=== PATIENT | female | born 1955 | race Caucasian/White ===

== ENCOUNTER 2017-01-22 00:53 | Inpatient (IN) ==
--- NOTE | 2017-01-22 02:59 | Emergency Department Note ---
I, Bernie Chow, am scribing for, and in the presence of, Niya Ruelas MD 01:37. IJessenia Leanne, MD, personally performed the services described in this documentation, ascribed by Bernie Chow in my presence, and it is both accurate and complete . Arrival - Arrival Chief Complaint: Shortness of Breath Stated Complaint: shortness of breath ED Nursing Triage Note: Patient to room via ems. Patient was transfered from [facility] for shortness of breath due to renal failure. Patient states she just feels week. Mode of Arrival: Stretcher Limitations: No Limitations Source: Patient - History of Present Illness HPI Narrative: Pt is a 61 y/o female that was transferred to the ED from [facility] via EMS with c/o SOB that has been going on for 6 weeks. Pt has associated sxs of weakness, epistaxis, urgency to urinate but unable to, bilateral edema in lower extremities, and bleeding from the site she is dialyzed at on her right arm for 3 days. Pt reports she is able to make some urine. She states she was last dialyzed on Thursday, January 19, 2017. Pt admits she is on a blood thinner but is unsure of which one. 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 Carr at the [facility] [place] in [place], [place]. Pt denies going to her follow ups since surgery yet. Pt reports this is the first time she has came to the ED for the SOB since it came on. Pt states some relief with sitting up. Pt reports she used to smoke but quit after her CABG 6 weeks ago. Pt has a PMHx of COPD, Hepatitis C, end stage renal failure, and IDDM. No other complaints/pain in ED. Onset (ago): week(s) Consistency: constant Severity: moderate Severity scale (1-10): 5 Quality: other Allergies/Adverse Reactions: Allergies Allergy/AdvReac Type Severity Reaction Status Date / Time Iodinated Contrast Media - Allergy RASH Verified 01/22/17 01:00 Oral and [Iodinated Contrast Media - IV Dye] Penicillins Allergy ANAPHYLAXIS Verified 01/22/17 01:00 aspirin AdvReac Nausea Verified 01/22/17 01:00 cephalexin [From Keflex] AdvReac Vomiting Verified 01/22/17 01:00 Sulfa (Sulfonamide AdvReac Vomiting Verified 01/22/17 01:00 Antibiotics) Home Medications: Home Medications Medication Instructions Recorded Confirmed Type ARIPiprazole [Abilify] 10 mg PO BEDTIME 04/04/16 04/04/16 History Azelastine HCl [Azelastine 0.1% 1 spray BOTH NARES BID 04/04/16 04/04/16 History Nasal [place]] Budesonide/Formoterol 160-4.5 1 puff INH BID 04/04/16 04/04/16 History [Symbicort 160-4.5] Calcium Acetate [Phoslo] 667 mg PO TID W/MEALS 04/04/16 04/04/16 History Cinacalcet HCl [Sensipar] 60 mg PO DAILY W/SUPPER 04/04/16 04/04/16 History Cyclobenzaprine [Flexeril] 10 mg PO TID 04/04/16 04/04/16 History Diazepam Tab [Valium Tab] 2 mg PO BID 04/04/16 04/04/16 History Fexofenadine [Orin] 60 mg PO DAILY 04/04/16 04/04/16 History Fluticasone 50 Mcg Nasal [place] 1 spray BOTH NARES DAILY 04/04/16 04/04/16 History [Flonase Nasal [place]] Levothyroxine Tab [Synthroid Tab] 50 mcg PO DAILY@0700 04/04/16 04/04/16 History Linagliptin [Tradjenta] 5 mg PO DAILY 04/04/16 04/04/16 History Lurasidone HCl [Latuda] 20 mg PO BIDPC 04/04/16 04/04/16 History Mirtazapine 7.5 mg PO BID 04/04/16 04/04/16 History Mirtazapine [Remeron] 15 mg PO BEDTIME PRN 04/04/16 04/04/16 History Pantoprazole Tab [Protonix Tab] 40 mg PO BID 04/04/16 04/04/16 History Pravastatin [Pravachol] 20 mg PO BEDTIME 04/04/16 04/04/16 History Pregabalin [Lyrica] 50 mg PO BEDTIME 04/04/16 04/04/16 History Promethazine Liquid [Phenergan 25 mg PO Q6H 04/04/16 04/04/16 History Liquid] Promethazine Tab [Phenergan Tab] 25 mg PO Q6H PRN 04/04/16 04/04/16 History Ropinirole HCl [Requip] 0.5 mg PO BEDTIME 04/04/16 04/04/16 History Warfarin Sodium [Jantoven] 10 mg PO DAILY 04/04/16 04/04/16 History clonazePAM [Klonopin] 1 mg PO BID PRN 04/04/16 04/04/16 History levETIRAcetam TAB [Keppra Tab] 500 mg PO BID 04/04/16 04/04/16 History tiZANidine [Zanaflex] 4 mg PO TID 04/04/16 04/04/16 History Review of System - Review of System 12 point system: reviewed and no additional remarkable complaints except as stated - Review of System Constitutional: Present: weakness. Absent: chills, fever Head/Ears/Nose/Throat: Present: epistaxis Respiratory: Present: other (SOB) Cardiovascular: Absent: chest pain Gastrointestinal: Absent: abdominal pain, nausea, vomiting Genitourinary female: Present: urgency (urgency but unable to urinate) Musculoskeletal: Present: other (bilateral edema of the lower extremities). Absent: arm pain, back pain, neck pain Skin: Present: other (bleeding at site pt is dialyzed at on right arm). Absent : rash Neurological: Absent: headache Psychiatric: Absent: anxiety Medical,Surgical,& Family Hx - Medical History Neurology: History of: Seizures (TAKES KEPPRA), Vertigo Endocrine: History of: Diabetes Mellitus (IDDM), Dyslipidemia Other: History of: Miscellaneous Medical Problems (Sinus surgery) - Surgical History HEENT Surgeries: Surgical HX of: Tonsilectomy & Adenoidectomy Abdominal Surgeries: Surgical HX of: Cholecystectomy - Social History Smoking Status: Never smoker Frequency of Alcohol Use: None Type of Drug Use: None Exam Vital Signs: Vital Signs Temperature 97.2 F L 01/22/17 00:53 Pulse Rate 90 01/22/17 00:53 Respiratory Rate 20 01/22/17 00:53 Blood Pressure 167/101 01/22/17 00:53 O2 Sat by Pulse Oximetry 93 L 01/22/17 00:53 - General General appearance: alert, in no apparent distress - Head Head exam: Present: atraumatic, normocephalic - Eye Eye exam: Present: PERRL, EOMI - ENT ENT exam: Present: mucous membranes moist, other (epistaxis). Absent: mucous membranes dry - Neck Neck exam: Present: full ROM. Absent: tenderness - Chest Chest inspection: Present: symmetric chest wall rise. Absent: tenderness - Respiratory Respiratory exam: Present: normal lung sounds bilaterally. Absent: respiratory distress - Cardiovascular Cardiovascular exam: Present: regular rate, normal rhythm. Absent: normal heart sounds (mechanical heart sounds) - Abdominal Exam Abdominal exam: Present: soft. Absent: tenderness - Extremities Exam Extremities exam: Present: full ROM, pedal edema. Absent: tenderness - Back Exam Back exam: Present: full ROM. Absent: tenderness - Neurological Exam Neurological exam: Present: alert, oriented X3, CN II-XII intact. Absent: motor sensory deficit - Psychiatric Psychiatric exam: Present: normal affect, normal mood - Skin Skin exam: Present: warm, dry, other (multiple sites that are bleeding from previous blood draw attempts and dialysis site) Course Course Narrative: attempted EJ placement with ultrasound but never got flash back. Was apparently in because pt developed hematoma. bandage applied. Figure 8 stitch places at last dialysis site with resolution of bleeding. Disposition Clinical Impression: Anemia, CKD (chronic kidney disease), SOB (shortness of breath), Bleeding from dialysis shunt Case discussed with: patient Condition: Guarded Additional Instructions: admit to hospitalist
[2017-01-22 03:22] LABS: Basophils # 0.1 10*3/uL (0.0-0.2); Basophils % 0.6 % (0.0-0.8); Eosinophils # 0.1 10*3/uL (0.0-0.87); Hematocrit 23.3 VOL% (35.7-47.0); Hemoglobin 7.1 GM/DL (12.0-16.0); Immature Granulocytes Absolute 0.09 #; Lymphocytes # 1.4 10*3/uL (1.4-4.0); Lymphocytes % 15.5 % (21.3-54.2); Mean Corpuscular HGB Conc 30.5 GM/DL (32-36); Mean Corpuscular Hemoglobin 32 PG (27-34); Mean Corpuscular Volume 104.5 FL (87-102); Mean Platelet Volume 11.2 FL (9.6-12.0); Monocytes # 0.7 10*3/uL (0.11-0.8); Monocytes % 7.7 % (1.7-12.7); NRBC # 0.03 10*3/uL; Neutrophils # 6.9 10*3/uL (1.4-7.4); Neutrophils % 74.2 % (38.7-73.9); Platelet Count 176 T/CUMM (130-400); Red Blood Count 2.23 MC/CUMM (3.8-5.5); Red Cell Distribution Width 26.1 % (9.3-17.3); White Blood Count 9.2 T/CUMM (4-12)
[2017-01-22] MEDS ORDERED: ALBUTEROL 2.5 MG/3 ML NEB RESP TX PRN ×2 (03:22→03:33)
--- NOTE | 2017-01-22 03:43 | Hospitalist History & Physical ---
Assessment and Plan (1) History of COPD Status: Acute Current Visit: Yes (2) Elevated proBNP Status: Acute Current Visit: Yes (3) Increase in transaminases Status: Acute Current Visit: Yes (4) ESRD on dialysis Problem details: Routine CHD today. 2K, 4hrs. Status: Chronic Current Visit : No (5) Anemia Status: Acute Current Visit: Yes (6) SOB (shortness of breath) Status: Acute Current Visit: Yes (7) Bleeding from dialysis shunt Status: Acute Assessment and plan: We will admit this patient to the unit for closer observation. Although her vital signs are stable her general appearance is concerning for me. She says that she is short of breath want to get a 2D echo of her heart. Coags were drawn at outside facility that have been ordered here will need to follow-up on that. Recommend that she get a couple units of packed red blood cells transfused during dialysis. Will consult nephrology for their input. Depending on the results of the echo may or may not need to consult cardiology. Put in order to confirm home medications. They have not been confirmed. We do know that patient is on warfarin and INR has been ordered and it has come back at 18.8. Discussed with pharmacy about appropriate options given his high INR and active signs of bleeding. We are going to explore Kcentra and vitamin K. I can not do a central line with an INR that high. We do not want to drive the INR to below 2.5 secondary to her having heart valves that are mechanical. Pharmacy will dose the Kcentra and we will repeat an INR this morning. Current Visit: Yes History of Present Illness Chief complaint: Shortness of breath History of present illness: Ms. Betancourt is a 61 year old female past medical history of end-stage renal disease COPD, asthma, peripheral neuropathy, and seizure disorder who was in her normal state of health until approximately 2 days ago. She presented an outside hospital with shortness of breath. She reports that is at rest. She reports that is gradually worsened over the past few days. She says she has been short of breath ever since her valve surgery which involve replacing 2 valves in about past at [facility]. She has been on Coumadin but does not has not had the INR checked in a couple of weeks. She denies any chest pain. There has been no upper airway symptoms associated with this. Patient was found to have elevated proBNP at the outside hospital. Patient was accepted his transfer to our hospital. Patient does look short of breath although her vital signs stable I would feel more comfortable if she was in the unit setting. IV access is being issue. Patient has refused central arm. I was consulted to admit her through the emergency room. Home Medications Medication Instructions Recorded Confirmed Type ARIPiprazole [Abilify] 10 mg PO BEDTIME 04/04/16 04/04/16 History Azelastine HCl [Azelastine 0.1% 1 spray BOTH NARES BID 04/04/16 04/04/16 History Nasal [place]] Budesonide/Formoterol 160-4.5 1 puff INH BID 04/04/16 04/04/16 History [Symbicort 160-4.5] Calcium Acetate [Phoslo] 667 mg PO TID W/MEALS 04/04/16 04/04/16 History Cinacalcet HCl [Sensipar] 60 mg PO DAILY W/SUPPER 04/04/16 04/04/16 History Cyclobenzaprine [Flexeril] 10 mg PO TID 04/04/16 04/04/16 History Diazepam Tab [Valium Tab] 2 mg PO BID 04/04/16 04/04/16 History Fexofenadine [Orin] 60 mg PO DAILY 04/04/16 04/04/16 History Fluticasone 50 Mcg Nasal [place] 1 spray BOTH NARES DAILY 04/04/16 04/04/16 History [Flonase Nasal [place]] Levothyroxine Tab [Synthroid Tab] 50 mcg PO DAILY@0700 04/04/16 04/04/16 History Linagliptin [Tradjenta] 5 mg PO DAILY 04/04/16 04/04/16 History Lurasidone HCl [Latuda] 20 mg PO BIDPC 04/04/16 04/04/16 History Mirtazapine 7.5 mg PO BID 04/04/16 04/04/16 History Mirtazapine [Remeron] 15 mg PO BEDTIME PRN 04/04/16 04/04/16 History Pantoprazole Tab [Protonix Tab] 40 mg PO BID 04/04/16 04/04/16 History Pravastatin [Pravachol] 20 mg PO BEDTIME 04/04/16 04/04/16 History Pregabalin [Lyrica] 50 mg PO BEDTIME 04/04/16 04/04/16 History Promethazine Liquid [Phenergan 25 mg PO Q6H 04/04/16 04/04/16 History Liquid] Promethazine Tab [Phenergan Tab] 25 mg PO Q6H PRN 04/04/16 04/04/16 History Ropinirole HCl [Requip] 0.5 mg PO BEDTIME 04/04/16 04/04/16 History Warfarin Sodium [Jantoven] 10 mg PO DAILY 04/04/16 04/04/16 History clonazePAM [Klonopin] 1 mg PO BID PRN 04/04/16 04/04/16 History levETIRAcetam TAB [Keppra Tab] 500 mg PO BID 04/04/16 04/04/16 History tiZANidine [Zanaflex] 4 mg PO TID 04/04/16 04/04/16 History Allergies Allergy/AdvReac Type Severity Reaction Status Date / Time Iodinated Contrast Media - Allergy RASH Verified 01/22/17 01:00 Oral and [Iodinated Contrast Media - IV Dye] Penicillins Allergy ANAPHYLAXIS Verified 01/22/17 01:00 aspirin AdvReac Nausea Verified 01/22/17 01:00 cephalexin [From Keflex] AdvReac Vomiting Verified 01/22/17 01:00 Sulfa (Sulfonamide AdvReac Vomiting Verified 01/22/17 01:00 Antibiotics) Medical,Surgical,& Family Hx - Medical History Neurology: History of: Seizures (TAKES KEPPRA), Vertigo Endocrine: History of: Diabetes Mellitus (IDDM), Dyslipidemia Other: History of: Miscellaneous Medical Problems (Sinus surgery) - Surgical History Cardiac Surgeries: Sugical HX of: Cardiac Surgery HEENT Surgeries: Surgical HX of: Tonsilectomy & Adenoidectomy Abdominal Surgeries: Surgical HX of: Cholecystectomy - Family History Family History: Reports;: Family Cancer, Family Diabetes, Family Heart Disease, Family Hypertension, Family Stroke - Social History Smoking Status: Former smoker Frequency of Alcohol Use: None Type of Drug Use: None 12 point system: reviewed and no additional remarkable complaints except as stated Exam - Constitutional Vitals: Period Temp Pulse Resp BP Sys/Vargas Pulse Ox Last 24 Hr 97.2 F-97.2 F 90-90 20-20 167-167/101-101 93 - General General appearance: alert, in some apparent distress - Head Head exam: Present: atraumatic, normocephalic - Eye Eye exam: Present: PERRL, EOMI - ENT ENT exam: Present: mucous membranes moist, other (epistaxis) - Neck Neck exam: Present: full ROM. Absent: tenderness - Chest Chest inspection: Present: symmetric chest wall rise. Absent: tenderness - Respiratory Respiratory exam: Present: Some rales bilaterally and slight wheeze - Cardiovascular Cardiovascular exam: Present: regular rate, normal rhythm. With mechanical heart valve sounds . - Abdominal Exam Abdominal exam: Present: soft. Absent: tenderness - Extremities Exam Extremities exam: Present: full ROM, pedal edema. Absent: tenderness - Back Exam Back exam: Present: full ROM. Absent: tenderness - Neurological Exam Neurological exam: Present: alert, oriented X3, CN II-XII intact. Absent: motor sensory deficit - Psychiatric Psychiatric exam: Present: normal affect, normal mood - Skin Skin exam: Present: warm, dry, other (multiple sites that are bleeding from previous blood draw attempts and dialysis site) Results - Labs CBC & BMP: 01/22/17 03:15 Labs: Labs from outside facility white count 7.36 hemoglobin 6. hematocrit 23.8 platelets 167 sodium 140 potassium 4.1 chloride 100 bicarb 30 creatinine 6.6 BUN 50 calcium 8.9 glucose 140 7. total bili 2.7 total protein 6.5 albumin 3.0 ALP is 123 ALT is 123 AST 61 magnesium is 1.6 creatinine kinase is 59 CK-MB is 1 troponin 0.068 proBNP 255,361
[2017-01-22 04:08] LABS: PT Patient Result 198.7 SECS
[2017-01-22 04:09] LABS: Partial Thromboplastin Time 64.6 SECS (0-40)
[2017-01-22 04:10] LABS: INR 18.8
[2017-01-22] MEDS ORDERED: LORazepam 2 MG/1 ML VIAL ONE (04:20)
[2017-01-22] MEDS ORDERED: LORazepam 2 MG/1 ML VIAL IM ONE (04:22)
[2017-01-22] MEDS ORDERED: LIDOCAINE 2% 5 ML VIAL MISC INJ ONE (04:27)
[2017-01-22] MEDS ORDERED: PHYTONADIONE 5 MG TABLET PO STA (04:29)
[2017-01-22 04:57] LABS: Eosinophils 3 % (0-10); Lymphocytes 15 % (20-55); Segmented Neutrophils 78 % (50-85); Total Cells Counted 100
[2017-01-22 05:00] LABS: Ovalocytes 2+; Platelet Estimate Normal; Polychromasia Few
[2017-01-22] MEDS ORDERED: PROTHROMBIN COMPLEX CONCENTRATE IV ONE (05:00)
[2017-01-22] MEDS ORDERED: HYDROmorphone 2 MG/1 ML VIAL IV PRN ×2 (05:24→05:27)
[2017-01-22 05:25] LABS: Albumin 3.2 G/DL (3.4-5.0); Calcium 8.5 MG/DL (8.5-10.1); Osmolality,Calculated 290.5 MOS/KG (273-304); Potassium 4.9 MMOL/L (3.5-5.1); Total Protein 6.2 G/DL (6.4-8.3)
--- NOTE | 2017-01-22 05:54 | Nephrology Consult Note ---
History of Present Illness Chief complaint: ESRD History of present illness: Ms. Betancourt is a 61 year old female with end-stage renal disease who presents with a history of having had a coronary artery bypass grafting in November and apparently has been home for approximately 2 weeks. She presented oozing from any needle sticks and is reportedly been found to have an INR of 18. She has an interosseous line for emergent use but does not have other IV access. She is bleeding from attempts at IV access. On exam her she is able to answer questions and and is mildly dyspneic her chest is fairly clear and heart without rub or gallop. She does have a right upper arm dialysis access. She has 1+-2+ peripheral edema. Her potassium is 4.9 hematocrit 23% INR 18.8 platelet count 170. Impression excessive anticoagulation #2 end-stage renal disease #3 recent sternal splitting operation with a history of valve replacement. Plan she will need dialysis later today and we can administer fresh frozen plasma during dialysis. [place] is guarded Home Medications Medication Instructions Recorded Confirmed Type ARIPiprazole [Abilify] 10 mg PO BEDTIME 04/04/16 04/04/16 History Azelastine HCl [Azelastine 0.1% 1 spray BOTH NARES BID 04/04/16 04/04/16 History Nasal [place]] Budesonide/Formoterol 160-4.5 1 puff INH BID 04/04/16 04/04/16 History [Symbicort 160-4.5] Calcium Acetate [Phoslo] 667 mg PO TID W/MEALS 04/04/16 04/04/16 History Cinacalcet HCl [Sensipar] 60 mg PO DAILY W/SUPPER 04/04/16 04/04/16 History Cyclobenzaprine [Flexeril] 10 mg PO TID 04/04/16 04/04/16 History Diazepam Tab [Valium Tab] 2 mg PO BID 04/04/16 04/04/16 History Fexofenadine [Orin] 60 mg PO DAILY 04/04/16 04/04/16 History Fluticasone 50 Mcg Nasal [place] 1 spray BOTH NARES DAILY 04/04/16 04/04/16 History [Flonase Nasal [place]] Levothyroxine Tab [Synthroid Tab] 50 mcg PO DAILY@0700 04/04/16 04/04/16 History Linagliptin [Tradjenta] 5 mg PO DAILY 04/04/16 04/04/16 History Lurasidone HCl [Latuda] 20 mg PO BIDPC 04/04/16 04/04/16 History Mirtazapine 7.5 mg PO BID 04/04/16 04/04/16 History Mirtazapine [Remeron] 15 mg PO BEDTIME PRN 04/04/16 04/04/16 History Pantoprazole Tab [Protonix Tab] 40 mg PO BID 04/04/16 04/04/16 History Pravastatin [Pravachol] 20 mg PO BEDTIME 04/04/16 04/04/16 History Pregabalin [Lyrica] 50 mg PO BEDTIME 04/04/16 04/04/16 History Promethazine Liquid [Phenergan 25 mg PO Q6H 04/04/16 04/04/16 History Liquid] Promethazine Tab [Phenergan Tab] 25 mg PO Q6H PRN 04/04/16 04/04/16 History Ropinirole HCl [Requip] 0.5 mg PO BEDTIME 04/04/16 04/04/16 History Warfarin Sodium [Jantoven] 10 mg PO DAILY 04/04/16 04/04/16 History clonazePAM [Klonopin] 1 mg PO BID PRN 04/04/16 04/04/16 History levETIRAcetam TAB [Keppra Tab] 500 mg PO BID 04/04/16 04/04/16 History tiZANidine [Zanaflex] 4 mg PO TID 04/04/16 04/04/16 History Allergies Allergy/AdvReac Type Severity Reaction Status Date / Time Iodinated Contrast Media - Allergy RASH Verified 01/22/17 01:00 Oral and [Iodinated Contrast Media - IV Dye] Penicillins Allergy ANAPHYLAXIS Verified 01/22/17 01:00 aspirin AdvReac Nausea Verified 01/22/17 01:00 cephalexin [From Keflex] AdvReac Vomiting Verified 01/22/17 01:00 Sulfa (Sulfonamide AdvReac Vomiting Verified 01/22/17 01:00 Antibiotics) Medical,Surgical,& Family Hx - Medical History Cardio: History of: Cardiovascular Problems (TEAR IN AORTA) Psychological: History of: Anxiety Disorders, Depression Neurology: History of: Peripheral Neuropathy (FEET/TOES), Seizures (TAKES KEPPRA ), Vertigo Endocrine: History of: Diabetes Mellitus (IDDM), Dyslipidemia Respiratory: History of: Asthma, COPD Renal: History of: Renal Failure Gastrointestinal: History of: GERD Hematology: History of: Clotting Problems (pt states she had a clot "three or four years ago") No history of: Blood Transfusion Reaction Other: History of: Miscellaneous Medical Problems (Sinus surgery) No history of: Anesthesia Reactions - Surgical History Cardiac Surgeries: Sugical HX of: Cardiac Catheterization (NO STENTS PLACE, NO HEART DISEASE NOTED), Cardiac Surgery HEENT Surgeries: Surgical HX of: Tonsilectomy & Adenoidectomy Abdominal Surgeries: Surgical HX of: Abdominal Surgery (COLON REMOVED), Cholecystectomy Reproductive Surgeries: Surgical HX of;: Hysterectomy - Family History Family History: Reports;: Family Cancer, Family Diabetes, Family Heart Disease, Family Hypertension, Family Stroke - Social History Smoking Status: Former smoker Frequency of Alcohol Use: None Type of Drug Use: None Review of Systems 12 point system: reviewed and no additional remarkable complaints except as stated Exam - Vital Signs Vital signs: Period Temp Pulse Resp BP Sys/Vargas Pulse Ox Last 24 Hr 93 28 176/97 95 - General Appearance General appearance: well-developed, well-nourished, appears started age EENT: ATNC Neck: no JVD, no thyromegaly, no carotid bruit, supple Respiratory: no kyphosis, no scoliosis Cardiology: no murmurs, no rub, no gallops, no edema, regular rate, regular rhythm, normal S1, normal S2 Gastrointestinal: normoactive bowel sounds Integumentary: no rash, warm and dry Neurologic: no focal deficit, no asterixis, alert and oriented x3, reflexes 2+ and symmetric, gait normal, strength 5/5 Musculoskeletal: no deformities, no erythema, no cyanosis, no clubbing Psychiatric: mood/affect appropriate (intraosseous line r tibia), cooperative Results - Labs CBC & BMP: 01/22/17 03:15 01/22/17 05:05 Assessment and Plan (1) ESRD on dialysis Problem details: Routine CHD today. 2K, 4hrs. Status: Chronic Assessment and plan: Dialysis today with fresh frozen plasma administration Current Visit: No Specialty Discharge - Follow Up or Referrals - Speciality Discharge Instructions Nephrology Instructions: Hemodialysis today
[2017-01-22] MEDS: ALBUTEROL/IPRATROPIUM 3 ML NEB RESP TX SCH ×3 (06:45→18:55)
--- NOTE | 2017-01-22 07:18 | Cardiology Consult Note ---
Assessment and Plan - Time spent with patient Time spent with patient: Greater than 30 minutes (1) Status post mechanical aortic valve replacement Status: Acute Assessment and plan: This was recently cleared out at [facility], [place] in [facility]. We do not have the records in this regard. Is a question she had bypass surgery with this are other questions about the surgery. We are trying to get records. She will need anticoagulation but at this time with her bleeding issues and her Coumadin toxicity this will need to be monitored and restarted later. Current Visit: Yes (2) ESRD on dialysis Problem details: Routine CHD today. 2K, 4hrs. Status: Chronic Assessment and plan: She probably had dialysis today and at that time received blood products. Current Visit: No (3) Anemia Status: Acute Assessment and plan: This is secondary to her bleeding issues. She is to receive blood products during dialysis. Current Visit: Yes (4) Bleeding from dialysis shunt Status: Acute Assessment and plan: Secondary to her Coumadin toxicity and severely elevated INR. Current Visit: Yes (5) History of COPD Status: Chronic Assessment and plan: This is a chronic issue. Current Visit: Yes (6) Elevated proBNP Status: Acute Assessment and plan: This may indicate underlying congestive heart failure. We'll await echocardiogram. Current Visit: Yes (7) Coumadin toxicity Status: Acute Assessment and plan: Severely elevated INR with bleeding issues. Waiting to get blood products during dialysis. Current Visit: Yes (8) Elevated blood pressure reading Status: Acute Assessment and plan: We'll monitor this. May need to adjust medications after dialysis. Current Visit: Yes History of Present Illness - Data of Consult Patient: new to practice Consult date: 01/22/17 Requesting Physician: Yury Munroe - Consult Narrative Reason for consult: CAD, CHF, aVR History of present illness: Ms. Betancourt is a 61 year old female who apparently was admitted earlier this morning in transfer from outside hospital with shortness of breath and progressive over the last few days. She also was noted to have an INR severely elevated at 18.8. She apparently has had multiple areas of bleeding especially from her AV fistula for dialysis. Her medical history significant in that she has diabetes mellitus, history of COPD, is stage renal disease on dialysis, peripheral neuropathy, and seizure disorder. Her cardiac history is significant in that recently she states she went to [facility] [place] in [facility] where she was evaluated according to her for bronchitis. While there she underwent aortic valve replacement with what is in with mechanical valve on examination as well as bypass surgery. We do not have records to confirm exactly what was done. She was apparently placed on warfarin after her valve replacement. We don't have any significant outside records and the patient is not a overall good historian. At present the patient just complains of feeling hot, shortness of breath is nonspecific diffuse pain. Review of the chart indicates dialysis planned for today and she will receive blood products including fresh frozen plasma and packed red cells. CC: Ellen Paris MD - Home Medications and Allergies Home Medications: Home Medications Medication Instructions Recorded Confirmed Type ARIPiprazole [Abilify] 10 mg PO BEDTIME 04/04/16 04/04/16 History Azelastine HCl [Azelastine 0.1% 1 spray BOTH NARES BID 04/04/16 04/04/16 History Nasal [place]] Budesonide/Formoterol 160-4.5 1 puff INH BID 04/04/16 04/04/16 History [Symbicort 160-4.5] Calcium Acetate [Phoslo] 667 mg PO TID W/MEALS 04/04/16 04/04/16 History Cinacalcet HCl [Sensipar] 60 mg PO DAILY W/SUPPER 04/04/16 04/04/16 History Cyclobenzaprine [Flexeril] 10 mg PO TID 04/04/16 04/04/16 History Diazepam Tab [Valium Tab] 2 mg PO BID 04/04/16 04/04/16 History Fexofenadine [Orin] 60 mg PO DAILY 04/04/16 04/04/16 History Fluticasone 50 Mcg Nasal [place] 1 spray BOTH NARES DAILY 04/04/16 04/04/16 History [Flonase Nasal [place]] Levothyroxine Tab [Synthroid Tab] 50 mcg PO DAILY@0700 04/04/16 04/04/16 History Linagliptin [Tradjenta] 5 mg PO DAILY 04/04/16 04/04/16 History Lurasidone HCl [Latuda] 20 mg PO BIDPC 04/04/16 04/04/16 History Mirtazapine 7.5 mg PO BID 04/04/16 04/04/16 History Mirtazapine [Remeron] 15 mg PO BEDTIME PRN 04/04/16 04/04/16 History Pantoprazole Tab [Protonix Tab] 40 mg PO BID 04/04/16 04/04/16 History Pravastatin [Pravachol] 20 mg PO BEDTIME 04/04/16 04/04/16 History Pregabalin [Lyrica] 50 mg PO BEDTIME 04/04/16 04/04/16 History Promethazine Liquid [Phenergan 25 mg PO Q6H 04/04/16 04/04/16 History Liquid] Promethazine Tab [Phenergan Tab] 25 mg PO Q6H PRN 04/04/16 04/04/16 History Ropinirole HCl [Requip] 0.5 mg PO BEDTIME 04/04/16 04/04/16 History Warfarin Sodium [Jantoven] 10 mg PO DAILY 04/04/16 04/04/16 History clonazePAM [Klonopin] 1 mg PO BID PRN 04/04/16 04/04/16 History levETIRAcetam TAB [Keppra Tab] 500 mg PO BID 04/04/16 04/04/16 History tiZANidine [Zanaflex] 4 mg PO TID 04/04/16 04/04/16 History Allergies/Adverse Reactions: Allergies Allergy/AdvReac Type Severity Reaction Status Date / Time Iodinated Contrast Media - Allergy RASH Verified 01/22/17 01:00 Oral and [Iodinated Contrast Media - IV Dye] Penicillins Allergy ANAPHYLAXIS Verified 01/22/17 01:00 aspirin AdvReac Nausea Verified 01/22/17 01:00 cephalexin [From Keflex] AdvReac Vomiting Verified 01/22/17 01:00 Sulfa (Sulfonamide AdvReac Vomiting Verified 01/22/17 01:00 Antibiotics) Review of systems: Constitutional: Denies anorexia, chills, weight gain, weight loss Eyes: Denies acute visual changes or loss of vision Ears: Denies decreased hearing, vertigo Nose, mouth and throat: Denies dysphagia, epistaxis, headaches, neck pain, tongue swelling Neck: Denies thyromegaly or masses. No stiffness. Cardiovascular: as per HPI Respiratory: Denies recent cough, dyspnea, hemoptysis, dyspnea on exertion, wheezing except for that associated with history present illness Gastrointestinal: Denies abdominal pain, constipation, dyspepsia, dysphagia, hematemesis, hematochezia, melena, nausea, vomiting Genitourinary: Denies dysuria, hematuria, nocturia Musculoskeletal: Denies arthralgias, joint swelling, muscle weakness, myalgias Neurological: denies abnormal gait, abnormal speech, confusion, convulsions, frequent falls, headaches, memory loss, syncope Psychiatric: Denies anxiety, confusion, depression Endocrine: Denies cold intolerance, heat intolerance; history of hypothyroidism and diabetes Hematologic/Lymphatic: No bleeding issues for multiple spots secondary to cerebral elevated INR. Dermatologic: Denies Rash, shingles Medical,Surgical,& Family Hx - Medical History Cardio: History of: CAD (question of bypass surgery with recent cardiac surgery. ), Valvular Heart Disease (has had recent aortic valve replacement), Cardiovascular Problems (impression recent aortic issue.) Psychological: History of: Anxiety Disorders, Depression Neurology: History of: Peripheral Neuropathy (FEET/TOES), Seizures (TAKES KEPPRA ), Vertigo Endocrine: History of: Diabetes Mellitus (IDDM), Dyslipidemia Respiratory: History of: Asthma, COPD Renal: History of: Renal Failure Gastrointestinal: History of: GERD (on dialysis) Hematology: History of: Clotting Problems (pt states she had a clot "three or four years ago") No history of: Blood Transfusion Reaction Other: History of: Miscellaneous Medical Problems (Sinus surgery) No history of: Anesthesia Reactions - Surgical History Cardiac Surgeries: Sugical HX of: Cardiac Catheterization (NO STENTS PLACE, NO HEART DISEASE NOTED), Cardiac Surgery HEENT Surgeries: Surgical HX of: Tonsilectomy & Adenoidectomy Abdominal Surgeries: Surgical HX of: Abdominal Surgery (COLON REMOVED), Cholecystectomy Reproductive Surgeries: Surgical HX of;: Hysterectomy - Family History Family History: Reports;: Family Cancer, Family Diabetes, Family Heart Disease, Family Hypertension, Family Stroke - Social History Smoking Status: Former smoker Frequency of Alcohol Use: None Type of Drug Use: None Physical Examination Vital Signs Temp Pulse Resp BP Pulse Ox 97.2 F L 90 20 167/101 93 L 01/22/17 00:53 01/22/17 00:53 01/22/17 00:53 01/22/17 00:53 01/22/17 00:53 Other: General appearance: Overweight, uncomfortable Head exam: normal inspection, atraumatic Eye exam: Pupils are equal and reactive. EOMI. There is no trauma. Ear exam: Anatomically normal. Normal auditory acuity to conversation. Oral exam: No significant oral lesions. Neck exam: normal inspection no JVD. No carotid bruit. Trachea is in midline. She does have a bandage over the right side of the neck and over the supraclavicular area. Respiratory exam: She has a few rales anteriorly no gross wheezing. Cardiovascular exam: regular rate and rhythm, no murmur or gallop or rub but has mechanical aortic valve sounds. Chest wall/torso: Has midline sternotomy scar from previous CABG/AVR Peripheral Pulses: 1+ GI/Abdominal exam: Diminished bowel sounds, soft and nontender, no abdominal bruits or pulsatile masses. Musculoskeletal/Extremities exam: She has some edema of her left hand as well as her feet that is 1-2+. She has bandages over different aspects extremities especially the upper extremities. Neurological exam: alert, oriented X3. There is no gross neurologic deficits. Psychiatric exam: Cognitive function is grossly intact. Skin exam: Warm and dry Result/EKG - Labs CBC & BMP: 01/22/17 03:15 01/22/17 05:05 Lab Results: I have reviewed the past 24 hour labs Labs: Laboratory Results - last 24 hr 01/22/17 01/22/17 01/22/17 03:30 05:05 Unknown Sodium 139 Potassium 4.9 Chloride 97 L Carbon Dioxide 22 Anion Gap 24.9 H BUN 50 H Creatinine 7.10 H GFR Calculation 6 BUN/Creatinine Ratio 7.00 Glucose 119 H Calculated Osmolality 290.5 Calcium 8.5 Total Bilirubin 3.00 H AST 85 H ALT 112 H Alkaline Phosphatase 122 H Total Protein 6.2 L Albumin 3.2 L Globulin 3.0 Albumin/Globulin Ratio 1.0 L Blood Type A POSITIVE A POSITIVE Antibody Screen Negative Crossmatch See Detail - Impressions Impressions: No ECG on chart on telemetry she has sinus rhythm heart rate in the 90s. Quality Measures - Stroke Symptom Onset Unknown: No
--- NOTE | 2017-01-22 07:54 | XRay Report ---
XR chest 1V Indication: SOB Comparison: Chest x-ray dated January 21, 2017 Technique: Single frontal view of the chest Findings: Continued cardiomegaly status post cardiac valve replacement. Minimally improved diffuse right pulmonary opacification suggesting pneumonia or asymmetric pulmonary edema. Scattered opacities remain within the left lung. Osseous and surrounding soft tissue structures appear grossly unchanged. IMPRESSION: As above. PROCEDURE INTERPRETED AT [facility] DEPARTMENT OF RADIOLOGY Final Report Signed by: Dr Delbert Delgado
[2017-01-22 08:07] LABS: INR 2.1
[2017-01-22 08:37] LABS: Troponin I Only 0.059 NG/ML (0.00-0.045)
[2017-01-22] MEDS: predniSONE 20 MG TABLET PO SCH (08:58)
[2017-01-22] MEDS: FLUTICASONE/SALMETEROL 250-50 DISKUS 14 DOSE INH SCH ×2 (08:58→21:29)
--- NOTE | 2017-01-22 08:59 | Dialysis Note ---
Dialysis Note - Dialysis Note Ms. Betancourt is seen during her hemodialysis. We are ultrafiltering now to remove fluid as quickly as possible and she is breathing much better. We are giving fresh frozen plasma to reverse her Coumadin and overall she is tolerating this well.
--- NOTE | 2017-01-22 11:31 | EKG Report ---
Stationary ECG Study [facility] Test Date: 01/22/2017 3:28:33 AM Pat Name: OSBALDO FARIAS Department: Room: 106 Gender: F County Adviser: : 1955 Requested by: Niya Ruelas Order Number: [id number] Reading MD: LAWANDA MCCARTHY Intervals [place] Rate: 91 P: 68 MT: 138 QRS: 55 QRSD: 97 T: 56 QT: 369 QTc: 418 Interpretive Statements SINUS RHYTHM Electronically Signed On 01-23-17 21:51:18 CDT by LAWANDA MCCARTHY [email or web address]
[2017-01-22 11:50] LABS: INR 1.6; PT Patient Result 17.5 SECS
--- NOTE | 2017-01-22 12:52 | Event Note ---
Patient seen and examined. I have discussed the case with Dr. Correia and Dr. Munroe. She is currently undergoing dialysis and receiving fresh frozen plasma. She only has an intraosseous line in her right lower extremity. Repeat labs are pending. She does have some respiratory distress likely related to congestive heart failure and fluid overload. This is being treated with ultrafiltration dialysis at this time. Further recommendations will depend on her response to therapy. We are in the process of correcting her supratherapeutic INR of 18. She was treated with fresh frozen plasma and vitamin K injection. Continue intensive care unit treatment and close observation. Consider interventional radiology for central line placement due to lack of adequate IV access. Repeat labs and coagulation studies after dialysis and fresh frozen plasma infusion.
--- NOTE | 2017-01-22 17:52 | ECHO Report ---
Casandra Betancourt Exam Date: 01/22/2017 07:58 Referring Physician: Technologist: Rosy Husain RDCS Age: 61 Ht (in): 65 Wt (lb): 164 Gender: F Exam Location: [facility] Echo stage renal disease, Anemia, COPD, Coumadin toxicity BP: 182 / 78 HR: 88 Rhythm: Sinus Technical Quality: Fair IMPRESSIONS 1. Left ventricle is normal size systolic function with ejection fraction 60%. There is moderate concentric left ventricular hypertrophy. 2. Right ventricle is normal size and systolic function. 3. Right and left atrium are mildly moderately dilated. 4. Aortic valves a mechanical engineering technologist prosthetic device appears to be seated appropriately and functioning correctly. No gross abnormalities noted. 5. Mitral valve appears to be a prosthetic device and probably mechanical. There is a minimal regurgitation associated with this. 6. Tricuspid valve mild to moderate regurgitation. 7. Mild pulmonic valve insufficiency. 8. Severely elevated right-sided pressures. MEASUREMENTS (Male / Female) Normal Values 2D ECHO LV Diastolic Diameter PLAX 5.0 cm 4.2 - 5.9 / 3.9 - 5.3 cm LV Systolic Diameter PLAX 2.6 cm LV Fractional Shortening PLAX 47.7 % IVS Diastolic Thickness 1.4 cm 0.6 - 1.0 / 0.6 - 0.9 cm LVPW Diastolic Thickness 1.4 cm 0.6 - 1.0 / 0.6 - 0.9 cm RV Internal Dim ED PLAX 3.3 cm Aortic Root Diameter 2.2 cm LA Systolic Diameter LX 5.4 cm 3.0 - 4.0 / 2.7 - 3.8 cm DOPPLER TR Peak Velocity 415.0 cm/s TR Peak Gradient 68.9 mmHg FINDINGS Left Ventricle Normal left ventricular cavity size. Moderate left ventricular hypertrophy. Left ventricular ejection fraction is estimated at 60 %. Right Ventricle The right ventricle is normal in size and function. Right Atrium Moderately increased right atrial size. Left Atrium Moderately increased left atrial size. Mitral Valve Moderate mitral annular calcification. Prosthetic mitral valve mean gradient is 11 mmHg at a heart rate of 88 bpm. Mild prosthetic regurgitation. Aortic Valve Mechanical prosthetic aortic valve. Mean gradient 22 mmHg, LISANDRO 1.3 cm. No aortic valve regurgitation. Tricuspid Valve Morphologically normal tricuspid valve. [id number] tricuspid valve regurgitation. Tricuspid regurgitation velocities suggest a PAP of 79 mmHg. Pulmonic Valve Morphologically normal pulmonic valve. Mild pulmonary valve regurgitation. Pericardium Normal pericardium without effusion. Aorta Normal ascending aorta dimension. Yury Ni MD (Electronically Signed) Final Date: 22 Jan 2017 17:51
[2017-01-22] MEDS: ONDANSETRON 4 MG/2 ML VIAL IM PRN (20:33)
[2017-01-22] MEDS: DESITIN 4OZ/NYSTATIN 15 GRAM MIXTURE PASTE TOP SCH (21:29)
[2017-01-23] MEDS: ALBUTEROL/IPRATROPIUM 3 ML NEB RESP TX SCH ×4 (00:51→20:17)
[2017-01-23] MEDS: ONDANSETRON 4 MG/2 ML VIAL IM PRN (02:09)
[2017-01-23 05:46] LABS: Basophils % 0.3 % (0.0-0.8); Hematocrit 21.6 VOL% (35.7-47.0); Immature Granulocytes % 1.5 %; Immature Granulocytes Absolute 0.11 #; Lymphocytes # 0.8 10*3/uL (1.4-4.0); Lymphocytes % 11.3 % (21.3-54.2); Mean Corpuscular HGB Conc 29.2 GM/DL (32-36); Mean Corpuscular Hemoglobin 32 PG (27-34); Mean Platelet Volume 11.2 FL (9.6-12.0); Monocytes # 0.6 10*3/uL (0.11-0.8); Monocytes % 7.9 % (1.7-12.7); NRBC # 0.02 10*3/uL; Neutrophils # 5.8 10*3/uL (1.4-7.4); Platelet Count 151 T/CUMM (130-400); Red Cell Distribution Width 25.9 % (9.3-17.3); White Blood Count 7.3 T/CUMM (4-12)
[2017-01-23 05:54] LABS: INR 1.7; PT Patient Result 18.7 SECS
[2017-01-23 05:58] LABS: Hemoglobin 6.3 GM/DL (12.0-16.0)
[2017-01-23 06:13] LABS: Hypochromasia 1+; Macrocytosis 1+; Platelet Estimate Adequate
[2017-01-23 06:23] LABS: Albumin 3.5 G/DL (3.4-5.0); Bilirubin,Total 3.4 MG/DL (0.2-1.0); Calcium 9.2 MG/DL (8.5-10.1); Magnesium 2.3 MG/DL (1.8-2.4); Osmolality,Calculated 296.3 MOS/KG (273-304); Potassium 4.4 MMOL/L (3.5-5.1); Total Protein 6.6 G/DL (6.4-8.3)
[2017-01-23] MEDS ORDERED: SODIUM CHLORIDE 0.9% 250 ML IV PRN (07:32)
--- NOTE | 2017-01-23 08:23 | Cardiology Progress Note ---
Assessment and Plan (1) Status post mechanical aortic valve replacement Status: Acute Assessment and plan: This is a ON X valve and was implanted 12/07/2016. An echocardiogram this admission is stable. She will require anticoagulations with warfarin. Current Visit: Yes (2) ESRD on dialysis Problem details: Routine CHD today. 2K, 4hrs. Status: Chronic Assessment and plan: She is on dialysis for management of this. Current Visit: No (3) Anemia Status: Acute Assessment and plan: This is secondary to her bleeding issues. She is to receive blood products during dialysis again today. Current Visit: Yes (4) Bleeding from dialysis shunt Status: Acute Assessment and plan: This was secondary to her Coumadin toxicity and severely elevated INR. With her INR decreasing less than 2 is stable. No further bleeding. Current Visit: Yes (5) History of COPD Status: Chronic Assessment and plan: This is a chronic issue. And appears clinically stable. Current Visit: Yes (6) Elevated proBNP Status: Acute Assessment and plan: This may indicate underlying congestive heart failure. We'll await echocardiogram. Current Visit: Yes (7) Coumadin toxicity Status: Acute Assessment and plan: INR is now less than 2. I'm not sure what the issue is here but obviously her diet is not what it used to be. She has a history is somewhat being noncompliant. She may need frequent INR checks. Current Visit: Yes (8) Elevated blood pressure reading Status: Acute Assessment and plan: Blood pressure remains real elevated specific systolics today. We'll need to adjust her medication along with other symptoms. Current Visit: Yes (9) History of mitral valve replacement with mechanical valve Status: Acute Assessment and plan: This is a ON X mechanical valve implanted 12/07/2016. She will certainly need warfarin for this. Current Visit: Yes (10) Pulmonary hypertension Status: Acute Assessment and plan: She had had this documented previously at [facility] in [place] and continues to have this based on echocardiogram here. Current Visit: Yes Cardiology - PN: Subj Interval history: This morning the patient is much better. She still had any overt bleeding issues. Her INR is down to 1.7 this morning. She has no complaints of shortness of breath or chest pain. Patient had dialysis yesterday. She received fresh frozen plasma. Today her blood pressures remain elevated. The patient has no specific cardiac complaints. She's had no angina symptomatology. She denies shortness of breath. Her H&H today is 6.3/21.6 is to receive blood. WBC is normal as is the platelet count. Patient's chemistries reviewed and remained stable. Her INR is 1.7. Patient's echocardiogram yesterday revealed her ejection fractions percent with moderate concentric left ventricle hypertrophy with right ventricle normal size with mildly dilated right and left atria. The patient's aortic and mitral valves are mechanical devices. He well seated and functioning appropriately. There is mild to moderate tricuspid regurgitation and severely elevated right- sided pressures. The patient had several elevated right-sided pressures on cart catheterization and evaluation in [place] November 2016 as well. Discussion with the patient she states she is compliant with warfarin diet with this she states she is on 4 different diets. She states when her INR is elevated some she stops eating. Certainly this is not appropriate. I have reviewed the records from [facility] and the patient recently underwent (12/07/2016) CABG with a vein bypass graft to the RCA and had aortic and mitral valve replacements using ON X mechanical valves. She also had a complex maze procedure She was certainly need to be adequately with warfarin with these valves. Exam (Progress Note) - Constitutional Vitals: Period Temp Pulse Resp BP Sys/Vargas Pulse Ox Last 24 Hr 96.8 F-98.7 F 82-104 16-30 118-187/64-102 91-100 Exam: General appearance: Overweight, comfortable and in no distress. Head exam: normal inspection, atraumatic Eye exam: Pupils are equal and reactive. EOMI. There is no trauma. Ear exam: Normal auditory acuity to conversation. Neck exam: normal inspection no JVD. No carotid bruit. Trachea is in midline. Respiratory exam: Clear anteriorly no gross wheezing. Cardiovascular exam: regular rate and rhythm, systolic murmur over the precordium and toward the apex but has mechanical aortic valve sounds. Chest wall/torso: Has midline sternotomy scar from previous CABG/AVR Peripheral Pulses: 1+ GI/Abdominal exam: Diminished bowel sounds, soft and nontender. Musculoskeletal/Extremities exam: She is trivial edema this is markedly improved. AV fistula areas noted in the right side are bandaged. Neurological exam: alert, oriented X3. There is no gross neurologic deficits. Psychiatric exam: Cognitive function is grossly intact. Skin exam: Warm and dry Result/EKG - Labs CBC & BMP: 01/23/17 04:02 01/23/17 04:02 Lab Results: I have reviewed the past 24 hour labs Labs: Laboratory Results - last 24 hr 01/22/17 01/22/17 01/22/17 07:10 07:21 09:26 WBC RBC Hgb Hct MCV MCH MCHC RDW Plt Count MPV Neut % (Auto) Lymph % (Auto) [place] % (Auto) Eos % (Auto) Baso % (Auto) Neut # (Auto) Lymph # (Auto) [place] # (Auto) Eos # (Auto) Baso # (Auto) Immature Gran % Nucleated RBC % Immature Gran # Nucleated RBCs # Platelet Estimate Hypochromasia Macrocytosis INR 2.1 PT Patient/Control Mix 23.0 D Sodium Potassium Chloride Carbon Dioxide Anion Gap BUN Creatinine GFR Calculation BUN/Creatinine Ratio Glucose POC Glucose 146 H Calculated Osmolality Calcium Magnesium Total Bilirubin AST ALT Alkaline Phosphatase Total Creatine Kinase 83 CK-MB (CK-2) 1.4 Troponin I 0.059 H Total Protein Albumin Globulin Albumin/Globulin Ratio 01/22/17 01/23/17 01/23/17 11:35 04:02 04:02 WBC 7.3 RBC 2.00 L Hgb 6.3 L* Hct 21.6 L MCV 108.0 H MCH 32 MCHC 29.2 L RDW 25.9 H Plt Count 151 MPV 11.2 Neut % (Auto) 79.0 H Lymph % (Auto) 11.3 L [place] % (Auto) 7.9 Eos % (Auto) 0.0 Baso % (Auto) 0.3 Neut # (Auto) 5.8 Lymph # (Auto) 0.8 L [place] # (Auto) 0.6 Eos # (Auto) 0.0 Baso # (Auto) 0.0 Immature Gran % 1.5 Nucleated RBC % 0.3 Immature Gran # 0.11 Nucleated RBCs # 0.02 Platelet Estimate Adequate Hypochromasia 1+ Macrocytosis 1+ INR 1.6 1.7 PT Patient/Control Mix 17.5 D 18.7 Sodium Potassium Chloride Carbon Dioxide Anion Gap BUN Creatinine GFR Calculation BUN/Creatinine Ratio Glucose POC Glucose Calculated Osmolality Calcium Magnesium Total Bilirubin AST ALT Alkaline Phosphatase Total Creatine Kinase CK-MB (CK-2) Troponin I Total Protein Albumin Globulin Albumin/Globulin Ratio 01/23/17 04:02 WBC RBC Hgb Hct MCV MCH MCHC RDW Plt Count MPV Neut % (Auto) Lymph % (Auto) [place] % (Auto) Eos % (Auto) Baso % (Auto) Neut # (Auto) Lymph # (Auto) [place] # (Auto) Eos # (Auto) Baso # (Auto) Immature Gran % Nucleated RBC % Immature Gran # Nucleated RBCs # Platelet Estimate Hypochromasia Macrocytosis INR PT Patient/Control Mix Sodium 141 Potassium 4.4 Chloride 99 Carbon Dioxide 27 Anion Gap 19.4 H BUN 48 H Creatinine 5.50 H GFR Calculation 8 BUN/Creatinine Ratio 8.00 Glucose 159 H POC Glucose Calculated Osmolality 296.3 Calcium 9.2 Magnesium 2.3 Total Bilirubin 3.40 H AST 49 H ALT 86 H Alkaline Phosphatase 119 H Total Creatine Kinase CK-MB (CK-2) Troponin I Total Protein 6.6 Albumin 3.5 Globulin 3.1 Albumin/Globulin Ratio 1.1 - Impressions Impressions: Telemetry was sinus rhythm. Quality Measures - Stroke Symptom Onset Unknown: No
--- NOTE | 2017-01-23 08:25 | Nephrology Progress Note ---
Nephrology - PN: Subj Interval history: Ms. Betancourt is seen in follow-up of her end-stage renal disease. Her INR has corrected to 1.7. We discussed her anticoagulation with Dr. Ni and with her mechanical valves she will have to remain on Coumadin. We also discussed this with Ms. Betancourt and tried to impress upon her the absolute necessity of having her INR checked. Her chest is clear and her heart without rub or gallop. Blood pressure is 180/90 she is not short of breath. He has a hematocrit of 21 and will require 2 units packed red cells today. She is to get a PICC line for IV access and I think that is reasonable. We will plan to dialyze her tomorrow. Her Adams catheter can be removed and once she has IV access the interosseous line can come out as well. Exam (PN)-Nephrology - Vital Signs Vital signs: Period Temp Pulse Resp BP Sys/Vargas Pulse Ox Last 24 Hr 96.8 F-98.7 F 82-104 16-30 118-187/64-102 91-100 - Lab 01/23/17 04:02 01/23/17 04:02 Most recent lab results Calcium 9.2 MG/DL (8.5-10.1) 01/23/17 04:02 Magnesium 2.3 MG/DL (1.8-2.4) 01/23/17 04:02 Assessment and Plan (1) ESRD on dialysis Problem details: Routine CHD today. 2K, 4hrs. Status: Chronic Assessment and plan: Dialysis today with fresh frozen plasma administration Current Visit: No
[2017-01-23] MEDS ORDERED: cloNIDine 0.1 MG TABLET PO PRN (08:40)
[2017-01-23] MEDS: amLODIPine 5 MG TABLET PO SCH (09:11)
[2017-01-23] MEDS: DESITIN 4OZ/NYSTATIN 15 GRAM MIXTURE PASTE TOP SCH ×2 (09:11→21:48)
[2017-01-23] MEDS: predniSONE 20 MG TABLET PO SCH (09:11)
[2017-01-23] MEDS: FLUTICASONE/SALMETEROL 250-50 DISKUS 14 DOSE INH SCH ×2 (09:11→21:06)
[2017-01-23] MEDS: CARVEDILOL 6.25 MG TABLET PO SCH ×2 (09:11→21:06)
[2017-01-23] MEDS ORDERED: HEPARIN LOCK FLUSH 500 UNIT/5 ML SYRINGE IV ONE (11:21)
--- NOTE | 2017-01-23 11:23 | Post Interventional Procedure ---
Pre-op diagnosis: Anemia, no PIV access, ESRD on HD Post-op diagnosis: same Procedure: Left subclavian mid-line Contrast: Visi 320, 5 cc Flouroscopy: 1.5 min Radiologist: Yury Elizondo Anesthesia: local Specimens: none sent Estimated blood loss: none Complications: none Condition: stable Description/Findings: 1. 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 Placed left subclavian triple lumen, tip in the central left subclavian prior to diving into the recannalized left cardinal vein Assessment and Plan - Time spent with patient Time spent with patient: Less than 30 minutes
--- NOTE | 2017-01-23 13:00 | Interventional Radiology Rpt ---
IR cvc insert nt >5, US guide vascular access Indication: IV access. Dialysis patient with right arm AV graft. CENTRAL LINE, LEFT CHEST VENOGRAM Description: A formal timeout was performed. Maximum sterile barrier technique was used. Sonographic evaluation of the left subclavian region demonstrates patent and compressible subclavian vein. The left upper chest wall was prepped and draped in sterile fashion. 3 cc 1% lidocaine was administered subcutaneously. Under sonographic guidance, a micropuncture needle was advanced into the vein. A captured sonographic image documents the position of the needle. Needle was exchanged over a wire for a vascular dilator. However, the wire would not advance centrally and tract along the left heart border consistent with a cardinal vein recanalization. 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 A triple lumen central line was advanced until the tip was in the central most portion of the left subclavian vein just prior to diving into the cardinal vein. The catheter depth was noted to be approximately 7-8 cm. The position of the catheter was confirmed with fluoroscopic guidance and an image stored in PACS. The wire was removed. All 3 ports of the central line were aspirated and flushed with heparinized saline. The device was secured with suture, and a sterile dressing applied. Fluoroscopy: 1.5 minutes. Contrast: Visipaque 320, 5 cc. Impression: Central ready for immediate use. Routine catheter care. Total occlusion left innominate vein. Future central line access options should be limited to the right upper chest or groin regions. PROCEDURE INTERPRETED AT [facility] DEPARTMENT OF RADIOLOGY Final Report Signed by: Yury Elizondo M.D.
[2017-01-23] MEDS: ONDANSETRON 4 MG/2 ML VIAL IV PRN ×2 (13:01→21:09)
--- NOTE | 2017-01-23 13:31 | Hospitalist Progress Note ---
Assessment and Plan - Time spent with patient Time spent with patient: Less than 30 minutes (1) ESRD on dialysis Status: Chronic Assessment and plan: Routine HD on MWF. Nephrology following. Current Visit: No (2) Anemia Status: Acute Assessment and plan: Acute blood loss anemia post-hemorrhagic. 2 units packed red blood cells ordered. Repeat H&H in a.m. Current Visit: Yes Qualifiers: Other causes of anemia: acute posthemorrhagic (3) History of COPD Status: Chronic Current Visit: Yes (4) Coumadin toxicity Status: Resolved Assessment and plan: Coumadin reversed. INR less than 2. Restart INR due to history of recent valve replacement Current Visit: Yes Qualifiers: Injury intent: accidental or unintentional (5) History of mitral valve replacement with mechanical valve Status: Chronic Current Visit: Yes (6) Pulmonary hypertension Status: Chronic Current Visit: Yes Hospitalist: Subjective Interval history: Patient seen and examined. No acute events overnight. Case discussed with nursing staff. Labs reviewed. Patient with low hemoglobin of 6.3 secondary to some bleeding related to her over anticoagulation. 2 units of packed red blood cells have been ordered. The patient has a very poor IV access and is scheduled for central line placement by interventional radiology today. She looks and feels much better. Exam - Constitutional Vitals: Period Temp Pulse Resp BP Sys/Vargas Pulse Ox Last 24 Hr 97.1 F-98.7 F 81-104 13-30 118-186/64-102 90-100 Exam: Constitutional System: Mild distress. No tremulousness. Multiple areas of bruising and ecchymosis noted. Head: Normocephalic, atraumatic. Ears, Nose and Throat System: No pain or tenderness. No epistaxis or discharge Eyes System: Pupils equal, round, and reactive. Extraocular muscles intact. Neck: Supple, without adenopathy, No jugular venous distention. No thyromegaly, neck mass, or prior surgery apparent. Respiratory System: Chest clear to auscultation. Cardiovascular System: Heart with regular rate and rhythm. No murmur. GI System: Abdomen soft, nontender. Normo active bowel sounds present. Musculoskeletal System: limbs with no pedal edema. Full distal pulses. Right lower extremity intraosseous IV access noted Neurological System: No discernable sensory deficit. No aphasia Psychiatric System: Conversation is rational Results - Labs CBC & BMP: 01/23/17 04:02 01/23/17 04:02 Lab Results: I have reviewed the past 24 hour labs Quality Measures - Stroke Symptom Onset Unknown: No
[2017-01-23] MEDS: WARFARIN 4 MG TABLET PO SCH (18:00)
[2017-01-23] MEDS: PRAVASTATIN 20 MG TABLET PO SCH (21:06)
[2017-01-23] MEDS: LORazepam 2 MG/1 ML VIAL IV PRN (21:49)
[2017-01-24] MEDS: ALBUTEROL/IPRATROPIUM 3 ML NEB RESP TX SCH ×4 (00:57→21:22)
[2017-01-24] MEDS: LORazepam 2 MG/1 ML VIAL IV PRN (03:10)
[2017-01-24 03:11] LABS: Basophils % 0.1 % (0.0-0.8); Hematocrit 25.8 VOL% (35.7-47.0); Hemoglobin 8.1 GM/DL (12.0-16.0); Immature Granulocytes % 1.3 %; Lymphocytes # 0.7 10*3/uL (1.4-4.0); Lymphocytes % 8.3 % (21.3-54.2); Mean Corpuscular HGB Conc 31.4 GM/DL (32-36); Mean Corpuscular Hemoglobin 32 PG (27-34); Monocytes # 0.5 10*3/uL (0.11-0.8); Monocytes % 6.5 % (1.7-12.7); NRBC # 0.03 10*3/uL; Neutrophils # 6.7 10*3/uL (1.4-7.4); Neutrophils % 83.8 % (38.7-73.9); Platelet Count 135 T/CUMM (130-400); Red Blood Count 2.53 MC/CUMM (3.8-5.5)
[2017-01-24 03:20] LABS: INR 1.4
[2017-01-24 03:35] LABS: Albumin 3.4 G/DL (3.4-5.0); Bilirubin,Total 3.1 MG/DL (0.2-1.0); Calcium 9.2 MG/DL (8.5-10.1); Osmolality,Calculated 299.7 MOS/KG (273-304); Potassium 5.9 MMOL/L (3.5-5.1); Total Protein 6.5 G/DL (6.4-8.3)
[2017-01-24 03:49] LABS: Anisocytosis 1+; Elliptocytes Few; Hypochromasia 1+; Platelet Estimate Normal
[2017-01-24 03:50] LABS: Polychromasia Few
--- NOTE | 2017-01-24 08:15 | Nephrology Progress Note ---
Nephrology - PN: Subj Interval history: Ms. Betancourt is seen in follow-up for end-stage renal disease. She is much improved and is ready to be managed on the regular [facility] [place]. She makes a less than 500 cc of urine a day and I think she can discontinue her Adams catheter to remove it as a source of infection. Hopefully she will be getting up and out of bed today. Her chest is clear blood pressure stable and she is much improved. Hematocrit is 25 following yesterday's transfusion. Her INR is 1.4 and she is back on Coumadin which she will need to continue because of her mechanical heart valves. Exam (PN)-Nephrology - Vital Signs Vital signs: Period Temp Pulse Resp BP Sys/Vargas Pulse Ox Last 24 Hr 96.9 F-98.1 F 66-94 9-29 133-188/74-98 90-100 - Lab 01/24/17 03:00 01/24/17 03:11 Most recent lab results Calcium 9.2 MG/DL (8.5-10.1) 01/24/17 03:11 Magnesium 2.3 MG/DL (1.8-2.4) 01/23/17 04:02 Assessment and Plan (1) ESRD on dialysis Status: Chronic Assessment and plan: Dialysis today with fresh frozen plasma administration Current Visit: No
[2017-01-24] MEDS: FLUTICASONE/SALMETEROL 250-50 DISKUS 14 DOSE INH SCH ×2 (09:06→21:26)
[2017-01-24] MEDS: amLODIPine 5 MG TABLET PO SCH (09:08)
[2017-01-24] MEDS: DESITIN 4OZ/NYSTATIN 15 GRAM MIXTURE PASTE TOP SCH ×2 (09:08→21:27)
[2017-01-24] MEDS: predniSONE 20 MG TABLET PO SCH (09:08)
[2017-01-24] MEDS: CARVEDILOL 6.25 MG TABLET PO SCH ×2 (09:08→21:22)
--- NOTE | 2017-01-24 09:55 | Hospitalist Progress Note ---
Assessment and Plan (1) ESRD on dialysis Status: Chronic Assessment and plan: Routine HD on MWF. Nephrology following. Doing well. Will tx to floor. Current Visit: No (2) Anemia Status: Acute Assessment and plan: Acute blood loss anemia post-hemorrhagic. 2 units packed red blood cells transfused and repeat h/h stable. Current Visit: Yes Qualifiers: Other causes of anemia: acute posthemorrhagic (3) History of COPD Status: Chronic Current Visit: Yes (4) Coumadin toxicity Status: Resolved Assessment and plan: Coumadin reversed. INR less than 2. Restart INR due to history of recent valve replacement Current Visit: Yes Qualifiers: Injury intent: accidental or unintentional (5) History of mitral valve replacement with mechanical valve Status: Chronic Current Visit: Yes (6) Pulmonary hypertension Status: Chronic Current Visit: Yes Hospitalist: Subjective Interval history: Patient seen and examined. No acute events overnight. Case discussed with nursing staff. Labs reviewed. Patient looks and feels much better today. She will be transferred up to the floor. Scheduled dialysis for today. Acute on chronic congestive heart failure diastolic type improved with diuresis via hemodialysis. Cardiology is also seeing the patient for her history of recent valve replacement and anticoagulation has been restarted. Exam - Constitutional Vitals: Period Temp Pulse Resp BP Sys/Vargas Pulse Ox Last 24 Hr 96.9 F-98.1 F 66-93 9-29 133-188/74-98 93-100 Exam: Constitutional System: no distress. No tremulousness. Multiple areas of bruising and ecchymosis noted. Head: Normocephalic, atraumatic. Ears, Nose and Throat System: No pain or tenderness. No epistaxis or discharge Eyes System: Pupils equal, round, and reactive. Extraocular muscles intact. Neck: Supple, without adenopathy, No jugular venous distention. No thyromegaly, neck mass, or prior surgery apparent. Respiratory System: Chest clear to auscultation. Cardiovascular System: Heart with regular rate and rhythm. No murmur. GI System: Abdomen soft, nontender. Normo active bowel sounds present. Musculoskeletal System: limbs with no pedal edema. Full distal pulses. Neurological System: No discernable sensory deficit. No aphasia Psychiatric System: Conversation is rational Results - Labs CBC & BMP: 01/24/17 03:00 01/24/17 03:11 Lab Results: I have reviewed the past 24 hour labs Quality Measures - Stroke Symptom Onset Unknown: No
--- NOTE | 2017-01-24 10:46 | Physician Query Form ---
CLICK EDIT DOCUMENT TO SELECT QUERY ANSWER --> OK --> SIGN Vonnie Everett RN Clinical Software Test Engineer W) [phone] (f) [phone] [email or web address] PROVIDERS: Make your selection(s) from the choices in EACH section by typing an "x" and enter comments in the comment section. Please use your independent medical judgment in providing your response. This request does not imply that any particular answer is desired or expected. CLINICAL INDICATORS: (Providers should not edit this section) Based on documentation of "congestive heart failure", Echo showed EF of 60%. Pt. is a dialysis patient. Please provide further specificity regarding CHF. ACUITY: ( ) Acute ( ) Chronic ( X) Acute on Chronic ( ) Clinicallly unable to determine TYPE: ( ) Systolic (HFrEF - heart failure with reduced systolic function/EF) (X ) Diastolic (HFpEF - heart failure with preserved systolic function/EF) ( ) Combined Systolic/Diastolic ( ) Other, please specify: ( ) Clinically unable to determine ( ) The patient does NOT have CHF COMMENTS: Use of terms such as suspected, likely, or probable (associated with a specific diagnosis that is being evaluated, monitored, or treated as if it exists) are acceptable and can be restated in the discharge summary if not ruled out. MTDD
--- NOTE | 2017-01-24 10:48 | Physician Query Form ---
XCLICK EDIT DOCUMENT TO SELECT QUERY ANSWER --> OK --> SIGN Vonnie Everett RN Clinical Field Reporter W) [phone] (f) [phone] [email or web address] PROVIDERS: Make your selection(s) from the choices in EACH section by typing an "x" and enter comments in the comment section. Please use your independent medical judgment in providing your response. This request does not imply that any particular answer is desired or expected. CLINICAL INDICATORS: (Providers should not edit this section) Based on documentation of "She does have some respiratory distress likely related to congestive heart failure and fluid overload", O2 sat of 85%. Pt. placed on 10L O2 via non-rebreather mask. If possible, please further clarify the type and acuity of respiratory diagnosis : ACUITY: ( X) Acute ( ) Chronic ( ) Acute on Chronic TYPE: (X ) Respiratory failure with hypoxia ( ) Respiratory failure with hypercapnia ( ) Respiratory Insufficiency ( ) ARDS (Adult/Acute Respiratory Distress Syndrome) ( ) Other, please specify: ( ) Clinically unable to determine Recognized criteria for respiratory failure PH <7.35 or >7.45 PO2 <60 PCO2 >50 RR >24 O2 Sat <90% on RA or <95% on O2 Use of accessory muscles Unable to speak in full sentences Intubation is not required COMMENTS: Use of terms such as suspected, likely, or probable (associated with a specific diagnosis that is being evaluated, monitored, or treated as if it exists) are acceptable and can be restated in the discharge summary if not ruled out. MTDD
[2017-01-24] MEDS ORDERED: WARFARIN 4 MG TABLET PO ONE (14:26)
--- NOTE | 2017-01-24 14:31 | Cardiology Progress Note ---
Assessment and Plan (1) Status post mechanical aortic valve replacement Status: Acute Assessment and plan: This is a ON X valve and was implanted 12/07/2016. Will need chronic warfarin therapy. Current Visit: Yes (2) ESRD on dialysis Status: Chronic Assessment and plan: She is on dialysis for management of this. Current Visit: No (3) Anemia Status: Acute Assessment and plan: This is secondary to her bleeding issues. She is to receive blood products during dialysis again today. Current Visit: Yes Qualifiers: Other causes of anemia: acute posthemorrhagic (4) History of COPD Status: Chronic Assessment and plan: This is a chronic issue. And appears clinically stable. No change Current Visit: Yes (5) Coumadin toxicity Status: Resolved Assessment and plan: Resolved Current Visit: Yes Qualifiers: Injury intent: accidental or unintentional (6) Elevated blood pressure reading Status: Acute Assessment and plan: Blood pressure doing well at this time. Current Visit: Yes (7) History of mitral valve replacement with mechanical valve Status: Chronic Assessment and plan: This is a ON X mechanical valve implanted 12/07/2016. She will need to continue her warfarin therapy to be therapeutic. Current Visit: Yes (8) Pulmonary hypertension Status: Chronic Assessment and plan: We'll probably a chronic issue. Current Visit: Yes Cardiology - PN: Subj Interval history: Patient interviewed and examined and chart reviewed. Patient generally is progressing well. She is making progress and she feels stronger not short of breath. Her INR has decreased to 1.4. Will give extra dose of warfarin today. We'll monitor her for any evidence of bleeding.. She is for dialysis of bleeding today. Rhythm is remained sinus. No dysrhythmias. Exam (Progress Note) - Constitutional Vitals: Period Temp Pulse Resp BP Sys/Vargas Pulse Ox Last 24 Hr 97.0 F-98.1 F 66-82 9-29 133-188/74-98 93-100 Exam: General appearance: Overweight, comfortable and in no distress. Head exam: normal inspection, atraumatic Eye exam: Pupils are equal and reactive. EOMI. There is no trauma. Ear exam: Normal auditory acuity to conversation. Neck exam: normal inspection no JVD. No carotid bruit. Trachea is in midline. Respiratory exam: Clear anteriorly no gross wheezing. Cardiovascular exam: regular rate and rhythm, systolic murmur over the precordium and toward the apex but has mechanical aortic valve sounds. Chest wall/torso: Has midline sternotomy scar from previous CABG/AVR Peripheral Pulses: 1+ GI/Abdominal exam: Diminished bowel sounds, soft and nontender. Musculoskeletal/Extremities exam: She is trivial edema this is markedly improved. AV fistula areas noted in the right side are bandaged. Neurological exam: alert, oriented X3. There is no gross neurologic deficits. Psychiatric exam: Cognitive function is grossly intact. Skin exam: Warm and dry Result/EKG - Labs CBC & BMP: 01/24/17 03:00 01/24/17 03:11 Lab Results: I have reviewed the past 24 hour labs (INR is 1.4.) Labs: Laboratory Results - last 24 hr 01/22/17 01/24/17 01/24/17 03:30 03:00 03:00 WBC 8.0 RBC 2.53 L D Hgb 8.1 L D Hct 25.8 L MCV 102.0 MCH 32 MCHC 31.4 L RDW 25.0 H Plt Count 135 MPV 11.0 Neut % (Auto) 83.8 H Lymph % (Auto) 8.3 L Hay[place] % (Auto) 6.5 Eos % (Auto) 0.0 Baso % (Auto) 0.1 Neut # (Auto) 6.7 Lymph # (Auto) 0.7 L [place] # (Auto) 0.5 Eos # (Auto) 0.0 Baso # (Auto) 0.0 Immature Gran % 1.3 Nucleated RBC % 0.4 Immature Gran # 0.10 Nucleated RBCs # 0.03 Platelet Estimate Normal Polychromasia Few Hypochromasia 1+ Anisocytosis 1+ Elliptocytes Few INR 1.4 PT Patient/Control Mix 15.0 Sodium Potassium Chloride Carbon Dioxide Anion Gap BUN Creatinine GFR Calculation BUN/Creatinine Ratio Glucose Calculated Osmolality Calcium Total Bilirubin AST ALT Alkaline Phosphatase Total Protein Albumin Globulin Albumin/Globulin Ratio Blood Type A POSITIVE Antibody Screen Negative Crossmatch See Detail 01/24/17 03:11 WBC RBC Hgb Hct MCV MCH MCHC RDW Plt Count MPV Neut % (Auto) Lymph % (Auto) Haywood % (Auto) Eos % (Auto) Baso % (Auto) Neut # (Auto) Lymph # (Auto) [place] # (Auto) Eos # (Auto) Baso # (Auto) Immature Gran % Nucleated RBC % Immature Gran # Nucleated RBCs # Platelet Estimate Polychromasia Hypochromasia Anisocytosis Elliptocytes INR PT Patient/Control Mix Sodium 138 Potassium 5.9 H Chloride 99 Carbon Dioxide 28 Anion Gap 16.9 H BUN 73 H D Creatinine 6.80 H GFR Calculation 6 BUN/Creatinine Ratio 10.00 Glucose 153 H Calculated Osmolality 299.7 Calcium 9.2 Total Bilirubin 3.10 H AST 39 H ALT 73 H Alkaline Phosphatase 107 Total Protein 6.5 Albumin 3.4 Globulin 3.1 Albumin/Globulin Ratio 1.0 L Blood Type Antibody Screen Crossmatch - Impressions Impressions: Telemetry with normal sinus rhythm without dysrhythmias. Quality Measures - Stroke Symptom Onset Unknown: No
[2017-01-24] MEDS: WARFARIN 4 MG TABLET PO SCH (17:17)
[2017-01-24] MEDS: CALCIUM ACETATE 667 MG CAPSULE PO SCH ×2 (17:17→17:20)
[2017-01-24] MEDS: CINACALCET 30 MG TABLET PO SCH (17:17)
[2017-01-24] MEDS ORDERED: BUDESONIDE/FORMOTEROL 160-4.5 INHALER 6 GM INH SCH (21:00)
[2017-01-24] MEDS: levETIRAcetam 500 MG TABLET PO SCH (21:20)
[2017-01-24] MEDS: rOPINIRole 0.25 MG TABLET PO SCH (21:22)
[2017-01-24] MEDS: PANTOPRAZOLE 40 MG TABLET PO SCH (21:23)
[2017-01-24] MEDS: PRAVASTATIN 20 MG TABLET PO SCH ×2 (21:24→21:25)
[2017-01-24] MEDS: MIRTAZAPINE 15 MG TABLET PO PRN (23:26)
[2017-01-25] MEDS: ALBUTEROL/IPRATROPIUM 3 ML NEB RESP TX SCH ×4 (01:02→19:42)
[2017-01-25] MEDS: ONDANSETRON 4 MG/2 ML VIAL IV PRN (02:11)
[2017-01-25] MEDS: LEVOTHYROXINE 100 MCG TABLET PO SCH (06:28)
[2017-01-25 08:06] LABS: INR 1.4; PT Patient Result 15.4 SECS
[2017-01-25 08:08] LABS: Albumin 3.3 G/DL (3.4-5.0); Bilirubin,Total 3.1 MG/DL (0.2-1.0); Calcium 9.3 MG/DL (8.5-10.1); Osmolality,Calculated 295.4 MOS/KG (273-304); Potassium 4.1 MMOL/L (3.5-5.1); Total Protein 6.4 G/DL (6.4-8.3)
[2017-01-25] MEDS: predniSONE 20 MG TABLET PO SCH (08:09)
[2017-01-25] MEDS: CALCIUM ACETATE 667 MG CAPSULE PO SCH ×3 (08:09→16:35)
[2017-01-25] MEDS: levETIRAcetam 500 MG TABLET PO SCH ×2 (08:09→20:33)
[2017-01-25] MEDS: CARVEDILOL 6.25 MG TABLET PO SCH ×2 (08:09→20:34)
[2017-01-25] MEDS: sitaGLIPtin 25 MG TABLET PO SCH (08:09)
[2017-01-25] MEDS: FLUTICASONE/SALMETEROL 250-50 DISKUS 14 DOSE INH SCH ×2 (08:09→20:34)
[2017-01-25] MEDS: amLODIPine 5 MG TABLET PO SCH (08:09)
[2017-01-25] MEDS: DESITIN 4OZ/NYSTATIN 15 GRAM MIXTURE PASTE TOP SCH ×2 (08:09→20:36)
[2017-01-25] MEDS: PANTOPRAZOLE 40 MG TABLET PO SCH ×2 (08:09→20:34)
--- NOTE | 2017-01-25 08:12 | Nephrology Progress Note ---
Nephrology - PN: Subj Interval history: Ms. Betancourt is seen in follow-up of her end-stage renal disease. She feels well and is doing well. Her INR yesterday was 1.4. She is on 4 mg of Coumadin daily. She tells me at home health was checking her INR. I think that we will still work but we asked her to make certain that the day after an INR is drawn that she is in contact with someone to find out the results and any changes that might need to be made. Her chest is clear she is eating well. Once her INR is better she should be able to go home. Will continue to support with dialysis. Exam (PN)-Nephrology - Vital Signs Vital signs: Period Temp Pulse Resp BP Sys/Vargas Pulse Ox Last 24 Hr 97.4 F-98.8 F 78-86 15-20 110-162/52-81 93-99 - Lab 01/24/17 03:00 01/24/17 03:11 Most recent lab results Calcium 9.2 MG/DL (8.5-10.1) 01/24/17 03:11 Magnesium 2.3 MG/DL (1.8-2.4) 01/23/17 04:02 Assessment and Plan (1) ESRD on dialysis Status: Chronic Assessment and plan: Dialysis today with fresh frozen plasma administration Current Visit: No
[2017-01-25 08:23] LABS: Calcium 9.4 MG/DL (8.5-10.1); Magnesium 2.4 MG/DL (1.8-2.4); Osmolality,Calculated 296.4 MOS/KG (273-304)
[2017-01-25 08:36] LABS: Basophils % 0.2 % (0.0-0.8); Eosinophils # 0.1 10*3/uL (0.0-0.87); Eosinophils % 1.1 % (0.00-10.9); Hematocrit 28.3 VOL% (35.7-47.0); Hemoglobin 8.7 GM/DL (12.0-16.0); Immature Granulocytes % 1.1 %; Immature Granulocytes Absolute 0.09 #; Lymphocytes # 1.5 10*3/uL (1.4-4.0); Lymphocytes % 18.2 % (21.3-54.2); Mean Corpuscular HGB Conc 30.7 GM/DL (32-36); Mean Corpuscular Hemoglobin 33 PG (27-34); Mean Corpuscular Volume 106.4 FL (87-102); Mean Platelet Volume 11.1 FL (9.6-12.0); Monocytes # 0.7 10*3/uL (0.11-0.8); Monocytes % 8.4 % (1.7-12.7); NRBC # 0.02 10*3/uL; Neutrophils # 5.7 10*3/uL (1.4-7.4); Platelet Count 191 T/CUMM (130-400); Red Blood Count 2.66 MC/CUMM (3.8-5.5); Red Cell Distribution Width 25.1 % (9.3-17.3); White Blood Count 8.1 T/CUMM (4-12)
[2017-01-25 08:56] LABS: Macrocytosis 1+
[2017-01-25 08:57] LABS: Platelet Estimate Adequate
[2017-01-25] MEDS ORDERED: WARFARIN 5 MG TABLET PO ONE (16:24)
[2017-01-25] MEDS: CINACALCET 30 MG TABLET PO SCH (16:34)
--- NOTE | 2017-01-25 16:42 | Cardiology Progress Note ---
Angelo Crow Vanessa, RN, am scribing for, and in the presence of, Yury Mccarthy MD 16:39. Assessment and Plan - Time spent with patient Time spent with patient: Greater than 30 minutes (1) Status post mechanical aortic valve replacement Status: Acute Assessment and plan: We will continue the patient's warfarin and titrate her INR to an appropriate level. Clinically this is functioning appropriately. Current Visit: Yes (2) Anemia Status: Acute Assessment and plan: This is probably related to her bleeding issues. Her H&H is better today. Current Visit: Yes Qualifiers: Other causes of anemia: acute posthemorrhagic (3) Elevated blood pressure reading Status: Acute Assessment and plan: Overall her blood pressures are stable at this time. Current Visit: Yes (4) History of COPD Status: Chronic Assessment and plan: Clinically stable at this time. Current Visit: Yes (5) History of mitral valve replacement with mechanical valve Status: Chronic Assessment and plan: This was recently implanted and course need her INR 2.5 or greater. Current Visit: Yes (6) Pulmonary hypertension Status: Chronic Assessment and plan: Severely elevated pulmonary hypertension. Hopefully this will improve with time as she gets away from her initial surgery. Current Visit: Yes (7) Coumadin toxicity Status: Resolved Current Visit: Yes Qualifiers: Injury intent: accidental or unintentional (8) ESRD on dialysis Status: Chronic Assessment and plan: This continues without issues. Current Visit: No Cardiology - PN: Subj Interval history: PRIMARY WIND INSTRUMENT REPAIRER: DR. CIPRIANO MCCARTHY (NEW) SUMMARY: Ms. Betancourt is a 61 year old female routinely followed by [facility] cardiology. Risk factors significant for hypertension, diabetes, known CAD, and tobaccoism. Past medical history includes end-stage renal disease with dialysis, hypothyroidism, paroxysmal atrial fibrillation, diastolic CHF, LILY, and COPD. It is also noted in outlying facility records patient known to have hypercoagulable state and chronic pulmonary embolism requiring chronic Coumadin therapy. Patient has a recent significant cardiac history including hospitalization at [facility] in [facility] in November 2016 due to progressive worsening of exertional dyspnea and occasional PND. She had previously been followed for aortic stenosis and mitral stenosis. She was treated for acute on chronic diastolic congestive heart failure. During the course of her admission, she underwent an echocardiogram which revealed a moderate aortic stenosis with mean gradient of 32 mmHg and moderate aortic insufficiency, severe mitral stenosis with mean gradient of 24 mmHg, PA pressure 90 mmHg, and LV ejection fraction 70-75%. Left heart catheterization showed normal left coronary arteries with an 80% stenosis of the RCA. On December 07, 2016, patient underwent aortic valve replacement using 21 mm mechanical prosthesis without and mitral valve replacement using mechanical prosthesis. She coronary artery bypass grafting 1, receiving a saphenous vein graft to the posterior descending artery. She had no uncomplicated postoperative course and was discharged home on December 15, 2016. Patient was [facility] ICU per hospital medicine on 01/22 with complaints of shortness of breath that had progressed over the past few days and also had some bleeding from various sites including AV fistula. Initial INR was 18.8 with H&H 7.1 and 23.3. Patient received 4 units of FFP with improvement of INR to 2.1. H&H 01/23 noted to be 6.3 and 21.6, she was transfused with packed red blood cells, and H&H has been stable. After improvement of INR, anticoagulation has been resumed. During admission, she has also been followed by nephrology for recommendations. Cardiology was consulted for evaluation and management in light of recent cardiac surgical history. While in the ICU, patient was evaluated by Dr. Cipriano Mccarthy. Patient transferred from ICU to [facility] floor 01/24. JANUARY 25, 2017: Ms. Betancourt remains hemodynamically stable since transfer from ICU yesterday afternoon. She is awake and alert watching TV. She has just finished lunch and reports a good appetite. Reports some right sided chest wall pain, reproducible during exam, and at area of recent sternotomy. Denies acute dyspnea. States she did "not have a very good night last night" and in speaking with her, she says she was unable to get uncomfortable due to "restless legs and just being wound up from the last 2 or 3 days." Biggest complaint today is of feeling overall generally weak and easily fatigued. Afebrile, BP averaging 120s/60s. She has been in a sinus rhythm during admission without overt ectopy, occurence of AF, or other dysrhythmia. Electrolytes are within normal range today. H/H stable. INR is 1.4 today (also 1.4 yesterday). She did receive an additional Coumadin dose of 4 mg PO yesterday afternoon in addition to routine dosage of 4 mg by mouth daily. I have personally interviewed and examined the patient reviewed the chart and discuss this with Jolynn Stephens RN. The patient is progressed well since admission and is on the floor progressing. Her INR was still 1.4 which is concerning and we have actually increased her warfarin for today. We will continue to monitor this and if her INR is not moving out tomorrow I am going to add some Lovenox until we have her INR at least around 1.8-2. I am more concerned about her mitral prosthetic valve in her aortic. I discussed this with the patient. Also discussed with her that we will need to educate her on dietary changes for taking warfarin. We will ask dietary and pharmacy to provide her with some education. I have discussed this with the nursing staff on the floor. She is up and about the room. Her appetite is fairly good. Exam (Progress Note) - Constitutional Vitals: Period Temp Pulse Resp BP Sys/Vargas Pulse Ox Last 24 Hr 97.4 F-98.8 F 78-86 15-20 110-162/52-81 93-99 Exam: General appearance: Overweight, comfortable and in no distress. Head exam: normal inspection, atraumatic Eye exam: Pupils are equal and reactive. EOMI. There is no trauma. Ear exam: Normal external ear exam, decreased hearing right ear. Neck exam: normal inspection no JVD. No carotid bruit. Trachea is in midline. Respiratory exam: Clear anteriorly no gross wheezing. Cardiovascular exam: regular rate and rhythm, systolic murmur over the precordium and toward the apex but has mechanical aortic/mitral valve sounds. Chest wall/torso: Has midline sternotomy scar from previous CABG/AVR , intact, appears to be healing well. Peripheral Pulses: 1+ GI/Abdominal exam: Diminished bowel sounds, soft and nontender. Musculoskeletal/Extremities exam: She is trivial edema this is markedly improved. AV fistula areas noted in the right side are bandaged. Ecchymotic bruising to bilateral upper ext's. Neurological exam: alert, oriented X3. There is no gross neurologic deficits. Psychiatric exam: Cognitive function is grossly intact. No essential or resting tremor. Normal mood and affect, does not appear anxious or depressed. Skin exam: Warm and dry. No cyanosis, diaphoresis, she does have some ecchymotic areas that are resolving. Result/EKG - Labs CBC & BMP: 01/25/17 08:15 01/25/17 06:52 Lab Results: I have reviewed the past 24 hour labs Labs: Laboratory Results - last 24 hr 01/24/17 01/25/17 01/25/17 19:13 06:52 06:52 WBC RBC Hgb Hct MCV MCH MCHC RDW Plt Count MPV Neut % (Auto) Lymph % (Auto) [place] % (Auto) Eos % (Auto) Baso % (Auto) Neut # (Auto) Lymph # (Auto) [place] # (Auto) Eos # (Auto) Baso # (Auto) Immature Gran % Nucleated RBC % Immature Gran # Nucleated RBCs # Platelet Estimate Macrocytosis INR PT Patient/Control Mix Sodium 140 140 Potassium 4.1 4.0 Chloride 99 100 Carbon Dioxide 31 30 Anion Gap 14.1 14.0 BUN 55 H 56 H Creatinine 4.50 H 4.60 H GFR Calculation 10 10 BUN/Creatinine Ratio 12.00 12.00 Glucose 128 H 132 H POC Glucose 269 H Calculated Osmolality 295.4 296.4 Calcium 9.3 9.4 Magnesium 2.4 Total Bilirubin 3.10 H AST 34 ALT 58 H Alkaline Phosphatase 102 Total Protein 6.4 Albumin 3.3 L Globulin 3.1 Albumin/Globulin Ratio 1.0 L 01/25/17 01/25/17 01/25/17 06:54 07:40 08:15 WBC 8.1 RBC 2.66 L Hgb 8.7 L Hct 28.3 L MCV 106.4 H MCH 33 MCHC 30.7 L RDW 25.1 H Plt Count 191 D MPV 11.1 Neut % (Auto) 71.0 Lymph % (Auto) 18.2 L [place] % (Auto) 8.4 Eos % (Auto) 1.1 Baso % (Auto) 0.2 Neut # (Auto) 5.7 Lymph # (Auto) 1.5 [place] # (Auto) 0.7 Eos # (Auto) 0.1 Baso # (Auto) 0.0 Immature Gran % 1.1 Nucleated RBC % 0.2 Immature Gran # 0.09 Nucleated RBCs # 0.02 Platelet Estimate Adequate Macrocytosis 1+ INR 1.4 PT Patient/Control Mix 15.4 Sodium Potassium Chloride Carbon Dioxide Anion Gap BUN Creatinine GFR Calculation BUN/Creatinine Ratio Glucose POC Glucose 143 H Calculated Osmolality Calcium Magnesium Total Bilirubin AST ALT Alkaline Phosphatase Total Protein Albumin Globulin Albumin/Globulin Ratio - EKG EKG results: interpreted by me, no acute changes EKG shows: sinus rhythm Quality Measures - Stroke Symptom Onset Unknown: No I, Yury Mccarthy MD, personally performed the services described in this documentation, ascribed by Jolynn Stephens RN in my presence, and it is both accurate and complete [id number] .
--- NOTE | 2017-01-25 19:20 | Hospitalist Progress Note ---
Assessment and Plan (1) ESRD on dialysis Status: Chronic Assessment and plan: Routine HD on MWF. Nephrology following. Doing well. Discharge home when INR therapeutic. Current Visit: No (2) Anemia Status: Acute Assessment and plan: Acute blood loss anemia post-hemorrhagic. 2 units packed red blood cells transfused and repeat h/h stable. Current Visit: Yes Qualifiers: Other causes of anemia: acute posthemorrhagic (3) History of COPD Status: Chronic Current Visit: Yes (4) Coumadin toxicity Status: Resolved Assessment and plan: Coumadin reversed. INR less than 2. Restart INR due to history of recent valve replacement. INR remains 1.4. 10 mg ordered today. Repeat in a.m. Current Visit: Yes Qualifiers: Injury intent: accidental or unintentional (5) History of mitral valve replacement with mechanical valve Status: Chronic Current Visit: Yes (6) Pulmonary hypertension Status: Chronic Current Visit: Yes Hospitalist: Subjective Interval history: Patient seen and examined. No acute events overnight. Case discussed with nursing staff. Labs reviewed. Patient looks and feels well. Awaiting therapeutic INR. Coumadin 10 mg given today. Repeat INR in a.m. Exam - Constitutional Vitals: Period Temp Pulse Resp BP Sys/Vargas Pulse Ox Last 24 Hr 97.0 F-98.6 F 71-86 16-18 110-140/52-72 94-100 Exam: Constitutional System: no distress. No tremulousness. Multiple areas of bruising and ecchymosis noted. Head: Normocephalic, atraumatic. Ears, Nose and Throat System: No pain or tenderness. No epistaxis or discharge Eyes System: Pupils equal, round, and reactive. Extraocular muscles intact. Neck: Supple, without adenopathy, No jugular venous distention. Respiratory System: Chest clear to auscultation. Cardiovascular System: Heart with regular rate and rhythm. No murmur. GI System: Abdomen soft, nontender. Normo active bowel sounds present. Musculoskeletal System: limbs with no pedal edema. Full distal pulses. Neurological System: No discernable sensory deficit. No aphasia Psychiatric System: Conversation is rational Results - Labs CBC & BMP: 01/25/17 08:15 01/25/17 06:52 Lab Results: I have reviewed the past 24 hour labs Quality Measures - Stroke Symptom Onset Unknown: No Specialty Discharge - Follow Up or Referrals
[2017-01-25] MEDS: rOPINIRole 0.25 MG TABLET PO SCH (20:33)
[2017-01-25] MEDS: PRAVASTATIN 20 MG TABLET PO SCH ×2 (20:34→20:37)
[2017-01-25] MEDS: MIRTAZAPINE 15 MG TABLET PO PRN (20:35)
[2017-01-25] MEDS: PROMETHAZINE 25 MG TABLET PO PRN (23:37)
[2017-01-26] MEDS: ALBUTEROL/IPRATROPIUM 3 ML NEB RESP TX SCH ×4 (01:45→19:57)
[2017-01-26] MEDS: LEVOTHYROXINE 100 MCG TABLET PO SCH (06:34)
[2017-01-26 07:34] LABS: INR 1.6; PT Patient Result 17.3 SECS
[2017-01-26] MEDS: CARVEDILOL 6.25 MG TABLET PO SCH ×2 (08:04→20:08)
[2017-01-26] MEDS: levETIRAcetam 500 MG TABLET PO SCH ×2 (08:04→20:08)
[2017-01-26] MEDS: amLODIPine 5 MG TABLET PO SCH (08:04)
[2017-01-26] MEDS: sitaGLIPtin 25 MG TABLET PO SCH (08:04)
[2017-01-26] MEDS: predniSONE 20 MG TABLET PO SCH (08:04)
[2017-01-26] MEDS: CALCIUM ACETATE 667 MG CAPSULE PO SCH ×3 (08:04→17:15)
[2017-01-26] MEDS: PANTOPRAZOLE 40 MG TABLET PO SCH ×2 (08:04→20:25)
[2017-01-26] MEDS: FLUTICASONE/SALMETEROL 250-50 DISKUS 14 DOSE INH SCH ×2 (08:05→20:08)
[2017-01-26 08:14] LABS: Calcium 9.2 MG/DL (8.5-10.1); Magnesium 2.5 MG/DL (1.8-2.4); Osmolality,Calculated 303.7 MOS/KG (273-304); Potassium 4.6 MMOL/L (3.5-5.1)
[2017-01-26] MEDS: DESITIN 4OZ/NYSTATIN 15 GRAM MIXTURE PASTE TOP SCH ×2 (08:32→20:09)
--- NOTE | 2017-01-26 09:15 | Dialysis Note ---
Dialysis Note - Dialysis Note Ms. Betancourt is seen during hemodialysis. She is tolerating dialysis well using her right upper arm axis. Her INR is slowly approaching therapeutic at 1.6 today. We have counseled her with the absolute importance of taking Coumadin and monitoring its effect and altering doses of Coumadin when appropriate. She is understanding that well. Her dialysis is going well and will continue to support with hemodialysis.
--- NOTE | 2017-01-26 16:20 | Hospitalist Progress Note ---
Assessment and Plan (1) ESRD on dialysis Status: Chronic Assessment and plan: continue with HD Nephrology is following Current Visit: No (2) Coumadin toxicity Status: Resolved Assessment and plan: improved. pharmacy now dosing Current Visit: Yes (3) History of mitral valve replacement with mechanical valve Status: Chronic Assessment and plan: stable, Cardiology is following Current Visit: Yes (4) History of COPD Status: Chronic Assessment and plan: stable Current Visit: Yes (5) Anemia Status: Acute Assessment and plan: Acute blood loss anemia due to bleeding from dialysis shunt S/p transfusion. Plan Follow CBC Current Visit: Yes Qualifiers: Qualified Code(s): D62 - Acute posthemorrhagic anemia (6) Pulmonary hypertension Status: Chronic Assessment and plan: cardiology is following Current Visit: Yes Hospitalist: Subjective Interval history: Patient went for dialysis today.She feels better and her INR has improved. Exam - Constitutional Vitals: Period Temp Pulse Resp BP Sys/Vargas Pulse Ox Last 24 Hr 97.3 F-97.7 F 73-84 16-20 125-149/56-79 94-100 General appearance: no acute distress - Head Head exam: Present: normal inspection - Respiratory Respiratory exam: Present: clear to auscultation bilaterally - Cardiovascular Cardiovascular exam: Present: other (mechanical click) - GI/Abdominal GI/Abdominal exam: Present: normal bowel sounds - Extremities Exam Extremities exam: Present: normal inspection - Neurological Exam Neurological exam: Present: alert, oriented X3 Results - Labs CBC & BMP: 01/25/17 08:15 01/26/17 06:21 Lab Results: I have reviewed the past 24 hour labs Quality Measures - Stroke Symptom Onset Unknown: No Specialty Discharge - Follow Up or Referrals
[2017-01-26] MEDS: WARFARIN 4 MG TABLET PO SCH (17:00)
[2017-01-26] MEDS: CINACALCET 30 MG TABLET PO SCH (17:16)
--- NOTE | 2017-01-26 17:37 | Cardiology Progress Note ---
Angelo Crow Vanessa, RN, am scribing for, and in the presence of, Yury Mccarthy MD 17:36. Assessment and Plan - Time spent with patient Time spent with patient: Greater than 30 minutes (1) Status post mechanical aortic valve replacement Status: Acute Assessment and plan: We are continuing to monitor INR and titrating Coumadin as indicated for therapeutic level. Clinically, aortic valve appears to be functioning appropriately. Current Visit: Yes (2) Anemia Status: Acute Assessment and plan: This has been stable and with most recent hematocrit of 28.3% on 01/25. Continue to monitor closely. Current Visit: Yes Qualifiers: Other causes of anemia: acute posthemorrhagic (3) Elevated blood pressure reading Status: Acute Assessment and plan: Blood pressures have been overall stable and we will continue current plan of care. Current Visit: Yes (4) History of COPD Status: Chronic Assessment and plan: Clinically, this appears to be stable. Current Visit: Yes (5) History of mitral valve replacement with mechanical valve Status: Chronic Assessment and plan: Recent MVR in November 2016. We will continue to monitor INR as it will of course need to be 2.5 or greater. Current Visit: Yes (6) Pulmonary hypertension Status: Chronic Assessment and plan: Pulmonary hypertension is severely elevated at this time. Current Visit: Yes (7) Coumadin toxicity Status: Resolved Current Visit: Yes Qualifiers: Injury intent: accidental or unintentional (8) ESRD on dialysis Status: Chronic Current Visit: No Cardiology - PN: Subj Interval history: PRIMARY FOOD PRODUCTION WORKER: DR. CIPRIANO MCCARTHY (NEW) SUMMARY: Ms. Betancourt is a 61 year old female routinely followed by [facility] cardiology. Risk factors significant for hypertension, diabetes, known CAD, and tobaccoism. Past medical history includes end-stage renal disease with dialysis, hypothyroidism, paroxysmal atrial fibrillation, diastolic CHF, LILY, and COPD. It is also noted in outlying facility records patient known to have hypercoagulable state and chronic pulmonary embolism requiring chronic Coumadin therapy. Patient has a recent significant cardiac history including hospitalization at [facility] in [facility] in November 2016 due to progressive worsening of exertional dyspnea and occasional PND. She had previously been followed for aortic stenosis and mitral stenosis. She was treated for acute on chronic diastolic congestive heart failure. During the course of her admission, she underwent an echocardiogram which revealed a moderate aortic stenosis with mean gradient of 32 mmHg and moderate aortic insufficiency, severe mitral stenosis with mean gradient of 24 mmHg, PA pressure 90 mmHg, and LV ejection fraction 70-75%. Left heart catheterization showed normal left coronary arteries with an 80% stenosis of the RCA. On December 07, 2016, patient underwent aortic valve replacement using 21 mm mechanical prosthesis without and mitral valve replacement using mechanical prosthesis. She coronary artery bypass grafting 1, receiving a saphenous vein graft to the posterior descending artery. She had a noncomplicated postoperative course and was discharged home on December 15, 2016. Patient was transferred from [facility] to [facility] ICU per hospital medicine on 01/22 with complaints of shortness of breath that had progressed over the past few days and also had some bleeding from various sites including AV fistula. Initial INR was 18.8 with H&H 7.1 and 23.3. Patient received 4 units of FFP with improvement of INR to 2.1. H&H 01/23 noted to be 6.3 and 21.6, she was transfused with packed red blood cells, and H&H has been stable. After improvement of INR, anticoagulation has been resumed. During admission, she has also been followed by nephrology for recommendations. Cardiology was consulted for evaluation and management in light of recent cardiac surgical history. While in the ICU, patient was evaluated by Dr. Cipriano Mccarthy. Patient transferred from ICU to [facility] floor 01/24. JANUARY 26, 2017: Ms. Betancourt is awake and alert this afternoon, and she has just recently returned from routine hemodialysis. She is sitting up on the side of the bed and appears to be in no acute distress at this time. Reports she did not sleep "at all" overnight but then slept most of the time during dialysis. No chest pain, shortness of breath. She is anxious to be discharged soon, and today she is concerned over some social issues today i.e. eviction from her apartment and she says she has been hospitalized and has not been able to pay for it. She does tell me that she has family members that are helping her with this situation. INR increased today from 1.4 to 1.6 after receiving Coumadin 10 mg dose 1 yesterday evening in addition to routine dosage of 4 mg by mouth daily. Afebrile, vitals are stable. The patient personally interviewed and examined and chart reviewed and I discussed this case with Jolynn Stephens RN. I agree with the above assessment and evaluation. Indeed the patient did not sleep well she has a lot of personal issues at this time. Cardiac standpoint she is doing quite well though. Her INRs coming up. We need to be cautious about going up to quit because of her previous recent episode of Coumadin toxicity. Once her INR is 2.0 she should be able to go home and will need close monitoring of her warfarin level. Exam (Progress Note) - Constitutional Vitals: Period Temp Pulse Resp BP Sys/Vargas Pulse Ox Last 24 Hr 97.3 F-97.9 F 71-84 16-20 116-149/56-79 94-100 Exam: General appearance: Overweight, comfortable and in no distress. Head exam: normal inspection, atraumatic Eye exam: Pupils are equal and reactive. EOMI. There is no trauma. Ear exam: Normal external ear exam, decreased hearing right ear. Neck exam: normal inspection no JVD. No carotid bruit. Trachea is in midline. Respiratory exam: Clear anteriorly no gross wheezing. No rhonchi, rales, stridor. Cardiovascular exam: regular rate and rhythm, systolic murmur over the precordium and toward the apex but has mechanical aortic/mitral valve sounds. Chest wall/torso: Has midline sternotomy scar from previous CABG/AVR , intact, appears to be healing well. left Peripheral Pulses: 1+ GI/Abdominal exam: Diminished bowel sounds, soft and nontender. Musculoskeletal/Extremities exam: She has trivial pretibial edema that is markedly improved. AV fistula areas noted in the right side are bandaged. Ecchymotic bruising to bilateral upper ext's. Neurological exam: alert, oriented X3. There is no gross neurologic deficits. Psychiatric exam: Cognitive function is grossly intact. No essential or resting tremor. Normal mood and affect, does not appear anxious or depressed. Skin exam: Warm and dry. No cyanosis, diaphoresis, she does have some ecchymotic areas which are continuing to improve. Result/EKG - Labs CBC & BMP: 01/25/17 08:15 01/26/17 06:21 Lab Results: I have reviewed the past 24 hour labs Labs: Laboratory Results - last 24 hr 01/26/17 01/26/17 01/26/17 06:21 06:41 11:30 INR 1.6 PT Patient/Control Mix 17.3 Sodium 138 Potassium 4.6 Chloride 98 Carbon Dioxide 30 Anion Gap 14.6 BUN 88 H D Creatinine 6.20 H GFR Calculation 7 BUN/Creatinine Ratio 14.00 Glucose 132 H POC Glucose 144 H Calculated Osmolality 303.7 Calcium 9.2 Magnesium 2.5 H - EKG EKG results: interpreted by me, no acute changes Quality Measures - Stroke Symptom Onset Unknown: No Specialty Discharge - Follow Up or Referrals I, Yury Mccarthy MD, personally performed the services described in this documentation, ascribed by Jolynn Stephens RN in my presence, and it is both accurate and complete [id number] .
[2017-01-26] MEDS: PRAVASTATIN 20 MG TABLET PO SCH (20:08)
[2017-01-26] MEDS: MIRTAZAPINE 15 MG TABLET PO PRN (20:08)
[2017-01-26] MEDS: rOPINIRole 0.25 MG TABLET PO SCH (20:10)
[2017-01-27] MEDS: ALBUTEROL/IPRATROPIUM 3 ML NEB RESP TX SCH ×4 (01:26→19:24)
[2017-01-27] MEDS: PROMETHAZINE 25 MG TABLET PO PRN ×2 (04:18→22:04)
[2017-01-27] MEDS: clonazePAM 0.5 MG TABLET PO PRN ×2 (05:12→10:26)
[2017-01-27] MEDS: LEVOTHYROXINE 100 MCG TABLET PO SCH (06:01)
[2017-01-27 07:09] LABS: Basophils % 0.3 % (0.0-0.8); Eosinophils # 0.1 10*3/uL (0.0-0.87); Eosinophils % 1.2 % (0.00-10.9); Hemoglobin 8.5 GM/DL (12.0-16.0); Immature Granulocytes % 1.2 %; Immature Granulocytes Absolute 0.09 #; Lymphocytes # 1.4 10*3/uL (1.4-4.0); Lymphocytes % 19.1 % (21.3-54.2); Mean Corpuscular HGB Conc 31.5 GM/DL (32-36); Mean Corpuscular Hemoglobin 33 PG (27-34); Mean Corpuscular Volume 104.7 FL (87-102); Mean Platelet Volume 10.9 FL (9.6-12.0); Monocytes # 0.7 10*3/uL (0.11-0.8); Monocytes % 9.6 % (1.7-12.7); Neutrophils % 68.6 % (38.7-73.9); Platelet Count 189 T/CUMM (130-400); Red Blood Count 2.58 MC/CUMM (3.8-5.5); White Blood Count 7.2 T/CUMM (4-12)
[2017-01-27 07:49] LABS: Calcium 8.5 MG/DL (8.5-10.1); Magnesium 2.4 MG/DL (1.8-2.4); Osmolality,Calculated 287.8 MOS/KG (273-304); Potassium 4.9 MMOL/L (3.5-5.1)
[2017-01-27 07:50] LABS: Acanthocytes Few; Hypochromasia 1+; Macrocytosis 1+
[2017-01-27 09:04] LABS: INR 1.7; PT Patient Result 18.8 SECS
[2017-01-27] MEDS: sitaGLIPtin 25 MG TABLET PO SCH (10:27)
[2017-01-27] MEDS: CALCIUM ACETATE 667 MG CAPSULE PO SCH ×3 (10:27→17:04)
[2017-01-27] MEDS: CARVEDILOL 6.25 MG TABLET PO SCH ×2 (10:27→20:41)
[2017-01-27] MEDS: levETIRAcetam 500 MG TABLET PO SCH ×2 (10:27→20:41)
[2017-01-27] MEDS: PANTOPRAZOLE 40 MG TABLET PO SCH ×2 (10:27→20:46)
[2017-01-27] MEDS: amLODIPine 5 MG TABLET PO SCH (10:27)
[2017-01-27] MEDS: predniSONE 20 MG TABLET PO SCH (10:27)
[2017-01-27] MEDS: DESITIN 4OZ/NYSTATIN 15 GRAM MIXTURE PASTE TOP SCH ×2 (10:29→20:45)
[2017-01-27] MEDS: FLUTICASONE/SALMETEROL 250-50 DISKUS 14 DOSE INH SCH ×2 (10:30→20:44)
[2017-01-27] MEDS ORDERED: WARFARIN 10 MG TABLET PO ONE (11:28)
--- NOTE | 2017-01-27 11:34 | Cardiology Progress Note ---
Assessment and Plan (1) History of mitral valve replacement with mechanical valve Status: Chronic Assessment and plan: Recent MVR in November 2016. Continue to get her INR out where it is being and placing her on Lovenox. Current Visit: Yes (2) Status post mechanical aortic valve replacement Status: Acute Assessment and plan: Continuing her anticoagulation and trying her INR up. This is stable. Current Visit: Yes (3) Anemia Status: Acute Assessment and plan: H&H is stable. Current Visit: Yes Qualifiers: Other causes of anemia: acute posthemorrhagic (4) Elevated blood pressure reading Status: Resolved Assessment and plan: Blood pressures have been overall stable and we will continue current plan of care. Current Visit: Yes (5) History of COPD Status: Chronic Assessment and plan: Clinically, this appears to be stable. Current Visit: Yes (6) Pulmonary hypertension Status: Chronic Assessment and plan: Pulmonary hypertension is severely elevated on echocardiogram. Current Visit: Yes (7) ESRD on dialysis Status: Chronic Assessment and plan: This continues without issues. Current Visit: No Cardiology - PN: Subj Interval history: Patient from cardiac standpoint is doing well. Having no chest pain shortness of breath. She is not sleeping well and states that she is supposed to be on Klonopin 1 mg 3 times daily is not receiving this. We will go ahead and increase this. Her INR is 1.7. We need to give her extra warfarin today and we will go ahead and place on low-dose Lovenox. She is in renal failure and dialysis. She will generally is doing well otherwise. Hopefully will be able to go home soon. She does complain of a little bit of a cough but her lungs sound clear today. Exam (Progress Note) - Constitutional Vitals: Period Temp Pulse Resp BP Sys/Vargas Pulse Ox Last 24 Hr 97.1 F-98.1 F 73-78 18-20 111-147/55-75 93-100 Exam: General appearance: Overweight, comfortable and in no distress. Head exam: normal inspection, atraumatic Eye exam: Pupils are equal and reactive. EOMI. There is no trauma. Ear exam: Normal external ear exam, decreased hearing right ear. Neck exam: normal inspection no JVD. No carotid bruit. Trachea is in midline. Respiratory exam: Clear anteriorly no gross wheezing. No rhonchi, rales, stridor. Cardiovascular exam: regular rate and rhythm, systolic murmur over the precordium and toward the apex but has mechanical aortic/mitral valve sounds. Chest wall/torso: Has midline sternotomy scar from previous CABG/AVR , intact, appears to be healing well. left Peripheral Pulses: 1+ GI/Abdominal exam: Diminished bowel sounds, soft and nontender. Musculoskeletal/Extremities exam: No edema today. Neurological exam: alert, oriented X3. There is no gross neurologic deficits. Psychiatric exam: Cognitive function is grossly intact. She is a little anxious and depressed today. Skin exam: Warm and dry. she does have some ecchymotic areas which are continuing to improve. Result/EKG - Labs CBC & BMP: 01/27/17 06:01 01/27/17 06:01 Lab Results: I have reviewed the past 24 hour labs Labs: Laboratory Results - last 24 hr 01/26/17 01/26/17 01/26/17 11:30 15:57 19:35 WBC RBC Hgb Hct MCV MCH MCHC RDW Plt Count MPV Neut % (Auto) Lymph % (Auto) [place] % (Auto) Eos % (Auto) Baso % (Auto) Neut # (Auto) Lymph # (Auto) [place] # (Auto) Eos # (Auto) Baso # (Auto) Immature Gran % Nucleated RBC % Immature Gran # Nucleated RBCs # Hypochromasia Macrocytosis Acanthocytes (Spur) INR PT Patient/Control Mix Sodium Potassium Chloride Carbon Dioxide Anion Gap BUN Creatinine GFR Calculation BUN/Creatinine Ratio Glucose POC Glucose 144 H 189 H 188 H Calculated Osmolality Calcium Magnesium 01/27/17 01/27/17 01/27/17 06:01 06:01 08:10 WBC 7.2 RBC 2.58 L Hgb 8.5 L Hct 27.0 L MCV 104.7 H MCH 33 MCHC 31.5 L RDW 23.0 H Plt Count 189 MPV 10.9 Neut % (Auto) 68.6 Lymph % (Auto) 19.1 L [place] % (Auto) 9.6 Eos % (Auto) 1.2 Baso % (Auto) 0.3 Neut # (Auto) 5.0 Lymph # (Auto) 1.4 [place] # (Auto) 0.7 Eos # (Auto) 0.1 Baso # (Auto) 0.0 Immature Gran % 1.2 Nucleated RBC % 0.0 Immature Gran # 0.09 Nucleated RBCs # 0.00 Hypochromasia 1+ Macrocytosis 1+ Acanthocytes (Spur) Few INR 1.7 PT Patient/Control Mix 18.8 Sodium 137 Potassium 4.9 Chloride 102 Carbon Dioxide 26 Anion Gap 13.9 BUN 51 H D Creatinine 3.80 H GFR Calculation 12 BUN/Creatinine Ratio 13.00 Glucose 124 H POC Glucose Calculated Osmolality 287.8 Calcium 8.5 Magnesium 2.4 Quality Measures - Stroke Symptom Onset Unknown: No Specialty Discharge - Follow Up or Referrals
[2017-01-27] MEDS: ENOXAPARIN 30 MG/0.3 ML SYRINGE SUBCUT SCH (11:41)
[2017-01-27] MEDS: clonazePAM 0.5 MG TABLET PO SCH ×2 (14:33→20:40)
[2017-01-27] MEDS: BENZONATATE 100 MG CAPSULE PO SCH ×2 (14:33→20:40)
--- NOTE | 2017-01-27 16:58 | Hospitalist Progress Note ---
Assessment and Plan (1) ESRD on dialysis Status: Chronic Assessment and plan: continue with HD Nephrology is following Current Visit: No (2) Coumadin toxicity Status: Resolved Assessment and plan: INR is now subtherapeutic, Coumadin has been restarted and dose is being adjusted. Current Visit: Yes Qualifiers: Injury intent: accidental or unintentional (3) History of mitral valve replacement with mechanical valve Status: Chronic Assessment and plan: stable, Cardiology is following and adjusting dose of Coumadin, INR is sub therapeutic Current Visit: Yes (4) History of COPD Status: Chronic Assessment and plan: stable Current Visit: Yes (5) Anemia Status: Acute Assessment and plan: Acute blood loss anemia due to bleeding from dialysis shunt S/p transfusion. Plan Monitor CBC Current Visit: Yes Qualifiers: Other causes of anemia: acute posthemorrhagic (6) Pulmonary hypertension Status: Chronic Assessment and plan: cardiology is following Current Visit: Yes Hospitalist: Subjective Interval history: Patient seen today, she feels a bit tired and didn't really sleep well over night. Exam - Constitutional Vitals: Period Temp Pulse Resp BP Sys/Vargas Pulse Ox Last 24 Hr 97.1 F-98.1 F 73-89 18-20 111-147/67-75 93-100 General appearance: no acute distress - Neck Neck exam: Present: normal inspection - Respiratory Respiratory exam: Present: clear to auscultation bilaterally - Cardiovascular Cardiovascular exam: Present: regular rate and rhythm - GI/Abdominal GI/Abdominal exam: Present: normal bowel sounds - Extremities Exam Extremities exam: Present: normal inspection Results - Labs CBC & BMP: 01/27/17 06:01 01/27/17 06:01 Lab Results: I have reviewed the past 24 hour labs Quality Measures - Stroke Symptom Onset Unknown: No Specialty Discharge - Follow Up or Referrals
[2017-01-27] MEDS: CINACALCET 30 MG TABLET PO SCH (17:04)
--- NOTE | 2017-01-27 17:49 | Nephrology Progress Note ---
Nephrology - PN: Subj Interval history: The patient is sitting up on side of the bed resting comfortably no acute changes. She is still very emotional about her recent cardiac surgery. Continue to encourage patient. Exam (PN)-Nephrology - Vital Signs Vital signs: Period Temp Pulse Resp BP Sys/Vargas Pulse Ox Last 24 Hr 97.1 F-98.1 F 73-89 18-20 111-147/67-77 93-100 - General Appearance General appearance: well-developed, well-nourished EENT: ATNC Neck: supple Respiratory: clear Cardiology: regular rate, regular rhythm Gastrointestinal: normoactive bowel sounds, no tenderness Musculoskeletal: no clubbing Psychiatric: mood/affect appropriate, cooperative - Lab 01/27/17 06:01 01/27/17 06:01 Most recent lab results Calcium 8.5 MG/DL (8.5-10.1) 01/27/17 06:01 Magnesium 2.4 MG/DL (1.8-2.4) 01/27/17 06:01 Assessment and Plan (1) ESRD on dialysis Status: Chronic Current Visit: No (2) Coumadin toxicity Status: Resolved Current Visit: Yes Qualifiers: Injury intent: accidental or unintentional (3) Pulmonary hypertension Status: Chronic Current Visit: Yes Specialty Discharge - Follow Up or Referrals
[2017-01-27] MEDS: PRAVASTATIN 20 MG TABLET PO SCH (20:40)
[2017-01-27] MEDS: rOPINIRole 0.25 MG TABLET PO SCH (20:41)
[2017-01-27] MEDS: MIRTAZAPINE 15 MG TABLET PO PRN (20:41)
[2017-01-28] MEDS: ALBUTEROL/IPRATROPIUM 3 ML NEB RESP TX SCH ×4 (01:33→18:54)
[2017-01-28] MEDS: LORazepam 2 MG/1 ML VIAL IV PRN (02:29)
[2017-01-28] MEDS: LEVOTHYROXINE 100 MCG TABLET PO SCH (06:26)
[2017-01-28 07:07] LABS: Basophils % 0.1 % (0.0-0.8); Eosinophils % 0.1 % (0.00-10.9); Hematocrit 27.5 VOL% (35.7-47.0); Hemoglobin 8.5 GM/DL (12.0-16.0); Immature Granulocytes % 0.8 %; Immature Granulocytes Absolute 0.07 #; Lymphocytes # 0.9 10*3/uL (1.4-4.0); Lymphocytes % 10.5 % (21.3-54.2); Mean Corpuscular HGB Conc 30.9 GM/DL (32-36); Mean Corpuscular Hemoglobin 32 PG (27-34); Mean Platelet Volume 10.4 FL (9.6-12.0); Monocytes # 0.8 10*3/uL (0.11-0.8); Monocytes % 8.8 % (1.7-12.7); Neutrophils # 7.1 10*3/uL (1.4-7.4); Neutrophils % 79.7 % (38.7-73.9); Platelet Count 185 T/CUMM (130-400); Red Blood Count 2.67 MC/CUMM (3.8-5.5); Red Cell Distribution Width 22.3 % (9.3-17.3); White Blood Count 8.9 T/CUMM (4-12)
[2017-01-28 07:17] LABS: INR 1.9; PT Patient Result 20.8 SECS
[2017-01-28 07:36] LABS: Calcium 8.9 MG/DL (8.5-10.1); Magnesium 2.4 MG/DL (1.8-2.4); Osmolality,Calculated 298.8 MOS/KG (273-304); Potassium 5.8 MMOL/L (3.5-5.1)
[2017-01-28 07:48] LABS: Acanthocytes Few; Hypochromasia 1+; Microcytosis 1+
[2017-01-28] MEDS: levETIRAcetam 500 MG TABLET PO SCH ×2 (08:26→21:38)
[2017-01-28] MEDS: clonazePAM 0.5 MG TABLET PO SCH ×3 (08:26→21:38)
[2017-01-28] MEDS: CARVEDILOL 6.25 MG TABLET PO SCH ×2 (08:26→21:38)
[2017-01-28] MEDS: amLODIPine 5 MG TABLET PO SCH (08:26)
[2017-01-28] MEDS: PANTOPRAZOLE 40 MG TABLET PO SCH ×2 (08:26→21:38)
[2017-01-28] MEDS: CALCIUM ACETATE 667 MG CAPSULE PO SCH ×3 (08:26→16:31)
[2017-01-28] MEDS: predniSONE 20 MG TABLET PO SCH (08:26)
[2017-01-28] MEDS: sitaGLIPtin 25 MG TABLET PO SCH (08:26)
[2017-01-28] MEDS: FLUTICASONE/SALMETEROL 250-50 DISKUS 14 DOSE INH SCH ×2 (08:27→21:38)
[2017-01-28] MEDS: ONDANSETRON 4 MG/2 ML VIAL IV PRN (08:27)
[2017-01-28] MEDS: DESITIN 4OZ/NYSTATIN 15 GRAM MIXTURE PASTE TOP SCH ×2 (08:27→21:38)
[2017-01-28] MEDS: BENZONATATE 100 MG CAPSULE PO SCH ×3 (08:27→21:38)
[2017-01-28] MEDS: ENOXAPARIN 30 MG/0.3 ML SYRINGE SUBCUT SCH (12:44)
[2017-01-28] MEDS ORDERED: LOPERAMIDE 0.2 MG/ML 30 ML/BOTTLE PO PRN (14:31)
--- NOTE | 2017-01-28 14:32 | Nephrology Progress Note ---
Nephrology - PN: Subj Interval history: Patient is resting at this time. She complains of diarrhea several episodes done today. No fevers or chills. INR is stable at 1.9. Stool for C. difficile. We will give Imodium for diarrhea. Exam (PN)-Nephrology - Vital Signs Vital signs: Period Temp Pulse Resp BP Sys/Vargas Pulse Ox Last 24 Hr 97.6 F-97.8 F 75-89 16-20 119-153/65-78 92-99 - General Appearance General appearance: well-developed, well-nourished EENT: ATNC Neck: supple Respiratory: clear Cardiology: no edema, regular rate, regular rhythm Gastrointestinal: normoactive bowel sounds, no tenderness Neurologic: alert and oriented x3, CN 3-12 intact Musculoskeletal: no clubbing Psychiatric: mood/affect appropriate - Lab 01/28/17 06:45 01/28/17 06:45 Most recent lab results Calcium 8.9 MG/DL (8.5-10.1) 01/28/17 06:45 Magnesium 2.4 MG/DL (1.8-2.4) 01/28/17 06:45 Assessment and Plan (1) ESRD on dialysis Status: Chronic Current Visit: No (2) Coumadin toxicity Status: Resolved Current Visit: Yes Qualifiers: Injury intent: accidental or unintentional (3) Pulmonary hypertension Status: Chronic Current Visit: Yes (4) Diarrhea Status: Chronic Assessment and plan: Stool for C. difficile Imodium for diarrhea Current Visit: No Specialty Discharge - Follow Up or Referrals
--- NOTE | 2017-01-28 15:29 | Cardiology Progress Note ---
Assessment and Plan (1) History of mitral valve replacement with mechanical valve Status: Chronic Assessment and plan: Recent MVR in November 2016. Continue to get her INR out where it it needs to be for her valves and placing her on Lovenox. Current Visit: Yes (2) Status post mechanical aortic valve replacement Status: Acute Assessment and plan: Continuing her anticoagulation and trying her INR up. INR is going up hopefully will be her therapeutic range soon. Current Visit: Yes (3) Anemia Status: Acute Assessment and plan: H&H is stable. This is multifactorial. Some this is from chronic disease. Current Visit: Yes Qualifiers: Other causes of anemia: acute posthemorrhagic (4) Elevated blood pressure reading Status: Resolved Assessment and plan: Blood pressures have been overall stable we will continue to monitor this. Current Visit: Yes (5) History of COPD Status: Chronic Assessment and plan: Clinically, this appears to be stable. Current Visit: Yes (6) Pulmonary hypertension Status: Chronic Assessment and plan: Pulmonary hypertension is severely elevated on echocardiogram. This may be multifactorial as well. Current Visit: Yes (7) ESRD on dialysis Status: Chronic Assessment and plan: This continues without issues. Current Visit: No Cardiology - PN: Subj Interval history: Patient today is complaining of having apparently almost explosive diarrhea after eating something. Is not clear if she is just having a lot of diarrhea from something she is eaten or something else. From cardiac standpoint though she remains stable. Her INR is now 1.9. She has not had any bleeding or bruising issues. Hopefully tomorrow her INR will be 2.0 or greater. Hopefully she will go home soon especially for GI situation resolves. Her lab work otherwise is fairly unremarkable and unchanged. Patient's potassium is 5.8 today. Exam (Progress Note) - Constitutional Vitals: Period Temp Pulse Resp BP Sys/Vargas Pulse Ox Last 24 Hr 97.6 F-97.8 F 75-86 16-20 119-153/65-78 92-99 Exam: General appearance: Overweight, comfortable and in no distress. Head exam: normal inspection, atraumatic Eye exam: Pupils are equal and reactive. EOMI. There is no trauma. Ear exam: Normal external ear exam, decreased hearing right ear. Neck exam: normal inspection no JVD. No carotid bruit. Trachea is in midline. Respiratory exam: Clear anteriorly no gross wheezing. No rhonchi, rales, stridor. Cardiovascular exam: regular rate and rhythm, systolic murmur over the precordium and toward the apex but has mechanical aortic/mitral valve sounds. Chest wall/torso: Has midline sternotomy scar from previous CABG/AVR , intact, appears to be healing well. left Peripheral Pulses: 1+ GI/Abdominal exam: Diminished bowel sounds, soft and nontender. Musculoskeletal/Extremities exam: No edema today. Neurological exam: alert, oriented X3. There is no gross neurologic deficits. Psychiatric exam: Cognitive function is grossly intact. She is a little anxious and depressed today. Skin exam: Warm and dry. she does have some ecchymotic areas which are continuing to improve. Result/EKG - Labs CBC & BMP: 01/28/17 06:45 01/28/17 06:45 Lab Results: I have reviewed the past 24 hour labs Labs: Laboratory Results - last 24 hr 01/27/17 01/28/17 01/28/17 20:49 06:45 06:45 WBC 8.9 RBC 2.67 L Hgb 8.5 L Hct 27.5 L MCV 103.0 H MCH 32 MCHC 30.9 L RDW 22.3 H Plt Count 185 MPV 10.4 Neut % (Auto) 79.7 H Lymph % (Auto) 10.5 L [place] % (Auto) 8.8 Eos % (Auto) 0.1 Baso % (Auto) 0.1 Neut # (Auto) 7.1 Lymph # (Auto) 0.9 L [place] # (Auto) 0.8 Eos # (Auto) 0.0 Baso # (Auto) 0.0 Immature Gran % 0.8 Nucleated RBC % 0.0 Immature Gran # 0.07 Nucleated RBCs # 0.00 Hypochromasia 1+ Microcytosis 1+ Acanthocytes (Spur) Few INR 1.9 PT Patient/Control Mix 20.8 Sodium Potassium Chloride Carbon Dioxide Anion Gap BUN Creatinine GFR Calculation BUN/Creatinine Ratio Glucose POC Glucose 174 H Calculated Osmolality Calcium Magnesium 01/28/17 06:45 WBC RBC Hgb Hct MCV MCH MCHC RDW Plt Count MPV Neut % (Auto) Lymph % (Auto) [place] % (Auto) Eos % (Auto) Baso % (Auto) Neut # (Auto) Lymph # (Auto) [place] # (Auto) Eos # (Auto) Baso # (Auto) Immature Gran % Nucleated RBC % Immature Gran # Nucleated RBCs # Hypochromasia Microcytosis Acanthocytes (Spur) INR PT Patient/Control Mix Sodium 137 Potassium 5.8 H Chloride 103 Carbon Dioxide 23 Anion Gap 16.8 H BUN 78 H Creatinine 5.60 H GFR Calculation 8 BUN/Creatinine Ratio 13.00 Glucose 144 H POC Glucose Calculated Osmolality 298.8 Calcium 8.9 Magnesium 2.4 Quality Measures - Stroke Symptom Onset Unknown: No Specialty Discharge - Follow Up or Referrals
--- NOTE | 2017-01-28 15:36 | Hospitalist Progress Note ---
Assessment and Plan (1) ESRD on dialysis Status: Chronic Assessment and plan: continue with HD Nephrology is following Current Visit: No (2) Coumadin toxicity Status: Resolved Assessment and plan: INR is still subtherapeutic, Coumadin has been restarted and dose is being adjusted. Current Visit: Yes Qualifiers: Injury intent: accidental or unintentional (3) History of mitral valve replacement with mechanical valve Status: Chronic Assessment and plan: stable, Cardiology is following and adjusting dose of Coumadin, INR is sub therapeutic Current Visit: Yes (4) History of COPD Status: Chronic Assessment and plan: stable Current Visit: Yes (5) Anemia Status: Acute Assessment and plan: Acute blood loss anemia due to bleeding from dialysis shunt S/p transfusion. Plan Monitor CBC Current Visit: Yes Qualifiers: Other causes of anemia: acute posthemorrhagic (6) Pulmonary hypertension Status: Chronic Assessment and plan: cardiology is following Current Visit: Yes Hospitalist: Subjective Interval history: Patient state she feels fairly ok.Her INR today was 1.9 Exam - Constitutional Vitals: Period Temp Pulse Resp BP Sys/Vargas Pulse Ox Last 24 Hr 97.6 F-97.8 F 75-86 16-20 119-153/65-78 92-99 General appearance: no acute distress - Neck Neck exam: Present: normal inspection - Cardiovascular Cardiovascular exam: Present: other (mechanical click) - GI/Abdominal GI/Abdominal exam: Present: normal bowel sounds - Extremities Exam Extremities exam: Present: normal inspection Results - Labs CBC & BMP: 01/28/17 06:45 01/28/17 06:45 Lab Results: I have reviewed the past 24 hour labs Quality Measures - Stroke Symptom Onset Unknown: No Specialty Discharge - Follow Up or Referrals
[2017-01-28] MEDS ORDERED: ALUMINUM/MAGNES/SIMETH MAX STR 30 ML UDCUP PO PRN (16:03)
[2017-01-28] MEDS: CINACALCET 30 MG TABLET PO SCH (16:31)
[2017-01-28] MEDS ORDERED: WARFARIN 7.5 MG TABLET PO SCH (18:00)
[2017-01-28] MEDS: WARFARIN 7.5 MG TABLET PO SCH (18:16)
[2017-01-28] MEDS: rOPINIRole 0.25 MG TABLET PO SCH (21:38)
[2017-01-28] MEDS: PRAVASTATIN 20 MG TABLET PO SCH (21:38)
[2017-01-29] MEDS: ALBUTEROL/IPRATROPIUM 3 ML NEB RESP TX SCH ×4 (00:39→19:20)
--- NOTE | 2017-01-29 04:11 | EKG Report ---
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
[2017-01-29] MEDS: LORazepam 2 MG/1 ML VIAL IV PRN (04:30)
[2017-01-29 04:35] LABS: Basophils % 0.2 % (0.0-0.8); Eosinophils % 0.5 % (0.00-10.9); Hemoglobin 9.5 GM/DL (12.0-16.0); Immature Granulocytes % 0.5 %; Immature Granulocytes Absolute 0.03 #; Lymphocytes # 0.9 10*3/uL (1.4-4.0); Lymphocytes % 14.1 % (21.3-54.2); Mean Corpuscular HGB Conc 31.7 GM/DL (32-36); Mean Corpuscular Hemoglobin 33 PG (27-34); Mean Corpuscular Volume 104.2 FL (87-102); Mean Platelet Volume 10.6 FL (9.6-12.0); Monocytes # 0.4 10*3/uL (0.11-0.8); Monocytes % 6.7 % (1.7-12.7); Neutrophils # 5.1 10*3/uL (1.4-7.4); Platelet Count 135 T/CUMM (130-400); Red Blood Count 2.88 MC/CUMM (3.8-5.5); Red Cell Distribution Width 21.6 % (9.3-17.3); White Blood Count 6.5 T/CUMM (4-12)
[2017-01-29 05:01] LABS: Magnesium 2.3 MG/DL (1.8-2.4); Osmolality,Calculated 306.8 MOS/KG (273-304)
[2017-01-29 05:03] LABS: Potassium 6.1 MMOL/L (3.5-5.1)
[2017-01-29 05:12] LABS: Troponin I Only 0.049 NG/ML (0.00-0.045)
[2017-01-29] MEDS: LEVOTHYROXINE 100 MCG TABLET PO SCH ×2 (05:58→06:00)
[2017-01-29] MEDS: CALCIUM ACETATE 667 MG CAPSULE PO SCH ×3 (08:22→17:35)
[2017-01-29] MEDS: clonazePAM 0.5 MG TABLET PO SCH ×3 (08:22→20:13)
[2017-01-29] MEDS: PANTOPRAZOLE 40 MG TABLET PO SCH ×2 (08:22→20:13)
[2017-01-29] MEDS: amLODIPine 5 MG TABLET PO SCH (08:22)
[2017-01-29] MEDS: predniSONE 20 MG TABLET PO SCH (08:22)
[2017-01-29] MEDS: sitaGLIPtin 25 MG TABLET PO SCH (08:22)
[2017-01-29] MEDS: levETIRAcetam 500 MG TABLET PO SCH ×2 (08:22→20:13)
[2017-01-29] MEDS: BENZONATATE 100 MG CAPSULE PO SCH ×3 (08:23→20:13)
[2017-01-29] MEDS: CARVEDILOL 6.25 MG TABLET PO SCH ×2 (08:23→20:14)
--- NOTE | 2017-01-29 09:42 | Cardiology Progress Note ---
Cardiology - PN: Subj Interval history: Cardiology note 61-year-old woman status post double valve replacement and single-vessel CABG November 29, 2016 at [facility] in [place]. She presented with shortness of breath bleeding from her dialysis site and Coumadin toxicity with an INR greater than 18. Patient has chronic renal failure and has been on dialysis for the past 6 years in [place]. 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 Mechanical aortic valve has no AI and a 22 mm gradient. There was severe TR 79mmHg Plan 7.5 mg Coumadin Dialysis today Recheck INR a.m. She has a shredding specialist in [place] Dr. Carr who follows her. Exam (Progress Note) - Constitutional Vitals: Period Temp Pulse Resp BP Sys/Vargas Pulse Ox Last 24 Hr 96.6 F-98.1 F 72-83 16-20 120-144/64-78 92-100 Result/EKG - Labs CBC & BMP: 01/29/17 04:10 01/29/17 04:10 Labs: Laboratory Results - last 24 hr 01/29/17 01/29/17 01/29/17 04:10 04:10 04:10 WBC 6.5 RBC 2.88 L Hgb 9.5 L Hct 30.0 L MCV 104.2 H MCH 33 MCHC 31.7 L RDW 21.6 H Plt Count 135 D MPV 10.6 Neut % (Auto) 78.0 H Lymph % (Auto) 14.1 L [place] % (Auto) 6.7 Eos % (Auto) 0.5 Baso % (Auto) 0.2 Neut # (Auto) 5.1 Lymph # (Auto) 0.9 L [place] # (Auto) 0.4 Eos # (Auto) 0.0 Baso # (Auto) 0.0 Immature Gran % 0.5 Nucleated RBC % 0.0 Immature Gran # 0.03 Nucleated RBCs # 0.00 Sodium 137 Potassium 6.1 H* Chloride 105 Carbon Dioxide 24 Anion Gap 14.1 BUN 103 H D Creatinine 6.90 H GFR Calculation 6 BUN/Creatinine Ratio 14.00 Glucose 141 H Calculated Osmolality 306.8 H Calcium 9.0 Magnesium 2.3 Total Creatine Kinase 24 L D CK-MB (CK-2) 1.6 Troponin I 0.049 H Quality Measures - Stroke Symptom Onset Unknown: No Specialty Discharge - Follow Up or Referrals
[2017-01-29] MEDS: DESITIN 4OZ/NYSTATIN 15 GRAM MIXTURE PASTE TOP SCH ×2 (10:16→21:38)
[2017-01-29] MEDS: FLUTICASONE/SALMETEROL 250-50 DISKUS 14 DOSE INH SCH ×2 (10:16→20:14)
[2017-01-29 11:13] LABS: PT Patient Result 33.5 SECS
[2017-01-29 12:01] LABS: Troponin I Only 0.052 NG/ML (0.00-0.045)
--- NOTE | 2017-01-29 12:43 | Dialysis Note ---
Dialysis Note - Dialysis Note Ms. Betancourt is seen in dialysis. She is stable and anxious to go home. Her INR today is 3 she can go home from our standpoint she will be dialyzed at [facility]. She understands the absolute necessity of taking Coumadin and having it checked regularly and understands that her dose will likely vary significantly from time to time.
[2017-01-29] MEDS: ENOXAPARIN 30 MG/0.3 ML SYRINGE SUBCUT SCH (14:11)
--- NOTE | 2017-01-29 14:14 | Hospitalist Progress Note ---
Assessment and Plan (1) ESRD on dialysis Status: Chronic Assessment and plan: continue with HD Nephrology is following Current Visit: No (2) Coumadin toxicity Status: Resolved Assessment and plan: INR is now therapeutic at 3.0, Pharmacy is dosing. Current Visit: Yes Qualifiers: Injury intent: accidental or unintentional (3) History of mitral valve replacement with mechanical valve Status: Chronic Assessment and plan: stable, Cardiology is following and adjusting dose of Coumadin, INR is therapeutic Current Visit: Yes (4) History of COPD Status: Chronic Assessment and plan: stable Current Visit: Yes (5) Anemia Status: Acute Assessment and plan: Acute blood loss anemia due to bleeding from dialysis shunt S/p transfusion. Plan Monitor CBC Current Visit: Yes Qualifiers: Other causes of anemia: acute posthemorrhagic (6) Pulmonary hypertension Status: Chronic Assessment and plan: cardiology is following Current Visit: Yes (7) Chest pain Status: Acute Assessment and plan: s/p double valve replacement and single-vessel CABG November 29, 2016. cardiology is following Current Visit: Yes Hospitalist: Subjective Interval history: Patient had an episode of chest pain earlier on this am, her troponin bumped a little. Exam - Constitutional Vitals: Period Temp Pulse Resp BP Sys/Vargas Pulse Ox Last 24 Hr 96.6 F-98.2 F 72-86 17-20 120-144/64-76 92-100 General appearance: no acute distress - Head Head exam: Present: normal inspection - Respiratory Respiratory exam: Present: clear to auscultation bilaterally - Cardiovascular Cardiovascular exam: Present: regular rate and rhythm, other (mechanical click) - GI/Abdominal GI/Abdominal exam: Present: normal bowel sounds - Extremities Exam Extremities exam: Present: normal inspection Results - Labs CBC & BMP: 01/29/17 04:10 01/29/17 04:10 Lab Results: I have reviewed the past 24 hour labs Quality Measures - Stroke Symptom Onset Unknown: No Specialty Discharge - Follow Up or Referrals
[2017-01-29 16:50] LABS: Troponin I Only 0.042 NG/ML (0.00-0.045)
[2017-01-29] MEDS: CINACALCET 30 MG TABLET PO SCH (17:35)
[2017-01-29] MEDS: WARFARIN 7.5 MG TABLET PO SCH (17:35)
[2017-01-29] MEDS: rOPINIRole 0.25 MG TABLET PO SCH (20:13)
[2017-01-29] MEDS: MIRTAZAPINE 15 MG TABLET PO PRN (20:13)
[2017-01-29] MEDS: PRAVASTATIN 20 MG TABLET PO SCH (20:13)
[2017-01-30] MEDS: ALBUTEROL/IPRATROPIUM 3 ML NEB RESP TX SCH ×3 (00:36→13:17)
[2017-01-30 05:00] LABS: INR 2.6
[2017-01-30 05:05] LABS: PT Patient Result 29.2 SECS
[2017-01-30] MEDS: LEVOTHYROXINE 100 MCG TABLET PO SCH (06:09)
--- NOTE | 2017-01-30 06:43 | Cardiology Progress Note ---
Cardiology - PN: Subj Interval history: Cardiology note 61-year-old woman status post double valve replacement and single-vessel CABG November 29, 2016 at [facility] in [place]. Coumadin toxicity has been resolved. Chronic renal failure on dialysis. No shortness of breath. Patient is anxious to go home. Blood pressure 120/70 O2 sat 97% 2 L Decreased breath sounds but clear Regular rhythm with crisp prosthetic clicks and soft systolic murmur Abdomen benign No leg edema Lab data today INR 2.6 Pro time 29.2 Plan Home okay with me She is dialyzed every Sunday and Sunday in [place] Dr. Carr is her small order cutter in [place]. And she will follow-up with him. I emphasized the importance of getting regular pro time/INR checks Exam (Progress Note) - Constitutional Vitals: Period Temp Pulse Resp BP Sys/Vargas Pulse Ox Last 24 Hr 97.4 F-98.7 F 72-87 16-21 121-150/57-76 91-100 Result/EKG - Labs CBC & BMP: 01/29/17 04:10 01/29/17 04:10 Labs: Laboratory Results - last 24 hr 01/29/17 01/29/17 01/29/17 10:19 10:19 15:41 INR 3.0 PT Patient/Control Mix 33.5 D POC Glucose Total Creatine Kinase 20 L 18 L CK-MB (CK-2) 1.6 1.9 Troponin I 0.052 H 0.042 01/29/17 01/30/17 16:20 04:33 INR 2.6 PT Patient/Control Mix 29.2 POC Glucose 236 H Total Creatine Kinase CK-MB (CK-2) Troponin I Quality Measures - Stroke Symptom Onset Unknown: No Specialty Discharge - Follow Up or Referrals
--- NOTE | 2017-01-30 09:40 | Discharge Summary ---
<Blanquita Avalos - Last Filed: 01/30/17 09:33> Hospital Course - Hospital Course Hospital Course: 61F w history of ESRD on HD, COPD, and recent heart surgery for double valve replacement and single vessel cabg admitted w supratherapeutic INR of 18 and acute blood loss anemia. pt was followed by dr lal for her dialysis needs. she did bleed from her shunt sticks but this improved when INR came down. pt did receive 2 units of packed cells and platelets on HD. dr ni and dr drake followed the pt for cardiology. due to mechanical valve pt needs coumadin w INR range from 2.5-3.5. her coumadin has been restarted and her inr is 2.6 today. there has been no further bleeding and pt is eager to go home. she will needfrequent INR checks at least for a while. she will need to follow up w her weave defect charting clerk in [place] in 1-2wks. diet recommendations were also discussed w pt to help keep her INR therapeutic. case was coordinated w physicians, pt and nursing staff. care coordination, chart review and discharge paperwork took approximately 35 mins. - Time spent with patient Time with patient DS: Greater than 30 minutes Specialty Discharge - Follow Up or Referrals Discharge Plan - Discharge Data Disposition: Disch To Home/Self Care - Discharge Medications New Carvedilol [Coreg] 6.25 mg PO BID #60 tablet Fluticasone/Salmeterol 250-50 [Advair 250-50] 1 puff INH BID #1 Warfarin [Coumadin] 7.5 mg PO DAILY@1800 #30 tablet predniSONE TAB [PredniSONE] 20 mg PO DAILY #7 tablet amLODIPine [Norvasc] 5 mg PO DAILY #30 tablet Continue Linagliptin [Tradjenta] 5 mg PO DAILY Cinacalcet HCl [Sensipar] 60 mg PO DAILY W/SUPPER Ropinirole HCl [Requip] 0.5 mg PO BEDTIME Promethazine Tab [Phenergan Tab] 25 mg PO Q6H PRN PRN Reason: Nausea clonazePAM [Klonopin] 1 mg PO BID PRN PRN Reason: Anxiety levETIRAcetam TAB [Keppra Tab] 500 mg PO BID Pravastatin [Pravachol] 20 mg PO BEDTIME Pantoprazole Tab [Protonix Tab] 40 mg PO BID Fluticasone 50 Mcg Nasal [place] [Flonase Nasal [place]] 1 spray BOTH NARES DAILY Azelastine HCl [Azelastine 0.1% Nasal [place]] 1 spray BOTH NARES BID tiZANidine [Zanaflex] 4 mg PO TID Budesonide/Formoterol 160-4.5 [Symbicort 160-4.5] 1 puff INH BID Mirtazapine [Remeron] 15 mg PO BEDTIME PRN PRN Reason: Sleep Promethazine Liquid [Phenergan Liquid] 25 mg PO Q6H Calcium Acetate [Phoslo] 667 mg PO TID W/MEALS Levothyroxine Tab [Synthroid Tab] 50 mcg PO DAILY@0700 Discontinued Warfarin Sodium [Jantoven] 10 mg PO DAILY - Follow Up or Referral - Forms/Instructions Instructions: Warfarin (By mouth), Calcium Acetate (By mouth), Mitral Valve Replacement (DC), Aortic Valve Replacement (DC) Exam - Constitutional Vitals: Period Temp Pulse Resp BP Sys/Vargas Pulse Ox Last 24 Hr 97.4 F-98.7 F 77-87 16-21 121-150/57-76 91-100 Discharge Results Labs on day of discharge: Labs from last 24 hours 01/30/17 01/29/17 01/29/17 04:33 16:20 15:41 INR 2.6 PT Patient/Control Mix 29.2 POC Glucose 236 H Total Creatine Kinase 18 L CK-MB (CK-2) 1.9 Troponin I 0.042 01/29/17 01/29/17 10:19 10:19 INR 3.0 PT Patient/Control Mix 33.5 D POC Glucose Total Creatine Kinase 20 L CK-MB (CK-2) 1.6 Troponin I 0.052 H DS: Provider Date of admission: 01/22/17 03:22 Primary care physician: . No PCP Attending physician on admission: Yury Munroe MD Consults: 01/22/17 05:51 Consult to Pharmacy [CONS] Routine Reason for Pharmacy Consult: Adjust Meds Renal Funct 01/22/17 05:57 Consult to Physician [CONS] Routine Comment: INR 18.8, post op heart surgery 6 weeks ago Consulting Provider: Yury Ni Consulting Provider Notified: Yes Consult to Specialist Group: Cardiology Person Notified: CIS Date Notified: 01/22/17 Time Notified: 09:00 Consult Notification Comment: ALREADY SEEN PT THIS AM 01/26/17 17:35 Consult to Dietitian [CONS] Routine Reason for Dietitian: Coumadin Education 01/27/17 11:33 Consult to Pharmacy [CONS] Routine Reason for Pharmacy Consult: Other Comment: assist with coumadin dosing to get theraputic Discharging clinician: LONG Carey Expected date of discharge: 01/30/17 <Leti Burden - Last Filed: 01/30/17 11:05> Hospital Course - Hospital Course Hospital Course: patient went for dialysis today, vitals are stable, will go home after dialysis. - Time spent with patient Time with patient DS: Greater than 30 minutes (Time spent: 35mins) Diagnosis - Discharge Diagnosis (1) ESRD on dialysis Status: Chronic (2) Coumadin toxicity Status: Resolved (3) History of mitral valve replacement with mechanical valve Status: Chronic (4) History of COPD Status: Chronic (5) Anemia Status: Acute (6) Pulmonary hypertension Status: Chronic (7) Chest pain Status: Acute Discharge Plan - Discharge Data Condition at Discharge: Stable Discharge Diet: heart healthy Activity: resume usual activities as tolerated - Forms/Instructions Additional Discharge Instructions: INR check in 3days.. PCP follow up in 1week Exam - Constitutional General appearance: no acute distress - Head Head exam: Present: normal inspection - Respiratory Respiratory exam: Present: clear to auscultation bilaterally - Cardiovascular Cardiovascular exam: Present: regular rate and rhythm, other (mechanical click) - GI/Abdominal GI/Abdominal exam: Present: normal bowel sounds - Extremities Exam Extremities exam: Present: normal inspection
[2017-01-30] MEDS: sitaGLIPtin 25 MG TABLET PO SCH (10:00)
[2017-01-30] MEDS: predniSONE 20 MG TABLET PO SCH (10:00)
[2017-01-30] MEDS: CALCIUM ACETATE 667 MG CAPSULE PO SCH ×2 (10:00→14:30)
[2017-01-30] MEDS: clonazePAM 0.5 MG TABLET PO SCH ×2 (10:00→16:27)
[2017-01-30] MEDS: levETIRAcetam 500 MG TABLET PO SCH (10:01)
[2017-01-30] MEDS: amLODIPine 5 MG TABLET PO SCH (10:01)
[2017-01-30] MEDS: BENZONATATE 100 MG CAPSULE PO SCH ×2 (10:01→16:27)
[2017-01-30] MEDS: CARVEDILOL 6.25 MG TABLET PO SCH (10:02)
[2017-01-30] MEDS: FLUTICASONE/SALMETEROL 250-50 DISKUS 14 DOSE INH SCH (10:02)
[2017-01-30] MEDS: DESITIN 4OZ/NYSTATIN 15 GRAM MIXTURE PASTE TOP SCH (10:02)
[2017-01-30] MEDS: PANTOPRAZOLE 40 MG TABLET PO SCH (10:02)
[2017-01-30 10:57] VITALS: BP 107/68
[2017-01-30] MEDS: ENOXAPARIN 30 MG/0.3 ML SYRINGE SUBCUT SCH (14:30)
== END 2017-01-30 16:35 | disposition home or self-care (01) | DRG 813 ==
LOC: EDUNIT# → EDBD → N.ED 00:53 → N.EDINP 03:22 → SUATTDRO 03:22 → N.ICU 03:58 → N.5E 01-24 18:50
PROVIDERS: ADMIT Internal Medicine; ATTEND Internal Medicine

== ENCOUNTER 2017-02-01 23:23 | Inpatient (IN) ==
--- NOTE | 2017-02-01 23:59 | Emergency Department Note ---
Katherin Crow Hilary, am scribing for, and in the presence of, Regino Kendrick MD 23:54. Aroldo Crow Robert M, MD, personally performed the services described in this documentation, ascribed by Emy Pandey in my presence, and it is both accurate and complete 359 . Arrival - Arrival Chief Complaint: Non-Specific Stated Complaint: edema ED Nursing Triage Note: C/O Edema all over- since lastnight. Pt states was discharged from hospital 2 days ago. Pt called dialysis earlier today and was told to come tomorrow instead of Sunday, pt states she she feels like she cannot wait until tomorrow. No shortness of breath/chest pain. Mode of Arrival: Wheelchair Limitations: No Limitations Source: Patient, RN Notes Reviewed - History of Present Illness HPI Narrative: Pt is a 61 y/o female presenting to the ED with c/o edema all over which onset yesterday morning. Pt confirms SOB, Wheezing, cough, bloating and painful swelling but denies chest pain. She states that she tried sleep with her feet elevated with no relief. Pt has a PMHx of CAD, valvular heart disease, Peripheral neuropathy on feet and toes, COPD, GERD and Renal failure which she is currently undergoing dialysis. Onset (ago): day(s) Date of Last Menstrual Period: Hysterectomy Allergies/Adverse Reactions: Allergies Allergy/AdvReac Type Severity Reaction Status Date / Time Iodinated Contrast Media - Allergy RASH Verified 01/22/17 01:00 Oral and [Iodinated Contrast Media - IV Dye] Penicillins Allergy ANAPHYLAXIS Verified 01/22/17 01:00 aspirin AdvReac Nausea Verified 01/22/17 01:00 cephalexin [From Keflex] AdvReac Vomiting Verified 01/22/17 01:00 Sulfa (Sulfonamide AdvReac Vomiting Verified 01/22/17 01:00 Antibiotics) Home Medications: Home Medications Medication Instructions Recorded Confirmed Type Azelastine HCl [Azelastine 0.1% 1 spray BOTH NARES BID 04/04/16 02/01/17 History Nasal [place]] Budesonide/Formoterol 160-4.5 1 puff INH BID 04/04/16 02/01/17 History [Symbicort 160-4.5] Calcium Acetate [Phoslo] 667 mg PO TID W/MEALS 04/04/16 02/01/17 History Cinacalcet HCl [Sensipar] 60 mg PO DAILY W/SUPPER 04/04/16 02/01/17 History Fluticasone 50 Mcg Nasal [place] 1 spray BOTH NARES DAILY 04/04/16 02/01/17 History [Flonase Nasal [place]] Levothyroxine Tab [Synthroid Tab] 50 mcg PO DAILY@0700 04/04/16 02/01/17 History Linagliptin [Tradjenta] 5 mg PO DAILY 04/04/16 02/01/17 History Mirtazapine [Remeron] 15 mg PO BEDTIME PRN 04/04/16 02/01/17 History Pantoprazole Tab [Protonix Tab] 40 mg PO BID 04/04/16 02/01/17 History Pravastatin [Pravachol] 20 mg PO BEDTIME 04/04/16 02/01/17 History Promethazine Liquid [Phenergan 25 mg PO Q6H 04/04/16 02/01/17 History Liquid] Promethazine Tab [Phenergan Tab] 25 mg PO Q6H PRN 04/04/16 02/01/17 History Ropinirole HCl [Requip] 0.5 mg PO BEDTIME 04/04/16 02/01/17 History clonazePAM [Klonopin] 1 mg PO TID 04/04/16 02/01/17 History levETIRAcetam TAB [Keppra Tab] 500 mg PO BID 04/04/16 02/01/17 History tiZANidine [Zanaflex] 4 mg PO TID 04/04/16 02/01/17 History Carvedilol [Coreg] 6.25 mg PO BID #60 tablet 01/30/17 02/01/17 Rx Fluticasone/Salmeterol 250-50 1 puff INH BID #1 01/30/17 02/01/17 Rx [Advair 250-50] Warfarin [Coumadin] 7.5 mg PO DAILY@1800 #30 tablet 01/30/17 02/01/17 Rx amLODIPine [Norvasc] 5 mg PO DAILY #30 tablet 01/30/17 02/01/17 Rx predniSONE TAB [PredniSONE] 20 mg PO DAILY #7 tablet 01/30/17 02/01/17 Rx Review of System - Review of System 12 point system: reviewed and no additional remarkable complaints except as stated - Review of System Constitutional: Absent: fever Respiratory: Present: cough, respiratory distress (SOB), wheezing Cardiovascular: Absent: chest pain Musculoskeletal: Present: other (painful generalized swelling) Medical,Surgical,& Family Hx - Medical History Cardio: History of: CAD (question of bypass surgery with recent cardiac surgery. ), Valvular Heart Disease (has had recent aortic valve replacement), Cardiovascular Problems (impression recent aortic issue.) Psychological: History of: Anxiety Disorders, Depression Neurology: History of: Peripheral Neuropathy (FEET/TOES), Vertigo Respiratory: History of: Asthma, COPD Renal: History of: Renal Failure Gastrointestinal: History of: GERD (on dialysis) Hematology: History of: Clotting Problems (pt states she had a clot "three or four years ago") No history of: Blood Transfusion Reaction Other: History of: Miscellaneous Medical Problems (Sinus surgery) No history of: Anesthesia Reactions - Surgical History Cardiac Surgeries: Sugical HX of: Cardiac Catheterization (NO STENTS PLACE, NO HEART DISEASE NOTED) HEENT Surgeries: Surgical HX of: Tonsilectomy & Adenoidectomy Abdominal Surgeries: Surgical HX of: Abdominal Surgery (COLON REMOVED), Cholecystectomy Reproductive Surgeries: Surgical HX of;: Hysterectomy - Social History Smoking Status: Former smoker Frequency of Alcohol Use: None Type of Drug Use: None Exam Vital Signs: Vital Signs Temperature 98.8 F 02/02/17 00:01 Pulse Rate 85 02/02/17 00:01 Respiratory Rate 20 02/02/17 00:01 Blood Pressure 129/85 02/02/17 00:01 O2 Sat by Pulse Oximetry 94 L 02/01/17 23:26 - General General appearance: alert, in no apparent distress - Head Head exam: Present: atraumatic, normocephalic - Eye Eye exam: Present: normal appearance, PERRL, EOMI - ENT ENT exam: Present: mucous membranes moist, TM's normal bilaterally. Absent: mucous membranes dry - Neck Neck exam: Present: full ROM, trachea midline. Absent: tenderness - Chest Chest inspection: Present: symmetric chest wall rise. Absent: tenderness - Respiratory Respiratory exam: Present: normal lung sounds bilaterally, other (Tachypnic) - Cardiovascular Cardiovascular exam: Present: regular rate, normal rhythm, normal heart sounds. Absent: murmur, rubs, gallop - Abdominal Exam Abdominal exam: Present: soft, normal bowel sounds. Absent: distention, tenderness - Extremities Exam Extremities exam: Present: full ROM, pedal edema (4+ pitting edema on lower extremities bilaterally). Absent: tenderness - Back Exam Back exam: Present: full ROM. Absent: tenderness - Neurological Exam Neurological exam: Present: alert, oriented X3, CN II-XII intact. Absent: motor sensory deficit - Psychiatric Psychiatric exam: Present: normal affect, normal mood - Skin Skin exam: Present: warm, dry, intact. Absent: normal color (scattered purpura) , rash Course - Reevaluation(s) Reevaluation #1: Multiple attempts were made with placement of ultrasound-guided right IJ central venous catheter. The wire would not pass easily therefore angled Glidewire was used. This felt to pass but no imaging was available to confirm this. The central venous catheter was advanced over the wire with no difficulty but would not flush or aspirate. Imaging demonstrated to be most likely in the azygous or other small collateral. Repositioning of the line did not help. Ultimately a 18-gauge needle was placed in the IJ within the same bed of the first line. Time: 01:37 - Consultations Consultation #1: Dr. Paris will evaluate and admit the patient. Time: 01:38 Results - Labs CBC & BMP: 02/01/17 23:58 Lab Results: I have reviewed the patients labs Labs: Lab Results WBC 6.7 T/CUMM (4-12) 02/01/17 23:58 RBC 2.01 MC/CUMM (3.8-5.5) L D 02/01/17 23:58 Hgb 6.6 GM/DL (12.0-16.0) L D 02/01/17 23:58 Hct 20.7 VOL% (35.7-47.0) L 02/01/17 23:58 MCV 103.0 FL (87-102) H 02/01/17 23:58 MCH 33 PG (27-34) 02/01/17 23:58 MCHC 31.9 GM/DL (32-36) L 02/01/17 23:58 RDW 20.5 % (9.3-17.3) H 02/01/17 23:58 Plt Count 109 T/CUMM (130-400) L 02/01/17 23:58 MPV 11.5 FL (9.6-12.0) 02/01/17 23:58 Neut % (Auto) 75.9 % (38.7-73.9) H 02/01/17 23:58 Lymph % (Auto) 17.1 % (21.3-54.2) L 02/01/17 23:58 [place] % (Auto) 6.0 % (1.7-12.7) 02/01/17 23:58 Eos % (Auto) 0.6 % (0.00-10.9) 02/01/17 23:58 Baso % (Auto) 0.0 % (0.0-0.8) 02/01/17 23:58 Neut # (Auto) 5.1 10*3/uL (1.4-7.4) 02/01/17 23:58 Lymph # (Auto) 1.2 10*3/uL (1.4-4.0) L 02/01/17 23:58 [place] # (Auto) 0.4 10*3/uL (0.11-0.8) 02/01/17 23:58 Eos # (Auto) 0.0 10*3/uL (0.0-0.87) 02/01/17 23:58 Baso # (Auto) 0.0 10*3/uL (0.0-0.2) 02/01/17 23:58 Immature Gran % 0.4 % 02/01/17 23:58 Nucleated RBC % 0.0 /100WBC 02/01/17 23:58 Immature Gran # 0.03 # 02/01/17 23:58 Nucleated RBCs # 0.00 10*3/uL 02/01/17 23:58 INR 4.6 02/01/17 23:58 PT Patient/Control Mix 53.6 SECS D 02/01/17 23:58 B-Natriuretic Peptide 1788 PG/ML (2-100) H 02/01/17 23:58 - Diagnostic Findings Procedure: Chest x-ray: image reviewed by me (No acute process. Right IJ be noted) Disposition Clinical Impression: GI bleed, Symptomatic anemia, History of mitral valve replacement with mechanical valve, Pulmonary hypertension, ESRD on dialysis, Dietary noncompliance, CKD (chronic kidney disease) Case discussed with: patient, patient's family Disposition: Disch To Home/Self Care Condition: Stable Time of Disposition: 01:39
[2017-02-02 00:07] LABS: Eosinophils % 0.6 % (0.00-10.9); Hematocrit 20.7 VOL% (35.7-47.0); Hemoglobin 6.6 GM/DL (12.0-16.0); Immature Granulocytes % 0.4 %; Immature Granulocytes Absolute 0.03 #; Lymphocytes # 1.2 10*3/uL (1.4-4.0); Lymphocytes % 17.1 % (21.3-54.2); Mean Corpuscular HGB Conc 31.9 GM/DL (32-36); Mean Corpuscular Hemoglobin 33 PG (27-34); Mean Platelet Volume 11.5 FL (9.6-12.0); Monocytes # 0.4 10*3/uL (0.11-0.8); Neutrophils # 5.1 10*3/uL (1.4-7.4); Neutrophils % 75.9 % (38.7-73.9); Platelet Count 109 T/CUMM (130-400); Red Blood Count 2.01 MC/CUMM (3.8-5.5); Red Cell Distribution Width 20.5 % (9.3-17.3); White Blood Count 6.7 T/CUMM (4-12)
[2017-02-02 00:29] LABS: INR 4.6
[2017-02-02 00:30] LABS: PT Patient Result 53.6 SECS
[2017-02-02 01:44] LABS: Albumin 3.3 G/DL (3.4-5.0); Bilirubin,Total 1.9 MG/DL (0.2-1.0); Calcium 8.5 MG/DL (8.5-10.1); Osmolality,Calculated 300.5 MOS/KG (273-304); Potassium 5.6 MMOL/L (3.5-5.1); Total Protein 5.9 G/DL (6.4-8.3); Troponin I Only 0.043 NG/ML (0.00-0.045)
[2017-02-02] MEDS ORDERED: ONDANSETRON 4 MG/2 ML VIAL IV PRN (02:16)
[2017-02-02] MEDS ORDERED: SODIUM CHLORIDE 0.9% 250 ML IV PRN (02:23)
[2017-02-02] MEDS ORDERED: ENOXAPARIN 30 MG/0.3 ML SYRINGE SUBCUT SCH (02:30)
--- NOTE | 2017-02-02 02:43 | Hospitalist History & Physical ---
Assessment and Plan (1) GI bleed Status: Acute Assessment and plan: H&H 6.6 and 20.7. Admit to ICU. Order and transfuse 2 units of PRBCs on hemodialysis. GI has been consulted for possible EGD. Current Visit: Yes (2) Hyperkalemia Problem details: HD today. Dietary education. Status: Acute Assessment and plan: Potassium 5.4. Plan for dialysis today. Current Visit: No (3) ESRD on dialysis Status: Chronic Assessment and plan: BUN 80 creatinine 5.5. This appears to be right at or just above patient's baseline. Nephrology has been consulted. Plan for dialysis today. Current Visit: Yes (4) CKD (chronic kidney disease) Status: Acute Current Visit: Yes (5) History of mitral valve replacement with mechanical valve Status: Chronic Current Visit: Yes History of Present Illness Chief complaint: GI Bleed, edema History of present illness: Ms. Betancourt is a 61 year old female with a past medical history significant for hypertension, COPD, ESRD on hemodialysis, valvular heart disease with mitral valve replacement (on Warfarin) who presents to the ED today with complaints of edema with onset one day ago. She was recently discharged from the hospital on 01/31/17 during which time she was being treated for supratherapeutic INR and anemia. The patient is a on chronic hemodialysis and was last dialyzed on Sunday. She noticed swelling in her lower extremities and face one day ago, contacted her technical services librarian, and was told to come in for inpatient dialysis on today. She reports increased shortness of breath, nonproductive cough, wheezing , uncomfortable swelling and near syncope. She denies chest pain, headache. On admission, the patient is anemic with H&H of 6.6 and 20.7. Upon further questioning, the patient admits to noticing dark blood on the tissue when she wipes and dark stool in the commode. She says this has been an ongoing problem. Other labs reveal: K 5.6, BUN 80, Cr 5.50, Total bilirubin 1.9, BNP 1788. After discussion with Dr. Kendrick and Dr. Paris, it has been agreed that she will be admitted to the ICU for further evaluation and treatment. We will consult nephrology for dialysis and transfusion; GI for possible scope. Patient is a full code. Home Medications Medication Instructions Recorded Confirmed Type Azelastine HCl [Azelastine 0.1% 1 spray BOTH NARES BID 04/04/16 02/01/17 History Nasal [place]] Budesonide/Formoterol 160-4.5 1 puff INH BID 04/04/16 02/01/17 History [Symbicort 160-4.5] Calcium Acetate [Phoslo] 667 mg PO TID W/MEALS 04/04/16 02/01/17 History Cinacalcet HCl [Sensipar] 60 mg PO DAILY W/SUPPER 04/04/16 02/01/17 History Fluticasone 50 Mcg Nasal [place] 1 spray BOTH NARES DAILY 04/04/16 02/01/17 History [Flonase Nasal [place]] Levothyroxine Tab [Synthroid Tab] 50 mcg PO DAILY@0700 04/04/16 02/01/17 History Linagliptin [Tradjenta] 5 mg PO DAILY 04/04/16 02/01/17 History Mirtazapine [Remeron] 15 mg PO BEDTIME PRN 04/04/16 02/01/17 History Pantoprazole Tab [Protonix Tab] 40 mg PO BID 04/04/16 02/01/17 History Pravastatin [Pravachol] 20 mg PO BEDTIME 04/04/16 02/01/17 History Promethazine Liquid [Phenergan 25 mg PO Q6H 04/04/16 02/01/17 History Liquid] Promethazine Tab [Phenergan Tab] 25 mg PO Q6H PRN 04/04/16 02/01/17 History Ropinirole HCl [Requip] 0.5 mg PO BEDTIME 04/04/16 02/01/17 History clonazePAM [Klonopin] 1 mg PO TID 04/04/16 02/01/17 History levETIRAcetam TAB [Keppra Tab] 500 mg PO BID 04/04/16 02/01/17 History tiZANidine [Zanaflex] 4 mg PO TID 04/04/16 02/01/17 History Carvedilol [Coreg] 6.25 mg PO BID #60 tablet 01/30/17 02/01/17 Rx Fluticasone/Salmeterol 250-50 1 puff INH BID #1 01/30/17 02/01/17 Rx [Advair 250-50] Warfarin [Coumadin] 7.5 mg PO DAILY@1800 #30 tablet 01/30/17 02/01/17 Rx amLODIPine [Norvasc] 5 mg PO DAILY #30 tablet 01/30/17 02/01/17 Rx predniSONE TAB [PredniSONE] 20 mg PO DAILY #7 tablet 01/30/17 02/01/17 Rx Allergies Allergy/AdvReac Type Severity Reaction Status Date / Time Iodinated Contrast Media - Allergy RASH Verified 01/22/17 01:00 Oral and [Iodinated Contrast Media - IV Dye] Penicillins Allergy ANAPHYLAXIS Verified 01/22/17 01:00 aspirin AdvReac Nausea Verified 01/22/17 01:00 cephalexin [From Keflex] AdvReac Vomiting Verified 01/22/17 01:00 Sulfa (Sulfonamide AdvReac Vomiting Verified 01/22/17 01:00 Antibiotics) Medical,Surgical,& Family Hx - Medical History Cardio: History of: CAD (question of bypass surgery with recent cardiac surgery. ), Valvular Heart Disease (has had recent aortic valve replacement), Cardiovascular Problems (impression recent aortic issue.) Psychological: History of: Anxiety Disorders, Depression Neurology: History of: Peripheral Neuropathy (FEET/TOES), Vertigo Respiratory: History of: Asthma, COPD Renal: History of: Renal Failure Gastrointestinal: History of: GERD (on dialysis) Hematology: History of: Clotting Problems (pt states she had a clot "three or four years ago") No history of: Blood Transfusion Reaction Other: History of: Miscellaneous Medical Problems (Sinus surgery) No history of: Anesthesia Reactions - Surgical History Cardiac Surgeries: Sugical HX of: Cardiac Catheterization (NO STENTS PLACE, NO HEART DISEASE NOTED) HEENT Surgeries: Surgical HX of: Tonsilectomy & Adenoidectomy Abdominal Surgeries: Surgical HX of: Abdominal Surgery (COLON REMOVED), Cholecystectomy Reproductive Surgeries: Surgical HX of;: Hysterectomy - Family History Family History: Reports;: Family Heart Disease, Family Hypertension - Social History Smoking Status: Former smoker Have you smoked in the last 12 months: No Frequency of Alcohol Use: None Type of Drug Use: None Marital Status: Single Lives With:: Alone Functional capacity: independent ambulation - Constitutional Constitutional: Present: fatigue, weakness. Absent: frequent falls, headache(s) - EENT Eyes: Present: blurry vision. Absent: loss of vision Ears: Absent: decreased hearing, ear pain Nose, mouth and throat: Absent: headache(s), neck pain, vertigo - Cardiovascular Cardiovascular: Present: dyspnea, edema. Absent: chest pain at rest, radiating jaw, neck or arm pain, palpitations - Respiratory Respiratory: Present: cough, dyspnea, wheezing. Absent: pain on inspiration - Gastrointestinal Gastrointestinal: Present: melena. Absent: abdominal pain, nausea, vomiting - Genitourinary Genitourinary: Absent: difficulty urinating, dysuria, hematuria - Musculoskeletal Musculoskeletal: Absent: back pain - Neurological Neurological: Present: dizziness. Absent: abnormal speech, confusion, syncope - Psychiatric Psychiatric: Absent: anxiety, confusion - Endocrine Endocrine: Present: fatigue. Absent: cold intolerance, heat intolerance - Hematologic/Lymphatic Hematologic/Lymphatic: Present: easy bleeding, easy bruising Exam - Constitutional Vitals: Period Temp Pulse Resp BP Sys/Vargas Pulse Ox Last 24 Hr 98.8 F-98.8 F 85-85 20-20 129-129/85-85 94 Exam: General appearance: normal weight, mild distress - Head Head exam: Present: normocephalic, atraumatic, facial edema - Eye Eye exam: Present: EOMI. Absent: conjunctival injection, nystagmus Pupils: Present: NONI, normal accommodation - ENT ENT exam: Present: normal exam, normal external ear exam - Neck Neck exam: Present: normal inspection. Absent: lymphadenopathy, tenderness, thyromegaly - Respiratory Respiratory exam: Present: clear to auscultation bilaterally. Absent: rales, rhonchi, - Cardiovascular Cardiovascular exam: Present: regular rate and rhythm, mechanical valve present. Absent: carotid bruit, gallop, rubs - GI/Abdominal GI/Abdominal exam: Present: normal bowel sounds. Absent: ascites, distended, mass - Extremities Exam Extremities exam: Present: normal inspection, normal capillary refill, lower extremity edema bilaterally 2+ 3+ - Back Exam Back exam: Absent: CVA tenderness (L), CVA tenderness (R) - Neurological Exam Neurological exam: Present: alert, oriented X3 - Psychiatric Psychiatric exam: Present: normal affect, normal mood - Skin Skin exam: Present: normal color, warm, dry Results - Labs CBC & BMP: 02/01/17 23:58 02/01/17 23:58 Lab Results: I have reviewed the past 24 hour labs - Diagnostic Findings Procedure: Chest x-ray: image reviewed by me
[2017-02-02 05:52] LABS: Basophils % 0.1 % (0.0-0.8); Eosinophils # 0.1 10*3/uL (0.0-0.87); Eosinophils % 1.5 % (0.00-10.9); Hematocrit 19.7 VOL% (35.7-47.0); Immature Granulocytes % 0.3 %; Immature Granulocytes Absolute 0.02 #; Lymphocytes # 1.4 10*3/uL (1.4-4.0); Lymphocytes % 20.4 % (21.3-54.2); Mean Corpuscular Hemoglobin 32 PG (27-34); Mean Corpuscular Volume 102.1 FL (87-102); Mean Platelet Volume 11.3 FL (9.6-12.0); Monocytes # 0.4 10*3/uL (0.11-0.8); Monocytes % 5.5 % (1.7-12.7); Neutrophils # 4.8 10*3/uL (1.4-7.4); Neutrophils % 72.2 % (38.7-73.9); Platelet Count 139 T/CUMM (130-400); Red Blood Count 1.93 MC/CUMM (3.8-5.5); Red Cell Distribution Width 20.3 % (9.3-17.3); White Blood Count 6.7 T/CUMM (4-12)
[2017-02-02 05:57] LABS: Hemoglobin 6.1 GM/DL (12.0-16.0)
[2017-02-02] MEDS: LEVOTHYROXINE 100 MCG TABLET PO SCH (06:16)
[2017-02-02 06:34] LABS: Calcium 8.7 MG/DL (8.5-10.1); Magnesium 1.9 MG/DL (1.8-2.4); Osmolality,Calculated 301.5 MOS/KG (273-304); Potassium 5.7 MMOL/L (3.5-5.1); Thyroid Stimulating Hormone 4.07 uIU/ml (0.358-3.74)
--- NOTE | 2017-02-02 06:38 | XRay Report ---
Portable chest Date: 02/02/2017 Clinical history: Chest pain, shortness of breath Comparison: 01/22/2017 Technique: Portable AP sitting chest Findings: Stable cardiomegaly patient with prior median sternotomy and cardiac valve replacement. Reduced but persistent diffuse parenchymal findings. Stable mediastinum and osseous structures. Small caliber IV in the inferior right neck location. No pneumothorax. Impression: Status post median sternotomy with cardiac valve replacement. Improved but persistent mild pulmonary edema with underlying chronic scarring. PROCEDURE INTERPRETED AT [facility] DEPARTMENT OF RADIOLOGY Final Report Signed by: Dr. Aissatou Beckham
--- NOTE | 2017-02-02 11:02 | Gastrointestinal Consult Note ---
Assessment and Plan (1) Melena Status: Acute Assessment and plan: 02/02-reports of melena daily for several months. History of anemia with recent blood transfusion and inpatient stay. Hemoglobin now 6.1 and being transfused 2 units packed red blood cells. On Coumadin therapy for history of mitral valve replacement with INR 4.6 on admission. 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 Plan an addendum to followed by Dr. Luke. Current Visit: Yes History of Present Illness Chief complaint: Anemia, melena History of present illness: Ms. Betancourt is a 61 year old female who was admitted to the hospital last night with complaints of increased edema, shortness of breath and painful swelling. Patient has a history of renal disease with dialysis 3 days a week. She also has a history of CAD, peripheral neuropathy, COPD, valvular heart disease. Patient has a history of mitral valve replacement with lifetime anticoagulant therapy on Coumadin. She was discharged from our facility 2 days ago after an inpatient stay for shortness of breath. She was found during that hospital stay to have an INR of 18 with anemia. She was transfused 2 units of packed red blood cells and 4 units of fresh frozen plasma during this inpatient stay. Upon discharge her Coumadin was restarted with an INR of 2.6. Her discharge hemoglobin is also noted at 9.5. Upon admission last night patient's INR was found to be 4.6. Her hemoglobin has also dropped to 6.1. There was report of patient having some blood loss at dialysis after the needle dislodged however patient denies this report. She does state that she does have a history of having small dark mucousy stools every morning. She is on chronic iron therapy. Patient does have a history of small bowel obstruction in the past with ileostomy however this was her first several years ago. 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 She also had a small bowel camera diet 2011 with findings of multiple AVMs of the jejunum. Patient states that she does have dark stools off and down over the last several years. She denies any NSAID use. Denies any recent weight loss. Denies any abdominal pain. Denies any nausea vomiting. She is to be transfused 2 units of packed red blood cells today. Home Medications Medication Instructions Recorded Confirmed Type Azelastine HCl [Azelastine 0.1% 1 spray BOTH NARES BID 04/04/16 02/01/17 History Nasal [place]] Budesonide/Formoterol 160-4.5 1 puff INH BID 04/04/16 02/01/17 History [Symbicort 160-4.5] Calcium Acetate [Phoslo] 667 mg PO TID W/MEALS 04/04/16 02/01/17 History Cinacalcet HCl [Sensipar] 60 mg PO DAILY W/SUPPER 04/04/16 02/01/17 History Fluticasone 50 Mcg Nasal [place] 1 spray BOTH NARES DAILY 04/04/16 02/01/17 History [Flonase Nasal [place]] Levothyroxine Tab [Synthroid Tab] 50 mcg PO DAILY@0700 04/04/16 02/01/17 History Linagliptin [Tradjenta] 5 mg PO DAILY 04/04/16 02/01/17 History Mirtazapine [Remeron] 15 mg PO BEDTIME PRN 04/04/16 02/01/17 History Pantoprazole Tab [Protonix Tab] 40 mg PO BID 04/04/16 02/01/17 History Pravastatin [Pravachol] 20 mg PO BEDTIME 04/04/16 02/01/17 History Promethazine Liquid [Phenergan 25 mg PO Q6H 04/04/16 02/01/17 History Liquid] Promethazine Tab [Phenergan Tab] 25 mg PO Q6H PRN 04/04/16 02/01/17 History Ropinirole HCl [Requip] 0.5 mg PO BEDTIME 04/04/16 02/01/17 History clonazePAM [Klonopin] 1 mg PO TID 04/04/16 02/01/17 History levETIRAcetam TAB [Keppra Tab] 500 mg PO BID 04/04/16 02/01/17 History tiZANidine [Zanaflex] 4 mg PO TID 04/04/16 02/01/17 History Carvedilol [Coreg] 6.25 mg PO BID #60 tablet 01/30/17 02/01/17 Rx Fluticasone/Salmeterol 250-50 1 puff INH BID #1 01/30/17 02/01/17 Rx [Advair 250-50] Warfarin [Coumadin] 7.5 mg PO DAILY@1800 #30 tablet 01/30/17 02/01/17 Rx amLODIPine [Norvasc] 5 mg PO DAILY #30 tablet 01/30/17 02/01/17 Rx predniSONE TAB [PredniSONE] 20 mg PO DAILY #7 tablet 01/30/17 02/01/17 Rx Allergies Allergy/AdvReac Type Severity Reaction Status Date / Time Iodinated Contrast Media - Allergy RASH Verified 01/22/17 01:00 Oral and [Iodinated Contrast Media - IV Dye] Penicillins Allergy ANAPHYLAXIS Verified 01/22/17 01:00 aspirin AdvReac Nausea Verified 01/22/17 01:00 cephalexin [From Keflex] AdvReac Vomiting Verified 01/22/17 01:00 Sulfa (Sulfonamide AdvReac Vomiting Verified 01/22/17 01:00 Antibiotics) Medical,Surgical,& Family Hx - Medical History Cardio: History of: CAD (question of bypass surgery with recent cardiac surgery. ), Valvular Heart Disease (has had recent aortic valve replacement), Cardiovascular Problems (impression recent aortic issue.) Psychological: History of: Anxiety Disorders, Depression Neurology: History of: Peripheral Neuropathy (FEET/TOES), Vertigo Endocrine: History of: Diabetes Mellitus (IDDM) Respiratory: History of: Asthma, COPD Renal: History of: Renal Failure Gastrointestinal: History of: GERD (on dialysis), Gastrointestinal Bleed Hematology: History of: Bleeding Problems (high inr), Clotting Problems (pt states she had a clot "three or four years ago") No history of: Blood Transfusion Reaction Other: History of: Miscellaneous Medical Problems (Sinus surgery) No history of: Anesthesia Reactions - Surgical History Cardiac Surgeries: Sugical HX of: Cardiac Catheterization (NO STENTS PLACE, NO HEART DISEASE NOTED) Thoracic Surgeries: Patient denies;: Organ Transplant HEENT Surgeries: Surgical HX of: Tonsilectomy & Adenoidectomy Abdominal Surgeries: Surgical HX of: Abdominal Surgery (COLON REMOVED), Cholecystectomy Reproductive Surgeries: Surgical HX of;: Gynecologic Surgery, Hysterectomy - Family History Family History: Reports;: Family Heart Disease, Family Hypertension - Social History Smoking Status: Former smoker Frequency of Alcohol Use: None Type of Drug Use: None 12 point system: reviewed and no additional remarkable complaints except as stated - Constitutional Constitutional: Present: as per HPI - EENT Eyes: Present: as per HPI Ears: Present: as per HPI Nose, mouth and throat: Present: as per HPI - Cardiovascular Cardiovascular: Present: as per HPI - Respiratory Respiratory: Present: as per HPI, dyspnea - Gastrointestinal Gastrointestinal: Present: as per HPI, melena - Genitourinary Genitourinary: Present: as per HPI - Musculoskeletal Musculoskeletal: Present: as per HPI - Neurological Neurological: Present: as per HPI - Psychiatric Psychiatric: Present: as per HPI - Endocrine Endocrine: Present: as per HPI - Hematologic/Lymphatic Hematologic/Lymphatic: Present: as per HPI Exam - Constitutional Vitals: Period Temp Pulse Resp BP Sys/Vargas Pulse Ox Last 24 Hr 97.6 F 73-79 14-21 100-132/62-79 95-100 General appearance: normal weight, no acute distress - Head Head exam: Present: normal inspection, normocephalic - Eye Eye exam: Present: other (Lids and conjunctive are unremarkable). Absent: scleral icterus - ENT ENT exam: Present: normal exam, normal oropharynx - Neck Neck exam: Present: normal inspection - Respiratory Respiratory exam: Present: clear to auscultation bilaterally. Absent: rales, rhonchi, wheezes - Cardiovascular Cardiovascular exam: Present: regular rate and rhythm. Absent: diastolic murmur , JVD, systolic murmur - GI/Abdominal GI/Abdominal exam: Present: normal bowel sounds, soft. Absent: ascites, distended, mass, organomegaly, tenderness - Extremities Exam Extremities exam: Present: normal inspection, full ROM - Back Exam Back exam: Present: normal inspection - Neurological Exam Neurological exam: Present: alert, oriented X3 - Psychiatric Psychiatric exam: Present: normal affect, normal mood - Skin Skin exam: Present: normal color, warm, dry Results - Labs CBC & BMP: 02/02/17 05:03 02/02/17 05:03 Lab Results: I have reviewed the past 24 hour labs
--- NOTE | 2017-02-02 12:36 | Nephrology Consult Note ---
History of Present Illness Chief complaint: End-stage renal disease in a patient admitted for edema History of present illness: Ms. Betancourt is a 61 year old female lady who dialyzes on a Sunday basis in [facility]. Patient was just discharged from the hospital about 3 days ago after hospitalization for Coumadin toxicity. Patient was home for a few days and began to notice swelling in her face and extremities. Patient had dialysis about 2 days ago but was unable to have any fluid removed during that time same due to low blood pressure. On presentation here the patient complains of the swelling that she states started about a day or so after being discharged she states her breathing is okay and has been pretty good since having mechanical heart valve replacement surgery done about 2 -3 months ago. The patient states she was started on four new medications after being discharged a few days ago including amlodipine and carvedilol. The patient also had a triple lumen catheter in her neck during her previous hospitalization due to problems with blood sticks. This catheter was removed on her day of discharge. On presentation the patient was noted to have a hematocrit of around 21% this level has decreased in 19% since her admit. Patient states she has been having some black tarry stools in the morning since her discharge. She is also had some blood clots in her nares since discharge. The patient's INR was noted to be 4 on admission. ROS: Head -positive headaches ENT -positive sore throat Lymphatics - denies lymphadenopathy Hematology -positive bleeding problems Heart - denies chest pain Lungs -some mild shortness of breath Abdomen - denies abdominal pain Musculoskeletal -positive for chronic pain Skin - denies rash Neurology - denies stroke, she does have a seizure disorder General -she had some fever before having her heart pounding replacements done a few months ago, no fever recently PE: General: in no acute distress Eyes: Pupils are round and reactive, conjunctivae are clear ENT: Nose is clear, O/P is benign Neck: Supple, no thyromegaly Lymphatics: No cervical, supraclavicular or axillary adenopathy Heart: Regular rate and rhythm, the patient has obvious facial swelling and 1-2 + pretibial edema Lungs: Clear to auscultation anteriorly, chest expansion symmetric Abdomen: Soft, normoactive bowel sounds, no hepatomegaly Musculoskeletal: No joint erythema or effusions or joint asymmetry Skin: Normal turgor, normal hydration, no rash Neuro/Psych: Alert and cooperative with fair insight Home Medications Medication Instructions Recorded Confirmed Type Azelastine HCl [Azelastine 0.1% 1 spray BOTH NARES BID 04/04/16 02/01/17 History Nasal [place]] Budesonide/Formoterol 160-4.5 1 puff INH BID 04/04/16 02/01/17 History [Symbicort 160-4.5] Calcium Acetate [Phoslo] 667 mg PO TID W/MEALS 04/04/16 02/01/17 History Cinacalcet HCl [Sensipar] 60 mg PO DAILY W/SUPPER 04/04/16 02/01/17 History Fluticasone 50 Mcg Nasal [place] 1 spray BOTH NARES DAILY 04/04/16 02/01/17 History [Flonase Nasal [place]] Levothyroxine Tab [Synthroid Tab] 50 mcg PO DAILY@0700 04/04/16 02/01/17 History Linagliptin [Tradjenta] 5 mg PO DAILY 04/04/16 02/01/17 History Mirtazapine [Remeron] 15 mg PO BEDTIME PRN 04/04/16 02/01/17 History Pantoprazole Tab [Protonix Tab] 40 mg PO BID 04/04/16 02/01/17 History Pravastatin [Pravachol] 20 mg PO BEDTIME 04/04/16 02/01/17 History Promethazine Liquid [Phenergan 25 mg PO Q6H 04/04/16 02/01/17 History Liquid] Promethazine Tab [Phenergan Tab] 25 mg PO Q6H PRN 04/04/16 02/01/17 History Ropinirole HCl [Requip] 0.5 mg PO BEDTIME 04/04/16 02/01/17 History clonazePAM [Klonopin] 1 mg PO TID 04/04/16 02/01/17 History levETIRAcetam TAB [Keppra Tab] 500 mg PO BID 04/04/16 02/01/17 History tiZANidine [Zanaflex] 4 mg PO TID 04/04/16 02/01/17 History Carvedilol [Coreg] 6.25 mg PO BID #60 tablet 01/30/17 02/01/17 Rx Fluticasone/Salmeterol 250-50 1 puff INH BID #1 01/30/17 02/01/17 Rx [Advair 250-50] Warfarin [Coumadin] 7.5 mg PO DAILY@1800 #30 tablet 01/30/17 02/01/17 Rx amLODIPine [Norvasc] 5 mg PO DAILY #30 tablet 01/30/17 02/01/17 Rx predniSONE TAB [PredniSONE] 20 mg PO DAILY #7 tablet 01/30/17 02/01/17 Rx Allergies Allergy/AdvReac Type Severity Reaction Status Date / Time Iodinated Contrast Media - Allergy RASH Verified 01/22/17 01:00 Oral and [Iodinated Contrast Media - IV Dye] Penicillins Allergy ANAPHYLAXIS Verified 01/22/17 01:00 aspirin AdvReac Nausea Verified 01/22/17 01:00 cephalexin [From Keflex] AdvReac Vomiting Verified 01/22/17 01:00 Sulfa (Sulfonamide AdvReac Vomiting Verified 01/22/17 01:00 Antibiotics) Medical,Surgical,& Family Hx - Medical History Cardio: History of: CAD (question of bypass surgery with recent cardiac surgery. ), Valvular Heart Disease (has had recent aortic valve replacement), Cardiovascular Problems (impression recent aortic issue.) Psychological: History of: Anxiety Disorders, Depression Neurology: History of: Peripheral Neuropathy (FEET/TOES), Vertigo Endocrine: History of: Diabetes Mellitus (IDDM) Respiratory: History of: Asthma, COPD Renal: History of: Renal Failure Gastrointestinal: History of: GERD (on dialysis), Gastrointestinal Bleed Hematology: History of: Bleeding Problems (high inr), Clotting Problems (pt states she had a clot "three or four years ago") No history of: Blood Transfusion Reaction Other: History of: Miscellaneous Medical Problems (Sinus surgery) No history of: Anesthesia Reactions - Surgical History Cardiac Surgeries: Sugical HX of: Cardiac Catheterization (NO STENTS PLACE, NO HEART DISEASE NOTED) Thoracic Surgeries: Patient denies;: Organ Transplant HEENT Surgeries: Surgical HX of: Tonsilectomy & Adenoidectomy Abdominal Surgeries: Surgical HX of: Abdominal Surgery (COLON REMOVED), Cholecystectomy Reproductive Surgeries: Surgical HX of;: Gynecologic Surgery, Hysterectomy - Family History Family History: Reports;: Family Heart Disease, Family Hypertension - Social History Smoking Status: Former smoker Frequency of Alcohol Use: None Type of Drug Use: None Exam - Vital Signs Vital signs: Period Temp Pulse Resp BP Sys/Vargas Pulse Ox Last 24 Hr 97.6 F 73-79 14-21 100-132/62-79 95-100 Results - Labs CBC & BMP: 02/02/17 05:03 02/02/17 05:03 Assessment and Plan (1) ESRD on dialysis Status: Chronic Assessment and plan: We will plan on hemodialysis today we will try ultrafilter some of the excess fluid in her body as she tolerates, hopefully the blood transfusions during dialysis will allow us to remove some of the excess fluid Current Visit: Yes (2) Volume overload Status: Acute Assessment and plan: This patient's main complaint was swelling in the past few days since she has been discharged. 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 Patient is also been started on amlodipine recently which may be contributing to some of her lower extremity swelling, her blood loss anemia may also be increasing her fluid extravasation and subsequent swelling. Current Visit: Yes (3) GI bleed Status: Acute Assessment and plan: This patient has been having some black tarry stools her hematocrit is fallen around 19% from around 29% at the time of her recent discharge a few days ago. GI medicine has been consulted Current Visit: Yes (4) Melena Status: Acute Current Visit: Yes (5) Symptomatic anemia Status: Acute Current Visit: Yes (6) History of mitral valve replacement with mechanical valve Status: Chronic Current Visit: Yes (7) Pulmonary hypertension Status: Chronic Current Visit: Yes (8) Anemia Status: Acute Current Visit: No Qualifiers: Other causes of anemia: acute posthemorrhagic (9) Diarrhea Status: Chronic Current Visit: No (10) History of COPD Status: Chronic Current Visit: No (11) Coumadin toxicity Status: Resolved Current Visit: No Qualifiers: Injury intent: accidental or unintentional
[2017-02-02] MEDS: AZELASTINE NASAL 137 MCG/SPRAY 30 ML BOTTLE BOTH NARES SCH ×2 (14:50→22:14)
[2017-02-02] MEDS: levETIRAcetam 500 MG TABLET PO SCH ×2 (14:50→21:15)
[2017-02-02] MEDS: CALCIUM ACETATE 667 MG CAPSULE PO SCH ×2 (14:50→18:15)
[2017-02-02] MEDS: sitaGLIPtin 25 MG TABLET PO SCH (14:50)
[2017-02-02] MEDS: CARVEDILOL 6.25 MG TABLET PO SCH ×2 (14:50→21:15)
[2017-02-02] MEDS: clonazePAM 0.5 MG TABLET PO SCH ×2 (14:51→21:15)
[2017-02-02] MEDS: amLODIPine 5 MG TABLET PO SCH (14:51)
[2017-02-02] MEDS: tiZANidine 4 MG TABLET PO SCH ×2 (14:51→21:14)
[2017-02-02] MEDS: PANTOPRAZOLE 40 MG TABLET PO SCH (14:51)
--- NOTE | 2017-02-02 15:59 | Event Note ---
This is an addendum to the gastroenterology consult note dictated by Mariella BLACKBURN today. Patient is a 61-year-old female with ESRD admitted with recent black stools over the last 2 weeks she says. She is on chronic anticoagulation with Coumadin. On presentation her INR is elevated, 4.6 today. No active bleeding has been noted today. She is hemodynamically stable and is seen in dialysis this afternoon. She denies abdominal pain or nausea. Patient does have past history of small bowel AVMs. Agree with plan for serial hemoglobins with blood product support as needed. Empiric PPI therapy. Holding Coumadin and would give FFP if has active GI bleeding. Probable EGD after INR corrected.
[2017-02-02] MEDS ORDERED: WARFARIN 7.5 MG TABLET PO SCH (18:00)
[2017-02-02] MEDS: CINACALCET 30 MG TABLET PO SCH (18:16)
[2017-02-02 19:23] LABS: Hematocrit 25.6 VOL% (35.7-47.0); Hemoglobin 8.3 GM/DL (12.0-16.0)
[2017-02-02] MEDS: PRAVASTATIN 20 MG TABLET PO SCH (21:15)
[2017-02-02] MEDS: rOPINIRole 0.25 MG TABLET PO SCH (21:15)
[2017-02-03 04:26] LABS: Basophils % 0.2 % (0.0-0.8); Eosinophils # 0.1 10*3/uL (0.0-0.87); Eosinophils % 1.5 % (0.00-10.9); Hematocrit 24.2 VOL% (35.7-47.0); Hemoglobin 7.8 GM/DL (12.0-16.0); Immature Granulocytes % 0.5 %; Immature Granulocytes Absolute 0.03 #; Lymphocytes # 1.1 10*3/uL (1.4-4.0); Lymphocytes % 18.6 % (21.3-54.2); Mean Corpuscular HGB Conc 32.2 GM/DL (32-36); Mean Corpuscular Hemoglobin 32 PG (27-34); Mean Corpuscular Volume 99.2 FL (87-102); Mean Platelet Volume 10.9 FL (9.6-12.0); Monocytes # 0.3 10*3/uL (0.11-0.8); Monocytes % 5.8 % (1.7-12.7); Neutrophils # 4.3 10*3/uL (1.4-7.4); Neutrophils % 73.4 % (38.7-73.9); Platelet Count 114 T/CUMM (130-400); Red Blood Count 2.44 MC/CUMM (3.8-5.5); Red Cell Distribution Width 20.5 % (9.3-17.3); White Blood Count 5.9 T/CUMM (4-12)
[2017-02-03 05:33] LABS: Magnesium 1.9 MG/DL (1.8-2.4); Osmolality,Calculated 287.5 MOS/KG (273-304); Potassium 5.5 MMOL/L (3.5-5.1)
[2017-02-03] MEDS: LEVOTHYROXINE 100 MCG TABLET PO SCH (06:41)
[2017-02-03 07:46] LABS: PT Patient Result 61.3 SECS
[2017-02-03 07:47] LABS: INR 5.2
[2017-02-03] MEDS: AZELASTINE NASAL 137 MCG/SPRAY 30 ML BOTTLE BOTH NARES SCH ×2 (08:29→21:43)
[2017-02-03] MEDS: CARVEDILOL 6.25 MG TABLET PO SCH ×2 (08:29→21:39)
[2017-02-03] MEDS: CALCIUM ACETATE 667 MG CAPSULE PO SCH ×3 (08:29→17:28)
[2017-02-03] MEDS: sitaGLIPtin 25 MG TABLET PO SCH (08:30)
[2017-02-03] MEDS: levETIRAcetam 500 MG TABLET PO SCH ×2 (08:30→21:40)
[2017-02-03] MEDS: amLODIPine 5 MG TABLET PO SCH (08:31)
[2017-02-03] MEDS: clonazePAM 0.5 MG TABLET PO SCH ×3 (08:31→21:39)
[2017-02-03] MEDS: PANTOPRAZOLE 40 MG TABLET PO SCH (08:31)
[2017-02-03] MEDS: tiZANidine 4 MG TABLET PO SCH ×3 (08:32→21:40)
--- NOTE | 2017-02-03 11:06 | Gastrointestinal Progress Note ---
Assessment and Plan - Time spent with patient Time spent with patient: Greater than 30 minutes (1) Melena Status: Acute Current Visit: Yes (2) Coumadin toxicity Status: Resolved Current Visit: No Qualifiers: Injury intent: accidental or unintentional (3) Other specified counseling Status: Acute Current Visit: Yes Exam (Progress Note) - Constitutional Vitals: Period Temp Pulse Resp BP Sys/Vargas Pulse Ox Last 24 Hr 97 F-98.0 F 71-81 16-20 101-187/56-101 94-100 Results - Labs CBC & BMP: 02/03/17 03:38 02/03/17 03:38 Note Addendum: PLEASE NOTE -- automatic citation of patient information is unavoidable in this electronic note. I have made a reasonable effort to review the information cited , but it is not a part of my evaluation, impression, or recommendation unless specifically discussed in the dictated text that follows. As well, voice recognition software was used in the creation of this clinical note. Reasonable effort was made to identify and correct gross errors. Despite proofreading, errors in paint specialist may be present, including nonsense verbiage at times. If you encounter such an error, please contact me at [phone] for discussion and correction. -- Dejan Chief complaint: melena Subjective: the patient is a 61-year-old female seen for follow-up of melena. She was admitted two days ago with complaint of two-week history of same. She was noted to be on anticoagulant for stroke prophylaxis in the setting of a mechanical mitral heart valve replacement and the initial INR was noted to be 4.6. She was noted to be anemic with hemoglobin of 6.1 g/dL. She has received a total of two units of packed red blood cells during the admission with appropriate response and hemoglobin. Anticoagulant was held but not reversed. The patient has one bowel movement documented overnight which was brown in color. She is otherwise without gastrointestinal complaints this morning. Medications: Tylenol, Duoneb, Norvasc, aspirin, phoslo, Coreg, Sensipar, Klonopin, [place], Keppra, Synthroid, Remeron, Zofran, Protonix, Pravachol, Requip , Januvia, Zanaflex Review of Symptoms: 12 point review of symptoms was negative except as noted above Physical examination: Vital Signs: Current vital signs reviewed. General Appearance: well-appearing. Not acutely ill. Head: Normocephalic. Eyes: no scleral icterus. No scleral injection. No conjunctival pallor. Oral Cavity: Odor of breath was normal. No drooling was observed. Lips showed no abnormalities. Lungs: Respiration rhythm and depth was normal. Cardiovascular: Heart rate and rhythm were normal. Abdomen: abdomen was not distended. Abdominal auscultation revealed no abnormalities. Ascites was not discovered. Abdominal palpation revealed no tenderness and no hepatosplenomegaly. Musculoskeletal System: musculoskeletal system was grossly normal. Neurological: level of consciousness was normal. Speech was normal. No coordination/cerebellum abnormalities were noted. Skin: Gen. appearance was normal. Color and pigmentation were normal. No skin lesions were appreciated. Laboratory: white blood count 5.9, hemoglobin 7.8, hematocrit 24.2, platelets 114, INR 5.2, PT 61 Radiology: reviewed with no pertinent changes noted. Impressions: 1. Melena -- the patient likely has upper gastrointestinal bleeding or right- sided colonic bleeding in the setting of iatrogenic coagulopathy. I recommend continued monitoring of blood counts with further transfusion as indicated. I recommend deliberate reduction of INR to the greatest extent tolerable. I recommend continued proton pump inhibitor. We will need to pursue upper endoscopy with timing based on clinical progress but would prefer to have INR, at least, <2.5. While no absolute lower level is well supported in literature, attempted hemostasis of gastrointestinal bleeding sites with INR outside this range tends to be futile. 2. Iatrogenic coagulopathy -- as discussed above, continued coagulopathy is likely to precipitate further bleeding. I recommend deliberate reduction in INR with goal <2.5. 3. Other specified counseling -- Patient seen for greater than 30 minutes. Greater than 50% of this time was spent counseling regarding differential diagnosis, likely diagnosis,, diagnostic and therapeutic options, risks, benefits, and alternatives to procedures and medications, informed consent, and plan of care generally. Patient has expressed understanding and wishes to proceed. Recommendations: -- continued aggressive volume management -- continued monitoring of blood counts with further transfusion as indicated -- deliberate reduction of INR to the extent practicable -- endoscopic evaluation with hemostasis as indicated once INR is <2.5 -- we will continue to follow with you
--- NOTE | 2017-02-03 13:02 | Nephrology Progress Note ---
Nephrology - PN: Subj Interval history: She was admitted with GI bleeding. She denies abdominal pain or melena today. She has no shortness of breath. Exam (PN)-Nephrology - Vital Signs Vital signs: Period Temp Pulse Resp BP Sys/Vargas Pulse Ox Last 24 Hr 97 F-98.0 F 71-81 16-20 101-187/56-101 94-99 Exam: Gen.: Alert and oriented x3. ENT: Pupils equal round reactive to light. EOMs intact. Mucous membranes moist. Neck: Supple. No JVD or bruit. Cardiovascular: Regular rate and rhythm. Prosthetic valve click Lungs: Clear Abdomen: Soft. Nontender. Positive bowel sounds. No organomegaly Extremities: 1+ edema - Lab 02/03/17 03:38 02/03/17 03:38 Most recent lab results Calcium 8.0 MG/DL (8.5-10.1) L 02/03/17 03:38 Magnesium 1.9 MG/DL (1.8-2.4) 02/03/17 03:38 Assessment and Plan (1) ESRD on dialysis Status: Chronic Assessment and plan: 61-year-old woman with: * ESRD. Dialyzed yesterday * GI bleed. Hematocrit very slightly lower than yesterday. Followed by GI * Coumadin toxicity. * Prosthetic mitral valve Current Visit: Yes (2) GI bleed Status: Acute Current Visit: Yes (3) Symptomatic anemia Status: Acute Current Visit: Yes (4) History of mitral valve replacement with mechanical valve Status: Chronic Current Visit: Yes (5) Pulmonary hypertension Status: Chronic Current Visit: Yes
--- NOTE | 2017-02-03 16:57 | Hospitalist Progress Note ---
Assessment and Plan - Time spent with patient Time spent with patient: Greater than 30 minutes (1) Acute blood loss anemia Status: Acute Assessment and plan: Continue serial hemoglobins. GI involved. Tranfusions prn. Current Visit: Yes (2) GI bleed Status: Acute Assessment and plan: See above. Current Visit: Yes (3) ESRD on dialysis Status: Chronic Assessment and plan: Nephrology on board. Current Visit: Yes (4) History of mitral valve replacement with mechanical valve Status: Chronic Assessment and plan: Holding coumadin. INR supratherapeutic. Current Visit: Yes (5) Hyperkalemia Problem details: HD today. Dietary education. Status: Acute Assessment and plan: Defer to nephrology. Current Visit: No (6) Coumadin toxicity Status: Resolved Assessment and plan: See above. Current Visit: No Qualifiers: Injury intent: accidental or unintentional Hospitalist: Subjective Interval history: No complaints. Denies recurrence of bleeding. Denies hematemesis. Exam - Constitutional Vitals: Period Temp Pulse Resp BP Sys/Vargas Pulse Ox Last 24 Hr 97.3 F-98.0 F 71-81 20-20 101-187/56-101 94-96 General appearance: no acute distress - Head Head exam: Present: normocephalic, atraumatic - Eye Eye exam: Present: EOMI Pupils: Present: NONI - ENT ENT exam: Present: normal exam - Neck Neck exam: Present: normal inspection - Respiratory Respiratory exam: Present: clear to auscultation bilaterally. Absent: rhonchi, wheezes - Cardiovascular Cardiovascular exam: Present: regular rate and rhythm. Absent: gallop, rubs, systolic murmur - GI/Abdominal GI/Abdominal exam: Present: normal bowel sounds, soft. Absent: distended, firm , guarding, tenderness, rebound - Extremities Exam Extremities exam: Present: normal inspection. Absent: calf tenderness, edema Results - Labs CBC & BMP: 02/03/17 03:38 02/03/17 03:38 Lab Results: I have reviewed the past 24 hour labs
[2017-02-03] MEDS: CINACALCET 30 MG TABLET PO SCH (17:28)
[2017-02-03] MEDS: rOPINIRole 0.25 MG TABLET PO SCH (21:39)
[2017-02-03] MEDS: PRAVASTATIN 20 MG TABLET PO SCH (21:40)
[2017-02-04] MEDS: LEVOTHYROXINE 100 MCG TABLET PO SCH (06:37)
[2017-02-04 06:48] LABS: Calcium 7.8 MG/DL (8.5-10.1); Potassium 5.3 MMOL/L (3.5-5.1)
[2017-02-04] MEDS: CALCIUM ACETATE 667 MG CAPSULE PO SCH ×3 (07:52→16:35)
[2017-02-04] MEDS: CARVEDILOL 6.25 MG TABLET PO SCH ×2 (08:22→21:48)
[2017-02-04] MEDS: AZELASTINE NASAL 137 MCG/SPRAY 30 ML BOTTLE BOTH NARES SCH ×2 (08:22→21:49)
[2017-02-04] MEDS: amLODIPine 5 MG TABLET PO SCH (08:23)
[2017-02-04] MEDS: levETIRAcetam 500 MG TABLET PO SCH ×2 (08:23→21:48)
[2017-02-04] MEDS: sitaGLIPtin 25 MG TABLET PO SCH (08:23)
[2017-02-04] MEDS: clonazePAM 0.5 MG TABLET PO SCH ×3 (08:23→21:49)
[2017-02-04] MEDS: PANTOPRAZOLE 40 MG TABLET PO SCH (08:24)
[2017-02-04] MEDS: tiZANidine 4 MG TABLET PO SCH ×3 (08:24→21:48)
--- NOTE | 2017-02-04 08:43 | Gastrointestinal Progress Note ---
Assessment and Plan (1) Melena Status: Acute Current Visit: Yes (2) Coumadin toxicity Status: Resolved Current Visit: No Qualifiers: Injury intent: accidental or unintentional (3) Other specified counseling Status: Acute Current Visit: Yes Exam (Progress Note) - Constitutional Vitals: Period Temp Pulse Resp BP Sys/Vargas Pulse Ox Last 24 Hr 97.2 F-97.9 F 69-78 18-20 85-187/56-98 92-97 Results - Labs CBC & BMP: 02/04/17 08:56 02/04/17 05:20 Note Addendum: PLEASE NOTE -- automatic citation of patient information is unavoidable in this electronic note. I have made a reasonable effort to review the information cited , but it is not a part of my evaluation, impression, or recommendation unless specifically discussed in the dictated text that follows. As well, voice recognition software was used in the creation of this clinical note. Reasonable effort was made to identify and correct gross errors. Despite proofreading, errors in phys asst may be present, including nonsense verbiage at times. If you encounter such an error, please contact me at for discussion and correction. -- Dejan Chief complaint: melena Subjective: the patient is a 61-year-old female seen for follow-up of melena. The patient has one bowel movement documented overnight which was brown in color. She is otherwise without gastrointestinal complaints today. Medications: Tylenol, Duoneb, Norvasc, aspirin, phoslo, Coreg, Sensipar, Klonopin, Odell, Keppra, Synthroid, Remeron, Zofran, Protonix, Pravachol, Requip , Januvia, Zanaflex Review of Symptoms: 12 point review of symptoms was negative except as noted above Physical examination: Vital Signs: Current vital signs reviewed. General Appearance: well-appearing. Not acutely ill. Head: Normocephalic. Eyes: no scleral icterus. No scleral injection. No conjunctival pallor. Oral Cavity: Odor of breath was normal. No drooling was observed. Lips showed no abnormalities. Lungs: Respiration rhythm and depth was normal. Cardiovascular: Heart rate and rhythm were normal. Abdomen: abdomen was not distended. Abdominal auscultation revealed no abnormalities. Ascites was not discovered. Abdominal palpation revealed no tenderness and no hepatosplenomegaly. Musculoskeletal System: musculoskeletal system was grossly normal. Neurological: level of consciousness was normal. Speech was normal. No coordination/cerebellum abnormalities were noted. Skin: Gen. appearance was normal. Color and pigmentation were normal. No skin lesions were appreciated. Laboratory: INR 6.0 Radiology: reviewed with no pertinent changes noted. Impressions: 1. Melena -- I recommend continued monitoring of blood counts with further transfusion as indicated. I recommend deliberate reduction of INR to the greatest extent tolerable. I recommend continued proton pump inhibitor. We will need to pursue upper endoscopy with timing based on clinical progress but would prefer to have INR, at least, <2.5. While no absolute lower level is well supported in literature, attempted hemostasis of gastrointestinal bleeding sites with INR outside this range tends to be futile. 2. Iatrogenic coagulopathy -- as discussed above, continued coagulopathy is likely to precipitate further bleeding. I recommend deliberate reduction in INR with goal <2.5. 3. Other specified counseling -- Patient seen for greater than 30 minutes. Greater than 50% of this time was spent counseling regarding differential diagnosis, likely diagnosis,, diagnostic and therapeutic options, risks, benefits, and alternatives to procedures and medications, informed consent, and plan of care generally. Patient has expressed understanding and wishes to proceed. Recommendations: -- continued aggressive volume management -- continued monitoring of blood counts with further transfusion as indicated -- deliberate reduction of INR to the extent practicable -- endoscopic evaluation with hemostasis as indicated once INR is <2.5 -- we will continue to follow with you
[2017-02-04] MEDS: ONDANSETRON 4 MG/2 ML VIAL IM PRN (08:54)
[2017-02-04 09:16] LABS: Basophils % 0.2 % (0.0-0.8); Eosinophils # 0.2 10*3/uL (0.0-0.87); Eosinophils % 2.3 % (0.00-10.9); Hematocrit 24.2 VOL% (35.7-47.0); Hemoglobin 7.8 GM/DL (12.0-16.0); Immature Granulocytes % 0.3 %; Immature Granulocytes Absolute 0.02 #; Lymphocytes % 14.8 % (21.3-54.2); Mean Corpuscular HGB Conc 32.2 GM/DL (32-36); Mean Corpuscular Hemoglobin 32 PG (27-34); Mean Corpuscular Volume 99.2 FL (87-102); Mean Platelet Volume 11.1 FL (9.6-12.0); Monocytes # 0.3 10*3/uL (0.11-0.8); Monocytes % 5.2 % (1.7-12.7); Neutrophils # 5.1 10*3/uL (1.4-7.4); Neutrophils % 77.2 % (38.7-73.9); Platelet Count 118 T/CUMM (130-400); Red Blood Count 2.44 MC/CUMM (3.8-5.5); Red Cell Distribution Width 19.4 % (9.3-17.3); White Blood Count 6.5 T/CUMM (4-12)
[2017-02-04 09:45] LABS: Platelet Estimate Adequate
[2017-02-04] MEDS: ALBUTEROL/IPRATROPIUM 3 ML NEB RESP TX PRN (11:16)
[2017-02-04 11:47] LABS: PT Patient Result 71.6 SECS; Partial Thromboplastin Time 51.8 SECS (0-40)
--- NOTE | 2017-02-04 12:01 | Cardiology Consult Note ---
Assessment and Plan (1) Acute blood loss anemia Status: Acute Current Visit: Yes (2) CKD (chronic kidney disease) Status: Acute Current Visit: Yes (3) GI bleed Status: Acute Current Visit: Yes (4) Status post mechanical aortic valve replacement Status: Acute Current Visit: No (5) History of COPD Status: Chronic Current Visit: No (6) Coumadin toxicity Status: Resolved Assessment and plan: This patient will require very frequent INR measurements to maintain her at 2.5- 3.5. With her history of bleeding were going to need to keep her close to 2.5. Current Visit: No Qualifiers: Injury intent: accidental or unintentional History of Present Illness - Data of Consult Patient: known to practice within the last 3 years - Consult Narrative Reason for consult: History aortic valve replacement single-vessel bypass History of present illness: Ms. Betancourt is a 61 year old female who was recently discharged from the hospital on 01/31/17 she was being treated for supratherapeutic INR and anemia. Patient is on chronic hemodialysis. She think became anxious and presented to the hospital with complaints of dyspnea. She was noted to have an INR 5 when she presented this time. She has evidence of GI bleed and this will be evaluated this admission. She is going to need to have very close follow-up of her INR. CC: Janelle Miller MD - Home Medications and Allergies Home Medications: Home Medications Medication Instructions Recorded Confirmed Type Azelastine HCl [Azelastine 0.1% 1 spray BOTH NARES BID 04/04/16 02/01/17 History Nasal [place]] Budesonide/Formoterol 160-4.5 1 puff INH BID 04/04/16 02/01/17 History [Symbicort 160-4.5] Calcium Acetate [Phoslo] 667 mg PO TID W/MEALS 04/04/16 02/01/17 History Cinacalcet HCl [Sensipar] 60 mg PO DAILY W/SUPPER 04/04/16 02/01/17 History Fluticasone 50 Mcg Nasal [place] 1 spray BOTH NARES DAILY 04/04/16 02/01/17 History [Flonase Nasal [place]] Levothyroxine Tab [Synthroid Tab] 50 mcg PO DAILY@0700 04/04/16 02/01/17 History Linagliptin [Tradjenta] 5 mg PO DAILY 04/04/16 02/01/17 History Mirtazapine [Remeron] 15 mg PO BEDTIME PRN 04/04/16 02/01/17 History Pantoprazole Tab [Protonix Tab] 40 mg PO BID 04/04/16 02/01/17 History Pravastatin [Pravachol] 20 mg PO BEDTIME 04/04/16 02/01/17 History Promethazine Liquid [Phenergan 25 mg PO Q6H 04/04/16 02/01/17 History Liquid] Promethazine Tab [Phenergan Tab] 25 mg PO Q6H PRN 04/04/16 02/01/17 History Ropinirole HCl [Requip] 0.5 mg PO BEDTIME 04/04/16 02/01/17 History clonazePAM [Klonopin] 1 mg PO TID 04/04/16 02/01/17 History levETIRAcetam TAB [Keppra Tab] 500 mg PO BID 04/04/16 02/01/17 History tiZANidine [Zanaflex] 4 mg PO TID 04/04/16 02/01/17 History Carvedilol [Coreg] 6.25 mg PO BID #60 tablet 01/30/17 02/01/17 Rx Fluticasone/Salmeterol 250-50 1 puff INH BID #1 01/30/17 02/01/17 Rx [Advair 250-50] Warfarin [Coumadin] 7.5 mg PO DAILY@1800 #30 tablet 01/30/17 02/01/17 Rx amLODIPine [Norvasc] 5 mg PO DAILY #30 tablet 01/30/17 02/01/17 Rx predniSONE TAB [PredniSONE] 20 mg PO DAILY #7 tablet 01/30/17 02/01/17 Rx Allergies/Adverse Reactions: Allergies Allergy/AdvReac Type Severity Reaction Status Date / Time Iodinated Contrast Media - Allergy RASH Verified 01/22/17 01:00 Oral and [Iodinated Contrast Media - IV Dye] Penicillins Allergy ANAPHYLAXIS Verified 01/22/17 01:00 aspirin AdvReac Nausea Verified 01/22/17 01:00 cephalexin [From Keflex] AdvReac Vomiting Verified 01/22/17 01:00 Sulfa (Sulfonamide AdvReac Vomiting Verified 01/22/17 01:00 Antibiotics) Medical,Surgical,& Family Hx - Medical History Cardio: History of: CAD (question of bypass surgery with recent cardiac surgery. ), Valvular Heart Disease (has had recent aortic valve replacement), Cardiovascular Problems (impression recent aortic issue.) Psychological: History of: Anxiety Disorders, Depression Neurology: History of: Peripheral Neuropathy (FEET/TOES), Vertigo Endocrine: History of: Diabetes Mellitus (IDDM) Respiratory: History of: Asthma, COPD Renal: History of: Renal Failure Gastrointestinal: History of: GERD (on dialysis), Gastrointestinal Bleed Hematology: History of: Bleeding Problems (high inr), Clotting Problems (pt states she had a clot "three or four years ago") No history of: Blood Transfusion Reaction Other: History of: Miscellaneous Medical Problems (Sinus surgery) No history of: Anesthesia Reactions - Surgical History Cardiac Surgeries: Sugical HX of: Cardiac Catheterization (NO STENTS PLACE, NO HEART DISEASE NOTED) Thoracic Surgeries: Patient denies;: Organ Transplant HEENT Surgeries: Surgical HX of: Tonsilectomy & Adenoidectomy Abdominal Surgeries: Surgical HX of: Abdominal Surgery (COLON REMOVED), Cholecystectomy Reproductive Surgeries: Surgical HX of;: Gynecologic Surgery, Hysterectomy - Family History Family History: Reports;: Family Heart Disease, Family Hypertension - Social History Smoking Status: Former smoker Frequency of Alcohol Use: None Type of Drug Use: None Physical Examination Vital Signs Temp Pulse Resp BP Pulse Ox 98.8 F 85 20 129/85 94 L 02/01/17 23:26 02/01/17 23:26 02/01/17 23:26 02/01/17 23:26 02/01/17 23:26 Other: General:no acute distress. alert and oriented, mood and affect are normal HEENT: no new lesions, sclerae are clear, mouth and pharynx benign Neck: supple, trachea midline, no JVD noted Lungs: no rales ronchi or wheeze is noted. pt comfortable without accesory muscle use to assist with breathing CV: RRR no rub or gallop is noted. Metallic valve sounds are normal. There is no diastolic or systolic murmur noted. Abd: soft and nontender, BSNA, no masses. Ext: no cyanosis, clubbing or edema Neuro: grossly intact without focal neurologic deficit. Result/EKG - Labs CBC & BMP: 02/04/17 08:56 02/04/17 05:20 Labs: Laboratory Results - last 24 hr 02/03/17 02/04/17 02/04/17 15:39 05:20 07:26 WBC RBC Hgb Hct MCV MCH MCHC RDW Plt Count MPV Neut % (Auto) Lymph % (Auto) [place] % (Auto) Eos % (Auto) Baso % (Auto) Neut # (Auto) Lymph # (Auto) [place] # (Auto) Eos # (Auto) Baso # (Auto) Immature Gran % Nucleated RBC % Immature Gran # Nucleated RBCs # Platelet Estimate Morphology Comment INR PT Patient/Control Mix Circ Anticoag PTT Sodium 136 Potassium 5.3 H Chloride 101 Carbon Dioxide 25 Anion Gap 15.3 H BUN 58 H Creatinine 5.40 H GFR Calculation 8 BUN/Creatinine Ratio 10.00 Glucose 85 POC Glucose 111 H 104 Calculated Osmolality 286.0 Calcium 7.8 L 02/04/17 02/04/17 08:56 11:08 WBC 6.5 RBC 2.44 L Hgb 7.8 L Hct 24.2 L MCV 99.2 MCH 32 MCHC 32.2 RDW 19.4 H Plt Count 118 L MPV 11.1 Neut % (Auto) 77.2 H Lymph % (Auto) 14.8 L [place] % (Auto) 5.2 Eos % (Auto) 2.3 Baso % (Auto) 0.2 Neut # (Auto) 5.1 Lymph # (Auto) 1.0 L [place] # (Auto) 0.3 Eos # (Auto) 0.2 Baso # (Auto) 0.0 Immature Gran % 0.3 Nucleated RBC % 0.0 Immature Gran # 0.02 Nucleated RBCs # 0.00 Platelet Estimate Adequate Morphology Comment INR 6.0 H* PT Patient/Control Mix 71.6 Circ Anticoag PTT 51.8 H Sodium Potassium Chloride Carbon Dioxide Anion Gap BUN Creatinine GFR Calculation BUN/Creatinine Ratio Glucose POC Glucose Calculated Osmolality Calcium
[2017-02-04] MEDS: ACETAMINOPHEN 325 MG TABLET PO PRN (13:35)
--- NOTE | 2017-02-04 14:33 | Hospitalist Progress Note ---
Assessment and Plan - Time spent with patient Time spent with patient: Greater than 30 minutes (1) Acute blood loss anemia Status: Acute Assessment and plan: Continue serial hemoglobins. GI involved. Tranfusions prn. Current Visit: Yes (2) GI bleed Status: Acute Assessment and plan: See above. Current Visit: Yes (3) ESRD on dialysis Status: Chronic Assessment and plan: Nephrology on board. Current Visit: Yes (4) History of mitral valve replacement with mechanical valve Status: Chronic Assessment and plan: Holding coumadin. INR supratherapeutic. Current Visit: Yes (5) Coumadin toxicity Status: Resolved Assessment and plan: INR at 6. Holding coumadin. Current Visit: No Qualifiers: Injury intent: accidental or unintentional (6) Hyperkalemia Problem details: HD today. Dietary education. Status: Acute Assessment and plan: Defer to nephrology. Current Visit: No Hospitalist: Subjective Interval history: She has no complaints or overnight events. Exam - Constitutional Vitals: Period Temp Pulse Resp BP Sys/Vargas Pulse Ox Last 24 Hr 97.2 F-97.9 F 68-92 18-21 85-148/56-87 92-98 General appearance: no acute distress - Head Head exam: Present: normocephalic, atraumatic - Eye Eye exam: Present: EOMI Pupils: Present: NONI - ENT ENT exam: Present: normal exam - Neck Neck exam: Present: normal inspection - Respiratory Respiratory exam: Present: clear to auscultation bilaterally. Absent: rhonchi, wheezes - Cardiovascular Cardiovascular exam: Present: regular rate and rhythm, systolic murmur. Absent : gallop, rubs - GI/Abdominal GI/Abdominal exam: Present: normal bowel sounds, soft. Absent: distended, firm , guarding, tenderness, rebound - Extremities Exam Extremities exam: Present: normal inspection. Absent: calf tenderness, edema Results - Labs CBC & BMP: 02/04/17 08:56 02/04/17 05:20 Lab Results: I have reviewed the past 24 hour labs
--- NOTE | 2017-02-04 15:40 | Nephrology Progress Note ---
Nephrology - PN: Subj Interval history: No further melena. No shortness of breath Exam (PN)-Nephrology - Vital Signs Vital signs: Period Temp Pulse Resp BP Sys/Vargas Pulse Ox Last 24 Hr 97.2 F-97.9 F 68-92 18-21 85-148/56-87 92-98 Exam: ENT: Normal Cardiovascular: Regular rate and rhythm. No murmur rub or gallop Lungs: Clear Extremities: 1+ edema - Lab 02/04/17 08:56 02/04/17 05:20 Most recent lab results Calcium 7.8 MG/DL (8.5-10.1) L 02/04/17 05:20 Magnesium 1.9 MG/DL (1.8-2.4) 02/03/17 03:38 Assessment and Plan (1) ESRD on dialysis Status: Chronic Assessment and plan: 61-year-old woman with: * ESRD. Dialysis tomorrow * GI bleed. Hematocrit stable * Coumadin toxicity. * Prosthetic mitral valve Current Visit: Yes (2) GI bleed Status: Acute Current Visit: Yes (3) Symptomatic anemia Status: Acute Current Visit: Yes (4) History of mitral valve replacement with mechanical valve Status: Chronic Current Visit: Yes (5) Pulmonary hypertension Status: Chronic Current Visit: Yes
[2017-02-04] MEDS: CINACALCET 30 MG TABLET PO SCH (16:35)
[2017-02-04] MEDS: PRAVASTATIN 20 MG TABLET PO SCH (21:48)
[2017-02-04] MEDS: rOPINIRole 0.25 MG TABLET PO SCH (21:49)
[2017-02-05] MEDS ORDERED: clonazePAM 0.5 MG TABLET PO ONE (04:23)
[2017-02-05] MEDS: LEVOTHYROXINE 100 MCG TABLET PO SCH (06:08)
[2017-02-05 06:48] LABS: Basophils % 0.3 % (0.0-0.8); Eosinophils # 0.1 10*3/uL (0.0-0.87); Eosinophils % 2.4 % (0.00-10.9); Hematocrit 21.5 VOL% (35.7-47.0); Hemoglobin 7.1 GM/DL (12.0-16.0); Immature Granulocytes % 0.5 %; Immature Granulocytes Absolute 0.03 #; Lymphocytes # 1.1 10*3/uL (1.4-4.0); Lymphocytes % 19.7 % (21.3-54.2); Mean Corpuscular Hemoglobin 32 PG (27-34); Mean Corpuscular Volume 96.4 FL (87-102); Mean Platelet Volume 10.6 FL (9.6-12.0); Monocytes # 0.4 10*3/uL (0.11-0.8); Monocytes % 6.5 % (1.7-12.7); Neutrophils % 70.6 % (38.7-73.9); Platelet Count 107 T/CUMM (130-400); Red Blood Count 2.23 MC/CUMM (3.8-5.5); Red Cell Distribution Width 18.8 % (9.3-17.3); White Blood Count 5.7 T/CUMM (4-12)
[2017-02-05 07:09] LABS: PT Patient Result 64.9 SECS
[2017-02-05 07:10] LABS: INR 5.5
--- NOTE | 2017-02-05 07:17 | EKG Report ---
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
[2017-02-05 07:20] LABS: Calcium 7.2 MG/DL (8.5-10.1); Osmolality,Calculated 290.8 MOS/KG (273-304); Potassium 4.9 MMOL/L (3.5-5.1)
[2017-02-05] MEDS: sitaGLIPtin 25 MG TABLET PO SCH (08:49)
[2017-02-05] MEDS: CARVEDILOL 6.25 MG TABLET PO SCH ×2 (08:49→21:16)
[2017-02-05] MEDS: levETIRAcetam 500 MG TABLET PO SCH ×2 (08:49→21:16)
[2017-02-05] MEDS: tiZANidine 4 MG TABLET PO SCH ×3 (08:49→21:17)
[2017-02-05] MEDS: CALCIUM ACETATE 667 MG CAPSULE PO SCH ×3 (08:49→17:11)
[2017-02-05] MEDS: PANTOPRAZOLE 40 MG TABLET PO SCH (08:49)
[2017-02-05] MEDS: amLODIPine 5 MG TABLET PO SCH (08:49)
[2017-02-05] MEDS: AZELASTINE NASAL 137 MCG/SPRAY 30 ML BOTTLE BOTH NARES SCH ×2 (08:49→21:16)
[2017-02-05] MEDS: clonazePAM 0.5 MG TABLET PO SCH ×3 (10:00→21:16)
[2017-02-05] MEDS: ALBUTEROL/IPRATROPIUM 3 ML NEB RESP TX PRN (11:08)
--- NOTE | 2017-02-05 11:26 | Cardiology Progress Note ---
Angelo Crow Vanessa, RN, am scribing for, and in the presence of, Karen Wong MD 11:24. Assessment and Plan - Time spent with patient Time spent with patient: Greater than 30 minutes (1) Hx of mechanical aortic valve replacement Status: Chronic Assessment and plan: SEE PLAN OF CARE LISTED BELOW. Current Visit: Yes (2) GI bleed Status: Acute Assessment and plan: SEE PLAN OF CARE LISTED BELOW. Current Visit: Yes (3) Symptomatic anemia Status: Acute Assessment and plan: SEE PLAN OF CARE LISTED BELOW. Current Visit: Yes (4) History of COPD Status: Chronic Assessment and plan: SEE PLAN OF CARE LISTED BELOW. Current Visit: No (5) Coumadin toxicity Status: Acute Assessment and plan: SEE PLAN OF CARE LISTED BELOW. Current Visit: No Qualifiers: Injury intent: accidental or unintentional (6) Pulmonary hypertension Status: Chronic Assessment and plan: SEE PLAN OF CARE LISTED BELOW. Current Visit: Yes (7) ESRD on dialysis Status: Chronic Assessment and plan: SEE PLAN OF CARE LISTED BELOW. Current Visit: Yes (8) Dietary noncompliance Problem details: Dietary to provide handout of high potassium containing foods to avoid. Status: Chronic Assessment and plan: SEE PLAN OF CARE LISTED BELOW. 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 CIPRIANO MCCARTHY CARDIOLOGY NOTE: COUMADIN TOXICITY, RECENT MECHANICAL AORTIC VALVE REPLACEMENT, MECHANICAL MITRAL VALVE REPLACEMENT, AND CABG x 1 SUMMARY: Ms. Betancourt is a 61-year-old white female with risk significant for: Hypertension , hyperlipidemia, diabetes, former tobacco use. Past medical history includes end-stage renal disease with hemodialysis, COPD, peripheral neuropathy, congestive heart failure, and anemia with GI bleeding. In November 2016, she underwent coronary artery bypass grafting 1 and mechanical aortic valve replacement at [facility]. Patient was just recently discharged on 01/30 after admission for supratherapeutic INR of 18 and acute blood loss anemia. Patient received packed red blood cells and FFP, and Coumadin was able to be resumed and dosage adjusted for therapeutic INR 2.5- 3.5. Time of discharge, her INR was 2.6 without further signs of blood. Patient presented to the ED on the evening of 02/01 with edema, melena, anemia with H/H of 6.6 & 20.7 INR was supratherapeutic 4.6. She has been transfused 2 units packed blood cells this admission. Gastroenterology has consulted, endoscopy is planned when INR is less than 2.5. Sinus rhythm per tele monitoring with pulse rate 70s. BP borderline low at times with SBP no less than 85. Currently 120/70. She is awake and alert, and denies chest pain or discomfort. INR 5.5. H/H is noted at 7 & 21. She does admit to some shortness of breath this morning. Reports that she feels depressed this morning over recurrent bleeding, and after discussing her condition/treatment, she appears to feel somewhat better. ASSESSMENT/PLAN: 1. HISTORY OF MECHANICAL AORTIC VALVE AND MECHANICAL MITRAL VALVE - Supratherapeutic INR greater than 5 at admission. 2. CHRONIC ANTICOAGULATION WITH COUMADIN - 3. GI BLEED - Reports melena. Gastroenterology has been consulted, and patient will be evaluated by endoscopy once INR less than 2.5. 4. HYPERTENSION - Blood pressure borderline low at times but overall fairly well controlled. 5. END STAGE RENAL DISEASE, HEMODIALYSIS 6. ANEMIA - Continue to monitor closely. Transfuse as needed. 7. CAD WITH RECENT CABG - Clinically, patient is without findings for ACS at this time. 8. HISTORY OF COPD - This appears to be stable at this time. Exam (Progress Note) - Constitutional Vitals: Period Temp Pulse Resp BP Sys/Vargas Pulse Ox Last 24 Hr 97.0 F-97.3 F 68-92 18-21 96-133/53-70 94-98 Exam: General appearance: normal weight, no acute distress - Head Head exam: Present: normal inspection, normocephalic, atraumatic. Absent: hematoma, laceration - Eye Eye exam: Present: EOMI. Absent: conjunctival injection, nystagmus, periorbital swelling, scleral icterus, laceration to eyelids Pupils: Present: PERRL. Absent: constricted, dilated, fixed, irregular, unequal - ENT ENT exam: Present: normal exam, normal external ear exam - Neck Neck exam: Present: normal inspection. Absent: lymphadenopathy, meningismus, tenderness, thyromegaly - Respiratory Respiratory exam: Present: clear to auscultation bilaterally. Absent: accessory muscle use, chest wall tenderness - Cardiovascular Cardiovascular exam: Present: regular rate and rhythm, mechanical S1 and S2. Absent: carotid bruit, gallop, JVD, rubs - GI/Abdominal GI/Abdominal exam: Present: normal bowel sounds, soft. Absent: distended, firm , guarding, hernia, mass, tenderness, rebound. - Extremities Exam Extremities exam: Present: Ecchymosis throughout bilateral upper extremities, normal capillary refill. Absent: calf tenderness, edema - Back Exam Back exam: Present: normal inspection. Absent: muscle spasm, vertebral tenderness - Neurological Exam Neurological exam: Present: alert, oriented X3, grossly intact without resting or intention tremor - Psychiatric Psychiatric exam: Present: normal affect, depressed mood - Skin Skin exam: Present: Ecchymosis throughout the bilateral upper extremities and chest wall, warm, dry, intact. Absent: cyanosis, diaphoretic, rash, urticaria Result/EKG - Labs CBC & BMP: 02/05/17 06:36 02/05/17 06:36 Lab Results: I have reviewed the past 24 hour labs Labs: Laboratory Results - last 24 hr 02/04/17 02/04/17 02/04/17 08:56 11:08 11:14 WBC 6.5 RBC 2.44 L Hgb 7.8 L Hct 24.2 L MCV 99.2 MCH 32 MCHC 32.2 RDW 19.4 H Plt Count 118 L MPV 11.1 Neut % (Auto) 77.2 H Lymph % (Auto) 14.8 L Bibb % (Auto) 5.2 Eos % (Auto) 2.3 Baso % (Auto) 0.2 Neut # (Auto) 5.1 Lymph # (Auto) 1.0 L Bibb # (Auto) 0.3 Eos # (Auto) 0.2 Baso # (Auto) 0.0 Immature Gran % 0.3 Nucleated RBC % 0.0 Immature Gran # 0.02 Nucleated RBCs # 0.00 Platelet Estimate Adequate Morphology Comment INR 6.0 H* PT Patient/Control Mix 71.6 Circ Anticoag PTT 51.8 H Sodium Potassium Chloride Carbon Dioxide Anion Gap BUN Creatinine GFR Calculation BUN/Creatinine Ratio Glucose POC Glucose 129 H Calculated Osmolality Calcium 02/04/17 02/05/17 02/05/17 15:27 06:36 06:36 WBC RBC Hgb Hct MCV MCH MCHC RDW Plt Count MPV Neut % (Auto) Lymph % (Auto) Bibb % (Auto) Eos % (Auto) Baso % (Auto) Neut # (Auto) Lymph # (Auto) Bibb # (Auto) Eos # (Auto) Baso # (Auto) Immature Gran % Nucleated RBC % Immature Gran # Nucleated RBCs # Platelet Estimate Morphology Comment INR 5.5 H* PT Patient/Control Mix 64.9 Circ Anticoag PTT 56.0 H Sodium 137 Potassium 4.9 Chloride 102 Carbon Dioxide 24 Anion Gap 15.9 H BUN 67 H Creatinine 6.60 H GFR Calculation 7 BUN/Creatinine Ratio 10.00 Glucose 80 POC Glucose 128 H Calculated Osmolality 290.8 Calcium 7.2 L 02/05/17 06:36 WBC 5.7 RBC 2.23 L Hgb 7.1 L Hct 21.5 L MCV 96.4 MCH 32 MCHC 33.0 RDW 18.8 H Plt Count 107 L MPV 10.6 Neut % (Auto) 70.6 Lymph % (Auto) 19.7 L Bibb % (Auto) 6.5 Eos % (Auto) 2.4 Baso % (Auto) 0.3 Neut # (Auto) 4.0 Lymph # (Auto) 1.1 L Bibb # (Auto) 0.4 Eos # (Auto) 0.1 Baso # (Auto) 0.0 Immature Gran % 0.5 Nucleated RBC % 0.0 Immature Gran # 0.03 Nucleated RBCs # 0.00 Platelet Estimate Morphology Comment INR PT Patient/Control Mix Circ Anticoag PTT Sodium Potassium Chloride Carbon Dioxide Anion Gap BUN Creatinine GFR Calculation BUN/Creatinine Ratio Glucose POC Glucose Calculated Osmolality Calcium - Diagnostic Findings Procedure: Chest x-ray: image reviewed by me, report reviewed by me - EKG EKG results: interpreted by me, no acute changes EKG shows: sinus rhythm Marvin Crow Jennifer, MD, personally performed the services described in this documentation, ascribed by Jolynn Stephens RN in my presence, and it is both accurate and complete 126 .
--- NOTE | 2017-02-05 12:17 | Gastrointestinal Progress Note ---
Assessment and Plan (1) Melena Status: Acute Assessment and plan: 02/05-no further reports of melena, hematochezia. INR remains at 5.5, hemoglobin 7.1. Continue to monitor for any overt bleeding. Continue to monitor serial H&H. Plan an addendum to followed by Dr. Luke. 02/02-reports of melena daily for several months. History of anemia with recent blood transfusion and inpatient stay. Hemoglobin now 6.1 and being transfused 2 units packed red blood cells. On Coumadin therapy for history of mitral valve replacement with INR 4.6 on admission. 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 Plan an addendum to followed by Dr. Luke. Current Visit: Yes Gastroenterology - PN: Subj Interval history: CC: Anemia Patient is seen awake and alert lying in bed. States she is feeling weak today. She denies any overt bleeding. Denies any melena or hematochezia and is reported to have had brown stools on yesterday. Abdomen is soft, nontender. INR is noted to still be elevated at 5.5. Hemoglobin is at 7.1. She has received a total of 2 units of packed red blood cells since admission. ROS: Denies shortness of breath or chest pain Exam (Progress Note) - Constitutional Vitals: Period Temp Pulse Resp BP Sys/Vargas Pulse Ox Last 24 Hr 97.0 F-97.3 F 69-78 20-20 96-121/53-70 94-97 General appearance: normal weight, no acute distress - Head Head exam: Present: normal inspection, normocephalic - Eye Eye exam: Present: other (Lids and conjunctive are unremarkable). Absent: scleral icterus - ENT ENT exam: Present: normal exam, normal oropharynx - Neck Neck exam: Present: normal inspection - Respiratory Respiratory exam: Present: clear to auscultation bilaterally. Absent: rales, rhonchi, wheezes - Cardiovascular Cardiovascular exam: Present: regular rate and rhythm. Absent: diastolic murmur , JVD, systolic murmur - GI/Abdominal GI/Abdominal exam: Present: normal bowel sounds, soft. Absent: ascites, distended, mass, organomegaly, tenderness - Extremities Exam Extremities exam: Present: normal inspection, full ROM - Back Exam Back exam: Present: normal inspection - Neurological Exam Neurological exam: Present: alert, oriented X3 - Psychiatric Psychiatric exam: Present: normal affect, normal mood - Skin Skin exam: Present: normal color, warm, dry Results - Labs CBC & BMP: 02/05/17 06:36 02/05/17 06:36 Lab Results: I have reviewed the past 24 hour labs
[2017-02-05] MEDS: DESITIN 4OZ/NYSTATIN 15 GRAM MIXTURE PASTE TOP SCH ×2 (13:00→21:17)
[2017-02-05] MEDS ORDERED: SODIUM CHLORIDE 0.9% 250 ML IV PRN (13:17)
--- NOTE | 2017-02-05 13:17 | Hospitalist Progress Note ---
Assessment and Plan - Time spent with patient Time spent with patient: Greater than 30 minutes (1) Respiratory distress Status: Acute Assessment and plan: Obtain cxray. Transfer to the ICU for closer observation. Obtain ABG. Current Visit: Yes (2) Acute blood loss anemia Status: Acute Assessment and plan: Hemoglobin 7.1 today. Continue serial hemoglobins. GI involved. Tranfusions 2 units pRBC. Current Visit: Yes (3) Symptomatic anemia Status: Acute Assessment and plan: With weakness, transfuse now. Current Visit: Yes (4) GI bleed Status: Acute Assessment and plan: See above. Current Visit: Yes (5) ESRD on dialysis Status: Chronic Assessment and plan: Nephrology on board. Current Visit: Yes (6) History of mitral valve replacement with mechanical valve Status: Chronic Assessment and plan: Holding coumadin. INR supratherapeutic. Current Visit: Yes (7) Coumadin toxicity Status: Acute Assessment and plan: INR down to 5.5. Holding coumadin. Current Visit: No Qualifiers: Injury intent: accidental or unintentional Hospitalist: Subjective Interval history: Ms Betancourt is very lethargic, and appears extremely weak today. She has moderate to severe conversational dyspnea and this is all new. Hemoglobin is lower today at 7.1. I made the decision to transfer to the ICU for closer observation in case her condition deteriorates. Exam - Constitutional Vitals: Period Temp Pulse Resp BP Sys/Vargas Pulse Ox Last 24 Hr 97.0 F-97.3 F 69-78 20-20 96-121/53-70 94-97 General appearance: no acute distress, mild distress - Head Head exam: Present: normal inspection, normocephalic, atraumatic - Eye Eye exam: Present: EOMI Pupils: Present: NONI - ENT ENT exam: Present: normal exam - Neck Neck exam: Present: normal inspection - Respiratory Respiratory exam: Present: clear to auscultation bilaterally. Absent: rhonchi, wheezes - Cardiovascular Cardiovascular exam: Present: regular rate and rhythm, systolic murmur. Absent : gallop, rubs - GI/Abdominal GI/Abdominal exam: Present: normal bowel sounds, soft. Absent: distended, firm , guarding, tenderness, rebound - Extremities Exam Extremities exam: Present: normal inspection. Absent: calf tenderness, edema Results - Labs CBC & BMP: 02/05/17 06:36 02/05/17 06:36 Lab Results: I have reviewed the past 24 hour labs
--- NOTE | 2017-02-05 13:57 | XRay Report ---
History: Respiratory distress Date: 02/05/2017 Study: Chest x-ray AP portable Comparison exam: February 02, 2017 There is continued cardiomegaly. The pulmonary vasculature is slightly prominent. The mediastinal contours are unchanged. There is patchy and hazy edema/infiltrate in the lower lungs, slightly increased. There is mild layering pleural effusion on the right. Osseous structures are unchanged. Impression: Continued pulmonary edema, perhaps minimally worsened PROCEDURE INTERPRETED AT [facility] DEPARTMENT OF RADIOLOGY Final Report Signed by: Dr. Jenna Luke
[2017-02-05 14:30] LABS: ABG Base Excess -0.5 MMOL/L (-2.5-2.5); ABG Oxygen Saturation 94.5 % (95-100); ABG PCO2 36.9 MM HG (35-48); ABG PH 7.417 (7.35-7.45); ABG PO2 72.3 MM HG (80-95); ABG TCO2 22.6 MMOL/L (23-27)
--- NOTE | 2017-02-05 15:52 | Nephrology Progress Note ---
Nephrology - PN: Subj Interval history: Patient seen on hemodialysis, she is tolerating this well she is getting 2 units packed red blood cells, her UF goal is to KG's her systolic blood pressures around 160 presently. The patient states she noticed some blood in her bowel movements yesterday. The patient's INR is 5 Assessment/plan 1. End-stage renal disease-continue hemodialysis 2. GI bleed management per GI medicine 3. Volume overload-we are going to try and remove some fluid today 4. Pulmonary hypertension Exam (PN)-Nephrology - Vital Signs Vital signs: Period Temp Pulse Resp BP Sys/Vargas Pulse Ox Last 24 Hr 97.0 F-98.0 F 69-77 17-26 79-162/52-78 95-99 - Lab 02/05/17 06:36 02/05/17 06:36 Most recent lab results ABG pH 7.417 (7.35-7.45) 02/05/17 14:25 ABG pCO2 36.9 MM HG (35-48) 02/05/17 14:25 ABG pO2 72.3 MM HG (80-95) L 02/05/17 14:25 ABG HCO3 24.0 MMOL/L (20-26) 02/05/17 14:25 ABG O2 Saturation 94.5 % (95-100) L 02/05/17 14:25 Calcium 7.2 MG/DL (8.5-10.1) L 02/05/17 06:36 Magnesium 1.9 MG/DL (1.8-2.4) 02/03/17 03:38 Assessment and Plan (1) ESRD on dialysis Status: Chronic Assessment and plan: We will plan on hemodialysis today we will try ultrafilter some of the excess fluid in her body as she tolerates, hopefully the blood transfusions during dialysis will allow us to remove some of the excess fluid Current Visit: Yes (2) Volume overload Status: Acute Assessment and plan: This patient's main complaint was swelling in the past few days since she has been discharged. 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 Patient is also been started on amlodipine recently which may be contributing to some of her lower extremity swelling, her blood loss anemia may also be increasing her fluid extravasation and subsequent swelling. Current Visit: Yes (3) GI bleed Status: Acute Assessment and plan: This patient has been having some black tarry stools her hematocrit is fallen around 19% from around 29% at the time of her recent discharge a few days ago. GI medicine has been consulted Current Visit: Yes (4) Melena Status: Acute Current Visit: Yes (5) Symptomatic anemia Status: Acute Current Visit: Yes (6) History of mitral valve replacement with mechanical valve Status: Chronic Current Visit: Yes (7) Pulmonary hypertension Status: Chronic Current Visit: Yes (8) Anemia Status: Acute Current Visit: No Qualifiers: Other causes of anemia: acute posthemorrhagic (9) Diarrhea Status: Chronic Current Visit: No (10) History of COPD Status: Chronic Current Visit: No (11) Coumadin toxicity Status: Acute Current Visit: No Qualifiers: Injury intent: accidental or unintentional
[2017-02-05] MEDS: CINACALCET 30 MG TABLET PO SCH (17:11)
[2017-02-05] MEDS ORDERED: PHYTONADIONE 5 MG TABLET PO ONE (19:43)
[2017-02-05 20:28] LABS: Hematocrit 28.4 VOL% (35.7-47.0); Hemoglobin 8.9 GM/DL (12.0-16.0)
[2017-02-05] MEDS: PRAVASTATIN 20 MG TABLET PO SCH (21:16)
[2017-02-05] MEDS: rOPINIRole 0.25 MG TABLET PO SCH (21:17)
[2017-02-05] MEDS: MIRTAZAPINE 15 MG TABLET PO PRN (23:40)
[2017-02-06] MEDS: ONDANSETRON 4 MG/2 ML VIAL IM PRN (02:03)
[2017-02-06 06:02] LABS: Basophils % 0.3 % (0.0-0.8); Eosinophils # 0.1 10*3/uL (0.0-0.87); Eosinophils % 1.9 % (0.00-10.9); Hematocrit 26.9 VOL% (35.7-47.0); Hemoglobin 8.9 GM/DL (12.0-16.0); Immature Granulocytes % 0.7 %; Immature Granulocytes Absolute 0.04 #; Lymphocytes % 16.9 % (21.3-54.2); Mean Corpuscular HGB Conc 33.1 GM/DL (32-36); Mean Corpuscular Hemoglobin 31 PG (27-34); Mean Corpuscular Volume 94.1 FL (87-102); Monocytes # 0.3 10*3/uL (0.11-0.8); Monocytes % 5.7 % (1.7-12.7); Neutrophils # 4.4 10*3/uL (1.4-7.4); Neutrophils % 74.5 % (38.7-73.9); Platelet Count 109 T/CUMM (130-400); Red Blood Count 2.86 MC/CUMM (3.8-5.5); Red Cell Distribution Width 18.4 % (9.3-17.3); White Blood Count 5.9 T/CUMM (4-12)
[2017-02-06] MEDS: LEVOTHYROXINE 100 MCG TABLET PO SCH (06:09)
[2017-02-06 06:12] LABS: INR 2.7
[2017-02-06 06:23] LABS: PT Patient Result 30.2 SECS
[2017-02-06 06:36] LABS: Calcium 7.9 MG/DL (8.5-10.1); Magnesium 1.8 MG/DL (1.8-2.4); Osmolality,Calculated 282.5 MOS/KG (273-304); Potassium 4.2 MMOL/L (3.5-5.1)
[2017-02-06] MEDS ORDERED: ALBUTEROL/IPRATROPIUM 3 ML NEB RESP TX ONE (06:52)
--- NOTE | 2017-02-06 06:52 | Nephrology Progress Note ---
Nephrology - PN: Subj Interval history: Patient feels better this morning. She had 2 units packed red blood cells yesterday. She complains of some wheezing in her chest and is requesting a breathing treatment. Review of systems GI she denies nausea or vomiting Physical exam general the patient is in no acute distress, she has no pretibial edema Assessment/plan 1. End-stage renal disease-we will continue hemodialysis support 2. Anemia-patient's hematocrit is around 27% this morning after being down to 21% yesterday morning, she is status post 2 units of PRBCs 3. Coumadin toxicity-this patient's INR is improved at 2.7 after getting vitamin K yesterday 4. Pulmonary wheeze-patient's lungs are clear on my exam I will order a breathing treatment. Exam (PN)-Nephrology - Vital Signs Vital signs: Period Temp Pulse Resp BP Sys/Vargas Pulse Ox Last 24 Hr 97.3 F-98.5 F 66-83 14-26 79-169/52-79 90-99 - Lab 02/06/17 05:01 02/06/17 05:01 Most recent lab results ABG pH 7.417 (7.35-7.45) 02/05/17 14:25 ABG pCO2 36.9 MM HG (35-48) 02/05/17 14:25 ABG pO2 72.3 MM HG (80-95) L 02/05/17 14:25 ABG HCO3 24.0 MMOL/L (20-26) 02/05/17 14:25 ABG O2 Saturation 94.5 % (95-100) L 02/05/17 14:25 Calcium 7.9 MG/DL (8.5-10.1) L 02/06/17 05:01 Magnesium 1.8 MG/DL (1.8-2.4) 02/06/17 05:01 Assessment and Plan (1) ESRD on dialysis Status: Chronic Assessment and plan: We will plan on hemodialysis today we will try ultrafilter some of the excess fluid in her body as she tolerates, hopefully the blood transfusions during dialysis will allow us to remove some of the excess fluid Current Visit: Yes (2) Volume overload Status: Acute Assessment and plan: This patient's main complaint was swelling in the past few days since she has been discharged. 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 Patient is also been started on amlodipine recently which may be contributing to some of her lower extremity swelling, her blood loss anemia may also be increasing her fluid extravasation and subsequent swelling. Current Visit: Yes (3) GI bleed Status: Acute Assessment and plan: This patient has been having some black tarry stools her hematocrit is fallen around 19% from around 29% at the time of her recent discharge a few days ago. GI medicine has been consulted Current Visit: Yes (4) Melena Status: Acute Current Visit: Yes (5) Symptomatic anemia Status: Acute Current Visit: Yes (6) History of mitral valve replacement with mechanical valve Status: Chronic Current Visit: Yes (7) Pulmonary hypertension Status: Chronic Current Visit: Yes (8) Anemia Status: Acute Current Visit: No Qualifiers: Other causes of anemia: acute posthemorrhagic (9) Diarrhea Status: Chronic Current Visit: No (10) History of COPD Status: Chronic Current Visit: No (11) Coumadin toxicity Status: Acute Current Visit: No Qualifiers: Injury intent: accidental or unintentional
--- NOTE | 2017-02-06 07:45 | EKG Report ---
Stationary ECG Study [facility] Test Date: 02/06/2017 7:44:59 AM Pat Name: OSBALDO FARIAS Department: Room: 112 Gender: F [employer]: NAHUN : 1955 Requested by: Kaveh Fagan Order Number: [id number] Reading MD: LAWANDA MCCARTHY Intervals [place] Rate: 81 P: 76 MN: 132 QRS: 89 QRSD: 87 T: 86 QT: 366 QTc: 403 Interpretive Statements SINUS RHYTHM Electronically Signed On 02-06-17 14:48:48 CDT by LAWANDA MCCARTHY [email or web address]
--- NOTE | 2017-02-06 08:22 | Hospitalist Progress Note ---
Hospitalist: Subjective Interval history: PT states she had mild SOB around 3AM but it has improved. No cp, lightheadedness, dizziness, abd pain. She reports nausea but no emesis. No melena or BRBPR since transfer. Tolerating clear liquid diet. Exam - Constitutional Vitals: Period Temp Pulse Resp BP Sys/Vargas Pulse Ox Last 24 Hr 97.3 F-98.5 F 66-83 14-26 79-169/52-79 90-100 Exam: GEN: Alert, awake and oriented x 3 sitting in hospital bed in NAD, chronically ill appearing, ashen appearing CV: RRR with +S2 click and 1/6 systolic M heart best along the LSB. No rubs or gallops LUNGS: Diminished in RLL more than diminished throughout nonlabored, no wheezing appreciated ABD: Soft, NT, ND, +BS EXT: Warm no c/c/e, Neuro: nonfocal Results - Labs CBC & BMP: 02/06/17 05:01 02/06/17 05:01 - Impressions (1) Respiratory distress due to volume overload and anemia- improved Status: Acute Assessment and plan: S/p HD and 2U PRBCs. Current Visit: Yes (2) Acute blood loss anemia due to GIB/ melena due to coumadin toxicity Status: Acute Assessment and plan: - Transfused 2U PRBCs 02/05. Continue serial hemoglobins. GI following. - s/p Vitamin K oral - PPI Current Visit: Yes (3) GI bleed Status: Acute Assessment and plan: See above. Clear liquid diet to advance to full liquid diet Current Visit: Yes (4) ESRD on dialysis Status: Chronic Assessment and plan: Nephrology on board. HD per renal Current Visit: Yes (6) History of mitral valve replacement with mechanical valve Status: Chronic Assessment and plan: Holding coumadin. INR supratherapeutic. Daily INR. Current Visit: Yes (7) Chronic hypothyroidism - on synthroid (8) Chronic seizure disorder - on Keppra. Seizure precautions. Transfer to floor. D/W GI. All questions answered.
[2017-02-06] MEDS: clonazePAM 0.5 MG TABLET PO SCH ×3 (08:34→20:45)
[2017-02-06] MEDS: PANTOPRAZOLE 40 MG TABLET PO SCH (08:35)
[2017-02-06] MEDS: amLODIPine 5 MG TABLET PO SCH (08:35)
[2017-02-06] MEDS: sitaGLIPtin 25 MG TABLET PO SCH (08:35)
[2017-02-06] MEDS: levETIRAcetam 500 MG TABLET PO SCH ×2 (08:35→20:45)
[2017-02-06] MEDS: CALCIUM ACETATE 667 MG CAPSULE PO SCH ×3 (08:36→16:59)
[2017-02-06] MEDS: CARVEDILOL 6.25 MG TABLET PO SCH ×2 (08:36→20:44)
[2017-02-06] MEDS: AZELASTINE NASAL 137 MCG/SPRAY 30 ML BOTTLE BOTH NARES SCH ×2 (08:38→20:44)
[2017-02-06] MEDS: tiZANidine 4 MG TABLET PO SCH ×3 (08:38→20:45)
--- NOTE | 2017-02-06 09:07 | Cardiology Progress Note ---
Assessment and Plan (1) Hx of mechanical aortic valve replacement Status: Chronic Assessment and plan: SEE PLAN OF CARE LISTED BELOW. Current Visit: Yes (2) GI bleed Status: Acute Assessment and plan: SEE PLAN OF CARE LISTED BELOW. Current Visit: Yes (3) Symptomatic anemia Status: Acute Assessment and plan: SEE PLAN OF CARE LISTED BELOW. Current Visit: Yes (4) History of COPD Status: Chronic Assessment and plan: SEE PLAN OF CARE LISTED BELOW. Current Visit: No (5) Coumadin toxicity Status: Acute Assessment and plan: SEE PLAN OF CARE LISTED BELOW. Current Visit: No Qualifiers: Injury intent: accidental or unintentional (6) Pulmonary hypertension Status: Chronic Assessment and plan: SEE PLAN OF CARE LISTED BELOW. Current Visit: Yes (7) ESRD on dialysis Status: Chronic Assessment and plan: SEE PLAN OF CARE LISTED BELOW. Current Visit: Yes (8) Dietary noncompliance Problem details: Dietary to provide handout of high potassium containing foods to avoid. Status: Chronic Assessment and plan: SEE PLAN OF CARE LISTED BELOW. Current Visit: Yes (9) History of mitral valve replacement with mechanical valve Status: Chronic Current Visit: Yes Cardiology - PN: Subj Interval history: She was moved to the ICU overnight because of shortness of breath. She is feeling much better after receiving 2 units blood transfusion. She is not having any chest pain. She has not had a bowel movement this morning, does not know for melena persists. INR is decreased to 2.7. ASSESSMENT/PLAN: 1. HISTORY OF MECHANICAL AORTIC VALVE AND MECHANICAL MITRAL VALVE - Supratherapeutic INR greater than 5 at admission. We will follow her INR, probably will have to start a heparin bridge tomorrow. 2. CHRONIC ANTICOAGULATION WITH COUMADIN -as above. 3. GI BLEED - Reports melena. Gastroenterology has been consulted, and patient will be evaluated by endoscopy once INR has decreased. 4. HYPERTENSION - Blood pressure improved today. I am not going to advance her antihypertensives because of this question of ongoing bleeding and variable blood pressures. 5. END STAGE RENAL DISEASE, HEMODIALYSIS 6. ANEMIA - Continue to monitor closely. Transfuse as needed. 7. CAD WITH RECENT CABG - Clinically, patient is without findings for ACS at this time. 8. HISTORY OF COPD - This appears to be stable at this time. Exam (Progress Note) - Constitutional Vitals: Period Temp Pulse Resp BP Sys/Vargas Pulse Ox Last 24 Hr 97.3 F-98.5 F 66-83 14-26 79-169/52-79 90-100 Exam: General appearance: normal weight, no acute distress - Head Head exam: Present: normal inspection, normocephalic, atraumatic. Absent: hematoma, laceration - Eye Eye exam: Present: EOMI. Absent: conjunctival injection, nystagmus, periorbital swelling, scleral icterus, laceration to eyelids Pupils: Present: PERRL. Absent: constricted, dilated, fixed, irregular, unequal - ENT ENT exam: Present: normal exam, normal external ear exam - Neck Neck exam: Present: normal inspection. Absent: lymphadenopathy, meningismus, tenderness, thyromegaly - Respiratory Respiratory exam: Present: Crackles in the bilateral bases. Absent: accessory muscle use, chest wall tenderness - Cardiovascular Cardiovascular exam: Present: regular rate and rhythm, mechanical S1 and S2. Absent: carotid bruit, gallop, JVD, rubs - GI/Abdominal GI/Abdominal exam: Present: normal bowel sounds, soft. Absent: distended, firm , guarding, hernia, mass, tenderness, rebound. - Extremities Exam Extremities exam: Present: Ecchymosis throughout bilateral upper extremities, normal capillary refill. Absent: calf tenderness, edema - Back Exam Back exam: Present: normal inspection. Absent: muscle spasm, vertebral tenderness - Neurological Exam Neurological exam: Present: alert, oriented X3, grossly intact without resting or intention tremor - Psychiatric Psychiatric exam: Present: normal affect, depressed mood - Skin Skin exam: Present: Ecchymosis throughout the bilateral upper extremities and chest wall, warm, dry, intact. Absent: cyanosis, diaphoretic, rash, urticaria Result/EKG - Labs CBC & BMP: 02/06/17 05:01 02/06/17 05:01 Lab Results: I have reviewed the past 24 hour labs Labs: Laboratory Results - last 24 hr 02/05/17 02/05/17 02/05/17 06:22 13:16 14:25 WBC RBC Hgb Hct MCV MCH MCHC RDW Plt Count MPV Neut % (Auto) Lymph % (Auto) [place] % (Auto) Eos % (Auto) Baso % (Auto) Neut # (Auto) Lymph # (Auto) [place] # (Auto) Eos # (Auto) Baso # (Auto) Immature Gran % Nucleated RBC % Immature Gran # Nucleated RBCs # INR PT Patient/Control Mix ABG pH 7.417 ABG pCO2 36.9 ABG pO2 72.3 L ABG HCO3 24.0 ABG Total CO2 22.6 L ABG O2 Saturation 94.5 L ABG Base Excess -0.5 Sodium Potassium Chloride Carbon Dioxide Anion Gap BUN Creatinine GFR Calculation BUN/Creatinine Ratio Glucose POC Glucose 181 H Calculated Osmolality Calcium Magnesium Blood Type A POSITIVE Antibody Screen Negative Crossmatch See Detail 02/05/17 02/06/17 02/06/17 20:18 05:01 05:01 WBC 5.9 RBC 2.86 L D Hgb 8.9 L D 8.9 L Hct 28.4 L 26.9 L MCV 94.1 MCH 31 MCHC 33.1 RDW 18.4 H Plt Count 109 L MPV 11.0 Neut % (Auto) 74.5 H Lymph % (Auto) 16.9 L [place] % (Auto) 5.7 Eos % (Auto) 1.9 Baso % (Auto) 0.3 Neut # (Auto) 4.4 Lymph # (Auto) 1.0 L [place] # (Auto) 0.3 Eos # (Auto) 0.1 Baso # (Auto) 0.0 Immature Gran % 0.7 Nucleated RBC % 0.0 Immature Gran # 0.04 Nucleated RBCs # 0.00 INR PT Patient/Control Mix ABG pH ABG pCO2 ABG pO2 ABG HCO3 ABG Total CO2 ABG O2 Saturation ABG Base Excess Sodium 139 Potassium 4.2 Chloride 104 Carbon Dioxide 25 Anion Gap 14.2 BUN 31 H D Creatinine 4.30 H GFR Calculation 11 BUN/Creatinine Ratio 7.00 Glucose 83 POC Glucose Calculated Osmolality 282.5 Calcium 7.9 L Magnesium 1.8 Blood Type Antibody Screen Crossmatch 02/06/17 05:01 WBC RBC Hgb Hct MCV MCH MCHC RDW Plt Count MPV Neut % (Auto) Lymph % (Auto) [place] % (Auto) Eos % (Auto) Baso % (Auto) Neut # (Auto) Lymph # (Auto) [place] # (Auto) Eos # (Auto) Baso # (Auto) Immature Gran % Nucleated RBC % Immature Gran # Nucleated RBCs # INR 2.7 PT Patient/Control Mix 30.2 D ABG pH ABG pCO2 ABG pO2 ABG HCO3 ABG Total CO2 ABG O2 Saturation ABG Base Excess Sodium Potassium Chloride Carbon Dioxide Anion Gap BUN Creatinine GFR Calculation BUN/Creatinine Ratio Glucose POC Glucose Calculated Osmolality Calcium Magnesium Blood Type Antibody Screen Crossmatch
--- NOTE | 2017-02-06 10:02 | Gastrointestinal Progress Note ---
Assessment and Plan (1) Melena Status: Acute Assessment and plan: 02/06-Hgb improved at 8.9, INR improved at 2.7. No reports of overt bleeding. Advance to full liquid diet. Plan and addendum to follow by Dr Luke. 02/05-no further reports of melena, hematochezia. INR remains at 5.5, hemoglobin 7.1. Continue to monitor for any overt bleeding. Continue to monitor serial H&H. Plan an addendum to followed by Dr. Luke. 02/02-reports of melena daily for several months. History of anemia with recent blood transfusion and inpatient stay. Hemoglobin now 6.1 and being transfused 2 units packed red blood cells. On Coumadin therapy for history of mitral valve replacement with INR 4.6 on admission. 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 Plan an addendum to followed by Dr. Luke. Current Visit: Yes Gastroenterology - PN: Subj Interval history: CC: GI bleed Pt is seen awake and alert lying in bed. States she is feeling better today. She states her breathing is improved as well. Denies any abdominal pain, nausea or vomiting. She denies any overt bleeding as well. She is tolerating clear liquid diet well and asking to advance this. Abdomen is soft, nontender. She was transferred to ICU on yesterday due to decline in her respiratory status on yesterday. This is now improved and she is breathing comfortably. Her INR is also improved following oral vitamin K and down at 2.7. She received to more units of PRBC yesterday with hemoglobin at 8.9. She is to be transferred back to the floor today. ROS: Denies SOB or chest pain Exam (Progress Note) - Constitutional Vitals: Period Temp Pulse Resp BP Sys/Vargas Pulse Ox Last 24 Hr 97.3 F-98.5 F 66-83 14-26 79-169/52-79 90-100 - Other Additional findings: General appearance: normal weight, no acute distress - Head Head exam: Present: normal inspection, normocephalic - Eye Eye exam: Present: other (Lids and conjunctive are unremarkable). Absent: scleral icterus - ENT ENT exam: Present: normal exam, normal oropharynx - Neck Neck exam: Present: normal inspection - Respiratory Respiratory exam: Present: clear to auscultation bilaterally. Absent: rales, rhonchi, wheezes - Cardiovascular Cardiovascular exam: Present: regular rate and rhythm. Absent: diastolic murmur , JVD, systolic murmur - GI/Abdominal GI/Abdominal exam: Present: normal bowel sounds, soft. Absent: ascites, distended, mass, organomegaly, tenderness - Extremities Exam Extremities exam: Present: normal inspection, full ROM - Back Exam Back exam: Present: normal inspection - Neurological Exam Neurological exam: Present: alert, oriented X3 - Psychiatric Psychiatric exam: Present: normal affect, normal mood - Skin Skin exam: Present: normal color, warm, dry Results - Labs CBC & BMP: 02/06/17 05:01 02/06/17 05:01 Lab Results: I have reviewed the past 24 hour labs
[2017-02-06] MEDS ORDERED: GLUCAGON 1 MG VIAL IM PRN (11:06)
[2017-02-06] MEDS ORDERED: DEXTROSE 50% 25 GM/50 ML VIAL IV PRN (11:06)
[2017-02-06] MEDS: DESITIN 4OZ/NYSTATIN 15 GRAM MIXTURE PASTE TOP SCH ×2 (11:20→20:45)
[2017-02-06] MEDS: INSULIN LISPRO 100 UNIT/ML SUBCUT SCH ×3 (12:15→20:44)
[2017-02-06] MEDS: CINACALCET 30 MG TABLET PO SCH (16:59)
[2017-02-06] MEDS: PRAVASTATIN 20 MG TABLET PO SCH (20:45)
[2017-02-06] MEDS: rOPINIRole 0.25 MG TABLET PO SCH (20:45)
[2017-02-06] MEDS: MIRTAZAPINE 15 MG TABLET PO PRN (20:46)
[2017-02-07] MEDS: ONDANSETRON 4 MG/2 ML VIAL IM PRN ×2 (04:35→21:38)
[2017-02-07 04:58] LABS: Basophils % 0.4 % (0.0-0.8); Eosinophils # 0.1 10*3/uL (0.0-0.87); Eosinophils % 2.4 % (0.00-10.9); Hematocrit 25.8 VOL% (35.7-47.0); Hemoglobin 8.3 GM/DL (12.0-16.0); Immature Granulocytes % 0.5 %; Immature Granulocytes Absolute 0.03 #; Lymphocytes % 18.3 % (21.3-54.2); Mean Corpuscular HGB Conc 32.2 GM/DL (32-36); Mean Corpuscular Hemoglobin 31 PG (27-34); Mean Corpuscular Volume 94.9 FL (87-102); Mean Platelet Volume 10.5 FL (9.6-12.0); Monocytes # 0.4 10*3/uL (0.11-0.8); Monocytes % 7.1 % (1.7-12.7); Neutrophils % 71.3 % (38.7-73.9); Platelet Count 106 T/CUMM (130-400); Red Blood Count 2.72 MC/CUMM (3.8-5.5); Red Cell Distribution Width 18.3 % (9.3-17.3); White Blood Count 5.5 T/CUMM (4-12)
[2017-02-07 05:28] LABS: Calcium 7.7 MG/DL (8.5-10.1); Magnesium 1.7 MG/DL (1.8-2.4); Osmolality,Calculated 285.5 MOS/KG (273-304); Potassium 4.8 MMOL/L (3.5-5.1)
[2017-02-07] MEDS: LEVOTHYROXINE 100 MCG TABLET PO SCH (06:11)
--- NOTE | 2017-02-07 07:17 | EKG Report ---
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
--- NOTE | 2017-02-07 08:35 | Dialysis Note ---
Dialysis Note - Dialysis Note Ms. Betancourt is seen during her hemodialysis. She is tolerating dialysis well and is alert and oriented. Blood pressure is stable. Plan is to continue with usual hemodialysis.
[2017-02-07] MEDS: INSULIN LISPRO 100 UNIT/ML SUBCUT SCH ×5 (08:42→20:18)
[2017-02-07] MEDS: PANTOPRAZOLE 40 MG TABLET PO SCH (08:53)
[2017-02-07] MEDS: levETIRAcetam 500 MG TABLET PO SCH ×2 (08:53→20:11)
[2017-02-07] MEDS: clonazePAM 0.5 MG TABLET PO SCH ×3 (08:53→20:12)
[2017-02-07] MEDS: CALCIUM ACETATE 667 MG CAPSULE PO SCH ×3 (08:53→17:23)
[2017-02-07] MEDS: tiZANidine 4 MG TABLET PO SCH ×3 (08:54→20:11)
[2017-02-07] MEDS: AZELASTINE NASAL 137 MCG/SPRAY 30 ML BOTTLE BOTH NARES SCH ×2 (08:54→20:12)
[2017-02-07 09:55] LABS: INR 1.3; PT Patient Result 14.1 SECS
--- NOTE | 2017-02-07 09:59 | Gastrointestinal Progress Note ---
Assessment and Plan (1) Melena Status: Acute Assessment and plan: 02/07-hemoglobin down slightly at 8.3. INR is now down to 1.3. No reports of overt bleeding. Tentatively plan for EGD tomorrow to further evaluate pending respiratory status. Plan an addendum to follow Dr. Luke. 02/06-Hgb improved at 8.9, INR improved at 2.7. No reports of overt bleeding. Advance to full liquid diet. Plan and addendum to follow by Dr Luke. 02/05-no further reports of melena, hematochezia. INR remains at 5.5, hemoglobin 7.1. Continue to monitor for any overt bleeding. Continue to monitor serial H&H. Plan an addendum to followed by Dr. Luke. 02/02-reports of melena daily for several months. History of anemia with recent blood transfusion and inpatient stay. Hemoglobin now 6.1 and being transfused 2 units packed red blood cells. On Coumadin therapy for history of mitral valve replacement with INR 4.6 on admission. 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 Plan an addendum to followed by Dr. Luke. Current Visit: Yes Gastroenterology - PN: Subj Interval history: CC: Anemia, melena Patient is seen awake and alert in dialysis. States she had a restful night. She denies any signs of overt bleeding. Abdomen is soft, nontender. Hemoglobin is stable at 8.3. INR is noted down today at 1.3. She has a good appetite and is tolerating her diet at present time. If INR remains stable we will plan to proceed with upper endoscopy tomorrow to further evaluate source of anemia. Patient does state that she has had an increase in some of her shortness of breath and had concerns regarding this. Instructed patient that we can schedule her for an endoscopy however if she feels like she is having continued difficulty getting her breath we will postpone and reevaluate. ROS: Denies shortness of breath or chest pain at this time Exam (Progress Note) - Constitutional Vitals: Period Temp Pulse Resp BP Sys/Vargas Pulse Ox Last 24 Hr 97.3 F-97.4 F 69-87 12-24 113-186/55-105 94-100 - Other Additional findings: General appearance: normal weight, no acute distress - Head Head exam: Present: normal inspection, normocephalic - Eye Eye exam: Present: other (Lids and conjunctive are unremarkable). Absent: scleral icterus - ENT ENT exam: Present: normal exam, normal oropharynx - Neck Neck exam: Present: normal inspection - Respiratory Respiratory exam: Present: clear to auscultation bilaterally. Absent: rales, rhonchi, wheezes - Cardiovascular Cardiovascular exam: Present: regular rate and rhythm. Absent: diastolic murmur , JVD, systolic murmur - GI/Abdominal GI/Abdominal exam: Present: normal bowel sounds, soft. Absent: ascites, distended, mass, organomegaly, tenderness - Extremities Exam Extremities exam: Present: normal inspection, full ROM - Back Exam Back exam: Present: normal inspection - Neurological Exam Neurological exam: Present: alert, oriented X3 - Psychiatric Psychiatric exam: Present: normal affect, normal mood - Skin Skin exam: Present: normal color, warm, dry Results - Labs CBC & BMP: 02/07/17 04:07 02/07/17 04:07 Lab Results: I have reviewed the past 24 hour labs
--- NOTE | 2017-02-07 10:25 | Hospitalist Progress Note ---
Hospitalist: Subjective Interval history: no significant overnight events noted/reported per nursing. No fever. No abd pain. No further dark stools noted/reported. Exam - Constitutional Vitals: Period Temp Pulse Resp BP Sys/Vargas Pulse Ox Last 24 Hr 97.3 F-97.4 F 69-87 12-24 113-186/55-105 94-100 Exam: GEN: Alert, awake and oriented x 3 sitting in hospital bed in NAD, chronically ill appearing CV: RRR with +S2 click and 1/6 systolic M heart best along the LSB. No rubs or gallops LUNGS: Diminished in RLL more than diminished throughout nonlabored, no wheezing appreciated ABD: Soft, NT, ND, +BS EXT: Warm no c/c/e, Neuro: nonfocal Results - Labs CBC & BMP: 02/07/17 04:07 02/07/17 04:07 - Impressions (1) Respiratory distress due to volume overload and anemia- improved Status: Acute Assessment and plan: S/p HD and 4U PRBCs. Current Visit: Yes (2) Acute blood loss anemia due to GIB/ melena due to coumadin toxicity Status: Acute Assessment and plan: - last Transfused 2U PRBCs 02/05. Continue serial hemoglobins. GI following. H and H following. - s/p Vitamin K oral. INR is 1.3 today - PPI Current Visit: Yes (3) GI bleed Status: Acute Assessment and plan: See above. Full liquid diet. Endoscopy in the am per GI. Current Visit: Yes (4) ESRD on dialysis Status: Chronic Assessment and plan: Nephrology on board. HD per renal Current Visit: Yes (6) History of mitral valve replacement with mechanical valve Status: Chronic Assessment and plan: Holding coumadin. INR supratherapeutic on admission. 1.3 02/07. Daily INR. Current Visit: Yes (7) Chronic hypothyroidism - on synthroid (8) Chronic seizure disorder - on Keppra. Seizure precautions. No transfer to floor due to lack of beds. To floor when bed available. Awaiting EGD. All questions answered. Dispo: pending GI recs.
[2017-02-07] MEDS ORDERED: MAGNESIUM SULF RIDER 2 GM in PREMIX 1 EACH IV ONE (10:30)
--- NOTE | 2017-02-07 11:56 | Nephrology Progress Note ---
Nephrology - PN: Subj Interval history: Patient seen on hemodialysis today she is tolerating this well, she is feeling better. Review of systems GI she had some diarrhea today Physical exam general the patient is in no acute distress Assessment/plan 1. End-stage renal disease-we will continue hemodialysis support 2. GI bleed-this patient has been transfused about 4 units packed red blood cells since admission, her hematocrit is fairly stable dropping about 2 points from her peak a couple of days ago she is now around 26% 3. Mitral valve replacement-patient is anticoagulated for this she has had Coumadin toxicity her INR is 1.3 today after vitamin K administration Exam (PN)-Nephrology - Vital Signs Vital signs: Period Temp Pulse Resp BP Sys/Vargas Pulse Ox Last 24 Hr 97.3 F-97.4 F 69-87 12-24 121-186/55-105 94-100 - Lab 02/07/17 04:07 02/07/17 04:07 Most recent lab results ABG pH 7.417 (7.35-7.45) 02/05/17 14:25 ABG pCO2 36.9 MM HG (35-48) 02/05/17 14:25 ABG pO2 72.3 MM HG (80-95) L 02/05/17 14:25 ABG HCO3 24.0 MMOL/L (20-26) 02/05/17 14:25 ABG O2 Saturation 94.5 % (95-100) L 02/05/17 14:25 Calcium 7.7 MG/DL (8.5-10.1) L 02/07/17 04:07 Magnesium 1.7 MG/DL (1.8-2.4) L 02/07/17 04:07 Assessment and Plan (1) ESRD on dialysis Status: Chronic Assessment and plan: We will plan on hemodialysis today we will try ultrafilter some of the excess fluid in her body as she tolerates, hopefully the blood transfusions during dialysis will allow us to remove some of the excess fluid Current Visit: Yes (2) Volume overload Status: Acute Assessment and plan: This patient's main complaint was swelling in the past few days since she has been discharged. 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 Patient is also been started on amlodipine recently which may be contributing to some of her lower extremity swelling, her blood loss anemia may also be increasing her fluid extravasation and subsequent swelling. Current Visit: Yes (3) GI bleed Status: Acute Assessment and plan: This patient has been having some black tarry stools her hematocrit is fallen around 19% from around 29% at the time of her recent discharge a few days ago. GI medicine has been consulted Current Visit: Yes (4) Melena Status: Acute Current Visit: Yes (5) Symptomatic anemia Status: Acute Current Visit: Yes (6) History of mitral valve replacement with mechanical valve Status: Chronic Current Visit: Yes (7) Pulmonary hypertension Status: Chronic Current Visit: Yes (8) Anemia Status: Acute Current Visit: No Qualifiers: Other causes of anemia: acute posthemorrhagic (9) Diarrhea Status: Chronic Current Visit: No (10) History of COPD Status: Chronic Current Visit: Yes (11) Coumadin toxicity Status: Acute Current Visit: No Qualifiers: Injury intent: accidental or unintentional
[2017-02-07] MEDS: MAGNESIUM OXIDE 400 MG TABLET PO SCH ×2 (15:00→20:11)
[2017-02-07] MEDS: DESITIN 4OZ/NYSTATIN 15 GRAM MIXTURE PASTE TOP SCH ×2 (15:01→20:18)
[2017-02-07] MEDS: CINACALCET 30 MG TABLET PO SCH (17:23)
[2017-02-07] MEDS: PRAVASTATIN 20 MG TABLET PO SCH (20:12)
[2017-02-07] MEDS: MIRTAZAPINE 15 MG TABLET PO PRN (20:12)
[2017-02-07] MEDS: rOPINIRole 0.25 MG TABLET PO SCH (20:23)
--- NOTE | 2017-02-07 21:56 | Cardiology Progress Note ---
Alvaro Crow April RN, am scribing for, and in the presence of, Karen Wong MD 21:55. Assessment and Plan (1) GI bleed Status: Acute Assessment and plan: This is now improved, she is to undergo scoping tomorrow. Current Visit: Yes (2) Symptomatic anemia Status: Acute Current Visit: Yes (3) ESRD on dialysis Status: Chronic Current Visit: Yes (4) History of mitral valve replacement with mechanical valve Status: Chronic Assessment and plan: We need to bridge her back with heparin drip and restart her Coumadin as soon as possible. It is unclear what time she will be going for her scope tomorrow, so we will do this immediately postoperatively if that is okay with gastroenterology. Current Visit: Yes (5) Hx of mechanical aortic valve replacement Status: Chronic Current Visit: Yes (6) Pulmonary hypertension Status: Chronic Current Visit: Yes (7) Coumadin toxicity Status: Acute Current Visit: No Qualifiers: Injury intent: accidental or unintentional (8) History of COPD Status: Chronic Current Visit: Yes Cardiology - PN: Subj Interval history: Hand Potter: Dr. Ni Ms. Betancourt is seen today while on dialysis. She denies any chest pain, palpitations, or dizziness. Oxygen is in use via nasal cannula. She states her breathing is a bit shallow, a little worse than yesterday. She does me she is having diarrhea this morning. H&H is a little lower today at 8.3 and 25.8. She is tentatively scheduled for EGD tomorrow, this is pending based on respiratory status. INR today is 1.3, warfarin is still on hold. She has been in sinus rhythm with heart rates in the 80s. Exam (Progress Note) - Constitutional Vitals: Period Temp Pulse Resp BP Sys/Vargas Pulse Ox Last 24 Hr 97.3 F-97.4 F 69-82 12-22 113-186/55-105 94-98 General appearance: normal weight, no acute distress - Head Head exam: Present: atraumatic. Absent: abrasion, hematoma - Eye Eye exam: Present: EOMI. Absent: periorbital swelling, laceration to eyelids Pupils: Present: NONI. Absent: dilated, fixed - ENT ENT exam: Present: normal exam, normal external ear exam - Neck Neck exam: Present: normal inspection. Absent: lymphadenopathy, tenderness - Respiratory Respiratory exam: Present: clear to auscultation bilaterally, other (Oxygen via nasal cannula). Absent: accessory muscle use, chest wall tenderness - Cardiovascular Cardiovascular exam: Present: regular rate and rhythm, other (Mechanical S1-S2) . Absent: carotid bruit, rubs - GI/Abdominal GI/Abdominal exam: Present: normal bowel sounds, soft. Absent: distended, tenderness - Extremities Exam Extremities exam: Present: normal capillary refill. Absent: calf tenderness, edema - Back Exam Back exam: Absent: muscle spasm, vertebral tenderness - Neurological Exam Neurological exam: Present: alert, oriented X3 - Psychiatric Psychiatric exam: Present: normal affect, depressed - Skin Skin exam: Present: warm, dry Result/EKG - Labs CBC & BMP: 02/07/17 04:07 02/07/17 04:07 Lab Results: I have reviewed the past 24 hour labs Labs: Laboratory Results - last 24 hr 02/06/17 02/06/17 02/06/17 11:39 16:37 20:11 WBC RBC Hgb Hct MCV MCH MCHC RDW Plt Count MPV Neut % (Auto) Lymph % (Auto) [place] % (Auto) Eos % (Auto) Baso % (Auto) Neut # (Auto) Lymph # (Auto) [place] # (Auto) Eos # (Auto) Baso # (Auto) Immature Gran % Nucleated RBC % Immature Gran # Nucleated RBCs # Sodium Potassium Chloride Carbon Dioxide Anion Gap BUN Creatinine GFR Calculation BUN/Creatinine Ratio Glucose POC Glucose 96 97 150 H Calculated Osmolality Calcium Magnesium 02/07/17 02/07/17 02/07/17 04:07 04:07 07:31 WBC 5.5 RBC 2.72 L Hgb 8.3 L Hct 25.8 L MCV 94.9 MCH 31 MCHC 32.2 RDW 18.3 H Plt Count 106 L MPV 10.5 Neut % (Auto) 71.3 Lymph % (Auto) 18.3 L [place] % (Auto) 7.1 Eos % (Auto) 2.4 Baso % (Auto) 0.4 Neut # (Auto) 4.0 Lymph # (Auto) 1.0 L [place] # (Auto) 0.4 Eos # (Auto) 0.1 Baso # (Auto) 0.0 Immature Gran % 0.5 Nucleated RBC % 0.0 Immature Gran # 0.03 Nucleated RBCs # 0.00 Sodium 139 Potassium 4.8 Chloride 104 Carbon Dioxide 23 Anion Gap 16.8 H BUN 40 H Creatinine 5.90 H GFR Calculation 8 BUN/Creatinine Ratio 6.00 Glucose 88 POC Glucose 120 H Calculated Osmolality 285.5 Calcium 7.7 L Magnesium 1.7 L - EKG EKG results: interpreted by me EKG shows: sinus rhythm IMarvin Jennifer, MD, personally performed the services described in this documentation, ascribed by Elena John RN in my presence, and it is both accurate and complete [id number] .
[2017-02-08] MEDS: ACETAMINOPHEN 325 MG TABLET PO PRN (00:15)
[2017-02-08 06:34] LABS: Calcium 7.8 MG/DL (8.5-10.1); Magnesium 1.9 MG/DL (1.8-2.4); Osmolality,Calculated 276.7 MOS/KG (273-304); Potassium 4.3 MMOL/L (3.5-5.1)
[2017-02-08 06:47] LABS: Basophils % 0.2 % (0.0-0.8); Eosinophils # 0.1 10*3/uL (0.0-0.87); Eosinophils % 2.6 % (0.00-10.9); Hematocrit 25.6 VOL% (35.7-47.0); Hemoglobin 8.4 GM/DL (12.0-16.0); Immature Granulocytes % 0.8 %; Immature Granulocytes Absolute 0.04 #; Lymphocytes # 1.1 10*3/uL (1.4-4.0); Lymphocytes % 22.6 % (21.3-54.2); Mean Corpuscular HGB Conc 32.8 GM/DL (32-36); Mean Corpuscular Hemoglobin 31 PG (27-34); Mean Corpuscular Volume 94.5 FL (87-102); Mean Platelet Volume 10.8 FL (9.6-12.0); Monocytes # 0.4 10*3/uL (0.11-0.8); Monocytes % 7.5 % (1.7-12.7); Neutrophils # 3.3 10*3/uL (1.4-7.4); Neutrophils % 66.3 % (38.7-73.9); Platelet Count 117 T/CUMM (130-400); Red Blood Count 2.71 MC/CUMM (3.8-5.5); Red Cell Distribution Width 17.6 % (9.3-17.3)
[2017-02-08] MEDS: LEVOTHYROXINE 100 MCG TABLET PO SCH (06:57)
[2017-02-08 07:03] LABS: INR 1.2; PT Patient Result 12.8 SECS
[2017-02-08] MEDS: INSULIN LISPRO 100 UNIT/ML SUBCUT SCH ×4 (07:41→22:17)
[2017-02-08] MEDS: CALCIUM ACETATE 667 MG CAPSULE PO SCH ×3 (07:44→17:08)
[2017-02-08] MEDS: DESITIN 4OZ/NYSTATIN 15 GRAM MIXTURE PASTE TOP SCH ×2 (08:26→21:35)
--- NOTE | 2017-02-08 12:18 | Nephrology Progress Note ---
Nephrology - PN: Subj Interval history: Patient is feeling well, she denies shortness of breath. Review of systems-GI- the patient denies any nausea or vomiting Physical exam general the patient is in no acute distress, she has no pretibial edema Assessment/plan 1. End-stage renal disease-we will continue hemodialysis support 2. GI bleed-patient's to have a upper endoscopy done today 3. Volume overload-but seen this patient's in a more euvolemic state now 4. Pulmonary hypertension Exam (PN)-Nephrology - Vital Signs Vital signs: Period Temp Pulse Resp BP Sys/Vargas Pulse Ox Last 24 Hr 97.7 F-98 F 85-90 16-20 127-147/66-69 90-93 - Lab 02/08/17 04:00 02/08/17 04:00 Most recent lab results ABG pH 7.417 (7.35-7.45) 02/05/17 14:25 ABG pCO2 36.9 MM HG (35-48) 02/05/17 14:25 ABG pO2 72.3 MM HG (80-95) L 02/05/17 14:25 ABG HCO3 24.0 MMOL/L (20-26) 02/05/17 14:25 ABG O2 Saturation 94.5 % (95-100) L 02/05/17 14:25 Calcium 7.8 MG/DL (8.5-10.1) L 02/08/17 04:00 Magnesium 1.9 MG/DL (1.8-2.4) 02/08/17 04:00 Assessment and Plan (1) ESRD on dialysis Status: Chronic Assessment and plan: We will plan on hemodialysis today we will try ultrafilter some of the excess fluid in her body as she tolerates, hopefully the blood transfusions during dialysis will allow us to remove some of the excess fluid Current Visit: Yes (2) Volume overload Status: Acute Assessment and plan: This patient's main complaint was swelling in the past few days since she has been discharged. 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 Patient is also been started on amlodipine recently which may be contributing to some of her lower extremity swelling, her blood loss anemia may also be increasing her fluid extravasation and subsequent swelling. Current Visit: Yes (3) GI bleed Status: Acute Assessment and plan: This patient has been having some black tarry stools her hematocrit is fallen around 19% from around 29% at the time of her recent discharge a few days ago. GI medicine has been consulted Current Visit: Yes (4) Melena Status: Acute Current Visit: Yes (5) Symptomatic anemia Status: Acute Current Visit: Yes (6) History of mitral valve replacement with mechanical valve Status: Chronic Current Visit: Yes (7) Pulmonary hypertension Status: Chronic Current Visit: Yes (8) Anemia Status: Acute Current Visit: No Qualifiers: Other causes of anemia: acute posthemorrhagic (9) Diarrhea Status: Chronic Current Visit: No (10) History of COPD Status: Chronic Current Visit: Yes (11) Coumadin toxicity Status: Acute Current Visit: No Qualifiers: Injury intent: accidental or unintentional
--- NOTE | 2017-02-08 12:21 | Hospitalist Progress Note ---
Hospitalist: Subjective Interval history: Patient denies any melena or bright red blood per rectum. She denies any hematemesis. She is awaiting EGD. No chest pain Exam - Constitutional Vitals: Period Temp Pulse Resp BP Sys/Vargas Pulse Ox Last 24 Hr 97.7 F-98 F 85-93 16-20 127-173/66-72 90-98 Exam: GEN: Alert, awake and oriented x 3 sitting in hospital bed in NAD, chronically ill appearing CV: RRR with +S2 click and 1/6 systolic M heart best along the LSB. No rubs or gallops LUNGS: Diminished in RLL more than diminished throughout nonlabored, no wheezing appreciated ABD: Soft, NT, ND, +BS EXT: Warm no c/c/e, Neuro: nonfocal Results - Labs CBC & BMP: 02/08/17 04:00 02/08/17 04:00 - Impressions (1) Respiratory distress due to volume overload and anemia- improved Status: Acute Assessment and plan: S/p HD and 4U PRBCs. Current Visit: Yes (2) Acute blood loss anemia due to GIB/ melena due to coumadin toxicity Status: Acute Assessment and plan: - last Transfused 2U PRBCs 02/05. Continue serial hemoglobins. GI following. H and H following. - s/p Vitamin K oral. INR is 1.2 today - PPI Current Visit: Yes (3) GI bleed Status: Acute Assessment and plan: See above. Full liquid diet. Endoscopy per GI. Current Visit: Yes (4) ESRD on dialysis Status: Chronic Assessment and plan: Nephrology on board. HD per renal Current Visit: Yes (6) History of mitral valve replacement with mechanical valve Status: Chronic Assessment and plan: Holding coumadin. INR supratherapeutic on admission. 1.3 5, 1.2 02/08 Daily INR. Current Visit: Yes (7) Chronic hypothyroidism - on synthroid (8) Chronic seizure disorder - on Keppra. Seizure precautions. Awaiting EGD. All questions answered. Dispo: pending GI recs.
[2017-02-08] MEDS: MAGNESIUM OXIDE 400 MG TABLET PO SCH ×3 (13:52→21:34)
[2017-02-08] MEDS: clonazePAM 0.5 MG TABLET PO SCH ×3 (13:52→21:34)
[2017-02-08] MEDS: tiZANidine 4 MG TABLET PO SCH ×3 (13:53→21:34)
[2017-02-08] MEDS: AZELASTINE NASAL 137 MCG/SPRAY 30 ML BOTTLE BOTH NARES SCH ×2 (13:56→21:35)
--- NOTE | 2017-02-08 14:36 | Gastrointestinal Progress Note ---
<Mariella Reyna - Last Filed: 02/08/17 14:34> Assessment and Plan (1) Melena Status: Acute Assessment and plan: 02/08-Hgb 8.4. INR at 1.2. EGD postponed due to no IV access. Reschedule for tomorrow. Plan and addendum to follow by DR Luke. 02/07-hemoglobin down slightly at 8.3. INR is now down to 1.3. No reports of overt bleeding. Tentatively plan for EGD tomorrow to further evaluate pending respiratory status. Plan an addendum to follow Dr. Luke. 02/06-Hgb improved at 8.9, INR improved at 2.7. No reports of overt bleeding. Advance to full liquid diet. Plan and addendum to follow by Dr Luke. 02/05-no further reports of melena, hematochezia. INR remains at 5.5, hemoglobin 7.1. Continue to monitor for any overt bleeding. Continue to monitor serial H&H. Plan an addendum to followed by Dr. Luke. 02/02-reports of melena daily for several months. History of anemia with recent blood transfusion and inpatient stay. Hemoglobin now 6.1 and being transfused 2 units packed red blood cells. On Coumadin therapy for history of mitral valve replacement with INR 4.6 on admission. 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 Plan an addendum to followed by Dr. Luke. Current Visit: Yes Gastroenterology - PN: Subj Interval history: CC: Anemia Pt is seen awake and alert sitting up in bed. She was for scheduled EGD today however IV access was lost and unable to obtain this peripherally at this time. She will be rescheduled for tomorrow and have central line placement when available. Abdomen is soft, nontender. Hgb is 8.4, INR 1.2. ROS: Denies SOB or chest pain Exam (Progress Note) - Constitutional Vitals: Period Temp Pulse Resp BP Sys/Vargas Pulse Ox Last 24 Hr 97.7 F-98 F 85-96 16-22 130-201/67-079 90-99 General appearance: normal weight, no acute distress - Head Head exam: Present: normal inspection, normocephalic - Eye Eye exam: Present: other (lids and conjunctiva unremarkable). Absent: scleral icterus - ENT ENT exam: Present: normal exam, normal oropharynx - Neck Neck exam: Present: normal inspection - Respiratory Respiratory exam: Present: clear to auscultation bilaterally. Absent: rales, rhonchi, wheezes - Cardiovascular Cardiovascular exam: Present: regular rate and rhythm. Absent: diastolic murmur , JVD, systolic murmur - GI/Abdominal GI/Abdominal exam: Present: normal bowel sounds, soft. Absent: ascites, distended - Extremities Exam Extremities exam: Present: normal inspection, full ROM - Back Exam Back exam: Present: normal inspection - Neurological Exam Neurological exam: Present: alert, oriented X3 - Psychiatric Psychiatric exam: Present: normal affect, normal mood - Skin Skin exam: Present: normal color, warm, dry Results - Labs CBC & BMP: 02/08/17 04:00 02/08/17 04:00 Lab Results: I have reviewed the past 24 hour labs <Darion Luke - Last Filed: 02/08/17 17:10> Exam (Progress Note) - Constitutional Vitals: Period Temp Pulse Resp BP Sys/Vargas Pulse Ox Last 24 Hr 97.7 F-98 F 85-96 16-22 142-201/67-079 90-99 Results - Labs CBC & BMP: 02/08/17 04:00 02/08/17 04:00
[2017-02-08] MEDS: levETIRAcetam 500 MG TABLET PO SCH ×2 (15:41→21:34)
[2017-02-08] MEDS: PANTOPRAZOLE 40 MG TABLET PO SCH (15:44)
[2017-02-08] MEDS ORDERED: HEPARIN DRIP 25,000 UNITS/500 ML PREMIX IV SCH (16:00)
--- NOTE | 2017-02-08 16:56 | Operative Note ---
Date of procedure: 02/08/17 Pre-op diagnosis: Inadequate venous access Post-op diagnosis: same Procedure: Preoperative diagnosis Hypotension with inadequate venous access Postoperative diagnosis Same Procedures performed [Right] common femoral vein central line placement Findings The [right] common femoral vein was accessed on [first] stick with venous nonpulsatile blood return. The catheter was placed at 20 centimeters at the skin level. Complications None apparent Specimen None Anesthesia Local 10 cc lidocaine Indication Inadequate venous access Description of procedure [The patient was placed in supine position in his hospital bed.] The right groin was prepped with chlorhexidine and draped sterilely. Timeout was called. The femoral artery was palpated easily. Local anesthetic was administered medial to the artery. The vein was accessed with a needle on the [first] attempt by palpation of bony landmarks and femoral artery. Venous nonpulsatile blood return was obtained. A wire was passed easily into the venous system. A skin incision was made alongside the wire and the dilator was placed over the wire. Seldinger technique was used to place a triple-lumen catheter and it was threaded over the wire up to 20 centimeters at the skin. The catheter was sewn in place at this location. All 3 lm returned blood easily and were flushed with saline. The catheter was sewn in place with 3-0 silk sutures in a Biopatch sterile dressing was placed with Tegaderm. Postoperative plan Catheter is ready for immediate use Implants: triple lumen catheter Anesthesia: local Surgeon / Physician: Pranav Gibbons Estimated blood loss: minimal Specimens: none sent Condition: stable Disposition: no change Results - Labs CBC & BMP: 02/08/17 04:00 02/08/17 04:00 Discharge Plan - Discharge Medications No Action Linagliptin [Tradjenta] 5 mg PO DAILY Cinacalcet HCl [Sensipar] 60 mg PO DAILY W/SUPPER Ropinirole HCl [Requip] 0.5 mg PO BEDTIME Promethazine Tab [Phenergan Tab] 25 mg PO Q6H PRN PRN Reason: Nausea clonazePAM [Klonopin] 1 mg PO TID levETIRAcetam TAB [Keppra Tab] 500 mg PO BID Pravastatin [Pravachol] 20 mg PO BEDTIME Pantoprazole Tab [Protonix Tab] 40 mg PO BID Fluticasone 50 Mcg Nasal [place] [Flonase Nasal [place]] 1 spray BOTH NARES DAILY Azelastine HCl [Azelastine 0.1% Nasal [place]] 1 spray BOTH NARES BID tiZANidine [Zanaflex] 4 mg PO TID Budesonide/Formoterol 160-4.5 [Symbicort 160-4.5] 1 puff INH BID Mirtazapine [Remeron] 15 mg PO BEDTIME PRN PRN Reason: Sleep Promethazine Liquid [Phenergan Liquid] 25 mg PO Q6H Calcium Acetate [Phoslo] 667 mg PO TID W/MEALS Levothyroxine Tab [Synthroid Tab] 50 mcg PO DAILY@0700 Carvedilol [Coreg] 6.25 mg PO BID #60 tablet Fluticasone/Salmeterol 250-50 [Advair 250-50] 1 puff INH BID #1 Warfarin [Coumadin] 7.5 mg PO DAILY@1800 #30 tablet predniSONE TAB [PredniSONE] 20 mg PO DAILY #7 tablet amLODIPine [Norvasc] 5 mg PO DAILY #30 tablet - Follow Up or Referral - Forms/Instructions
[2017-02-08] MEDS: CINACALCET 30 MG TABLET PO SCH (17:08)
[2017-02-08] MEDS: ONDANSETRON 4 MG/2 ML VIAL IM PRN (18:49)
--- NOTE | 2017-02-08 20:03 | Cardiology Progress Note ---
Angelo Crow Vanessa, RN, am scribing for, and in the presence of, Karen Wong MD 20:03. Assessment and Plan - Time spent with patient Time spent with patient: Greater than 30 minutes (1) Hx of mechanical aortic valve replacement Status: Chronic Assessment and plan: SEE PLAN OF CARE LISTED BELOW. Current Visit: Yes (2) GI bleed Status: Acute Assessment and plan: SEE PLAN OF CARE LISTED BELOW. Current Visit: Yes (3) Symptomatic anemia Status: Acute Assessment and plan: SEE PLAN OF CARE LISTED BELOW. Current Visit: Yes (4) History of COPD Status: Chronic Assessment and plan: SEE PLAN OF CARE LISTED BELOW. Current Visit: Yes (5) Status post mechanical aortic valve replacement Status: Chronic Assessment and plan: SEE PLAN OF CARE LISTED BELOW. Current Visit: No (6) Coumadin toxicity Status: Acute Assessment and plan: SEE PLAN OF CARE LISTED BELOW. Current Visit: No Qualifiers: Injury intent: accidental or unintentional (7) Pulmonary hypertension Status: Chronic Assessment and plan: SEE PLAN OF CARE LISTED BELOW. Current Visit: Yes (8) ESRD on dialysis Status: Chronic Assessment and plan: SEE PLAN OF CARE LISTED BELOW. Current Visit: Yes (9) Dietary noncompliance Problem details: Dietary to provide handout of high potassium containing foods to avoid. Status: Chronic Assessment and plan: SEE PLAN OF CARE LISTED BELOW. Current Visit: Yes Cardiology - PN: Subj Interval history: PRIMARY FIRE LIEUTENANT: DR. CIPRIANO MCCARTHY CARDIOLOGY NOTE: COUMADIN TOXICITY, RECENT MECHANICAL AORTIC VALVE REPLACEMENT, MECHANICAL MITRAL VALVE REPLACEMENT, AND CABG x 1 SUMMARY: Ms. Betancourt is a 61-year-old white female with risk significant for: Hypertension , hyperlipidemia, diabetes, former tobacco use. Past medical history includes end-stage renal disease with hemodialysis, COPD, peripheral neuropathy, congestive heart failure, and anemia with GI bleeding. In November 2016, she underwent coronary artery bypass grafting 1 and mechanical aortic valve replacement at [facility]. Patient was just recently discharged on 01/30 after admission for supratherapeutic INR of 18 and acute blood loss anemia. Patient received packed red blood cells and FFP, and Coumadin was able to be resumed and dosage adjusted for therapeutic INR 2.5- 3.5. Time of discharge, her INR was 2.6 without further signs of blood. Patient presented to the ED on the evening of 02/01 with edema, melena, anemia with H/H of 6.6 & 20.7 INR was supratherapeutic 4.6. She has been transfused 2 units packed blood cells this admission. Gastroenterology has consulted, and endoscopy is pending upon improvement of INR and stability of respiratory status. On February 05, patient did require transfer to the ICU after experiencing increasing shortness of breath. H&H was noted at 7.1 and 21.5. Her symptoms did improve after receiving 2 units PRBCs with posttransfusion H&H 8.9 and 28.4. She was transferred back to [facility] on February 07. FEBRUARY 08, 2017: Ms. Betancourt stable overnight without acute change or new findings in hemodynamic status. She denies shortness of breath. No chest pain, or other cardiac complaint today. INR is 1.2 today, and dyspnea is stable. Stable anemia with H &H today of 8.4 25.6. Not having any recurrent bloody stools at this point. Afebrile. Systolic BP 150-170 mmHg. Patient is scheduled for EGD this morning. Patient was taken to the GI lab earlier this morning for endoscopy, and apparently at some point her peripheral IV access was lost and it was unable to be reestablished. Endoscopy was canceled and rescheduled for tomorrow after placement of central line. ASSESSMENT/PLAN: 1. HISTORY OF MECHANICAL AORTIC VALVE AND MECHANICAL MITRAL VALVE - Supratherapeutic INR greater than 5 at admission. Closely monitor INR. INR today is 1.2. As endoscopy has had to be rescheduled for tomorrow, we will begin bridging patient with heparin immediately in an effort to prevent acute valve thrombosis due to presence of dual mechanical valves. Begin concomitant Coumadin therapy after endoscopy completed and okay from GI standpoint 2. CHRONIC ANTICOAGULATION WITH COUMADIN -as above. 3. GI BLEED -melena upon admission. Gastroenterology is following, and endoscopy is planned for today as her INR has now improved and her respiratory status is stable. 4. HYPERTENSION - Blood pressure suboptimally controlled today. At this point her blood pressure is quite high, we will restart her antihypertensives. 5. END STAGE RENAL DISEASE, HEMODIALYSIS -hemodialysis per nephrology recommendations. 6. ANEMIA -stable at this time. Continue to monitor closely. Transfuse as needed. 7. CAD WITH RECENT CABG - Clinically, patient is without findings for ACS at this time. 8. HISTORY OF COPD - This appears to be stable at this time. Exam (Progress Note) - Constitutional Vitals: Period Temp Pulse Resp BP Sys/Vargas Pulse Ox Last 24 Hr 97.7 F-98 F 85-93 16-20 127-173/66-72 90-98 Exam: General appearance: Overweight, no acute distress - Head Head exam: Present: atraumatic. Absent: abrasion, hematoma - Eye Eye exam: Present: EOMI. Absent: periorbital swelling, laceration to eyelids Pupils: Present: NONI. Absent: dilated, fixed - ENT ENT exam: Present: normal exam, normal external ear exam - Neck Neck exam: Present: normal inspection. Absent: lymphadenopathy, tenderness - Respiratory Respiratory exam: Present: clear to auscultation bilaterally, other: Supplemental oxygen via nasal cannula. Absent: No rhonchi, rales, wheeze - Cardiovascular Cardiovascular exam: Present: regular rate and rhythm, other (Mechanical S1-S2) . Absent: carotid bruit, rubs - GI/Abdominal GI/Abdominal exam: Present: normal bowel sounds, soft. Absent: distended, tenderness - Extremities Exam Extremities exam: Present: normal capillary refill. Absent: calf tenderness, edema - Back Exam Back exam: Absent: muscle spasm, vertebral tenderness - Neurological Exam Neurological exam: Present: alert, oriented X3. - Psychiatric Psychiatric exam: Present: normal affect, normal mood. Does not appear anxious or depressed. - Skin Skin exam: Present: warm, dry. Other: Ecchymotic bruising bilateral upper extremities-improved from previous exam. Result/EKG - Labs CBC & BMP: 02/08/17 04:00 02/08/17 04:00 Lab Results: I have reviewed the past 24 hour labs Labs: Laboratory Results - last 24 hr 02/07/17 02/07/17 02/07/17 13:03 16:07 19:59 WBC RBC Hgb Hct MCV MCH MCHC RDW Plt Count MPV Neut % (Auto) Lymph % (Auto) Walsh % (Auto) Eos % (Auto) Baso % (Auto) Neut # (Auto) Lymph # (Auto) Walsh # (Auto) Eos # (Auto) Baso # (Auto) Immature Gran % Nucleated RBC % Immature Gran # Nucleated RBCs # INR PT Patient/Control Mix Sodium Potassium Chloride Carbon Dioxide Anion Gap BUN Creatinine GFR Calculation BUN/Creatinine Ratio Glucose POC Glucose 156 H 146 H 178 H Calculated Osmolality Calcium Magnesium 02/08/17 02/08/17 02/08/17 04:00 04:00 04:00 WBC 5.0 RBC 2.71 L Hgb 8.4 L Hct 25.6 L MCV 94.5 MCH 31 MCHC 32.8 RDW 17.6 H Plt Count 117 L MPV 10.8 Neut % (Auto) 66.3 Lymph % (Auto) 22.6 Walsh % (Auto) 7.5 Eos % (Auto) 2.6 Baso % (Auto) 0.2 Neut # (Auto) 3.3 Lymph # (Auto) 1.1 L Walsh # (Auto) 0.4 Eos # (Auto) 0.1 Baso # (Auto) 0.0 Immature Gran % 0.8 Nucleated RBC % 0.0 Immature Gran # 0.04 Nucleated RBCs # 0.00 INR 1.2 PT Patient/Control Mix 12.8 Sodium 138 Potassium 4.3 Chloride 102 Carbon Dioxide 25 Anion Gap 15.3 H BUN 18 D Creatinine 3.60 H GFR Calculation 14 BUN/Creatinine Ratio 5.00 L Glucose 106 POC Glucose Calculated Osmolality 276.7 Calcium 7.8 L Magnesium 1.9 02/08/17 02/08/17 07:17 11:11 WBC RBC Hgb Hct MCV MCH MCHC RDW Plt Count MPV Neut % (Auto) Lymph % (Auto) Walsh % (Auto) Eos % (Auto) Baso % (Auto) Neut # (Auto) Lymph # (Auto) Walsh # (Auto) Eos # (Auto) Baso # (Auto) Immature Gran % Nucleated RBC % Immature Gran # Nucleated RBCs # INR PT Patient/Control Mix Sodium Potassium Chloride Carbon Dioxide Anion Gap BUN Creatinine GFR Calculation BUN/Creatinine Ratio Glucose POC Glucose 110 H 87 Calculated Osmolality Calcium Magnesium - EKG EKG results: interpreted by me, no acute changes EKG shows: sinus rhythm I, Karen Wong MD, personally performed the services described in this documentation, ascribed by Jolynn Stephens RN in my presence, and it is both accurate and complete .
[2017-02-08] MEDS: rOPINIRole 0.25 MG TABLET PO SCH (21:33)
[2017-02-08] MEDS: MIRTAZAPINE 15 MG TABLET PO PRN (21:34)
[2017-02-08] MEDS: CARVEDILOL 6.25 MG TABLET PO SCH (21:34)
[2017-02-08] MEDS: PRAVASTATIN 20 MG TABLET PO SCH (21:34)
[2017-02-09] MEDS: MORPHINE 2 MG/1 ML SYRINGE IV PRN ×3 (00:45→21:15)
[2017-02-09 04:30] LABS: Basophils % 0.4 % (0.0-0.8); Eosinophils # 0.2 10*3/uL (0.0-0.87); Eosinophils % 3.2 % (0.00-10.9); Hematocrit 22.7 VOL% (35.7-47.0); Hemoglobin 7.3 GM/DL (12.0-16.0); Immature Granulocytes % 0.6 %; Immature Granulocytes Absolute 0.03 #; Lymphocytes % 21.4 % (21.3-54.2); Mean Corpuscular HGB Conc 32.2 GM/DL (32-36); Mean Corpuscular Hemoglobin 31 PG (27-34); Mean Corpuscular Volume 95.4 FL (87-102); Mean Platelet Volume 10.5 FL (9.6-12.0); Monocytes # 0.3 10*3/uL (0.11-0.8); Monocytes % 6.5 % (1.7-12.7); Neutrophils # 3.2 10*3/uL (1.4-7.4); Neutrophils % 67.9 % (38.7-73.9); Platelet Count 113 T/CUMM (130-400); Red Blood Count 2.38 MC/CUMM (3.8-5.5); Red Cell Distribution Width 17.5 % (9.3-17.3); White Blood Count 4.8 T/CUMM (4-12)
[2017-02-09 04:40] LABS: INR 1.2; PT Patient Result 12.7 SECS
[2017-02-09 05:00] LABS: Osmolality,Calculated 287.3 MOS/KG (273-304); Potassium 4.8 MMOL/L (3.5-5.1)
[2017-02-09] MEDS: LEVOTHYROXINE 100 MCG TABLET PO SCH (06:56)
[2017-02-09] MEDS ORDERED: SODIUM CHLORIDE 0.9% 250 ML IV PRN (08:39)
[2017-02-09] MEDS: INSULIN LISPRO 100 UNIT/ML SUBCUT SCH ×4 (08:55→21:18)
[2017-02-09] MEDS: MAGNESIUM OXIDE 400 MG TABLET PO SCH ×2 (09:05→21:38)
[2017-02-09] MEDS: PANTOPRAZOLE 40 MG TABLET PO SCH (09:12)
[2017-02-09] MEDS: levETIRAcetam 500 MG TABLET PO SCH ×2 (09:12→21:17)
[2017-02-09] MEDS: CARVEDILOL 6.25 MG TABLET PO SCH ×2 (09:12→21:16)
[2017-02-09] MEDS: amLODIPine 5 MG TABLET PO SCH (09:12)
[2017-02-09] MEDS: clonazePAM 0.5 MG TABLET PO SCH ×3 (09:12→21:16)
[2017-02-09] MEDS: CALCIUM ACETATE 667 MG CAPSULE PO SCH ×3 (09:12→17:31)
[2017-02-09] MEDS: tiZANidine 4 MG TABLET PO SCH ×3 (09:13→21:16)
[2017-02-09] MEDS: AZELASTINE NASAL 137 MCG/SPRAY 30 ML BOTTLE BOTH NARES SCH ×2 (10:26→21:39)
[2017-02-09] MEDS: DESITIN 4OZ/NYSTATIN 15 GRAM MIXTURE PASTE TOP SCH ×2 (10:27→22:46)
--- NOTE | 2017-02-09 11:17 | Nephrology Progress Note ---
Nephrology - PN: Subj Interval history: Patient seen on hemodialysis, she is tolerating this well. She feels well. Physical exam general the patient is in no acute distress Assessment/plan 1. End-stage renal disease-continue hemodialysis support 2. Coumadin toxicity-patient's INR is down to 1.2 she was given some heparin yesterday to prevent clots forming on her mechanical heart valves. 3. Anemia-patient's hematocrit has decreased to 23% from around 25% yesterday and a peak of 28% posttransfusion about 4 days ago. The patient has no obvious bleeding source, she is for upper endoscopy today. Exam (PN)-Nephrology - Vital Signs Vital signs: Period Temp Pulse Resp BP Sys/Vargas Pulse Ox Last 24 Hr 96.8 F-97.8 F 89-96 16-20 140-201/67-079 95-98 - Lab 02/09/17 03:52 02/09/17 03:52 Most recent lab results ABG pH 7.417 (7.35-7.45) 02/05/17 14:25 ABG pCO2 36.9 MM HG (35-48) 02/05/17 14:25 ABG pO2 72.3 MM HG (80-95) L 02/05/17 14:25 ABG HCO3 24.0 MMOL/L (20-26) 02/05/17 14:25 ABG O2 Saturation 94.5 % (95-100) L 02/05/17 14:25 Calcium 8.0 MG/DL (8.5-10.1) L 02/09/17 03:52 Magnesium 2.0 MG/DL (1.8-2.4) 02/09/17 03:52 Assessment and Plan (1) ESRD on dialysis Status: Chronic Assessment and plan: We will plan on hemodialysis today we will try ultrafilter some of the excess fluid in her body as she tolerates, hopefully the blood transfusions during dialysis will allow us to remove some of the excess fluid Current Visit: Yes (2) Volume overload Status: Acute Assessment and plan: This patient's main complaint was swelling in the past few days since she has been discharged. 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 Patient is also been started on amlodipine recently which may be contributing to some of her lower extremity swelling, her blood loss anemia may also be increasing her fluid extravasation and subsequent swelling. Current Visit: Yes (3) GI bleed Status: Acute Assessment and plan: This patient has been having some black tarry stools her hematocrit is fallen around 19% from around 29% at the time of her recent discharge a few days ago. GI medicine has been consulted Current Visit: Yes (4) Melena Status: Acute Current Visit: Yes (5) Symptomatic anemia Status: Acute Current Visit: Yes (6) History of mitral valve replacement with mechanical valve Status: Chronic Current Visit: Yes (7) Pulmonary hypertension Status: Chronic Current Visit: Yes (8) Anemia Status: Acute Current Visit: No Qualifiers: Other causes of anemia: acute posthemorrhagic (9) Diarrhea Status: Chronic Current Visit: No (10) History of COPD Status: Chronic Current Visit: Yes (11) Coumadin toxicity Status: Acute Current Visit: No Qualifiers: Injury intent: accidental or unintentional
[2017-02-09] MEDS ORDERED: LABETALOL 100 MG/20 ML VIAL IV ONE (13:37)
[2017-02-09] MEDS ORDERED: ONDANSETRON 4 MG/2 ML VIAL ONE (13:37)
[2017-02-09] MEDS ORDERED: ETOMIDATE 20 MG/10 ML VIAL IV ONE (13:37)
--- NOTE | 2017-02-09 13:51 | History and Physical Update ---
History and Physical Update - History and Physical H&P was reviewed, the patient examined and there: are no changes in the patients condition since last H&P was completed. - Physical Exam Mental Status: alert and oriented Heart: regular rate and rhythm Lung: clear to auscultation Abdomen: within normal limits Vitals: within normal limits
--- NOTE | 2017-02-09 13:55 | Operative Note ---
Date of procedure: 02/09/17 Pre-op diagnosis: GI bleed Procedure: Procedure: Esophagogastroduodenoscopy Brief clinical abstract: 61-year-old female was admitted last week with GI bleed with melena in the setting of elevated INR on Coumadin. She has had no further gross GI bleeding since admission but did require transfusion of 4 units packed red blood cells. Indication for procedure: GI bleed with melena Endoscopic findings:[After informed consent was obtained, the patient was placed in the left lateral decubitus position. The gastroscope was inserted in the upper esophagus under direct vision with no resistance encountered. Esophageal mucosa appeared normal with squamocolumnar junction sharply demarcated above a small hiatal hernia. The endoscope was advanced in the stomach which was carefully examined including retroflexed view of the cardia and fundus with no abnormality seen. The pyloric channel, duodenal bulb, second and third portion of the duodenum had normal appearance. The endoscope was withdrawn and patient appeared to tolerate procedure well. Impression: Small hiatal hernia-otherwise normal EGD Recommendations: Would follow clinically for now with transfusion support as needed. I do not think she could tolerate colonoscopy at this time. Dr. Fenton is preparation supervisor this weekend for GI if needed. Anesthesia: MAC Surgeon / Physician: Darion Luke Estimated blood loss: none Specimens: none sent Condition: stable Disposition: post procedure unit Results - Labs CBC & BMP: 02/09/17 03:52 02/09/17 03:52 Discharge Plan - Discharge Medications No Action Linagliptin [Tradjenta] 5 mg PO DAILY Cinacalcet HCl [Sensipar] 60 mg PO DAILY W/SUPPER Ropinirole HCl [Requip] 0.5 mg PO BEDTIME Promethazine Tab [Phenergan Tab] 25 mg PO Q6H PRN PRN Reason: Nausea clonazePAM [Klonopin] 1 mg PO TID levETIRAcetam TAB [Keppra Tab] 500 mg PO BID Pravastatin [Pravachol] 20 mg PO BEDTIME Pantoprazole Tab [Protonix Tab] 40 mg PO BID Fluticasone 50 Mcg Nasal [place] [Flonase Nasal [place]] 1 spray BOTH NARES DAILY Azelastine HCl [Azelastine 0.1% Nasal [place]] 1 spray BOTH NARES BID tiZANidine [Zanaflex] 4 mg PO TID Budesonide/Formoterol 160-4.5 [Symbicort 160-4.5] 1 puff INH BID Mirtazapine [Remeron] 15 mg PO BEDTIME PRN PRN Reason: Sleep Promethazine Liquid [Phenergan Liquid] 25 mg PO Q6H Calcium Acetate [Phoslo] 667 mg PO TID W/MEALS Levothyroxine Tab [Synthroid Tab] 50 mcg PO DAILY@0700 Carvedilol [Coreg] 6.25 mg PO BID #60 tablet Fluticasone/Salmeterol 250-50 [Advair 250-50] 1 puff INH BID #1 Warfarin [Coumadin] 7.5 mg PO DAILY@1800 #30 tablet predniSONE TAB [PredniSONE] 20 mg PO DAILY #7 tablet amLODIPine [Norvasc] 5 mg PO DAILY #30 tablet - Follow Up or Referral - Forms/Instructions
--- NOTE | 2017-02-09 14:02 | Anesthesia Post-Op ---
Anesthesia Post OP - Post Ansesthetic Evaluation Patient seen in post op: Yes Resp: within normal limits CV: within normal limits Mental: within normal limits Temp: within normal limits [id number]: within normal limits Nausea and Vomiting: within normal limits Pain: within normal limits
[2017-02-09] MEDS ORDERED: HEPARIN LOCK FLUSH 500 UNIT/5 ML SYRINGE IV ONE (14:26)
--- NOTE | 2017-02-09 15:56 | Hospitalist Progress Note ---
Hospitalist: Subjective Interval history: Patient had EGD today and only showed small hiatal hernia otherwise normal. H& H however dropped again. No fever. No nausea or vomiting. No melena reported. Exam - Constitutional Vitals: Period Temp Pulse Resp BP Sys/Vargas Pulse Ox Last 24 Hr 96.8 F-98.6 F 19-96 16-28 140-177/67-082 95-99 Exam: GEN: Alert, awake and oriented x 3 sitting in hospital bed in NAD, chronically ill appearing CV: RRR with +S2 click and 1/6 systolic M heart best along the LSB. No rubs or gallops LUNGS: Diminished in RLL more than diminished throughout nonlabored, no wheezing appreciated ABD: Soft, NT, ND, +BS EXT: Warm no c/c/e, multiple bruises on extremities Neuro: nonfocal Results - Labs CBC & BMP: 02/09/17 03:52 02/09/17 03:52 - Impressions (1) Respiratory distress due to volume overload and anemia- improved Status: Acute Assessment and plan: S/p HD and 4U PRBCs. Current Visit: Yes (2) Acute blood loss anemia due to GIB/ melena due to coumadin toxicity Status: Acute Assessment and plan: - last Transfused 2U PRBCs 02/05. continue serial hemoglobins. GI following. Transfuse an additional 2 units today - s/p Vitamin K oral. INR is 1.2 today - She received heparin 02/08/2017 due to history of mechanical valve and possible thrombosis - PPI Current Visit: Yes (3) GI bleed with a history of melena-possible small bowel source Status: Acute Assessment and plan: See above. Full liquid diet. EGD 02/09 showed hiatal hernia but no other pathology. No plans for colonoscopy at this time. Patient may require small bowel capsule study. Will defer to GI. Current Visit: Yes (4) ESRD on dialysis Status: Chronic Assessment and plan: Nephrology on board. HD per renal Current Visit: Yes (6) History of mitral valve replacement with mechanical valve Status: Chronic Assessment and plan: Holding coumadin. INR supratherapeutic on admission. 1.3 5, 1.2 5 Daily INR. Cardiology managing anticoagulation. Current Visit: Yes (7) Chronic hypothyroidism - on synthroid (8) Chronic seizure disorder - on Keppra. Seizure precautions. All questions answered. Dispo: pending GI recs.
[2017-02-09] MEDS: CINACALCET 30 MG TABLET PO SCH (18:32)
[2017-02-09] MEDS: ONDANSETRON 4 MG/2 ML VIAL IM PRN (18:32)
--- NOTE | 2017-02-09 20:54 | Cardiology Progress Note ---
Angelo Crow Vanessa, RN, am scribing for, and in the presence of, Karen Wong MD 20:53. Assessment and Plan - Time spent with patient Time spent with patient: Greater than 30 minutes (1) Hx of mechanical aortic valve replacement Status: Chronic Assessment and plan: SEE PLAN OF CARE LISTED BELOW. Current Visit: Yes (2) GI bleed Status: Acute Assessment and plan: SEE PLAN OF CARE LISTED BELOW. Current Visit: Yes (3) Symptomatic anemia Status: Acute Assessment and plan: SEE PLAN OF CARE LISTED BELOW. Current Visit: Yes (4) History of COPD Status: Chronic Assessment and plan: SEE PLAN OF CARE LISTED BELOW. Current Visit: Yes (5) Status post mechanical aortic valve replacement Status: Chronic Assessment and plan: SEE PLAN OF CARE LISTED BELOW. Current Visit: No (6) Coumadin toxicity Status: Acute Assessment and plan: SEE PLAN OF CARE LISTED BELOW. Current Visit: No Qualifiers: Injury intent: accidental or unintentional (7) Pulmonary hypertension Status: Chronic Assessment and plan: SEE PLAN OF CARE LISTED BELOW. Current Visit: Yes (8) ESRD on dialysis Status: Chronic Assessment and plan: SEE PLAN OF CARE LISTED BELOW. Current Visit: Yes (9) Dietary noncompliance Problem details: Dietary to provide handout of high potassium containing foods to avoid. Status: Chronic Assessment and plan: SEE PLAN OF CARE LISTED BELOW. Current Visit: Yes Cardiology - PN: Subj Interval history: PRIMARY MARKET RESEARCH ASSOCIATE: DR. CIPRIANO MCCARTHY CARDIOLOGY NOTE: COUMADIN TOXICITY, RECENT MECHANICAL AORTIC VALVE REPLACEMENT, MECHANICAL MITRAL VALVE REPLACEMENT, AND CABG x 1 SUMMARY: Ms. Betancourt is a 61-year-old white female with risk significant for: Hypertension , hyperlipidemia, diabetes, former tobacco use. Past medical history includes end-stage renal disease with hemodialysis, COPD, peripheral neuropathy, congestive heart failure, and anemia with GI bleeding. In November 2016, she underwent coronary artery bypass grafting 1 and mechanical aortic valve replacement at [facility]. Patient was just recently discharged on 01/30 after admission for supratherapeutic INR of 18 and acute blood loss anemia. Patient received packed red blood cells and FFP, and Coumadin was able to be resumed and dosage adjusted for therapeutic INR 2.5- 3.5. Time of discharge, her INR was 2.6 without further signs of blood. Patient presented to the ED on the evening of 02/01 with edema, melena, anemia with H/H of 6.6 & 20.7 INR was supratherapeutic 4.6. She has been transfused 2 units packed blood cells this admission. Gastroenterology has consulted, and endoscopy is pending upon improvement of INR and stability of respiratory status. On February 05, patient did require transfer to the ICU after experiencing increasing shortness of breath. H&H was noted at 7.1 and 21.5. Her symptoms did improve after receiving 2 units PRBCs with posttransfusion H&H 8.9 and 28.4. She was transferred back to [facility] on February 07. January: Patient was started on IV heparin infusion yesterday evening after central line was able to be placed. However, infusion had to be stopped overnight due to continued bleeding from right groin central line area requiring manual pressure and reinforcing the dressings. This morning, patient's H&H 7.3 and 22.7. She will be transfused with 2 units packed red blood cells today. INR currently holding at 1.2. EGD is scheduled for today and findings are pending. Afebrile , systolic BP 140-165. ASSESSMENT/PLAN: 1. HISTORY OF MECHANICAL AORTIC VALVE AND MECHANICAL MITRAL VALVE - Supratherapeutic INR greater than 5 at admission. Closely monitor INR. INR today is 1.2. Heparin infusion had to be discontinued overnight due to bleeding at right groin central line site. We will resume anticoagulation immediately post EGD pending findings. Begin concomitant Coumadin therapy after endoscopy completed and okay from GI standpoint 2. CHRONIC ANTICOAGULATION WITH COUMADIN -as above. 3. GI BLEED -melena upon admission. Gastroenterology is following, and endoscopy is planned for today as her INR has now improved and her respiratory status is stable. 4. HYPERTENSION - Blood pressure suboptimally controlled today. At this point her blood pressure is quite high, we will restart her antihypertensives. 5. END STAGE RENAL DISEASE, HEMODIALYSIS -hemodialysis per nephrology recommendations. 6. ANEMIA -H&H decreased and 7.3 and 22.7. Continue to monitor closely. Transfuse as needed-she will receive 2 units PRBCs today. 7. CAD WITH RECENT CABG - Clinically, patient is without findings for ACS at this time. 8. HISTORY OF COPD - This appears to be stable at this time. Addendum 21:00 No source of bleeding was identified with EGD. It appears that no plans for colonoscopy have been made. There is some concern that the patient may not be clinically stable to proceed with this procedure, although it is unclear to me where the concern lies. The patient requires ongoing anticoagulation lifelong for her double mechanical valves and has had a significant bleeding complication. It was in the setting of supratherapeutic INR. However, if the patient has a colonic bleeding source that could potentially be treated (such as narrowing a polyp), this would be ideal for her longevity and health. I have discussed this with Dr. Fenton and asked him to reconsider colonoscopy with the patient when he evaluates the patient tomorrow. The patient has had access issues. She has not been receiving her heparin for this reason. I called the nurse at 8:00 this morning and asked her to address the [place] issues with the patient's primary team so that we could resume this. I discussed this with Dr. Gibbons at approximately 5 PM, and he had not been notified of the bleeding complications by anyone at the side of the line that he put in. He has since sutured the bleeding site and this has stopped. We will resume heparin. We will resume Coumadin after Dr. Fenton determines whether or not the patient will undergo colonoscopy. Exam (Progress Note) - Constitutional Vitals: Period Temp Pulse Resp BP Sys/Vargas Pulse Ox Last 24 Hr 96.8 F-97.9 F 89-96 16-22 140-201/67-079 91-99 Exam: General appearance: Overweight, no acute distress - Head Head exam: Present: atraumatic. Absent: abrasion, hematoma - Eye Eye exam: Present: EOMI. Absent: periorbital swelling, laceration to eyelids Pupils: Present: NONI. Absent: dilated, fixed - ENT ENT exam: Present: normal exam, normal external ear exam - Neck Neck exam: Present: normal inspection. Absent: lymphadenopathy, tenderness - Respiratory Respiratory exam: Present: clear to auscultation bilaterally, other: Supplemental oxygen via nasal cannula. Absent: No rhonchi, rales, wheeze - Cardiovascular Cardiovascular exam: Present: regular rate and rhythm, other (Mechanical S1-S2) . Absent: carotid bruit, rubs - GI/Abdominal GI/Abdominal exam: Present: normal bowel sounds, soft. Absent: distended, tenderness - Extremities Exam Extremities exam: Present: normal capillary refill. Absent: calf tenderness, edema. Other: Right groin with triple-lumen central venous line intact. - Back Exam Back exam: Absent: muscle spasm, vertebral tenderness - Neurological Exam Neurological exam: Present: alert, oriented X3. - Psychiatric Psychiatric exam: Present: normal affect, normal mood. Does not appear anxious or depressed. - Skin Skin exam: Present: warm, dry. Other: Ecchymotic bruising bilateral upper extremities-improved from previous exam. Result/EKG - Labs CBC & BMP: 02/09/17 03:52 02/09/17 03:52 Lab Results: I have reviewed the past 24 hour labs Labs: Laboratory Results - last 24 hr 02/08/17 02/08/17 02/08/17 11:11 16:50 21:43 WBC RBC Hgb Hct MCV MCH MCHC RDW Plt Count MPV Neut % (Auto) Lymph % (Auto) [place] % (Auto) Eos % (Auto) Baso % (Auto) Neut # (Auto) Lymph # (Auto) [place] # (Auto) Eos # (Auto) Baso # (Auto) Immature Gran % Nucleated RBC % Immature Gran # Nucleated RBCs # INR PT Patient/Control Mix Sodium Potassium Chloride Carbon Dioxide Anion Gap BUN Creatinine GFR Calculation BUN/Creatinine Ratio Glucose POC Glucose 87 147 H 133 H Calculated Osmolality Calcium Magnesium 02/09/17 02/09/17 02/09/17 03:52 03:52 03:52 WBC 4.8 RBC 2.38 L Hgb 7.3 L Hct 22.7 L MCV 95.4 MCH 31 MCHC 32.2 RDW 17.5 H Plt Count 113 L MPV 10.5 Neut % (Auto) 67.9 Lymph % (Auto) 21.4 [place] % (Auto) 6.5 Eos % (Auto) 3.2 Baso % (Auto) 0.4 Neut # (Auto) 3.2 Lymph # (Auto) 1.0 L [place] # (Auto) 0.3 Eos # (Auto) 0.2 Baso # (Auto) 0.0 Immature Gran % 0.6 Nucleated RBC % 0.0 Immature Gran # 0.03 Nucleated RBCs # 0.00 INR 1.2 PT Patient/Control Mix 12.7 Sodium 141 Potassium 4.8 Chloride 104 Carbon Dioxide 28 Anion Gap 13.8 BUN 29 H D Creatinine 5.50 H GFR Calculation 8 BUN/Creatinine Ratio 5.00 L Glucose 122 H POC Glucose Calculated Osmolality 287.3 Calcium 8.0 L Magnesium 2.0 02/09/17 08:24 WBC RBC Hgb Hct MCV MCH MCHC RDW Plt Count MPV Neut % (Auto) Lymph % (Auto) [place] % (Auto) Eos % (Auto) Baso % (Auto) Neut # (Auto) Lymph # (Auto) [place] # (Auto) Eos # (Auto) Baso # (Auto) Immature Gran % Nucleated RBC % Immature Gran # Nucleated RBCs # INR PT Patient/Control Mix Sodium Potassium Chloride Carbon Dioxide Anion Gap BUN Creatinine GFR Calculation BUN/Creatinine Ratio Glucose POC Glucose 101 Calculated Osmolality Calcium Magnesium - EKG EKG results: interpreted by me, no acute changes IMarvin Jennifer, MD, personally performed the services described in this documentation, ascribed by Jolynn Stephens RN in my presence, and it is both accurate and complete .
[2017-02-09] MEDS: rOPINIRole 0.25 MG TABLET PO SCH (21:16)
[2017-02-09] MEDS: PRAVASTATIN 20 MG TABLET PO SCH (21:16)
[2017-02-09] MEDS: ACETAMINOPHEN 325 MG TABLET PO PRN (23:45)
[2017-02-10] MEDS: MORPHINE 2 MG/1 ML SYRINGE IV PRN (01:55)
[2017-02-10 03:19] LABS: Hematocrit 27.6 VOL% (35.7-47.0); Hemoglobin 9.2 GM/DL (12.0-16.0)
[2017-02-10 03:39] LABS: INR 1.2; PT Patient Result 12.7 SECS
[2017-02-10] MEDS: HEPARIN DRIP 25,000 UNITS/500 ML PREMIX IV SCH ×2 (04:15→23:48)
[2017-02-10] MEDS: LEVOTHYROXINE 100 MCG TABLET PO SCH (06:17)
[2017-02-10] MEDS: INSULIN LISPRO 100 UNIT/ML SUBCUT SCH ×4 (08:35→21:50)
[2017-02-10] MEDS: amLODIPine 5 MG TABLET PO SCH (08:37)
[2017-02-10] MEDS: CALCIUM ACETATE 667 MG CAPSULE PO SCH ×3 (08:39→16:57)
[2017-02-10] MEDS: tiZANidine 4 MG TABLET PO SCH ×3 (08:39→21:51)
[2017-02-10] MEDS: MAGNESIUM OXIDE 400 MG TABLET PO SCH (08:39)
[2017-02-10] MEDS: PANTOPRAZOLE 40 MG TABLET PO SCH (08:39)
[2017-02-10] MEDS: clonazePAM 0.5 MG TABLET PO SCH ×3 (08:39→21:50)
[2017-02-10] MEDS: levETIRAcetam 500 MG TABLET PO SCH ×2 (08:39→21:51)
[2017-02-10] MEDS: CARVEDILOL 6.25 MG TABLET PO SCH ×2 (08:40→21:51)
[2017-02-10] MEDS: AZELASTINE NASAL 137 MCG/SPRAY 30 ML BOTTLE BOTH NARES SCH ×2 (08:40→21:51)
--- NOTE | 2017-02-10 09:02 | Nephrology Progress Note ---
Nephrology - PN: Subj Interval history: Ms. Betancourt is seen in follow-up of her end-stage renal disease. She is stable following upper endoscopy yesterday with no identification of a bleeding source. She is currently receiving heparin to bridge until Coumadin can be returned to the therapeutic range. Her chest is clear and she is anxious to be discharged. She does understand that there may be more investigation needed. She previously had surgery in [place] by Dr. Ponce to reestablish bowel continuity following an ostomy. She is contemplating care there but that would certainly delay definitive investigation. Exam (PN)-Nephrology - Vital Signs Vital signs: Period Temp Pulse Resp BP Sys/Vargas Pulse Ox Last 24 Hr 97.6 F-98.6 F 19-95 16-28 123-177/54-082 95-99 - Lab 02/10/17 02:49 02/09/17 03:52 Most recent lab results ABG pH 7.417 (7.35-7.45) 02/05/17 14:25 ABG pCO2 36.9 MM HG (35-48) 02/05/17 14:25 ABG pO2 72.3 MM HG (80-95) L 02/05/17 14:25 ABG HCO3 24.0 MMOL/L (20-26) 02/05/17 14:25 ABG O2 Saturation 94.5 % (95-100) L 02/05/17 14:25 Calcium 8.0 MG/DL (8.5-10.1) L 02/09/17 03:52 Magnesium 2.0 MG/DL (1.8-2.4) 02/09/17 03:52
[2017-02-10] MEDS: ONDANSETRON 4 MG/2 ML VIAL IM PRN ×2 (09:06→15:46)
[2017-02-10] MEDS: DESITIN 4OZ/NYSTATIN 15 GRAM MIXTURE PASTE TOP SCH ×2 (11:10→21:51)
[2017-02-10] MEDS ORDERED: HEPARIN 5,000 UNIT/1 ML VIAL IV ONE (11:23)
--- NOTE | 2017-02-10 11:37 | Hospitalist Progress Note ---
Hospitalist: Subjective Interval history: Patient denies any new complaints. No significant overnight events. On heparin drip without any signs or symptoms of bleeding. No fever. Patient reports she has had a bowel movement but has not noted any melena. No hematemesis. Exam - Constitutional Vitals: Period Temp Pulse Resp BP Sys/Vargas Pulse Ox Last 24 Hr 97.4 F-98.6 F 19-95 16-28 123-177/54-082 95-99 Exam: GEN: Alert, awake and oriented x 3 sitting in hospital bed in NAD, chronically ill appearing CV: RRR with +S2 click and 1/6 systolic M heart best along the LSB. No rubs or gallops LUNGS: Diminished in RLL more than diminished throughout nonlabored, no wheezing appreciated ABD: Soft, NT, ND, +BS EXT: Warm no c/c/e, multiple bruises on extremities Neuro: nonfocal Results - Labs CBC & BMP: 02/10/17 02:49 02/09/17 03:52 - Impressions (1) Respiratory distress due to volume overload and anemia- improved Status: Acute Assessment and plan: S/p HD and 6U PRBCs. Current Visit: Yes (2) Acute blood loss anemia due to GIB/ melena due to coumadin toxicity Status: Acute Assessment and plan: - last Transfused 2U PRBCs 02/09. continue serial hemoglobins. GI following. - s/p Vitamin K oral. INR is 1.2 today -She is on a heparin drip due to history of mechanical valve and possible thrombosis without any signs of bleeding at this time - PPI Current Visit: Yes (3) GI bleed with a history of melena in a patient with a history of AVM status post partial colectomy-possible small bowel source Status: Acute Assessment and plan: See above. Patient on a regular diet at this time. EGD 02/09 showed hiatal hernia but no other pathology. No plans for colonoscopy at this time. Patient may require small bowel capsule study. Will defer to GI. Current Visit: Yes (4) ESRD on dialysis Status: Chronic Assessment and plan: Nephrology on board. HD per renal Current Visit: Yes (6) History of mitral valve replacement with mechanical valve Status: Chronic Assessment and plan: Holding coumadin. INR supratherapeutic on admission. 1.3 02/07, 1.2 02/08 Daily INR. Cardiology managing anticoagulation. Current Visit: Yes (7) Chronic hypothyroidism - on synthroid (8) Chronic seizure disorder - on Keppra. Seizure precautions. All questions answered. Dispo: pending GI recs. Discuss with cardiology. I will be away several days. 1 of my associates will follow in my absence.
--- NOTE | 2017-02-10 15:51 | Cardiology Progress Note ---
Assessment and Plan (1) Hx of mechanical aortic valve replacement Status: Chronic Assessment and plan: SEE PLAN OF CARE LISTED BELOW. Current Visit: Yes (2) GI bleed Status: Acute Assessment and plan: SEE PLAN OF CARE LISTED BELOW. Current Visit: Yes (3) Symptomatic anemia Status: Acute Assessment and plan: SEE PLAN OF CARE LISTED BELOW. Current Visit: Yes (4) History of COPD Status: Chronic Assessment and plan: SEE PLAN OF CARE LISTED BELOW. Current Visit: Yes (5) Status post mechanical aortic valve replacement Status: Chronic Assessment and plan: SEE PLAN OF CARE LISTED BELOW. Current Visit: No (6) Coumadin toxicity Status: Acute Assessment and plan: SEE PLAN OF CARE LISTED BELOW. Current Visit: No Qualifiers: Injury intent: accidental or unintentional (7) Pulmonary hypertension Status: Chronic Assessment and plan: SEE PLAN OF CARE LISTED BELOW. Current Visit: Yes (8) ESRD on dialysis Status: Chronic Assessment and plan: SEE PLAN OF CARE LISTED BELOW. Current Visit: Yes Cardiology - PN: Subj Interval history: PRIMARY BIOINFORMATICIAN: DR. CIPRIANO MCCARTHY CARDIOLOGY NOTE: COUMADIN TOXICITY, RECENT MECHANICAL AORTIC VALVE REPLACEMENT, MECHANICAL MITRAL VALVE REPLACEMENT, AND CABG x 1 SUMMARY: Ms. Betancourt is a 61-year-old white female with risk significant for: Hypertension , hyperlipidemia, diabetes, former tobacco use. Past medical history includes end-stage renal disease with hemodialysis, COPD, peripheral neuropathy, congestive heart failure, and anemia with GI bleeding. In November 2016, she underwent coronary artery bypass grafting 1 and mechanical aortic valve replacement at [facility]. Patient was just recently discharged on 01/30 after admission for supratherapeutic INR of 18 and acute blood loss anemia. Patient received packed red blood cells and FFP, and Coumadin was able to be resumed and dosage adjusted for therapeutic INR 2.5- 3.5. At time of discharge, her INR was 2.6 without further signs of blood. Patient presented to the ED on the evening of 02/01 with edema, melena, anemia with H/H of 6.6 & 20.7 INR was supratherapeutic 4.6. EGD was performed which did not reveal a source of blood loss. She has a history of partial colectomy and AVMs, and therefore colonoscopy was not going to be pursued. There has been some issue with access and her receiving her IV heparin infusion. At this point, her right femoral line has been secured without further bleeding. Heparin was resumed. She did not have any bleeding overnight. She denies any chest pain or shortness of breath. I did find her sitting up in a chair and asking if she could get a walker to ambulate. I educated her that with her right femoral line she cannot be sitting up or ambulating. ASSESSMENT/PLAN: 1. HISTORY OF MECHANICAL AORTIC VALVE AND MECHANICAL MITRAL VALVE - Supratherapeutic INR greater than 5 at admission. Heparin drip has been resumed and we will resume her Coumadin tonight. She has been alternating Coumadin 5 and 10 mg prior to this admission. I will resume her at 6 mg since she was supratherapeutic on the prior regimen. 2. CHRONIC ANTICOAGULATION WITH COUMADIN -as above. 3. GI BLEED -currently stable without recurrence despite heparin drip. 4. HYPERTENSION -controlled 5. END STAGE RENAL DISEASE, HEMODIALYSIS -hemodialysis per nephrology recommendations. 6. ANEMIA -stable. 7. CAD WITH RECENT CABG - Clinically, patient is without findings for ACS at this time. 8. HISTORY OF COPD - This appears to be stable at this time. It would be nice to get peripheral IV access so that her right femoral line could be removed and she could resume ambulation. I will defer access to the primary team. She will require a heparin bridge for a number of days. Exam (Progress Note) - Constitutional Vitals: Period Temp Pulse Resp BP Sys/Vargas Pulse Ox Last 24 Hr 97.4 F-98.3 F 84-95 16-20 123-171/54-96 93-98 Exam: General appearance: Overweight, no acute distress - Head Head exam: Present: atraumatic. Absent: abrasion, hematoma - Eye Eye exam: Present: EOMI. Absent: periorbital swelling, laceration to eyelids Pupils: Present: NONI. Absent: dilated, fixed - ENT ENT exam: Present: normal exam, normal external ear exam - Neck Neck exam: Present: normal inspection. Absent: lymphadenopathy, tenderness - Respiratory Respiratory exam: Present: clear to auscultation bilaterally, other: Supplemental oxygen via nasal cannula. Absent: No rhonchi, rales, wheeze - Cardiovascular Cardiovascular exam: Present: regular rate and rhythm, other (Mechanical S1-S2) . Absent: carotid bruit, rubs - GI/Abdominal GI/Abdominal exam: Present: normal bowel sounds, soft. Absent: distended, tenderness - Extremities Exam Extremities exam: Present: normal capillary refill. Absent: calf tenderness, edema. Other: Right groin with triple-lumen central venous line intact. - Back Exam Back exam: Absent: muscle spasm, vertebral tenderness - Neurological Exam Neurological exam: Present: alert, oriented X3. - Psychiatric Psychiatric exam: Present: normal affect, normal mood. Does not appear anxious or depressed. - Skin Skin exam: Present: warm, dry. Other: Ecchymotic bruising bilateral upper extremities-improved from previous exam. Result/EKG - Labs CBC & BMP: 02/10/17 02:49 02/09/17 03:52 Lab Results: I have reviewed the past 24 hour labs Labs: Laboratory Results - last 24 hr 02/09/17 02/09/17 02/10/17 03:49 20:32 02:49 Hgb Hct INR 1.2 PT Patient/Control Mix 12.7 Circ Anticoag PTT 32.0 D POC Glucose 138 H Blood Type A POSITIVE Antibody Screen Negative Crossmatch See Detail 02/10/17 02/10/17 02/10/17 02:49 05:35 07:32 Hgb 9.2 L D Hct 27.6 L INR PT Patient/Control Mix Circ Anticoag PTT 34.8 POC Glucose 110 H Blood Type Antibody Screen Crossmatch 02/10/17 10:33 Hgb Hct INR PT Patient/Control Mix Circ Anticoag PTT 36.3 POC Glucose Blood Type Antibody Screen Crossmatch
[2017-02-10] MEDS: CINACALCET 30 MG TABLET PO SCH (16:57)
[2017-02-10] MEDS: WARFARIN 3 MG TABLET PO SCH (17:40)
[2017-02-10] MEDS: PRAVASTATIN 20 MG TABLET PO SCH (21:51)
[2017-02-10] MEDS: rOPINIRole 0.25 MG TABLET PO SCH (21:51)
[2017-02-11 05:16] LABS: Basophils % 0.2 % (0.0-0.8); Eosinophils # 0.2 10*3/uL (0.0-0.87); Eosinophils % 4.3 % (0.00-10.9); Hemoglobin 8.1 GM/DL (12.0-16.0); Immature Granulocytes % 0.4 %; Immature Granulocytes Absolute 0.02 #; Lymphocytes # 1.3 10*3/uL (1.4-4.0); Lymphocytes % 26.8 % (21.3-54.2); Mean Corpuscular HGB Conc 32.4 GM/DL (32-36); Mean Corpuscular Hemoglobin 30 PG (27-34); Mean Corpuscular Volume 93.6 FL (87-102); Mean Platelet Volume 10.5 FL (9.6-12.0); Monocytes # 0.3 10*3/uL (0.11-0.8); Monocytes % 6.2 % (1.7-12.7); Neutrophils # 2.9 10*3/uL (1.4-7.4); Neutrophils % 62.1 % (38.7-73.9); Platelet Count 115 T/CUMM (130-400); Red Blood Count 2.67 MC/CUMM (3.8-5.5); Red Cell Distribution Width 17.1 % (9.3-17.3); White Blood Count 4.7 T/CUMM (4-12)
[2017-02-11 05:32] LABS: INR 1.2; PT Patient Result 12.3 SECS
[2017-02-11] MEDS: LEVOTHYROXINE 100 MCG TABLET PO SCH (06:45)
[2017-02-11] MEDS: INSULIN LISPRO 100 UNIT/ML SUBCUT SCH ×4 (08:32→21:26)
[2017-02-11] MEDS: amLODIPine 5 MG TABLET PO SCH (08:34)
[2017-02-11] MEDS: clonazePAM 0.5 MG TABLET PO SCH ×3 (08:34→21:26)
[2017-02-11] MEDS: AZELASTINE NASAL 137 MCG/SPRAY 30 ML BOTTLE BOTH NARES SCH ×2 (08:35→21:27)
[2017-02-11] MEDS: CARVEDILOL 6.25 MG TABLET PO SCH ×2 (08:35→21:26)
[2017-02-11] MEDS: tiZANidine 4 MG TABLET PO SCH ×3 (08:35→21:27)
[2017-02-11] MEDS: DESITIN 4OZ/NYSTATIN 15 GRAM MIXTURE PASTE TOP SCH ×2 (08:35→21:27)
[2017-02-11] MEDS: CALCIUM ACETATE 667 MG CAPSULE PO SCH ×3 (08:35→16:24)
[2017-02-11] MEDS: levETIRAcetam 500 MG TABLET PO SCH ×2 (08:35→21:26)
[2017-02-11] MEDS: PANTOPRAZOLE 40 MG TABLET PO SCH (08:35)
--- NOTE | 2017-02-11 08:56 | Nephrology Progress Note ---
Nephrology - PN: Subj Interval history: Ms. Betancourt is seen in follow-up of her end-stage renal disease. She continues to receive a heparin infusion until her Coumadin restores her INR to therapeutic range. Her chest is clear and she has no complaints. She is having no bleeding. We will continue to support with hemodialysis while here. Exam (PN)-Nephrology - Vital Signs Vital signs: Period Temp Pulse Resp BP Sys/Vargas Pulse Ox Last 24 Hr 97.5 F-98.2 F 73-91 17-20 111-171/55-95 85-99 - Lab 02/11/17 04:12 02/09/17 03:52 Most recent lab results ABG pH 7.417 (7.35-7.45) 02/05/17 14:25 ABG pCO2 36.9 MM HG (35-48) 02/05/17 14:25 ABG pO2 72.3 MM HG (80-95) L 02/05/17 14:25 ABG HCO3 24.0 MMOL/L (20-26) 02/05/17 14:25 ABG O2 Saturation 94.5 % (95-100) L 02/05/17 14:25 Calcium 8.0 MG/DL (8.5-10.1) L 02/09/17 03:52 Magnesium 2.0 MG/DL (1.8-2.4) 02/09/17 03:52
--- NOTE | 2017-02-11 09:15 | Hospitalist Progress Note ---
Assessment and Plan (1) Acute blood loss anemia Status: Acute Current Visit: Yes (2) ESRD on dialysis Status: Chronic Current Visit: Yes (3) History of mitral valve replacement with mechanical valve Status: Chronic Current Visit: Yes (4) Coumadin toxicity Status: Acute Assessment and plan: -The patient is improving -Tolerated hemodialysis, will continue hemodialysis, nephrology following we will continue to follow the recommendation -Patient remains on heparin infusion -INR stable at 1.2, being managed by cardiology -Her hematocrit down to 25, will continue to follow closely, may require transfusion if hematocrit drops below 24 -Continue chronic prescription medication including Keppra, Synthroid, Norvasc Current Visit: No Qualifiers: Injury intent: accidental or unintentional Hospitalist: Subjective Interval history: The patient is a 61 year old female admitted to the hospital with an acute GI bleed due to coumadin toxicity as well as acute respiratory failure requiring HD. The patient complains of occasional nosebleed, but she denies any melena, hematochezia or hemoptysis. She also denies any chest pain or shortness of breath. She reports that she is tolerating a diet without difficulty. Exam - Constitutional Vitals: Period Temp Pulse Resp BP Sys/Vargas Pulse Ox Last 24 Hr 97.5 F-98.2 F 73-91 17-20 111-171/55-95 85-99 General appearance: normal weight - Head Head exam: Present: normal inspection - Eye Eye exam: Present: EOMI Pupils: Present: NONI - ENT ENT exam: Present: normal exam - Respiratory Respiratory exam: Present: clear to auscultation bilaterally. Absent: chest wall tenderness, rales, rhonchi - Cardiovascular Cardiovascular exam: Present: regular rate and rhythm - GI/Abdominal GI/Abdominal exam: Present: normal bowel sounds. Absent: ascites, distended, guarding, tenderness - Extremities Exam Extremities exam: Present: full ROM - Skin Skin exam: Present: other (ecchymosis of left neck and face) Results - Labs CBC & BMP: 02/11/17 04:12 02/09/17 03:52 Lab Results: I have reviewed the past 24 hour labs
[2017-02-11] MEDS: ONDANSETRON 4 MG/2 ML VIAL IM PRN ×2 (10:25→21:32)
--- NOTE | 2017-02-11 15:17 | Cardiology Progress Note ---
Assessment and Plan (1) Hx of mechanical aortic valve replacement Status: Chronic Assessment and plan: SEE PLAN OF CARE LISTED BELOW. Current Visit: Yes (2) GI bleed Status: Acute Assessment and plan: SEE PLAN OF CARE LISTED BELOW. Current Visit: Yes (3) Symptomatic anemia Status: Acute Assessment and plan: SEE PLAN OF CARE LISTED BELOW. Current Visit: Yes (4) History of COPD Status: Chronic Assessment and plan: SEE PLAN OF CARE LISTED BELOW. Current Visit: Yes (5) Status post mechanical aortic valve replacement Status: Chronic Assessment and plan: SEE PLAN OF CARE LISTED BELOW. Current Visit: No (6) Coumadin toxicity Status: Acute Assessment and plan: SEE PLAN OF CARE LISTED BELOW. Current Visit: No Qualifiers: Injury intent: accidental or unintentional (7) Pulmonary hypertension Status: Chronic Assessment and plan: SEE PLAN OF CARE LISTED BELOW. Current Visit: Yes (8) ESRD on dialysis Status: Chronic Assessment and plan: SEE PLAN OF CARE LISTED BELOW. Current Visit: Yes Cardiology - PN: Subj Interval history: PRIMARY GLOVE FACTORY SEWER: DR. CIPRIANO MCCARTHY CARDIOLOGY NOTE: COUMADIN TOXICITY, RECENT MECHANICAL AORTIC VALVE REPLACEMENT, MECHANICAL MITRAL VALVE REPLACEMENT, AND CABG x 1 SUMMARY: Ms. Betancourt is a 61-year-old white female with risk significant for: Hypertension , hyperlipidemia, diabetes, former tobacco use. Past medical history includes end-stage renal disease with hemodialysis, COPD, peripheral neuropathy, congestive heart failure, and anemia with GI bleeding. In November 2016, she underwent coronary artery bypass grafting 1 and mechanical aortic valve replacement at [facility]. Patient was just recently discharged on 01/30 after admission for supratherapeutic INR of 18 and acute blood loss anemia. Patient received packed red blood cells and FFP, and Coumadin was able to be resumed and dosage adjusted for therapeutic INR 2.5- 3.5. At time of discharge, her INR was 2.6 without further signs of blood. Patient presented to the ED on the evening of 02/01 with edema, melena, anemia with H/H of 6.6 & 20.7 INR was supratherapeutic 4.6. EGD was performed which did not reveal a source of blood loss. She has a history of partial colectomy and AVMs, and therefore colonoscopy was not going to be pursued. There has been some issue with access and her receiving her IV heparin infusion. At this point, her right femoral line has been secured without further bleeding. Heparin has been resumed. February 03, 2017: She has no acute complaints. Denies any chest pain, shortness of breath. No melena or bright red blood per rectum. No further bleeding from her central line site. ASSESSMENT/PLAN: 1. HISTORY OF MECHANICAL AORTIC VALVE AND MECHANICAL MITRAL VALVE - Supratherapeutic INR greater than 5 at admission. Heparin drip has been resumed and we will resume her Coumadin tonight. She has been alternating Coumadin 5 and 10 mg prior to this admission. I will resume her at 6 mg since she was supratherapeutic on the prior regimen. 2. CHRONIC ANTICOAGULATION WITH COUMADIN -as above. 3. GI BLEED -currently stable without recurrence despite heparin drip. 4. HYPERTENSION -controlled 5. END STAGE RENAL DISEASE, HEMODIALYSIS -hemodialysis per nephrology recommendations. 6. ANEMIA -stable. 7. CAD WITH RECENT CABG - Clinically, patient is without findings for ACS at this time. 8. HISTORY OF COPD - This appears to be stable at this time. It would be nice to get peripheral IV access so that her right femoral line could be removed and she could resume ambulation. I will defer access to the primary team. She will require a heparin bridge for a number of days. Exam (Progress Note) - Constitutional Vitals: Period Temp Pulse Resp BP Sys/Vargas Pulse Ox Last 24 Hr 97 F-98.2 F 73-89 17-20 111-139/55-77 85-99 Exam: General appearance: Overweight, no acute distress - Head Head exam: Present: atraumatic. Absent: abrasion, hematoma - Eye Eye exam: Present: EOMI. Absent: periorbital swelling, laceration to eyelids Pupils: Present: NONI. Absent: dilated, fixed - ENT ENT exam: Present: normal exam, normal external ear exam - Neck Neck exam: Present: normal inspection. Absent: lymphadenopathy, tenderness - Respiratory Respiratory exam: Present: clear to auscultation bilaterally, other: Supplemental oxygen via nasal cannula. Absent: No rhonchi, rales, wheeze - Cardiovascular Cardiovascular exam: Present: regular rate and rhythm, other (Mechanical S1-S2) . Absent: carotid bruit, rubs - GI/Abdominal GI/Abdominal exam: Present: normal bowel sounds, soft. Absent: distended, tenderness - Extremities Exam Extremities exam: Present: normal capillary refill. Absent: calf tenderness, edema. Other: Right groin with triple-lumen central venous line intact. - Back Exam Back exam: Absent: muscle spasm, vertebral tenderness - Neurological Exam Neurological exam: Present: alert, oriented X3. - Psychiatric Psychiatric exam: Present: normal affect, normal mood. Does not appear anxious or depressed. - Skin Skin exam: Present: warm, dry. Other: Ecchymotic bruising bilateral upper extremities-improved from previous exam. The right femoral catheter site appears clean, with the catheter appropriately seated and no bleeding. Result/EKG - Labs CBC & BMP: 02/11/17 04:12 02/09/17 03:52 Lab Results: I have reviewed the past 24 hour labs Labs: Laboratory Results - last 24 hr 02/10/17 02/10/17 02/10/17 15:19 16:57 22:41 WBC RBC Hgb Hct MCV MCH MCHC RDW Plt Count MPV Neut % (Auto) Lymph % (Auto) Hyde % (Auto) Eos % (Auto) Baso % (Auto) Neut # (Auto) Lymph # (Auto) Hyde # (Auto) Eos # (Auto) Baso # (Auto) Immature Gran % Nucleated RBC % Immature Gran # Nucleated RBCs # INR PT Patient/Control Mix Circ Anticoag PTT 48.3 H D 48.5 H POC Glucose 156 H 02/11/17 02/11/17 02/11/17 04:12 04:12 04:12 WBC 4.7 RBC 2.67 L Hgb 8.1 L Hct 25.0 L MCV 93.6 MCH 30 MCHC 32.4 RDW 17.1 Plt Count 115 L MPV 10.5 Neut % (Auto) 62.1 Lymph % (Auto) 26.8 Hyde % (Auto) 6.2 Eos % (Auto) 4.3 Baso % (Auto) 0.2 Neut # (Auto) 2.9 Lymph # (Auto) 1.3 L Hyde # (Auto) 0.3 Eos # (Auto) 0.2 Baso # (Auto) 0.0 Immature Gran % 0.4 Nucleated RBC % 0.0 Immature Gran # 0.02 Nucleated RBCs # 0.00 INR 1.2 PT Patient/Control Mix 12.3 Circ Anticoag PTT 48.3 H POC Glucose 02/11/17 02/11/1702/11/17 07:33 10:00 11:42 WBC RBC Hgb Hct MCV MCH MCHC RDW Plt Count MPV Neut % (Auto) Lymph % (Auto) Hyde % (Auto) Eos % (Auto) Baso % (Auto) Neut # (Auto) Lymph # (Auto) Hyde # (Auto) Eos # (Auto) Baso # (Auto) Immature Gran % Nucleated RBC % Immature Gran # Nucleated RBCs # INR PT Patient/Control Mix Circ Anticoag PTT 39.7 POC Glucose 123 H 123 H
[2017-02-11] MEDS: CINACALCET 30 MG TABLET PO SCH (16:24)
[2017-02-11] MEDS: ALUMINUM/MAGNES/SIMETH MAX STR 30 ML UDCUP PO PRN (16:24)
[2017-02-11] MEDS ORDERED: HEPARIN 5,000 UNIT/1 ML VIAL IV ONE (17:17)
[2017-02-11] MEDS: WARFARIN 3 MG TABLET PO SCH (18:07)
[2017-02-11] MEDS: PRAVASTATIN 20 MG TABLET PO SCH (21:26)
[2017-02-11] MEDS: rOPINIRole 0.25 MG TABLET PO SCH (21:26)
[2017-02-11] MEDS: HEPARIN DRIP 25,000 UNITS/500 ML PREMIX IV SCH (21:33)
[2017-02-12 06:35] LABS: Basophils % 0.4 % (0.0-0.8); Eosinophils # 0.2 10*3/uL (0.0-0.87); Eosinophils % 3.6 % (0.00-10.9); Hematocrit 24.6 VOL% (35.7-47.0); Hemoglobin 7.9 GM/DL (12.0-16.0); Immature Granulocytes % 0.8 %; Immature Granulocytes Absolute 0.04 #; Lymphocytes # 1.4 10*3/uL (1.4-4.0); Lymphocytes % 28.3 % (21.3-54.2); Mean Corpuscular HGB Conc 32.1 GM/DL (32-36); Mean Corpuscular Hemoglobin 30 PG (27-34); Mean Corpuscular Volume 93.2 FL (87-102); Mean Platelet Volume 10.5 FL (9.6-12.0); Monocytes # 0.4 10*3/uL (0.11-0.8); Monocytes % 6.9 % (1.7-12.7); Platelet Count 116 T/CUMM (130-400); Red Blood Count 2.64 MC/CUMM (3.8-5.5); Red Cell Distribution Width 16.7 % (9.3-17.3); White Blood Count 5.1 T/CUMM (4-12)
[2017-02-12 06:43] LABS: INR 1.3; PT Patient Result 13.8 SECS
[2017-02-12] MEDS: LEVOTHYROXINE 100 MCG TABLET PO SCH (06:52)
[2017-02-12] MEDS: amLODIPine 5 MG TABLET PO SCH (08:02)
[2017-02-12] MEDS: tiZANidine 4 MG TABLET PO SCH ×3 (08:02→20:51)
[2017-02-12] MEDS: PANTOPRAZOLE 40 MG TABLET PO SCH (08:02)
[2017-02-12] MEDS: levETIRAcetam 500 MG TABLET PO SCH ×2 (08:02→20:51)
[2017-02-12] MEDS: CALCIUM ACETATE 667 MG CAPSULE PO SCH ×3 (08:02→16:41)
[2017-02-12] MEDS: CARVEDILOL 6.25 MG TABLET PO SCH ×2 (08:03→20:51)
[2017-02-12] MEDS: AZELASTINE NASAL 137 MCG/SPRAY 30 ML BOTTLE BOTH NARES SCH ×2 (08:03→20:52)
[2017-02-12] MEDS: clonazePAM 0.5 MG TABLET PO SCH ×3 (08:03→20:51)
[2017-02-12] MEDS: INSULIN LISPRO 100 UNIT/ML SUBCUT SCH ×4 (08:04→20:18)
--- NOTE | 2017-02-12 10:15 | Dialysis Note ---
Dialysis Note - Dialysis Note Ms. Betancourt is seen during her hemodialysis. She is tolerating this well. Plan is to continue with hemodialysis
--- NOTE | 2017-02-12 10:42 | Event Note ---
I came to see patient but she was out of the room. Dr. Escobar will resume care tomorrow.
[2017-02-12] MEDS: DESITIN 4OZ/NYSTATIN 15 GRAM MIXTURE PASTE TOP SCH ×2 (14:11→20:52)
--- NOTE | 2017-02-12 15:18 | Hospitalist Progress Note ---
Assessment and Plan - Time spent with patient Time spent with patient: Less than 30 minutes (1) Acute blood loss anemia Status: Acute Assessment and plan: H/H slowly trending down Will continue to monitor, might require PRBC transfusion soon Current Visit: Yes (2) Hx of mechanical aortic valve replacement Status: Chronic Assessment and plan: Cardiology managing INR 1.3 today On heparin infusion Current Visit: Yes (3) ESRD on dialysis Status: Chronic Assessment and plan: Nephrology managing Current Visit: Yes (4) Coumadin toxicity Status: Resolved Current Visit: No Qualifiers: Injury intent: accidental or unintentional Hospitalist: Subjective Interval history: No acute events overnight. She reports that her breathing is better but not at her baseline. Exam - Constitutional Vitals: Period Temp Pulse Resp BP Sys/Vargas Pulse Ox Last 24 Hr 97.6 F-98.3 F 60-89 18-21 108-156/60-94 92-96 General appearance: over weight - Head Head exam: Present: normocephalic, atraumatic - Eye Eye exam: Present: EOMI Pupils: Present: NONI - ENT ENT exam: Present: normal exam - Neck Neck exam: Present: normal inspection - Respiratory Respiratory exam: Present: clear to auscultation bilaterally. Absent: wheezes - Cardiovascular Cardiovascular exam: Present: regular rate and rhythm - GI/Abdominal GI/Abdominal exam: Present: normal bowel sounds, soft. Absent: tenderness, rebound - Extremities Exam Extremities exam: Present: normal inspection - Back Exam Back exam: Present: normal inspection - Neurological Exam Neurological exam: Present: alert, oriented X3 - Psychiatric Psychiatric exam: Present: normal affect, normal mood - Skin Skin exam: Present: warm, intact Results - Labs CBC & BMP: 02/12/17 05:49 02/09/17 03:52
[2017-02-12] MEDS: CINACALCET 30 MG TABLET PO SCH (16:41)
[2017-02-12] MEDS: ONDANSETRON 4 MG/2 ML VIAL IM PRN (16:44)
[2017-02-12] MEDS: WARFARIN 3 MG TABLET PO SCH (17:55)
[2017-02-12] MEDS: ONDANSETRON 4 MG/2 ML VIAL IV PRN (20:01)
[2017-02-12] MEDS: rOPINIRole 0.25 MG TABLET PO SCH (20:51)
[2017-02-12] MEDS: PRAVASTATIN 20 MG TABLET PO SCH (20:51)
[2017-02-12] MEDS: MIRTAZAPINE 15 MG TABLET PO PRN (20:51)
[2017-02-12] MEDS: HEPARIN DRIP 25,000 UNITS/500 ML PREMIX IV SCH (20:54)
[2017-02-12] MEDS: ALUMINUM/MAGNES/SIMETH MAX STR 30 ML UDCUP PO PRN (21:54)
[2017-02-13] MEDS: LEVOTHYROXINE 100 MCG TABLET PO SCH (06:28)
[2017-02-13] MEDS: ONDANSETRON 4 MG/2 ML VIAL IV PRN (07:37)
[2017-02-13] MEDS: MORPHINE 2 MG/1 ML SYRINGE IV PRN (07:40)
[2017-02-13 07:45] LABS: Basophils % 0.5 % (0.0-0.8); Eosinophils # 0.2 10*3/uL (0.0-0.87); Eosinophils % 4.6 % (0.00-10.9); Hematocrit 25.2 VOL% (35.7-47.0); Hemoglobin 8.3 GM/DL (12.0-16.0); Immature Granulocytes % 0.5 %; Immature Granulocytes Absolute 0.02 #; Lymphocytes # 1.2 10*3/uL (1.4-4.0); Mean Corpuscular HGB Conc 32.9 GM/DL (32-36); Mean Corpuscular Hemoglobin 31 PG (27-34); Mean Platelet Volume 10.6 FL (9.6-12.0); Monocytes # 0.4 10*3/uL (0.11-0.8); Monocytes % 9.5 % (1.7-12.7); Neutrophils % 52.9 % (38.7-73.9); Platelet Count 119 T/CUMM (130-400); Red Blood Count 2.71 MC/CUMM (3.8-5.5); Red Cell Distribution Width 16.8 % (9.3-17.3); White Blood Count 3.7 T/CUMM (4-12)
[2017-02-13 07:54] LABS: INR 1.4; PT Patient Result 15.4 SECS
[2017-02-13 08:51] LABS: Calcium 8.4 MG/DL (8.5-10.1); Magnesium 1.9 MG/DL (1.8-2.4); Osmolality,Calculated 279.7 MOS/KG (273-304); Potassium 4.4 MMOL/L (3.5-5.1)
[2017-02-13] MEDS: CALCIUM ACETATE 667 MG CAPSULE PO SCH ×3 (09:09→20:34)
[2017-02-13] MEDS: levETIRAcetam 500 MG TABLET PO SCH ×2 (09:10→20:34)
[2017-02-13] MEDS: PANTOPRAZOLE 40 MG TABLET PO SCH (09:11)
[2017-02-13] MEDS: amLODIPine 5 MG TABLET PO SCH (09:11)
[2017-02-13] MEDS: clonazePAM 0.5 MG TABLET PO SCH ×3 (09:11→20:34)
[2017-02-13] MEDS: CARVEDILOL 6.25 MG TABLET PO SCH ×2 (09:11→20:34)
[2017-02-13] MEDS: tiZANidine 4 MG TABLET PO SCH ×3 (09:12→20:34)
[2017-02-13] MEDS: INSULIN LISPRO 100 UNIT/ML SUBCUT SCH ×4 (09:12→20:34)
[2017-02-13] MEDS: DESITIN 4OZ/NYSTATIN 15 GRAM MIXTURE PASTE TOP SCH ×2 (09:14→20:34)
[2017-02-13] MEDS: AZELASTINE NASAL 137 MCG/SPRAY 30 ML BOTTLE BOTH NARES SCH ×2 (09:20→20:35)
[2017-02-13] MEDS: HEPARIN DRIP 25,000 UNITS/500 ML PREMIX IV SCH ×2 (09:48→21:23)
--- NOTE | 2017-02-13 10:45 | Gastrointestinal Progress Note ---
Assessment and Plan (1) Melena Status: Acute Assessment and plan: 02/13-Hgb 8.3, no overt bleeding. Plan and addendum to follow by Dr Luke. 02/08-Hgb 8.4. INR at 1.2. EGD postponed due to no IV access. Reschedule for tomorrow. Plan and addendum to follow by DR Luke. 02/07-hemoglobin down slightly at 8.3. INR is now down to 1.3. No reports of overt bleeding. Tentatively plan for EGD tomorrow to further evaluate pending respiratory status. Plan an addendum to follow Dr. Luke. 02/06-Hgb improved at 8.9, INR improved at 2.7. No reports of overt bleeding. Advance to full liquid diet. Plan and addendum to follow by Dr Luke. 02/05-no further reports of melena, hematochezia. INR remains at 5.5, hemoglobin 7.1. Continue to monitor for any overt bleeding. Continue to monitor serial H&H. Plan an addendum to followed by Dr. Luke. 02/02-reports of melena daily for several months. History of anemia with recent blood transfusion and inpatient stay. Hemoglobin now 6.1 and being transfused 2 units packed red blood cells. On Coumadin therapy for history of mitral valve replacement with INR 4.6 on admission. 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 Plan an addendum to followed by Dr. Luke. Current Visit: Yes Gastroenterology - PN: Subj Interval history: CC: Anemia Pt is seen asleep but awakens to verbal stimuli. States she is feeling nauseated this morning and has had this since the Heparin infusion was started per patient. She denies any vomiting episodes. Hemoglobin is stable at 8.3. She has required no further transfusions since 02/09. INR is stable at 1.4. Abdomen is soft, nontender. ROS: Denies SOB or chest pain Exam (Progress Note) - Constitutional Vitals: Period Temp Pulse Resp BP Sys/Vargas Pulse Ox Last 24 Hr 96.7 F-97.6 F 70-82 18-20 104-156/51-67 92-100 General appearance: normal weight, no acute distress - Head Head exam: Present: normal inspection, normocephalic - Eye Eye exam: Present: other (lids and conjunctiva unremarkable). Absent: scleral icterus - ENT ENT exam: Present: normal exam, normal oropharynx - Neck Neck exam: Present: normal inspection - Respiratory Respiratory exam: Present: clear to auscultation bilaterally. Absent: rales, rhonchi, wheezes - Cardiovascular Cardiovascular exam: Present: regular rate and rhythm. Absent: diastolic murmur , JVD, systolic murmur - GI/Abdominal GI/Abdominal exam: Present: normal bowel sounds, soft. Absent: ascites, distended, mass, organomegaly, tenderness - Extremities Exam Extremities exam: Present: normal inspection, full ROM - Back Exam Back exam: Present: normal inspection - Neurological Exam Neurological exam: Present: alert, oriented X3 - Psychiatric Psychiatric exam: Present: normal affect, normal mood - Skin Skin exam: Present: normal color, warm, dry Results - Labs CBC & BMP: 02/13/17 07:26 02/13/17 07:26 Lab Results: I have reviewed the past 24 hour labs
[2017-02-13] MEDS ORDERED: PROMETHAZINE INJ 12.5 MG in SODIUM CHLORIDE 0.9% 50 ML IV ONE (12:00)
--- NOTE | 2017-02-13 12:07 | Hospitalist Progress Note ---
Assessment and Plan (1) Acute blood loss anemia Status: Acute Assessment and plan: H/H stable Will continue to monitor Current Visit: Yes (2) Hx of mechanical aortic valve replacement Status: Chronic Assessment and plan: Cardiology managing INR 1.4 today On heparin infusion Current Visit: Yes (3) ESRD on dialysis Status: Chronic Assessment and plan: Nephrology managing Current Visit: Yes (4) Coumadin toxicity Status: Resolved Current Visit: No Qualifiers: Injury intent: accidental or unintentional Hospitalist: Subjective Interval history: No acute events overnight. Reports nausea this morning, unrelieved with zofran. Will order dose of IV phenergan. Denies abdominal pain. Exam - Constitutional Vitals: Period Temp Pulse Resp BP Sys/Vargas Pulse Ox Last 24 Hr 96.7 F-97.6 F 70-82 18-20 104-156/51-67 92-100 General appearance: over weight - Head Head exam: Present: normocephalic, atraumatic - Eye Eye exam: Present: EOMI Pupils: Present: NONI - ENT ENT exam: Present: normal exam - Neck Neck exam: Present: normal inspection - Respiratory Respiratory exam: Present: clear to auscultation bilaterally. Absent: wheezes - Cardiovascular Cardiovascular exam: Present: regular rate and rhythm - GI/Abdominal GI/Abdominal exam: Present: normal bowel sounds, soft. Absent: tenderness, rebound - Extremities Exam Extremities exam: Present: normal inspection - Back Exam Back exam: Present: normal inspection - Neurological Exam Neurological exam: Present: alert, oriented X3 - Psychiatric Psychiatric exam: Present: normal affect, normal mood - Skin Skin exam: Present: warm, intact Results - Labs CBC & BMP: 02/13/17 07:26 02/13/17 07:26
--- NOTE | 2017-02-13 12:35 | Cardiology Progress Note ---
Alvaro Crow April RN, am scribing for, and in the presence of, Tom Escobar MD 12:35. Assessment and Plan (1) GI bleed Status: Acute Assessment and plan: Management per GI. Hemoglobin now seems stable. No evidence of ongoing bleeding. Current Visit: Yes (2) Symptomatic anemia Status: Acute Current Visit: Yes (3) ESRD on dialysis Status: Chronic Current Visit: Yes (4) History of mitral valve replacement with mechanical valve Status: Chronic Assessment and plan: Clinically and by exam this is functioning normally. Current Visit: Yes (5) Hx of mechanical aortic valve replacement Status: Chronic Current Visit: Yes (6) Pulmonary hypertension Status: Chronic Current Visit: Yes (7) History of COPD Status: Chronic Current Visit: Yes (8) Chronic anticoagulation Status: Acute Assessment and plan: She is now on a heparin drip awaiting her warfarin to become therapeutic. Current Visit: Yes Cardiology - PN: Subj Interval history: PRIMARY WEIGHT CALLER: DR. CIPRIANO MCCARTHY CARDIOLOGY NOTE: COUMADIN TOXICITY, RECENT MECHANICAL AORTIC VALVE REPLACEMENT, MECHANICAL MITRAL VALVE REPLACEMENT, AND CABG x 1 Ms. Betancourt is a 61-year-old white female with risk significant for: Hypertension , hyperlipidemia, diabetes, former tobacco use. Past medical history includes end-stage renal disease with hemodialysis, COPD, peripheral neuropathy, congestive heart failure, and anemia with GI bleeding. In November 2016, she underwent coronary artery bypass grafting 1 and mechanical aortic valve replacement at [facility] [place]. Patient was just recently discharged on 01/30 after admission for supratherapeutic INR of 18 and acute blood loss anemia. Patient received packed red blood cells and FFP, and Coumadin was able to be resumed and dosage adjusted for therapeutic INR 2.5- 3.5. At time of discharge, her INR was 2.6 without further signs of blood. Patient presented to the ED on the evening of 02/01 with edema, melena, anemia with H/H of 6.6 & 20.7 INR was supratherapeutic 4.6. EGD was performed which did not reveal a source of blood loss. She has a history of partial colectomy and AVMs, and therefore colonoscopy was not going to be pursued. Ms. Betancourt is seen resting in bed in no acute distress. She denies chest pain, palpitations, or dizziness. She reports her breathing is back to her baseline. Her only complaint this morning is of nausea. Heparin is infusing via femoral line so she is still unable to ambulate. Vital signs been stable throughout the night. Her H&H is low, but stable. INR today is 1.4. She dialyzed yesterday. Current Medications Acetaminophen (Tylenol Tab) 325 mg PO Q4H PRN PRN Reason: fever, headache/body aches Last Admin: 02/09/17 23:45 Dose: 325 mg Hydrocodone Bitart/Acetaminophen ([place] 10-325) 1 tablet PO Q6H PRN PRN Reason: Pain Moderate (4-7) Last Admin: 02/13/17 03:55 Dose: 1 tablet Al Hydrox/Mg Hydrox/Simethicone (Mylanta Max Strength Liquid) 30 ml PO Q6H PRN PRN Reason: Dyspepsia Last Admin: 02/12/17 21:54 Dose: 30 ml Albuterol/Ipratropium (Duoneb) 3 ml RESP TX RT Q4H PRN PRN Reason: Wheezing Last Admin: 02/05/17 11:08 Dose: 3 ml Amlodipine Besylate (Norvasc) 5 mg PO DAILY [facility] Last Admin: 02/13/17 09:11 Dose: 5 mg Azelastine HCl (Astelin) 1 spray BOTH NARES BID [facility] Last Admin: 02/13/17 09:20 Dose: 1 spray Calcium Acetate (Phoslo) 667 mg PO TID W/MEALS [facility] Last Admin: 02/13/17 09:09 Dose: 667 mg Carvedilol (Coreg) 6.25 mg PO BID [facility] Last Admin: 02/13/17 09:11 Dose: 6.25 mg Cinacalcet (Sensipar) 60 mg PO DAILY W/SUPPER [facility] Last Admin: 02/12/17 16:41 Dose: 60 mg Clonazepam (Klonopin) 1 mg PO TID [facility] Last Admin: 02/13/17 09:11 Dose: 1 mg Dextrose/Water (D50) 25 gm IV PRN PRN PRN Reason: Hypoglycemia with IV access Glucagon () 1 mg IM PRN PRN PRN Reason: Hypoglycemia w/o IV access Heparin Sodium/Dextrose () 25,000 units in 500 mls @ 17.996 mls/hr IV TITRATE CAYLA; 12 UNITS/KG/HR PRN Reason: Protocol Last Admin: 02/13/17 09:48 Dose: 18 units/kg/hr, 27 mls/hr Insulin Human Lispro (Humalog) 0 unit SUBCUT ACHS [facility] PRN Reason: Protocol Last Admin: 02/13/17 09:12 Dose: 3 unit Levetiracetam (Keppra Tab) 500 mg PO BID [facility] Last Admin: 02/13/17 09:10 Dose: 500 mg Levothyroxine Sodium (Synthroid Tab) 50 mcg PO DAILY@0700 [facility] Last Admin: 02/13/17 06:28 Dose: 50 mcg Mirtazapine (Remeron) 15 mg PO BEDTIME PRN PRN Reason: Sleep Last Admin: 02/12/17 20:51 Dose: 15 mg Morphine Sulfate () 2 mg IV Q4H PRN PRN Reason: Pain Severe (8-10) Last Admin: 02/13/17 07:40 Dose: 2 mg Nystatin/Zinc Oxide (Skin Protectant Mixture) 1 applic TOP BID [facility] Last Admin: 02/13/17 09:14 Dose: 1 applic Ondansetron HCl (Zofran Inj) 4 mg IV Q4H PRN PRN Reason: Nausea Last Admin: 02/13/17 07:37 Dose: 4 mg Pantoprazole Sodium (Protonix Tab) 40 mg PO DAILY [facility] Last Admin: 02/13/17 09:11 Dose: 40 mg Pravastatin Sodium (Pravachol) 20 mg PO BEDTIME [facility] Last Admin: 02/12/17 20:51 Dose: 20 mg Ropinirole HCl (Requip) 0.5 mg PO BEDTIME [facility] Last Admin: 02/12/17 20:51 Dose: 0.5 mg Tizanidine HCl (Zanaflex) 4 mg PO TID [facility] Last Admin: 02/13/17 09:12 Dose: 4 mg Warfarin Sodium (Coumadin) 6 mg PO DAILY@1800 [facility] Last Admin: 02/12/17 17:55 Dose: 6 mg Exam (Progress Note) - Constitutional Vitals: Period Temp Pulse Resp BP Sys/Vargas Pulse Ox Last 24 Hr 96.7 F-97.6 F 70-82 18-20 104-156/51-67 92-100 General appearance: no acute distress, over weight - Head Head exam: Absent: abrasion, hematoma - Eye Eye exam: Absent: periorbital swelling, laceration to eyelids - Respiratory Respiratory exam: Present: clear to auscultation bilaterally. Absent: accessory muscle use, chest wall tenderness - Cardiovascular Cardiovascular exam: Present: regular rate and rhythm, other (Mechanical valve click noted). Absent: rubs - GI/Abdominal GI/Abdominal exam: Present: normal bowel sounds, soft. Absent: distended, tenderness - Extremities Exam Extremities exam: Present: other (Right groin with femoral catheter in place). Absent: edema - Neurological Exam Neurological exam: Present: alert, oriented X3 - Psychiatric Psychiatric exam: Present: normal affect, normal mood - Skin Skin exam: Present: warm, dry Result/EKG - Labs CBC & BMP: 02/13/17 07:26 02/13/17 07:26 Lab Results: I have reviewed the past 24 hour labs Labs: Laboratory Results - last 24 hr 02/12/17 02/12/17 02/12/17 10:42 13:50 15:34 WBC RBC Hgb Hct MCV MCH MCHC RDW Plt Count MPV Neut % (Auto) Lymph % (Auto) [place] % (Auto) Eos % (Auto) Baso % (Auto) Neut # (Auto) Lymph # (Auto) [place] # (Auto) Eos # (Auto) Baso # (Auto) Immature Gran % Nucleated RBC % Immature Gran # Nucleated RBCs # INR PT Patient/Control Mix Circ Anticoag PTT 65.3 H Sodium Potassium Chloride Carbon Dioxide Anion Gap BUN Creatinine GFR Calculation BUN/Creatinine Ratio Glucose POC Glucose 137 H 156 H Calculated Osmolality Calcium Magnesium 02/12/17 02/13/17 02/13/17 18:45 07:26 07:26 WBC 3.7 L RBC 2.71 L Hgb 8.3 L Hct 25.2 L MCV 93.0 MCH 31 MCHC 32.9 RDW 16.8 Plt Count 119 L MPV 10.6 Neut % (Auto) 52.9 Lymph % (Auto) 32.0 [place] % (Auto) 9.5 Eos % (Auto) 4.6 Baso % (Auto) 0.5 Neut # (Auto) 2.0 Lymph # (Auto) 1.2 L [place] # (Auto) 0.4 Eos # (Auto) 0.2 Baso # (Auto) 0.0 Immature Gran % 0.5 Nucleated RBC % 0.0 Immature Gran # 0.02 Nucleated RBCs # 0.00 INR 1.4 PT Patient/Control Mix 15.4 Circ Anticoag PTT Sodium Potassium Chloride Carbon Dioxide Anion Gap BUN Creatinine GFR Calculation BUN/Creatinine Ratio Glucose POC Glucose 214 H Calculated Osmolality Calcium Magnesium 02/13/17 02/13/17 07:26 07:35 WBC RBC Hgb Hct MCV MCH MCHC RDW Plt Count MPV Neut % (Auto) Lymph % (Auto) [place] % (Auto) Eos % (Auto) Baso % (Auto) Neut # (Auto) Lymph # (Auto) [place] # (Auto) Eos # (Auto) Baso # (Auto) Immature Gran % Nucleated RBC % Immature Gran # Nucleated RBCs # INR PT Patient/Control Mix Circ Anticoag PTT Sodium 138 Potassium 4.4 Chloride 100 Carbon Dioxide 26 Anion Gap 16.4 H BUN 18 Creatinine 4.00 H GFR Calculation 12 BUN/Creatinine Ratio 4.00 L Glucose 156 H POC Glucose 164 H Calculated Osmolality 279.7 Calcium 8.4 L Magnesium 1.9 Shawn Crow Michael, MD, personally performed the services described in this documentation, ascribed by Elena John RN in my presence, and it is both accurate and complete 235 .
--- NOTE | 2017-02-13 12:38 | Nephrology Progress Note ---
Nephrology - PN: Subj Interval history: Patient complains of nausea this morning and last night. Review of systems pulmonary she denies shortness of breath Physical exam general patient is in no acute distress, abdomen reveals increased bowel sounds no tenderness, extremities reveal no pitting edema Assessment/plan 1. End-stage renal disease-we will continue HD support 2. Nausea-patient is going to try some Phenergan for this 3. GI bleed-patient's hematocrit stable from yesterday at 25% today 4. Volume overload this is resolved 5. Coumadin toxicity this is resolved Exam (PN)-Nephrology - Vital Signs Vital signs: Period Temp Pulse Resp BP Sys/Vargas Pulse Ox Last 24 Hr 96.7 F-97.6 F 70-82 18-20 104-156/51-67 92-100 - Lab 02/13/17 07:26 02/13/17 07:26 Most recent lab results ABG pH 7.417 (7.35-7.45) 02/05/17 14:25 ABG pCO2 36.9 MM HG (35-48) 02/05/17 14:25 ABG pO2 72.3 MM HG (80-95) L 02/05/17 14:25 ABG HCO3 24.0 MMOL/L (20-26) 02/05/17 14:25 ABG O2 Saturation 94.5 % (95-100) L 02/05/17 14:25 Calcium 8.4 MG/DL (8.5-10.1) L 02/13/17 07:26 Magnesium 1.9 MG/DL (1.8-2.4) 02/13/17 07:26 Assessment and Plan (1) ESRD on dialysis Status: Chronic Assessment and plan: We will plan on hemodialysis today we will try ultrafilter some of the excess fluid in her body as she tolerates, hopefully the blood transfusions during dialysis will allow us to remove some of the excess fluid Current Visit: Yes (2) Volume overload Status: Acute Assessment and plan: This patient's main complaint was swelling in the past few days since she has been discharged. 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 Patient is also been started on amlodipine recently which may be contributing to some of her lower extremity swelling, her blood loss anemia may also be increasing her fluid extravasation and subsequent swelling. Current Visit: Yes (3) GI bleed Status: Acute Assessment and plan: This patient has been having some black tarry stools her hematocrit is fallen around 19% from around 29% at the time of her recent discharge a few days ago. GI medicine has been consulted Current Visit: Yes (4) Melena Status: Acute Current Visit: Yes (5) Symptomatic anemia Status: Acute Current Visit: Yes (6) History of mitral valve replacement with mechanical valve Status: Chronic Current Visit: Yes (7) Pulmonary hypertension Status: Chronic Current Visit: Yes (8) Anemia Status: Acute Current Visit: No Qualifiers: Other causes of anemia: acute posthemorrhagic (9) Diarrhea Status: Chronic Current Visit: No (10) History of COPD Status: Chronic Current Visit: Yes (11) Coumadin toxicity Status: Resolved Current Visit: No Qualifiers: Injury intent: accidental or unintentional
[2017-02-13] MEDS: CINACALCET 30 MG TABLET PO SCH (17:52)
[2017-02-13] MEDS: WARFARIN 3 MG TABLET PO SCH (17:52)
[2017-02-13] MEDS: rOPINIRole 0.25 MG TABLET PO SCH (20:33)
[2017-02-13] MEDS: PROMETHAZINE 25 MG TABLET PO PRN (20:33)
[2017-02-13] MEDS: PRAVASTATIN 20 MG TABLET PO SCH (20:34)
[2017-02-13] MEDS: MIRTAZAPINE 15 MG TABLET PO PRN (20:34)
[2017-02-14] MEDS: HEPARIN DRIP 25,000 UNITS/500 ML PREMIX IV SCH ×2 (04:20→21:43)
[2017-02-14 05:19] LABS: Basophils % 0.7 % (0.0-0.8); Eosinophils # 0.2 10*3/uL (0.0-0.87); Eosinophils % 3.5 % (0.00-10.9); Hematocrit 26.8 VOL% (35.7-47.0); Hemoglobin 8.5 GM/DL (12.0-16.0); Immature Granulocytes % 0.5 %; Immature Granulocytes Absolute 0.02 #; Lymphocytes # 1.3 10*3/uL (1.4-4.0); Lymphocytes % 31.2 % (21.3-54.2); Mean Corpuscular HGB Conc 31.7 GM/DL (32-36); Mean Corpuscular Hemoglobin 30 PG (27-34); Mean Corpuscular Volume 94.7 FL (87-102); Mean Platelet Volume 10.7 FL (9.6-12.0); Monocytes # 0.4 10*3/uL (0.11-0.8); Monocytes % 8.7 % (1.7-12.7); Neutrophils # 2.3 10*3/uL (1.4-7.4); Neutrophils % 55.4 % (38.7-73.9); Platelet Count 121 T/CUMM (130-400); Red Blood Count 2.83 MC/CUMM (3.8-5.5); Red Cell Distribution Width 16.6 % (9.3-17.3); White Blood Count 4.2 T/CUMM (4-12)
[2017-02-14 05:30] LABS: INR 1.6; PT Patient Result 17.5 SECS
[2017-02-14 05:43] LABS: Band Neutrophils 1 % (0-10); Eosinophils 5 % (0-10); Hypochromasia 1+; Lymphocytes 25 % (20-55); Microcytosis 1+; Ovalocytes Slight; Segmented Neutrophils 62 % (50-85); Total Cells Counted 100
[2017-02-14 05:44] LABS: Platelet Estimate Adequate
[2017-02-14 06:09] LABS: Calcium 8.4 MG/DL (8.5-10.1); Magnesium 2.1 MG/DL (1.8-2.4); Osmolality,Calculated 282.5 MOS/KG (273-304); Potassium 4.3 MMOL/L (3.5-5.1)
[2017-02-14] MEDS: LEVOTHYROXINE 100 MCG TABLET PO SCH (06:43)
[2017-02-14] MEDS: tiZANidine 4 MG TABLET PO SCH ×3 (08:30→21:41)
[2017-02-14] MEDS: CALCIUM ACETATE 667 MG CAPSULE PO SCH ×3 (08:30→17:26)
[2017-02-14] MEDS: CARVEDILOL 6.25 MG TABLET PO SCH ×2 (08:30→21:41)
[2017-02-14] MEDS: levETIRAcetam 500 MG TABLET PO SCH ×2 (08:30→21:42)
[2017-02-14] MEDS: PANTOPRAZOLE 40 MG TABLET PO SCH (08:30)
[2017-02-14] MEDS: amLODIPine 5 MG TABLET PO SCH (08:30)
[2017-02-14] MEDS: clonazePAM 0.5 MG TABLET PO SCH ×3 (08:30→21:43)
[2017-02-14] MEDS: INSULIN LISPRO 100 UNIT/ML SUBCUT SCH ×4 (08:32→21:42)
[2017-02-14] MEDS: AZELASTINE NASAL 137 MCG/SPRAY 30 ML BOTTLE BOTH NARES SCH ×2 (08:33→21:42)
[2017-02-14] MEDS: DESITIN 4OZ/NYSTATIN 15 GRAM MIXTURE PASTE TOP SCH ×2 (08:34→21:43)
--- NOTE | 2017-02-14 11:54 | Cardiology Progress Note ---
Alvaro Crow April RN, am scribing for, and in the presence of, Tom Escobar MD 11:53. Assessment and Plan (1) GI bleed Status: Acute Assessment and plan: Management per GI. Hemoglobin now seems stable. No evidence of ongoing bleeding. Current Visit: Yes (2) Symptomatic anemia Status: Acute Current Visit: Yes (3) ESRD on dialysis Status: Chronic Current Visit: Yes (4) History of mitral valve replacement with mechanical valve Status: Chronic Current Visit: Yes (5) Hx of mechanical aortic valve replacement Status: Chronic Current Visit: Yes (6) Pulmonary hypertension Status: Chronic Current Visit: Yes (7) History of COPD Status: Chronic Current Visit: Yes (8) Chronic anticoagulation Status: Chronic Assessment and plan: She is now on a heparin drip awaiting her warfarin to become therapeutic. Current Visit: Yes Cardiology - PN: Subj Interval history: Whiting Machine Operator: Dr. Ni Ms. Betancourt is seen resting in bed in no acute distress. She denies any chest pain, palpitations, shortness of breath, or dizziness. She was changed to Phenergan yesterday, she denies any nausea. Heparin is infusing via femoral line. Vital signs been stable throughout the night. She has had no further bleeding her H&H continues to rise. She is on warfarin 6 mg p.o. daily, INR today is 1.6. He is scheduled to dialyze today. Current Medications Acetaminophen (Tylenol Tab) 325 mg PO Q4H PRN PRN Reason: fever, headache/body aches Last Admin: 02/09/17 23:45 Dose: 325 mg Hydrocodone Bitart/Acetaminophen ([place] 10-325) 1 tablet PO Q6H PRN PRN Reason: Pain Moderate (4-7) Last Admin: 02/13/17 20:33 Dose: 1 tablet Al Hydrox/Mg Hydrox/Simethicone (Mylanta Max Strength Liquid) 30 ml PO Q6H PRN PRN Reason: Dyspepsia Last Admin: 02/12/17 21:54 Dose: 30 ml Albuterol/Ipratropium (Duoneb) 3 ml RESP TX RT Q4H PRN PRN Reason: Wheezing Last Admin: 02/05/17 11:08 Dose: 3 ml Amlodipine Besylate (Norvasc) 5 mg PO DAILY [facility] Last Admin: 02/13/17 09:11 Dose: 5 mg Azelastine HCl (Astelin) 1 spray BOTH NARES BID [facility] Last Admin: 02/13/17 20:35 Dose: 1 spray Calcium Acetate (Phoslo) 667 mg PO TID W/MEALS [facility] Last Admin: 02/13/17 20:34 Dose: 667 mg Carvedilol (Coreg) 6.25 mg PO BID [facility] Last Admin: 02/13/17 20:34 Dose: 6.25 mg Cinacalcet (Sensipar) 60 mg PO DAILY W/SUPPER [facility] Last Admin: 02/13/17 17:52 Dose: 60 mg Clonazepam (Klonopin) 1 mg PO TID [facility] Last Admin: 02/13/17 20:34 Dose: 1 mg Dextrose/Water (D50) 25 gm IV PRN PRN PRN Reason: Hypoglycemia with IV access Glucagon () 1 mg IM PRN PRN PRN Reason: Hypoglycemia w/o IV access Heparin Sodium/Dextrose () 25,000 units in 500 mls @ 17.996 mls/hr IV TITRATE CAYLA; 12 UNITS/KG/HR PRN Reason: Protocol Last Admin: 02/14/17 04:20 Dose: 18 units/kg/hr, 26.99 mls/hr Insulin Human Lispro (Humalog) 0 unit SUBCUT ACHS [facility] PRN Reason: Protocol Last Admin: 02/13/17 20:34 Dose: Not Given Levetiracetam (Keppra Tab) 500 mg PO BID [facility] Last Admin: 02/13/17 20:34 Dose: 500 mg Levothyroxine Sodium (Synthroid Tab) 50 mcg PO DAILY@0700 [facility] Last Admin: 02/14/17 06:43 Dose: 50 mcg Mirtazapine (Remeron) 15 mg PO BEDTIME PRN PRN Reason: Sleep Last Admin: 02/13/17 20:34 Dose: 15 mg Morphine Sulfate () 2 mg IV Q4H PRN PRN Reason: Pain Severe (8-10) Last Admin: 02/13/17 07:40 Dose: 2 mg Nystatin/Zinc Oxide (Skin Protectant Mixture) 1 applic TOP BID [facility] Last Admin: 02/13/17 20:34 Dose: 1 applic Ondansetron HCl (Zofran Inj) 4 mg IV Q4H PRN PRN Reason: Nausea Last Admin: 02/13/17 07:37 Dose: 4 mg Pantoprazole Sodium (Protonix Tab) 40 mg PO DAILY [facility] Last Admin: 02/13/17 09:11 Dose: 40 mg Pravastatin Sodium (Pravachol) 20 mg PO BEDTIME [facility] Last Admin: 02/13/17 20:34 Dose: 20 mg Promethazine HCl (Phenergan Tab) 12.5 mg PO Q4H PRN PRN Reason: Nausea/Vomiting Last Admin: 02/13/17 20:33 Dose: 12.5 mg Ropinirole HCl (Requip) 0.5 mg PO BEDTIME [facility] Last Admin: 02/13/17 20:33 Dose: 0.5 mg Tizanidine HCl (Zanaflex) 4 mg PO TID [facility] Last Admin: 02/13/17 20:34 Dose: 4 mg Warfarin Sodium (Coumadin) 6 mg PO DAILY@1800 [facility] Last Admin: 02/13/17 17:52 Dose: 6 mg Exam (Progress Note) - Constitutional Vitals: Period Temp Pulse Resp BP Sys/Vargas Pulse Ox Last 24 Hr 96.7 F-98.4 F 74-81 16-20 111-151/56-91 91-100 General appearance: no acute distress, over weight - Head Head exam: Absent: abrasion, hematoma - Eye Eye exam: Absent: periorbital swelling, laceration to eyelids - Neck Neck exam: Absent: tenderness - Respiratory Respiratory exam: Present: clear to auscultation bilaterally. Absent: accessory muscle use, chest wall tenderness - Cardiovascular Cardiovascular exam: Present: regular rate and rhythm, other (Mechanical valve click noted). Absent: rubs - GI/Abdominal GI/Abdominal exam: Present: normal bowel sounds, soft. Absent: distended, tenderness - Extremities Exam Extremities exam: Present: other (Right groin with femoral catheter in place). Absent: edema - Neurological Exam Neurological exam: Present: alert, oriented X3 - Psychiatric Psychiatric exam: Present: normal affect, normal mood - Skin Skin exam: Present: warm, dry Result/EKG - Labs CBC & BMP: 02/14/17 04:58 02/14/17 04:58 Lab Results: I have reviewed the past 24 hour labs Labs: Laboratory Results - last 24 hr 02/13/17 02/13/17 02/13/17 07:26 07:26 07:26 WBC 3.7 L RBC 2.71 L Hgb 8.3 L Hct 25.2 L MCV 93.0 MCH 31 MCHC 32.9 RDW 16.8 Plt Count 119 L MPV 10.6 Neut % (Auto) 52.9 Lymph % (Auto) 32.0 [place] % (Auto) 9.5 Eos % (Auto) 4.6 Baso % (Auto) 0.5 Neut # (Auto) 2.0 Lymph # (Auto) 1.2 L [place] # (Auto) 0.4 Eos # (Auto) 0.2 Baso # (Auto) 0.0 Total Counted Immature Gran % 0.5 Nucleated RBC % 0.0 Immature Gran # 0.02 Segmented Neutrophils Band Neutrophils Lymphocytes Monocytes Eosinophils Nucleated RBCs # 0.00 Platelet Estimate Hypochromasia Microcytosis Ovalocytes INR 1.4 PT Patient/Control Mix 15.4 Sodium 138 Potassium 4.4 Chloride 100 Carbon Dioxide 26 Anion Gap 16.4 H BUN 18 Creatinine 4.00 H GFR Calculation 12 BUN/Creatinine Ratio 4.00 L Glucose 156 H POC Glucose Calculated Osmolality 279.7 Calcium 8.4 L Magnesium 1.9 02/13/17 02/13/17 02/13/17 11:35 11:54 16:05 WBC RBC Hgb Hct MCV MCH MCHC RDW Plt Count MPV Neut % (Auto) Lymph % (Auto) [place] % (Auto) Eos % (Auto) Baso % (Auto) Neut # (Auto) Lymph # (Auto) [place] # (Auto) Eos # (Auto) Baso # (Auto) Total Counted Immature Gran % Nucleated RBC % Immature Gran # Segmented Neutrophils Band Neutrophils Lymphocytes Monocytes Eosinophils Nucleated RBCs # Platelet Estimate Hypochromasia Microcytosis Ovalocytes INR PT Patient/Control Mix Sodium Potassium Chloride Carbon Dioxide Anion Gap BUN Creatinine GFR Calculation BUN/Creatinine Ratio Glucose POC Glucose 102 139 H 116 H Calculated Osmolality Calcium Magnesium 02/13/17 02/14/17 02/14/17 19:12 04:58 04:58 WBC 4.2 RBC 2.83 L Hgb 8.5 L Hct 26.8 L MCV 94.7 MCH 30 MCHC 31.7 L RDW 16.6 Plt Count 121 L MPV 10.7 Neut % (Auto) 55.4 Lymph % (Auto) 31.2 [place] % (Auto) 8.7 Eos % (Auto) 3.5 Baso % (Auto) 0.7 Neut # (Auto) 2.3 Lymph # (Auto) 1.3 L [place] # (Auto) 0.4 Eos # (Auto) 0.2 Baso # (Auto) 0.0 Total Counted 100 Immature Gran % 0.5 Nucleated RBC % 0.0 Immature Gran # 0.02 Segmented Neutrophils 62 Band Neutrophils 1 Lymphocytes 25 Monocytes 7 Eosinophils 5 Nucleated RBCs # 0.00 Platelet Estimate Adequate Hypochromasia 1+ Microcytosis 1+ Ovalocytes Slight INR 1.6 PT Patient/Control Mix 17.5 Sodium Potassium Chloride Carbon Dioxide Anion Gap BUN Creatinine GFR Calculation BUN/Creatinine Ratio Glucose POC Glucose 178 H Calculated Osmolality Calcium Magnesium 02/14/17 04:58 WBC RBC Hgb Hct MCV MCH MCHC RDW Plt Count MPV Neut % (Auto) Lymph % (Auto) [place] % (Auto) Eos % (Auto) Baso % (Auto) Neut # (Auto) Lymph # (Auto) [place] # (Auto) Eos # (Auto) Baso # (Auto) Total Counted Immature Gran % Nucleated RBC % Immature Gran # Segmented Neutrophils Band Neutrophils Lymphocytes Monocytes Eosinophils Nucleated RBCs # Platelet Estimate Hypochromasia Microcytosis Ovalocytes INR PT Patient/Control Mix Sodium 139 Potassium 4.3 Chloride 101 Carbon Dioxide 27 Anion Gap 15.3 H BUN 29 H D Creatinine 5.40 H GFR Calculation 8 BUN/Creatinine Ratio 5.00 L Glucose 106 POC Glucose Calculated Osmolality 282.5 Calcium 8.4 L Magnesium 2.1 Shawn Crow Michael, MD, personally performed the services described in this documentation, ascribed by Elena John RN in my presence, and it is both accurate and complete 153 .
--- NOTE | 2017-02-14 12:36 | Nephrology Progress Note ---
Nephrology - PN: Subj Interval history: Patient is seen on hemodialysis, she is tolerating this well will continue her treatment unchanged Assessment/plan 1. End-stage renal disease 2. GI bleed 3. Valvular heart disease with valve replacements-patient's been on Coumadin she presented with Coumadin toxicity and bleeding, and talking to the patient it sounds like she eats a lot of leafy green vegetables including spinach and lettuce. I explained the effects these have on changing her blood thinning level. She seemed to understand. I am going to have the dietitian come by and talk to her further about this. Exam (PN)-Nephrology - Vital Signs Vital signs: Period Temp Pulse Resp BP Sys/Vargas Pulse Ox Last 24 Hr 97.4 F-98.4 F 74-81 16-20 111-151/56-91 91-100 - Lab 02/14/17 04:58 02/14/17 04:58 Most recent lab results ABG pH 7.417 (7.35-7.45) 02/05/17 14:25 ABG pCO2 36.9 MM HG (35-48) 02/05/17 14:25 ABG pO2 72.3 MM HG (80-95) L 02/05/17 14:25 ABG HCO3 24.0 MMOL/L (20-26) 02/05/17 14:25 ABG O2 Saturation 94.5 % (95-100) L 02/05/17 14:25 Calcium 8.4 MG/DL (8.5-10.1) L 02/14/17 04:58 Magnesium 2.1 MG/DL (1.8-2.4) 02/14/17 04:58 Assessment and Plan (1) ESRD on dialysis Status: Chronic Assessment and plan: We will plan on hemodialysis today we will try ultrafilter some of the excess fluid in her body as she tolerates, hopefully the blood transfusions during dialysis will allow us to remove some of the excess fluid Current Visit: Yes (2) Volume overload Status: Acute Assessment and plan: This patient's main complaint was swelling in the past few days since she has been discharged. 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 Patient is also been started on amlodipine recently which may be contributing to some of her lower extremity swelling, her blood loss anemia may also be increasing her fluid extravasation and subsequent swelling. Current Visit: Yes (3) GI bleed Status: Acute Assessment and plan: This patient has been having some black tarry stools her hematocrit is fallen around 19% from around 29% at the time of her recent discharge a few days ago. GI medicine has been consulted Current Visit: Yes (4) Melena Status: Acute Current Visit: Yes (5) Symptomatic anemia Status: Acute Current Visit: Yes (6) History of mitral valve replacement with mechanical valve Status: Chronic Current Visit: Yes (7) Pulmonary hypertension Status: Chronic Current Visit: Yes (8) Anemia Status: Acute Current Visit: No Qualifiers: Other causes of anemia: acute posthemorrhagic (9) Diarrhea Status: Chronic Current Visit: No (10) History of COPD Status: Chronic Current Visit: Yes (11) Coumadin toxicity Status: Resolved Current Visit: No Qualifiers: Injury intent: accidental or unintentional
--- NOTE | 2017-02-14 15:20 | Hospitalist Progress Note ---
Assessment and Plan (1) Acute blood loss anemia Status: Acute Assessment and plan: H/H stable Will continue to monitor Current Visit: Yes (2) Hx of mechanical aortic valve replacement Status: Chronic Assessment and plan: Cardiology managing INR 1.6 today On heparin infusion Current Visit: Yes (3) ESRD on dialysis Status: Chronic Assessment and plan: Nephrology managing Current Visit: Yes (4) Coumadin toxicity Status: Resolved Current Visit: No Qualifiers: Injury intent: accidental or unintentional Hospitalist: Subjective Interval history: No acute events overnight. Reports that she feels much better today. Exam - Constitutional Vitals: Period Temp Pulse Resp BP Sys/Vargas Pulse Ox Last 24 Hr 97.4 F-98.4 F 74-81 18-20 111-151/56-91 91-100 General appearance: over weight - Head Head exam: Present: normocephalic, atraumatic - Eye Eye exam: Present: EOMI Pupils: Present: NONI - ENT ENT exam: Present: normal exam - Neck Neck exam: Present: normal inspection - Respiratory Respiratory exam: Present: clear to auscultation bilaterally - Cardiovascular Cardiovascular exam: Present: regular rate and rhythm - GI/Abdominal GI/Abdominal exam: Present: normal bowel sounds, soft. Absent: tenderness, rebound - Extremities Exam Extremities exam: Present: normal inspection - Back Exam Back exam: Present: normal inspection - Neurological Exam Neurological exam: Present: alert, oriented X3 - Psychiatric Psychiatric exam: Present: normal affect, normal mood - Skin Skin exam: Present: warm, intact Results - Labs CBC & BMP: 02/14/17 04:58 02/14/17 04:58
[2017-02-14] MEDS: CINACALCET 30 MG TABLET PO SCH (17:26)
[2017-02-14] MEDS: WARFARIN 3 MG TABLET PO SCH (17:26)
[2017-02-14] MEDS: rOPINIRole 0.25 MG TABLET PO SCH (21:41)
[2017-02-14] MEDS: PRAVASTATIN 20 MG TABLET PO SCH (21:42)
[2017-02-15 05:16] LABS: Basophils % 0.5 % (0.0-0.8); Eosinophils # 0.2 10*3/uL (0.0-0.87); Eosinophils % 4.1 % (0.00-10.9); Hemoglobin 7.9 GM/DL (12.0-16.0); Immature Granulocytes % 1.5 %; Immature Granulocytes Absolute 0.06 #; Lymphocytes # 1.4 10*3/uL (1.4-4.0); Mean Corpuscular HGB Conc 32.9 GM/DL (32-36); Mean Corpuscular Hemoglobin 31 PG (27-34); Mean Corpuscular Volume 92.7 FL (87-102); Mean Platelet Volume 10.6 FL (9.6-12.0); Monocytes # 0.4 10*3/uL (0.11-0.8); Monocytes % 9.2 % (1.7-12.7); Neutrophils # 1.9 10*3/uL (1.4-7.4); Neutrophils % 48.7 % (38.7-73.9); Platelet Count 118 T/CUMM (130-400); Red Blood Count 2.59 MC/CUMM (3.8-5.5); Red Cell Distribution Width 16.5 % (9.3-17.3); White Blood Count 3.9 T/CUMM (4-12)
[2017-02-15 05:32] LABS: INR 1.7; PT Patient Result 18.9 SECS
[2017-02-15 05:44] LABS: Calcium 8.3 MG/DL (8.5-10.1); Osmolality,Calculated 267.2 MOS/KG (273-304); Potassium 4.1 MMOL/L (3.5-5.1)
[2017-02-15] MEDS: LEVOTHYROXINE 100 MCG TABLET PO SCH (06:37)
[2017-02-15] MEDS: INSULIN LISPRO 100 UNIT/ML SUBCUT SCH ×4 (07:54→20:58)
[2017-02-15] MEDS: ONDANSETRON 4 MG/2 ML VIAL IV PRN ×2 (08:29→20:18)
[2017-02-15] MEDS: CALCIUM ACETATE 667 MG CAPSULE PO SCH ×3 (08:35→17:20)
--- NOTE | 2017-02-15 10:58 | Hospitalist Progress Note ---
Assessment and Plan (1) Acute blood loss anemia Status: Acute Assessment and plan: H/H a little lower today Will continue to monitor Current Visit: Yes (2) Hx of mechanical aortic valve replacement Status: Chronic Assessment and plan: Cardiology managing INR 1.7 today, increasing a little daily On heparin infusion Current Visit: Yes (3) ESRD on dialysis Status: Chronic Assessment and plan: Nephrology managing Current Visit: Yes (4) Coumadin toxicity Status: Resolved Current Visit: No Qualifiers: Injury intent: accidental or unintentional Hospitalist: Subjective Interval history: No acute events overnight. Reports nausea this am, she just received an anti- emetic. Exam - Constitutional Vitals: Period Temp Pulse Resp BP Sys/Vargas Pulse Ox Last 24 Hr 97.5 F-98.9 F 76-89 18-20 131-173/61-81 92-96 General appearance: normal weight, over weight - Head Head exam: Present: normocephalic, atraumatic - Eye Eye exam: Present: EOMI Pupils: Present: NONI - ENT ENT exam: Present: normal exam - Neck Neck exam: Present: normal inspection - Respiratory Respiratory exam: Present: clear to auscultation bilaterally - Cardiovascular Cardiovascular exam: Present: regular rate and rhythm - GI/Abdominal GI/Abdominal exam: Present: normal bowel sounds, soft. Absent: tenderness, rebound - Extremities Exam Extremities exam: Present: normal inspection - Back Exam Back exam: Present: normal inspection - Neurological Exam Neurological exam: Present: alert, oriented X3 - Psychiatric Psychiatric exam: Present: normal affect, normal mood - Skin Skin exam: Present: warm, intact Results - Labs CBC & BMP: 02/15/17 04:26 02/15/17 04:26
[2017-02-15] MEDS: amLODIPine 5 MG TABLET PO SCH (11:20)
[2017-02-15] MEDS: levETIRAcetam 500 MG TABLET PO SCH ×3 (11:20→21:49)
[2017-02-15] MEDS: CARVEDILOL 6.25 MG TABLET PO SCH ×3 (11:20→21:49)
[2017-02-15] MEDS: PANTOPRAZOLE 40 MG TABLET PO SCH (11:20)
[2017-02-15] MEDS: clonazePAM 0.5 MG TABLET PO SCH ×3 (11:20→21:55)
[2017-02-15] MEDS: DESITIN 4OZ/NYSTATIN 15 GRAM MIXTURE PASTE TOP SCH ×3 (11:20→21:56)
[2017-02-15] MEDS: tiZANidine 4 MG TABLET PO SCH ×3 (11:21→21:49)
--- NOTE | 2017-02-15 13:20 | Nephrology Progress Note ---
Nephrology - PN: Subj Interval history: Patient denies shortness of breath. Review of systems GI she denies nausea or vomiting Physical exam general the patient is in no acute distress Assessment/plan 1. End-stage renal disease-we will continue hemodialysis support 2. GI bleed-this seems to have resolved we will continue to monitor hematocrit 3. Volume overload-patient has compensated and at a good volemic state presently 4. Valvular heart disease-this patient's had mechanical heart valve replacement she is on Coumadin and heparin presently, her INR was 1.7 today. Exam (PN)-Nephrology - Vital Signs Vital signs: Period Temp Pulse Resp BP Sys/Vargas Pulse Ox Last 24 Hr 97.5 F-98.9 F 76-89 18-20 131-173/61-81 92-96 - Lab 02/15/17 04:26 02/15/17 04:26 Most recent lab results ABG pH 7.417 (7.35-7.45) 02/05/17 14:25 ABG pCO2 36.9 MM HG (35-48) 02/05/17 14:25 ABG pO2 72.3 MM HG (80-95) L 02/05/17 14:25 ABG HCO3 24.0 MMOL/L (20-26) 02/05/17 14:25 ABG O2 Saturation 94.5 % (95-100) L 02/05/17 14:25 Calcium 8.3 MG/DL (8.5-10.1) L 02/15/17 04:26 Magnesium 2.0 MG/DL (1.8-2.4) 02/15/17 04:26 Assessment and Plan (1) ESRD on dialysis Status: Chronic Assessment and plan: We will plan on hemodialysis today we will try ultrafilter some of the excess fluid in her body as she tolerates, hopefully the blood transfusions during dialysis will allow us to remove some of the excess fluid Current Visit: Yes (2) Volume overload Status: Acute Assessment and plan: This patient's main complaint was swelling in the past few days since she has been discharged. 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 Patient is also been started on amlodipine recently which may be contributing to some of her lower extremity swelling, her blood loss anemia may also be increasing her fluid extravasation and subsequent swelling. Current Visit: Yes (3) GI bleed Status: Acute Assessment and plan: This patient has been having some black tarry stools her hematocrit is fallen around 19% from around 29% at the time of her recent discharge a few days ago. GI medicine has been consulted Current Visit: Yes (4) Melena Status: Acute Current Visit: Yes (5) Symptomatic anemia Status: Acute Current Visit: Yes (6) History of mitral valve replacement with mechanical valve Status: Chronic Current Visit: Yes (7) Pulmonary hypertension Status: Chronic Current Visit: Yes (8) Anemia Status: Acute Current Visit: No Qualifiers: Other causes of anemia: acute posthemorrhagic (9) Diarrhea Status: Chronic Current Visit: No (10) History of COPD Status: Chronic Current Visit: Yes (11) Coumadin toxicity Status: Resolved Current Visit: No Qualifiers: Injury intent: accidental or unintentional
--- NOTE | 2017-02-15 14:23 | Cardiology Progress Note ---
Alvaro Crow April RN, am scribing for, and in the presence of, Tom Escobar MD 14:23. Assessment and Plan (1) GI bleed Status: Acute Assessment and plan: Management per GI. No evidence of ongoing bleeding. Current Visit: Yes (2) Symptomatic anemia Status: Acute Current Visit: Yes (3) ESRD on dialysis Status: Chronic Current Visit: Yes (4) History of mitral valve replacement with mechanical valve Status: Chronic Assessment and plan: Clinically this is functioning normally. We are waiting on her INR to be therapeutic. Current Visit: Yes (5) Hx of mechanical aortic valve replacement Status: Chronic Assessment and plan: Clinically this is functioning normally. We are awaiting her INR to be therapeutic. Current Visit: Yes (6) Pulmonary hypertension Status: Chronic Current Visit: Yes (7) History of COPD Status: Chronic Current Visit: Yes (8) Chronic anticoagulation Status: Chronic Assessment and plan: She is now on a heparin drip awaiting her warfarin to become therapeutic. Current Visit: Yes Cardiology - PN: Subj Interval history: [employer]: Dr. Ni Ms. Betancourt is seen resting in bed no acute distress. She denies any chest pain, palpitations, shortness of breath or dizziness. She does report she is nauseated again this morning. She denies any further known bleeding. H&H has dropped a bit this morning to 7.9 and 24. Heparin is infusing via right femoral line. INR today is up to 1.7. Current Medications Acetaminophen (Tylenol Tab) 325 mg PO Q4H PRN PRN Reason: fever, headache/body aches Last Admin: 02/09/17 23:45 Dose: 325 mg Hydrocodone Bitart/Acetaminophen ([place] 10-325) 1 tablet PO Q6H PRN PRN Reason: Pain Moderate (4-7) Last Admin: 02/14/17 08:30 Dose: 1 tablet Al Hydrox/Mg Hydrox/Simethicone (Mylanta Max Strength Liquid) 30 ml PO Q6H PRN PRN Reason: Dyspepsia Last Admin: 02/12/17 21:54 Dose: 30 ml Albuterol/Ipratropium (Duoneb) 3 ml RESP TX RT Q4H PRN PRN Reason: Wheezing Last Admin: 02/05/17 11:08 Dose: 3 ml Amlodipine Besylate (Norvasc) 5 mg PO DAILY [facility] Last Admin: 02/14/17 08:30 Dose: 5 mg Azelastine HCl (Astelin) 1 spray BOTH NARES BID [facility] Last Admin: 02/14/17 21:42 Dose: 1 spray Calcium Acetate (Phoslo) 667 mg PO TID W/MEALS [facility] Last Admin: 02/14/17 17:26 Dose: 667 mg Carvedilol (Coreg) 6.25 mg PO BID [facility] Last Admin: 02/14/17 21:41 Dose: 6.25 mg Cinacalcet (Sensipar) 60 mg PO DAILY W/SUPPER [facility] Last Admin: 02/14/17 17:26 Dose: 60 mg Clonazepam (Klonopin) 1 mg PO TID [facility] Last Admin: 02/14/17 21:43 Dose: 1 mg Dextrose/Water (D50) 25 gm IV PRN PRN PRN Reason: Hypoglycemia with IV access Glucagon () 1 mg IM PRN PRN PRN Reason: Hypoglycemia w/o IV access Heparin Sodium/Dextrose () 25,000 units in 500 mls @ 17.996 mls/hr IV TITRATE [facility]; 12 UNITS/KG/HR PRN Reason: Protocol Last Admin: 02/14/17 21:43 Dose: 18 units/kg/hr, 27 mls/hr Insulin Human Lispro (Humalog) 0 unit SUBCUT ACHS [facility] PRN Reason: Protocol Last Admin: 02/15/17 07:54 Dose: Not Given Levetiracetam (Keppra Tab) 500 mg PO BID [facility] Last Admin: 02/14/17 21:42 Dose: 500 mg Levothyroxine Sodium (Synthroid Tab) 50 mcg PO DAILY@0700 [facility] Last Admin: 02/15/17 06:37 Dose: 50 mcg Mirtazapine (Remeron) 15 mg PO BEDTIME PRN PRN Reason: Sleep Last Admin: 02/13/17 20:34 Dose: 15 mg Nystatin/Zinc Oxide (Skin Protectant Mixture) 1 applic TOP BID [facility] Last Admin: 02/14/17 21:43 Dose: 1 applic Ondansetron HCl (Zofran Inj) 4 mg IV Q4H PRN PRN Reason: Nausea Last Admin: 02/13/17 07:37 Dose: 4 mg Pantoprazole Sodium (Protonix Tab) 40 mg PO DAILY [facility] Last Admin: 02/14/17 08:30 Dose: 40 mg Pravastatin Sodium (Pravachol) 20 mg PO BEDTIME [facility] Last Admin: 02/14/17 21:42 Dose: 20 mg Promethazine HCl (Phenergan Tab) 12.5 mg PO Q4H PRN PRN Reason: Nausea/Vomiting Last Admin: 02/13/17 20:33 Dose: 12.5 mg Ropinirole HCl (Requip) 0.5 mg PO BEDTIME [facility] Last Admin: 02/14/17 21:41 Dose: 0.5 mg Tizanidine HCl (Zanaflex) 4 mg PO TID [facility] Last Admin: 02/14/17 21:41 Dose: 4 mg Warfarin Sodium (Coumadin) 6 mg PO DAILY@1800 [facility] Last Admin: 02/14/17 17:26 Dose: 6 mg Exam (Progress Note) - Constitutional Vitals: Period Temp Pulse Resp BP Sys/Vargas Pulse Ox Last 24 Hr 97.5 F-98.9 F 76-89 18-20 131-173/61-81 92-96 General appearance: no acute distress, over weight - Head Head exam: Absent: abrasion, hematoma - Eye Eye exam: Absent: periorbital swelling, laceration to eyelids - Respiratory Respiratory exam: Present: clear to auscultation bilaterally. Absent: accessory muscle use, chest wall tenderness - Cardiovascular Cardiovascular exam: Present: regular rate and rhythm, other (Mechanical valve click noted) - GI/Abdominal GI/Abdominal exam: Present: normal bowel sounds, soft. Absent: distended, tenderness - Extremities Exam Extremities exam: Present: other (Right groin with femoral catheter in place). Absent: edema - Neurological Exam Neurological exam: Present: alert, oriented X3 - Psychiatric Psychiatric exam: Present: normal affect, normal mood - Skin Skin exam: Present: warm, dry Result/EKG - Labs CBC & BMP: 02/15/17 04:26 02/15/17 04:26 Lab Results: I have reviewed the past 24 hour labs Labs: Laboratory Results - last 24 hr 02/14/17 02/14/17 02/15/17 16:46 21:20 04:26 WBC 3.9 L RBC 2.59 L Hgb 7.9 L Hct 24.0 L MCV 92.7 MCH 31 MCHC 32.9 RDW 16.5 Plt Count 118 L MPV 10.6 Neut % (Auto) 48.7 Lymph % (Auto) 36.0 [place] % (Auto) 9.2 Eos % (Auto) 4.1 Baso % (Auto) 0.5 Neut # (Auto) 1.9 Lymph # (Auto) 1.4 [place] # (Auto) 0.4 Eos # (Auto) 0.2 Baso # (Auto) 0.0 Immature Gran % 1.5 Nucleated RBC % 0.0 Immature Gran # 0.06 Nucleated RBCs # 0.00 INR PT Patient/Control Mix Circ Anticoag PTT Sodium Potassium Chloride Carbon Dioxide Anion Gap BUN Creatinine GFR Calculation BUN/Creatinine Ratio Glucose POC Glucose 162 H 131 H Calculated Osmolality Calcium Magnesium 02/15/17 02/15/17 02/15/17 04:26 04:26 04:26 WBC RBC Hgb Hct MCV MCH MCHC RDW Plt Count MPV Neut % (Auto) Lymph % (Auto) [place] % (Auto) Eos % (Auto) Baso % (Auto) Neut # (Auto) Lymph # (Auto) [place] # (Auto) Eos # (Auto) Baso # (Auto) Immature Gran % Nucleated RBC % Immature Gran # Nucleated RBCs # INR 1.7 PT Patient/Control Mix 18.9 Circ Anticoag PTT 63.6 H Sodium 134 L Potassium 4.1 Chloride 95 L Carbon Dioxide 29 Anion Gap 14.1 BUN 12 D Creatinine 3.20 H GFR Calculation 16 BUN/Creatinine Ratio 3.00 L Glucose 98 POC Glucose Calculated Osmolality 267.2 L Calcium 8.3 L Magnesium 2.0 02/15/17 07:51 WBC RBC Hgb Hct MCV MCH MCHC RDW Plt Count MPV Neut % (Auto) Lymph % (Auto) [place] % (Auto) Eos % (Auto) Baso % (Auto) Neut # (Auto) Lymph # (Auto) [place] # (Auto) Eos # (Auto) Baso # (Auto) Immature Gran % Nucleated RBC % Immature Gran # Nucleated RBCs # INR PT Patient/Control Mix Circ Anticoag PTT Sodium Potassium Chloride Carbon Dioxide Anion Gap BUN Creatinine GFR Calculation BUN/Creatinine Ratio Glucose POC Glucose 129 H Calculated Osmolality Calcium Magnesium Shawn Crow Michael, MD, personally performed the services described in this documentation, ascribed by Elena John RN in my presence, and it is both accurate and complete 423 .
[2017-02-15] MEDS: AZELASTINE NASAL 137 MCG/SPRAY 30 ML BOTTLE BOTH NARES SCH ×2 (15:17→21:52)
[2017-02-15] MEDS: WARFARIN 3 MG TABLET PO SCH (17:20)
[2017-02-15] MEDS: CINACALCET 30 MG TABLET PO SCH (17:20)
[2017-02-15] MEDS: PROMETHAZINE 25 MG TABLET PO PRN (17:20)
[2017-02-15] MEDS: HEPARIN DRIP 25,000 UNITS/500 ML PREMIX IV SCH (19:00)
[2017-02-15] MEDS: PRAVASTATIN 20 MG TABLET PO SCH (21:49)
[2017-02-15] MEDS: rOPINIRole 0.25 MG TABLET PO SCH (21:49)
[2017-02-16 05:20] LABS: Basophils % 0.3 % (0.0-0.8); Eosinophils # 0.1 10*3/uL (0.0-0.87); Eosinophils % 3.3 % (0.00-10.9); Hematocrit 22.9 VOL% (35.7-47.0); Hemoglobin 7.3 GM/DL (12.0-16.0); Immature Granulocytes % 0.8 %; Immature Granulocytes Absolute 0.03 #; Lymphocytes # 1.3 10*3/uL (1.4-4.0); Lymphocytes % 33.6 % (21.3-54.2); Mean Corpuscular HGB Conc 31.9 GM/DL (32-36); Mean Corpuscular Hemoglobin 29 PG (27-34); Mean Corpuscular Volume 92.3 FL (87-102); Mean Platelet Volume 11.1 FL (9.6-12.0); Monocytes # 0.4 10*3/uL (0.11-0.8); Monocytes % 9.1 % (1.7-12.7); Neutrophils # 2.1 10*3/uL (1.4-7.4); Neutrophils % 52.9 % (38.7-73.9); Platelet Count 143 T/CUMM (130-400); Red Blood Count 2.48 MC/CUMM (3.8-5.5); Red Cell Distribution Width 16.6 % (9.3-17.3)
[2017-02-16 05:28] LABS: INR 2.2
[2017-02-16] MEDS: ONDANSETRON 4 MG/2 ML VIAL IV PRN (05:30)
[2017-02-16 05:34] LABS: PT Patient Result 24.6 SECS
[2017-02-16 06:09] LABS: Calcium 7.9 MG/DL (8.5-10.1); Osmolality,Calculated 277.8 MOS/KG (273-304); Potassium 4.1 MMOL/L (3.5-5.1)
[2017-02-16] MEDS: LEVOTHYROXINE 100 MCG TABLET PO SCH (06:15)
[2017-02-16] MEDS: DESITIN 4OZ/NYSTATIN 15 GRAM MIXTURE PASTE TOP SCH ×2 (07:15→20:29)
[2017-02-16] MEDS: INSULIN LISPRO 100 UNIT/ML SUBCUT SCH ×4 (08:18→20:38)
[2017-02-16] MEDS: CALCIUM ACETATE 667 MG CAPSULE PO SCH ×3 (08:28→17:58)
[2017-02-16] MEDS: PROMETHAZINE 25 MG TABLET PO PRN (08:29)
[2017-02-16] MEDS: PANTOPRAZOLE 40 MG TABLET PO SCH (08:29)
[2017-02-16] MEDS: levETIRAcetam 500 MG TABLET PO SCH ×2 (08:31→20:27)
[2017-02-16] MEDS: CARVEDILOL 6.25 MG TABLET PO SCH ×2 (08:32→20:27)
[2017-02-16] MEDS: tiZANidine 4 MG TABLET PO SCH ×3 (08:32→20:28)
[2017-02-16] MEDS: amLODIPine 5 MG TABLET PO SCH (08:32)
[2017-02-16] MEDS: clonazePAM 0.5 MG TABLET PO SCH ×3 (08:33→20:27)
[2017-02-16] MEDS: AZELASTINE NASAL 137 MCG/SPRAY 30 ML BOTTLE BOTH NARES SCH ×2 (08:36→20:29)
[2017-02-16] MEDS ORDERED: EPOETIN ALFA 10,000 UNIT/1 ML VIAL IV PRN (09:40)
--- NOTE | 2017-02-16 09:40 | Nephrology Progress Note ---
Nephrology - PN: Subj Interval history: Patient is seen on hemodialysis, she is tolerating this well will continue her treatment unchanged. The patient has no complaints. Her INR is up to 2.2 Assessment/plan 1. End-stage renal disease-we will continue hemodialysis 2. GI bleed-the patient's hematocrit has drifted down to around 23% from a peak of around 26% earlier in the week after her transfusion. She is not on erythropoietin I am going to start this on her. She does not appear to be actively bleeding. 3. Valvular heart disease-patient had mechanical heart valve replacements he is currently on heparin and getting Coumadin her INR is 2.2 Exam (PN)-Nephrology - Vital Signs Vital signs: Period Temp Pulse Resp BP Sys/Vargas Pulse Ox Last 24 Hr 97.1 F-98.0 F 76-87 16-20 95-175/45-81 91-98 - Lab 02/16/17 04:18 02/16/17 04:18 Most recent lab results ABG pH 7.417 (7.35-7.45) 02/05/17 14:25 ABG pCO2 36.9 MM HG (35-48) 02/05/17 14:25 ABG pO2 72.3 MM HG (80-95) L 02/05/17 14:25 ABG HCO3 24.0 MMOL/L (20-26) 02/05/17 14:25 ABG O2 Saturation 94.5 % (95-100) L 02/05/17 14:25 Calcium 7.9 MG/DL (8.5-10.1) L 02/16/17 04:18 Magnesium 2.0 MG/DL (1.8-2.4) 02/16/17 04:18 Assessment and Plan (1) ESRD on dialysis Status: Chronic Assessment and plan: We will plan on hemodialysis today we will try ultrafilter some of the excess fluid in her body as she tolerates, hopefully the blood transfusions during dialysis will allow us to remove some of the excess fluid Current Visit: Yes (2) Volume overload Status: Acute Assessment and plan: This patient's main complaint was swelling in the past few days since she has been discharged. 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 Patient is also been started on amlodipine recently which may be contributing to some of her lower extremity swelling, her blood loss anemia may also be increasing her fluid extravasation and subsequent swelling. Current Visit: Yes (3) GI bleed Status: Acute Assessment and plan: This patient has been having some black tarry stools her hematocrit is fallen around 19% from around 29% at the time of her recent discharge a few days ago. GI medicine has been consulted Current Visit: Yes (4) Melena Status: Acute Current Visit: Yes (5) Symptomatic anemia Status: Acute Current Visit: Yes (6) History of mitral valve replacement with mechanical valve Status: Chronic Current Visit: Yes (7) Pulmonary hypertension Status: Chronic Current Visit: Yes (8) Anemia Status: Acute Current Visit: No Qualifiers: Other causes of anemia: acute posthemorrhagic (9) Diarrhea Status: Chronic Current Visit: No (10) History of COPD Status: Chronic Current Visit: Yes (11) Coumadin toxicity Status: Resolved Current Visit: No Qualifiers: Injury intent: accidental or unintentional
--- NOTE | 2017-02-16 09:54 | Cardiology Progress Note ---
I, Elena John RN, am scribing for, and in the presence of, Tom Escobar MD 09:54. Assessment and Plan (1) Chronic anticoagulation Status: Chronic Assessment and plan: The patient's INR is up to 2.2 today. I am going to stop her heparin. From my standpoint, she should be able to go home tomorrow. The patient wishes to switch her cardiac care to see me. She has been seeing a physician in [place]. I think we could schedule her a follow-up with me in 2-4 weeks with CBC, PT/ INR at that time. Current Visit: Yes (2) Hx of mechanical aortic valve replacement Status: Chronic Assessment and plan: Clinically this is functioning normally. Current Visit: Yes (3) History of mitral valve replacement with mechanical valve Status: Chronic Assessment and plan: Clinically this is functioning normally. Current Visit: Yes (4) GI bleed Status: Acute Assessment and plan: Management per GI. No evidence of ongoing bleeding. Current Visit: Yes (5) Symptomatic anemia Status: Acute Current Visit: Yes (6) ESRD on dialysis Status: Chronic Current Visit: Yes (7) Pulmonary hypertension Status: Chronic Current Visit: Yes (8) History of COPD Status: Chronic Current Visit: Yes Cardiology - PN: Subj Interval history: [employer] Coach: Dr. Bruno Bowles, would like to change Dr. Escobar Ms. Betancourt is seen resting in bed no acute distress. She denies any chest pain, palpitations, shortness of breath or dizziness. She reports her nausea is better. She denies any further known bleeding. H&H has dropped a bit this morning to 7.3 and 22.9. Heparin is infusing via right femoral line. INR today is up to 2.2. She is scheduled to dialyze today. Current Medications Acetaminophen (Tylenol Tab) 325 mg PO Q4H PRN PRN Reason: fever, headache/body aches Last Admin: 02/09/17 23:45 Dose: 325 mg Hydrocodone Bitart/Acetaminophen ([place] 10-325) 1 tablet PO Q6H PRN PRN Reason: Pain Moderate (4-7) Last Admin: 02/15/17 21:49 Dose: 1 tablet Al Hydrox/Mg Hydrox/Simethicone (Mylanta Max Strength Liquid) 30 ml PO Q6H PRN PRN Reason: Dyspepsia Last Admin: 02/12/17 21:54 Dose: 30 ml Albuterol/Ipratropium (Duoneb) 3 ml RESP TX RT Q4H PRN PRN Reason: Wheezing Last Admin: 02/05/17 11:08 Dose: 3 ml Amlodipine Besylate (Norvasc) 5 mg PO DAILY [facility] Last Admin: 02/15/17 11:20 Dose: Not Given Azelastine HCl (Astelin) 1 spray BOTH NARES BID [facility] Last Admin: 02/15/17 21:52 Dose: 1 spray Calcium Acetate (Phoslo) 667 mg PO TID W/MEALS [facility] Last Admin: 02/15/17 17:20 Dose: 667 mg Carvedilol (Coreg) 6.25 mg PO BID [facility] Last Admin: 02/15/17 21:49 Dose: 6.25 mg Cinacalcet (Sensipar) 60 mg PO DAILY W/SUPPER [facility] Last Admin: 02/15/17 17:20 Dose: 60 mg Clonazepam (Klonopin) 1 mg PO TID [facility] Last Admin: 02/15/17 21:55 Dose: 1 mg Dextrose/Water (D50) 25 gm IV PRN PRN PRN Reason: Hypoglycemia with IV access Glucagon () 1 mg IM PRN PRN PRN Reason: Hypoglycemia w/o IV access Heparin Sodium/Dextrose () 25,000 units in 500 mls @ 17.996 mls/hr IV TITRATE [facility]; 12 UNITS/KG/HR PRN Reason: Protocol Last Titration: 02/16/17 06:08 Dose: 17.33 units/kg/hr, 26 mls/hr Insulin Human Lispro (Humalog) 0 unit SUBCUT ACHS [facility] PRN Reason: Protocol Last Admin: 02/16/17 08:18 Dose: Not Given Levetiracetam (Keppra Tab) 500 mg PO BID [facility] Last Admin: 02/15/17 21:49 Dose: 500 mg Levothyroxine Sodium (Synthroid Tab) 50 mcg PO DAILY@0700 [facility] Last Admin: 02/16/17 06:15 Dose: 50 mcg Mirtazapine (Remeron) 15 mg PO BEDTIME PRN PRN Reason: Sleep Last Admin: 02/13/17 20:34 Dose: 15 mg Nystatin/Zinc Oxide (Skin Protectant Mixture) 1 applic TOP BID [facility] Last Admin: 02/15/17 21:56 Dose: 1 applic Ondansetron HCl (Zofran Inj) 4 mg IV Q4H PRN PRN Reason: Nausea Last Admin: 02/16/17 05:30 Dose: 4 mg Pantoprazole Sodium (Protonix Tab) 40 mg PO DAILY [facility] Last Admin: 02/15/17 11:20 Dose: Not Given Pravastatin Sodium (Pravachol) 20 mg PO BEDTIME [facility] Last Admin: 02/15/17 21:49 Dose: 20 mg Promethazine HCl (Phenergan Tab) 12.5 mg PO Q4H PRN PRN Reason: Nausea/Vomiting Last Admin: 02/15/17 17:20 Dose: 12.5 mg Ropinirole HCl (Requip) 0.5 mg PO BEDTIME [facility] Last Admin: 02/15/17 21:49 Dose: 0.5 mg Tizanidine HCl (Zanaflex) 4 mg PO TID [facility] Last Admin: 02/15/17 21:49 Dose: 4 mg Warfarin Sodium (Coumadin) 6 mg PO DAILY@1800 [facility] Last Admin: 02/15/17 17:20 Dose: 6 mg Exam (Progress Note) - Constitutional Vitals: Period Temp Pulse Resp BP Sys/Vargas Pulse Ox Last 24 Hr 97.1 F-98.0 F 76-87 16-20 95-175/45-81 91-98 General appearance: no acute distress, over weight - Head Head exam: Absent: abrasion, hematoma - Neck Neck exam: Absent: tenderness - Respiratory Respiratory exam: Present: clear to auscultation bilaterally. Absent: accessory muscle use, chest wall tenderness - Cardiovascular Cardiovascular exam: Present: regular rate and rhythm, other (Mechanical valve click noted) - GI/Abdominal GI/Abdominal exam: Present: normal bowel sounds, soft. Absent: distended, tenderness - Extremities Exam Extremities exam: Absent: calf tenderness, edema - Neurological Exam Neurological exam: Present: alert, oriented X3 - Psychiatric Psychiatric exam: Present: normal affect, normal mood - Skin Skin exam: Present: warm, dry Result/EKG - Labs CBC & BMP: 02/16/17 04:18 02/16/17 04:18 Lab Results: I have reviewed the past 24 hour labs Labs: Laboratory Results - last 24 hr 02/15/17 02/15/17 02/15/17 10:58 16:20 20:47 WBC RBC Hgb Hct MCV MCH MCHC RDW Plt Count MPV Neut % (Auto) Lymph % (Auto) Rhea % (Auto) Eos % (Auto) Baso % (Auto) Neut # (Auto) Lymph # (Auto) Rhea # (Auto) Eos # (Auto) Baso # (Auto) Immature Gran % Nucleated RBC % Immature Gran # Nucleated RBCs # INR PT Patient/Control Mix Circ Anticoag PTT Sodium Potassium Chloride Carbon Dioxide Anion Gap BUN Creatinine GFR Calculation BUN/Creatinine Ratio Glucose POC Glucose 111 H 190 H 144 H Calculated Osmolality Calcium Magnesium 02/16/17 02/16/17 02/16/17 04:18 04:18 04:18 WBC 4.0 RBC 2.48 L Hgb 7.3 L Hct 22.9 L MCV 92.3 MCH 29 MCHC 31.9 L RDW 16.6 Plt Count 143 D MPV 11.1 Neut % (Auto) 52.9 Lymph % (Auto) 33.6 Rhea % (Auto) 9.1 Eos % (Auto) 3.3 Baso % (Auto) 0.3 Neut # (Auto) 2.1 Lymph # (Auto) 1.3 L Rhea # (Auto) 0.4 Eos # (Auto) 0.1 Baso # (Auto) 0.0 Immature Gran % 0.8 Nucleated RBC % 0.0 Immature Gran # 0.03 Nucleated RBCs # 0.00 INR 2.2 PT Patient/Control Mix 24.6 D Circ Anticoag PTT Sodium 137 Potassium 4.1 Chloride 96 L Carbon Dioxide 27 Anion Gap 18.1 H BUN 25 H D Creatinine 4.90 H GFR Calculation 9 BUN/Creatinine Ratio 5.00 L Glucose 118 H POC Glucose Calculated Osmolality 277.8 Calcium 7.9 L Magnesium 2.0 02/16/17 02/16/17 05:44 07:48 WBC RBC Hgb Hct MCV MCH MCHC RDW Plt Count MPV Neut % (Auto) Lymph % (Auto) Rhea % (Auto) Eos % (Auto) Baso % (Auto) Neut # (Auto) Lymph # (Auto) Rhea # (Auto) Eos # (Auto) Baso # (Auto) Immature Gran % Nucleated RBC % Immature Gran # Nucleated RBCs # INR PT Patient/Control Mix Circ Anticoag PTT 77.9 H D Sodium Potassium Chloride Carbon Dioxide Anion Gap BUN Creatinine GFR Calculation BUN/Creatinine Ratio Glucose POC Glucose 109 H Calculated Osmolality Calcium Magnesium Shawn Crow Michael, MD, personally performed the services described in this documentation, ascribed by Elena John RN in my presence, and it is both accurate and complete [id number] .
--- NOTE | 2017-02-16 15:39 | Hospitalist Progress Note ---
Assessment and Plan (1) Acute blood loss anemia Status: Acute Assessment and plan: H/H a little lower today Will continue to monitor Current Visit: Yes (2) Hx of mechanical aortic valve replacement Status: Chronic Assessment and plan: Cardiology managing INR 2.2 today, increasing a little daily Stopping heparin infusion today Possible discharge tomorrow Current Visit: Yes (3) ESRD on dialysis Status: Chronic Assessment and plan: Nephrology managing Current Visit: Yes (4) Coumadin toxicity Status: Resolved Current Visit: No Qualifiers: Injury intent: accidental or unintentional Hospitalist: Subjective Interval history: No acute events overnight. Seen after HD. Denies nausea. Excited about possible discharge tomorrow. Exam - Constitutional Vitals: Period Temp Pulse Resp BP Sys/Vargas Pulse Ox Last 24 Hr 97.4 F-98.1 F 76-87 16-20 95-148/45-83 91-100 General appearance: over weight - Head Head exam: Present: normocephalic, atraumatic - Eye Eye exam: Present: EOMI Pupils: Present: NONI - ENT ENT exam: Present: normal exam - Neck Neck exam: Present: normal inspection - Respiratory Respiratory exam: Present: clear to auscultation bilaterally. Absent: rhonchi, wheezes - Cardiovascular Cardiovascular exam: Present: regular rate and rhythm - GI/Abdominal GI/Abdominal exam: Present: normal bowel sounds - Extremities Exam Extremities exam: Present: normal inspection - Back Exam Back exam: Present: normal inspection - Neurological Exam Neurological exam: Present: alert, oriented X3 - Psychiatric Psychiatric exam: Present: normal affect, normal mood - Skin Skin exam: Present: warm, intact Results - Labs CBC & BMP: 02/16/17 04:18 02/16/17 04:18
[2017-02-16] MEDS: WARFARIN 3 MG TABLET PO SCH (17:58)
[2017-02-16] MEDS: CINACALCET 30 MG TABLET PO SCH (17:59)
[2017-02-16] MEDS: ACETAMINOPHEN 325 MG TABLET PO PRN (19:38)
[2017-02-16] MEDS: PRAVASTATIN 20 MG TABLET PO SCH (20:27)
[2017-02-16] MEDS: rOPINIRole 0.25 MG TABLET PO SCH (20:27)
[2017-02-16] MEDS: MIRTAZAPINE 15 MG TABLET PO PRN (20:28)
[2017-02-17] MEDS: LEVOTHYROXINE 100 MCG TABLET PO SCH (06:37)
[2017-02-17] MEDS: INSULIN LISPRO 100 UNIT/ML SUBCUT SCH ×3 (08:26→17:22)
[2017-02-17] MEDS: amLODIPine 5 MG TABLET PO SCH (08:27)
[2017-02-17] MEDS: CALCIUM ACETATE 667 MG CAPSULE PO SCH ×3 (08:27→17:22)
[2017-02-17] MEDS: clonazePAM 0.5 MG TABLET PO SCH ×2 (08:28→15:12)
[2017-02-17] MEDS: AZELASTINE NASAL 137 MCG/SPRAY 30 ML BOTTLE BOTH NARES SCH (08:28)
[2017-02-17] MEDS: CARVEDILOL 6.25 MG TABLET PO SCH (08:28)
[2017-02-17] MEDS: tiZANidine 4 MG TABLET PO SCH ×2 (08:28→15:12)
[2017-02-17] MEDS: levETIRAcetam 500 MG TABLET PO SCH (08:28)
[2017-02-17] MEDS: PANTOPRAZOLE 40 MG TABLET PO SCH (08:28)
[2017-02-17] MEDS: DESITIN 4OZ/NYSTATIN 15 GRAM MIXTURE PASTE TOP SCH (08:53)
--- NOTE | 2017-02-17 10:38 | Discharge Summary ---
<Carlos Reddy - Last Filed: 02/17/17 10:31> Hospital Course - Hospital Course Hospital Course: This patient is a 61-year-old female who was admitted to the hospital through the emergency room on 02/02/2017 with acute blood loss anemia and coagulopathy found to have an INR greater than 4 on admission. She was then admitted to the ICU and transfuse with 2 units of packed red blood cells. Her Coumadin was held on admission and she was also given 4 units of fresh frozen plasma. Serial H&H's were performed. Patient was found to be in volume overload. Nephrology was consulted and patient was started on hemodialysis. GI was consulted and planned for EGD once INR has been corrected. Due to inadequate venous access, the patient had a central line placed on 02/08/[address] Pranav Gibbons. Patient had EGD performed by Dr. Luke on 02/09/2017 which revealed a small hiatal hernia, otherwise unremarkable. Given the patient's history of valve replacement and chronic anticoagulation, cardiology was consulted to manage her INR. On 02/11/2017, patient's Coumadin was resumed at 6 mg p.o. daily. The remainder of her hospital course was highlighted by management of INR as well as scheduled hemodialysis. Patient's INR at this time is 2.2, H&H 7.3 and 22.9 respectively. Patient has reached maximum benefit from hospitalization at this time is stable for discharge. She will be discharged home to self with appropriate follow-up per cardiology and nephrology. She should resume her normal hemodialysis schedule outpatient. Discharge orders and appropriate follow-up instructions follow per addendum by Dr. Salcido. - Time spent with patient Time with patient DS: Greater than 30 minutes Diagnosis - Discharge Diagnosis (1) GI bleed Status: Acute (2) Hyperkalemia Status: Acute (3) ESRD on dialysis Status: Chronic (4) CKD (chronic kidney disease) Status: Acute (5) History of mitral valve replacement with mechanical valve Status: Chronic Specialty Discharge - Follow Up or Referrals Follow up with: Yury Mills MD [Physician] - (Keep same schedule for dialysis.) Discharge Plan - Discharge Data Disposition: Disch To Home/Self Care - Discharge Medications New Warfarin [Coumadin] 6 mg PO DAILY@1800 #60 tablet Continue Linagliptin [Tradjenta] 5 mg PO DAILY Cinacalcet HCl [Sensipar] 60 mg PO DAILY W/SUPPER Ropinirole HCl [Requip] 0.5 mg PO BEDTIME Promethazine Tab [Phenergan Tab] 25 mg PO Q6H PRN PRN Reason: Nausea clonazePAM [Klonopin] 1 mg PO TID levETIRAcetam TAB [Keppra Tab] 500 mg PO BID Pravastatin [Pravachol] 20 mg PO BEDTIME Pantoprazole Tab [Protonix Tab] 40 mg PO BID Fluticasone 50 Mcg Nasal [place] [Flonase Nasal [place]] 1 spray BOTH NARES DAILY Azelastine HCl [Azelastine 0.1% Nasal [place]] 1 spray BOTH NARES BID tiZANidine [Zanaflex] 4 mg PO TID Budesonide/Formoterol 160-4.5 [Symbicort 160-4.5] 1 puff INH BID Mirtazapine [Remeron] 15 mg PO BEDTIME PRN PRN Reason: Sleep Promethazine Liquid [Phenergan Liquid] 25 mg PO Q6H Calcium Acetate [Phoslo] 667 mg PO TID W/MEALS Levothyroxine Tab [Synthroid Tab] 50 mcg PO DAILY@0700 Carvedilol [Coreg] 6.25 mg PO BID #60 tablet Fluticasone/Salmeterol 250-50 [Advair 250-50] 1 puff INH BID #1 amLODIPine [Norvasc] 5 mg PO DAILY #30 tablet Discontinued Warfarin [Coumadin] 7.5 mg PO DAILY@1800 #30 tablet predniSONE TAB [PredniSONE] 20 mg PO DAILY #7 tablet - Follow Up or Referral Follow Up: Yury Mills MD [Physician] - (Keep same schedule for dialysis.) - Forms/Instructions Exam - Constitutional Vitals: Period Temp Pulse Resp BP Sys/Vargas Pulse Ox Last 24 Hr 97.3 F-98.6 F 77-87 18-20 107-176/58-103 93-99 Discharge Results Labs on day of discharge: Labs from last 24 hours 02/17/17 02/16/17 02/16/17 07:57 19:57 16:22 POC Glucose 163 H 140 H 124 H DS: Provider Date of admission: 02/02/17 02:17 Primary care physician: . No PCP Attending physician on admission: Ellen Paris MD Consults: 02/02/17 02:16 Consult to Physician [CONS] Routine Comment: GI bleed Consulting Provider: Darion Luke When should Consulting Provider be notified: In am Person Notified: emilia Date Notified: 02/02/17 Time Notified: 08:45 Consult Notification Comment: reconsulted Dr Luke on Sunday Consult to Physician [CONS] Routine Comment: hemodialysis Consulting Provider: Regino Correia When should Consulting Provider be notified: In am 02/04/17 10:39 Consult to Physician [CONS] Routine Comment: GI bleed, mechanical valve, supratherapeutic INR Consulting Provider: Cardiology - [facility] Consulting Provider Notified: Yes Consult to Specialist Group: Cardiology When should Consulting Provider be notified: Now Person Notified: valery Date Notified: 02/04/17 Time Notified: 10:59 02/04/17 14:01 Consult to Dietitian [CONS] Routine Reason for Dietitian: Diet Instruction 02/14/17 12:36 Consult to Dietitian [CONS] Routine Reason for Dietitian: Coumadin Education Consult Comment: Pt. likes shannan smalls, on coumadin for mechanical heart valve Discharging clinician: Carlos ALVES Expected date of discharge: 02/17/17 <Tom Salcido - Last Filed: 02/17/17 10:41> Hospital Course - Time spent with patient Time with patient DS: Less than 30 minutes Diagnosis - Discharge Diagnosis (1) Acute blood loss anemia Status: Resolved (2) Hx of mechanical aortic valve replacement Status: Chronic (3) ESRD on dialysis Status: Chronic (4) Coumadin toxicity Status: Resolved Discharge Plan - Discharge Data Condition at Discharge: Stable Discharge Diet: other (coumadin diet) Activity: increase activity as tolerated Hygiene: no restrictions Weight Bearing at Discharge: weight bear as tolerated Driving: no restrictions Contact your physician if you experience:: fever over 101, Shortness of breath, Bleeding Exam - Constitutional General appearance: over weight - Head Head exam: Present: normocephalic, atraumatic - Eye Eye exam: Present: EOMI Pupils: Present: NONI - ENT ENT exam: Present: normal exam - Neck Neck exam: Present: normal inspection - Respiratory Respiratory exam: Present: clear to auscultation bilaterally. Absent: wheezes - Cardiovascular Cardiovascular exam: Present: regular rate and rhythm - GI/Abdominal GI/Abdominal exam: Present: normal bowel sounds, soft. Absent: tenderness, rebound - Extremities Exam Extremities exam: Present: normal inspection - Back Exam Back exam: Present: normal inspection - Neurological Exam Neurological exam: Present: alert, oriented X3 - Psychiatric Psychiatric exam: Present: normal affect, normal mood - Skin Skin exam: Present: warm, intact
--- NOTE | 2017-02-17 13:23 | Nephrology Progress Note ---
Nephrology - PN: Subj Interval history: Pt being discharged today. Tolerated routine CHD yesterday without complications. Exam (PN)-Nephrology - Vital Signs Vital signs: Period Temp Pulse Resp BP Sys/Vargas Pulse Ox Last 24 Hr 97.3 F-98.6 F 77-87 18-20 107-176/58-103 93-99 - General Appearance General appearance: well-developed, obese EENT: ATNC, PERRL, mucous membranes moist, hearing intact, vision intact Neck: no JVD, no thyromegaly Respiratory: no kyphosis, clear Cardiology: mid-systolic murmur, no rub Gastrointestinal: normoactive bowel sounds, no tenderness, obese Integumentary: no rash, warm and dry Neurologic: no focal deficit, no asterixis, alert and oriented x3 Musculoskeletal: no deformities, no erythema Psychiatric: depressed, cooperative - Lab 02/16/17 04:18 02/16/17 04:18 Most recent lab results ABG pH 7.417 (7.35-7.45) 02/05/17 14:25 ABG pCO2 36.9 MM HG (35-48) 02/05/17 14:25 ABG pO2 72.3 MM HG (80-95) L 02/05/17 14:25 ABG HCO3 24.0 MMOL/L (20-26) 02/05/17 14:25 ABG O2 Saturation 94.5 % (95-100) L 02/05/17 14:25 Calcium 7.9 MG/DL (8.5-10.1) L 02/16/17 04:18 Magnesium 2.0 MG/DL (1.8-2.4) 02/16/17 04:18 Assessment and Plan (1) ESRD on dialysis Problem details: No acute indication for HD today. Status: Chronic Assessment and plan: F/U outpt dialysis unit for routine scheduled HD treatment. Current Visit: Yes Specialty Discharge - Follow Up or Referrals Follow up with: Yury Mills MD [Physician] - (Keep same schedule for dialysis.)
[2017-02-17] MEDS: PROMETHAZINE 25 MG TABLET PO PRN (15:12)
[2017-02-17 17:21] VITALS: BP 175/98
[2017-02-17] MEDS: CINACALCET 30 MG TABLET PO SCH (17:22)
[2017-02-17] MEDS: WARFARIN 3 MG TABLET PO SCH (17:22)
== END 2017-02-17 17:52 | disposition home or self-care (01) | DRG 813 ==
LOC: N.ED 23:23 → SUATTDRO 02-02 02:16 → N.EDINP 02-02 02:16 → SUATTDRO 02-02 02:17 → N.ICU 02-02 03:18 → N.2E 02-02 20:36 → N.ICU 02-05 14:57 → N.4E 02-07 19:21
PROVIDERS: ADMIT Family Medicine; ATTEND Internal Medicine

== ENCOUNTER 2017-03-02 17:43 | Inpatient (IN) ==
--- NOTE | 2017-03-02 18:14 | Emergency Department Note ---
Arrival - Arrival Chief Complaint: Weakness Stated Complaint: blood levels are too low,needs blood transfusion ED Nursing Triage Note: Pt sent for low blood count and to get blood transfusion. C/o weakness x 2 days. Last dialysis yesterday. Mode of Arrival: Ambulatory Time Seen by Provider: 03/02/17 18:08 - History of Present Illness HPI Narrative: Patient presents complaining of weakness and dizziness. She was sent to the emergency department by Dr. Betancourt, her capacity planning engineer, for further evaluation of anemia. The patient states she has had diarrhea all night and had one melanotic stool at approximately 1500 hrs. this afternoon. She denies any abdominal cramping. She did feel dizzy like she was going to pass out when she stood up this morning prior to the melanotic stool. The patient denies any bright red blood per rectum or hematemesis. She has had no fever. The patient takes her Coumadin as prescribed for mechanical heart valve placement in the aortic and pulmonary valves. She denies any chest pain. Allergies/Adverse Reactions: Allergies Allergy/AdvReac Type Severity Reaction Status Date / Time Iodinated Contrast Media - Allergy RASH Verified 01/22/17 01:00 Oral and [Iodinated Contrast Media - IV Dye] Penicillins Allergy ANAPHYLAXIS Verified 01/22/17 01:00 aspirin AdvReac Nausea Verified 01/22/17 01:00 cephalexin [From Keflex] AdvReac Vomiting Verified 01/22/17 01:00 Sulfa (Sulfonamide AdvReac Vomiting Verified 01/22/17 01:00 Antibiotics) Home Medications: Home Medications Medication Instructions Recorded Confirmed Type Azelastine HCl [Azelastine 0.1% 1 spray BOTH NARES BID 04/04/16 02/01/17 History Nasal [place]] Budesonide/Formoterol 160-4.5 1 puff INH BID 04/04/16 02/01/17 History [Symbicort 160-4.5] Calcium Acetate [Phoslo] 667 mg PO TID W/MEALS 04/04/16 02/01/17 History Cinacalcet HCl [Sensipar] 60 mg PO DAILY W/SUPPER 04/04/16 02/01/17 History Fluticasone 50 Mcg Nasal [place] 1 spray BOTH NARES DAILY 04/04/16 02/01/17 History [Flonase Nasal [place]] Levothyroxine Tab [Synthroid Tab] 50 mcg PO DAILY@0700 04/04/16 02/01/17 History Linagliptin [Tradjenta] 5 mg PO DAILY 04/04/16 02/01/17 History Mirtazapine [Remeron] 15 mg PO BEDTIME PRN 04/04/16 02/01/17 History Pantoprazole Tab [Protonix Tab] 40 mg PO BID 04/04/16 02/01/17 History Pravastatin [Pravachol] 20 mg PO BEDTIME 04/04/16 02/01/17 History Promethazine Liquid [Phenergan 25 mg PO Q6H 04/04/16 02/01/17 History Liquid] Promethazine Tab [Phenergan Tab] 25 mg PO Q6H PRN 04/04/16 02/01/17 History Ropinirole HCl [Requip] 0.5 mg PO BEDTIME 04/04/16 02/01/17 History clonazePAM [Klonopin] 1 mg PO TID 04/04/16 02/01/17 History levETIRAcetam TAB [Keppra Tab] 500 mg PO BID 04/04/16 02/01/17 History tiZANidine [Zanaflex] 4 mg PO TID 04/04/16 02/01/17 History Carvedilol [Coreg] 6.25 mg PO BID #60 tablet 01/30/17 02/01/17 Rx Fluticasone/Salmeterol 250-50 1 puff INH BID #1 01/30/17 02/01/17 Rx [Advair 250-50] amLODIPine [Norvasc] 5 mg PO DAILY #30 tablet 01/30/17 02/01/17 Rx Warfarin [Coumadin] 6 mg PO DAILY@1800 #60 tablet 02/17/17 Rx Review of System - Review of System 12 point system: reviewed and no additional remarkable complaints except as stated Medical,Surgical,& Family Hx - Medical History Cardio: History of: CAD (question of bypass surgery with recent cardiac surgery. ), Valvular Heart Disease (has had recent aortic valve replacement), Cardiovascular Problems (impression recent aortic issue.) Psychological: History of: Anxiety Disorders, Depression Neurology: History of: Peripheral Neuropathy (FEET/TOES), Vertigo No history of: Seizures Endocrine: History of: Diabetes Mellitus (IDDM) Respiratory: History of: Asthma, COPD Renal: History of: Renal Failure Gastrointestinal: History of: GERD (on dialysis), Gastrointestinal Bleed Hematology: History of: Bleeding Problems (high inr), Clotting Problems (pt states she had a clot "three or four years ago") No history of: Blood Transfusion Reaction Other: History of: Miscellaneous Medical Problems (Sinus surgery) No history of: Anesthesia Reactions - Surgical History Cardiac Surgeries: Sugical HX of: Cardiac Catheterization (NO STENTS PLACE, NO HEART DISEASE NOTED) Thoracic Surgeries: Patient denies;: Organ Transplant HEENT Surgeries: Surgical HX of: Tonsilectomy & Adenoidectomy Abdominal Surgeries: Surgical HX of: Abdominal Surgery (COLON REMOVED), Cholecystectomy Reproductive Surgeries: Surgical HX of;: Gynecologic Surgery, Hysterectomy - Family History Family History: Reports;: Family Heart Disease, Family Hypertension - Social History Smoking Status: Former smoker Exam Physical Examination: General: Patient is well-developed and well-nourished with no acute distress noted. HEENT: The extraocular muscles are intact. Oropharynx is moist. There is no erythema or exudate. The tympanic membranes are shiny bilaterally. Neck: There is no adenopathy. Full range of motion is noted without pain. The trachea is midline. No JVD is present. Lungs: There is normal excursion of the chest with the lungs sounding clear bilaterally. No subcostal retractions are present. There is no point tenderness present. Heart: The heart has a regular rate and rhythm with no gallops or murmurs. Mechanical heart valves are noted on auscultation with clicks from the valves auscultated. Abdomen: The abdomen is nontender and nondistended with no rebound, guarding, or masses. Bowel sounds are normal. Back: The back demonstrates a normal appearance with no evidence of trauma. Genitourinary: Not examined. Extremities: The extremities demonstrate no clubbing, cyanosis, or edema. The visualized range of motion is normal. They appear atraumatic. Neuro: Cranial nerves II through XII are checked and intact. There is no focal motor or sensory deficit seen in the extremities. Skin: Skin is warm and dry with no evidence of rash. Left forearm which contains hemodialysis access is heavily bruised. Vital Signs: Vital Signs Temperature 97.0 F L 03/02/17 17:45 Pulse Rate 80 03/02/17 18:30 Respiratory Rate 16 03/02/17 18:30 Blood Pressure 105/60 03/02/17 18:30 O2 Sat by Pulse Oximetry 98 03/02/17 18:30 Course - Reevaluation(s) Reevaluation #1: Hemoccult is positive. Time: 20:50 - Consultations Consultation #1: Dr. Garcia will admit the patient. Time: 21:05 Procedures - Central Line Placement Right Femoral Consent Obtained: verbal consent Time Out Performed: Yes Patient Placed on Monitor/Pulse Ox: Yes MD Prep: mask, gown, gloves Central Line Prep: Povidone-Iodine 1% Local Anesthetic: lidocaine 1% Amount of anesthesia used (mL): 5 Ultrasound Used for Placement: No Central Line Lumen Inserted: triple Post Procedure: sutured in place, good blood return, all ports aspirated, flushed, capped, sterile dressing applied Patient Tolerated Procedure: well Complications: none Results - Labs CBC & BMP: 03/02/17 19:50 03/02/17 19:50 Lab Results: I have reviewed the patients labs Critical Care Time Critical Care Time: Yes Total Critical Care Time: 55 Disposition Clinical Impression: Lower GI bleed, Symptomatic anemia, Hx of mechanical aortic valve replacement, CKD (chronic kidney disease) Case discussed with: patient, patient's family Disposition: Still a Patient Condition: Stable Time of Disposition: 21:06
[2017-03-02] MEDS ORDERED: ONDANSETRON 4 MG/2 ML VIAL ONE (19:38)
[2017-03-02] MEDS ORDERED: MORPHINE 2 MG/1 ML SYRINGE ONE (19:39)
[2017-03-02] MEDS ORDERED: ONDANSETRON 4 MG/2 ML VIAL IV STA (19:41)
[2017-03-02] MEDS ORDERED: MORPHINE 2 MG/1 ML SYRINGE IV STA (19:41)
[2017-03-02 20:22] LABS: Basophils % 0.2 % (0.0-0.8); Eosinophils # 0.2 10*3/uL (0.0-0.87); Eosinophils % 2.4 % (0.00-10.9); Hematocrit 21.4 VOL% (35.7-47.0); Hemoglobin 6.5 GM/DL (12.0-16.0); Immature Granulocytes % 0.6 %; Immature Granulocytes Absolute 0.04 #; Lymphocytes # 1.7 10*3/uL (1.4-4.0); Lymphocytes % 26.1 % (21.3-54.2); Mean Corpuscular HGB Conc 30.4 GM/DL (32-36); Mean Corpuscular Hemoglobin 31 PG (27-34); Mean Corpuscular Volume 101.4 FL (87-102); Mean Platelet Volume 9.9 FL (9.6-12.0); Monocytes # 0.5 10*3/uL (0.11-0.8); NRBC # 0.02 10*3/uL; Neutrophils % 62.7 % (38.7-73.9); Platelet Count 199 T/CUMM (130-400); Red Blood Count 2.11 MC/CUMM (3.8-5.5); Red Cell Distribution Width 20.9 % (9.3-17.3); White Blood Count 6.4 T/CUMM (4-12)
[2017-03-02 20:37] LABS: INR 1.6; PT Patient Result 16.9 SECS
[2017-03-02 20:56] LABS: Calcium 9.2 MG/DL (8.5-10.1); Osmolality,Calculated 281.4 MOS/KG (273-304); Potassium 3.5 MMOL/L (3.5-5.1)
[2017-03-02] MEDS ORDERED: INSULIN REGULAR DRIP 100 ML IV ONE (21:33)
[2017-03-02] MEDS ORDERED: SODIUM CHLORIDE 0.9% 250 ML IV PRN (22:21)
[2017-03-02] MEDS ORDERED: HYDROCORTISONE 100 MG VIAL IV ONE (22:23)
[2017-03-02] MEDS ORDERED: diphenhydrAMINE 50 MG/1 ML VIAL IM PRN (22:24)
--- NOTE | 2017-03-02 22:52 | Hospitalist History & Physical ---
Assessment and Plan (1) Upper GI bleed Status: Acute Assessment and plan: Patient report is noted to have had melena in the emergency room with him positive stools. Service for me that the patient is bleeding above the command of [place]. Patient will be consulted to GI for further evaluation and upper GI tract. He does have Coumadin use for mechanical valvular replacement. INR is subtherapeutic. Will therefore at this point hold the Coumadin put the patient on full dose Lovenox 1 mg/kg twice a day in preparation for upper GI evaluation as well as giving her optimal anticoagulation. Current Visit: Yes (2) Fatigue Status: Acute Assessment and plan: This is secondary to the anemia and he should get better with transfusion. Patient has been typed and crossed with 2 units of packed red cells to be transfused as soon as they are ready. Transfusion treatment orders have been put in.. H&H in the morning Current Visit: Yes (3) Symptomatic anemia Status: Acute Assessment and plan: Patient found to have melena on assessment in the emergency room. However I do not believe this could be the only thing that is causing her anemia and her anemia itself looks to be mixed. I believe this is the upper GI bleed and I believe that is compounded by use of anticoagulation which she needs. However the patient also has a mechanical valve that probably is involved in the strangulated cells intravascularly. Untroubled that the patient does have end- stage renal disease. Fact that a MCV is high am concerned about possibility of B12 or folate or both being involved. There is no history of alcohol overuse. We need to check iron studies. We also need to check B 12 levels and also check folate levels. If folate and B12 are low it may be necessary to check homocystine and methylmalonic acid levels. To evaluate for chronic intravascular cellular destruction of the mechanical valve it would have been nice to have urine hemosiderin unfortunately I could not find that order on the computer Current Visit: Yes (4) Hx of mechanical aortic valve replacement Status: Chronic Assessment and plan: Patient is optimal anticoagulation. Her INR was subtherapeutic at 1.6. Because there is need for GI evaluation I will plan to take her off Coumadin temporarily and also in the process give her more optimal anticoagulation with full dose Lovenox subcu as mentioned above. Current Visit: Yes History of Present Illness Chief complaint: Profound anemia/GI bleed with melena History of present illness: Ms. Betancourt is a 61 year old female presented to ED complaining of weakness and dizziness. She was sent to the emergency department by Dr. Becerra, her geriatrics physician, for further evaluation of anemia. The patient states she has had diarrhea all night and had one melanotic stool at approximately 1500 hrs. this afternoon. She denies any abdominal cramping. She did feel dizzy like she was going to pass out when she stood up this morning prior to the melanotic stool. The patient denies any bright red blood per rectum or hematemesis. She has had no fever. The patient takes her Coumadin as prescribed for mechanical heart valve placement in the aortic and pulmonary valves. She denies any chest pain. Patient does have Hemoccult positive melena in the emergency room. Home Medications Medication Instructions Recorded Confirmed Type Azelastine HCl [Azelastine 0.1% 1 spray BOTH NARES BID 04/04/16 02/01/17 History Nasal [place]] Budesonide/Formoterol 160-4.5 1 puff INH BID 04/04/16 02/01/17 History [Symbicort 160-4.5] Calcium Acetate [Phoslo] 667 mg PO TID W/MEALS 04/04/16 02/01/17 History Cinacalcet HCl [Sensipar] 60 mg PO DAILY W/SUPPER 04/04/16 02/01/17 History Fluticasone 50 Mcg Nasal [place] 1 spray BOTH NARES DAILY 04/04/16 02/01/17 History [Flonase Nasal [place]] Levothyroxine Tab [Synthroid Tab] 50 mcg PO DAILY@0700 04/04/16 02/01/17 History Linagliptin [Tradjenta] 5 mg PO DAILY 04/04/16 02/01/17 History Mirtazapine [Remeron] 15 mg PO BEDTIME PRN 04/04/16 02/01/17 History Pantoprazole Tab [Protonix Tab] 40 mg PO BID 04/04/16 02/01/17 History Pravastatin [Pravachol] 20 mg PO BEDTIME 04/04/16 02/01/17 History Promethazine Liquid [Phenergan 25 mg PO Q6H 04/04/16 02/01/17 History Liquid] Promethazine Tab [Phenergan Tab] 25 mg PO Q6H PRN 04/04/16 02/01/17 History Ropinirole HCl [Requip] 0.5 mg PO BEDTIME 04/04/16 02/01/17 History clonazePAM [Klonopin] 1 mg PO TID 04/04/16 02/01/17 History levETIRAcetam TAB [Keppra Tab] 500 mg PO BID 04/04/16 02/01/17 History tiZANidine [Zanaflex] 4 mg PO TID 04/04/16 02/01/17 History Carvedilol [Coreg] 6.25 mg PO BID #60 tablet 01/30/17 02/01/17 Rx Fluticasone/Salmeterol 250-50 1 puff INH BID #1 01/30/17 02/01/17 Rx [Advair 250-50] amLODIPine [Norvasc] 5 mg PO DAILY #30 tablet 01/30/17 02/01/17 Rx Warfarin [Coumadin] 6 mg PO DAILY@1800 #60 tablet 02/17/17 Rx Allergies Allergy/AdvReac Type Severity Reaction Status Date / Time Iodinated Contrast Media - Allergy RASH Verified 01/22/17 01:00 Oral and [Iodinated Contrast Media - IV Dye] Penicillins Allergy ANAPHYLAXIS Verified 01/22/17 01:00 aspirin AdvReac Nausea Verified 01/22/17 01:00 cephalexin [From Keflex] AdvReac Vomiting Verified 01/22/17 01:00 Sulfa (Sulfonamide AdvReac Vomiting Verified 01/22/17 01:00 Antibiotics) Medical,Surgical,& Family Hx - Medical History Cardio: History of: CAD (question of bypass surgery with recent cardiac surgery. ), Valvular Heart Disease (has had recent aortic valve replacement), Cardiovascular Problems (impression recent aortic issue.) Psychological: History of: Anxiety Disorders, Depression Neurology: History of: Peripheral Neuropathy (FEET/TOES), Vertigo No history of: Seizures Endocrine: History of: Diabetes Mellitus (IDDM) Respiratory: History of: Asthma, COPD Renal: History of: Renal Failure Gastrointestinal: History of: GERD (on dialysis), Gastrointestinal Bleed Hematology: History of: Bleeding Problems (high inr), Clotting Problems (pt states she had a clot "three or four years ago") No history of: Blood Transfusion Reaction Other: History of: Miscellaneous Medical Problems (Sinus surgery) No history of: Anesthesia Reactions - Surgical History Cardiac Surgeries: Sugical HX of: Cardiac Catheterization (NO STENTS PLACE, NO HEART DISEASE NOTED) Thoracic Surgeries: Patient denies;: Organ Transplant HEENT Surgeries: Surgical HX of: Tonsilectomy & Adenoidectomy Abdominal Surgeries: Surgical HX of: Abdominal Surgery (COLON REMOVED), Cholecystectomy Reproductive Surgeries: Surgical HX of;: Gynecologic Surgery, Hysterectomy - Family History Family History: Reports;: Family Heart Disease, Family Hypertension - Social History Smoking Status: Former smoker Review of systems: 12 point system assessment was 89-year-old with a chief complaint and history of presenting illness. Patient is not in any distress at this point. She does look rather pale. Exam - Constitutional Vitals: Period Temp Pulse Resp BP Sys/Vargas Pulse Ox Last 24 Hr 97.0 F-97.0 F 80-89 16-20 105-132/60-65 92-98 General appearance: normal weight - Head Head exam: Present: normocephalic, atraumatic - Eye Eye exam: Present: EOMI, other (Scleral pallor) Pupils: Present: NONI - ENT ENT exam: Present: normal oropharynx - Neck Neck exam: Present: normal inspection - Respiratory Respiratory exam: Present: clear to auscultation bilaterally - Cardiovascular Cardiovascular exam: Present: regular rate and rhythm - GI/Abdominal GI/Abdominal exam: Present: normal bowel sounds, soft - Extremities Exam Extremities exam: Present: full ROM - Back Exam Back exam: Present: normal inspection - Neurological Exam Neurological exam: Present: alert, oriented X3, CN II-XII intact - Skin Skin exam: Present: warm, dry, other (Skin pallor) Results - Labs CBC & BMP: 03/02/17 19:50 03/02/17 19:50 Lab Results: I have reviewed the past 24 hour labs (Addendum anemia hematocrit of 21.4 MCV 101.4 RDW 20.9 B-type natriuretic peptide is elevated at 1233)
[2017-03-02] MEDS ORDERED: ENOXAPARIN 60 MG/0.6 ML SYRINGE SUBCUT SCH (23:30)
[2017-03-03 00:24] LABS: Calcium 9.9 MG/DL (8.5-10.1); Osmolality,Calculated 284.1 MOS/KG (273-304)
[2017-03-03 00:27] LABS: % Iron Saturation 33.3 % (18-50)
[2017-03-03] MEDS: MIRTAZAPINE 15 MG TABLET PO PRN ×2 (02:16→21:29)
[2017-03-03] MEDS ORDERED: HYDROCORTISONE 100 MG VIAL IV ONE (05:30)
[2017-03-03] MEDS: LEVOTHYROXINE 100 MCG TABLET PO SCH (06:09)
--- NOTE | 2017-03-03 08:17 | Nephrology Consult Note ---
History of Present Illness Chief complaint: End-stage renal disease, anemia History of present illness: Ms. Betancourt is a 61 year old female with history of end-stage renal disease due to hypertension and diabetes currently dialyzes at the [facility] dialysis unit on a Sunday schedule. Moreover patient has a history of cardiovascular vascular disease and is status post aortic valve replacement that involved a prolonged hospitalization earlier this year. Patient had follow -up outpatient labs at her dialysis unit and reports came back critical low hemoglobin of 6.5. She was directed to be evaluated in emergency room and has been admitted for anemia. She was found to have melena on exam. She has received 1 unit of packed red blood cells and plan to get another unit of packed red blood cells on dialysis. Home Medications Medication Instructions Recorded Confirmed Type Azelastine HCl [Azelastine 0.1% 1 spray BOTH NARES BID 04/04/16 02/01/17 History Nasal [place]] Budesonide/Formoterol 160-4.5 1 puff INH BID 04/04/16 02/01/17 History [Symbicort 160-4.5] Calcium Acetate [Phoslo] 667 mg PO TID W/MEALS 04/04/16 02/01/17 History Cinacalcet HCl [Sensipar] 60 mg PO DAILY W/SUPPER 04/04/16 02/01/17 History Fluticasone 50 Mcg Nasal [place] 1 spray BOTH NARES DAILY 04/04/16 02/01/17 History [Flonase Nasal [place]] Levothyroxine Tab [Synthroid Tab] 50 mcg PO DAILY@0700 04/04/16 02/01/17 History Linagliptin [Tradjenta] 5 mg PO DAILY 04/04/16 02/01/17 History Mirtazapine [Remeron] 15 mg PO BEDTIME PRN 04/04/16 02/01/17 History Pantoprazole Tab [Protonix Tab] 40 mg PO BID 04/04/16 02/01/17 History Pravastatin [Pravachol] 20 mg PO BEDTIME 04/04/16 02/01/17 History Promethazine Liquid [Phenergan 25 mg PO Q6H 04/04/16 02/01/17 History Liquid] Promethazine Tab [Phenergan Tab] 25 mg PO Q6H PRN 04/04/16 02/01/17 History Ropinirole HCl [Requip] 0.5 mg PO BEDTIME 04/04/16 02/01/17 History clonazePAM [Klonopin] 1 mg PO TID 04/04/16 02/01/17 History levETIRAcetam TAB [Keppra Tab] 500 mg PO BID 04/04/16 02/01/17 History tiZANidine [Zanaflex] 4 mg PO TID 04/04/16 02/01/17 History Carvedilol [Coreg] 6.25 mg PO BID #60 tablet 01/30/17 02/01/17 Rx Fluticasone/Salmeterol 250-50 1 puff INH BID #1 01/30/17 02/01/17 Rx [Advair 250-50] amLODIPine [Norvasc] 5 mg PO DAILY #30 tablet 01/30/17 02/01/17 Rx Warfarin [Coumadin] 6 mg PO DAILY@1800 #60 tablet 02/17/17 Rx Allergies Allergy/AdvReac Type Severity Reaction Status Date / Time Iodinated Contrast Media - Allergy RASH Verified 01/22/17 01:00 Oral and [Iodinated Contrast Media - IV Dye] Penicillins Allergy ANAPHYLAXIS Verified 01/22/17 01:00 aspirin AdvReac Nausea Verified 01/22/17 01:00 cephalexin [From Keflex] AdvReac Vomiting Verified 01/22/17 01:00 Sulfa (Sulfonamide AdvReac Vomiting Verified 01/22/17 01:00 Antibiotics) Medical,Surgical,& Family Hx - Medical History Cardio: History of: CAD (triple bypass surgery with recent cardiac surgery 11/29), Valvular Heart Disease (has had recent aortic valve replacement), Cardiovascular Problems (impression recent aortic issue.) Psychological: History of: Anxiety Disorders, Depression Neurology: History of: Peripheral Neuropathy (FEET/TOES), Seizures, Vertigo Endocrine: History of: Diabetes Mellitus (IDDM) Rheumatology: History of;: Fibromyalgia Respiratory: History of: Asthma, COPD Renal: History of: Renal Failure Gastrointestinal: History of: GERD (on dialysis), Gastrointestinal Bleed Hematology: History of: Anemia, Bleeding Problems (high inr), Clotting Problems (pt states she had a clot "three or four years ago") No history of: Blood Transfusion Reaction Other: History of: Miscellaneous Medical Problems (Sinus surgery) No history of: Anesthesia Reactions - Surgical History Cardiac Surgeries: Sugical HX of: Cardiac Catheterization (NO STENTS PLACE) Thoracic Surgeries: Patient denies;: Organ Transplant HEENT Surgeries: Surgical HX of: Tonsilectomy & Adenoidectomy Abdominal Surgeries: Surgical HX of: Abdominal Surgery (COLON REMOVED), Cholecystectomy Reproductive Surgeries: Surgical HX of;: Gynecologic Surgery, Hysterectomy - Family History Family History: Reports;: Family Cancer (mother ovarian, sister breast), Family Diabetes (mother), Family Heart Disease (mother -[place]), Family Hypertension ( mother), Family Stroke (mother and brother), Additional Family History (mother- seizures) - Social History Smoking Status: Former smoker Frequency of Alcohol Use: None Type of Drug Use: None Review of Systems Constitutional: fatigue Cardiovascular: dyspnea Respiratory: dyspnea Gastrointestinal: no abdominal pain, no bloating Exam - Vital Signs Vital signs: Period Temp Pulse Resp BP Sys/Vargas Pulse Ox Last 24 Hr 96.5 F-97.9 F 79-89 16-20 105-155/58-74 89-99 - General Appearance General appearance: well-developed, fatigue EENT: ATNC Neck: supple Respiratory: clear Cardiology: regular rate, regular rhythm Gastrointestinal: normoactive bowel sounds, no tenderness Neurologic: alert and oriented x3 Musculoskeletal: no clubbing Psychiatric: mood/affect appropriate Results - Labs CBC & BMP: 03/02/17 19:50 03/02/17 23:30 Assessment and Plan (1) Hx of mechanical aortic valve replacement Status: Chronic Current Visit: Yes (2) Weakness Status: Chronic Current Visit: No (3) Chronic anticoagulation Status: Chronic Current Visit: No (4) ESRD on dialysis Problem details: No acute indication for HD today. Status: Chronic Assessment and plan: Hemodialysis today. Plan to transfuse packed red blood cells on dialysis today. Current Visit: No (5) Anemia Status: Acute Current Visit: No Qualifiers: Other causes of anemia: acute posthemorrhagic (6) SOB (shortness of breath) Status: Acute Current Visit: No
--- NOTE | 2017-03-03 08:24 | Gastrointestinal Consult Note ---
Assessment and Plan (1) AVM (arteriovenous malformation) of small bowel, acquired Status: Acute Assessment and plan: This is a patient of Dr. Luke's who is been seen on multiple visits. These AVMs have been diagnosed on small bowel capsule endoscopy done in 2011 and may represent another source for the patient's blood loss noted upper endoscopy done by Dr. Luke his failed to show any proximal lesions. It may be worthwhile to look at the patient's J-pouch to ensure that there are no AVMs within the reach of a EGD versus colonoscope inserted into the terminal ileum, especially she does demonstrate bright red blood per rectum. She does not seem to be actively bleeding on physical exam at this time. If she does have active bleeding it may be worthwhile to repeat the camera/capsule endoscopy versus double balloon endoscopy at a center with this option available versus enema with a more immediate colonoscope insertion into the terminal ileum with cauterization of bleeding vessel if found. Tagged red blood cell scan may be helpful, again if the patient is actively bleeding, which I have not seen evidence of yet. Patient is due to get blood on dialysis today we will continue to observe her stools on a renal diet and consider capsule endoscopy repeat Sunday if Dr. Luke agrees. Current Visit: Yes (2) Hepatomegaly Status: Acute Assessment and plan: The patient likely has hepatic congestion due to pulmonary hypertension and possibly difficulties with her pulmonic valve. This extends over a hands breath down to her right upper abdomen and is resulting in some pain in her abdomen but probably has minimal effect on her anemia. Will check her liver function tests and do an ultrasound to document this as well as ruling out mass within the liver, and patency of the major vessels. Current Visit: Yes (3) Status post total colectomy Status: Acute Assessment and plan: I was asked by 1 of the patient's previous [employer] administrator to find out why the patient had not had a colonoscopy recently. Unfortunately the entire colon is surgically resected back in July 2011 due to right sided ischemia secondary to severe constipation. She has had a small bowel reconstruction into a J- pouch and although this could be a source for bleeding usually it also presents with diarrhea/pouchitis. It might be worthwhile to examine this small bowel reservoir endoscopically, especially if the patient develops bright red blood per rectum, but given the fact that the stools are dark this is more likely to be a proximal small bowel bleed. A capsule endoscopy should reveal the bleeding potential of AVMs still present at this time. Again double balloon endoscopy is a potential treatment at a higher level of care facility. Current Visit: Yes (4) Symptomatic anemia Status: Acute Assessment and plan: The patient is due to get 2 more units of blood on dialysis today. Current Visit: Yes History of Present Illness Chief complaint: Ongoing anemia 21.4%/6.5 g/dL, history of small bowel AVMs History of present illness: Ms. Betancourt is a 61 year old female who had been seen recently in consultation by BERE Hagen and Jeovany Luke MD during her last hospitalization, see GI consultation from 02/02/17. She is dialysis dependent with shortness of breath and edema and a BNP of about 1233 right now. She was called by Dr. Becerra 's office because of anemia and told to come to the hospital for further evaluation. Nursing staff thought they saw some bright red blood per rectum last night patient admits to dark stools but is also taking iron. During her last hospitalization she was hyperanticoagulated with an INR 4.6 and a hemoglobin that dropped to 6.1. She had previous upper endoscopy in 2011 that showed duodenal AVMs and erosive antritis as well as a small bowel camera that showed multiple AVMs of the jejunum. Medical records indicate that the patient developed an ischemic right colon due to stool concretions and had to undergo a subtotal colectomy by Lorenzo burciaga with ileostomy on 07/12/11. Sometime in 2011 the patient had also been transferred over to [place] where Dr. Adrian Ponce had performed ileostomy revision into a J-pouch restoring more natural flow to her small bowel. This admission the patient's hematocrit is been noted to drop down to 21.4 with a hemoglobin of 6.5, this in the face of a subtherapeutic INR at 1.6, notably now with a BNP of 1233. Unfortunately she does have an aortic mechanical heart valve, and a bioprosthetic pulmonary heart valve by report from the patient. She is somewhat confused as to her medical history, so most of these records are obtained from the chart. She is having some shortness of breath but no chest pain, the patient does have hepatomegaly on physical examination with some right upper quadrant pain in the liver that goes a full hands breath into the mid abdominal region (17.5 cm liver span). She admits to some diarrhea but states that this is been dark not bright red as has been indicated by nursing staff. On physical exam by me as noted below the patient has yellow stool that is guaiac negative, and a great deal of gas in her ileal pouch. Low-grade blood loss could certainly be from the multiple AVMs seen in her small bowel but may be multifactorial along with her renal failure. We do know that the patient's last EGD was done on 02/09/17 less than a month ago by Dr. Luke and was completely normal aside from hiatal hernia. Her hematocrit at that time was 22.7, with a hemoglobin of 7.3 g/dL. Home Medications Medication Instructions Recorded Confirmed Type Azelastine HCl [Azelastine 0.1% 1 spray BOTH NARES BID 04/04/16 02/01/17 History Nasal [place]] Budesonide/Formoterol 160-4.5 1 puff INH BID 04/04/16 02/01/17 History [Symbicort 160-4.5] Calcium Acetate [Phoslo] 667 mg PO TID W/MEALS 04/04/16 02/01/17 History Cinacalcet HCl [Sensipar] 60 mg PO DAILY W/SUPPER 04/04/16 02/01/17 History Fluticasone 50 Mcg Nasal [place] 1 spray BOTH NARES DAILY 04/04/16 02/01/17 History [Flonase Nasal [place]] Levothyroxine Tab [Synthroid Tab] 50 mcg PO DAILY@0700 04/04/16 02/01/17 History Linagliptin [Tradjenta] 5 mg PO DAILY 04/04/16 02/01/17 History Mirtazapine [Remeron] 15 mg PO BEDTIME PRN 04/04/16 02/01/17 History Pantoprazole Tab [Protonix Tab] 40 mg PO BID 04/04/16 02/01/17 History Pravastatin [Pravachol] 20 mg PO BEDTIME 04/04/16 02/01/17 History Promethazine Liquid [Phenergan 25 mg PO Q6H 04/04/16 02/01/17 History Liquid] Promethazine Tab [Phenergan Tab] 25 mg PO Q6H PRN 04/04/16 02/01/17 History Ropinirole HCl [Requip] 0.5 mg PO BEDTIME 04/04/16 02/01/17 History clonazePAM [Klonopin] 1 mg PO TID 04/04/16 02/01/17 History levETIRAcetam TAB [Keppra Tab] 500 mg PO BID 04/04/16 02/01/17 History tiZANidine [Zanaflex] 4 mg PO TID 04/04/16 02/01/17 History Carvedilol [Coreg] 6.25 mg PO BID #60 tablet 01/30/17 02/01/17 Rx Fluticasone/Salmeterol 250-50 1 puff INH BID #1 01/30/17 02/01/17 Rx [Advair 250-50] amLODIPine [Norvasc] 5 mg PO DAILY #30 tablet 01/30/17 02/01/17 Rx Warfarin [Coumadin] 6 mg PO DAILY@1800 #60 tablet 02/17/17 Rx Allergies Allergy/AdvReac Type Severity Reaction Status Date / Time Iodinated Contrast Media - Allergy RASH Verified 01/22/17 01:00 Oral and [Iodinated Contrast Media - IV Dye] Penicillins Allergy ANAPHYLAXIS Verified 01/22/17 01:00 aspirin AdvReac Nausea Verified 01/22/17 01:00 cephalexin [From Keflex] AdvReac Vomiting Verified 01/22/17 01:00 Sulfa (Sulfonamide AdvReac Vomiting Verified 01/22/17 01:00 Antibiotics) Medical,Surgical,& Family Hx - Medical History Cardio: History of: CAD (triple bypass surgery with recent cardiac surgery 11/29), Valvular Heart Disease (has had recent aortic valve replacement), Cardiovascular Problems (impression recent aortic issue.) Psychological: History of: Anxiety Disorders, Depression Neurology: History of: Peripheral Neuropathy (FEET/TOES), Seizures, Vertigo Endocrine: History of: Diabetes Mellitus (IDDM) Rheumatology: History of;: Fibromyalgia Respiratory: History of: Asthma, COPD Renal: History of: Renal Failure Gastrointestinal: History of: GERD (on dialysis), Gastrointestinal Bleed Hematology: History of: Anemia, Bleeding Problems (high inr), Clotting Problems (pt states she had a clot "three or four years ago") No history of: Blood Transfusion Reaction Other: History of: Miscellaneous Medical Problems (Sinus surgery) No history of: Anesthesia Reactions - Surgical History Cardiac Surgeries: Sugical HX of: Cardiac Catheterization (NO STENTS PLACE) Thoracic Surgeries: Patient denies;: Organ Transplant HEENT Surgeries: Surgical HX of: Tonsilectomy & Adenoidectomy Abdominal Surgeries: Surgical HX of: Abdominal Surgery (COLON REMOVED), Cholecystectomy Reproductive Surgeries: Surgical HX of;: Gynecologic Surgery, Hysterectomy - Family History Family History: Reports;: Family Cancer (mother ovarian, sister breast), Family Diabetes (mother), Family Heart Disease (mother -[place]), Family Hypertension ( mother), Family Stroke (mother and brother), Additional Family History (mother- seizures) - Social History Smoking Status: Former smoker Frequency of Alcohol Use: None Type of Drug Use: None Review of systems: Constitutional: Denies fever, chills, and vomiting--she does have some nausea Eyes: Denies dry eyes, and scleral icterus HENT: Denies headaches Cardiovascular: Denies acute chest pain and claudication Respiratory: She is experiencing some shortness of breath, and difficulty breathing, denies cough and wheezing Gastrointestinal: As noted in the HPI Genitourinary: Denies dysuria and hematuria Neurologic: Denies vision loss, and loss of sensation Musculoskeletal: She does admit to some joint swelling, joint stiffness, and muscular weakness Psychiatric: She has mild depression but no jean-paul symptoms Heme-Lymph: She is having some easy bruising, but no lymph node enlargement or tenderness, night sweats, excessive bleeding Allergies-immunologic: Denies pruritus and rhinorrhea Exam - Constitutional Vitals: Period Temp Pulse Resp BP Sys/Vargas Pulse Ox Last 24 Hr 96.5 F-97.9 F 79-89 16-20 105-155/58-74 89-99 General appearance: mild distress - Head Head exam: Present: normocephalic, atraumatic - Eye Eye exam: Present: EOMI. Absent: scleral icterus - Respiratory Respiratory exam: Present: decreased breath sounds (In the bases bilaterally), rales (Fine rales noted in the bases). Absent: rhonchi, stridor, wheezes - Cardiovascular Cardiovascular exam: Present: regular rate and rhythm, systolic murmur, other ( [place] metallic click noted second right intercostal space). Absent: gallop, rubs - GI/Abdominal GI/Abdominal exam: Present: normal bowel sounds, distended, firm (In the right upper quadrant secondary to enlargement of the liver), tenderness (Right upper quadrant), soft, other (Enlarged liver to 17.5 cm.) - Extremities Exam Extremities exam: Present: edema - Neurological Exam Neurological exam: Present: alert, oriented X3, CN II-XII intact. Absent: motor sensory deficit - Psychiatric Psychiatric exam: Present: normal affect, normal mood - Skin Skin exam: Present: warm Results - Labs CBC & BMP: 03/02/17 19:50 03/02/17 23:30
--- NOTE | 2017-03-03 08:51 | Dialysis Note ---
Dialysis Note - Dialysis Note Patient seen on dialysis she is tolerating the procedure getting 2 units of blood on dialysis today. Blood pressure noted to be 155/73.
[2017-03-03 10:08] LABS: Basophils # 0.1 10*3/uL (0.0-0.2); Basophils % 0.5 % (0.0-0.8); Eosinophils # 0.1 10*3/uL (0.0-0.87); Eosinophils % 0.6 % (0.00-10.9); Hematocrit 26.5 VOL% (35.7-47.0); Lymphocytes % 9.8 % (21.3-54.2); Mean Corpuscular HGB Conc 32.1 GM/DL (32-36); Mean Corpuscular Hemoglobin 32 PG (27-34); Mean Corpuscular Volume 98.5 FL (87-102); Mean Platelet Volume 10.1 FL (9.6-12.0); Monocytes # 0.3 10*3/uL (0.11-0.8); Monocytes % 3.1 % (1.7-12.7); Neutrophils # 8.3 10*3/uL (1.4-7.4); Platelet Count 216 T/CUMM (130-400); Red Cell Distribution Width 20.8 % (9.3-17.3)
[2017-03-03 10:14] LABS: Hemoglobin 8.5 GM/DL (12.0-16.0); Red Blood Count 2.69 MC/CUMM (3.8-5.5); White Blood Count 9.7 T/CUMM (4-12)
[2017-03-03 14:09] LABS: Folate 13.1 NG/ML (5.4-24.0)
[2017-03-03] MEDS: CALCIUM ACETATE 667 MG CAPSULE PO SCH ×2 (14:22→16:42)
[2017-03-03] MEDS: AZELASTINE NASAL 137 MCG/SPRAY 30 ML BOTTLE BOTH NARES SCH ×2 (14:23→21:28)
[2017-03-03] MEDS: FLUTICASONE 50 MCG NASAL SPRAY 16 GM BOTTLE BOTH NARES SCH (14:23)
[2017-03-03] MEDS: clonazePAM 0.5 MG TABLET PO SCH ×3 (14:23→21:29)
[2017-03-03] MEDS: CARVEDILOL 6.25 MG TABLET PO SCH ×2 (14:23→21:29)
[2017-03-03] MEDS: BUDESONIDE/FORMOTEROL 160-4.5 INHALER 6 GM INH SCH ×2 (14:23→23:21)
[2017-03-03] MEDS: levETIRAcetam 500 MG TABLET PO SCH ×2 (14:23→21:29)
--- NOTE | 2017-03-03 14:39 | Hospitalist Progress Note ---
Assessment and Plan (1) GI bleed Status: Acute Assessment and plan: Patient has received two units of blood, GI is following Current Visit: No (2) Symptomatic anemia Status: Acute Assessment and plan: continue prn transfusion. Monitor cbc Current Visit: No (3) AVM (arteriovenous malformation) of small bowel, acquired Status: Acute Assessment and plan: GI is following. They are considering a repeat capsule endoscopy . Current Visit: Yes (4) Hx of mechanical aortic valve replacement Status: Chronic Assessment and plan: Patient has a history of mechanical heart valve placement in the aortic and pulmonary valves. She will need some anticoagulation therapy though she is bleeding. We will get a Cardiology consult Current Visit: Yes (5) ESRD on dialysis Problem details: No acute indication for HD today. Status: Chronic Assessment and plan: Nephrology is following. Current Visit: No Hospitalist: Subjective Interval history: Patient developed some SOB and crackles after receiving a unit of red blood cells and she was immediately taken for her session of dialysis where she will be given the second unit of blood. Exam - Constitutional Vitals: Period Temp Pulse Resp BP Sys/Vargas Pulse Ox Last 24 Hr 96.5 F-97.9 F 79-99 16-20 105-155/58-85 89-99 General appearance: mild distress - Head Head exam: Present: normal inspection - Respiratory Respiratory exam: Present: decreased breath sounds, rales - Cardiovascular Cardiovascular exam: Present: regular rate and rhythm - GI/Abdominal GI/Abdominal exam: Present: normal bowel sounds - Extremities Exam Extremities exam: Present: normal inspection - Neurological Exam Neurological exam: Present: alert, oriented X3 Results - Labs CBC & BMP: 03/03/17 09:32 03/02/17 23:30 Lab Results: I have reviewed the past 24 hour labs
[2017-03-03] MEDS: sitaGLIPtin 25 MG TABLET PO SCH (15:17)
[2017-03-03] MEDS: amLODIPine 5 MG TABLET PO SCH (15:17)
[2017-03-03 15:34] LABS: Hematocrit 32.1 VOL% (35.7-47.0); Hemoglobin 10.6 GM/DL (12.0-16.0)
--- NOTE | 2017-03-03 16:04 | Cardiology Consult Note ---
Assessment and Plan (1) Chronic anticoagulation Status: Chronic Assessment and plan: This will be some degree will be necessary with her 2 mechanical valves. Unfortunately she has AV malformations that caused recurrent GI bleed. We may have to run her INR is very low and add baby aspirin. Current Visit: No (2) Symptomatic anemia Status: Acute Assessment and plan: This is probably secondary to her GI blood loss. Current Visit: Yes (3) Upper GI bleed Status: Acute Assessment and plan: Related to AV malformations. This exacerbated by anticoagulation. Current Visit: Yes (4) AVM (arteriovenous malformation) of small bowel, acquired Status: Acute Assessment and plan: This is been noted previously on GI evaluation. Current Visit: Yes (5) Status post mechanical aortic valve replacement Status: Chronic Assessment and plan: This is carried out about 2+ months ago. Current Visit: No (6) History of mitral valve replacement with mechanical valve Status: Chronic Assessment and plan: Carried about 2 months ago and will require anticoagulation. Current Visit: No (7) Coronary artery disease Status: Acute Assessment and plan: About 8+ weeks ago she had a single saphenous vein bypass to the RCA when she had her valve replaced. This is stable. Current Visit: Yes History of Present Illness - Data of Consult Patient: known to practice within the last 3 years Consult date: 03/03/17 Requesting Physician: Leti Burden - Consult Narrative Reason for consult: Mechanical valves for GI bleed having to hold anticoagulation History of present illness: Ms. Betancourt is a 61 year old female who about 6-8 weeks ago had undergone aortic and mitral valve surgery with replacement both valves with mechanical devices. She also at the same time had a single bypass to the RCA. When she presented previously in 15 January she had super anticoagulation with INR of 18.8. She was stabilized at that time of discharge. She returned about 4 days later with INR about 5. She had melena. She had GI bleeding was found to have AV malformations in the small bowel. She had a prolonged hospital course at that time and was recently discharged apparently on 02/17/17. She presented less at the emergency room complaining of weakness and dizziness after being called by her transportation attendant who apparently had done some lab work and told her INR is low. She may have been having some melanotic stools but what overtly melanotic. She is again admitted with what may be a GI bleed. Her an INR was 1.6. Her H&H was 21.4 and admission is 32.1 after transfusion. This patient has an issue now that is going to be recurrent GI bleed but with her dual mechanical valves including aortic and mitral she is probably going to have to have some level of anticoagulation with warfarin. We may can place her baby aspirin try to run her INR is as low as possible. CC: Leti Burden MD - Home Medications and Allergies Home Medications: Home Medications Medication Instructions Recorded Confirmed Type Budesonide/Formoterol 160-4.5 2 puffs INH BID 03/03/17 03/03/17 History [Symbicort 160-4.5] Calcium Acetate [Phoslo] 667 mg PO 5X DAILY 03/03/17 03/03/17 History Carvedilol [Coreg] 6.25 mg PO BID 03/03/17 03/03/17 History Cinacalcet HCl [Sensipar] 60 mg PO DAILY 03/03/17 03/03/17 History Cyclobenzaprine [Flexeril] 10 mg PO TID 03/03/17 03/03/17 History HYDROcodone/ACETAMIN 10-325 [[place] 10 mg PO TID 03/03/17 03/03/17 History 10-325] Montelukast Tab [Singulair Tab] 10 mg PO BEDTIME 03/03/17 03/03/17 History OLANZapine [Olanzapine] 2.5 mg PO BID 03/03/17 03/03/17 History Pantoprazole Tab [Protonix Tab] 40 mg PO DAILY 03/03/17 03/03/17 History Pravastatin [Pravachol] 20 mg PO BEDTIME 03/03/17 03/03/17 History Promethazine Tab [Phenergan Tab] 50 mg PO Q6HR 03/03/17 03/03/17 History Ranolazine [Ranexa] 1,000 mg PO BID 03/03/17 03/03/17 History Ropinirole HCl 2 tablet PO BEDTIME 03/03/17 03/03/17 History Temazepam [Restoril] 15 mg PO BEDTIME 03/03/17 03/03/17 History Warfarin [Coumadin] 2.5 mg PO WE 03/03/17 03/03/17 History Warfarin [Coumadin] 5 mg PO SUMOTUTHFRSA 03/03/17 03/03/17 History amLODIPine [Norvasc] 5 mg PO DAILY 03/03/17 03/03/17 History clonazePAM [Clonazepam] 1 mg PO TID 03/03/17 03/03/17 History levETIRAcetam [Levetiracetam] 500 mg PO BID 03/03/17 03/03/17 History Allergies/Adverse Reactions: Allergies Allergy/AdvReac Type Severity Reaction Status Date / Time Iodinated Contrast Media - Allergy RASH Verified 01/22/17 01:00 Oral and [Iodinated Contrast Media - IV Dye] Penicillins Allergy ANAPHYLAXIS Verified 01/22/17 01:00 aspirin AdvReac Nausea Verified 01/22/17 01:00 cephalexin [From Keflex] AdvReac Vomiting Verified 01/22/17 01:00 Sulfa (Sulfonamide AdvReac Vomiting Verified 01/22/17 01:00 Antibiotics) Review of systems: Constitutional: Denies anorexia, chills, fatigue, fever, frequent falls, night sweats, weight gain, weight loss Eyes: Denies visual changes or loss of vision Ears: Denies decreased hearing, vertigo Nose, mouth and throat: Denies dysphagia, epistaxis, headaches, neck pain, tongue swelling, Neck: Denies thyromegaly or masses. No stiffness. Cardiovascular: as per HPI Respiratory: Denies cough, dyspnea, hemoptysis, dyspnea on exertion, wheezing, snoring Gastrointestinal: Has had some dark stool possible melena. Denies abdominal pain, constipation, dyspepsia, dysphagia, nausea, vomiting Genitourinary: Denies dysuria, hematuria, nocturia Musculoskeletal: Denies arthralgias, joint swelling, muscle weakness, myalgias Neurological: denies abnormal gait, abnormal speech, confusion, convulsions, frequent falls, headaches, memory loss, syncope Psychiatric: Denies anxiety, confusion, depression Endocrine: Denies cold intolerance, fatigue, heat intolerance Hematologic/Lymphatic: Denies easy bleeding, easy bruising Dermatologic: Denies Rash, itching, shingles Medical,Surgical,& Family Hx - Medical History Cardio: History of: CAD (triple bypass surgery with recent cardiac surgery 11/29), Valvular Heart Disease (has had recent aortic valve replacement), Cardiovascular Problems (impression recent aortic issue.) Psychological: History of: Anxiety Disorders, Depression Neurology: History of: Peripheral Neuropathy (FEET/TOES), Seizures, Vertigo Endocrine: History of: Diabetes Mellitus (IDDM) Rheumatology: History of;: Fibromyalgia Respiratory: History of: Asthma, COPD Renal: History of: Renal Failure Gastrointestinal: History of: GERD (on dialysis), Gastrointestinal Bleed Hematology: History of: Anemia, Bleeding Problems (high inr), Clotting Problems (pt states she had a clot "three or four years ago") No history of: Blood Transfusion Reaction Other: History of: Miscellaneous Medical Problems (Sinus surgery) No history of: Anesthesia Reactions - Surgical History Cardiac Surgeries: Sugical HX of: Cardiac Catheterization (NO STENTS PLACE) Thoracic Surgeries: Patient denies;: Organ Transplant HEENT Surgeries: Surgical HX of: Tonsilectomy & Adenoidectomy Abdominal Surgeries: Surgical HX of: Abdominal Surgery (COLON REMOVED), Cholecystectomy Reproductive Surgeries: Surgical HX of;: Gynecologic Surgery, Hysterectomy - Family History Family History: Reports;: Family Cancer (mother ovarian, sister breast), Family Diabetes (mother), Family Heart Disease (mother -CA), Family Hypertension ( mother), Family Stroke (mother and brother), Additional Family History (mother- seizures) - Social History Smoking Status: Former smoker Frequency of Alcohol Use: None Type of Drug Use: None Physical Examination Vital Signs Temp Pulse Resp BP Pulse Ox 97.0 F L 89 20 132/65 92 L 03/02/17 17:45 03/02/17 17:45 03/02/17 17:45 03/02/17 17:45 03/02/17 17:45 Other: General appearance: normal weight, no acute distress Head exam: normal inspection, atraumatic Eye exam: Pupils are equal and reactive. EOMI. There is no trauma. Ear exam: Anatomically normal. Normal auditory acuity to conversation. Oral exam: No significant oral lesions. Neck exam: normal inspection no JVD. No carotid bruit. Trachea is in midline. Respiratory exam: clear to auscultation bilaterally posteriorly and anteriorly with good air movement. No rales, rhonchi or wheezes. Cardiovascular exam: regular rate and rhythm, she has appropriate mechanical valve sounds of her mechanical prosthetic aortic and mitral valves. No precordial lift. No bruits over the major arteries. Chest wall/torso: Anatomically normal. No tenderness, deformity Peripheral Pulses: 2+ throughout. GI/Abdominal exam: normal bowel sounds, soft and nontender, no abdominal bruits or pulsatile masses. Musculoskeletal/Extremities exam: normal inspection without edema or cyanosis. No deformities or trauma. Neurological exam: alert, oriented X3. There is no gross neurologic deficits. Psychiatric exam: normal affect, normal mood. Cognitive function is grossly intact. Skin exam: normal color, warm. No rashes or other skin lesions. Result/EKG - Labs CBC & BMP: 03/03/17 15:11 03/02/17 23:30 Lab Results: I have reviewed the past 24 hour labs Labs: Laboratory Results - last 24 hr 03/02/17 03/02/17 03/02/17 19:50 19:50 19:50 WBC 6.4 RBC 2.11 L Hgb 6.5 L Hct 21.4 L MCV 101.4 MCH 31 MCHC 30.4 L RDW 20.9 H Plt Count 199 MPV 9.9 Neut % (Auto) 62.7 Lymph % (Auto) 26.1 [place] % (Auto) 8.0 Eos % (Auto) 2.4 Baso % (Auto) 0.2 Neut # (Auto) 4.0 Lymph # (Auto) 1.7 [place] # (Auto) 0.5 Eos # (Auto) 0.2 Baso # (Auto) 0.0 Immature Gran % 0.6 Nucleated RBC % 0.3 Immature Gran # 0.04 Nucleated RBCs # 0.02 INR 1.6 PT Patient/Control Mix 16.9 D Sodium Potassium Chloride Carbon Dioxide Anion Gap BUN Creatinine GFR Calculation BUN/Creatinine Ratio Glucose POC Glucose Calculated Osmolality Calcium Magnesium Iron TIBC % Saturation Ferritin B-Natriuretic Peptide 1233 H Vitamin B12 Folate Blood Type Antibody Screen Crossmatch Blood Bank Comment 03/02/17 03/02/17 03/02/17 19:50 19:50 23:30 WBC RBC Hgb Hct MCV MCH MCHC RDW Plt Count MPV Neut % (Auto) Lymph % (Auto) [place] % (Auto) Eos % (Auto) Baso % (Auto) Neut # (Auto) Lymph # (Auto) [place] # (Auto) Eos # (Auto) Baso # (Auto) Immature Gran % Nucleated RBC % Immature Gran # Nucleated RBCs # INR PT Patient/Control Mix Sodium 140 142 Potassium 3.5 4.0 Chloride 94 L 97 L Carbon Dioxide 37 H 39 H Anion Gap 12.5 10.0 BUN 18 19 H Creatinine 4.90 H 5.20 H GFR Calculation 9 8 BUN/Creatinine Ratio 3.00 L 3.00 L Glucose 125 H 96 POC Glucose Calculated Osmolality 281.4 284.1 Calcium 9.2 9.9 Magnesium 2.0 2.0 Iron TIBC % Saturation Ferritin B-Natriuretic Peptide Vitamin B12 Folate Blood Type A POSITIVE Antibody Screen Negative Crossmatch See Detail Blood Bank Comment 03/02/17 03/03/17 03/03/17 23:30 00:20 06:35 WBC RBC Hgb Hct MCV MCH MCHC RDW Plt Count MPV Neut % (Auto) Lymph % (Auto) [place] % (Auto) Eos % (Auto) Baso % (Auto) Neut # (Auto) Lymph # (Auto) [place] # (Auto) Eos # (Auto) Baso # (Auto) Immature Gran % Nucleated RBC % Immature Gran # Nucleated RBCs # INR PT Patient/Control Mix Sodium Potassium Chloride Carbon Dioxide Anion Gap BUN Creatinine GFR Calculation BUN/Creatinine Ratio Glucose POC Glucose 117 H 125 H Calculated Osmolality Calcium Magnesium Iron 75 TIBC 225 L % Saturation 33.3 Ferritin B-Natriuretic Peptide Vitamin B12 Folate Blood Type Antibody Screen Crossmatch Blood Bank Comment 03/03/17 03/03/17 03/03/17 09:32 09:33 09:33 WBC 9.7 D RBC 2.69 L D Hgb 8.5 L D Hct 26.5 L MCV 98.5 MCH 32 MCHC 32.1 RDW 20.8 H Plt Count 216 MPV 10.1 Neut % (Auto) 85.0 H Lymph % (Auto) 9.8 L [place] % (Auto) 3.1 Eos % (Auto) 0.6 Baso % (Auto) 0.5 Neut # (Auto) 8.3 H Lymph # (Auto) 1.0 L [place] # (Auto) 0.3 Eos # (Auto) 0.1 Baso # (Auto) 0.1 Immature Gran % 1.0 Nucleated RBC % 0.0 Immature Gran # 0.10 Nucleated RBCs # 0.00 INR PT Patient/Control Mix Sodium Potassium Chloride Carbon Dioxide Anion Gap BUN Creatinine GFR Calculation BUN/Creatinine Ratio Glucose POC Glucose Calculated Osmolality Calcium Magnesium Iron TIBC % Saturation Ferritin 1928.8 H B-Natriuretic Peptide Vitamin B12 584 Folate 13.1 Blood Type Antibody Screen Crossmatch Blood Bank Comment 03/03/17 03/03/17 03/03/17 09:59 12:21 15:11 WBC RBC Hgb 10.6 L D Hct 32.1 L MCV MCH MCHC RDW Plt Count MPV Neut % (Auto) Lymph % (Auto) [place] % (Auto) Eos % (Auto) Baso % (Auto) Neut # (Auto) Lymph # (Auto) [place] # (Auto) Eos # (Auto) Baso # (Auto) Immature Gran % Nucleated RBC % Immature Gran # Nucleated RBCs # INR PT Patient/Control Mix Sodium Potassium Chloride Carbon Dioxide Anion Gap BUN Creatinine GFR Calculation BUN/Creatinine Ratio Glucose POC Glucose 108 H Calculated Osmolality Calcium Magnesium Iron TIBC % Saturation Ferritin B-Natriuretic Peptide Vitamin B12 Folate Blood Type Cancelled Antibody Screen Cancelled Crossmatch See Detail Blood Bank Comment Cancelled 03/03/17 15:27 WBC RBC Hgb Hct MCV MCH MCHC RDW Plt Count MPV Neut % (Auto) Lymph % (Auto) [place] % (Auto) Eos % (Auto) Baso % (Auto) Neut # (Auto) Lymph # (Auto) [place] # (Auto) Eos # (Auto) Baso # (Auto) Immature Gran % Nucleated RBC % Immature Gran # Nucleated RBCs # INR PT Patient/Control Mix Sodium Potassium Chloride Carbon Dioxide Anion Gap BUN Creatinine GFR Calculation BUN/Creatinine Ratio Glucose POC Glucose 186 H Calculated Osmolality Calcium Magnesium Iron TIBC % Saturation Ferritin B-Natriuretic Peptide Vitamin B12 Folate Blood Type Antibody Screen Crossmatch Blood Bank Comment - Impressions Impressions: Telemetry with sinus rhythm.
[2017-03-03] MEDS: CINACALCET 30 MG TABLET PO SCH (16:42)
[2017-03-03] MEDS: PRAVASTATIN 20 MG TABLET PO SCH (21:29)
[2017-03-03] MEDS: rOPINIRole 0.25 MG TABLET PO SCH (21:29)
[2017-03-03] MEDS: ONDANSETRON 4 MG/2 ML VIAL IV PRN (23:22)
[2017-03-04 05:18] LABS: Basophils # 0.1 10*3/uL (0.0-0.2); Basophils % 1.1 % (0.0-0.8); Eosinophils # 0.1 10*3/uL (0.0-0.87); Eosinophils % 1.3 % (0.00-10.9); Hematocrit 32.5 VOL% (35.7-47.0); Hemoglobin 10.4 GM/DL (12.0-16.0); Immature Granulocytes % 0.5 %; Immature Granulocytes Absolute 0.04 #; Lymphocytes # 2.3 10*3/uL (1.4-4.0); Lymphocytes % 27.8 % (21.3-54.2); Mean Corpuscular Hemoglobin 30 PG (27-34); Monocytes # 0.7 10*3/uL (0.11-0.8); Monocytes % 8.2 % (1.7-12.7); Neutrophils # 5.1 10*3/uL (1.4-7.4); Neutrophils % 61.1 % (38.7-73.9); Platelet Count 222 T/CUMM (130-400); Red Blood Count 3.42 MC/CUMM (3.8-5.5); Red Cell Distribution Width 21.7 % (9.3-17.3); White Blood Count 8.3 T/CUMM (4-12)
[2017-03-04 05:44] LABS: INR 1.4; PT Patient Result 15.6 SECS
[2017-03-04 05:51] LABS: Calcium 9.8 MG/DL (8.5-10.1); Osmolality,Calculated 281.4 MOS/KG (273-304); Potassium 3.2 MMOL/L (3.5-5.1)
[2017-03-04 05:56] LABS: Albumin 3.7 G/DL (3.4-5.0); Bilirubin,Direct 0.8 MG/DL (0.0-0.20); Bilirubin,Indirect 1.9 MG/DL (0.0-1.0); Bilirubin,Total 2.7 MG/DL (0.2-1.0); Total Protein 7.1 G/DL (6.4-8.3)
[2017-03-04] MEDS: LEVOTHYROXINE 100 MCG TABLET PO SCH (06:08)
--- NOTE | 2017-03-04 07:22 | Cardiology Progress Note ---
Assessment and Plan (1) Chronic anticoagulation Status: Chronic Assessment and plan: This will be necessary with her 2 mechanical valves. Unfortunately she has AV malformations by previous evaluations that caused recurrent GI bleed. We may have to run her INR is very low and add baby aspirin. We will go ahead and place her on low-dose baby aspirin. Will await GIs plans before replacing her back on low-dose warfarin. Current Visit: No (2) Symptomatic anemia Status: Acute Assessment and plan: This is probably secondary to her GI blood loss. Listed is stable today. Current Visit: Yes (3) Upper GI bleed Status: Acute Assessment and plan: Related to AV malformations. This exacerbated by anticoagulation. Current Visit: Yes (4) AVM (arteriovenous malformation) of small bowel, acquired Status: Acute Assessment and plan: This is been noted previously on GI evaluation. Current Visit: Yes (5) Status post mechanical aortic valve replacement Status: Chronic Assessment and plan: This is carried out about 2+ months ago. Clinically stable at this time but will require anticoagulation. Current Visit: No (6) History of mitral valve replacement with mechanical valve Status: Chronic Assessment and plan: Carried about 2 months ago and will require anticoagulation. Current Visit: No (7) Coronary artery disease Status: Chronic Assessment and plan: About 8+ weeks ago she had a single saphenous vein bypass to the RCA when she had her valve replaced. This is stable. Current Visit: Yes Cardiology - PN: Subj Interval history: The patient stable today feels well. Her H&H is stable. There is question whether she will have further GI evaluation at this time. We would like to start the patient on baby aspirin and warfarin. Would like to use low-dose warfarin see if we can get by with this. Certainly with her dual mechanical valves in the aortic and mitral position she will need treatment. I am going to place the patient on baby aspirin today. If GI decides not to pursue any further therapy evaluation and trying the patient back on low-dose warfarin would be appropriate. Should be noted she is followed by Dr. Escobar in the office. Exam (Progress Note) - Constitutional Vitals: Period Temp Pulse Resp BP Sys/Vargas Pulse Ox Last 24 Hr 97.0 F-97.7 F 86-99 18-20 116-143/58-85 93-100 Exam: General appearance: normal weight, no acute distress, she was resting on my arrival to the room. Head exam: normal inspection, atraumatic Eye exam: Pupils are equal and reactive. EOMI. There is no trauma. Neck exam: normal inspection no JVD. No carotid bruit. Trachea is in midline. Respiratory exam: clear to auscultation bilaterally posteriorly and anteriorly with good air movement. No rales, rhonchi or wheezes. Cardiovascular exam: regular rate and rhythm, she has appropriate mechanical valve sounds of her mechanical prosthetic aortic and mitral valves. No precordial lift. No bruits over the major arteries. Chest wall/torso: Anatomically normal. No tenderness, deformity Peripheral Pulses: 2+ throughout. GI/Abdominal exam: normal bowel sounds, soft and nontender, no abdominal bruits or pulsatile masses. Musculoskeletal/Extremities exam: normal inspection without edema or cyanosis. No deformities or trauma. Neurological exam: alert, oriented X3. There is no gross neurologic deficits. Psychiatric exam: normal affect, normal mood. Cognitive function is grossly intact. Skin exam: normal color, warm. No rashes or other skin lesions. Result/EKG - Labs CBC & BMP: 03/04/17 04:43 03/04/17 04:43 Lab Results: I have reviewed the past 24 hour labs (Patient's H&H is stable. Potassium remains at 3.4) Labs: Laboratory Results - last 24 hr 03/02/17 03/03/17 03/03/17 19:50 06:35 09:32 WBC 9.7 D RBC 2.69 L D Hgb 8.5 L D Hct 26.5 L MCV 98.5 MCH 32 MCHC 32.1 RDW 20.8 H Plt Count 216 MPV 10.1 Neut % (Auto) 85.0 H Lymph % (Auto) 9.8 L [place] % (Auto) 3.1 Eos % (Auto) 0.6 Baso % (Auto) 0.5 Neut # (Auto) 8.3 H Lymph # (Auto) 1.0 L [place] # (Auto) 0.3 Eos # (Auto) 0.1 Baso # (Auto) 0.1 Immature Gran % 1.0 Nucleated RBC % 0.0 Immature Gran # 0.10 Nucleated RBCs # 0.00 INR PT Patient/Control Mix Sodium Potassium Chloride Carbon Dioxide Anion Gap BUN Creatinine GFR Calculation BUN/Creatinine Ratio Glucose POC Glucose 125 H Calculated Osmolality Calcium Ferritin Total Bilirubin Direct Bilirubin Indirect Bilirubin AST ALT Alkaline Phosphatase Total Protein Albumin Vitamin B12 Folate Blood Type A POSITIVE Antibody Screen Negative Crossmatch See Detail Blood Bank Comment 03/03/17 03/03/17 03/03/17 09:33 09:33 09:59 WBC RBC Hgb Hct MCV MCH MCHC RDW Plt Count MPV Neut % (Auto) Lymph % (Auto) [place] % (Auto) Eos % (Auto) Baso % (Auto) Neut # (Auto) Lymph # (Auto) [place] # (Auto) Eos # (Auto) Baso # (Auto) Immature Gran % Nucleated RBC % Immature Gran # Nucleated RBCs # INR PT Patient/Control Mix Sodium Potassium Chloride Carbon Dioxide Anion Gap BUN Creatinine GFR Calculation BUN/Creatinine Ratio Glucose POC Glucose Calculated Osmolality Calcium Ferritin 1928.8 H Total Bilirubin Direct Bilirubin Indirect Bilirubin AST ALT Alkaline Phosphatase Total Protein Albumin Vitamin B12 584 Folate 13.1 Blood Type Cancelled Antibody Screen Cancelled Crossmatch See Detail Blood Bank Comment Cancelled 03/03/17 03/03/17 03/03/17 12:21 15:11 15:27 WBC RBC Hgb 10.6 L D Hct 32.1 L MCV MCH MCHC RDW Plt Count MPV Neut % (Auto) Lymph % (Auto) [place] % (Auto) Eos % (Auto) Baso % (Auto) Neut # (Auto) Lymph # (Auto) [place] # (Auto) Eos # (Auto) Baso # (Auto) Immature Gran % Nucleated RBC % Immature Gran # Nucleated RBCs # INR PT Patient/Control Mix Sodium Potassium Chloride Carbon Dioxide Anion Gap BUN Creatinine GFR Calculation BUN/Creatinine Ratio Glucose POC Glucose 108 H 186 H Calculated Osmolality Calcium Ferritin Total Bilirubin Direct Bilirubin Indirect Bilirubin AST ALT Alkaline Phosphatase Total Protein Albumin Vitamin B12 Folate Blood Type Antibody Screen Crossmatch Blood Bank Comment 03/03/17 03/04/17 03/04/17 21:27 04:43 04:43 WBC 8.3 RBC 3.42 L D Hgb 10.4 L Hct 32.5 L MCV 95.0 MCH 30 MCHC 32.0 RDW 21.7 H Plt Count 222 MPV 10.0 Neut % (Auto) 61.1 Lymph % (Auto) 27.8 [place] % (Auto) 8.2 Eos % (Auto) 1.3 Baso % (Auto) 1.1 H Neut # (Auto) 5.1 Lymph # (Auto) 2.3 [place] # (Auto) 0.7 Eos # (Auto) 0.1 Baso # (Auto) 0.1 Immature Gran % 0.5 Nucleated RBC % 0.0 Immature Gran # 0.04 Nucleated RBCs # 0.00 INR PT Patient/Control Mix Sodium Potassium Chloride Carbon Dioxide Anion Gap BUN Creatinine GFR Calculation BUN/Creatinine Ratio Glucose POC Glucose 106 Calculated Osmolality Calcium Ferritin Total Bilirubin 2.70 H Direct Bilirubin 0.80 H Indirect Bilirubin 1.9 H AST 32 ALT 15 Alkaline Phosphatase 105 Total Protein 7.1 Albumin 3.7 Vitamin B12 Folate Blood Type Antibody Screen Crossmatch Blood Bank Comment 03/04/17 03/04/17 04:43 04:43 WBC RBC Hgb Hct MCV MCH MCHC RDW Plt Count MPV Neut % (Auto) Lymph % (Auto) [place] % (Auto) Eos % (Auto) Baso % (Auto) Neut # (Auto) Lymph # (Auto) [place] # (Auto) Eos # (Auto) Baso # (Auto) Immature Gran % Nucleated RBC % Immature Gran # Nucleated RBCs # INR 1.4 PT Patient/Control Mix 15.6 Sodium 140 Potassium 3.2 L Chloride 94 L Carbon Dioxide 36 H Anion Gap 13.2 BUN 22 H Creatinine 4.00 H GFR Calculation 11 BUN/Creatinine Ratio 5.00 L Glucose 107 H POC Glucose Calculated Osmolality 281.4 Calcium 9.8 Ferritin Total Bilirubin Direct Bilirubin Indirect Bilirubin AST ALT Alkaline Phosphatase Total Protein Albumin Vitamin B12 Folate Blood Type Antibody Screen Crossmatch Blood Bank Comment
[2017-03-04] MEDS: CARVEDILOL 6.25 MG TABLET PO SCH ×2 (08:09→20:31)
[2017-03-04] MEDS: amLODIPine 5 MG TABLET PO SCH (08:09)
[2017-03-04] MEDS: CALCIUM ACETATE 667 MG CAPSULE PO SCH ×3 (08:09→16:04)
[2017-03-04] MEDS: clonazePAM 0.5 MG TABLET PO SCH ×3 (08:09→20:31)
[2017-03-04] MEDS: levETIRAcetam 500 MG TABLET PO SCH ×2 (08:09→20:31)
[2017-03-04] MEDS: sitaGLIPtin 25 MG TABLET PO SCH (08:09)
[2017-03-04] MEDS: FLUTICASONE 50 MCG NASAL SPRAY 16 GM BOTTLE BOTH NARES SCH (08:10)
[2017-03-04] MEDS: AZELASTINE NASAL 137 MCG/SPRAY 30 ML BOTTLE BOTH NARES SCH ×2 (08:10→20:31)
[2017-03-04] MEDS: BUDESONIDE/FORMOTEROL 160-4.5 INHALER 6 GM INH SCH ×2 (08:11→20:31)
--- NOTE | 2017-03-04 09:01 | Ultrasound Report ---
US abd doppler limited Indication: Hepatomegaly. Limited abdominal ultrasound with liver Dopplers: Streeter scale, color Doppler and pulse Doppler waveform interrogation of the vascular structures of the liver performed. Liver is minimally enlarged measuring 20 cm craniocaudal length. No focal lesion is identified. The IVC, aorta, main portal vein, left portal vein, right portal vein, right hepatic vein and left hepatic vein are all widely patent with antegrade flow throughout. Right kidney is 6.5 cm long, atrophy. Common bile duct 6 mm diameter. Gallbladder surgically absent. Pancreas unremarkable. Impression: Hepatomegaly. No vascular abnormality identified. Status post cholecystectomy. Renal atrophy, on dialysis. PROCEDURE INTERPRETED AT [facility] DEPARTMENT OF RADIOLOGY Final Report Signed by: Yury Elizondo M.D.
--- NOTE | 2017-03-04 09:22 | Nephrology Progress Note ---
Nephrology - PN: Subj Interval history: Patient is resting comfortably no acute changes. Anticoagulation is being adjusted by cardiology. Hemodynamics have been stable. Exam (PN)-Nephrology - Vital Signs Vital signs: Period Temp Pulse Resp BP Sys/Vargas Pulse Ox Last 24 Hr 96.8 F-97.6 F 86-94 18-20 116-132/58-72 94-100 - General Appearance General appearance: well-developed, well-nourished EENT: ATNC Neck: supple Respiratory: clear Cardiology: regular rate, regular rhythm Gastrointestinal: normoactive bowel sounds, no tenderness Neurologic: alert and oriented x3 Musculoskeletal: no clubbing Psychiatric: mood/affect appropriate - Lab 03/04/17 04:43 03/04/17 04:43 Most recent lab results Calcium 9.8 MG/DL (8.5-10.1) 03/04/17 04:43 Magnesium 2.0 MG/DL (1.8-2.4) 03/02/17 23:30 Assessment and Plan (1) Hx of mechanical aortic valve replacement Status: Chronic Current Visit: Yes (2) Weakness Status: Chronic Current Visit: No (3) Chronic anticoagulation Status: Chronic Current Visit: No (4) ESRD on dialysis Problem details: No acute indication for HD today. Status: Chronic Assessment and plan: Continue with scheduled hemodialysis Current Visit: No (5) Anemia Status: Acute Current Visit: No Qualifiers: Other causes of anemia: acute posthemorrhagic (6) SOB (shortness of breath) Status: Acute Current Visit: No
--- NOTE | 2017-03-04 12:16 | Gastrointestinal Progress Note ---
Assessment and Plan (1) AVM (arteriovenous malformation) of small bowel, acquired Status: Acute Assessment and plan: This is a patient of Dr. Luke's who is been seen on multiple visits. These AVMs have been diagnosed on small bowel capsule endoscopy done in 2011 and may represent another source for the patient's blood loss noted upper endoscopy done by Dr. Luke his failed to show any proximal lesions. It may be worthwhile to look at the patient's J-pouch to ensure that there are no AVMs within the reach of a EGD versus colonoscope inserted into the terminal ileum, especially she does demonstrate bright red blood per rectum. She does not seem to be actively bleeding on physical exam at this time. If she does have active bleeding it may be worthwhile to repeat the camera/capsule endoscopy versus double balloon endoscopy at a center with this option available versus enema with a more immediate colonoscope insertion into the terminal ileum with cauterization of bleeding vessel if found. Tagged red blood cell scan may be helpful, again if the patient is actively bleeding, which I have not seen evidence of yet. Patient is due to get blood on dialysis today we will continue to observe her stools on a renal diet and consider capsule endoscopy repeat Sunday if Dr. Luke agrees. 03/04/17--hematocrit post transfusion went up from 26.5 to her present level of 32.5%. No bright red blood per rectum, would suggest at this point performing another capsule endoscopy to look at the small bowel not seen on previous EGD. This has been arranged for tomorrow. Current Visit: Yes (2) Hepatomegaly Status: Acute Assessment and plan: The patient likely has hepatic congestion due to pulmonary hypertension and possibly difficulties with her pulmonic valve. This extends over a hands breath down to her right upper abdomen and is resulting in some pain in her abdomen but probably has minimal effect on her anemia. Will check her liver function tests and do an ultrasound to document this as well as ruling out mass within the liver, and patency of the major vessels. 03/04/17--There is no evidence of mass in the liver but hepatomegaly is confirmed with ultrasound. The gallbladder is surgically absent and patient does have a slight ductal dilatation to 6 mm which is not that unusual postcholecystectomy. There is a slight elevation of the patient's total bilirubin to 2.7 most of this is indirect as might be seen with Gilbert's syndrome or hemolysis, there is some slight elevation the direct bilirubin as well. Transaminases are completely normal. Current Visit: Yes (3) Status post total colectomy Status: Acute Assessment and plan: I was asked by 1 of the patient's previous manufacturing clerk to find out why the patient had not had a colonoscopy recently. Unfortunately the entire colon is surgically resected back in July 2011 due to right sided ischemia secondary to severe constipation. She has had a small bowel reconstruction into a J- pouch and although this could be a source for bleeding usually it also presents with diarrhea/pouchitis. It might be worthwhile to examine this small bowel reservoir endoscopically, especially if the patient develops bright red blood per rectum, but given the fact that the stools are dark this is more likely to be a proximal small bowel bleed. A capsule endoscopy should reveal the bleeding potential of AVMs still present at this time. Again double balloon endoscopy is a potential treatment at a higher level of care facility. 03/04/17--Capsule endoscopy tomorrow. Current Visit: Yes (4) Symptomatic anemia Status: Acute Assessment and plan: The patient is due to get 2 more units of blood on dialysis today. 03/04/17--She is doing well post 2 unit transfusion during dialysis. Current Visit: Yes Gastroenterology - PN: Subj Interval history: No new complaints Exam (Progress Note) - Constitutional Vitals: Period Temp Pulse Resp BP Sys/Vargas Pulse Ox Last 24 Hr 96.8 F-97.6 F 86-94 18-20 116-132/58-72 94-100 General appearance: no acute distress - Eye Eye exam: Present: EOMI - Respiratory Respiratory exam: Present: clear to auscultation bilaterally - Cardiovascular Cardiovascular exam: Present: regular rate and rhythm - GI/Abdominal GI/Abdominal exam: Present: normal bowel sounds, soft. Absent: distended, guarding, tenderness - Neurological Exam Neurological exam: Present: alert - Psychiatric Psychiatric exam: Present: normal affect, normal mood - Skin Skin exam: Present: warm Results - Labs CBC & BMP: 03/04/17 04:43 03/04/17 04:43
--- NOTE | 2017-03-04 13:43 | Hospitalist Progress Note ---
Assessment and Plan (1) GI bleed Status: Acute Assessment and plan: Patient has had a total of 3units of packed cells transfused. GI is performing another capsule endoscopy to look at the small bowel not seen on previous EGD in am.Patient has a history of AVM of small bowel. Current Visit: No (2) Symptomatic anemia Status: Acute Assessment and plan: continue prn transfusion.Patient has a history of AVM. She is to have a procedure in am. Monitor cbc Current Visit: No (3) AVM (arteriovenous malformation) of small bowel, acquired Status: Acute Assessment and plan: GI is following. They are considering a repeat capsule endoscopy in am Current Visit: Yes (4) Hx of mechanical aortic valve replacement Status: Chronic Assessment and plan: Patient has a history of mechanical heart valve placement in the aortic and pulmonary valves. She will need some anticoagulation therapy though she is bleeding.Cardiology is advising. Current Visit: Yes (5) ESRD on dialysis Problem details: No acute indication for HD today. Status: Chronic Assessment and plan: Nephrology is following. Current Visit: No Hospitalist: Subjective Interval history: Patient was sleeping. She has had a total of 3units of packed cell transfused. Exam - Constitutional Vitals: Period Temp Pulse Resp BP Sys/Vargas Pulse Ox Last 24 Hr 96.8 F-99.2 F 83-94 18-20 112-132/58-78 93-100 General appearance: no acute distress - Head Head exam: Present: normal inspection - Respiratory Respiratory exam: Present: clear to auscultation bilaterally - Cardiovascular Cardiovascular exam: Present: regular rate and rhythm - GI/Abdominal GI/Abdominal exam: Present: normal bowel sounds - Back Exam Back exam: Present: normal inspection - Neurological Exam Neurological exam: Present: alert, oriented X3 Results - Labs CBC & BMP: 03/04/17 04:43 03/04/17 04:43 Lab Results: I have reviewed the past 24 hour labs
[2017-03-04] MEDS: CINACALCET 30 MG TABLET PO SCH (16:04)
[2017-03-04] MEDS: ONDANSETRON 4 MG/2 ML VIAL IV PRN ×2 (16:04→20:30)
[2017-03-04] MEDS ORDERED: MAGNESIUM CITRATE 300 ML BOTTLE PO ONE (18:00)
[2017-03-04] MEDS: rOPINIRole 0.25 MG TABLET PO SCH (20:30)
[2017-03-04] MEDS: MIRTAZAPINE 15 MG TABLET PO PRN (20:31)
[2017-03-04] MEDS: PRAVASTATIN 20 MG TABLET PO SCH (20:31)
[2017-03-05] MEDS: ONDANSETRON 4 MG/2 ML VIAL IV PRN (00:06)
[2017-03-05 05:47] LABS: Basophils # 0.1 10*3/uL (0.0-0.2); Basophils % 0.7 % (0.0-0.8); Eosinophils # 0.2 10*3/uL (0.0-0.87); Eosinophils % 2.1 % (0.00-10.9); Hematocrit 34.1 VOL% (35.7-47.0); Hemoglobin 10.8 GM/DL (12.0-16.0); Immature Granulocytes % 0.5 %; Immature Granulocytes Absolute 0.04 #; Lymphocytes # 2.4 10*3/uL (1.4-4.0); Lymphocytes % 28.2 % (21.3-54.2); Mean Corpuscular HGB Conc 31.7 GM/DL (32-36); Mean Corpuscular Hemoglobin 30 PG (27-34); Mean Corpuscular Volume 95.5 FL (87-102); Monocytes # 0.8 10*3/uL (0.11-0.8); Monocytes % 9.5 % (1.7-12.7); NRBC # 0.02 10*3/uL; Neutrophils # 5.1 10*3/uL (1.4-7.4); Platelet Count 215 T/CUMM (130-400); Red Blood Count 3.57 MC/CUMM (3.8-5.5); White Blood Count 8.6 T/CUMM (4-12)
[2017-03-05 05:53] LABS: INR 1.2
[2017-03-05 06:22] LABS: Calcium 10.1 MG/DL (8.5-10.1); Osmolality,Calculated 290.4 MOS/KG (273-304); Potassium 3.6 MMOL/L (3.5-5.1)
[2017-03-05] MEDS: LEVOTHYROXINE 100 MCG TABLET PO SCH ×2 (06:37→09:42)
--- NOTE | 2017-03-05 08:27 | Physician Query Form ---
CLICK EDIT DOCUMENT TO SELECT QUERY ANSWER --> OK --> SIGN Megan Kendrick RN, CCDS Certified Clinical Print Shop Stenographer W) [phone] (f) [phone] [email or web address] PROVIDERS: Make your selection(s) from the choices in EACH section by typing an "x" and enter comments in the comment section. Please use your independent medical judgment in providing your response. This request does not imply that any particular answer is desired or expected. CLINICAL INDICATORS: (Providers should not edit this section) The medical record indicates that the patient was admitted with GI bleeding, HH of 6.5/21.4 and the patient was given 3 units of blood. Based on the above, could you clarify which of the following conditions you are evaluating, treating, and/or monitoring? ( ) Blood loss anemia (x ) acute ( ) chronic ( ) acute on chronic ( ) Acute blood loss anemia on baseline chronic anemia ( ) Acute blood loss anemia as a complication of a procedure ( ) Iron deficiency anemia not associated with blood loss ( ) Dilutional anemia due to IV fluids ( ) Anemia due to chemotherapy ( ) Anemia due to neoplastic disease ( ) Anemia due to chronic kidney disease ( ) Pernicious anemia ( ) Aplastic anemia ( ) Hemolytic anemia ( ) immune ( ) non-immune - please specify cause: ( ) Anemia due to other condition, please specify: ( ) Clinically unable to determine COMMENTS: PLEASE ALSO DOCUMENT RESPONSE IN PROGRESS NOTES AND/OR DISCHARGE SUMMARY Use of terms such as suspected, likely, or probable (associated with a specific diagnosis that is being evaluated, monitored, or treated as if it exists) are acceptable and can be restated in the discharge summary if not ruled out. MTDD
--- NOTE | 2017-03-05 08:54 | Gastrointestinal Progress Note ---
<AxelMariella Kenroy - Last Filed: 03/05/17 08:51> Assessment and Plan (1) Symptomatic anemia Status: Acute Assessment and plan: 03/05-History of small bowel AVMs, presenting with anemia. No overt bleeding overnight. Hgb stable at 10.8. Small bowel camera scheduled for today however will be postponed to tomorrow due to scheduling conflicts. Total of 3 units PRBC this hospitalization. EGD last month with findings of small hiatal hernia. Continue diet, for dialysis today, monitor HH. Reschedule for SBC tomorrow. Check stool for occult blood. Plan and addendum to follow by Dr luke. Current Visit: No Gastroenterology - PN: Subj Interval history: CC: Anemia Pt is seen awake and alert lying in bed. She states she had an uneventful night. States she is feeling some better today. She was scheduled for a small bowel camera today however due to limited availability of equipment and two prior camera endoscopy already scheduled, we will reschedule this for tomorrow. Hemoglobin is stable at 10.8 following 3 units of PRBC. She is for dialysis today. She has had a normal bowel movement this morning. Stool for occult blood is pending. Abdomen is soft, nontender. ROS: Denies SOB or chest pain Exam (Progress Note) - Constitutional Vitals: Period Temp Pulse Resp BP Sys/Vargas Pulse Ox Last 24 Hr 96.8 F-99.2 F 83-96 18-20 112-157/66-97 93-97 General appearance: normal weight, no acute distress - Head Head exam: Present: normal inspection, normocephalic - Eye Eye exam: Present: other (lids and conjunctiva unremarkable). Absent: scleral icterus - ENT ENT exam: Present: normal exam, normal oropharynx - Neck Neck exam: Present: normal inspection - Respiratory Respiratory exam: Present: clear to auscultation bilaterally. Absent: rales, rhonchi, wheezes - Cardiovascular Cardiovascular exam: Present: regular rate and rhythm. Absent: diastolic murmur , JVD, systolic murmur - GI/Abdominal GI/Abdominal exam: Present: normal bowel sounds, soft. Absent: ascites, distended, mass, organomegaly, tenderness - Extremities Exam Extremities exam: Present: normal inspection, full ROM - Back Exam Back exam: Present: normal inspection - Neurological Exam Neurological exam: Present: alert, oriented X3 - Psychiatric Psychiatric exam: Present: normal affect, normal mood - Skin Skin exam: Present: normal color, warm, dry Results - Labs CBC & BMP: 03/05/17 04:50 03/05/17 04:50 Lab Results: I have reviewed the past 24 hour labs <Daroin Luke - Last Filed: 03/05/17 12:56> Exam (Progress Note) - Constitutional Vitals: Period Temp Pulse Resp BP Sys/Vargas Pulse Ox Last 24 Hr 96.4 F-98.9 F 87-96 18-21 105-157/55-97 93-98 Results - Labs CBC & BMP: 03/05/17 04:50 03/05/17 04:50
[2017-03-05] MEDS: sitaGLIPtin 25 MG TABLET PO SCH (09:41)
[2017-03-05] MEDS: levETIRAcetam 500 MG TABLET PO SCH ×2 (09:41→22:03)
[2017-03-05] MEDS: clonazePAM 0.5 MG TABLET PO SCH ×3 (09:41→22:03)
[2017-03-05] MEDS: amLODIPine 5 MG TABLET PO SCH (09:42)
[2017-03-05] MEDS: CARVEDILOL 6.25 MG TABLET PO SCH ×2 (09:42→22:03)
[2017-03-05] MEDS: FLUTICASONE 50 MCG NASAL SPRAY 16 GM BOTTLE BOTH NARES SCH (09:43)
[2017-03-05] MEDS: BUDESONIDE/FORMOTEROL 160-4.5 INHALER 6 GM INH SCH ×2 (09:43→22:02)
[2017-03-05] MEDS: CALCIUM ACETATE 667 MG CAPSULE PO SCH ×3 (09:43→16:28)
[2017-03-05] MEDS: AZELASTINE NASAL 137 MCG/SPRAY 30 ML BOTTLE BOTH NARES SCH ×2 (09:43→22:02)
[2017-03-05] MEDS ORDERED: SODIUM CHLORIDE 0.9% 1,000 ML IV SCH (11:00)
--- NOTE | 2017-03-05 12:36 | Cardiology Progress Note ---
Angelo Crow Vanessa RN, am scribing for, and in the presence of, Tom Escobar MD 12:33. Assessment and Plan - Time spent with patient Time spent with patient: Greater than 30 minutes (1) Chronic anticoagulation Status: Chronic Assessment and plan: Due to recent mechanical mitral valve and aortic valve replacements, patient requires chronic anticoagulation. Pending further gastroenterology workup and improvement of anemia, anticoagulant can be reintroduced as soon as possible. Current Visit: No (2) Upper GI bleed Status: Acute Assessment and plan: No melena or aby bleeding. H&H stable at 10.8/34.1. Previous history of AVMs her EGD findings, and she is for small bowel capsule endoscopy tomorrow to evaluate for active bleeding. Current Visit: Yes (3) History of mitral valve replacement with mechanical valve Status: Chronic Assessment and plan: Mechanical mitral valve replacement in November 2016. We will need to resume anticoagulation as soon as possible. Current Visit: No (4) History of coronary artery bypass graft x 1 Status: Chronic Assessment and plan: Coronary artery bypass graft 1 with SVG to the RCA in November 2016. Current Visit: Yes (5) AVM (arteriovenous malformation) of small bowel, acquired Status: Chronic Assessment and plan: Known history. Defer management to gastroenterology. Current Visit: Yes (6) Coronary artery disease Status: Chronic Assessment and plan: Clinically, no findings for ACS. Patient has had no cardiac complaint. Current Visit: Yes (7) Hx of mechanical aortic valve replacement Status: Chronic Assessment and plan: Mechanical aortic valve replacement in November 2016. Patient will require anticoagulation. Current Visit: Yes (8) ESRD on dialysis Problem details: No acute indication for HD today. Status: Chronic Assessment and plan: Hemodialysis per nephrology recommendations. Current Visit: No (9) History of COPD Status: Chronic Assessment and plan: This appears stable at this time. Current Visit: No (10) Hypothyroidism Status: Chronic Assessment and plan: Thyroid supplement has been continued. Current Visit: Yes (11) Dyslipidemia Status: Chronic Assessment and plan: Statin has been continued. Current Visit: Yes (12) Dietary noncompliance Problem details: Dietary to provide handout of high potassium containing foods to avoid. Status: Chronic Current Visit: No Cardiology - PN: Subj Interval history: PRIMARY PROPERTY COORDINATOR: DR. ESCOBAR SUMMARY: Ms. Betancourt is 61-year-old female with risk factors significant for hypertension, hyperlipidemia, diabetes, former tobacco use. Past medical history includes COPD, CHF, end-stage renal disease with hemodialysis, anemia with GI bleeding. Recent cardiac history includes CABG 1 and mechanical aortic and mitral valve replacement in November 2016. She required hospitalization in early January 2017 for acute blood loss anemia and supratherapeutic INR 18.8. After this improved, she was discharged home and returned approximately 4 days later with INR of 5, melena, and she was noted to have acute GI bleeding due to AV malformations in the small bowel. Patient was discharged home on February 17, and she presented to [facility] ER on March 02 with complaints of weakness and dizziness. Reports some mild melena. INR 1.6. Significant anemia with H&H 6.5/21.4, and this has improved after 3 units PRBC transfusion to H&H currently 10.8/34.1. Cardiology was asked to see as patient has history of mechanical valves and requires anticoagulation. February UPDATE: Ms. Betancourt is sleeping soundly upon exam this morning. She is in no acute distress, and she rouses easily. Reports she experience some chest wall soreness while she was asleep, and this discomfort is aggravated when sitting up and is reproducible upon palpation. No shortness of breath. Denies abdominal pain, melena. Reports she had some BRBPR admission, but she has not had any recurrent bleeding. H&H is stable this morning. INR is 1.2. Small bowel capsule endoscopy is being rescheduled for tomorrow due to limited equipment availability. Afebrile, vitals stable. Coumadin is being held at this time. Labs reviewed. H&H as above. Potassium 3.6. 6.4. She routinely hemodialyzes Sunday, , Sunday. Exam (Progress Note) - Constitutional Vitals: Period Temp Pulse Resp BP Sys/Vargas Pulse Ox Last 24 Hr 96.8 F-99.2 F 83-96 18-20 105-157/55-97 93-98 Exam: General appearance: normal weight, no acute distress. Head exam: normal inspection, atraumatic Eye exam: Pupils are equal and reactive. EOMI. There is no trauma. Neck exam: normal inspection no JVD. No carotid bruit. Trachea is in midline. Respiratory exam: clear to auscultation bilaterally posteriorly and anteriorly with good air movement. No rales, rhonchi or wheezes. Cardiovascular exam: regular rate and rhythm, she has appropriate mechanical valve sounds of her mechanical prosthetic aortic and mitral valves. No precordial lift. No bruits over the major arteries. Peripheral Pulses: 2+ throughout. GI/Abdominal exam: normal bowel sounds, soft and nontender, no abdominal bruits or pulsatile masses. Musculoskeletal/Extremities exam: normal inspection without edema or cyanosis. No deformities or trauma. Left upper extremity with AV fistula. Small amount ecchymotic bruising bilateral upper extremities. Neurological exam: alert, oriented X3. There is no gross neurologic deficits. Psychiatric exam: normal affect, normal mood. Cognitive function is grossly intact. Patient does not appear anxious or depressed. Skin exam: normal color, warm, dry, intact. No rashes or other skin lesions. Result/EKG - Labs CBC & BMP: 03/05/17 04:50 03/05/17 04:50 Lab Results: I have reviewed the past 24 hour labs Labs: Laboratory Results - last 24 hr 03/04/17 03/04/17 03/05/17 11:30 16:17 00:52 WBC RBC Hgb Hct MCV MCH MCHC RDW Plt Count MPV Neut % (Auto) Lymph % (Auto) [place] % (Auto) Eos % (Auto) Baso % (Auto) Neut # (Auto) Lymph # (Auto) [place] # (Auto) Eos # (Auto) Baso # (Auto) Immature Gran % Nucleated RBC % Immature Gran # Nucleated RBCs # INR PT Patient/Control Mix Sodium Potassium Chloride Carbon Dioxide Anion Gap BUN Creatinine GFR Calculation BUN/Creatinine Ratio Glucose POC Glucose 164 H 142 H 141 H Calculated Osmolality Calcium 03/05/17 03/05/17 03/05/17 04:50 04:50 04:50 WBC 8.6 RBC 3.57 L Hgb 10.8 L Hct 34.1 L MCV 95.5 MCH 30 MCHC 31.7 L RDW 22.0 H Plt Count 215 MPV 10.0 Neut % (Auto) 59.0 Lymph % (Auto) 28.2 [place] % (Auto) 9.5 Eos % (Auto) 2.1 Baso % (Auto) 0.7 Neut # (Auto) 5.1 Lymph # (Auto) 2.4 [place] # (Auto) 0.8 Eos # (Auto) 0.2 Baso # (Auto) 0.1 Immature Gran % 0.5 Nucleated RBC % 0.2 Immature Gran # 0.04 Nucleated RBCs # 0.02 INR 1.2 PT Patient/Control Mix 13.0 Sodium 140 Potassium 3.6 Chloride 92 L Carbon Dioxide 41 H Anion Gap 10.6 BUN 44 H Creatinine 6.40 H GFR Calculation 6 BUN/Creatinine Ratio 6.00 Glucose 110 H POC Glucose Calculated Osmolality 290.4 Calcium 10.1 03/05/17 07:34 WBC RBC Hgb Hct MCV MCH MCHC RDW Plt Count MPV Neut % (Auto) Lymph % (Auto) [place] % (Auto) Eos % (Auto) Baso % (Auto) Neut # (Auto) Lymph # (Auto) [place] # (Auto) Eos # (Auto) Baso # (Auto) Immature Gran % Nucleated RBC % Immature Gran # Nucleated RBCs # INR PT Patient/Control Mix Sodium Potassium Chloride Carbon Dioxide Anion Gap BUN Creatinine GFR Calculation BUN/Creatinine Ratio Glucose POC Glucose 110 H Calculated Osmolality Calcium - Diagnostic Findings Procedure: Chest x-ray: image reviewed by me, report reviewed by me - EKG EKG results: interpreted by me, no acute changes EKG shows: sinus rhythm Shawn Crow Michael, MD, personally performed the services described in this documentation, ascribed by Jolynn Stephens RN in my presence, and it is both accurate and complete [id number] .
[2017-03-05] MEDS ORDERED: PROPOFOL 200 MG/20 ML VIAL IV ONE (12:55)
[2017-03-05] MEDS ORDERED: LIDOCAINE 2% 5 ML VIAL ONE (12:55)
--- NOTE | 2017-03-05 13:11 | Anesthesia Post-Op ---
Anesthesia Post OP - Post Ansesthetic Evaluation Patient seen in post op: Yes Resp: within normal limits CV: within normal limits Mental: within normal limits Temp: within normal limits Ibzo-Xy-[id number]: within normal limits Nausea and Vomiting: within normal limits Pain: within normal limits
--- NOTE | 2017-03-05 13:12 | Operative Note ---
Date of procedure: 03/05/17 Pre-op diagnosis: GI bleed with melena Procedure: Procedure: Esophagogastroduodenoscopy Brief clinical abstract: 61-year-old female with end-stage renal disease is admitted with symptomatic anemia with weakness and recent black stools. Her hemoglobin was 6.5 on admission. She feels better after transfusion with 3 units packed red blood cells and has had no active bleeding noted here. Indication for procedure: GI bleed with melena Endoscopic findings:[After informed consent was obtained, the patient was placed in the left lateral decubitus position. The gastroscope was inserted in the upper esophagus under direct vision with no resistance encountered. Esophageal mucosa appeared normal with squamocolumnar junction sharply demarcated above a small hiatal hernia. The endoscope was advanced in the stomach which was carefully examined including retroflexed view of the cardia and fundus. There was a good bit of solid food material in the body and antrum of the stomach which limited visibility in the stomach to some degree. No mucosal abnormalities were seen. The pyloric channel, duodenal bulb, second and third portion of the duodenum were examined with no abnormality seen. The endoscope was removed. Patient appeared to tolerate the procedure well. Impression: #1 small hiatal hernia #2 retained food in stomach-could suggest gastric motility disorder Recommendations: Discuss with patient about possible colonoscopy. Anesthesia: MAC Surgeon / Physician: Darion Luke Estimated blood loss: none Specimens: none sent Condition: stable Disposition: post procedure unit Results - Labs CBC & BMP: 03/05/17 04:50 03/05/17 04:50 Discharge Plan - Discharge Medications No Action Ropinirole HCl 2 tablet PO BEDTIME OLANZapine [Olanzapine] 2.5 mg PO BID Cinacalcet HCl [Sensipar] 60 mg PO DAILY amLODIPine [Norvasc] 5 mg PO DAILY Ranolazine [Ranexa] 1,000 mg PO BID Montelukast Tab [Singulair Tab] 10 mg PO BEDTIME Temazepam [Restoril] 15 mg PO BEDTIME Pantoprazole Tab [Protonix Tab] 40 mg PO DAILY HYDROcodone/ACETAMIN 10-325 [[place] 10-325] 10 mg PO TID Cyclobenzaprine [Flexeril] 10 mg PO TID Promethazine Tab [Phenergan Tab] 50 mg PO Q6HR Warfarin [Coumadin] 2.5 mg PO WE Carvedilol [Coreg] 6.25 mg PO BID levETIRAcetam [Levetiracetam] 500 mg PO BID clonazePAM [Clonazepam] 1 mg PO TID Warfarin [Coumadin] 5 mg PO SUMOTUTHFRSA Budesonide/Formoterol 160-4.5 [Symbicort 160-4.5] 2 puffs INH BID Pravastatin [Pravachol] 20 mg PO BEDTIME Calcium Acetate [Phoslo] 667 mg PO 5X DAILY - Follow Up or Referral - Forms/Instructions
--- NOTE | 2017-03-05 13:15 | Hospitalist Progress Note ---
Assessment and Plan (1) GI bleed Status: Acute Assessment and plan: Patient has had a total of 3units of packed cells transfused. Patient has a history of AVM of small bowel. EGD showed small hiatal hernia and retained food in stomach-could suggest gastric motility disorder Plan For possible Colonoscopy For Pillcam in am Follow GI's recommendations Current Visit: No (2) Symptomatic anemia Status: Acute Assessment and plan: continue prn transfusion.Patient has a history of AVM. s/p EGD this am. Monitor cbc Current Visit: No (3) AVM (arteriovenous malformation) of small bowel, acquired Status: Chronic Assessment and plan: GI is following. S/p EGD Current Visit: Yes (4) Hx of mechanical aortic valve replacement Status: Chronic Assessment and plan: Patient has a history of mechanical heart valve placement in the aortic and pulmonary valves. She will need some anticoagulation therapy though she is bleeding.Cardiology is advising. Current Visit: Yes (5) ESRD on dialysis Problem details: No acute indication for HD today. Status: Chronic Assessment and plan: Nephrology is following. Current Visit: No Hospitalist: Subjective Interval history: Patient seen. She feels a bit tired. EGD done today showed small hiatal hernia and retained food in stomach-could suggest gastric motility disorder Her Pillcam has been rescheduled for am Exam - Constitutional Vitals: Period Temp Pulse Resp BP Sys/Vargas Pulse Ox Last 24 Hr 96.4 F-98.9 F 87-96 18-21 105-157/55-97 93-98 General appearance: no acute distress - Head Head exam: Present: normal inspection - Respiratory Respiratory exam: Present: clear to auscultation bilaterally - Cardiovascular Cardiovascular exam: Present: regular rate and rhythm - GI/Abdominal GI/Abdominal exam: Present: normal bowel sounds - Extremities Exam Extremities exam: Present: normal inspection - Neurological Exam Neurological exam: Present: alert, oriented X3 Results - Labs CBC & BMP: 03/05/17 04:50 03/05/17 04:50 Lab Results: I have reviewed the past 24 hour labs
[2017-03-05] MEDS ORDERED: HEPARIN LOCK FLUSH 500 UNIT/5 ML SYRINGE IV ONE (13:19)
--- NOTE | 2017-03-05 14:02 | Nephrology Progress Note ---
Nephrology - PN: Subj Interval history: Patient is doing acceptable no acute changes. Status post EGD done today. Hemodynamics are stable. Exam (PN)-Nephrology - Vital Signs Vital signs: Period Temp Pulse Resp BP Sys/Vargas Pulse Ox Last 24 Hr 96.4 F-98.9 F 83-96 18-21 105-157/55-97 93-98 - General Appearance General appearance: well-developed, well-nourished EENT: ATNC Neck: supple Respiratory: clear Cardiology: regular rate, regular rhythm Gastrointestinal: normoactive bowel sounds, no tenderness Neurologic: alert and oriented x3 Musculoskeletal: no clubbing Psychiatric: mood/affect appropriate - Lab 03/05/17 04:50 03/05/17 04:50 Most recent lab results Calcium 10.1 MG/DL (8.5-10.1) 03/05/17 04:50 Magnesium 2.0 MG/DL (1.8-2.4) 03/02/17 23:30 Assessment and Plan (1) Hx of mechanical aortic valve replacement Status: Chronic Current Visit: Yes (2) Weakness Status: Chronic Current Visit: No (3) Chronic anticoagulation Status: Chronic Current Visit: No (4) ESRD on dialysis Problem details: No acute indication for HD today. Status: Chronic Assessment and plan: Continue with scheduled hemodialysis Current Visit: No (5) Anemia Status: Acute Current Visit: No Qualifiers: Other causes of anemia: acute posthemorrhagic (6) SOB (shortness of breath) Status: Acute Current Visit: No
[2017-03-05] MEDS: CINACALCET 30 MG TABLET PO SCH (16:28)
[2017-03-05] MEDS ORDERED: ALUMINUM/MAGNES/SIMETH MAX STR 30 ML UDCUP PO PRN (17:38)
[2017-03-05] MEDS: MIRTAZAPINE 15 MG TABLET PO PRN (22:02)
[2017-03-05] MEDS: rOPINIRole 0.25 MG TABLET PO SCH (22:02)
[2017-03-05] MEDS: PRAVASTATIN 20 MG TABLET PO SCH (22:02)
[2017-03-06 07:26] LABS: Basophils # 0.1 10*3/uL (0.0-0.2); Basophils % 0.7 % (0.0-0.8); Eosinophils # 0.3 10*3/uL (0.0-0.87); Eosinophils % 3.4 % (0.00-10.9); Hematocrit 31.3 VOL% (35.7-47.0); Immature Granulocytes % 0.4 %; Immature Granulocytes Absolute 0.03 #; Lymphocytes # 2.1 10*3/uL (1.4-4.0); Lymphocytes % 25.5 % (21.3-54.2); Mean Corpuscular HGB Conc 31.9 GM/DL (32-36); Mean Corpuscular Hemoglobin 31 PG (27-34); Mean Corpuscular Volume 95.7 FL (87-102); Mean Platelet Volume 10.2 FL (9.6-12.0); Monocytes # 0.7 10*3/uL (0.11-0.8); Neutrophils # 5.1 10*3/uL (1.4-7.4); Platelet Count 186 T/CUMM (130-400); Red Blood Count 3.27 MC/CUMM (3.8-5.5); Red Cell Distribution Width 21.8 % (9.3-17.3); White Blood Count 8.2 T/CUMM (4-12)
[2017-03-06 07:36] LABS: INR 1.2; PT Patient Result 12.7 SECS
[2017-03-06 07:56] LABS: Calcium 9.1 MG/DL (8.5-10.1); Osmolality,Calculated 290.7 MOS/KG (273-304); Potassium 3.7 MMOL/L (3.5-5.1)
[2017-03-06] MEDS: CALCIUM ACETATE 667 MG CAPSULE PO SCH ×3 (08:57→18:00)
[2017-03-06] MEDS: LEVOTHYROXINE 100 MCG TABLET PO SCH (08:57)
[2017-03-06] MEDS: AZELASTINE NASAL 137 MCG/SPRAY 30 ML BOTTLE BOTH NARES SCH ×2 (08:57→20:41)
[2017-03-06] MEDS: CARVEDILOL 6.25 MG TABLET PO SCH ×2 (08:57→20:41)
[2017-03-06] MEDS: clonazePAM 0.5 MG TABLET PO SCH ×3 (08:58→20:41)
[2017-03-06] MEDS: FLUTICASONE 50 MCG NASAL SPRAY 16 GM BOTTLE BOTH NARES SCH (08:58)
[2017-03-06] MEDS: amLODIPine 5 MG TABLET PO SCH (08:58)
[2017-03-06] MEDS: levETIRAcetam 500 MG TABLET PO SCH ×2 (08:58→20:41)
[2017-03-06] MEDS: sitaGLIPtin 25 MG TABLET PO SCH (08:58)
[2017-03-06] MEDS: BUDESONIDE/FORMOTEROL 160-4.5 INHALER 6 GM INH SCH ×2 (08:59→21:00)
--- NOTE | 2017-03-06 11:45 | Nephrology Progress Note ---
Nephrology - PN: Subj Interval history: The patient is resting comfortably no acute changes. Hematocrit noted to be 31. No shortness of breath or chest pain. Plan for hemodialysis today. Exam (PN)-Nephrology - Vital Signs Vital signs: Period Temp Pulse Resp BP Sys/Vargas Pulse Ox Last 24 Hr 96.4 F-98.4 F 79-87 18-21 105-158/51-86 92-100 - General Appearance General appearance: well-developed, well-nourished EENT: ATNC Neck: supple Respiratory: clear Cardiology: regular rate, regular rhythm Gastrointestinal: normoactive bowel sounds, no tenderness Neurologic: alert and oriented x3 Musculoskeletal: no clubbing Psychiatric: mood/affect appropriate, cooperative - Lab 03/06/17 06:36 03/06/17 06:36 Most recent lab results Calcium 9.1 MG/DL (8.5-10.1) 03/06/17 06:36 Magnesium 2.0 MG/DL (1.8-2.4) 03/02/17 23:30 Assessment and Plan (1) Hx of mechanical aortic valve replacement Status: Chronic Current Visit: Yes (2) Weakness Status: Chronic Current Visit: No (3) Chronic anticoagulation Status: Chronic Current Visit: No (4) ESRD on dialysis Problem details: No acute indication for HD today. Status: Chronic Assessment and plan: Continue with scheduled hemodialysis Current Visit: No (5) Anemia Status: Acute Current Visit: No Qualifiers: Other causes of anemia: acute posthemorrhagic (6) SOB (shortness of breath) Status: Resolved Current Visit: No
[2017-03-06] MEDS ORDERED: BISACODYL 5 MG TABLET PO ONE (12:00)
--- NOTE | 2017-03-06 13:12 | Gastrointestinal Progress Note ---
Assessment and Plan (1) Symptomatic anemia Status: Acute Assessment and plan: 03/06-hemoglobin holding at 10. EGD findings noted. Plan for colonoscopy on tomorrow. Plan addendum follow Dr. Luke. 03/05-History of small bowel AVMs, presenting with anemia. No overt bleeding overnight. Hgb stable at 10.8. Small bowel camera scheduled for today however will be postponed to tomorrow due to scheduling conflicts. Total of 3 units PRBC this hospitalization. EGD last month with findings of small hiatal hernia. Continue diet, for dialysis today, monitor HH. Reschedule for SBC tomorrow. Check stool for occult blood. Plan and addendum to follow by Dr luke. Current Visit: No Gastroenterology - PN: Subj Interval history: CC: GI bleed melena Patient is seen awake and alert in dialysis. States she had an uneventful night. She denies any abdominal pain, nausea or vomiting. Hemoglobin is holding today at 10. EGD findings on yesterday noted. Discuss further with patient on proceeding with colonoscopy she wishes to do so while she is in the hospital. Following dialysis we will begin her prep. Patient states that she is having a headache and some back pain however discussed with patient that if the prep is too taxing, need be, we can extend this over 2 days. She states that she will attempt to finish the prep today. Abdomen soft, nontender. ROS: Denies shortness of breath or chest pain Exam (Progress Note) - Constitutional Vitals: Period Temp Pulse Resp BP Sys/Vargas Pulse Ox Last 24 Hr 96.4 F-98.4 F 79-86 18-20 112-158/51-86 92-100 General appearance: normal weight, no acute distress - Head Head exam: Present: normal inspection, normocephalic - Eye Eye exam: Present: other (Lids and conjunctive are unremarkable). Absent: scleral icterus - ENT ENT exam: Present: normal exam, normal oropharynx - Neck Neck exam: Present: normal inspection - Respiratory Respiratory exam: Present: clear to auscultation bilaterally. Absent: rales, rhonchi, wheezes - Cardiovascular Cardiovascular exam: Present: regular rate and rhythm. Absent: diastolic murmur , JVD, systolic murmur - GI/Abdominal GI/Abdominal exam: Present: normal bowel sounds, soft. Absent: ascites, distended, mass, organomegaly, tenderness - Extremities Exam Extremities exam: Present: normal inspection, full ROM - Back Exam Back exam: Present: normal inspection - Neurological Exam Neurological exam: Present: alert, oriented X3 - Psychiatric Psychiatric exam: Present: normal affect, normal mood - Skin Skin exam: Present: normal color, warm, dry Results - Labs CBC & BMP: 03/06/17 06:36 03/06/17 06:36 Lab Results: I have reviewed the past 24 hour labs
[2017-03-06] MEDS ORDERED: POLYETHYLENE GLYCOL POWDER 255 GM BOTTLE PO ONE (14:00)
--- NOTE | 2017-03-06 15:26 | Hospitalist Progress Note ---
Assessment and Plan (1) GI bleed Status: Acute Assessment and plan: Patient has had a total of 3units of packed cells transfused. Patient has a history of AVM of small bowel. EGD showed small hiatal hernia and retained food in stomach-could suggest gastric motility disorder Plan For Colonoscopy in am Pillcam canceled Follow GI's recommendations Current Visit: No (2) Symptomatic anemia Status: Acute Assessment and plan: continue prn transfusion.Patient has a history of AVM. s/p EGD . Monitor cbc Current Visit: No (3) AVM (arteriovenous malformation) of small bowel, acquired Status: Chronic Assessment and plan: GI is following. S/p EGD Current Visit: Yes (4) Hx of mechanical aortic valve replacement Status: Chronic Assessment and plan: Patient has a history of mechanical heart valve placement in the aortic and pulmonary valves. She will need some anticoagulation therapy though she is bleeding.Cardiology is advising. Current Visit: Yes (5) ESRD on dialysis Problem details: No acute indication for HD today. Status: Chronic Assessment and plan: Nephrology is following. Current Visit: No Hospitalist: Subjective Interval history: Patient states she feels tired. Pillcam has been canceled and she will be having a Colonoscopy in am. Exam - Constitutional Vitals: Period Temp Pulse Resp BP Sys/Vargas Pulse Ox Last 24 Hr 96.4 F-98.4 F 79-89 18-20 104-158/51-86 92-100 General appearance: no acute distress - Head Head exam: Present: normal inspection - Respiratory Respiratory exam: Present: clear to auscultation bilaterally - Cardiovascular Cardiovascular exam: Present: regular rate and rhythm - GI/Abdominal GI/Abdominal exam: Present: normal bowel sounds - Extremities Exam Extremities exam: Present: normal inspection - Neurological Exam Neurological exam: Present: alert, oriented X3 Results - Labs CBC & BMP: 03/06/17 06:36 03/06/17 06:36 Lab Results: I have reviewed the past 24 hour labs
--- NOTE | 2017-03-06 16:42 | Cardiology Progress Note ---
Angelo Crow Vanessa, RN, am scribing for, and in the presence of, Tom Escobar MD 16:42. Assessment and Plan - Time spent with patient Time spent with patient: Greater than 30 minutes (1) Chronic anticoagulation Status: Chronic Assessment and plan: Due to recent mechanical mitral valve and aortic valve replacements, patient will require anticoagulation. Upper endoscopy yesterday revealed small hiatal hernia and retained gastric contents but not acute bleeding source. Small bowel capsule endoscopy today to evaluate for bleeding AVM's. Pending results, will reintroduce anticoagulant. Current Visit: No (2) Upper GI bleed Status: Acute Assessment and plan: No melena or aby bleeding. H&H stable at 10.0/31.3. Previous history of AVMs her EGD findings, and she is for small bowel capsule endoscopy today to evaluate for active bleeding. Current Visit: Yes (3) History of mitral valve replacement with mechanical valve Status: Chronic Assessment and plan: Mechanical mitral valve replacement in November 2016. Anticoagulation needs to be resumed as soon as possible. Current Visit: No (4) History of coronary artery bypass graft x 1 Status: Chronic Assessment and plan: Coronary artery bypass graft 1 with SVG to the RCA in November 2016. Current Visit: Yes (5) AVM (arteriovenous malformation) of small bowel, acquired Status: Chronic Assessment and plan: Known history. Defer management to gastroenterology. Current Visit: Yes (6) Coronary artery disease Status: Chronic Assessment and plan: Clinically, no findings for ACS. Patient has had no cardiac complaint. Current Visit: Yes (7) Hx of mechanical aortic valve replacement Status: Chronic Assessment and plan: Mechanical aortic valve replacement in November 2016. Patient will require anticoagulation. Current Visit: Yes (8) ESRD on dialysis Problem details: No acute indication for HD today. Status: Chronic Assessment and plan: Hemodialysis per nephrology recommendations. Current Visit: No (9) History of COPD Status: Chronic Assessment and plan: This appears stable at this time. Current Visit: No (10) Hypothyroidism Status: Chronic Assessment and plan: Thyroid supplement has been continued. Current Visit: Yes (11) Dyslipidemia Status: Chronic Assessment and plan: Statin has been continued. Current Visit: Yes (12) Dietary noncompliance Problem details: Dietary to provide handout of high potassium containing foods to avoid. Status: Chronic Current Visit: No Cardiology - PN: Subj Interval history: PRIMARY SKIVER WELT END: DR. ECSOBAR SUMMARY: Ms. Betancourt is 61-year-old female with risk factors significant for hypertension, hyperlipidemia, diabetes, former tobacco use. Past medical history includes COPD, CHF, end-stage renal disease with hemodialysis, anemia with GI bleeding. Recent cardiac history includes CABG 1 and mechanical aortic and mitral valve replacement in November 2016. She required hospitalization in early January 2017 for acute blood loss anemia and supratherapeutic INR 18.8. After this improved, she was discharged home and returned approximately 4 days later with INR of 5, melena, and she was noted to have acute GI bleeding due to AV malformations in the small bowel. Patient was discharged home on February 17, and she presented to [facility] ER on March 02 with complaints of weakness and dizziness. Reports some mild melena. INR 1.6. Significant anemia with H&H 6.5/21.4, and this has improved after 3 units PRBC transfusion to H&H currently 10.8/34.1. Cardiology was asked to see as patient has history of mechanical valves and requires anticoagulation. February UPDATE: Ms. Betancourt is sleeping soundly this morning. No acute distress noted. Upper endoscopy yesterday per Dr. Luke which revealed a small hiatal hernia and retained stomach contents suggestive of possible gastric motility disorder. Small bowel capsule endoscopy planned for today. Patient is not experiencing any chest pain, dyspnea, or other complaint. Coumadin remains on hold. H&H stable 10.1/31.3. Subtherapeutic INR 1.2. Electrolytes are within acceptable range. Current Medications Acetaminophen (Tylenol Tab) 650 mg PO Q4H PRN PRN Reason: Fever, Headache, Mild Pain Hydrocodone Bitart/Acetaminophen ([place] 5-325) 1 tablet PO Q6H PRN PRN Reason: Pain Moderate (4-7) Last Admin: 03/05/17 22:06 Dose: 1 tablet Al Hydrox/Mg Hydrox/Simethicone (Mylanta Max Strength Liquid) 30 ml PO Q6H PRN PRN Reason: Dyspepsia Amlodipine Besylate (Norvasc) 5 mg PO DAILY [facility] Last Admin: 03/05/17 09:42 Dose: 5 mg Azelastine HCl (Astelin) 1 spray BOTH NARES BID [facility] Last Admin: 03/05/17 22:02 Dose: 1 spray Budesonide/Formoterol Fumarate (Symbicort 160-4.5) 1 puff INH BID [facility] Last Admin: 03/05/17 22:02 Dose: 1 puff Calcium Acetate (Phoslo) 667 mg PO TID W/MEALS [facility] Last Admin: 03/05/17 16:28 Dose: 667 mg Carvedilol (Coreg) 6.25 mg PO BID [facility] Last Admin: 03/05/17 22:03 Dose: 6.25 mg Cinacalcet (Sensipar) 60 mg PO DAILY W/SUPPER [facility] Last Admin: 03/05/17 16:28 Dose: 60 mg Clonazepam (Klonopin) 1 mg PO TID [facility] Last Admin: 03/05/17 22:03 Dose: 1 mg Diphenhydramine HCl (Benadryl Inj) 50 mg IM Q6H PRN PRN Reason: Pruritis Fluticasone Propionate (Flonase) 1 spray BOTH NARES DAILY [facility] Last Admin: 03/05/17 09:43 Dose: Not Given Levetiracetam (Keppra Tab) 500 mg PO BID [facility] Last Admin: 03/05/17 22:03 Dose: 500 mg Levothyroxine Sodium (Synthroid Tab) 50 mcg PO DAILY@0700 [facility] Last Admin: 03/05/17 09:42 Dose: 50 mcg Mirtazapine (Remeron) 15 mg PO BEDTIME PRN PRN Reason: Sleep Last Admin: 03/05/17 22:02 Dose: 15 mg Ondansetron HCl (Zofran Inj) 4 mg IV Q4H PRN PRN Reason: Nausea/Vomiting Last Admin: 03/05/17 00:06 Dose: 4 mg Pravastatin Sodium (Pravachol) 20 mg PO BEDTIME [facility] Last Admin: 03/05/17 22:02 Dose: 20 mg Ropinirole HCl (Requip) 0.5 mg PO BEDTIME [facility] Last Admin: 03/05/17 22:02 Dose: 0.5 mg Sitagliptin Phosphate (Januvia) 25 mg PO DAILY [facility] Last Admin: 03/05/17 09:41 Dose: 25 mg Exam (Progress Note) - Constitutional Vitals: Period Temp Pulse Resp BP Sys/Vargas Pulse Ox Last 24 Hr 96.4 F-98.4 F 79-87 18-21 105-158/51-86 92-100 Exam: General appearance: normal weight, no acute distress. Head exam: normal inspection, atraumatic Eye exam: Pupils are equal and reactive. EOMI. There is no trauma. Neck exam: normal inspection no JVD. No carotid bruit. Trachea is in midline. Respiratory exam: clear to auscultation bilaterally posteriorly and anteriorly with good air movement. No rales, rhonchi or wheezes. Cardiovascular exam: regular rate and rhythm, she has appropriate mechanical valve sounds of her mechanical prosthetic aortic and mitral valves. No precordial lift. No bruits over the major arteries. Peripheral Pulses: 2+ throughout. GI/Abdominal exam: normal bowel sounds, soft and nontender, no abdominal bruits or pulsatile masses. Musculoskeletal/Extremities exam: normal inspection without edema or cyanosis. No deformities or trauma. Left upper extremity with AV fistula. Small amount ecchymotic bruising bilateral upper extremities. Neurological exam: alert, oriented X3. There is no gross neurologic deficits. Psychiatric exam: normal affect, normal mood. Cognitive function is grossly intact. Patient does not appear anxious or depressed. Skin exam: normal color, warm, dry, intact. No rashes or other skin lesions. Result/EKG - Labs CBC & BMP: 03/06/17 06:36 03/06/17 06:36 Lab Results: I have reviewed the past 24 hour labs Labs: Laboratory Results - last 24 hr 03/05/17 03/06/17 03/06/17 22:13 06:36 06:36 WBC 8.2 RBC 3.27 L Hgb 10.0 L Hct 31.3 L MCV 95.7 MCH 31 MCHC 31.9 L RDW 21.8 H Plt Count 186 MPV 10.2 Neut % (Auto) 62.0 Lymph % (Auto) 25.5 [place] % (Auto) 8.0 Eos % (Auto) 3.4 Baso % (Auto) 0.7 Neut # (Auto) 5.1 Lymph # (Auto) 2.1 [place] # (Auto) 0.7 Eos # (Auto) 0.3 Baso # (Auto) 0.1 Immature Gran % 0.4 Nucleated RBC % 0.0 Immature Gran # 0.03 Nucleated RBCs # 0.00 INR PT Patient/Control Mix Sodium 138 Potassium 3.7 Chloride 94 L Carbon Dioxide 33 H Anion Gap 14.7 BUN 55 H Creatinine 7.70 H GFR Calculation 5 BUN/Creatinine Ratio 7.00 Glucose 122 H POC Glucose 121 H Calculated Osmolality 290.7 Calcium 9.1 03/06/17 06:36 WBC RBC Hgb Hct MCV MCH MCHC RDW Plt Count MPV Neut % (Auto) Lymph % (Auto) [place] % (Auto) Eos % (Auto) Baso % (Auto) Neut # (Auto) Lymph # (Auto) [place] # (Auto) Eos # (Auto) Baso # (Auto) Immature Gran % Nucleated RBC % Immature Gran # Nucleated RBCs # INR 1.2 PT Patient/Control Mix 12.7 Sodium Potassium Chloride Carbon Dioxide Anion Gap BUN Creatinine GFR Calculation BUN/Creatinine Ratio Glucose POC Glucose Calculated Osmolality Calcium - EKG EKG results: interpreted by me, no acute changes IShawn Michael, MD, personally performed the services described in this documentation, ascribed by Jolynn Stephens RN in my presence, and it is both accurate and complete [id number] .
[2017-03-06] MEDS: CINACALCET 30 MG TABLET PO SCH (18:00)
[2017-03-06] MEDS: rOPINIRole 0.25 MG TABLET PO SCH (20:41)
[2017-03-06] MEDS: PRAVASTATIN 20 MG TABLET PO SCH (20:41)
[2017-03-06] MEDS: ONDANSETRON 4 MG/2 ML VIAL IV PRN (21:38)
[2017-03-06] MEDS: DESITIN 4OZ/NYSTATIN 15 GRAM MIXTURE PASTE TOP SCH (22:52)
[2017-03-07] MEDS: ONDANSETRON 4 MG/2 ML VIAL IV PRN ×3 (00:55→09:10)
[2017-03-07] MEDS ORDERED: MAGNESIUM CITRATE 300 ML BOTTLE PO ONE (06:00)
[2017-03-07] MEDS: LEVOTHYROXINE 100 MCG TABLET PO SCH (06:30)
[2017-03-07 06:45] LABS: Basophils # 0.1 10*3/uL (0.0-0.2); Eosinophils # 0.3 10*3/uL (0.0-0.87); Eosinophils % 3.7 % (0.00-10.9); Hematocrit 35.6 VOL% (35.7-47.0); Hemoglobin 11.6 GM/DL (12.0-16.0); Immature Granulocytes % 0.5 %; Immature Granulocytes Absolute 0.05 #; Lymphocytes # 2.8 10*3/uL (1.4-4.0); Lymphocytes % 29.5 % (21.3-54.2); Mean Corpuscular HGB Conc 32.6 GM/DL (32-36); Mean Corpuscular Hemoglobin 30 PG (27-34); Mean Corpuscular Volume 93.4 FL (87-102); Mean Platelet Volume 10.2 FL (9.6-12.0); Monocytes % 10.6 % (1.7-12.7); Neutrophils # 5.1 10*3/uL (1.4-7.4); Neutrophils % 54.7 % (38.7-73.9); Platelet Count 207 T/CUMM (130-400); Red Blood Count 3.81 MC/CUMM (3.8-5.5); Red Cell Distribution Width 21.4 % (9.3-17.3); White Blood Count 9.3 T/CUMM (4-12)
[2017-03-07 06:51] LABS: INR 1.1; PT Patient Result 12.1 SECS
[2017-03-07] MEDS: FLUTICASONE 50 MCG NASAL SPRAY 16 GM BOTTLE BOTH NARES SCH (10:21)
[2017-03-07] MEDS: CALCIUM ACETATE 667 MG CAPSULE PO SCH ×3 (10:21→17:21)
[2017-03-07] MEDS: AZELASTINE NASAL 137 MCG/SPRAY 30 ML BOTTLE BOTH NARES SCH ×2 (10:21→22:20)
[2017-03-07] MEDS: DESITIN 4OZ/NYSTATIN 15 GRAM MIXTURE PASTE TOP SCH ×2 (10:22→22:20)
--- NOTE | 2017-03-07 10:36 | Cardiology Progress Note ---
Angelo Crow Vanessa, RN, am scribing for, and in the presence of, Tom Escobra MD 10:36. Assessment and Plan - Time spent with patient Time spent with patient: Greater than 30 minutes (1) Chronic anticoagulation Status: Chronic Assessment and plan: Due to recent mechanical mitral valve and aortic valve replacements, patient will require anticoagulation. Currently with subtherapeutic INR of 1.1. Upper endoscopy yesterday revealed small hiatal hernia and retained gastric contents but not acute bleeding source. Small bowel capsule endoscopy held yesterday, and patient is for colonoscopy today to evaluate for bleeding AVMs. Pending results, will reintroduce anticoagulant. Current Visit: No (2) Upper GI bleed Status: Acute Assessment and plan: No melena. Reports some bright red bleeding during bowel prep for colonoscopy. H&H 11.6/35.6 today. Previous history of AVMs her EGD findings. Colonoscopy is scheduled for today. Current Visit: Yes (3) History of mitral valve replacement with mechanical valve Status: Chronic Assessment and plan: Mechanical mitral valve replacement in November 2016. Anticoagulation needs to be resumed as soon as possible. Current Visit: No (4) History of coronary artery bypass graft x 1 Status: Chronic Assessment and plan: Coronary artery bypass graft 1 with SVG to the RCA in November 2016. Current Visit: Yes (5) AVM (arteriovenous malformation) of small bowel, acquired Status: Chronic Assessment and plan: Known history. Defer management to gastroenterology. Current Visit: Yes (6) Coronary artery disease Status: Chronic Assessment and plan: Clinically, no findings for ACS. Patient has had no cardiac complaint. Current Visit: Yes (7) Hx of mechanical aortic valve replacement Status: Chronic Assessment and plan: Mechanical aortic valve replacement in November 2016. Patient will require anticoagulation. Current Visit: Yes (8) ESRD on dialysis Problem details: No acute indication for HD today. Status: Chronic Assessment and plan: Hemodialysis per nephrology recommendations. Current Visit: No (9) History of COPD Status: Chronic Assessment and plan: This appears stable at this time. Current Visit: No (10) Hypothyroidism Status: Chronic Assessment and plan: Thyroid supplement has been continued. Current Visit: Yes (11) Dyslipidemia Status: Chronic Assessment and plan: Statin has been continued. Current Visit: Yes (12) Dietary noncompliance Problem details: Dietary to provide handout of high potassium containing foods to avoid. 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 ESCOBAR SUMMARY: Ms. Betancourt is 61-year-old female with risk factors significant for hypertension, hyperlipidemia, diabetes, former tobacco use. Past medical history includes COPD, CHF, end-stage renal disease with hemodialysis, anemia with GI bleeding. Recent cardiac history includes CABG 1 and mechanical aortic and mitral valve replacement in November 2016. She required hospitalization in early January 2017 for acute blood loss anemia and supratherapeutic INR 18.8. After this improved, she was discharged home and returned approximately 4 days later with INR of 5, melena, and she was noted to have acute GI bleeding due to AV malformations in the small bowel. Patient was discharged home on February 17, and she presented to [facility] on March 02 with complaints of weakness and dizziness. Reports some mild melena. INR 1.6. Significant anemia with H&H 6.5/21.4, and this has improved after 3 units PRBC transfusion to H&H currently 10.8/34.1. Cardiology was asked to see as patient has history of mechanical valves and requires anticoagulation. February UPDATE: Ms. Betancourt is resting quietly without distress noted this morning. No anginal chest pain, dyspnea, or other. Small bowel capsule endoscopy held yesterday, and patient was prepped for colonoscopy which is scheduled for today. Patient having no abdominal pain or melena. She does report that she has noticed some brgt red bleeding with frequent loose stools overnight while completing bowel prep. Labs reviewed. H/H stable. Subtherapeutic INR 1.1 (1.2 yesterday). Systolic BP 100-120 mmHg. Current Medications Acetaminophen (Tylenol Tab) 650 mg PO Q4H PRN PRN Reason: Fever, Headache, Mild Pain Hydrocodone Bitart/Acetaminophen ([place] 5-325) 1 tablet PO Q6H PRN PRN Reason: Pain Moderate (4-7) Last Admin: 03/06/17 20:43 Dose: 1 tablet Al Hydrox/Mg Hydrox/Simethicone (Mylanta Max Strength Liquid) 30 ml PO Q6H PRN PRN Reason: Dyspepsia Amlodipine Besylate (Norvasc) 5 mg PO DAILY CAYLA Last Admin: 03/06/17 08:58 Dose: Not Given Azelastine HCl (Astelin) 1 spray BOTH NARES BID [facility] Last Admin: 03/06/17 20:41 Dose: 1 spray Budesonide/Formoterol Fumarate (Symbicort 160-4.5) 1 puff INH BID [facility] Last Admin: 03/06/17 21:00 Dose: 1 puff Calcium Acetate (Phoslo) 667 mg PO TID W/MEALS [facility] Last Admin: 03/06/17 18:00 Dose: 667 mg Carvedilol (Coreg) 6.25 mg PO BID [facility] Last Admin: 03/06/17 20:41 Dose: 6.25 mg Cinacalcet (Sensipar) 60 mg PO DAILY W/SUPPER [facility] Last Admin: 03/06/17 18:00 Dose: 60 mg Clonazepam (Klonopin) 1 mg PO TID [facility] Last Admin: 03/06/17 20:41 Dose: 1 mg Diphenhydramine HCl (Benadryl Inj) 50 mg IM Q6H PRN PRN Reason: Pruritis Fluticasone Propionate (Flonase) 1 spray BOTH NARES DAILY [facility] Last Admin: 03/06/17 08:58 Dose: Not Given Levetiracetam (Keppra Tab) 500 mg PO BID [facility] Last Admin: 03/06/17 20:41 Dose: 500 mg Levothyroxine Sodium (Synthroid Tab) 50 mcg PO DAILY@0700 [facility] Last Admin: 03/07/17 06:30 Dose: 50 mcg Mirtazapine (Remeron) 15 mg PO BEDTIME PRN PRN Reason: Sleep Last Admin: 03/05/17 22:02 Dose: 15 mg Nystatin/Zinc Oxide (Skin Protectant Mixture) 1 applic TOP BID [facility] Last Admin: 03/06/17 22:52 Dose: 1 applic Ondansetron HCl (Zofran Inj) 4 mg IV Q4H PRN PRN Reason: Nausea/Vomiting Last Admin: 03/07/17 09:10 Dose: 4 mg Pravastatin Sodium (Pravachol) 20 mg PO BEDTIME [facility] Last Admin: 03/06/17 20:41 Dose: 20 mg Ropinirole HCl (Requip) 0.5 mg PO BEDTIME [facility] Last Admin: 03/06/17 20:41 Dose: 0.5 mg Sitagliptin Phosphate (Januvia) 25 mg PO DAILY [facility] Last Admin: 03/06/17 08:58 Dose: Not Given Exam (Progress Note) - Constitutional Vitals: Period Temp Pulse Resp BP Sys/Vargas Pulse Ox Last 24 Hr 96.4 F-98.2 F 88-95 16-20 92-135/46-70 95-100 Exam: General appearance: normal weight, no acute distress. Head exam: normal inspection, atraumatic Eye exam: Pupils are equal and reactive. EOMI. There is no trauma. Neck exam: normal inspection no JVD. No carotid bruit. Trachea is in midline. Respiratory exam: clear to auscultation bilaterally posteriorly and anteriorly with good air movement. No rales, rhonchi or wheezes. Cardiovascular exam: regular rate and rhythm, she has appropriate mechanical valve sounds of her mechanical prosthetic aortic and mitral valves. No precordial lift. No bruits over the major arteries. Peripheral Pulses: 2+ throughout. GI/Abdominal exam: normal bowel sounds, soft and nontender, no abdominal bruits or pulsatile masses. Musculoskeletal/Extremities exam: normal inspection without edema or cyanosis. No deformities or trauma. Left upper extremity with AV fistula. Small amount ecchymotic bruising bilateral upper extremities. Neurological exam: alert, oriented X3. There is no gross neurologic deficits. Psychiatric exam: normal affect, normal mood. Cognitive function is grossly intact. Patient does not appear anxious or depressed. Skin exam: normal color, warm, dry, intact. No rashes or other skin lesions. Result/EKG - Labs CBC & BMP: 03/07/17 06:20 03/06/17 06:36 Lab Results: I have reviewed the past 24 hour labs Labs: Laboratory Results - last 24 hr 03/06/17 03/06/17 03/07/17 07:22 16:40 06:20 WBC 9.3 RBC 3.81 Hgb 11.6 L Hct 35.6 L MCV 93.4 MCH 30 MCHC 32.6 RDW 21.4 H Plt Count 207 MPV 10.2 Neut % (Auto) 54.7 Lymph % (Auto) 29.5 [place] % (Auto) 10.6 Eos % (Auto) 3.7 Baso % (Auto) 1.0 H Neut # (Auto) 5.1 Lymph # (Auto) 2.8 [place] # (Auto) 1.0 H Eos # (Auto) 0.3 Baso # (Auto) 0.1 Immature Gran % 0.5 Nucleated RBC % 0.0 Immature Gran # 0.05 Nucleated RBCs # 0.00 INR PT Patient/Control Mix POC Glucose 109 H 136 H 03/07/17 06:20 WBC RBC Hgb Hct MCV MCH MCHC RDW Plt Count MPV Neut % (Auto) Lymph % (Auto) [place] % (Auto) Eos % (Auto) Baso % (Auto) Neut # (Auto) Lymph # (Auto) [place] # (Auto) Eos # (Auto) Baso # (Auto) Immature Gran % Nucleated RBC % Immature Gran # Nucleated RBCs # INR 1.1 PT Patient/Control Mix 12.1 POC Glucose - EKG EKG results: interpreted by me, no acute changes IShawn Michael, MD, personally performed the services described in this documentation, ascribed by Jolynn Stephens RN in my presence, and it is both accurate and complete .
--- NOTE | 2017-03-07 12:53 | Operative Note ---
Date of procedure: 03/07/17 Pre-op diagnosis: GI bleed, anemia Procedure: Procedure: Flexible sigmoidoscopy Brief clinical abstract: Patient is a 61-year-old female with end-stage renal disease. She has had recurrent issues with anemia and GI bleeding. She was admitted this admission with anemia and blood in stool. She has required transfusion. Procedure findings: After informed consent was obtained, patient was placed in the left lateral decubitus position. Digital rectal exam was performed with no palpable abnormalities felt. Videogastroscope was inserted in the rectum and advanced to ileocolonic anastomosis near the rectosigmoid junction. I advanced beyond this approximately 40 cm above the surgical anastomosis. No mucosal abnormalities were seen. The endoscope was withdrawn back into the rectum which was examined including retroflexed view of the cardia and fundus with only small internal hemorrhoids noted. The endoscope was then removed. She appeared to tolerate the procedure well. Impression: #1 normal exam of terminal ileum and rectosigmoid colon #2 postsurgical colon Recommendations: Small bowel capsule endoscopy. Anesthesia: MAC Surgeon / Physician: Darion Luke Estimated blood loss: none Specimens: none sent Condition: stable Disposition: post procedure unit Results - Labs CBC & BMP: 03/07/17 06:20 03/06/17 06:36 Discharge Plan - Discharge Medications No Action Ropinirole HCl 2 tablet PO BEDTIME OLANZapine [Olanzapine] 2.5 mg PO BID Cinacalcet HCl [Sensipar] 60 mg PO DAILY amLODIPine [Norvasc] 5 mg PO DAILY Ranolazine [Ranexa] 1,000 mg PO BID Montelukast Tab [Singulair Tab] 10 mg PO BEDTIME Temazepam [Restoril] 15 mg PO BEDTIME Pantoprazole Tab [Protonix Tab] 40 mg PO DAILY HYDROcodone/ACETAMIN 10-325 [[place] 10-325] 10 mg PO TID Cyclobenzaprine [Flexeril] 10 mg PO TID Promethazine Tab [Phenergan Tab] 50 mg PO Q6HR Warfarin [Coumadin] 2.5 mg PO WE Carvedilol [Coreg] 6.25 mg PO BID levETIRAcetam [Levetiracetam] 500 mg PO BID clonazePAM [Clonazepam] 1 mg PO TID Warfarin [Coumadin] 5 mg PO SUMOTUTHFRSA Budesonide/Formoterol 160-4.5 [Symbicort 160-4.5] 2 puffs INH BID Pravastatin [Pravachol] 20 mg PO BEDTIME Calcium Acetate [Phoslo] 667 mg PO 5X DAILY - Follow Up or Referral - Forms/Instructions
--- NOTE | 2017-03-07 12:54 | Anesthesia Post-Op ---
Anesthesia Post OP - Post Ansesthetic Evaluation Patient seen in post op: Yes Resp: within normal limits CV: within normal limits Mental: within normal limits Temp: within normal limits Oyda-Ig-[id number]: within normal limits Nausea and Vomiting: within normal limits Pain: within normal limits
[2017-03-07] MEDS ORDERED: HEPARIN LOCK FLUSH 500 UNIT/5 ML SYRINGE IV ONE (13:18)
--- NOTE | 2017-03-07 14:32 | Hospitalist Progress Note ---
Assessment and Plan (1) GI bleed Status: Acute Assessment and plan: Patient has had a total of 3units of packed cells transfused. Patient has a history of AVM of small bowel. EGD showed small hiatal hernia and retained food in stomach-could suggest gastric motility disorder Flexible sigmoidoscopy showed normal exam of terminal ileum and rectosigmoid colon Plan Follow GI's recommendations Current Visit: No (2) Symptomatic anemia Status: Acute Assessment and plan: continue prn transfusion.Patient has a history of AVM. s/p EGD and Flex. sigm . Monitor cbc Current Visit: No (3) AVM (arteriovenous malformation) of small bowel, acquired Status: Chronic Assessment and plan: GI is following. S/p EGD and flex sigm Current Visit: Yes (4) Hx of mechanical aortic valve replacement Status: Chronic Assessment and plan: Patient has a history of mechanical heart valve placement in the aortic and pulmonary valves. She will need some anticoagulation therapy though she is bleeding.Cardiology is advising. Current Visit: Yes (5) ESRD on dialysis Problem details: No acute indication for HD today. Status: Chronic Assessment and plan: Nephrology is following. Current Visit: No Hospitalist: Subjective Interval history: 61yr old with a history of ESRD on HD, mechanical aortic and pulmonary valves who was on coumadin presents with GI bleed. Patient also has a history of AVM and s/p multiple transfusions on this admission.EGD showed small hiatal hernia and retained food in stomach-could suggest gastric motility disorder. Flexible sigmoidoscopy done today showed normal exam of terminal ileum and rectosigmoid colon. Cardiology is seeing regarding her anticoagulation therapy.She states she feels a bit tired this am Exam - Constitutional Vitals: Period Temp Pulse Resp BP Sys/Vargas Pulse Ox Last 24 Hr 96.4 F-98.2 F 85-95 16-20 92-135/46-078 95-100 General appearance: no acute distress - Head Head exam: Present: normal inspection - Respiratory Respiratory exam: Present: clear to auscultation bilaterally - Cardiovascular Cardiovascular exam: Present: regular rate and rhythm - GI/Abdominal GI/Abdominal exam: Present: normal bowel sounds - Extremities Exam Extremities exam: Present: normal inspection - Neurological Exam Neurological exam: Present: alert, normal gait Results - Labs CBC & BMP: 03/07/17 06:20 03/06/17 06:36
--- NOTE | 2017-03-07 15:16 | Nephrology Progress Note ---
Nephrology - PN: Subj Interval history: The patient is resting. She is status post colonoscopy today and is doing well. Hematocrit has been stable at 35.6. No shortness of breath or chest pain. Exam (PN)-Nephrology - Vital Signs Vital signs: Period Temp Pulse Resp BP Sys/Vargas Pulse Ox Last 24 Hr 96.4 F-98.0 F 85-95 16-20 92-135/46-078 96-100 - General Appearance General appearance: well-developed, well-nourished EENT: ATNC Neck: supple Respiratory: clear Cardiology: regular rate, regular rhythm Gastrointestinal: normoactive bowel sounds, no tenderness, no guarding Neurologic: alert and oriented x3 Musculoskeletal: no clubbing Psychiatric: mood/affect appropriate, cooperative - Lab 03/07/17 06:20 03/06/17 06:36 Most recent lab results Calcium 9.1 MG/DL (8.5-10.1) 03/06/17 06:36 Magnesium 2.0 MG/DL (1.8-2.4) 03/02/17 23:30 Assessment and Plan (1) Hx of mechanical aortic valve replacement Status: Chronic Current Visit: Yes (2) Weakness Status: Chronic Current Visit: No (3) Chronic anticoagulation Status: Chronic Current Visit: No (4) ESRD on dialysis Problem details: No acute indication for HD today. Status: Chronic Assessment and plan: Continue with scheduled hemodialysis Current Visit: No (5) Anemia Status: Acute Current Visit: No Qualifiers: Other causes of anemia: acute posthemorrhagic
[2017-03-07] MEDS: clonazePAM 0.5 MG TABLET PO SCH ×3 (15:54→22:16)
[2017-03-07] MEDS: amLODIPine 5 MG TABLET PO SCH (15:54)
[2017-03-07] MEDS: BUDESONIDE/FORMOTEROL 160-4.5 INHALER 6 GM INH SCH ×2 (15:54→22:20)
[2017-03-07] MEDS: levETIRAcetam 500 MG TABLET PO SCH ×2 (15:54→22:16)
[2017-03-07] MEDS: sitaGLIPtin 25 MG TABLET PO SCH (15:54)
[2017-03-07] MEDS: CARVEDILOL 6.25 MG TABLET PO SCH ×2 (15:54→22:23)
[2017-03-07] MEDS: ACETAMINOPHEN 325 MG TABLET PO PRN (17:20)
[2017-03-07] MEDS: CINACALCET 30 MG TABLET PO SCH (17:21)
[2017-03-07] MEDS ORDERED: WARFARIN 2.5 MG TABLET PO SCH (18:00)
[2017-03-07] MEDS: PRAVASTATIN 20 MG TABLET PO SCH (22:16)
[2017-03-07] MEDS: rOPINIRole 0.25 MG TABLET PO SCH (22:16)
[2017-03-07] MEDS: MIRTAZAPINE 15 MG TABLET PO PRN (22:17)
[2017-03-08 06:24] LABS: Basophils # 0.1 10*3/uL (0.0-0.2); Basophils % 0.8 % (0.0-0.8); Eosinophils # 0.3 10*3/uL (0.0-0.87); Eosinophils % 3.3 % (0.00-10.9); Hematocrit 35.1 VOL% (35.7-47.0); Hemoglobin 11.6 GM/DL (12.0-16.0); Immature Granulocytes % 0.6 %; Immature Granulocytes Absolute 0.06 #; Lymphocytes # 2.7 10*3/uL (1.4-4.0); Lymphocytes % 27.2 % (21.3-54.2); Mean Corpuscular Hemoglobin 30 PG (27-34); Mean Corpuscular Volume 91.2 FL (87-102); Mean Platelet Volume 9.8 FL (9.6-12.0); Monocytes # 0.9 10*3/uL (0.11-0.8); Monocytes % 9.1 % (1.7-12.7); Neutrophils # 5.8 10*3/uL (1.4-7.4); Platelet Count 208 T/CUMM (130-400); Red Blood Count 3.85 MC/CUMM (3.8-5.5); Red Cell Distribution Width 20.3 % (9.3-17.3); White Blood Count 9.8 T/CUMM (4-12)
[2017-03-08 06:59] LABS: Osmolality,Calculated 271.8 MOS/KG (273-304); Potassium 4.1 MMOL/L (3.5-5.1)
[2017-03-08] MEDS: LEVOTHYROXINE 100 MCG TABLET PO SCH ×2 (07:19→08:53)
--- NOTE | 2017-03-08 08:35 | Gastrointestinal Progress Note ---
Assessment and Plan (1) Symptomatic anemia Status: Acute Assessment and plan: 03/08-C scope findings noted. SMall bowel camera endoscopy today. Rehcheck HH. Plan and addendum to follow by DR Luke. 03/06-hemoglobin holding at 10. EGD findings noted. Plan for colonoscopy on tomorrow. Plan addendum follow Dr. Luke. 03/05-History of small bowel AVMs, presenting with anemia. No overt bleeding overnight. Hgb stable at 10.8. Small bowel camera scheduled for today however will be postponed to tomorrow due to scheduling conflicts. Total of 3 units PRBC this hospitalization. EGD last month with findings of small hiatal hernia. Continue diet, for dialysis today, monitor HH. Reschedule for SBC tomorrow. Check stool for occult blood. Plan and addendum to follow by Dr luke. Current Visit: No Gastroenterology - PN: Subj Interval history: CC: Gi bleed, anemia Pt is seen awake and alert sitting up in bed. Had an uneventful night. She denies any overt bleeding at this time. She had small bowel camera endoscopy initiated today. Hemoglobin has remained stable however no labs rechecked today. Tolerating diet well at this time. Denies any abdominal pain, nausea or vomiting. C-scope findings with no abnormal findings. ROS: Denies SOB or chest pain Exam (Progress Note) - Constitutional Vitals: Period Temp Pulse Resp BP Sys/Vargas Pulse Ox Last 24 Hr 96.9 F-98.1 F 85-94 17-22 91-130/52-078 95-100 - Other Additional findings: General appearance: normal weight, no acute distress - Head Head exam: Present: normal inspection, normocephalic - Eye Eye exam: Present: other (Lids and conjunctive are unremarkable). Absent: scleral icterus - ENT ENT exam: Present: normal exam, normal oropharynx - Neck Neck exam: Present: normal inspection - Respiratory Respiratory exam: Present: clear to auscultation bilaterally. Absent: rales, rhonchi, wheezes - Cardiovascular Cardiovascular exam: Present: regular rate and rhythm. Absent: diastolic murmur , JVD, systolic murmur - GI/Abdominal GI/Abdominal exam: Present: normal bowel sounds, soft. Absent: ascites, distended, mass, organomegaly, tenderness - Extremities Exam Extremities exam: Present: normal inspection, full ROM - Back Exam Back exam: Present: normal inspection - Neurological Exam Neurological exam: Present: alert, oriented X3 - Psychiatric Psychiatric exam: Present: normal affect, normal mood - Skin Skin exam: Present: normal color, warm, dry Results - Labs CBC & BMP: 03/08/17 06:11 03/08/17 06:11 Lab Results: I have reviewed the past 24 hour labs
[2017-03-08] MEDS: CARVEDILOL 6.25 MG TABLET PO SCH ×2 (08:52→22:00)
[2017-03-08] MEDS: sitaGLIPtin 25 MG TABLET PO SCH (08:52)
[2017-03-08] MEDS: clonazePAM 0.5 MG TABLET PO SCH ×3 (08:53→21:59)
[2017-03-08] MEDS: levETIRAcetam 500 MG TABLET PO SCH ×2 (08:53→22:00)
[2017-03-08] MEDS: CALCIUM ACETATE 667 MG CAPSULE PO SCH ×3 (08:53→18:34)
[2017-03-08] MEDS: DESITIN 4OZ/NYSTATIN 15 GRAM MIXTURE PASTE TOP SCH ×2 (09:43→22:00)
[2017-03-08] MEDS: amLODIPine 5 MG TABLET PO SCH (09:43)
[2017-03-08] MEDS: FLUTICASONE 50 MCG NASAL SPRAY 16 GM BOTTLE BOTH NARES SCH (09:43)
[2017-03-08] MEDS: AZELASTINE NASAL 137 MCG/SPRAY 30 ML BOTTLE BOTH NARES SCH ×2 (09:43→22:00)
[2017-03-08] MEDS: BUDESONIDE/FORMOTEROL 160-4.5 INHALER 6 GM INH SCH ×2 (09:43→22:00)
--- NOTE | 2017-03-08 13:14 | Cardiology Progress Note ---
Angelo Crow Vanessa, RN, am scribing for, and in the presence of, Tom Escobar MD 13:14. Assessment and Plan - Time spent with patient Time spent with patient: Greater than 30 minutes (1) Chronic anticoagulation Status: Chronic Assessment and plan: Due to recent mechanical mitral valve and aortic valve replacements, patient will require anticoagulation. Subtherapeutic INR yesterday of 1.1. EGD and colonoscopy have only revealed small hiatal hernia and small internal hemorrhoids respectively. Coumadin was restarted yesterday. INR tomorrow. Current Visit: No (2) Upper GI bleed Status: Acute Assessment and plan: Denies further bleeding today, and she has not had any melena. H&H remains essentially unchanged. EGD and flex sigmoid unrevealing for source of anemia. Small bowel capsule endoscopy today. Current Visit: Yes (3) History of mitral valve replacement with mechanical valve Status: Chronic Assessment and plan: Mechanical mitral valve replacement in November 2016. Anticoagulation needs to be resumed as soon as possible. Current Visit: No (4) History of coronary artery bypass graft x 1 Status: Chronic Assessment and plan: Coronary artery bypass graft 1 with SVG to the RCA in November 2016. Current Visit: Yes (5) AVM (arteriovenous malformation) of small bowel, acquired Status: Chronic Assessment and plan: Known history. Defer management to gastroenterology. Current Visit: Yes (6) Coronary artery disease Status: Chronic Assessment and plan: Clinically, no findings for ACS. Patient has had no cardiac complaint. Current Visit: Yes (7) Hx of mechanical aortic valve replacement Status: Chronic Assessment and plan: Mechanical aortic valve replacement in November 2016. Patient will require anticoagulation. Current Visit: Yes (8) ESRD on dialysis Problem details: No acute indication for HD today. Status: Chronic Assessment and plan: Hemodialysis per nephrology recommendations. Current Visit: No (9) History of COPD Status: Chronic Assessment and plan: This appears stable at this time. Current Visit: No (10) Hypothyroidism Status: Chronic Assessment and plan: Thyroid supplement has been continued. Current Visit: Yes (11) Dyslipidemia Status: Chronic Assessment and plan: Statin has been continued. Current Visit: Yes (12) Dietary noncompliance Problem details: Dietary to provide handout of high potassium containing foods to avoid. Status: Chronic Current Visit: No Cardiology - PN: Subj Interval history: PRIMARY VENEER JOINER: DR. ESCOBAR SUMMARY: Ms. Betancourt is 61-year-old female with risk factors significant for hypertension, hyperlipidemia, diabetes, former tobacco use. Past medical history includes COPD, CHF, end-stage renal disease with hemodialysis, anemia with GI bleeding. Recent cardiac history includes CABG 1 and mechanical aortic and mitral valve replacement in November 2016. She required hospitalization in early January 2017 for acute blood loss anemia and supratherapeutic INR 18.8. After this improved, she was discharged home and returned approximately 4 days later with INR of 5, melena, and she was noted to have acute GI bleeding due to AV malformations in the small bowel. Patient was discharged home on February 17, and [facility] with complaints of weakness and dizziness. Reports some mild melena. INR 1.6. Significant anemia with H&H 6.5/21.4, and this has improved after 3 units PRBC transfusion to H&H currently 10.8/34.1. Cardiology was asked to see as patient has history of mechanical valves and requires anticoagulation. February UPDATE: Ms. Betancourt underwent flex sigmoidoscopy yesterday with normal exam of the ileum and colon. There were no abnormalities or bleeding seen. There were some small internal hemorrhoids noted. Coumadin was restarted yesterday at previous dosage listed on home medication list. Patient is for small bowel capsule endoscopy today. H&H unchanged and today 11.6/35.1. Patient is awake and alert. She is not having any chest pain shortness of breath. She is not having any abdominal pain or seen any bleeding. Electrolytes are within acceptable range. Systolic BP 90-100 mmHg. Current Medications Acetaminophen (Tylenol Tab) 650 mg PO Q4H PRN PRN Reason: Fever, Headache, Mild Pain Last Admin: 03/07/17 17:20 Dose: 650 mg Hydrocodone Bitart/Acetaminophen (Totz 5-325) 1 tablet PO Q6H PRN PRN Reason: Pain Moderate (4-7) Last Admin: 03/08/17 02:45 Dose: 1 tablet Al Hydrox/Mg Hydrox/Simethicone (Mylanta Max Strength Liquid) 30 ml PO Q6H PRN PRN Reason: Dyspepsia Amlodipine Besylate (Norvasc) 5 mg PO DAILY CAYLA Last Admin: 03/08/17 09:43 Dose: Not Given Azelastine HCl (Astelin) 1 spray BOTH NARES BID [facility] Last Admin: 03/08/17 09:43 Dose: Not Given Budesonide/Formoterol Fumarate (Symbicort 160-4.5) 1 puff INH BID [facility] Last Admin: 03/08/17 09:43 Dose: Not Given Calcium Acetate (Phoslo) 667 mg PO TID W/MEALS [facility] Last Admin: 03/08/17 08:53 Dose: 667 mg Carvedilol (Coreg) 6.25 mg PO BID [facility] Last Admin: 03/08/17 08:52 Dose: 6.25 mg Cinacalcet (Sensipar) 60 mg PO DAILY W/SUPPER [facility] Last Admin: 03/07/17 17:21 Dose: 60 mg Clonazepam (Klonopin) 1 mg PO TID [facility] Last Admin: 03/08/17 08:53 Dose: 1 mg Diphenhydramine HCl (Benadryl Inj) 50 mg IM Q6H PRN PRN Reason: Pruritis Fluticasone Propionate (Flonase) 1 spray BOTH NARES DAILY [facility] Last Admin: 03/08/17 09:43 Dose: Not Given Levetiracetam (Keppra Tab) 500 mg PO BID [facility] Last Admin: 03/08/17 08:53 Dose: 500 mg Levothyroxine Sodium (Synthroid Tab) 50 mcg PO DAILY@0700 [facility] Last Admin: 03/08/17 08:53 Dose: 50 mcg Mirtazapine (Remeron) 15 mg PO BEDTIME PRN PRN Reason: Sleep Last Admin: 03/07/17 22:17 Dose: 15 mg Nystatin/Zinc Oxide (Skin Protectant Mixture) 1 applic TOP BID [facility] Last Admin: 03/08/17 09:43 Dose: Not Given Ondansetron HCl (Zofran Inj) 4 mg IV Q4H PRN PRN Reason: Nausea/Vomiting Last Admin: 03/07/17 09:10 Dose: 4 mg Pravastatin Sodium (Pravachol) 20 mg PO BEDTIME [facility] Last Admin: 03/07/17 22:16 Dose: 20 mg Ropinirole HCl (Requip) 0.5 mg PO BEDTIME [facility] Last Admin: 03/07/17 22:16 Dose: 0.5 mg Sitagliptin Phosphate (Januvia) 25 mg PO DAILY [facility] Last Admin: 03/08/17 08:52 Dose: 25 mg Warfarin Sodium (Coumadin) 2.5 mg PO We@1800 [facility] Last Admin: 03/07/17 17:21 Dose: 2.5 mg Warfarin Sodium (Coumadin) 5 mg PO [email or web address]@1800 [facility] Exam (Progress Note) - Constitutional Vitals: Period Temp Pulse Resp BP Sys/Vargas Pulse Ox Last 24 Hr 96.9 F-98.1 F 85-94 17-22 91-130/52-078 95-100 Exam: General appearance: normal weight, no acute distress. Head exam: normal inspection, atraumatic Eye exam: Pupils are equal and reactive. EOMI. There is no trauma. Neck exam: normal inspection no JVD. No carotid bruit. Trachea is in midline. Respiratory exam: clear to auscultation bilaterally. No rales, rhonchi or wheezes. Cardiovascular exam: regular rate and rhythm, she has appropriate mechanical valve sounds of her mechanical prosthetic aortic and mitral valves. No bruits over the major arteries. Peripheral Pulses: 2+ throughout. GI/Abdominal exam: normal bowel sounds, soft and nontender, no abdominal bruits or pulsatile masses. Musculoskeletal/Extremities exam: normal inspection without edema or cyanosis. No deformities or trauma. Left upper extremity with AV fistula. Small amount ecchymotic bruise bilateral upper extremity improving. Neurological exam: alert, oriented X3. There is no gross neurologic deficits. Psychiatric exam: normal affect, normal mood. Cognitive function is grossly intact. Patient does not appear anxious or depressed. Skin exam: normal color, warm, dry. No rashes or other skin lesions. Result/EKG - Labs CBC & BMP: 03/08/17 06:11 03/08/17 06:11 Lab Results: I have reviewed the past 24 hour labs Labs: Laboratory Results - last 24 hr 03/07/17 03/07/17 03/07/17 10:45 16:40 21:58 WBC RBC Hgb Hct MCV MCH MCHC RDW Plt Count MPV Neut % (Auto) Lymph % (Auto) [place] % (Auto) Eos % (Auto) Baso % (Auto) Neut # (Auto) Lymph # (Auto) [place] # (Auto) Eos # (Auto) Baso # (Auto) Immature Gran % Nucleated RBC % Immature Gran # Nucleated RBCs # Sodium Potassium Chloride Carbon Dioxide Anion Gap BUN Creatinine GFR Calculation BUN/Creatinine Ratio Glucose POC Glucose 99 142 H 120 H Calculated Osmolality Calcium 03/08/17 03/08/17 03/08/17 06:11 06:11 07:39 WBC 9.8 RBC 3.85 Hgb 11.6 L Hct 35.1 L MCV 91.2 MCH 30 MCHC 33.0 RDW 20.3 H Plt Count 208 MPV 9.8 Neut % (Auto) 59.0 Lymph % (Auto) 27.2 [place] % (Auto) 9.1 Eos % (Auto) 3.3 Baso % (Auto) 0.8 Neut # (Auto) 5.8 Lymph # (Auto) 2.7 [place] # (Auto) 0.9 H Eos # (Auto) 0.3 Baso # (Auto) 0.1 Immature Gran % 0.6 Nucleated RBC % 0.0 Immature Gran # 0.06 Nucleated RBCs # 0.00 Sodium 130 L Potassium 4.1 Chloride 86 L Carbon Dioxide 27 Anion Gap 21.1 H BUN 46 H Creatinine 6.70 H GFR Calculation 6 BUN/Creatinine Ratio 6.00 Glucose 101 POC Glucose 96 Calculated Osmolality 271.8 L Calcium 10.0 - EKG EKG results: interpreted by me, no acute changes I, Tom Escobar MD, personally performed the services described in this documentation, ascribed by Jolynn Stephens RN in my presence, and it is both accurate and complete 314 .
--- NOTE | 2017-03-08 15:37 | Dialysis Note ---
Dialysis Note - Dialysis Note Patient seen on dialysis. Tolerating the procedure. Blood pressure is 92/52.
[2017-03-08] MEDS: WARFARIN 5 MG TABLET PO SCH (18:34)
[2017-03-08] MEDS: CINACALCET 30 MG TABLET PO SCH (18:34)
--- NOTE | 2017-03-08 18:46 | Hospitalist Progress Note ---
Assessment and Plan (1) GI bleed Status: Acute Current Visit: No (2) Symptomatic anemia Status: Acute Current Visit: No (3) Hx of mechanical aortic valve replacement Status: Chronic Current Visit: Yes (4) ESRD on dialysis Problem details: No acute indication for HD today. Status: Chronic Current Visit: No Hospitalist: Subjective Interval history: No acute events overnight. She reports that she slept well last night. Coumadin has been restarted. HD today. Exam - Constitutional Vitals: Period Temp Pulse Resp BP Sys/Vargas Pulse Ox Last 24 Hr 97.1 F-98.4 F 87-94 16-22 91-96/51-59 95-98 General appearance: over weight - Head Head exam: Present: normocephalic, atraumatic - Eye Eye exam: Present: EOMI Pupils: Present: NONI - ENT ENT exam: Present: normal exam - Neck Neck exam: Present: normal inspection - Respiratory Respiratory exam: Present: clear to auscultation bilaterally. Absent: wheezes - Cardiovascular Cardiovascular exam: Present: regular rate and rhythm - GI/Abdominal GI/Abdominal exam: Present: normal bowel sounds, soft. Absent: tenderness, rebound - Extremities Exam Extremities exam: Present: normal inspection - Back Exam Back exam: Present: normal inspection - Neurological Exam Neurological exam: Present: alert, oriented X3 - Psychiatric Psychiatric exam: Present: normal affect, normal mood - Skin Skin exam: Present: warm, intact Results - Labs CBC & BMP: 03/08/17 06:11 03/08/17 06:11
[2017-03-08] MEDS: MIRTAZAPINE 15 MG TABLET PO PRN (21:59)
[2017-03-08] MEDS: rOPINIRole 0.25 MG TABLET PO SCH (22:00)
[2017-03-08] MEDS: PRAVASTATIN 20 MG TABLET PO SCH (22:00)
[2017-03-09] MEDS: PANTOPRAZOLE 40 MG TABLET PO SCH ×2 (00:18→08:58)
[2017-03-09 05:35] LABS: Basophils # 0.1 10*3/uL (0.0-0.2); Basophils % 0.9 % (0.0-0.8); Eosinophils # 0.2 10*3/uL (0.0-0.87); Eosinophils % 2.6 % (0.00-10.9); Hematocrit 34.8 VOL% (35.7-47.0); Hemoglobin 11.4 GM/DL (12.0-16.0); Immature Granulocytes % 0.8 %; Immature Granulocytes Absolute 0.07 #; Lymphocytes # 2.5 10*3/uL (1.4-4.0); Lymphocytes % 27.4 % (21.3-54.2); Mean Corpuscular HGB Conc 32.8 GM/DL (32-36); Mean Corpuscular Hemoglobin 31 PG (27-34); Mean Platelet Volume 10.6 FL (9.6-12.0); Monocytes % 10.9 % (1.7-12.7); Neutrophils # 5.2 10*3/uL (1.4-7.4); Neutrophils % 57.4 % (38.7-73.9); Platelet Count 217 T/CUMM (130-400); Red Blood Count 3.74 MC/CUMM (3.8-5.5); Red Cell Distribution Width 20.3 % (9.3-17.3)
[2017-03-09 05:37] LABS: INR 1.1
[2017-03-09 06:03] LABS: Calcium 10.4 MG/DL (8.5-10.1); Magnesium 2.5 MG/DL (1.8-2.4); Osmolality,Calculated 282.7 MOS/KG (273-304); Potassium 3.7 MMOL/L (3.5-5.1)
[2017-03-09] MEDS: LEVOTHYROXINE 100 MCG TABLET PO SCH (06:07)
[2017-03-09] MEDS: ONDANSETRON 4 MG/2 ML VIAL IV PRN ×3 (06:24→20:36)
--- NOTE | 2017-03-09 08:38 | Gastrointestinal Progress Note ---
Assessment and Plan (1) Symptomatic anemia Status: Acute Assessment and plan: 03/09-small bowel camera endoscopy report pending. Hemoglobin stable 11.4. Plan an addendum to follow Dr. Luke. 03/08-C scope findings noted. SMall bowel camera endoscopy today. Rehcheck HH. Plan and addendum to follow by DR Luke. 03/06-hemoglobin holding at 10. EGD findings noted. Plan for colonoscopy on tomorrow. Plan addendum follow Dr. Luke. 03/05-History of small bowel AVMs, presenting with anemia. No overt bleeding overnight. Hgb stable at 10.8. Small bowel camera scheduled for today however will be postponed to tomorrow due to scheduling conflicts. Total of 3 units PRBC this hospitalization. EGD last month with findings of small hiatal hernia. Continue diet, for dialysis today, monitor HH. Reschedule for SBC tomorrow. Check stool for occult blood. Plan and addendum to follow by Dr luke. Current Visit: No Gastroenterology - PN: Subj Interval history: CC: Anemia Patient is seen asleep in the bed, awakens easily to verbal stimuli. States she is not feeling well this morning and complains of some abdominal cramping and nausea overnight. She states that she felt like it was when she ate for supper that was little too much for her stomach. Denies any vomiting but did have some regurgitation. States she feels this is possibly reflux related. Small bowel camera endoscopy done on yesterday with report pending at this time. Hemoglobin is holding stable 11.4. Abdomen is soft, nontender. No overt bleeding reported. ROS: Denies shortness of breath or chest pain Exam (Progress Note) - Constitutional Vitals: Period Temp Pulse Resp BP Sys/Vargas Pulse Ox Last 24 Hr 97.5 F-98.4 F 75-98 16-20 92-130/47-76 95-99 - Other Additional findings: General appearance: normal weight, no acute distress - Head Head exam: Present: normal inspection, normocephalic - Eye Eye exam: Present: other (Lids and conjunctive are unremarkable). Absent: scleral icterus - ENT ENT exam: Present: normal exam, normal oropharynx - Neck Neck exam: Present: normal inspection - Respiratory Respiratory exam: Present: clear to auscultation bilaterally. Absent: rales, rhonchi, wheezes - Cardiovascular Cardiovascular exam: Present: regular rate and rhythm. Absent: diastolic murmur , JVD, systolic murmur - GI/Abdominal GI/Abdominal exam: Present: normal bowel sounds, soft. Absent: ascites, distended, mass, organomegaly, tenderness - Extremities Exam Extremities exam: Present: normal inspection, full ROM - Back Exam Back exam: Present: normal inspection - Neurological Exam Neurological exam: Present: alert, oriented X3 - Psychiatric Psychiatric exam: Present: normal affect, normal mood - Skin Skin exam: Present: normal color, warm, dry Results - Labs CBC & BMP: 03/09/17 04:14 03/09/17 04:14 Lab Results: I have reviewed the past 24 hour labs
[2017-03-09] MEDS: CARVEDILOL 6.25 MG TABLET PO SCH ×2 (08:57→20:37)
[2017-03-09] MEDS: CALCIUM ACETATE 667 MG CAPSULE PO SCH ×4 (08:57→17:54)
[2017-03-09] MEDS: amLODIPine 5 MG TABLET PO SCH (08:58)
[2017-03-09] MEDS: sitaGLIPtin 25 MG TABLET PO SCH (08:58)
[2017-03-09] MEDS: levETIRAcetam 500 MG TABLET PO SCH ×2 (08:58→20:37)
[2017-03-09] MEDS: clonazePAM 0.5 MG TABLET PO SCH ×3 (08:58→20:37)
[2017-03-09] MEDS: FLUTICASONE 50 MCG NASAL SPRAY 16 GM BOTTLE BOTH NARES SCH (09:01)
[2017-03-09] MEDS: AZELASTINE NASAL 137 MCG/SPRAY 30 ML BOTTLE BOTH NARES SCH ×2 (09:01→20:38)
[2017-03-09] MEDS: BUDESONIDE/FORMOTEROL 160-4.5 INHALER 6 GM INH SCH ×2 (09:01→20:38)
[2017-03-09] MEDS: DESITIN 4OZ/NYSTATIN 15 GRAM MIXTURE PASTE TOP SCH ×2 (09:01→20:37)
[2017-03-09] MEDS ORDERED: TUBERCULIN SKIN TEST 0.1 ML SYRINGE INTRADERM ONE (09:20)
--- NOTE | 2017-03-09 09:20 | Nephrology Progress Note ---
Nephrology - PN: Subj Interval history: Patient is resting comfortably did have some stomach upset last night. She has been hemodynamically stable. No fevers or chills. Exam (PN)-Nephrology - Vital Signs Vital signs: Period Temp Pulse Resp BP Sys/Vargas Pulse Ox Last 24 Hr 97.5 F-98.4 F 75-98 16-20 92-130/47-76 95-99 - General Appearance General appearance: well-developed, well-nourished EENT: ATNC Neck: supple Respiratory: clear Cardiology: regular rate, regular rhythm Gastrointestinal: normoactive bowel sounds Neurologic: alert and oriented x3 Musculoskeletal: no clubbing Psychiatric: mood/affect appropriate - Lab 03/09/17 04:14 03/09/17 04:14 Most recent lab results Calcium 10.4 MG/DL (8.5-10.1) H 03/09/17 04:14 Magnesium 2.5 MG/DL (1.8-2.4) H 03/09/17 04:14 Assessment and Plan (1) Hx of mechanical aortic valve replacement Status: Chronic Current Visit: Yes (2) Weakness Status: Chronic Current Visit: No (3) Chronic anticoagulation Status: Chronic Current Visit: No (4) ESRD on dialysis Problem details: No acute indication for HD today. Status: Chronic Assessment and plan: Continue with scheduled hemodialysis Current Visit: No (5) Anemia Status: Acute Current Visit: No Qualifiers: Other causes of anemia: acute posthemorrhagic
--- NOTE | 2017-03-09 10:09 | Case Mgmt Physician Query Form ---
TB Signs and Symptoms Screening ([place]) INSTRUCTIONS: To be completed annually on residents/staff with a significant Tuberculin Skin Test (TST) upon admission/hire or a prior significant TST. To be completed on all staff at hire. Please respond to each listed symptom with an (X) in either the "YES" or "NO" box. Do you currently have any of the following symptoms: YES NO ( ) (x ) A cough If yes, is it: ( ) Productive ( ) Non- productive ( ) (x ) Hemoptysis (spitting up blood) ( ) (x ) Chest pains ( ) (x ) Weight Loss ( ) (x ) Fever ( ) (x ) Night Sweats ( ) (x ) Weakness ( ) (x ) Loss of Appetite ( ) (x ) Difficulty Breathing If you answered YES" to any of the above questions, how long have symptoms been present? Comments: If you have any questions, please contact me . Thank you, Charla QUEEN Email: [email or web address] [facility]
--- NOTE | 2017-03-09 13:26 | Cardiology Progress Note ---
Angelo Crow Vanessa RN, am scribing for, and in the presence of, Tom Escobar MD 13:26. Assessment and Plan - Time spent with patient Time spent with patient: Greater than 30 minutes (1) Chronic anticoagulation Status: Chronic Assessment and plan: Due to recent mechanical mitral valve and aortic valve replacements, patient will require anticoagulation. EGD and colonoscopy revealed small hiatal hernia and small internal hemorrhoids respectively. Coumadin was restarted on March 07. INR today 1.1. Repeat INR tomorrow. Current Visit: No (2) Upper GI bleed Status: Acute Assessment and plan: Denies further bleeding today, and she has not had any melena. H&H remains essentially unchanged. EGD and flex sigmoid unrevealing for source of anemia. Small bowel capsule endoscopy results are pending. Current Visit: Yes (3) History of mitral valve replacement with mechanical valve Status: Chronic Assessment and plan: Mechanical mitral valve replacement in November 2016. Coumadin is now resumed. Will monitor INR and for bleeding closely. Current Visit: No (4) History of coronary artery bypass graft x 1 Status: Chronic Assessment and plan: Coronary artery bypass graft 1 with SVG to the RCA in November 2016. Current Visit: Yes (5) AVM (arteriovenous malformation) of small bowel, acquired Status: Chronic Assessment and plan: Known history. Defer management to gastroenterology. Current Visit: Yes (6) Coronary artery disease Status: Chronic Assessment and plan: Clinically, no findings for ACS. Patient remains without cardiac complaint. Current Visit: Yes (7) Hx of mechanical aortic valve replacement Status: Chronic Assessment and plan: Mechanical aortic valve replacement in November 2016. Coumadin is now resumed. Current Visit: Yes (8) ESRD on dialysis Problem details: No acute indication for HD today. Status: Chronic Assessment and plan: Hemodialysis per nephrology recommendations. Current Visit: No (9) History of COPD Status: Chronic Assessment and plan: This appears stable at this time. Current Visit: No (10) Hypothyroidism Status: Chronic Assessment and plan: Thyroid supplement has been continued. Current Visit: Yes (11) Dyslipidemia Status: Chronic Assessment and plan: Statin has been continued. Current Visit: Yes (12) Dietary noncompliance Problem details: Dietary to provide handout of high potassium containing foods to avoid. Status: Chronic Current Visit: No Cardiology - PN: Subj Interval history: PRIMARY AERIAL SPRAYER: DR. ESCOBAR SUMMARY: Ms. Betancourt is 61-year-old female with risk factors significant for hypertension, hyperlipidemia, diabetes, former tobacco use. Past medical history includes COPD, CHF, end-stage renal disease with hemodialysis, anemia with GI bleeding. Recent cardiac history includes CABG 1 and mechanical aortic and mitral valve replacement in November 2016. She required hospitalization in early January 2017 for acute blood loss anemia and supratherapeutic INR 18.8. After this improved, she was discharged home and returned approximately 4 days later with INR of 5, melena, and she was noted to have acute GI bleeding due to AV malformations in the small bowel. Patient was discharged home on February 17, and she presented to [facility] ER on March 02 with complaints of weakness and dizziness. Reports some mild melena. INR 1.6. Significant anemia with H&H 6.5/21.4, and this has improved after 3 units PRBC transfusion with improvement of H&H. Cardiology was asked to see as patient has history of mechanical valves and requires anticoagulation. Coumadin therapy restarted the evening of March 07. February UPDATE: Ms. Betancourt is sleeping quietly this morning. Rouses easily, and she reports she does not feel well this morning. Patient states she has had frequent nausea and dry heaves overnight with no vomiting. Denies further bleeding or melena. She is not having any abdominal pain or discomfort. No chest pain or shortness of breath. Afebrile, vitals stable with systolic pressure ranging 100-130 mmHg. Patient tolerated routine hemodialysis yesterday without difficulty. Coumadin therapy restarted on the evening of March 07, and INR is morning is 1.1. H&H remains essentially unchanged and is 11.4/34.8 today. Potassium 3.7 and magnesium 2.5. Current Medications Acetaminophen (Tylenol Tab) 650 mg PO Q4H PRN PRN Reason: Fever, Headache, Mild Pain Last Admin: 03/07/17 17:20 Dose: 650 mg Hydrocodone Bitart/Acetaminophen ([place] 5-325) 1 tablet PO Q6H PRN PRN Reason: Pain Moderate (4-7) Last Admin: 03/08/17 21:59 Dose: 1 tablet Al Hydrox/Mg Hydrox/Simethicone (Mylanta Max Strength Liquid) 30 ml PO Q6H PRN PRN Reason: Dyspepsia Last Admin: 03/08/17 23:15 Dose: 30 ml Amlodipine Besylate (Norvasc) 5 mg PO DAILY [facility] Last Admin: 03/08/17 09:43 Dose: Not Given Azelastine HCl (Astelin) 1 spray BOTH NARES BID [facility] Last Admin: 03/08/17 22:00 Dose: 1 spray Budesonide/Formoterol Fumarate (Symbicort 160-4.5) 1 puff INH BID [facility] Last Admin: 03/08/17 22:00 Dose: 1 puff Calcium Acetate (Phoslo) 667 mg PO TID W/MEALS [facility] Last Admin: 03/08/17 18:34 Dose: 667 mg Carvedilol (Coreg) 6.25 mg PO BID [facility] Last Admin: 03/08/17 22:00 Dose: 6.25 mg Cinacalcet (Sensipar) 60 mg PO DAILY W/SUPPER [facility] Last Admin: 03/08/17 18:34 Dose: 60 mg Clonazepam (Klonopin) 1 mg PO TID [facility] Last Admin: 03/08/17 21:59 Dose: 1 mg Diphenhydramine HCl (Benadryl Inj) 50 mg IM Q6H PRN PRN Reason: Pruritis Fluticasone Propionate (Flonase) 1 spray BOTH NARES DAILY [facility] Last Admin: 03/08/17 09:43 Dose: Not Given Levetiracetam (Keppra Tab) 500 mg PO BID [facility] Last Admin: 03/08/17 22:00 Dose: 500 mg Levothyroxine Sodium (Synthroid Tab) 50 mcg PO DAILY@0700 [facility] Last Admin: 03/09/17 06:07 Dose: 50 mcg Mirtazapine (Remeron) 15 mg PO BEDTIME PRN PRN Reason: Sleep Last Admin: 03/08/17 21:59 Dose: 15 mg Nystatin/Zinc Oxide (Skin Protectant Mixture) 1 applic TOP BID [facility] Last Admin: 03/08/17 22:00 Dose: 1 applic Ondansetron HCl (Zofran Inj) 4 mg IV Q4H PRN PRN Reason: Nausea/Vomiting Last Admin: 03/09/17 06:24 Dose: 4 mg Pantoprazole Sodium (Protonix Tab) 40 mg PO DAILY [facility] Last Admin: 03/09/17 00:18 Dose: 40 mg Pravastatin Sodium (Pravachol) 20 mg PO BEDTIME [facility] Last Admin: 03/08/17 22:00 Dose: 20 mg Ropinirole HCl (Requip) 0.5 mg PO BEDTIME [facility] Last Admin: 03/08/17 22:00 Dose: 0.5 mg Sitagliptin Phosphate (Januvia) 25 mg PO DAILY [facility] Last Admin: 03/08/17 08:52 Dose: 25 mg Warfarin Sodium (Coumadin) 2.5 mg PO We@1800 [facility] Last Admin: 03/07/17 17:21 Dose: 2.5 mg Warfarin Sodium (Coumadin) 5 mg PO SuMoTuThFrSa@1800 [facility] Last Admin: 03/08/17 18:34 Dose: 5 mg Exam (Progress Note) - Constitutional Vitals: Period Temp Pulse Resp BP Sys/Vargas Pulse Ox Last 24 Hr 97.5 F-98.4 F 75-98 16-20 92-130/47-76 95-99 Exam: General appearance: normal weight, no acute distress. Head exam: normal inspection, atraumatic Eye exam: Pupils are equal and reactive. EOMI. There is no trauma. Neck exam: normal inspection no JVD. No carotid bruit. Trachea is in midline. Respiratory exam: clear to auscultation bilaterally. No rales, rhonchi or wheezes. Cardiovascular exam: regular rate and rhythm, she has appropriate mechanical valve sounds of her mechanical prosthetic aortic and mitral valves. No bruits over the major arteries. Peripheral Pulses: 2+ throughout. GI/Abdominal exam: normal bowel sounds, soft and nontender, no abdominal bruits or pulsatile masses. Musculoskeletal/Extremities exam: normal inspection without edema or cyanosis. No deformities or trauma. Right forearm with AV fistula with good thrill and bruit. Old AV fistula left forearm. Neurological exam: alert, oriented X3. There is no gross neurologic deficits. Psychiatric exam: normal affect, normal mood. Cognitive function is grossly intact. Patient does not appear anxious or depressed. Skin exam: normal color, warm, dry. No rashes or other skin lesions. Result/EKG - Labs CBC & BMP: 03/09/17 04:14 03/09/17 04:14 Lab Results: I have reviewed the past 24 hour labs Labs: Laboratory Results - last 24 hr 03/09/17 03/09/17 03/09/17 04:14 04:14 04:14 WBC 9.0 RBC 3.74 L Hgb 11.4 L Hct 34.8 L MCV 93.0 MCH 31 MCHC 32.8 RDW 20.3 H Plt Count 217 MPV 10.6 Neut % (Auto) 57.4 Lymph % (Auto) 27.4 [place] % (Auto) 10.9 Eos % (Auto) 2.6 Baso % (Auto) 0.9 H Neut # (Auto) 5.2 Lymph # (Auto) 2.5 [place] # (Auto) 1.0 H Eos # (Auto) 0.2 Baso # (Auto) 0.1 Immature Gran % 0.8 Nucleated RBC % 0.0 Immature Gran # 0.07 Nucleated RBCs # 0.00 INR 1.1 PT Patient/Control Mix 12.0 Sodium 138 Potassium 3.7 Chloride 95 L Carbon Dioxide 32 Anion Gap 14.7 BUN 31 H D Creatinine 5.20 H GFR Calculation 8 BUN/Creatinine Ratio 5.00 L Glucose 114 H Calculated Osmolality 282.7 Calcium 10.4 H Magnesium 2.5 H - EKG EKG results: interpreted by me, no acute changes EKG shows: sinus rhythm IShawn Michael, MD, personally performed the services described in this documentation, ascribed by Jolynn Stephens RN in my presence, and it is both accurate and complete 326 .
--- NOTE | 2017-03-09 15:59 | Hospitalist Progress Note ---
Assessment and Plan (1) GI bleed Status: Acute Assessment and plan: GI managing Flexible sigmoidoscopy showed normal exam of terminal ileum and rectosigmoid colon Undergoing small bowel camera endoscopy Current Visit: No (2) Symptomatic anemia Status: Acute Assessment and plan: Secondary to GI bleed Stable Current Visit: No (3) Hx of mechanical aortic valve replacement Status: Chronic Assessment and plan: Coumadin restarted Current Visit: Yes (4) ESRD on dialysis Problem details: No acute indication for HD today. Status: Chronic Assessment and plan: Nephrology managing Current Visit: Yes Hospitalist: Subjective Interval history: No acute events overnight. Patient reports that she would like to go to a alf. Exam - Constitutional Vitals: Period Temp Pulse Resp BP Sys/Vargas Pulse Ox Last 24 Hr 96.6 F-98.1 F 75-98 16-20 96-130/47-76 92-99 General appearance: over weight - Head Head exam: Present: normocephalic, atraumatic - Eye Eye exam: Present: EOMI Pupils: Present: NONI - ENT ENT exam: Present: normal exam - Neck Neck exam: Present: normal inspection - Respiratory Respiratory exam: Present: clear to auscultation bilaterally - Cardiovascular Cardiovascular exam: Present: regular rate and rhythm - GI/Abdominal GI/Abdominal exam: Present: normal bowel sounds, soft. Absent: tenderness, rebound - Extremities Exam Extremities exam: Present: normal inspection - Back Exam Back exam: Present: normal inspection - Neurological Exam Neurological exam: Present: alert, oriented X3 - Psychiatric Psychiatric exam: Present: normal affect, normal mood - Skin Skin exam: Present: warm, intact Results - Labs CBC & BMP: 03/09/17 04:14 03/09/17 04:14
[2017-03-09] MEDS: CINACALCET 30 MG TABLET PO SCH (17:54)
[2017-03-09] MEDS: WARFARIN 5 MG TABLET PO SCH (17:56)
[2017-03-09] MEDS: PRAVASTATIN 20 MG TABLET PO SCH (20:37)
[2017-03-09] MEDS: rOPINIRole 0.25 MG TABLET PO SCH (20:37)
[2017-03-09] MEDS: MIRTAZAPINE 15 MG TABLET PO PRN (20:37)
[2017-03-10 02:28] LABS: Basophils # 0.1 10*3/uL (0.0-0.2); Basophils % 0.6 % (0.0-0.8); Eosinophils # 0.3 10*3/uL (0.0-0.87); Eosinophils % 3.1 % (0.00-10.9); Hematocrit 33.1 VOL% (35.7-47.0); Hemoglobin 10.7 GM/DL (12.0-16.0); Immature Granulocytes % 0.4 %; Immature Granulocytes Absolute 0.04 #; Lymphocytes # 2.3 10*3/uL (1.4-4.0); Lymphocytes % 20.9 % (21.3-54.2); Mean Corpuscular HGB Conc 32.3 GM/DL (32-36); Mean Corpuscular Hemoglobin 30 PG (27-34); Mean Corpuscular Volume 93.5 FL (87-102); Mean Platelet Volume 10.1 FL (9.6-12.0); Neutrophils # 7.1 10*3/uL (1.4-7.4); Platelet Count 225 T/CUMM (130-400); Red Blood Count 3.54 MC/CUMM (3.8-5.5); Red Cell Distribution Width 19.7 % (9.3-17.3); White Blood Count 10.8 T/CUMM (4-12)
[2017-03-10 02:47] LABS: INR 1.1
[2017-03-10 02:53] LABS: Calcium 9.7 MG/DL (8.5-10.1); Magnesium 2.4 MG/DL (1.8-2.4); Osmolality,Calculated 289.7 MOS/KG (273-304); Potassium 3.7 MMOL/L (3.5-5.1)
[2017-03-10] MEDS: ONDANSETRON 4 MG/2 ML VIAL IV PRN (05:58)
[2017-03-10] MEDS: LEVOTHYROXINE 100 MCG TABLET PO SCH ×2 (05:58→06:02)
[2017-03-10] MEDS: levETIRAcetam 500 MG TABLET PO SCH (09:16)
[2017-03-10] MEDS: PANTOPRAZOLE 40 MG TABLET PO SCH (09:17)
[2017-03-10] MEDS: clonazePAM 0.5 MG TABLET PO SCH ×2 (09:17→16:30)
[2017-03-10] MEDS: sitaGLIPtin 25 MG TABLET PO SCH (09:17)
[2017-03-10] MEDS: CALCIUM ACETATE 667 MG CAPSULE PO SCH ×2 (09:18→12:26)
[2017-03-10] MEDS: AZELASTINE NASAL 137 MCG/SPRAY 30 ML BOTTLE BOTH NARES SCH (09:47)
[2017-03-10] MEDS: CARVEDILOL 6.25 MG TABLET PO SCH (09:47)
[2017-03-10] MEDS: BUDESONIDE/FORMOTEROL 160-4.5 INHALER 6 GM INH SCH (09:48)
[2017-03-10] MEDS: DESITIN 4OZ/NYSTATIN 15 GRAM MIXTURE PASTE TOP SCH (09:48)
[2017-03-10] MEDS: amLODIPine 5 MG TABLET PO SCH (09:48)
[2017-03-10] MEDS: FLUTICASONE 50 MCG NASAL SPRAY 16 GM BOTTLE BOTH NARES SCH (09:48)
--- NOTE | 2017-03-10 11:57 | Cardiology Progress Note ---
Assessment and Plan (1) Chronic anticoagulation Status: Chronic Assessment and plan: Due to recent mechanical mitral valve and aortic valve replacements, patient will require anticoagulation. EGD and colonoscopy revealed small hiatal hernia and small internal hemorrhoids respectively. Coumadin was restarted on March 07. INR today 1.1. I have also started a low-dose of Lovenox until her Coumadin becomes therapeutic. Current Visit: No (2) Upper GI bleed Status: Acute Assessment and plan: Denies further bleeding today, and she has not had any melena. H&H remains essentially unchanged. EGD and flex sigmoid unrevealing for source of anemia. Small bowel capsule endoscopy results are pending. Current Visit: Yes (3) History of mitral valve replacement with mechanical valve Status: Chronic Assessment and plan: Mechanical mitral valve replacement in November 2016. Coumadin is now resumed. Will monitor INR and for bleeding closely. Current Visit: No (4) History of coronary artery bypass graft x 1 Status: Chronic Assessment and plan: Coronary artery bypass graft 1 with SVG to the RCA in November 2016. Current Visit: Yes (5) AVM (arteriovenous malformation) of small bowel, acquired Status: Chronic Assessment and plan: Known history. Defer management to gastroenterology. Current Visit: Yes (6) Coronary artery disease Status: Chronic Assessment and plan: Clinically she is stable and free of angina. Continue current management. Current Visit: Yes (7) Hx of mechanical aortic valve replacement Status: Chronic Assessment and plan: Mechanical aortic valve replacement in November 2016. Coumadin is now resumed. Current Visit: Yes (8) ESRD on dialysis Problem details: No acute indication for HD today. Status: Chronic Assessment and plan: Hemodialysis per nephrology recommendations. Current Visit: Yes (9) History of COPD Status: Chronic Assessment and plan: This appears stable at this time. Current Visit: No (10) Hypothyroidism Status: Chronic Assessment and plan: Thyroid supplement has been continued. Current Visit: Yes (11) Dyslipidemia Status: Chronic Assessment and plan: Statin has been continued. Current Visit: Yes Cardiology - PN: Subj Interval history: No new problems overnight. The patient denies any cardiac symptoms. She has been restarted on her Coumadin and we are awaiting her INR to become therapeutic. She has not had any additional gastrointestinal bleeding. She is undergoing small bowel camera evaluation. Current Medications Acetaminophen (Tylenol Tab) 650 mg PO Q4H PRN PRN Reason: Fever, Headache, Mild Pain Last Admin: 03/07/17 17:20 Dose: 650 mg Hydrocodone Bitart/Acetaminophen ([place] 5-325) 1 tablet PO Q6H PRN PRN Reason: Pain Moderate (4-7) Last Admin: 03/10/17 00:29 Dose: 1 tablet Al Hydrox/Mg Hydrox/Simethicone (Mylanta Max Strength Liquid) 30 ml PO Q6H PRN PRN Reason: Dyspepsia Last Admin: 03/08/17 23:15 Dose: 30 ml Amlodipine Besylate (Norvasc) 5 mg PO DAILY [facility] Last Admin: 03/10/17 09:48 Dose: Not Given Azelastine HCl (Astelin) 1 spray BOTH NARES BID [facility] Last Admin: 03/10/17 09:47 Dose: Not Given Budesonide/Formoterol Fumarate (Symbicort 160-4.5) 1 puff INH BID [facility] Last Admin: 03/10/17 09:48 Dose: 1 puff Calcium Acetate (Phoslo) 667 mg PO TID W/MEALS [facility] Last Admin: 03/10/17 09:18 Dose: Not Given Carvedilol (Coreg) 6.25 mg PO BID [facility] Last Admin: 03/10/17 09:47 Dose: Not Given Cinacalcet (Sensipar) 60 mg PO DAILY W/SUPPER [facility] Last Admin: 03/09/17 17:54 Dose: 60 mg Clonazepam (Klonopin) 1 mg PO TID [facility] Last Admin: 03/10/17 09:17 Dose: 1 mg Diphenhydramine HCl (Benadryl Inj) 50 mg IM Q6H PRN PRN Reason: Pruritis Fluticasone Propionate (Flonase) 1 spray BOTH NARES DAILY [facility] Last Admin: 03/10/17 09:48 Dose: Not Given Levetiracetam (Keppra Tab) 500 mg PO BID [facility] Last Admin: 03/10/17 09:16 Dose: 500 mg Levothyroxine Sodium (Synthroid Tab) 50 mcg PO DAILY@0700 [facility] Last Admin: 03/10/17 06:02 Dose: Not Given Mirtazapine (Remeron) 15 mg PO BEDTIME PRN PRN Reason: Sleep Last Admin: 03/09/17 20:37 Dose: 15 mg Nystatin/Zinc Oxide (Skin Protectant Mixture) 1 applic TOP BID [facility] Last Admin: 03/10/17 09:48 Dose: Not Given Ondansetron HCl (Zofran Inj) 4 mg IV Q4H PRN PRN Reason: Nausea/Vomiting Last Admin: 03/10/17 05:58 Dose: 4 mg Pantoprazole Sodium (Protonix Tab) 40 mg PO DAILY [facility] Last Admin: 03/10/17 09:17 Dose: 40 mg Pravastatin Sodium (Pravachol) 20 mg PO BEDTIME [facility] Last Admin: 03/09/17 20:37 Dose: 20 mg Ropinirole HCl (Requip) 0.5 mg PO BEDTIME [facility] Last Admin: 03/09/17 20:37 Dose: 0.5 mg Sitagliptin Phosphate (Januvia) 25 mg PO DAILY [facility] Last Admin: 03/10/17 09:17 Dose: 25 mg Warfarin Sodium (Coumadin) 2.5 mg PO We@1800 [facility] Last Admin: 03/07/17 17:21 Dose: 2.5 mg Warfarin Sodium (Coumadin) 5 mg PO SuMoTuThFrSa@1800 [facility] Last Admin: 03/09/17 17:56 Dose: 5 mg Exam (Progress Note) - Constitutional Vitals: Period Temp Pulse Resp BP Sys/Vargas Pulse Ox Last 24 Hr 96.6 F-97.9 F 91-96 16-20 100-137/43-67 92-97 Exam: General appearance: normal weight, no acute distress, resting comfortably. Head exam: normal inspection, atraumatic Eye exam: Pupils are equal and reactive. EOMI. There is no trauma. Neck exam: normal inspection no JVD. No carotid bruit. Trachea is in midline. Respiratory exam: clear to auscultation bilaterally. No rales, rhonchi or wheezes. Cardiovascular exam: regular rate and rhythm, she has appropriate mechanical valve sounds of her mechanical prosthetic aortic and mitral valves. Peripheral Pulses: 2+ throughout. GI/Abdominal exam: normal bowel sounds, soft and nontender, no abdominal bruits or pulsatile masses. Musculoskeletal/Extremities exam: normal inspection without edema or cyanosis. No deformities or trauma. Right forearm with AV fistula with good thrill and bruit. Old AV fistula left forearm. Neurological exam: alert, oriented X3. There is no gross neurologic deficits. Psychiatric exam: normal affect, normal mood. Cognitive function is grossly intact. Patient does not appear anxious or depressed. Skin exam: normal color, warm, dry. No rashes or other skin lesions. Result/EKG - Labs CBC & BMP: 03/10/17 02:02 03/10/17 02:02 Lab Results: I have reviewed the past 24 hour labs Labs: Laboratory Results - last 24 hr 03/09/17 03/09/17 03/10/17 07:07 21:05 02:02 WBC 10.8 RBC 3.54 L Hgb 10.7 L Hct 33.1 L MCV 93.5 MCH 30 MCHC 32.3 RDW 19.7 H Plt Count 225 MPV 10.1 Neut % (Auto) 66.0 Lymph % (Auto) 20.9 L [place] % (Auto) 9.0 Eos % (Auto) 3.1 Baso % (Auto) 0.6 Neut # (Auto) 7.1 Lymph # (Auto) 2.3 [place] # (Auto) 1.0 H Eos # (Auto) 0.3 Baso # (Auto) 0.1 Immature Gran % 0.4 Nucleated RBC % 0.0 Immature Gran # 0.04 Nucleated RBCs # 0.00 INR PT Patient/Control Mix Sodium Potassium Chloride Carbon Dioxide Anion Gap BUN Creatinine GFR Calculation BUN/Creatinine Ratio Glucose POC Glucose 124 H 98 Calculated Osmolality Calcium Magnesium 03/10/17 03/10/17 03/10/17 02:02 02:02 07:28 WBC RBC Hgb Hct MCV MCH MCHC RDW Plt Count MPV Neut % (Auto) Lymph % (Auto) [place] % (Auto) Eos % (Auto) Baso % (Auto) Neut # (Auto) Lymph # (Auto) [place] # (Auto) Eos # (Auto) Baso # (Auto) Immature Gran % Nucleated RBC % Immature Gran # Nucleated RBCs # INR 1.1 PT Patient/Control Mix 12.0 Sodium 138 Potassium 3.7 Chloride 95 L Carbon Dioxide 30 Anion Gap 16.7 H BUN 50 H D Creatinine 6.70 H GFR Calculation 6 BUN/Creatinine Ratio 7.00 Glucose 132 H POC Glucose 111 H Calculated Osmolality 289.7 Calcium 9.7 Magnesium 2.4 - EKG EKG results: interpreted by me
[2017-03-10] MEDS ORDERED: ENOXAPARIN 30 MG/0.3 ML SYRINGE SUBCUT SCH (12:00)
--- NOTE | 2017-03-10 12:26 | Nephrology Progress Note ---
Nephrology - PN: Subj Interval history: No shortness of breath or GI symptoms today Exam (PN)-Nephrology - Vital Signs Vital signs: Period Temp Pulse Resp BP Sys/Vargas Pulse Ox Last 24 Hr 96.8 F-97.9 F 91-95 16-20 105-137/43-67 95-97 Exam: ENT: Normal Cardiovascular: Regular rate and rhythm. No murmur rub or gallop Lungs: Clear Extremities: No edema - Lab 03/10/17 02:02 03/10/17 02:02 Most recent lab results Calcium 9.7 MG/DL (8.5-10.1) 03/10/17 02:02 Magnesium 2.4 MG/DL (1.8-2.4) 03/10/17 02:02 Assessment and Plan (1) ESRD on dialysis Status: Chronic Assessment and plan: 61-year-old woman with: * ESRD. Dialysis today * Prosthetic aortic valve * AVMs * Hypothyroidism * COPD Current Visit: Yes (2) AVM (arteriovenous malformation) of small bowel, acquired Status: Chronic Current Visit: Yes (3) Coronary artery disease Status: Chronic Current Visit: Yes (4) Hx of mechanical aortic valve replacement Status: Chronic Current Visit: Yes (5) Hypothyroidism Status: Chronic Current Visit: Yes (6) GI bleed Status: Acute Current Visit: No
--- NOTE | 2017-03-10 14:59 | Discharge Summary ---
<Carlos Reddy - Last Filed: 03/10/17 14:49> Hospital Course - Hospital Course Hospital Course: Ms. Betancourt is a 61-year-old female who was admitted to the [place] ED on 2016 with complaints of weakness and dizziness. Upon admission, she was found to have profound anemia with GI bleed and melena. Patient does have a history of AVMs and recently underwent aortic and mitral valve replacement with mechanical devices as well as single bypass to the RCA in November 2016. She is on Coumadin therapy for mechanical valves but subtherapeutic on admission. Coumadin was held and Lovenox was started. Patient was also transfused 2 units of packed red blood cells while here and remained stable throughout the duration of her hospitalization. While hospitalized, was also followed by nephrology for hemodialysis gastroenterology for the anemia, cardiology for chronic anticoagulation. On 03/05/2017, GI performed an EGD which revealed small hiatal hernia and retained food in the stomach suggestive of gastric motility disorder. 03/07/2017, patient underwent a subsequent flex sigmoidoscopy which revealed a normal exam of the terminal ileum and rectal sigmoid colon. Small bowel endoscopy was initiated. Having found no significant source of bleeding, and in agreement with gastroenterology, patient's Coumadin was restarted on 03/07/2017 she remains subtherapeutic. She has experienced multiple admissions with sub or supra therapeutic inr. Will continue her at 5mg Daily. She is to follow-up Sunday with her pcp for an inr check. Patient continued to receive hemodialysis as scheduled on Tuesdays and Saturdays while here and has tolerated those procedures well. At this time patient has reached maximum benefit from hospitalization and is stable for discharge. She did initially desire senior care placement but changed her mind after being accepted. Discharge Plan - Discharge Data Disposition: Disch To Home/Self Care - Discharge Medications New Acetaminophen Tab [Tylenol Tab] 650 mg PO Q4H PRN tablet PRN Reason: Fever, Headache, Mild Pain Budesonide/Formoterol 160-4.5 [Symbicort 160-4.5] 1 puff INH BID inhaler Calcium Acetate [Phoslo] 667 mg PO TID W/MEALS capsule Carvedilol [Coreg] 6.25 mg PO BID tablet Cinacalcet [Sensipar] 60 mg PO DAILY W/SUPPER tablet Pravastatin [Pravachol] 20 mg PO BEDTIME tablet amLODIPine [Norvasc] 5 mg PO DAILY tablet levETIRAcetam TAB [Keppra Tab] 500 mg PO BID tablet Alum/Mag/Simeth Max Str Liquid [Mylanta Max Strength Liquid] 30 ml PO Q6H PRN PRN Reason: Dyspepsia Levothyroxine Tab [Synthroid Tab] 50 mcg PO DAILY@0700 tablet Continue Ropinirole HCl 2 tablet PO BEDTIME OLANZapine [Olanzapine] 2.5 mg PO BID Cinacalcet HCl [Sensipar] 60 mg PO DAILY amLODIPine [Norvasc] 5 mg PO DAILY Ranolazine [Ranexa] 1,000 mg PO BID Montelukast Tab [Singulair Tab] 10 mg PO BEDTIME Temazepam [Restoril] 15 mg PO BEDTIME Pantoprazole Tab [Protonix Tab] 40 mg PO DAILY HYDROcodone/ACETAMIN 10-325 [[place] 10-325] 10 mg PO TID Cyclobenzaprine [Flexeril] 10 mg PO TID Promethazine Tab [Phenergan Tab] 50 mg PO Q6HR Warfarin [Coumadin] 2.5 mg PO WE Carvedilol [Coreg] 6.25 mg PO BID levETIRAcetam [Levetiracetam] 500 mg PO BID clonazePAM [Clonazepam] 1 mg PO TID Warfarin [Coumadin] 5 mg PO SUMOTUTHFRSA Budesonide/Formoterol 160-4.5 [Symbicort 160-4.5] 2 puffs INH BID Pravastatin [Pravachol] 20 mg PO BEDTIME Calcium Acetate [Phoslo] 667 mg PO 5X DAILY - Follow Up or Referral - Forms/Instructions Exam - Constitutional Vitals: Period Temp Pulse Resp BP Sys/Vargas Pulse Ox Last 24 Hr 96.8 F-97.9 F 91-95 16-20 104-137/41-67 95-97 Discharge Results Labs on day of discharge: Labs from last 24 hours 03/10/17 03/10/17 03/10/17 07:28 02:02 02:02 WBC RBC Hgb Hct MCV MCH MCHC RDW Plt Count MPV Neut % (Auto) Lymph % (Auto) Stokes % (Auto) Eos % (Auto) Baso % (Auto) Neut # (Auto) Lymph # (Auto) Stokes # (Auto) Eos # (Auto) Baso # (Auto) Immature Gran % Nucleated RBC % Immature Gran # Nucleated RBCs # INR 1.1 PT Patient/Control Mix 12.0 Sodium 138 Potassium 3.7 Chloride 95 L Carbon Dioxide 30 Anion Gap 16.7 H BUN 50 H D Creatinine 6.70 H GFR Calculation 6 BUN/Creatinine Ratio 7.00 Glucose 132 H POC Glucose 111 H Calculated Osmolality 289.7 Calcium 9.7 Magnesium 2.4 03/10/17 03/09/17 02:02 21:05 WBC 10.8 RBC 3.54 L Hgb 10.7 L Hct 33.1 L MCV 93.5 MCH 30 MCHC 32.3 RDW 19.7 H Plt Count 225 MPV 10.1 Neut % (Auto) 66.0 Lymph % (Auto) 20.9 L Stokes % (Auto) 9.0 Eos % (Auto) 3.1 Baso % (Auto) 0.6 Neut # (Auto) 7.1 Lymph # (Auto) 2.3 Stokes # (Auto) 1.0 H Eos # (Auto) 0.3 Baso # (Auto) 0.1 Immature Gran % 0.4 Nucleated RBC % 0.0 Immature Gran # 0.04 Nucleated RBCs # 0.00 INR PT Patient/Control Mix Sodium Potassium Chloride Carbon Dioxide Anion Gap BUN Creatinine GFR Calculation BUN/Creatinine Ratio Glucose POC Glucose 98 Calculated Osmolality Calcium Magnesium DS: Provider Date of admission: 03/02/17 22:27 Primary care physician: . No PCP Attending physician on admission: Channing Garcia MD Consults: 03/02/17 23:06 Consult to Physician [CONS] Routine Comment: On-call physician/upper GI bleed with melena and a Consulting Provider: Darion Luke Consult to Specialist Group: Gastroenterology When should Consulting Provider be notified: In am Person Notified: Mariella Reyna Date Notified: 03/05/17 Time Notified: 08:03 03/03/17 14:50 Consult to Physician [CONS] Routine Comment: in with GI bleed, has a mechanical heart valve Consulting Provider: Yury Ni Person Notified: jaelyn Date Notified: 03/03/17 Time Notified: 14:53 Consult Notification Comment: Spoke with Jaelyn again at [facility] at 1521 and she is still waiting on Dr Ni to call back so she can tell him of consult Discharging clinician: Carlos ALVES Expected date of discharge: 03/10/17 <Tom Salcido - Last Filed: 03/10/17 15:39> Hospital Course - Time spent with patient Time with patient DS: Greater than 30 minutes (50) Diagnosis - Discharge Diagnosis (1) GI bleed Status: Resolved (2) Symptomatic anemia Status: Resolved (3) Hx of mechanical aortic valve replacement Status: Chronic (4) ESRD on dialysis Status: Chronic Discharge Plan - Discharge Data Condition at Discharge: Stable Discharge Diet: heart healthy Activity: increase activity as tolerated Hygiene: no restrictions Weight Bearing at Discharge: weight bear as tolerated Driving: no restrictions Contact your physician if you experience:: fever over 101, Shortness of breath Exam - Constitutional General appearance: over weight - Head Head exam: Present: normocephalic, atraumatic - Eye Eye exam: Present: EOMI Pupils: Present: NONI - ENT ENT exam: Present: normal exam - Neck Neck exam: Present: normal inspection - Respiratory Respiratory exam: Present: clear to auscultation bilaterally. Absent: rhonchi, wheezes - Cardiovascular Cardiovascular exam: Present: regular rate and rhythm - GI/Abdominal GI/Abdominal exam: Present: normal bowel sounds, soft. Absent: tenderness, rebound - Extremities Exam Extremities exam: Present: normal inspection - Back Exam Back exam: Present: normal inspection - Neurological Exam Neurological exam: Present: alert, oriented X3 - Psychiatric Psychiatric exam: Present: normal affect, normal mood - Skin Skin exam: Present: warm, intact
[2017-03-10] MEDS: ACETAMINOPHEN 325 MG TABLET PO PRN (16:28)
[2017-03-10 16:59] VITALS: BP 93/54
== END 2017-03-10 17:09 | disposition home or self-care (01) | DRG 377 ==
LOC: N.ED 17:43 → SUATTDRO 22:27 → N.EDINP 22:27 → N.5E 23:35
PROVIDERS: ADMIT Internal Medicine Infectious Disease; ATTEND Internal Medicine

== ENCOUNTER 2017-04-02 20:15 | Observation (INO) ==
[2017-04-02] MEDS ORDERED: ALBUTEROL 2.5 MG/3 ML NEB RESP TX STA (20:58)
[2017-04-02] MEDS ORDERED: ONDANSETRON 4 MG/2 ML VIAL IV STA (20:58)
[2017-04-02] MEDS ORDERED: CALCIUM GLUCONATE 2,000 MG in SODIUM CHLORIDE 0.9% 100 ML IV ONE (20:58)
[2017-04-02] MEDS ORDERED: MEPERIDINE 25 MG/1 ML VIAL IV STA (20:58)
[2017-04-02 21:12] LABS: Basophils # 0.1 10*3/uL (0.0-0.2); Basophils % 0.7 % (0.0-0.8); Eosinophils # 0.1 10*3/uL (0.0-0.87); Eosinophils % 1.5 % (0.00-10.9); Hematocrit 26.9 VOL% (35.7-47.0); Hemoglobin 8.8 GM/DL (12.0-16.0); Immature Granulocytes % 0.6 %; Immature Granulocytes Absolute 0.04 #; Lymphocytes # 1.6 10*3/uL (1.4-4.0); Lymphocytes % 23.1 % (21.3-54.2); Mean Corpuscular HGB Conc 32.7 GM/DL (32-36); Mean Corpuscular Hemoglobin 31 PG (27-34); Mean Corpuscular Volume 95.1 FL (87-102); Monocytes # 0.5 10*3/uL (0.11-0.8); Monocytes % 6.5 % (1.7-12.7); Neutrophils # 4.7 10*3/uL (1.4-7.4); Neutrophils % 67.6 % (38.7-73.9); Platelet Count 204 T/CUMM (130-400); Red Blood Count 2.83 MC/CUMM (3.8-5.5); Red Cell Distribution Width 19.3 % (9.3-17.3); White Blood Count 6.9 T/CUMM (4-12)
[2017-04-02] MEDS ORDERED: ONDANSETRON 4 MG/2 ML VIAL ONE (21:14)
[2017-04-02] MEDS ORDERED: MEPERIDINE 25 MG/1 ML VIAL ONE (21:14)
[2017-04-02] MEDS ORDERED: CALCIUM GLUCONATE 1,000 MG/10 ML VIAL IV ONE (21:15)
[2017-04-02 21:32] LABS: Albumin 3.7 G/DL (3.4-5.0); Bilirubin,Total 1.3 MG/DL (0.2-1.0); Calcium 9.5 MG/DL (8.5-10.1); Magnesium 1.8 MG/DL (1.8-2.4); Osmolality,Calculated 282.2 MOS/KG (273-304); Potassium 4.9 MMOL/L (3.5-5.1); Total Protein 7.1 G/DL (6.4-8.3)
[2017-04-02 23:08] LABS: INR 1.4; PT Patient Result 15.3 SECS; Partial Thromboplastin Time 30.3 SECS (0-40)
--- NOTE | 2017-04-03 00:29 | Emergency Department Note ---
I, Jackelyn Garcia, am scribing for, and in the presence of, Telly Ventura MD 20: 53. ILorenzo Kevin Lee, MD, personally performed the services described in this documentation, ascribed by Jackelyn Garcia in my presence, and it is both accurate and complete . Arrival - Arrival Chief Complaint: Chest Pain Stated Complaint: PAIN/HEADACHE/BODY PAIN/CHEST PAINS ED Nursing Triage Note: patient states she is a dialysis pt, tts. thinks her potassium is up, c/o n/d, headaches, generalized body aches. has prn o2 that she has used the last two nights. also c/o midsternal chest pain, had open heart surgery november 30 at the [facility]. Mode of Arrival: Wheelchair Limitations: No Limitations Source: Patient - History of Present Illness HPI Narrative: Pt is a 61 y/o female who came to ED with c/o chest pain, TIM, and body aches from elevated potassium that started earlier tonight. Pt reports dialyzes last on Sunday and next appointment is Sunday. Pt has associated sxs of SOB, nausea, and severe diarrhea. Pt states laying down is worse for her vertigo. Pt states past two nights she has to use her O2 due to SOB. PMhx of two mechanical valves with open heart surgery 11/29/16; IDDM; Fibromyalgia; COPD; Asthma. Onset (ago): hour(s) Consistency: constant Severity: moderate Severity scale (1-10): 5 Quality: aching, fullness Allergies/Adverse Reactions: Allergies Allergy/AdvReac Type Severity Reaction Status Date / Time Iodinated Contrast Media - Allergy RASH Verified 01/22/17 01:00 Oral and [Iodinated Contrast Media - IV Dye] Penicillins Allergy ANAPHYLAXIS Verified 01/22/17 01:00 aspirin AdvReac Nausea Verified 01/22/17 01:00 cephalexin [From Keflex] AdvReac Vomiting Verified 01/22/17 01:00 Sulfa (Sulfonamide AdvReac Vomiting Verified 01/22/17 01:00 Antibiotics) Home Medications: Home Medications Medication Instructions Recorded Confirmed Type Budesonide/Formoterol 160-4.5 2 puffs INH BID 03/03/17 04/02/17 History [Symbicort 160-4.5] Cinacalcet HCl [Sensipar] 60 mg PO DAILY 03/03/17 04/02/17 History Cyclobenzaprine [Flexeril] 10 mg PO TID 03/03/17 04/02/17 History HYDROcodone/ACETAMIN 10-325 [[place] 10 mg PO TID 03/03/17 04/02/17 History 10-325] Montelukast Tab [Singulair Tab] 10 mg PO BEDTIME 03/03/17 04/02/17 History OLANZapine [Olanzapine] 2.5 mg PO BID 03/03/17 04/02/17 History Pantoprazole Tab [Protonix Tab] 40 mg PO DAILY 03/03/17 04/02/17 History Pravastatin [Pravachol] 20 mg PO BEDTIME 03/03/17 04/02/17 History Ranolazine [Ranexa] 1,000 mg PO BID 03/03/17 04/02/17 History Ropinirole HCl 2 tablet PO BEDTIME 03/03/17 04/02/17 History Temazepam [Restoril] 15 mg PO BEDTIME 03/03/17 04/02/17 History Warfarin [Coumadin] 2.5 mg PO WE 03/03/17 04/02/17 History Warfarin [Coumadin] 5 mg PO SUMOTUTHFRSA 03/03/17 04/02/17 History clonazePAM [Clonazepam] 1 mg PO TID 03/03/17 04/02/17 History levETIRAcetam [Levetiracetam] 500 mg PO BID 03/03/17 04/02/17 History Calcium Acetate [Phoslo] 667 mg PO TID W/MEALS capsule 03/10/17 04/02/17 Rx Carvedilol [Coreg] 6.25 mg PO BID tablet 03/10/17 04/02/17 Rx Cinacalcet [Sensipar] 60 mg PO DAILY W/SUPPER tablet 03/10/17 04/02/17 Rx Levothyroxine Tab [Synthroid Tab] 50 mcg PO DAILY@0700 tablet 03/10/17 Rx amLODIPine [Norvasc] 5 mg PO DAILY tablet 03/10/17 04/02/17 Rx Review of System - Review of System 12 point system: reviewed and no additional remarkable complaints except as stated - Review of System Constitutional: Present: weakness (body aches). Absent: chills, fever Respiratory: Present: respiratory distress (SOB) Cardiovascular: Present: chest pain. Absent: orthopnea, syncope Gastrointestinal: Present: nausea, diarrhea (severe). Absent: abdominal pain, vomiting, constipation Skin: Absent: rash Neurological: Present: headache. Absent: confusion Medical,Surgical,& Family Hx - Medical History Cardio: History of: CAD (triple bypass surgery with recent cardiac surgery 11/29), Valvular Heart Disease (has had recent aortic valve replacement), Cardiovascular Problems (impression recent aortic issue.) Psychological: History of: Anxiety Disorders, Depression Neurology: History of: Peripheral Neuropathy (FEET/TOES), Vertigo No history of: Seizures Endocrine: History of: Diabetes Mellitus (IDDM) Rheumatology: History of;: Fibromyalgia Respiratory: History of: Asthma, COPD Renal: History of: Renal Failure Gastrointestinal: History of: GERD (on dialysis), Gastrointestinal Bleed Hematology: History of: Anemia, Bleeding Problems (high inr), Clotting Problems (pt states she had a clot "three or four years ago") No history of: Blood Transfusion Reaction Other: History of: Miscellaneous Medical Problems (Sinus surgery) No history of: Anesthesia Reactions - Surgical History Cardiac Surgeries: Sugical HX of: Cardiac Catheterization (NO STENTS PLACE) Thoracic Surgeries: Patient denies;: Organ Transplant HEENT Surgeries: Surgical HX of: Tonsilectomy & Adenoidectomy Abdominal Surgeries: Surgical HX of: Abdominal Surgery (COLON REMOVED), Cholecystectomy Reproductive Surgeries: Surgical HX of;: Gynecologic Surgery, Hysterectomy - Family History Family History: Reports;: Family Cancer (mother ovarian, sister breast), Family Diabetes (mother), Family Heart Disease (mother -[place]), Family Hypertension ( mother), Family Stroke (mother and brother) - Social History Smoking Status: Former smoker Frequency of Alcohol Use: None Type of Drug Use: None Marital Status: Single Lives With:: Alone Functional capacity: independent ambulation Exam Vital Signs: Vital Signs Temperature 97.3 F L 04/02/17 20:17 Pulse Rate 82 04/02/17 21:16 Respiratory Rate 16 04/02/17 21:16 Blood Pressure 138/78 04/02/17 20:30 O2 Sat by Pulse Oximetry 100 04/02/17 21:16 - General General appearance: alert, in distress (mild) - Head Head exam: Present: atraumatic, normocephalic - Eye Eye exam: Present: PERRL, EOMI - ENT ENT exam: Present: mucous membranes moist. Absent: mucous membranes dry - Neck Neck exam: Present: full ROM. Absent: tenderness - Chest Chest inspection: Present: symmetric chest wall rise. Absent: tenderness - Respiratory Respiratory exam: Present: normal lung sounds bilaterally. Absent: respiratory distress - Cardiovascular Cardiovascular exam: Present: clicks - Abdominal Exam Abdominal exam: Present: soft, normal bowel sounds. Absent: tenderness - Extremities Exam Extremities exam: Present: full ROM, other (good thrill in right). Absent: tenderness, pedal edema - Neurological Exam Neurological exam: Present: alert, oriented X3, CN II-XII intact. Absent: motor sensory deficit - Psychiatric Psychiatric exam: Present: normal affect, normal mood - Skin Skin exam: Present: warm, dry. Absent: normal color (jaundice) Course Course Narrative: will admit for rule out and dialysis tomorrow Procedures - Central Line Placement Right Femoral Consent Obtained: verbal consent MD Prep: gown, gloves Central Line Prep: Chlorhexidine scrub, sterile drapes applied Local Anesthetic: lidocaine 1% Ultrasound Used for Placement: Yes Central Line Lumen Inserted: triple Post Procedure: sutured in place, good blood return, all ports aspirated, flushed, capped, sterile dressing applied Patient Tolerated Procedure: well (no complications) Results - Labs CBC & BMP: 04/02/17 21:05 04/02/17 21:05 Lab Results: I have reviewed the patients labs Labs: Laboratory Tests 04/02/17 04/02/17 21:05 21:05 WBC 6.9 RBC 2.83 L Hgb 8.8 L Hct 26.9 L RDW 19.3 H Plt Count 204 Sodium 134 L Potassium 4.9 Chloride 94 L Carbon Dioxide 31 BUN 51 H Creatinine 7.50 H Glucose 124 H Total Bilirubin 1.30 H Albumin/Globulin Ratio 1.0 L Laboratory Tests 04/02/17 21:05 Troponin I < 0.015 Laboratory Tests 04/02/17 21:05 INR 1.4 PT Patient/Control Mix 15.3 D Circ Anticoag PTT 30.3 D Laboratory Tests 04/02/17 23:54 Troponin I 0.019 - Diagnostic Findings Procedure: Chest x-ray: image reviewed by me (mild fluid overload) Disposition Clinical Impression: Chest pain, mild fluid overload Case discussed with: patient Disposition: Still a Patient Condition: Stable
--- NOTE | 2017-04-03 00:57 | Hospitalist History & Physical ---
Assessment and Plan (1) Chest pain Status: Acute Current Visit: No (2) Status post mechanical aortic valve replacement Status: Chronic Current Visit: No (3) History of mitral valve replacement with mechanical valve Status: Chronic Current Visit: No (4) Subtherapeutic international normalized ratio (INR) Status: Acute Assessment and plan: Our plan for this patient will be admission to our service. She need to be placed on telemetry we need to consult cardiology we will draw serial cardiac enzymes will need to watch her INR she needs to have her Coumadin dose increase she is only at 1.4 at a minimum she should be 2.5. Will reevaluate patient in the morning and adjust plans as appropriate Current Visit: Yes History of Present Illness Chief complaint: Chest pain History of present illness: Ms. Betancourt is a 61 year old female with past medical history consistent with end- stage renal disease diabetes aortic valve and mitral valve replacement who was in her normal state of health until tonight. Patient comes in complaining about chest pain. She reports is a tight sensation. She says it makes her feel nauseated. And she also is complaining of shortness of breath. Patient thought she was overloaded and had high potassium. Patient's EKG was consistent with hyperkalemia. Patient was treated for hyperkalemia but when the labs came back it was not elevated. We were consulted for admission. Patient sees Dr. Escobar as her job service consultant. Home Medications Medication Instructions Recorded Confirmed Type Budesonide/Formoterol 160-4.5 2 puffs INH BID 03/03/17 04/02/17 History [Symbicort 160-4.5] Cinacalcet HCl [Sensipar] 60 mg PO DAILY 03/03/17 04/02/17 History Cyclobenzaprine [Flexeril] 10 mg PO TID 03/03/17 04/02/17 History HYDROcodone/ACETAMIN 10-325 [[place] 10 mg PO TID 03/03/17 04/02/17 History 10-325] Montelukast Tab [Singulair Tab] 10 mg PO BEDTIME 03/03/17 04/02/17 History OLANZapine [Olanzapine] 2.5 mg PO BID 03/03/17 04/02/17 History Pantoprazole Tab [Protonix Tab] 40 mg PO DAILY 03/03/17 04/02/17 History Pravastatin [Pravachol] 20 mg PO BEDTIME 03/03/17 04/02/17 History Ranolazine [Ranexa] 1,000 mg PO BID 03/03/17 04/02/17 History Ropinirole HCl 2 tablet PO BEDTIME 03/03/17 04/02/17 History Temazepam [Restoril] 15 mg PO BEDTIME 03/03/17 04/02/17 History Warfarin [Coumadin] 2.5 mg PO WE 03/03/17 04/02/17 History Warfarin [Coumadin] 5 mg PO SUMOTUTHFRSA 03/03/17 04/02/17 History clonazePAM [Clonazepam] 1 mg PO TID 03/03/17 04/02/17 History levETIRAcetam [Levetiracetam] 500 mg PO BID 03/03/17 04/02/17 History Calcium Acetate [Phoslo] 667 mg PO TID W/MEALS capsule 03/10/17 04/02/17 Rx Carvedilol [Coreg] 6.25 mg PO BID tablet 03/10/17 04/02/17 Rx Cinacalcet [Sensipar] 60 mg PO DAILY W/SUPPER tablet 03/10/17 04/02/17 Rx Levothyroxine Tab [Synthroid Tab] 50 mcg PO DAILY@0700 tablet 03/10/17 Rx amLODIPine [Norvasc] 5 mg PO DAILY tablet 03/10/17 04/02/17 Rx Allergies Allergy/AdvReac Type Severity Reaction Status Date / Time Iodinated Contrast Media - Allergy RASH Verified 01/22/17 01:00 Oral and [Iodinated Contrast Media - IV Dye] Penicillins Allergy ANAPHYLAXIS Verified 01/22/17 01:00 aspirin AdvReac Nausea Verified 01/22/17 01:00 cephalexin [From Keflex] AdvReac Vomiting Verified 01/22/17 01:00 Sulfa (Sulfonamide AdvReac Vomiting Verified 01/22/17 01:00 Antibiotics) Medical,Surgical,& Family Hx - Medical History Cardio: History of: CAD (triple bypass surgery with recent cardiac surgery 11/29), Valvular Heart Disease (has had recent aortic valve replacement), Cardiovascular Problems (impression recent aortic issue.) Psychological: History of: Anxiety Disorders, Depression Neurology: History of: Peripheral Neuropathy (FEET/TOES), Vertigo No history of: Seizures Endocrine: History of: Diabetes Mellitus (IDDM) Rheumatology: History of;: Fibromyalgia Respiratory: History of: Asthma, COPD Renal: History of: Renal Failure Gastrointestinal: History of: GERD (on dialysis), Gastrointestinal Bleed Hematology: History of: Anemia, Bleeding Problems (high inr), Clotting Problems (pt states she had a clot "three or four years ago") No history of: Blood Transfusion Reaction Other: History of: Miscellaneous Medical Problems (Sinus surgery) No history of: Anesthesia Reactions - Surgical History Cardiac Surgeries: Sugical HX of: Cardiac Catheterization (NO STENTS PLACE) Thoracic Surgeries: Patient denies;: Organ Transplant HEENT Surgeries: Surgical HX of: Tonsilectomy & Adenoidectomy Abdominal Surgeries: Surgical HX of: Abdominal Surgery (COLON REMOVED), Cholecystectomy Reproductive Surgeries: Surgical HX of;: Gynecologic Surgery, Hysterectomy - Family History Family History: Reports;: Family Cancer (mother ovarian, sister breast), Family Diabetes (mother), Family Heart Disease (mother -[place]), Family Hypertension ( mother), Family Stroke (mother and brother) - Social History Smoking Status: Former smoker Frequency of Alcohol Use: None Type of Drug Use: None 12 point system: reviewed and no additional remarkable complaints except as stated Exam - Constitutional Vitals: Period Temp Pulse Resp BP Sys/Vargas Pulse Ox Last 24 Hr 97.3 F-97.3 F 82-100 12-20 138-145/78-82 100-100 General appearance: over weight - Head Head exam: Present: normal inspection - Eye Eye exam: Present: EOMI Pupils: Present: NONI - ENT ENT exam: Present: normal exam, normal external ear exam - Neck Neck exam: Present: normal inspection - Respiratory Respiratory exam: Present: clear to auscultation bilaterally - Cardiovascular Cardiovascular exam: Present: other (Systolic ejection murmur along with sounds of 2 mechanical valves) - GI/Abdominal GI/Abdominal exam: Present: normal bowel sounds - Extremities Exam Extremities exam: Present: normal inspection Results - Labs CBC & BMP: 04/02/17 21:05 04/02/17 21:05
[2017-04-03] MEDS ORDERED: ONDANSETRON 4 MG/2 ML VIAL IV PRN (01:01)
[2017-04-03] MEDS ORDERED: WARFARIN 7.5 MG TABLET PO ONE (01:11)
--- NOTE | 2017-04-03 02:39 | EKG Report ---
Stationary ECG Study [facility] ER Test Date: 04/03/2017 12:11:37 AM Pat Name: OSBALDO FARIAS Department: Room: 279 Gender: F Radio Engineer: : 1955 Requested by: Telly Landaverde Order Number: [id number] Reading MD: LUZ MARIA GUTIERREZ Intervals [place] Rate: 97 P: 69 [place]: 148 QRS: 46 QRSD: 85 T: 71 QT: 349 QTc: 403 Interpretive Statements SINUS RHYTHM Electronically Signed On 04-06-17 15:32:49 CDT by LUZ MARIA GUTIERREZ [email or web address]
[2017-04-03] MEDS: ENOXAPARIN 80 MG/0.8 ML SYRINGE SUBCUT SCH ×2 (02:48→23:51)
[2017-04-03] MEDS: LEVOTHYROXINE 50 MCG TABLET PO SCH (05:59)
--- NOTE | 2017-04-03 06:00 | EKG Report ---
Stationary ECG Study [facility] ER Test Date: 04/02/2017 8:27:32 PM Pat Name: OSBALDO FARIAS Department: Room: 279 Gender: F Detacker: Cinthya : 1955 Requested by: Telly Landaverde Order Number: [id number] Reading MD: LUZ MARIA GUTIERREZ Intervals [place] Rate: 100 P: 76 [place]: 140 QRS: 76 QRSD: 83 T: 87 QT: 353 QTc: 410 Interpretive Statements SINUS TACHYCARDIA Electronically Signed On 04-06-17 15:30:27 CDT by LUZ MARIA GUTIERREZ [email or web address]
[2017-04-03 06:48] LABS: INR 1.4; PT Patient Result 15.1 SECS
--- NOTE | 2017-04-03 07:16 | XRay Report ---
History is chest pain Comparison 02/05/2017 The heart and vessels are enlarged with the [id number] diffuse bilateral pulmonary edema. No more focal consolidation seen Impression: Congestive failure PROCEDURE INTERPRETED AT [facility] DEPARTMENT OF RADIOLOGY Final Report Signed by: Dr. Amanda Pelletier
[2017-04-03] MEDS ORDERED: CINACALCET HCL 60 MG PO SCH (09:00)
[2017-04-03] MEDS: CALCIUM ACETATE 667 MG CAPSULE PO SCH ×3 (13:04→17:26)
[2017-04-03] MEDS: CARVEDILOL 6.25 MG TABLET PO SCH ×2 (13:05→20:23)
[2017-04-03] MEDS: ASPIRIN EC 325 MG TABLET PO SCH (13:05)
[2017-04-03] MEDS: clonazePAM 0.5 MG TABLET PO SCH ×3 (13:06→20:27)
[2017-04-03] MEDS: levETIRAcetam 500 MG TABLET PO SCH ×2 (13:06→20:36)
[2017-04-03] MEDS: CYCLOBENZAPRINE 10 MG TABLET PO SCH ×3 (13:06→20:22)
[2017-04-03] MEDS: PANTOPRAZOLE 40 MG TABLET PO SCH (13:07)
[2017-04-03] MEDS: amLODIPine 5 MG TABLET PO SCH (13:07)
[2017-04-03] MEDS: RANOLAZINE 500 MG TABLET PO SCH ×2 (13:07→20:22)
[2017-04-03] MEDS: OLANZapine 2.5 MG TABLET PO SCH ×2 (13:11→20:22)
[2017-04-03] MEDS: BUDESONIDE/FORMOTEROL 160-4.5 INHALER 6 GM INH SCH ×2 (13:11→20:23)
--- NOTE | 2017-04-03 13:57 | Cardiology Consult Note ---
I, Jolynn Stephens RN, am scribing for, and in the presence of, Tom Escobar MD 13:56. Assessment and Plan - Time spent with patient Time spent with patient: Greater than 30 minutes (due to assessment, planning, documentation, medication review) (1) Chest pain Status: Acute Assessment and plan: Her chest pain is clearly musculoskeletal in nature. Her cardiac testing has been benign. I am going to give her a trial of Toradol. Current Visit: Yes (2) Anemia Status: Chronic Assessment and plan: H/H stable at this time. No overt bleeding at this time. Monitor closely. Has required blood transfusion in the past. Current Visit: No Qualifiers: Other causes of anemia: acute posthemorrhagic (3) Chronic anticoagulation Status: Chronic Assessment and plan: Chronically anticoagulated with Coumadin. Subtherapeutic INR on admission, 1.4. Will require lifetime anticoagulant due to presence of mechanical aortic and mitral valve. I will adjust her dosage of Coumadin. Current Visit: No (4) Coronary artery disease Status: Chronic Current Visit: No (5) Dyslipidemia Status: Chronic Assessment and plan: Continue statin. Current Visit: No (6) ESRD on dialysis Status: Chronic Assessment and plan: Routine hemodialysis Sunday, , Sunday. Nephrology has been consulted , and they will follow. Current Visit: No (7) History of COPD Status: Chronic Assessment and plan: Appears stable at this time. Current Visit: No (8) History of coronary artery bypass graft x 1 Status: Chronic Assessment and plan: Status post SVG to RCA in November 2016. No anginal complaint at this time. Continue current plan of care. Current Visit: No (9) History of mitral valve replacement with mechanical valve Status: Chronic Current Visit: No (10) Hx of mechanical aortic valve replacement Status: Chronic Current Visit: No (11) Hypothyroidism Status: Chronic Assessment and plan: Continue Synthroid. Current Visit: No (12) Pulmonary hypertension Status: Chronic Current Visit: No History of Present Illness - Data of Consult Patient: known to practice within the last 3 years Consult date: 04/03/17 Requesting Physician: Yury Munroe - Consult Narrative Reason for consult: CP History of present illness: PRIMARY ARTIST SUSPECT: DR. ESCOBAR Ms. Betancourt is a 61 year old white female with risk factors significant for: Hypertension, hyperlipidemia, diabetes, former tobacco use. Medical history includes COPD, fibromyalgia, chronic pain, CHF, end-stage renal disease with hemodialysis chronic anemia, and GI bleeding with AVMs. Pertinent cardiac history includes coronary artery bypass grafting 1 and mechanical aortic and mitral valve replacement in November 2016. She is chronically anticoagulated with Coumadin. She has had hospital admissions here in January and February 2017 for acute blood loss anemia, evaluation of acute on chronic anemia, and she has had supratherapeutic INR 18.8 previously. Discharged from [facility] on March 10 after GI evaluation without significant source of bleeding found, and Coumadin was restarted upon discharge. She presented to the ER overnight complaining of headache, weakness, and generalized body pains. She reports the pain began in her toes. It worked its way up her legs and into her chest. Reports onset of her complaints was this over the weekend on Sunday after completing routine hemodialysis. EKG and cardiac enzymes benign for ischemic finding. Her symptoms are clearly musculoskeletal in nature. Her chest wall is quite tender to palpation. Admitted per hospital medicine for further observation. Subtherapeutic INR 1.4 on admit, potassium 4.9, magnesium 1.9. H&H 8.8/26.9. Cardiology asked to see to evaluate chest pain. Ms. Betancourt is resting without overt distress noted. Reports she has felt relatively well since discharge from the hospital in February, but since dialysis on Sunday, she has felt generally "bad all over." Reports she was having some midsternal chest pain yesterday, but she also noticed her "chest was sore when I pushed on it." This same chest soreness is reproducible today during physical exam. Reports that Sundays after dialysis are usually her "good days," but this past Sunday she had no energy, had a constant headache, and felt some shortness of breath. Typically uses 2 pillows to sleep with at night, but she uses a hospital bed at home and has had to elevate the head of the bed more than usual since Sunday in order to breathe comfortably. Productive cough with clear sputum. Admits chills, no fever. No melena, abdominal pain, hematemesis, or other overt s/s bleeding. Appetite has been fair. No nausea or vomiting. Some mild dyspnea with conversation. Reports she is having a hard time taking in a deep breath today. BP 145/70. Sinus rhythm, pulse rate 90. EKG with peaked T- waves but no overt ectopy or dysrhythmia. Echocardiogram in January 2017 with normal LV systolic function, EF 60%, and pulmonary hypertension with PA pressure 79 mmHg. Current Medications Hydrocodone Bitart/Acetaminophen ([place] 10-325) 1 tablet PO TID [facility] Amlodipine Besylate (Norvasc) 5 mg PO DAILY [facility] Aspirin () 325 mg PO DAILY [facility] Budesonide/Formoterol Fumarate (Symbicort 160-4.5) 2 puff INH BID [facility] Calcium Acetate (Phoslo) 667 mg PO TID W/MEALS [facility] Carvedilol (Coreg) 6.25 mg PO BID [facility] Cinacalcet (Sensipar) 60 mg PO DAILY W/SUPPER [facility] Clonazepam (Klonopin) 1 mg PO TID [facility] Cyclobenzaprine HCl (Flexeril) 10 mg PO TID [facility] Enoxaparin Sodium (Lovenox) 70 mg SUBCUT Q24H [facility] Last Admin: 04/03/17 02:48 Dose: 70 mg Levetiracetam (Keppra Tab) 500 mg PO BID [facility] Levothyroxine Sodium (Synthroid Tab) 50 mcg PO DAILY@0700 [facility] Last Admin: 04/03/17 05:59 Dose: Not Given Montelukast Sodium (Singulair Tab) 10 mg PO BEDTIME [facility] Olanzapine (Zyprexa Tab) 2.5 mg PO BID [facility] Ondansetron HCl (Zofran Inj) 4 mg IV Q4H PRN PRN Reason: Nausea/Vomiting Pantoprazole Sodium (Protonix Tab) 40 mg PO DAILY [facility] Pravastatin Sodium (Pravachol) 20 mg PO BEDTIME [facility] Ranolazine (Ranexa) 1,000 mg PO BID [facility] Ropinirole HCl (Requip) 0.5 mg PO BEDTIME [facility] Temazepam (Restoril) 15 mg PO BEDTIME [facility] Warfarin Sodium (Coumadin) 7.5 mg PO DAILY@1800 [facility] CC: Bernadine Ivy MD - Home Medications and Allergies Home Medications: Home Medications Medication Instructions Recorded Confirmed Type Budesonide/Formoterol 160-4.5 2 puffs INH BID 03/03/17 04/02/17 History [Symbicort 160-4.5] Cinacalcet HCl [Sensipar] 60 mg PO DAILY 03/03/17 04/02/17 History Cyclobenzaprine [Flexeril] 10 mg PO TID 03/03/17 04/02/17 History HYDROcodone/ACETAMIN 10-325 [[place] 10 mg PO TID 03/03/17 04/02/17 History 10-325] Montelukast Tab [Singulair Tab] 10 mg PO BEDTIME 03/03/17 04/02/17 History OLANZapine [Olanzapine] 2.5 mg PO BID 03/03/17 04/02/17 History Pantoprazole Tab [Protonix Tab] 40 mg PO DAILY 03/03/17 04/02/17 History Pravastatin [Pravachol] 20 mg PO BEDTIME 03/03/17 04/02/17 History Ranolazine [Ranexa] 1,000 mg PO BID 03/03/17 04/02/17 History Ropinirole HCl 2 tablet PO BEDTIME 03/03/17 04/02/17 History Temazepam [Restoril] 15 mg PO BEDTIME 03/03/17 04/02/17 History Warfarin [Coumadin] 2.5 mg PO WE 03/03/17 04/02/17 History Warfarin [Coumadin] 5 mg PO SUMOTUTHFRSA 03/03/17 04/02/17 History clonazePAM [Clonazepam] 1 mg PO TID 03/03/17 04/02/17 History levETIRAcetam [Levetiracetam] 500 mg PO BID 03/03/17 04/02/17 History Calcium Acetate [Phoslo] 667 mg PO TID W/MEALS capsule 03/10/17 04/02/17 Rx Carvedilol [Coreg] 6.25 mg PO BID tablet 03/10/17 04/02/17 Rx Cinacalcet [Sensipar] 60 mg PO DAILY W/SUPPER tablet 03/10/17 04/02/17 Rx Levothyroxine Tab [Synthroid Tab] 50 mcg PO DAILY@0700 tablet 03/10/17 Rx amLODIPine [Norvasc] 5 mg PO DAILY tablet 03/10/17 04/02/17 Rx Allergies/Adverse Reactions: Allergies Allergy/AdvReac Type Severity Reaction Status Date / Time Iodinated Contrast Media - Allergy RASH Verified 01/22/17 01:00 Oral and [Iodinated Contrast Media - IV Dye] Penicillins Allergy ANAPHYLAXIS Verified 01/22/17 01:00 aspirin AdvReac Nausea Verified 01/22/17 01:00 cephalexin [From Keflex] AdvReac Vomiting Verified 01/22/17 01:00 Sulfa (Sulfonamide AdvReac Vomiting Verified 01/22/17 01:00 Antibiotics) - Constitutional Constitutional: Present: chills, fatigue, lethargy, weakness. Absent: fever(s) , frequent falls, stops breathing during sleep, weight gain, weight loss - EENT Eyes: Absent: blurry vision, loss of vision Ears: Absent: decreased hearing Nose, mouth and throat: Absent: dysphagia, epistaxis, nasal congestion, sinus pressure, throat swelling, tongue swelling - Cardiovascular Cardiovascular: Present: chest pain at rest (reproducible), dyspnea, dyspnea on exertion, orthopnea. Absent: diaphoresis, edema, radiating jaw, neck or arm pain, lightheadedness, palpitations, PND - Respiratory Respiratory: Present: cough (nonproductive), dyspnea, dyspnea on exertion. Absent: hemoptysis, change in phlegm color (clear sputum) - Gastrointestinal Gastrointestinal: Present: early satiety. Absent: bloating, diarrhea, dysphagia , heartburn, melena, nausea, vomiting - Genitourinary Genitourinary: Absent: flank pain, hematuria - Musculoskeletal Musculoskeletal: Present: arthralgias, myalgias. Absent: back pain - Neurological Neurological: Present: headache(s). Absent: abnormal speech, confusion, dizziness, syncope, tremor(s) - Psychiatric Psychiatric: Absent: anxiety, confusion, depression - Endocrine Endocrine: Absent: cold intolerance, heat intolerance - Hematologic/Lymphatic Hematologic/Lymphatic: Present: easy bruising. Absent: easy bleeding Medical,Surgical,& Family Hx - Medical History Cardio: History of: Cardiac Dysrhythmia, CAD (CABG x 3 (November 2016)), Hypertension, Valvular Heart Disease (mechanical AVR & MVR), Cardiovascular Problems (impression recent aortic issue.) Psychological: History of: Anxiety Disorders, Depression Neurology: History of: Peripheral Neuropathy (FEET/TOES), Vertigo No history of: Dementia, Seizures Endocrine: History of: Diabetes Mellitus (IDDM) Rheumatology: History of;: Fibromyalgia Respiratory: History of: Asthma, COPD Renal: History of: Dialysis, Renal Failure (ESRD) Gastrointestinal: History of: GERD, Gastrointestinal Bleed Hematology: History of: Anemia, Bleeding Problems (high inr), Clotting Problems (pt states she had a clot "three or four years ago") No history of: Blood Transfusion Reaction Other: History of: Miscellaneous Medical Problems (Sinus surgery) No history of: Anesthesia Reactions - Surgical History Cardiac Surgeries: Sugical HX of: Cardiac Catheterization (NO STENTS PLACE), Cardiac Surgery (mechanical MVR and AVR) Thoracic Surgeries: Patient denies;: Organ Transplant HEENT Surgeries: Surgical HX of: Tonsilectomy & Adenoidectomy Abdominal Surgeries: Surgical HX of: Abdominal Surgery (COLON REMOVED), Cholecystectomy Reproductive Surgeries: Surgical HX of;: Gynecologic Surgery, Hysterectomy - Family History Family History: Reports;: Family Cancer (mother ovarian, sister breast), Family Diabetes (mother), Family Heart Disease (mother -[place]), Family Hypertension ( mother), Family Stroke (mother and brother) - Social History Smoking Status: Former smoker Frequency of Alcohol Use: None Type of Drug Use: None Marital Status: Single Physical Examination Vital Signs Temp Pulse Resp BP Pulse Ox 97.3 F L 100 H 20 145/82 100 04/02/17 20:17 04/02/17 20:17 04/02/17 20:17 04/02/17 20:17 04/02/17 20:17 General: Present: No Apparent Distress, Other HEENT: Present: PERRL, Normocephaly, Mucus Membranes Moist. Absent: Pallor, Oral Lesions Neck: Present: Supple Neck, Midline Trachea, No JVD/HJR, No Masses Cardiac: Present: Reg Rate and Rhythm, No Murmur, Tachycardia, Other ( Appropriate mechanical valve sounds of prosthetic aortic and mitral valves.). Absent: Bradycardia Lungs: Present: Clear Ascult./Percussion, No Wheeze, Rales, Rhonchi. Absent: Oxygen Neuro: Present: Weakness, Grossly Intact. Absent: Numbness, Tingling, Resting Tremor, Essential Tremor Abdomen: Present: Soft, Active Bowel Sounds, No Masses. Absent: Ascites, Tender , Firm Skin: Present: Bruising (right upper arm large area of bruising). Absent: Rash Musculoskeletal: Present: Decreased Range of Motion Extremities: Present: No Clubbing, No Cyanosis, Normal Upper Extr. Pulses, Normal Lower Extr. Pulses, Capillary Refill (normal) Result/EKG - Labs CBC & BMP: 04/02/17 21:05 04/02/17 21:05 Lab Results: I have reviewed the past 24 hour labs Labs: Laboratory Results - last 24 hr 04/02/17 04/02/17 04/02/17 21:05 21:05 21:05 WBC 6.9 RBC 2.83 L Hgb 8.8 L Hct 26.9 L MCV 95.1 MCH 31 MCHC 32.7 RDW 19.3 H Plt Count 204 MPV 10.0 Neut % (Auto) 67.6 Lymph % (Auto) 23.1 [place] % (Auto) 6.5 Eos % (Auto) 1.5 Baso % (Auto) 0.7 Neut # (Auto) 4.7 Lymph # (Auto) 1.6 [place]yer # (Auto) 0.5 Eos # (Auto) 0.1 Baso # (Auto) 0.1 Immature Gran % 0.6 Nucleated RBC % 0.0 Immature Gran # 0.04 Nucleated RBCs # 0.00 INR PT Patient/Control Mix Circ Anticoag PTT Sodium 134 L Potassium 4.9 Chloride 94 L Carbon Dioxide 31 Anion Gap 13.9 BUN 51 H Creatinine 7.50 H GFR Calculation 5 BUN/Creatinine Ratio 6.00 Glucose 124 H POC Glucose Calculated Osmolality 282.2 Calcium 9.5 Magnesium 1.8 Total Bilirubin 1.30 H AST 29 ALT 15 Alkaline Phosphatase 85 Troponin I < 0.015 Total Protein 7.1 Albumin 3.7 Globulin 3.4 Albumin/Globulin Ratio 1.0 L 04/02/17 04/02/17 04/03/17 21:05 23:54 07:42 WBC RBC Hgb Hct MCV MCH MCHC RDW Plt Count MPV Neut % (Auto) Lymph % (Auto) [place] % (Auto) Eos % (Auto) Baso % (Auto) Neut # (Auto) Lymph # (Auto) Dyer # (Auto) Eos # (Auto) Baso # (Auto) Immature Gran % Nucleated RBC % Immature Gran # Nucleated RBCs # INR 1.4 PT Patient/Control Mix 15.3 D Circ Anticoag PTT 30.3 D Sodium Potassium Chloride Carbon Dioxide Anion Gap BUN Creatinine GFR Calculation BUN/Creatinine Ratio Glucose POC Glucose 90 Calculated Osmolality Calcium Magnesium Total Bilirubin AST ALT Alkaline Phosphatase Troponin I 0.019 Total Protein Albumin Globulin Albumin/Globulin Ratio 04/03/17 Unknown WBC RBC Hgb Hct MCV MCH MCHC RDW Plt Count MPV Neut % (Auto) Lymph % (Auto) [place]yer % (Auto) Eos % (Auto) Baso % (Auto) Neut # (Auto) Lymph # (Auto) Dyer # (Auto) Eos # (Auto) Baso # (Auto) Immature Gran % Nucleated RBC % Immature Gran # Nucleated RBCs # INR 1.4 PT Patient/Control Mix 15.1 Circ Anticoag PTT Sodium Potassium Chloride Carbon Dioxide Anion Gap BUN Creatinine GFR Calculation BUN/Creatinine Ratio Glucose POC Glucose Calculated Osmolality Calcium Magnesium Total Bilirubin AST ALT Alkaline Phosphatase Troponin I Total Protein Albumin Globulin Albumin/Globulin Ratio - Diagnostic Findings Procedure: Chest x-ray: image reviewed by me, report reviewed by me - EKG EKG results: interpreted by me, no acute changes IShawn Michael, MD, personally performed the services described in this documentation, ascribed by Jolynn Stephens RN in my presence, and it is both accurate and complete [id number] .
--- NOTE | 2017-04-03 14:47 | Nephrology Consult Note ---
History of Present Illness Chief complaint: End-stage renal disease History of present illness: Ms. Betancourt is a 61 year old female history of end-stage renal disease due to hypertension diabetes has history of coronary artery disease and had heart surgery earlier this year. She has had several hospitalizations due to chest pain and anemia due to Coumadin toxicity as well as GI bleed. She presented with a one-day history of increased substernal chest pain associated with headache symptoms. Symptoms do not improve on yesterday. She thought maybe her potassium was elevated or her volume status was high. Metabolically she has been stable. INR is stable. Hematocrit is 26.9. Nephrology is been consulted for renal issues. At present no chest pain. She does still describes headache symptoms. Home Medications Medication Instructions Recorded Confirmed Type Budesonide/Formoterol 160-4.5 2 puffs INH BID 03/03/17 04/02/17 History [Symbicort 160-4.5] Cinacalcet HCl [Sensipar] 60 mg PO DAILY 03/03/17 04/02/17 History Cyclobenzaprine [Flexeril] 10 mg PO TID 03/03/17 04/02/17 History HYDROcodone/ACETAMIN 10-325 [[place] 10 mg PO TID 03/03/17 04/02/17 History 10-325] Montelukast Tab [Singulair Tab] 10 mg PO BEDTIME 03/03/17 04/02/17 History OLANZapine [Olanzapine] 2.5 mg PO BID 03/03/17 04/02/17 History Pantoprazole Tab [Protonix Tab] 40 mg PO DAILY 03/03/17 04/02/17 History Pravastatin [Pravachol] 20 mg PO BEDTIME 03/03/17 04/02/17 History Ranolazine [Ranexa] 1,000 mg PO BID 03/03/17 04/02/17 History Ropinirole HCl 2 tablet PO BEDTIME 03/03/17 04/02/17 History Temazepam [Restoril] 15 mg PO BEDTIME 03/03/17 04/02/17 History Warfarin [Coumadin] 2.5 mg PO WE 03/03/17 04/02/17 History Warfarin [Coumadin] 5 mg PO SUMOTUTHFRSA 03/03/17 04/02/17 History clonazePAM [Clonazepam] 1 mg PO TID 03/03/17 04/02/17 History levETIRAcetam [Levetiracetam] 500 mg PO BID 03/03/17 04/02/17 History Calcium Acetate [Phoslo] 667 mg PO TID W/MEALS capsule 03/10/17 04/02/17 Rx Carvedilol [Coreg] 6.25 mg PO BID tablet 03/10/17 04/02/17 Rx Cinacalcet [Sensipar] 60 mg PO DAILY W/SUPPER tablet 03/10/17 04/02/17 Rx Levothyroxine Tab [Synthroid Tab] 50 mcg PO DAILY@0700 tablet 03/10/17 Rx amLODIPine [Norvasc] 5 mg PO DAILY tablet 03/10/17 04/02/17 Rx Allergies Allergy/AdvReac Type Severity Reaction Status Date / Time Iodinated Contrast Media - Allergy RASH Verified 01/22/17 01:00 Oral and [Iodinated Contrast Media - IV Dye] Penicillins Allergy ANAPHYLAXIS Verified 01/22/17 01:00 aspirin AdvReac Nausea Verified 01/22/17 01:00 cephalexin [From Keflex] AdvReac Vomiting Verified 01/22/17 01:00 Sulfa (Sulfonamide AdvReac Vomiting Verified 01/22/17 01:00 Antibiotics) Medical,Surgical,& Family Hx - Medical History Cardio: History of: Cardiac Dysrhythmia, CAD (CABG x 3 (November 2016)), Hypertension, Valvular Heart Disease (mechanical AVR & MVR), Cardiovascular Problems (impression recent aortic issue.) Psychological: History of: Anxiety Disorders, Depression Neurology: History of: Peripheral Neuropathy (FEET/TOES), Vertigo No history of: Dementia, Seizures Endocrine: History of: Diabetes Mellitus (IDDM) Rheumatology: History of;: Fibromyalgia Respiratory: History of: Asthma, COPD Renal: History of: Dialysis, Renal Failure (ESRD) Gastrointestinal: History of: GERD, Gastrointestinal Bleed Hematology: History of: Anemia, Bleeding Problems (high inr), Clotting Problems (pt states she had a clot "three or four years ago") No history of: Blood Transfusion Reaction Other: History of: Miscellaneous Medical Problems (Sinus surgery) No history of: Anesthesia Reactions - Surgical History Cardiac Surgeries: Sugical HX of: Cardiac Catheterization (NO STENTS PLACE), Cardiac Surgery (mechanical MVR and AVR) Thoracic Surgeries: Patient denies;: Organ Transplant HEENT Surgeries: Surgical HX of: Tonsilectomy & Adenoidectomy Abdominal Surgeries: Surgical HX of: Abdominal Surgery (COLON REMOVED), Cholecystectomy Reproductive Surgeries: Surgical HX of;: Gynecologic Surgery, Hysterectomy - Family History Family History: Reports;: Family Cancer (mother ovarian, sister breast), Family Diabetes (mother), Family Heart Disease (mother -[place]), Family Hypertension ( mother), Family Stroke (mother and brother) - Social History Smoking Status: Former smoker Frequency of Alcohol Use: None Type of Drug Use: None Review of Systems Constitutional: fatigue Respiratory: no cough, no dyspnea Gastrointestinal: no abdominal pain, no bloating Exam - Vital Signs Vital signs: Period Temp Pulse Resp BP Sys/Vargas Pulse Ox Last 24 Hr 96 F-97.5 F 82-103 12-20 138-161/63-82 94-100 - General Appearance General appearance: well-developed, well-nourished EENT: ATNC Neck: supple Respiratory: clear Cardiology: regular rate, regular rhythm Gastrointestinal: normoactive bowel sounds, no tenderness Integumentary: no rash Neurologic: alert and oriented x3 Musculoskeletal: no clubbing Psychiatric: mood/affect appropriate Results - Labs CBC & BMP: 04/02/17 21:05 04/02/17 21:05 Assessment and Plan (1) Hx of mechanical aortic valve replacement Status: Chronic Current Visit: No (2) Fatigue Status: Chronic Current Visit: No (3) History of mitral valve replacement with mechanical valve Status: Chronic Current Visit: No (4) Pulmonary hypertension Status: Chronic Current Visit: No (5) Atypical chest pain Status: Acute Assessment and plan: This appears to be resolved. Current Visit: Yes (6) End stage renal disease Status: Chronic Assessment and plan: Continue with scheduled hemodialysis. Current Visit: Yes
--- NOTE | 2017-04-03 14:51 | Dialysis Note ---
Dialysis Note - Dialysis Note Patient seen on dialysis. She is tolerating the procedure. Blood pressure 141/ 63. Cardiovascular regular rate. Lungs are clear to auscultation.
--- NOTE | 2017-04-03 15:47 | Hospitalist Progress Note ---
<Carlos Reddy - Last Filed: 04/03/17 15:43> Assessment and Plan - Time spent with patient Time spent with patient: Less than 30 minutes (1) Atypical chest pain Status: Acute Assessment and plan: This appears to have resolved. Troponin on admission 0.019. Cardiology is following. Will follow their recommendations. Current Visit: Yes (2) Subtherapeutic international normalized ratio (INR) Status: Acute Assessment and plan: Continue coumadin and lovenox. Monitor INR. Current Visit: Yes (3) ESRD on dialysis Status: Chronic Assessment and plan: Creatinine today is 7.50. Patient is scheduled to continue hemodialysis as an inpatient. Nephrology is following. Current Visit: No (4) Hx of mechanical aortic valve replacement Status: Chronic Current Visit: No (5) Status post mechanical aortic valve replacement Status: Chronic Current Visit: No Hospitalist: Subjective Interval history: Patient was seen and examined today on telemetry. She was admitted overnight for with complaints of atypical chest pain. On exam, she reports no ongoing chest pain but does confirm continued shortness of breath. She does have a history of CAD with CABG and mechanical aortic and mitral valve replacement in November of this year. She is on warfarin but continues to be subtherapeutic. Cardiology is following. We will follow their recommendations for this chest pain. Patient is also a hemodialysis patient. Nephrology has been consulted and will continue with scheduled hemodialysis while hospitalized. Patient reports no acute events overnight. Exam - Constitutional Vitals: Period Temp Pulse Resp BP Sys/Vargas Pulse Ox Last 24 Hr 96 F-97.5 F 82-103 12-20 138-161/63-82 94-100 Exam: General appearance: overweight, no acute distress - Head Head exam: Present: normocephalic, atraumatic - Eye Eye exam: Present: EOMI. Absent: conjunctival injection, nystagmus Pupils: Present: NONI, normal accommodation - ENT ENT exam: Present: normal exam, normal external ear exam - Neck Neck exam: Present: normal inspection. Absent: lymphadenopathy, tenderness, thyromegaly - Respiratory Respiratory exam: Present: clear to auscultation bilaterally. Absent: rales, rhonchi, wheezes - Cardiovascular Cardiovascular exam: Present: tachycardia, regular rhythm. Absent: carotid bruit, gallop, rubs - GI/Abdominal GI/Abdominal exam: Present: normal bowel sounds, soft, nontender. Absent: ascites, distended, mass - Extremities Exam Extremities exam: Present: normal inspection, normal capillary refill. Absent: edema - Back Exam Back exam: Absent: CVA tenderness (L), CVA tenderness (R) - Neurological Exam Neurological exam: Present: alert, oriented X3, CN II-XII intact, normal reflexes - Psychiatric Psychiatric exam: Present: normal affect, normal mood - Skin Skin exam: Present: normal color, warm, dry Results - Labs CBC & BMP: 04/02/17 21:05 04/02/17 21:05 Lab Results: I have reviewed the past 24 hour labs <Bernadine Ivy - Last Filed: 04/03/17 17:41> Assessment and Plan (1) ESRD on dialysis Status: Chronic Assessment and plan: dialysis today by dr. Becerra Current Visit: No (2) Status post mechanical aortic valve replacement Status: Chronic Current Visit: No (3) History of mitral valve replacement with mechanical valve Status: Chronic Assessment and plan: cont lovenox and coumadin load Current Visit: No (4) Pulmonary hypertension Status: Chronic Assessment and plan: severe pulmonary htn, pap of 79 Current Visit: No Hospitalist: Subjective Interval history: Patient seen and examined. Progress note reviewed and edited. Patient has a mechanical aortic value and is subtherapeutic on coumadin. Patient was dialyzed today Exam - Constitutional Vitals: Period Temp Pulse Resp BP Sys/Vargas Pulse Ox Last 24 Hr 96 F-97.5 F 82-103 12-20 138-161/63-82 94-100 Exam: no head, eye, ent, neck or skin or back exam performed Results - Labs CBC & BMP: 04/02/17 21:05 04/02/17 21:05
[2017-04-03] MEDS ORDERED: KETOROLAC 30 MG/1 ML VIAL IV ONE (16:19)
[2017-04-03] MEDS: CINACALCET 30 MG TABLET PO SCH (17:26)
[2017-04-03] MEDS ORDERED: WARFARIN 7.5 MG TABLET PO SCH (18:00)
[2017-04-03] MEDS ORDERED: rOPINIRole 0.25 MG TABLET PO SCH (21:00)
[2017-04-03] MEDS ORDERED: MONTELUKAST 10 MG TABLET PO SCH (21:00)
[2017-04-03] MEDS ORDERED: PRAVASTATIN 20 MG TABLET PO SCH (21:00)
[2017-04-03] MEDS ORDERED: TEMAZEPAM 15 MG CAPSULE PO SCH (21:00)
[2017-04-04 05:09] LABS: INR 1.7; PT Patient Result 19.1 SECS
[2017-04-04 05:10] LABS: Basophils % 0.5 % (0.0-0.8); Eosinophils # 0.1 10*3/uL (0.0-0.87); Eosinophils % 2.2 % (0.00-10.9); Hematocrit 22.7 VOL% (35.7-47.0); Immature Granulocytes % 0.5 %; Immature Granulocytes Absolute 0.03 #; Lymphocytes # 1.4 10*3/uL (1.4-4.0); Mean Corpuscular HGB Conc 32.2 GM/DL (32-36); Mean Corpuscular Hemoglobin 32 PG (27-34); Mean Corpuscular Volume 99.1 FL (87-102); Mean Platelet Volume 10.3 FL (9.6-12.0); Monocytes # 0.4 10*3/uL (0.11-0.8); Monocytes % 7.2 % (1.7-12.7); NRBC # 0.02 10*3/uL; Neutrophils % 66.6 % (38.7-73.9); Platelet Count 208 T/CUMM (130-400); Red Blood Count 2.29 MC/CUMM (3.8-5.5); Red Cell Distribution Width 19.7 % (9.3-17.3)
[2017-04-04 05:36] LABS: Calcium 8.8 MG/DL (8.5-10.1); Magnesium 2.2 MG/DL (1.8-2.4); Osmolality,Calculated 280.4 MOS/KG (273-304); Potassium 4.9 MMOL/L (3.5-5.1)
[2017-04-04] MEDS: LEVOTHYROXINE 50 MCG TABLET PO SCH (06:12)
[2017-04-04 06:24] LABS: Hemoglobin 7.3 GM/DL (12.0-16.0)
--- NOTE | 2017-04-04 08:35 | Nephrology Progress Note ---
Nephrology - PN: Subj Interval history: PT denies SOB/pain. Headache for 6 days minimally helped with tylenol per pt. No problems with dialysis yesterday. Exam (PN)-Nephrology - Vital Signs Vital signs: Period Temp Pulse Resp BP Sys/Vargas Pulse Ox Last 24 Hr 96.1 F-97.1 F 74-98 16-20 86-141/44-63 95-99 - General Appearance General appearance: well-developed, chronically ill EENT: ATNC, PERRL, mucous membranes dry, hearing intact, vision intact Neck: no JVD, no thyromegaly Respiratory: no kyphosis, clear Cardiology: no murmurs, no rub, no edema Gastrointestinal: normoactive bowel sounds, no tenderness Integumentary: no rash, warm and dry Neurologic: no focal deficit, no asterixis, alert and oriented x3 Musculoskeletal: no deformities, no erythema Psychiatric: mood/affect appropriate, cooperative - Lab 04/04/17 06:09 04/04/17 03:47 Most recent lab results Calcium 8.8 MG/DL (8.5-10.1) 04/04/17 03:47 Magnesium 2.2 MG/DL (1.8-2.4) 04/04/17 03:47 Assessment and Plan (1) ESRD on dialysis Problem details: No indication for HD at this time. Status: Chronic Assessment and plan: Next routine CHD scheduled for tomorrow. Current Visit: No
[2017-04-04] MEDS: CALCIUM ACETATE 667 MG CAPSULE PO SCH ×3 (08:52→17:28)
[2017-04-04] MEDS: ASPIRIN EC 325 MG TABLET PO SCH (08:52)
[2017-04-04] MEDS: levETIRAcetam 500 MG TABLET PO SCH (08:53)
[2017-04-04] MEDS: CYCLOBENZAPRINE 10 MG TABLET PO SCH ×2 (08:53→15:15)
[2017-04-04] MEDS: PANTOPRAZOLE 40 MG TABLET PO SCH (08:54)
[2017-04-04] MEDS: RANOLAZINE 500 MG TABLET PO SCH (08:54)
[2017-04-04] MEDS: clonazePAM 0.5 MG TABLET PO SCH ×2 (08:57→15:15)
[2017-04-04] MEDS: amLODIPine 5 MG TABLET PO SCH (09:00)
[2017-04-04] MEDS: CARVEDILOL 6.25 MG TABLET PO SCH (09:20)
[2017-04-04] MEDS ORDERED: SODIUM CHLORIDE 0.9% 250 ML IV PRN (09:33)
--- NOTE | 2017-04-04 09:35 | Discharge Summary ---
Hospital Course - Hospital Course Hospital Course: 61-year-old female with a history of end-stage renal disease and mitral and aortic valve replacement admitted for chest pain. Dr. Escobar was consulted and does not feel this is cardiac in nature. Patient was subtherapeutic on her Coumadin when she arrived we have been giving her extra doses of 7.5 for 2 nights trying to get her therapeutic. She is on subcu Lovenox at this time. Patient's hemoglobin dropped overnight from 8.8-7.3. Coumadin give her 1 unit of packed red blood cells. Dr. Luke is seen her in the past and reports that she has a history of small bowel AVMs. Because she is has mechanical valve she has to be on Coumadin. I have consulted Dr. Luke to see if he wants to do any intervention. Patient was dialyzed yesterday. Her blood pressure was low after dialysis. We have lowered the dose on her Coreg to 3.125. I would not discharge her on aspirin as it will cause more bleeding. she will be able to be discharged home with home health and home PT. if okay with Dr. Luke - Time spent with patient Time with patient DS: Greater than 30 minutes (40 min) Diagnosis - Discharge Diagnosis (1) ESRD on dialysis Status: Chronic (2) Status post mechanical aortic valve replacement Status: Chronic (3) History of mitral valve replacement with mechanical valve Status: Chronic (4) Pulmonary hypertension Status: Chronic Discharge Plan - Discharge Data Disposition: Home Health Service Condition at Discharge: Stable Discharge Diet: heart healthy, low fat, low cholesterol, low salt diet Activity: resume usual activities as tolerated Hygiene: no restrictions Weight Bearing at Discharge: full weight bearing - Discharge Medications Continue Ropinirole HCl 2 tablet PO BEDTIME OLANZapine [Olanzapine] 2.5 mg PO BID Cinacalcet HCl [Sensipar] 60 mg PO DAILY Ranolazine [Ranexa] 1,000 mg PO BID Montelukast Tab [Singulair Tab] 10 mg PO BEDTIME Temazepam [Restoril] 15 mg PO BEDTIME Pantoprazole Tab [Protonix Tab] 40 mg PO DAILY HYDROcodone/ACETAMIN 10-325 [Locke 10-325] 10 mg PO TID Cyclobenzaprine [Flexeril] 10 mg PO TID Warfarin [Coumadin] 2.5 mg PO WE Calcium Acetate [Phoslo] 667 mg PO TID W/MEALS capsule Cinacalcet [Sensipar] 60 mg PO DAILY W/SUPPER tablet amLODIPine [Norvasc] 5 mg PO DAILY tablet Carvedilol [Coreg] 3.125 mg PO BID #0 tablet levETIRAcetam [Levetiracetam] 500 mg PO BID clonazePAM [Clonazepam] 1 mg PO TID Warfarin [Coumadin] 5 mg PO SUMOTUTHFRSA Budesonide/Formoterol 160-4.5 [Symbicort 160-4.5] 2 puffs INH BID Pravastatin [Pravachol] 20 mg PO BEDTIME Levothyroxine Tab [Synthroid Tab] 50 mcg PO DAILY@0700 tablet - Follow Up or Referral Follow Up: Darion Luke MD [Physician] - [address] Yeison [Other] - 1 Week - Forms/Instructions Additional Discharge Instructions: will give one unit PRBC and if GI does not want to do procedure, may go home. INR and hgb daily through home health until INR between 2-3. then I would do weekly inr and hgb. Dialysis as scheduled Exam - Constitutional Vitals: Period Temp Pulse Resp BP Sys/Vargas Pulse Ox Last 24 Hr 96.1 F-97.1 F 74-98 16-20 86-141/44-63 95-99 General appearance: normal weight, no acute distress - Respiratory Respiratory exam: Present: clear to auscultation bilaterally. Absent: rhonchi, wheezes - Cardiovascular Cardiovascular exam: Present: regular rate and rhythm, systolic murmur - GI/Abdominal GI/Abdominal exam: Present: normal bowel sounds, soft. Absent: tenderness - Extremities Exam Extremities exam: Present: normal capillary refill. Absent: edema - Neurological Exam Neurological exam: Present: alert, oriented X3 - Psychiatric Psychiatric exam: Present: depressed, flat affect Discharge Results Procedures and tests throughout hospitalization: Pending Orders 04/05/17 04:00 BMP w/ Mg [Basic Metabolic Panel w/Mg] IN AM Comp Blood Count Auto Diff IN AM Prothrombin Time INR IN AM Labs on day of discharge: Labs from last 24 hours 04/04/17 04/04/17 04/04/17 08:19 06:09 03:47 WBC 6.0 RBC 2.29 L Hgb 7.3 L Hct 22.7 L MCV 99.1 MCH 32 MCHC 32.2 RDW 19.7 H Plt Count 208 MPV 10.3 Neut % (Auto) 66.6 Lymph % (Auto) 23.0 Harding % (Auto) 7.2 Eos % (Auto) 2.2 Baso % (Auto) 0.5 Neut # (Auto) 4.0 Lymph # (Auto) 1.4 Harding # (Auto) 0.4 Eos # (Auto) 0.1 Baso # (Auto) 0.0 Immature Gran % 0.5 Nucleated RBC % 0.3 Immature Gran # 0.03 Nucleated RBCs # 0.02 INR PT Patient/Control Mix Sodium 140 Potassium 4.9 Chloride 103 Carbon Dioxide 31 Anion Gap 10.9 BUN 22 H Creatinine 4.20 H GFR Calculation 11 BUN/Creatinine Ratio 5.00 L Glucose 82 POC Glucose 108 H Calculated Osmolality 280.4 Calcium 8.8 Magnesium 2.2 04/04/17 04/03/17 04/03/17 03:47 19:08 17:23 WBC RBC Hgb Hct MCV MCH MCHC RDW Plt Count MPV Neut % (Auto) Lymph % (Auto) Harding % (Auto) Eos % (Auto) Baso % (Auto) Neut # (Auto) Lymph # (Auto) Harding # (Auto) Eos # (Auto) Baso # (Auto) Immature Gran % Nucleated RBC % Immature Gran # Nucleated RBCs # INR 1.7 PT Patient/Control Mix 19.1 D Sodium Potassium Chloride Carbon Dioxide Anion Gap BUN Creatinine GFR Calculation BUN/Creatinine Ratio Glucose POC Glucose 148 H 131 H Calculated Osmolality Calcium Magnesium 04/03/17 12:27 WBC RBC Hgb Hct MCV MCH MCHC RDW Plt Count MPV Neut % (Auto) Lymph % (Auto) Harding % (Auto) Eos % (Auto) Baso % (Auto) Neut # (Auto) Lymph # (Auto) Harding # (Auto) Eos # (Auto) Baso # (Auto) Immature Gran % Nucleated RBC % Immature Gran # Nucleated RBCs # INR PT Patient/Control Mix Sodium Potassium Chloride Carbon Dioxide Anion Gap BUN Creatinine GFR Calculation BUN/Creatinine Ratio Glucose POC Glucose 101 Calculated Osmolality Calcium Magnesium DS: Provider Date of admission: 04/03/17 01:01 Primary care physician: . No PCP Attending physician on admission: Yury Munroe MD Consults: 04/03/17 01:06 Consult to Physician [CONS] Routine Comment: patient of trisha Consulting Provider: Cardiology - [facility] Consult to Specialist Group: Cardiology Person Notified: zoe Date Notified: 04/03/17 Time Notified: 08:55 04/03/17 01:45 Consult to Physician [CONS] Routine Comment: patient does not want to see Dr López Consulting Provider: Gurpreet Becerra Jr. Consult to Specialist Group: Nephrology When should Consulting Provider be notified: In am Person Notified: Lamar Date Notified: 04/03/17 Time Notified: 08:50 04/03/17 02:24 Consult to Dietitian [CONS] Routine Reason for Dietitian: Dietary Consult 04/04/17 09:23 Consult to Case Mgmt/Social Srvs [CONS] Routine Reason for Case Mgmt/Social Srvs: Home Health Consult Comment: approval of lovenox 70 mg for two days, pt Discharging clinician: Bernadine Ivy MD
[2017-04-04] MEDS: OLANZapine 2.5 MG TABLET PO SCH (09:43)
[2017-04-04] MEDS: BUDESONIDE/FORMOTEROL 160-4.5 INHALER 6 GM INH SCH (09:44)
--- NOTE | 2017-04-04 10:32 | Gastrointestinal Consult Note ---
<Mariella Reyna - Last Filed: 04/04/17 10:20> Assessment and Plan (1) Anemia Status: Acute Assessment and plan: 04/04-Drop in HH from admission at 05/12 to 04/07 with dark stools (on iron therapy ). Hx of AVMs on prior small bowel endoscopy pill camera. Recent workup for anemia as noted below. On chronic anticoagulation for valve replacement. Check stools for occult blood. Dr Luke to see and add further plan and addendum to follow by Dr Luke. Current Visit: Yes History of Present Illness Chief complaint: Anemia History of present illness: Ms. Betancourt is a 61 year old female who was admitted to the hospital and yesterday with onset of chest pain. Patient has a prior history of end-stage renal disease with dialysis 3 times a week, aortic and mitral valve replacment on chronic anticoagulation. Pt states that she had a sudden onset of midsternal chest pain that radiated to her left chest wall that began suddenly and was not precipitated by any known factors. She states she has had a dry cough over the last several days and when she would touch her chest, she could mimic the pain at times. She denies any other associated symptoms with the pain. She denies any nausea or vomiting. She was found on admission to have changes in her EKG consistent with hyperkalemia however admitted K+ noted at 4.9. On yesterday she had an HH of 05/12 which has trended down today at 04/07. She states she had dark stools but has had these for a long time and is on iron therapy. She denies any hematochezia. She denies any recent weight loss. INR on admission was 1.7. 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 She has had recent endoscopy with EGD on 03/05 with no abnormal findings and on 03/07 had flex sigmoid with no acute findings. Unable to locate patients last colonoscopy records. Home Medications Medication Instructions Recorded Confirmed Type Budesonide/Formoterol 160-4.5 2 puffs INH BID 03/03/17 04/02/17 History [Symbicort 160-4.5] Cinacalcet HCl [Sensipar] 60 mg PO DAILY 03/03/17 04/02/17 History Cyclobenzaprine [Flexeril] 10 mg PO TID 03/03/17 04/02/17 History HYDROcodone/ACETAMIN 10-325 [Jamieson 10 mg PO TID 03/03/17 04/02/17 History 10-325] Montelukast Tab [Singulair Tab] 10 mg PO BEDTIME 03/03/17 04/02/17 History OLANZapine [Olanzapine] 2.5 mg PO BID 03/03/17 04/02/17 History Pantoprazole Tab [Protonix Tab] 40 mg PO DAILY 03/03/17 04/02/17 History Pravastatin [Pravachol] 20 mg PO BEDTIME 03/03/17 04/02/17 History Ranolazine [Ranexa] 1,000 mg PO BID 03/03/17 04/02/17 History Ropinirole HCl 2 tablet PO BEDTIME 03/03/17 04/02/17 History Temazepam [Restoril] 15 mg PO BEDTIME 03/03/17 04/02/17 History Warfarin [Coumadin] 2.5 mg PO WE 03/03/17 04/02/17 History Warfarin [Coumadin] 5 mg PO SUMOTUTHFRSA 03/03/17 04/02/17 History clonazePAM [Clonazepam] 1 mg PO TID 03/03/17 04/02/17 History levETIRAcetam [Levetiracetam] 500 mg PO BID 03/03/17 04/02/17 History Calcium Acetate [Phoslo] 667 mg PO TID W/MEALS capsule 03/10/17 04/02/17 Rx Cinacalcet [Sensipar] 60 mg PO DAILY W/SUPPER tablet 03/10/17 04/02/17 Rx Levothyroxine Tab [Synthroid Tab] 50 mcg PO DAILY@0700 tablet 03/10/17 Rx amLODIPine [Norvasc] 5 mg PO DAILY tablet 03/10/17 04/02/17 Rx Carvedilol [Coreg] 3.125 mg PO BID #0 tablet 04/04/17 04/02/17 Rx Allergies Allergy/AdvReac Type Severity Reaction Status Date / Time Iodinated Contrast Media - Allergy RASH Verified 01/22/17 01:00 Oral and [Iodinated Contrast Media - IV Dye] Penicillins Allergy ANAPHYLAXIS Verified 01/22/17 01:00 aspirin AdvReac Nausea Verified 01/22/17 01:00 cephalexin [From Keflex] AdvReac Vomiting Verified 01/22/17 01:00 Sulfa (Sulfonamide AdvReac Vomiting Verified 01/22/17 01:00 Antibiotics) Medical,Surgical,& Family Hx - Medical History Cardio: History of: Cardiac Dysrhythmia, CAD (CABG x 3 (November 2016)), Hypertension, Valvular Heart Disease (mechanical AVR & MVR), Cardiovascular Problems (impression recent aortic issue.) Psychological: History of: Anxiety Disorders, Depression Neurology: History of: Peripheral Neuropathy (FEET/TOES), Vertigo No history of: Dementia, Seizures Endocrine: History of: Diabetes Mellitus (IDDM) Rheumatology: History of;: Fibromyalgia Respiratory: History of: Asthma, COPD Renal: History of: Dialysis, Renal Failure (ESRD) Gastrointestinal: History of: GERD, Gastrointestinal Bleed Hematology: History of: Anemia, Bleeding Problems (high inr), Clotting Problems (pt states she had a clot "three or four years ago") No history of: Blood Transfusion Reaction Other: History of: Miscellaneous Medical Problems (Sinus surgery) No history of: Anesthesia Reactions - Surgical History Cardiac Surgeries: Sugical HX of: Cardiac Catheterization (NO STENTS PLACE), Cardiac Surgery (mechanical MVR and AVR) Thoracic Surgeries: Patient denies;: Organ Transplant HEENT Surgeries: Surgical HX of: Tonsilectomy & Adenoidectomy Abdominal Surgeries: Surgical HX of: Abdominal Surgery (COLON REMOVED), Cholecystectomy Reproductive Surgeries: Surgical HX of;: Gynecologic Surgery, Hysterectomy - Family History Family History: Reports;: Family Cancer (mother ovarian, sister breast), Family Diabetes (mother), Family Heart Disease (mother -MA), Family Hypertension ( mother), Family Stroke (mother and brother) - Social History Smoking Status: Former smoker Frequency of Alcohol Use: None Type of Drug Use: None 12 point system: reviewed and no additional remarkable complaints except as stated - Constitutional Constitutional: Present: as per HPI - EENT Eyes: Present: as per HPI Ears: Present: as per HPI Nose, mouth and throat: Present: as per HPI - Cardiovascular Cardiovascular: Present: as per HPI, chest pain at rest - Respiratory Respiratory: Present: as per HPI - Gastrointestinal Gastrointestinal: Present: as per HPI - Genitourinary Genitourinary: Present: as per HPI - Musculoskeletal Musculoskeletal: Present: as per HPI - Neurological Neurological: Present: as per HPI - Psychiatric Psychiatric: Present: as per HPI - Endocrine Endocrine: Present: as per HPI - Hematologic/Lymphatic Hematologic/Lymphatic: Present: as per HPI Exam - Constitutional Vitals: Period Temp Pulse Resp BP Sys/Vargas Pulse Ox Last 24 Hr 96.1 F-97.1 F 74-98 16-20 86-141/44-63 95-99 General appearance: normal weight, no acute distress - Head Head exam: Present: normal inspection, normocephalic - Eye Eye exam: Present: other (lids and conjunctiva unremarkable). Absent: scleral icterus - ENT ENT exam: Present: normal exam, normal oropharynx (lids and conjunctiva unremarkable) - Neck Neck exam: Present: normal inspection - Respiratory Respiratory exam: Present: clear to auscultation bilaterally. Absent: rales, rhonchi, wheezes - Cardiovascular Cardiovascular exam: Present: regular rate and rhythm. Absent: diastolic murmur , JVD, systolic murmur - GI/Abdominal GI/Abdominal exam: Present: normal bowel sounds, soft. Absent: ascites, distended, mass, organomegaly, tenderness - Extremities Exam Extremities exam: Present: normal inspection, full ROM - Back Exam Back exam: Present: normal inspection - Neurological Exam Neurological exam: Present: alert, oriented X3 - Psychiatric Psychiatric exam: Present: normal affect, normal mood - Skin Skin exam: Present: normal color, warm, dry Results - Labs CBC & BMP: 04/04/17 06:09 04/04/17 03:47 Lab Results: I have reviewed the past 24 hour labs Specialty Discharge - Follow Up or Referrals Follow up with: Dr. Yeison [Other] - 1 Week Darion Luke MD [Physician] - 2 Weeks <Darion Luke - Last Filed: 04/04/17 14:16> History of Present Illness History of present illness: Ms. Betancourt is a 61 year old female Exam - Constitutional Vitals: Period Temp Pulse Resp BP Sys/Vargas Pulse Ox Last 24 Hr 84 F-97.1 F 74-96 12-20 86-124/44-71 14-99 Results - Labs CBC & BMP: 04/04/17 06:09 04/04/17 03:47
[2017-04-04 15:17] VITALS: BP 120/67
[2017-04-04 16:15] LABS: Hematocrit 25.2 VOL% (35.7-47.0); Hemoglobin 8.1 GM/DL (12.0-16.0)
[2017-04-04] MEDS: CINACALCET 30 MG TABLET PO SCH (17:28)
[2017-04-04] MEDS ORDERED: WARFARIN 5 MG TABLET PO SCH (18:00)
== END 2017-04-04 19:18 | disposition home health service (06) ==
LOC: N.ED 20:15 → SUATTDRO 04-03 01:01 → N.EDINP 04-03 01:01 → INTOOBSV 04-03 01:01 → N.TELES 04-03 01:38
PROVIDERS: ADMIT Internal Medicine; ATTEND Internal Medicine

== ENCOUNTER 2017-04-24 08:31 | Inpatient (IN) ==
--- NOTE | 2017-04-24 09:11 | XRay Report ---
XR chest 1V portable Indication: SOB Comparison: Chest x-ray dated April 02, 2017 Technique: Single frontal view of the chest. Findings: Continued cardiomegaly status post sternotomy/cardiac valve replacement. Continued prominence of bilateral interstitial lung markings. Mildly progressed right basilar consolidation. Visualized osseous and surrounding soft tissue structures appear grossly unchanged. IMPRESSION: As above. PROCEDURE INTERPRETED AT [facility] DEPARTMENT OF RADIOLOGY Final Report Signed by: Dr Delbert Delgado
[2017-04-24] MEDS ORDERED: LEVOFLOXACIN INJ 500 MG in PREMIX 1 EACH IV STA (09:22)
--- NOTE | 2017-04-24 09:22 | Emergency Department Note ---
Alpesh Crow Brooke, am scribing for, and in the presence of, Adrian Delong MD 09:17 . Sindi Crow James D, MD, personally performed the services described in this documentation, ascribed by Vale Betts in my presence, and it is both accurate and complete 919 . Arrival - Arrival Chief Complaint: Shortness of Breath Stated Complaint: can't breath;possibility of a blood transfusion ED Nursing Triage Note: PATIENT TO TRIAGE VIA WHEELCHAIR WITH C/O SHORTNESS OF BREATH FOR 3 DAYS. PATIENT STATES SHE JUST CAN'T BREATH. PATIENT STATES SHE WENT TO [facility] SUN AND SUNDAY AND THAT DID NOT HELP. SHE STATES SHE WOKE UP THIS MORNING AND IS HAVING TROUBLE WALKING WELL. Mode of Arrival: Wheelchair Limitations: No Limitations Source: Patient, RN Notes Reviewed Time Seen by Provider: 04/24/17 08:53 - History of Present Illness HPI Narrative: Patient is a 61 year old female who presents to the ED with c/o shortness of breath that started Sunday evening. The shortness of breath is worsened with exertion and when laying flat. Patient says she had dialysis on Sunday and Sunday. She had an appointment with Dr. Escobar, , so they switched her dialysis treatment to Sunday. She says she did not have any shortness of breath on . Patient has a nonproductive cough and chest pain. She says the chest pain is located in the center of her chest but does not radiate anywhere. Patient says she had melena, last night, and there was bright red blood in her stool this morning. She does not have any lower extremity edema but says her legs do hurt. Patient states "Dr. Escobar has told me that I may need a blood transfusion when I get weak and short of breath, like this." She has PMHx of cardiac dysrhythmia, CAD, HTN, mechanical AVR and MVR, depression, vertigo, peripheral neuropathy, IDDM, fibromyalgia, asthma, COPD, renal failure , dialysis, GI bleed, GERD, anemia, and blood clots. Patient has an appointment with Dr. Luke, tomorrow. 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 She no longer has a gallbladder, appendix, or ovaries. She quit smoking on November 29, 2016 and used to smoke a pack of cigarettes a day for the past 40 years. She does have home oxygen. Onset (ago): day(s) (3) Allergies/Adverse Reactions: Allergies Allergy/AdvReac Type Severity Reaction Status Date / Time Iodinated Contrast Media - Allergy RASH Verified 01/22/17 01:00 Oral and [Iodinated Contrast Media - IV Dye] Penicillins Allergy ANAPHYLAXIS Verified 01/22/17 01:00 aspirin AdvReac Nausea Verified 01/22/17 01:00 cephalexin [From Keflex] AdvReac Vomiting Verified 01/22/17 01:00 Sulfa (Sulfonamide AdvReac Vomiting Verified 01/22/17 01:00 Antibiotics) Home Medications: Home Medications Medication Instructions Recorded Confirmed Type Budesonide/Formoterol 160-4.5 2 puffs INH BID 03/03/17 04/24/17 History [Symbicort 160-4.5] Cyclobenzaprine [Flexeril] 10 mg PO TID 03/03/17 04/24/17 History HYDROcodone/ACETAMIN 10-325 [[place] 10 mg PO TID 03/03/17 04/24/17 History 10-325] Montelukast Tab [Singulair Tab] 10 mg PO BEDTIME 03/03/17 04/24/17 History OLANZapine [Olanzapine] 2.5 mg PO BID 03/03/17 04/24/17 History Pantoprazole Tab [Protonix Tab] 40 mg PO BID 03/03/17 04/24/17 History Pravastatin [Pravachol] 20 mg PO BEDTIME 03/03/17 04/24/17 History Ranolazine [Ranexa] 1,000 mg PO BID 03/03/17 04/24/17 History Temazepam [Restoril] 15 mg PO BEDTIME 03/03/17 04/24/17 History Warfarin [Coumadin] 5 mg PO BEDTIME 03/03/17 04/24/17 History levETIRAcetam [Levetiracetam] 500 mg PO BID 03/03/17 04/24/17 History amLODIPine [Norvasc] 5 mg PO DAILY tablet 03/10/17 04/24/17 Rx Carvedilol [Coreg] 3.125 mg PO BID #0 tablet 04/04/17 04/24/17 Rx Aspirin EC Tab 81 mg PO DAILY 04/24/17 04/24/17 History Benzonatate [Tessalon] 100 mg PO TID PRN 04/24/17 04/24/17 History Calcium Acetate [Phoslo] 1,334 mg PO QID 04/24/17 04/24/17 History Cholestyramine/Aspartame 4 gm PO QOTHER DAY PRN 04/24/17 04/24/17 History [Cholestyramine Light Packet] Cinacalcet [Sensipar] 60 mg PO DAILY 04/24/17 04/24/17 History Levothyroxine Tab [Synthroid Tab] 100 mcg PO DAILY 04/24/17 04/24/17 History Linagliptin [Tradjenta] 5 mg PO DAILY 04/24/17 04/24/17 History Promethazine HCl 50 mg PO Q4-6H PRN 04/24/17 04/24/17 History clonazePAM TAB [KlonoPIN] 0.5 mg PO BID 04/24/17 04/24/17 History rOPINIRole [Requip] 1 mg PO BEDTIME 04/24/17 04/24/17 History Review of System - Review of System 12 point system: reviewed and no additional remarkable complaints except as stated - Review of System Constitutional: Absent: fever Respiratory: Present: cough (nonproductive), other (shortness of breath). Absent: respiratory distress Cardiovascular: Present: chest pain (center). Absent: edema Gastrointestinal: Present: melena, hematochezia (bright red) Musculoskeletal: Present: leg pain (bilateral) Skin: Absent: rash Medical,Surgical,& Family Hx - Medical History Cardio: History of: Cardiac Dysrhythmia, CAD (CABG x 3 (November 2016)), Hypertension, Valvular Heart Disease (mechanical AVR & MVR), Cardiovascular Problems (impression recent aortic issue.) Psychological: History of: Anxiety Disorders, Depression Neurology: History of: Peripheral Neuropathy (FEET/TOES), Vertigo No history of: Dementia, Seizures Endocrine: History of: Diabetes Mellitus (IDDM) Rheumatology: History of;: Fibromyalgia Respiratory: History of: Asthma, COPD Renal: History of: Dialysis, Renal Failure (ESRD) Gastrointestinal: History of: GERD, Gastrointestinal Bleed Hematology: History of: Anemia, Bleeding Problems (high inr), Clotting Problems (pt states she had a clot "three or four years ago") No history of: Blood Transfusion Reaction Other: History of: Miscellaneous Medical Problems (Sinus surgery) No history of: Anesthesia Reactions - Surgical History Cardiac Surgeries: Sugical HX of: Cardiac Catheterization (NO STENTS PLACE), Cardiac Surgery (mechanical MVR and AVR) Thoracic Surgeries: Patient denies;: Organ Transplant HEENT Surgeries: Surgical HX of: Tonsilectomy & Adenoidectomy Abdominal Surgeries: Surgical HX of: Abdominal Surgery (COLON REMOVED), Cholecystectomy Reproductive Surgeries: Surgical HX of;: Gynecologic Surgery, Hysterectomy - Family History Family History: Reports;: Family Cancer (mother ovarian, sister breast), Family Diabetes (mother), Family Heart Disease (mother -[place]), Family Hypertension ( mother), Family Stroke (mother and brother) - Social History Smoking Status: Former smoker Frequency of Alcohol Use: None Type of Drug Use: None Exam Vital Signs: Vital Signs Temperature 97.2 F L 04/24/17 08:46 Pulse Rate 92 H 04/24/17 08:46 Respiratory Rate 22 04/24/17 08:46 Blood Pressure 155/76 04/24/17 08:46 O2 Sat by Pulse Oximetry 95 04/24/17 08:46 GENERAL: This is a chronically ill-appearing white female, pale in no apparent distress. VITAL SIGNS: Reviewed HEENT: Head is atraumatic and normocephalic. Pupils are equal round react to light. Extraocular movements are intact. Oropharynx is benign with moist mucous membranes. NECK: Neck is soft and supple without tenderness. There are no masses. There is no lymphadenopathy. LUNGS: Lungs are clear to auscultation. Chest rises symmetrically. There is no chest wall tenderness. CV: Heart is regular rate and rhythm without murmurs rubs or gallops. ABDOMEN: Abdomen is soft, nontender to palpation. There are no abdominal abnormal masses palpated. There is no organomegaly. Bowel sounds are present and active. Rectal: Good rectal tone, no masses, heme-negative stool present in the vault. SKIN: Skin is warm and dry. No rash. Pallor EXTREMITIES: Patient has full range of motion without tenderness. There is no pedal edema. NEUROLOGIC: Awake alert and oriented 4. Cranial nerves II through XII are grossly intact. Motor is 4 over 5 in all extremities bilaterally. Course Course Narrative: Patient was given Levaquin IV in the emergency department. - Consultations Consultation #1: Discussed with hospitalist. Patient will be admitted to their service. Time: 09:30 Procedures - Central Line Placement Right Femoral Consent Obtained: verbal consent Time Out Performed: Yes Patient Placed on Monitor/Pulse Ox: Yes Prep: mask, gown, gloves Central Line Prep: Chlorhexidine scrub Local Anesthetic: lidocaine 1% Amount of anesthesia used (mL): 3 Ultrasound Used for Placement: No Central Line Lumen Inserted: triple Post Procedure: sutured in place, good blood return, all ports aspirated, flushed, capped, sterile dressing applied Patient Tolerated Procedure: well Complications: none Additional Comments: Indication: Inability to obtain peripheral IV access. Estimated blood loss: 10 mL's. Results - Labs CBC & BMP: 04/24/17 09:04 04/24/17 09:04 Lab Results: I have reviewed the patients labs - EKG EKG results: interpreted by ERMD - Impressions EKG: Normal sinus rhythm with rate of 91, normal ST-T waves, normal axis. - Diagnostic Findings Procedure: Chest x-ray: image reviewed by me (Right sided infiltrate) Critical Care Time Critical Care Time: No Disposition Clinical Impression: Dyspnea, End-stage renal disease on hemodialysis, Valvular heart disease, Coronary artery disease, Pneumonia Case discussed with: patient Disposition: Still a Patient Condition: Guarded Time of Disposition: 09:22
[2017-04-24 09:49] LABS: Bilirubin,Total 1.7 MG/DL (0.2-1.0); Calcium 9.6 MG/DL (8.5-10.1); Osmolality,Calculated 284.5 MOS/KG (273-304); Potassium 5.5 MMOL/L (3.5-5.1); Total Protein 7.3 G/DL (6.4-8.3); Troponin I Only 0.015 NG/ML (0.00-0.045)
--- NOTE | 2017-04-24 09:49 | EKG Report ---
Stationary ECG Study [facility] ER Test Date: 04/24/2017 8:56:41 AM Pat Name: OSBALDO FARIAS Department: Room: Gender: F [employer] Operator: : 1955 Requested by: Adrian Jasmine Order Number: [id number] Reading MD: JENNY WARD Intervals [place] Rate: 91 P: 77 MI: 132 QRS: 70 QRSD: 100 T: 76 QT: 371 QTc: 420 Interpretive Statements SINUS RHYTHM at 91 bpm WNL Electronically Signed On 04-24-17 15:27:01 CDT by JENNY WARD [email or web address]
[2017-04-24 09:56] LABS: Basophils # 0.1 10*3/uL (0.0-0.2); Basophils % 0.4 % (0.0-0.8); Eosinophils # 0.2 10*3/uL (0.0-0.87); Eosinophils % 1.8 % (0.00-10.9); Hematocrit 21.8 VOL% (35.7-47.0); Immature Granulocytes % 0.7 %; Immature Granulocytes Absolute 0.08 #; Lymphocytes # 1.6 10*3/uL (1.4-4.0); Lymphocytes % 14.7 % (21.3-54.2); Mean Corpuscular HGB Conc 33.5 GM/DL (32-36); Mean Corpuscular Hemoglobin 33 PG (27-34); Mean Corpuscular Volume 99.5 FL (87-102); Mean Platelet Volume 10.3 FL (9.6-12.0); Monocytes # 0.6 10*3/uL (0.11-0.8); Monocytes % 5.4 % (1.7-12.7); Neutrophils # 8.6 10*3/uL (1.4-7.4); Platelet Count 164 T/CUMM (130-400); Red Blood Count 2.19 MC/CUMM (3.8-5.5); White Blood Count 11.1 T/CUMM (4-12)
[2017-04-24 10:01] LABS: Hemoglobin 7.3 GM/DL (12.0-16.0)
[2017-04-24] MEDS ORDERED: LEVOFLOXACIN INJ 100 ML IV ONE (10:42)
--- NOTE | 2017-04-24 10:46 | Hospitalist History & Physical ---
<Brandie Arriaga - Last Filed: 04/24/17 11:53> Assessment and Plan - Time spent with patient Time spent with patient: Greater than 30 minutes (1) Dyspnea Status: Acute Assessment and plan: Admit to Hospital Services. Order a.m. labs. Aminatabs. Will discuss with Bertram for further recommendations and treatment. Current Visit: Yes (2) End-stage renal disease on hemodialysis Status: Acute Assessment and plan: Dialysis on T,T,S) Will consult Nephrology for following during this admission for continue of care. Current Visit: Yes (3) Pneumonia Status: Acute Assessment and plan: Will start antibiotics. Blood cultures were obtained in the ED. Current Visit: Yes History of Present Illness Chief complaint: shortness of breath History of present illness: Ms. Betancourt is a 61 year old white female presented to [facility] ER for c/ o shortness of breath that started on Sunday and has gradually worsened. She has PMHx of CKD with dialysis (TTS); CAD, HTN, Mechanical AVR and MVR, depression, vertigo, peripheral neuropathy, Diabetes, fibromyalgia, asthma, COPD , GERD, Anemia, and blood clots. She reports feeling more short of breath when she tries to lay down even with her normal 2 pillow head elevation. She had dialysis on Sunday as scheduled. She reports normally ambulating without any assistance but has been requiring a cane due to her shortness of breath and tired feeling. She reports some chest pain yesterday in the center of her chest but did not radiate and lasting briefly. SHe jose nausea or vomiting. Denies cough. She denies fever or chills. In ED cXR: Continued cardiomegaly status post sternotomy/cardiac valve replacement. Continued prominence of bilateral interstitial lung markings. Mildly progressed right basilar consolidation. Visualized osseous and surrounding soft tissue structures appear grossly unchanged. EKG reviewed by ED MD noted for sinus rhythm with rate 0f 91. Normal ST-T waves. H&H 7.3 and Hct 21.8. Plt 164; NA 132, K 5.5; BUN 67 and Creatinine 7.50; Troponin 0.015; BNP 1160; ALT 14; AST 33. After discussion with Dr Delong in ED and Dr Burden with Hospital Medicine, it was in agreement to admit patient for monitoring and further evaluation. Home medications will be reviewed and reconciliation to follow. Home Medications Medication Instructions Recorded Confirmed Type Budesonide/Formoterol 160-4.5 2 puffs INH BID 03/03/17 04/24/17 History [Symbicort 160-4.5] Cyclobenzaprine [Flexeril] 10 mg PO TID 03/03/17 04/24/17 History HYDROcodone/ACETAMIN 10-325 [[place] 10 mg PO TID 03/03/17 04/24/17 History 10-325] Montelukast Tab [Singulair Tab] 10 mg PO BEDTIME 03/03/17 04/24/17 History OLANZapine [Olanzapine] 2.5 mg PO BID 03/03/17 04/24/17 History Pantoprazole Tab [Protonix Tab] 40 mg PO BID 03/03/17 04/24/17 History Pravastatin [Pravachol] 20 mg PO BEDTIME 03/03/17 04/24/17 History Ranolazine [Ranexa] 1,000 mg PO BID 03/03/17 04/24/17 History Temazepam [Restoril] 15 mg PO BEDTIME 03/03/17 04/24/17 History Warfarin [Coumadin] 5 mg PO BEDTIME 03/03/17 04/24/17 History levETIRAcetam [Levetiracetam] 500 mg PO BID 03/03/17 04/24/17 History amLODIPine [Norvasc] 5 mg PO DAILY tablet 03/10/17 04/24/17 Rx Carvedilol [Coreg] 3.125 mg PO BID #0 tablet 04/04/17 04/24/17 Rx Aspirin EC Tab 81 mg PO DAILY 04/24/17 04/24/17 History Benzonatate [Tessalon] 100 mg PO TID PRN 04/24/17 04/24/17 History Calcium Acetate [Phoslo] 1,334 mg PO QID 04/24/17 04/24/17 History Cholestyramine/Aspartame 4 gm PO QOTHER DAY PRN 04/24/17 04/24/17 History [Cholestyramine Light Packet] Cinacalcet [Sensipar] 60 mg PO DAILY 04/24/17 04/24/17 History Levothyroxine Tab [Synthroid Tab] 100 mcg PO DAILY 04/24/17 04/24/17 History Linagliptin [Tradjenta] 5 mg PO DAILY 04/24/17 04/24/17 History Promethazine HCl 50 mg PO Q4-6H PRN 04/24/17 04/24/17 History clonazePAM TAB [KlonoPIN] 0.5 mg PO BID 04/24/17 04/24/17 History rOPINIRole [Requip] 1 mg PO BEDTIME 04/24/17 04/24/17 History Allergies Allergy/AdvReac Type Severity Reaction Status Date / Time Iodinated Contrast Media - Allergy RASH Verified 01/22/17 01:00 Oral and [Iodinated Contrast Media - IV Dye] Penicillins Allergy ANAPHYLAXIS Verified 01/22/17 01:00 aspirin AdvReac Nausea Verified 01/22/17 01:00 cephalexin [From Keflex] AdvReac Vomiting Verified 01/22/17 01:00 Sulfa (Sulfonamide AdvReac Vomiting Verified 01/22/17 01:00 Antibiotics) Medical,Surgical,& Family Hx - Medical History Cardio: History of: Cardiac Dysrhythmia, CAD (CABG x 3 (November 2016)), Hypertension, Valvular Heart Disease (mechanical AVR & MVR), Cardiovascular Problems (impression recent aortic issue.) Psychological: History of: Anxiety Disorders, Depression Neurology: History of: Peripheral Neuropathy (FEET/TOES), Vertigo No history of: Dementia, Seizures Endocrine: History of: Diabetes Mellitus (IDDM) Rheumatology: History of;: Fibromyalgia Respiratory: History of: Asthma, COPD Renal: History of: Dialysis, Renal Failure (ESRD) Gastrointestinal: History of: GERD, Gastrointestinal Bleed Hematology: History of: Anemia, Bleeding Problems (high inr), Clotting Problems (pt states she had a clot "three or four years ago") No history of: Blood Transfusion Reaction Other: History of: Miscellaneous Medical Problems (Sinus surgery) No history of: Anesthesia Reactions - Surgical History Cardiac Surgeries: Sugical HX of: Cardiac Catheterization (NO STENTS PLACE), Cardiac Surgery (mechanical MVR and AVR) Thoracic Surgeries: Patient denies;: Organ Transplant HEENT Surgeries: Surgical HX of: Tonsilectomy & Adenoidectomy Abdominal Surgeries: Surgical HX of: Abdominal Surgery (COLON REMOVED), Cholecystectomy Reproductive Surgeries: Surgical HX of;: Gynecologic Surgery, Hysterectomy - Family History Family History: Reports;: Family Cancer (mother ovarian, sister breast), Family Diabetes (mother), Family Heart Disease (mother -[place]), Family Hypertension ( mother), Family Stroke (mother and brother) - Social History Smoking Status: Former smoker Frequency of Alcohol Use: None Type of Drug Use: None Lives With:: Children (lives with her children) Functional capacity: uses cane/walker (usually ambulates without assistance; use a cane occasionally) Review of systems: ROS completed and pertinent positives and negatives in HPI. Exam - Constitutional Vitals: Period Temp Pulse Resp BP Sys/Vargas Pulse Ox Last 24 Hr 97.2 F 92 22 155/76 95 General appearance: normal weight, no acute distress - Head Head exam: Present: normal inspection - Eye Eye exam: Present: EOMI Pupils: Present: NONI - Neck Neck exam: Present: normal inspection - Respiratory Respiratory exam: Present: clear to auscultation bilaterally. Absent: wheezes - GI/Abdominal GI/Abdominal exam: Present: normal bowel sounds, soft. Absent: tenderness, rebound - Extremities Exam Extremities exam: Present: full ROM. Absent: edema - Neurological Exam Neurological exam: Present: alert, oriented X3, CN II-XII intact - Psychiatric Psychiatric exam: Present: normal affect, normal mood - Skin Skin exam: Present: normal color, warm, dry Results - Labs CBC & BMP: 04/24/17 09:04 04/24/17 09:04 Lab Results: I have reviewed the past 24 hour labs - EKG EKG results: interpreted by ERMD - Diagnostic Findings Procedure: Chest x-ray: report reviewed by me (Continued cardiomegaly status post sternotomy/cardiac valve replacement; continued prominence of bilateral interstitial lung markings; mild progressed right basilar consolidation visualized osseous and surrounding soft tissue structure appear grossly unchanged) <Leti Burden - Last Filed: 04/24/17 14:54> History of Present Illness History of present illness: Ms. Betancourt is a 61 year old female with a history of ESRD on HD, Valvular Heart Disease (mechanical AVR & MVR) on coumadin who presents with SOB and CXR showing continued prominence of bilateral interstitial lung markings. Mildly progressed right basilar consolidation. labs showed anemia of 7.3/21.8 and a potassium of 5.5. plan Resume Coumadin and add Lovenox-INR is subtherapeutic IV Levaquin BC, SC INR in am We will resume home meds for all her other medical condition Nephrology to continue her dialysis CBC, BMP in am Exam - Constitutional Vitals: Period Temp Pulse Resp BP Sys/Vargas Pulse Ox Last 24 Hr 97.2 F-97.2 F 86-93 18-22 138-155/69-79 95-100 Results - Labs CBC & BMP: 04/24/17 09:04 04/24/17 09:04
[2017-04-24 10:57] LABS: Partial Thromboplastin Time 24.1 SECS (0-40)
[2017-04-24 11:03] LABS: PT Patient Result 22.4 SECS
[2017-04-24] MEDS ORDERED: DEXTROSE 50% 25 GM/50 ML SYRINGE IV PRN (11:13)
[2017-04-24] MEDS ORDERED: GLUCAGON 1 MG VIAL IM PRN (11:13)
[2017-04-24] MEDS ORDERED: DOCUSATE SODIUM 100 MG CAPSULE PO PRN (11:13)
[2017-04-24] MEDS ORDERED: CHOLESTYRAMINE/ASPARTAME 4 GM PACK PO PRN (14:50)
[2017-04-24] MEDS ORDERED: ENOXAPARIN 40 MG/0.4 ML SYRINGE SUBCUT SCH (15:00)
[2017-04-24] MEDS ORDERED: SODIUM CHLORIDE 0.9% 250 ML IV PRN (15:10)
[2017-04-24] MEDS ORDERED: ALBUTEROL/IPRATROPIUM 3 ML NEB RESP TX ONE (15:11)
--- NOTE | 2017-04-24 15:36 | Nephrology Consult Note ---
History of Present Illness Chief complaint: SOB History of present illness: Ms. Betancourt is a 61 year old female with ESRD on CHD TTSa. Last dialyzed on Sunday and Sunday. Had onset SOB Sunday. On home O2, nebs. 40pkyr smoker, quit approx 4 months ago. Denies F/C/N/V. Anemic, Hct 21. Transfused and discharged on 04/04/2017 with post transfusion Hct 25. CXR with maybe increased RLL infiltrate, pulmonary edema unimpressive. BNP ~1100. SaO2 91% on 2L via nc. Home Medications Medication Instructions Recorded Confirmed Type Budesonide/Formoterol 160-4.5 2 puffs INH BID 03/03/17 04/24/17 History [Symbicort 160-4.5] Cyclobenzaprine [Flexeril] 10 mg PO TID 03/03/17 04/24/17 History HYDROcodone/ACETAMIN 10-325 [[place] 10 mg PO TID 03/03/17 04/24/17 History 10-325] Montelukast Tab [Singulair Tab] 10 mg PO BEDTIME 03/03/17 04/24/17 History OLANZapine [Olanzapine] 2.5 mg PO BID 03/03/17 04/24/17 History Pantoprazole Tab [Protonix Tab] 40 mg PO BID 03/03/17 04/24/17 History Pravastatin [Pravachol] 20 mg PO BEDTIME 03/03/17 04/24/17 History Ranolazine [Ranexa] 1,000 mg PO BID 03/03/17 04/24/17 History Temazepam [Restoril] 15 mg PO BEDTIME 03/03/17 04/24/17 History Warfarin [Coumadin] 5 mg PO BEDTIME 03/03/17 04/24/17 History levETIRAcetam [Levetiracetam] 500 mg PO BID 03/03/17 04/24/17 History amLODIPine [Norvasc] 5 mg PO DAILY tablet 03/10/17 04/24/17 Rx Carvedilol [Coreg] 3.125 mg PO BID #0 tablet 04/04/17 04/24/17 Rx Aspirin EC Tab 81 mg PO DAILY 04/24/17 04/24/17 History Benzonatate [Tessalon] 100 mg PO TID PRN 04/24/17 04/24/17 History Calcium Acetate [Phoslo] 1,334 mg PO QID 04/24/17 04/24/17 History Cholestyramine/Aspartame 4 gm PO QOTHER DAY PRN 04/24/17 04/24/17 History [Cholestyramine Light Packet] Cinacalcet [Sensipar] 60 mg PO DAILY 04/24/17 04/24/17 History Levothyroxine Tab [Synthroid Tab] 100 mcg PO DAILY 04/24/17 04/24/17 History Linagliptin [Tradjenta] 5 mg PO DAILY 04/24/17 04/24/17 History Promethazine HCl 50 mg PO Q4-6H PRN 04/24/17 04/24/17 History clonazePAM TAB [KlonoPIN] 0.5 mg PO BID 04/24/17 04/24/17 History rOPINIRole [Requip] 1 mg PO BEDTIME 04/24/17 04/24/17 History Allergies Allergy/AdvReac Type Severity Reaction Status Date / Time Iodinated Contrast Media - Allergy RASH Verified 01/22/17 01:00 Oral and [Iodinated Contrast Media - IV Dye] Penicillins Allergy ANAPHYLAXIS Verified 01/22/17 01:00 aspirin AdvReac Nausea Verified 01/22/17 01:00 cephalexin [From Keflex] AdvReac Vomiting Verified 01/22/17 01:00 Sulfa (Sulfonamide AdvReac Vomiting Verified 01/22/17 01:00 Antibiotics) Medical,Surgical,& Family Hx - Medical History Cardio: History of: Cardiac Dysrhythmia, CAD (CABG x 3 (November 2016)), Hypertension, Valvular Heart Disease (mechanical AVR & MVR), Cardiovascular Problems (impression recent aortic issue.) Psychological: History of: Anxiety Disorders, Depression Neurology: History of: Peripheral Neuropathy (FEET/TOES), Vertigo No history of: Dementia, Seizures Endocrine: History of: Diabetes Mellitus (IDDM) Rheumatology: History of;: Fibromyalgia Respiratory: History of: Asthma, COPD Renal: History of: Dialysis, Renal Failure (ESRD) Gastrointestinal: History of: GERD, Gastrointestinal Bleed Hematology: History of: Anemia, Bleeding Problems (high inr), Clotting Problems (pt states she had a clot "three or four years ago") No history of: Blood Transfusion Reaction Other: History of: Miscellaneous Medical Problems (Sinus surgery) No history of: Anesthesia Reactions - Surgical History Cardiac Surgeries: Sugical HX of: Cardiac Catheterization (NO STENTS PLACE), Cardiac Surgery (mechanical MVR and AVR) Thoracic Surgeries: Patient denies;: Organ Transplant HEENT Surgeries: Surgical HX of: Tonsilectomy & Adenoidectomy Abdominal Surgeries: Surgical HX of: Abdominal Surgery (COLON REMOVED), Cholecystectomy Reproductive Surgeries: Surgical HX of;: Gynecologic Surgery, Hysterectomy - Family History Family History: Reports;: Family Cancer (mother ovarian, sister breast), Family Diabetes (mother), Family Heart Disease (mother -[place]), Family Hypertension ( mother), Family Stroke (mother and brother) - Social History Smoking Status: Former smoker Frequency of Alcohol Use: None Type of Drug Use: None Exam - Vital Signs Vital signs: Period Temp Pulse Resp BP Sys/Vargas Pulse Ox Last 24 Hr 97.2 F-97.2 F 86-93 18-22 138-155/69-79 95-100 - General Appearance General appearance: well-nourished, chronically ill EENT: ATNC, PERRL, mucous membranes dry, hearing intact, vision intact Neck: no JVD, no thyromegaly Respiratory: no kyphosis, rales Cardiology: no murmurs, no rub, no edema Gastrointestinal: normoactive bowel sounds, no tenderness Integumentary: no rash, warm and dry Neurologic: no focal deficit, no asterixis, alert and oriented x3 Musculoskeletal: no deformities, no erythema Psychiatric: depressed, cooperative Results - Labs CBC & BMP: 04/24/17 09:04 04/24/17 09:04 Assessment and Plan (1) History of COPD Status: Chronic Assessment and plan: Leydi now. Pulmonary consult in am. Current Visit: No (2) End-stage renal disease on hemodialysis Problem details: HD today. Linear sodium modeling 150->140, low dialysate temp ( 35), high calcium, UF 4.5L as tolerated by hemodynamics. Heparin free with report of bloody stool. Transfuse 2u pRBCs on HD. Status: Acute Current Visit: Yes (3) Lower GI bleed Status: Acute Current Visit: No (4) Chronic anticoagulation Status: Chronic Current Visit: No (5) History of coronary artery bypass graft x 1 Status: Chronic Current Visit: No (6) History of mitral valve replacement with mechanical valve Status: Chronic Current Visit: No
[2017-04-24] MEDS: CYCLOBENZAPRINE 10 MG TABLET PO SCH ×2 (15:57→21:02)
--- NOTE | 2017-04-24 16:05 | Dialysis Note ---
Dialysis Note - Dialysis Note S: Pt seen on dialysis. O: VSS A: ESRD on CHD. Tolerating well s complications. P: Next scheduled routine CHD . Transfusing 2u pRBCs with HD.
[2017-04-24] MEDS: CALCIUM ACETATE 667 MG CAPSULE PO SCH ×3 (16:08→21:18)
[2017-04-24] MEDS: ALBUTEROL/IPRATROPIUM 3 ML NEB RESP TX SCH ×2 (20:31→23:36)
[2017-04-24] MEDS: levETIRAcetam 500 MG TABLET PO SCH (21:01)
[2017-04-24] MEDS: RANOLAZINE 500 MG TABLET PO SCH (21:01)
[2017-04-24] MEDS: rOPINIRole 1 MG TABLET PO SCH (21:01)
[2017-04-24] MEDS: MONTELUKAST 10 MG TABLET PO SCH (21:01)
[2017-04-24] MEDS: clonazePAM 0.5 MG TABLET PO SCH (21:01)
[2017-04-24] MEDS: TEMAZEPAM 15 MG CAPSULE PO SCH (21:01)
[2017-04-24] MEDS: PRAVASTATIN 20 MG TABLET PO SCH (21:01)
[2017-04-24] MEDS: WARFARIN 5 MG TABLET PO SCH (21:02)
[2017-04-24] MEDS: CARVEDILOL 3.125 MG TABLET PO SCH (21:02)
[2017-04-24] MEDS: OLANZapine 2.5 MG TABLET PO SCH (21:02)
[2017-04-24] MEDS: PANTOPRAZOLE 40 MG TABLET PO SCH (21:02)
[2017-04-24] MEDS: BUDESONIDE/FORMOTEROL 160-4.5 INHALER 6 GM INH SCH (21:03)
[2017-04-25] MEDS: ALBUTEROL/IPRATROPIUM 3 ML NEB RESP TX SCH ×6 (04:13→23:28)
[2017-04-25 05:54] LABS: Basophils # 0.1 10*3/uL (0.0-0.2); Basophils % 0.6 % (0.0-0.8); Eosinophils # 0.1 10*3/uL (0.0-0.87); Eosinophils % 1.6 % (0.00-10.9); Hematocrit 26.1 VOL% (35.7-47.0); Hemoglobin 8.7 GM/DL (12.0-16.0); Immature Granulocytes % 0.8 %; Immature Granulocytes Absolute 0.07 #; Lymphocytes # 1.2 10*3/uL (1.4-4.0); Lymphocytes % 14.1 % (21.3-54.2); Mean Corpuscular HGB Conc 33.3 GM/DL (32-36); Mean Corpuscular Hemoglobin 32 PG (27-34); Mean Corpuscular Volume 94.9 FL (87-102); Mean Platelet Volume 10.1 FL (9.6-12.0); Monocytes # 0.4 10*3/uL (0.11-0.8); Monocytes % 4.8 % (1.7-12.7); Neutrophils # 6.9 10*3/uL (1.4-7.4); Neutrophils % 78.1 % (38.7-73.9); Platelet Count 156 T/CUMM (130-400); Red Blood Count 2.75 MC/CUMM (3.8-5.5); Red Cell Distribution Width 22.1 % (9.3-17.3); White Blood Count 8.8 T/CUMM (4-12)
[2017-04-25 06:03] LABS: INR 1.8
[2017-04-25 06:24] LABS: Anisocytosis 1+; Hypochromasia 1+; Microcytosis 1+
[2017-04-25 06:25] LABS: Calcium 10.8 MG/DL (8.5-10.1); Magnesium 2.1 MG/DL (1.8-2.4); Osmolality,Calculated 287.4 MOS/KG (273-304); Ovalocytes Slight; Platelet Estimate Adequate; Potassium 4.5 MMOL/L (3.5-5.1)
--- NOTE | 2017-04-25 08:32 | Nephrology Progress Note ---
Nephrology - PN: Subj Interval history: Pt states she slept better overnight than in a long time. Removed approx 3.5L net UF with HD yesterday. Bibasilar end insp crackles R>L on exam, but improved from yesterday. Exam (PN)-Nephrology - Vital Signs Vital signs: Period Temp Pulse Resp BP Sys/Vargas Pulse Ox Last 24 Hr 95.8 F-98.0 F 83-104 16-22 122-155/65-81 90-100 - General Appearance General appearance: well-developed, chronically ill EENT: ATNC, PERRL, mucous membranes dry, hearing intact, vision intact Neck: no JVD, no thyromegaly Respiratory: no kyphosis, rales Cardiology: no murmurs, no rub, edema Gastrointestinal: normoactive bowel sounds, no tenderness Integumentary: no rash, warm and dry Neurologic: no focal deficit, no asterixis, alert and oriented x3 Musculoskeletal: no deformities, no erythema Psychiatric: mood/affect appropriate, cooperative - Lab 04/25/17 05:34 04/25/17 05:34 Most recent lab results Calcium 10.8 MG/DL (8.5-10.1) H 04/25/17 05:34 Magnesium 2.1 MG/DL (1.8-2.4) 04/25/17 05:34 Assessment and Plan (1) History of COPD Status: Chronic Assessment and plan: Leydi now. Pulmonary consult today. Current Visit: No (2) End-stage renal disease on hemodialysis Problem details: Pure ultrafiltration today, 2 hrs, 2-3L UF as tolerated. Next scheduled routine CHD tomorrow. Status: Acute Current Visit: Yes (3) Lower GI bleed Status: Acute Current Visit: No (4) Chronic anticoagulation Status: Chronic Current Visit: No (5) History of coronary artery bypass graft x 1 Status: Chronic Current Visit: No (6) History of mitral valve replacement with mechanical valve Status: Chronic Current Visit: No
[2017-04-25] MEDS: CINACALCET 30 MG TABLET PO SCH (08:41)
[2017-04-25] MEDS: sitaGLIPtin 25 MG TABLET PO SCH (08:41)
[2017-04-25] MEDS: CALCIUM ACETATE 667 MG CAPSULE PO SCH ×4 (08:41→22:06)
[2017-04-25] MEDS: RANOLAZINE 500 MG TABLET PO SCH ×2 (08:41→22:05)
[2017-04-25] MEDS: LEVOTHYROXINE 100 MCG TABLET PO SCH (08:41)
[2017-04-25] MEDS: CYCLOBENZAPRINE 10 MG TABLET PO SCH ×3 (08:41→22:09)
[2017-04-25] MEDS: clonazePAM 0.5 MG TABLET PO SCH ×2 (08:41→22:07)
[2017-04-25] MEDS: amLODIPine 5 MG TABLET PO SCH (08:41)
[2017-04-25] MEDS: PROMETHAZINE 25 MG TABLET PO PRN (08:41)
[2017-04-25] MEDS: OLANZapine 2.5 MG TABLET PO SCH ×2 (08:42→22:06)
[2017-04-25] MEDS: ASPIRIN EC 81 MG TABLET PO SCH (08:42)
[2017-04-25] MEDS: BUDESONIDE/FORMOTEROL 160-4.5 INHALER 6 GM INH SCH ×2 (08:42→21:30)
[2017-04-25] MEDS: CARVEDILOL 3.125 MG TABLET PO SCH ×2 (08:42→22:07)
[2017-04-25] MEDS: levETIRAcetam 500 MG TABLET PO SCH ×2 (08:42→22:07)
[2017-04-25] MEDS: PANTOPRAZOLE 40 MG TABLET PO SCH ×2 (08:42→22:06)
--- NOTE | 2017-04-25 08:57 | Gastrointestinal Consult Note ---
<Mariella Reyna - Last Filed: 04/25/17 08:49> Assessment and Plan (1) Symptomatic anemia Status: Resolved Assessment and plan: 04/25-Onset of SOB and weakness with findings on admission of pneumonia and anemia without reports of overt bleeding. Hx of ESRD on dialysis. Hx of anemia with multiple transfusions in the past. Received 2 units PRBC on admission for HH 04/06 now up to 05/12. Check stools for occult blood. Plan and addendum to follow by Dr Luke. Current Visit: No History of Present Illness Chief complaint: Anemia History of present illness: Ms. Betancourt is a 61 year old female who was admitted to the hospital with worsening SOB x 4 days. She has a history of COPD, DM, mechanical AVR and MVR, CKD with dialysis, anemia, and GERD. Pt states that on Sunday she began having some increase in her shortness of breath and increased fatigue from her usual baseline. She states she just wasnt feeling very well and this continued to worsen as the days passed. She states that she also had some discomfort in her chest and a cough that was not easily relieved with medication. She presented to the ER for further evaluation on yesterday and at that time was found to have pneumonia and admitted for further treatment. She was also noted on admission to have an HH of 04/06. She has been transfused 2 units of PRBC and HH is not 05/12. Pt states that she did notice over the last several days her stools have become darker again however did not see any bright red blood. She denies any abdominal pain, nausea or vomiting. Denies any recent weight loss, fever or chills. She denies any increase in GERD or dyspepsia. She takes Coumadin daily with INR at 2.0 on admission, now down to 1.8. She has had endoscopy in the past with small bowel camera in 2011 with findings of jejunal and duodenal AVMs, EGD in February with no abnormal findings as well as flex sigmoidoscopy in February without acute findings. Unable to locate records for last colonoscopy and pt unable to recall this. Home Medications Medication Instructions Recorded Confirmed Type Budesonide/Formoterol 160-4.5 2 puffs INH BID 03/03/17 04/24/17 History [Symbicort 160-4.5] Cyclobenzaprine [Flexeril] 10 mg PO TID 03/03/17 04/24/17 History HYDROcodone/ACETAMIN 10-325 [[place] 10 mg PO TID 03/03/17 04/24/17 History 10-325] Montelukast Tab [Singulair Tab] 10 mg PO BEDTIME 03/03/17 04/24/17 History OLANZapine [Olanzapine] 2.5 mg PO BID 03/03/17 04/24/17 History Pantoprazole Tab [Protonix Tab] 40 mg PO BID 03/03/17 04/24/17 History Pravastatin [Pravachol] 20 mg PO BEDTIME 03/03/17 04/24/17 History Ranolazine [Ranexa] 1,000 mg PO BID 03/03/17 04/24/17 History Temazepam [Restoril] 15 mg PO BEDTIME 03/03/17 04/24/17 History Warfarin [Coumadin] 5 mg PO BEDTIME 03/03/17 04/24/17 History levETIRAcetam [Levetiracetam] 500 mg PO BID 03/03/17 04/24/17 History amLODIPine [Norvasc] 5 mg PO DAILY tablet 03/10/17 04/24/17 Rx Carvedilol [Coreg] 3.125 mg PO BID #0 tablet 04/04/17 04/24/17 Rx Aspirin EC Tab 81 mg PO DAILY 04/24/17 04/24/17 History Benzonatate [Tessalon] 100 mg PO TID PRN 04/24/17 04/24/17 History Calcium Acetate [Phoslo] 1,334 mg PO QID 04/24/17 04/24/17 History Cholestyramine/Aspartame 4 gm PO QOTHER DAY PRN 04/24/17 04/24/17 History [Cholestyramine Light Packet] Cinacalcet [Sensipar] 60 mg PO DAILY 04/24/17 04/24/17 History Levothyroxine Tab [Synthroid Tab] 100 mcg PO DAILY 04/24/17 04/24/17 History Linagliptin [Tradjenta] 5 mg PO DAILY 04/24/17 04/24/17 History Promethazine HCl 50 mg PO Q4-6H PRN 04/24/17 04/24/17 History clonazePAM TAB [KlonoPIN] 0.5 mg PO BID 04/24/17 04/24/17 History rOPINIRole [Requip] 1 mg PO BEDTIME 04/24/17 04/24/17 History Allergies Allergy/AdvReac Type Severity Reaction Status Date / Time Iodinated Contrast Media - Allergy RASH Verified 01/22/17 01:00 Oral and [Iodinated Contrast Media - IV Dye] Penicillins Allergy ANAPHYLAXIS Verified 01/22/17 01:00 aspirin AdvReac Nausea Verified 01/22/17 01:00 cephalexin [From Keflex] AdvReac Vomiting Verified 01/22/17 01:00 Sulfa (Sulfonamide AdvReac Vomiting Verified 01/22/17 01:00 Antibiotics) Medical,Surgical,& Family Hx - Medical History Cardio: History of: Cardiac Dysrhythmia, CAD (CABG x 3 (November 2016)), Hypertension, Valvular Heart Disease (mechanical AVR & MVR), Cardiovascular Problems (impression recent aortic issue.) Psychological: History of: Anxiety Disorders, Depression Neurology: History of: Peripheral Neuropathy (FEET/TOES), Vertigo No history of: Dementia, Seizures Endocrine: History of: Diabetes Mellitus (IDDM) Rheumatology: History of;: Fibromyalgia Respiratory: History of: Asthma, COPD Renal: History of: Dialysis, Renal Failure (ESRD) Gastrointestinal: History of: GERD, Gastrointestinal Bleed Hematology: History of: Anemia, Bleeding Problems (high inr), Clotting Problems (pt states she had a clot "three or four years ago") No history of: Blood Transfusion Reaction Other: History of: Miscellaneous Medical Problems (Sinus surgery) No history of: Anesthesia Reactions - Surgical History Cardiac Surgeries: Sugical HX of: Cardiac Catheterization (NO STENTS PLACE), Cardiac Surgery (mechanical MVR and AVR) Thoracic Surgeries: Patient denies;: Organ Transplant HEENT Surgeries: Surgical HX of: Tonsilectomy & Adenoidectomy Abdominal Surgeries: Surgical HX of: Abdominal Surgery (COLON REMOVED), Cholecystectomy Reproductive Surgeries: Surgical HX of;: Gynecologic Surgery, Hysterectomy - Family History Family History: Reports;: Family Cancer (mother ovarian, sister breast), Family Diabetes (mother), Family Heart Disease (mother -[place]), Family Hypertension ( mother), Family Stroke (mother and brother) - Social History Smoking Status: Former smoker Frequency of Alcohol Use: None Type of Drug Use: None 12 point system: reviewed and no additional remarkable complaints except as stated - Constitutional Constitutional: Present: as per HPI, fatigue, weakness - EENT Eyes: Present: as per HPI Ears: Present: as per HPI Nose, mouth and throat: Present: as per HPI - Cardiovascular Cardiovascular: Present: as per HPI - Respiratory Respiratory: Present: as per HPI, cough, dyspnea - Gastrointestinal Gastrointestinal: Present: as per HPI, melena - Genitourinary Genitourinary: Present: as per HPI - Musculoskeletal Musculoskeletal: Present: as per HPI - Neurological Neurological: Present: abnormal gait - Psychiatric Psychiatric: Present: as per HPI - Endocrine Endocrine: Present: as per HPI - Hematologic/Lymphatic Hematologic/Lymphatic: Present: as per HPI Exam - Constitutional Vitals: Period Temp Pulse Resp BP Sys/Vargas Pulse Ox Last 24 Hr 95.8 F-98.0 F 83-104 16-20 122-155/65-81 90-100 General appearance: normal weight, no acute distress - Head Head exam: Present: normal inspection, normocephalic - Eye Eye exam: Present: other (lids and conjunctiva unremarkable). Absent: scleral icterus - ENT ENT exam: Present: normal exam, normal oropharynx - Neck Neck exam: Present: normal inspection - Respiratory Respiratory exam: Present: clear to auscultation bilaterally. Absent: rales, rhonchi, wheezes - Cardiovascular Cardiovascular exam: Present: regular rate and rhythm. Absent: diastolic murmur , JVD, systolic murmur - GI/Abdominal GI/Abdominal exam: Present: normal bowel sounds, soft. Absent: ascites, distended, mass, organomegaly, tenderness - Extremities Exam Extremities exam: Present: normal inspection, full ROM - Back Exam Back exam: Present: normal inspection - Neurological Exam Neurological exam: Present: alert, oriented X3 - Psychiatric Psychiatric exam: Present: normal affect, normal mood - Skin Skin exam: Present: normal color, warm, dry Results - Labs CBC & BMP: 04/25/17 05:34 04/25/17 05:34 Lab Results: I have reviewed the past 24 hour labs <Darion Luke - Last Filed: 04/25/17 13:49> History of Present Illness History of present illness: Ms. Betancourt is a 61 year old female Exam - Constitutional Vitals: Period Temp Pulse Resp BP Sys/Vargas Pulse Ox Last 24 Hr 95.8 F-98.0 F 83-104 16-20 122-146/65-81 90-99 Results - Labs CBC & BMP: 04/25/17 05:34 04/25/17 05:34
[2017-04-25] MEDS ORDERED: PANTOPRAZOLE 40 MG TABLET PO SCH (09:00)
--- NOTE | 2017-04-25 12:48 | Hospitalist Progress Note ---
Assessment and Plan (1) End-stage renal disease on hemodialysis Problem details: Pure ultrafiltration today, 2 hrs, 2-3L UF as tolerated. Next scheduled routine CHD tomorrow. Status: Chronic Assessment and plan: Dyspnea with pattern suggestive of volume overload. Progressive changes in the right lower lobe over the last several admissions possibly reflective of asymmetric pulmonary edema Current Visit: Yes (2) Valvular heart disease Status: Chronic Assessment and plan: 2016 mitral and aortic valve replacement with single-vessel right coronary artery bypass graft. Current Visit: Yes Hospitalist: Subjective Interval history: 61-year-old female end-stage renal disease who earlier in the year had undergone replacement of the mitral and aortic valve with single saphenous vein bypass graft to the right coronary artery. She was systemically anticoagulated due to the presence of mechanical heart valves developing symptomatic anemia with extensive evaluation in February. She was found to have AV malformations. She presented on this occasion with increased levels of shortness of breath. Her chest x-ray shows chronic changes particularly in the right lower lobe over the last several admissions. On this occasion however the patient demonstrates fluid in the minor fissure with more prominent lower lobe changes on the right side than previous. This is felt to be secondary to volume overload and dialysis intensity has been increased. Since admission her vital signs been stable she is afebrile. Oxygen saturation as recorded is highly variable. Her hemoglobin is unchanged significantly from discharge in March. INR slightly subtherapeutic at 1.8. She states that her breathing is much better. Exam - Constitutional Vitals: Period Temp Pulse Resp BP Sys/Vargas Pulse Ox Last 24 Hr 95.8 F-98.0 F 83-104 16-20 122-151/65-81 90-100 General appearance: normal weight - Respiratory Respiratory exam: Present: clear to auscultation bilaterally. Absent: rales, rhonchi, wheezes - Cardiovascular Cardiovascular exam: Present: regular rate and rhythm, other ([place] mechanical valve sounds no murmur) - GI/Abdominal GI/Abdominal exam: Present: normal bowel sounds. Absent: tenderness - Extremities Exam Extremities exam: Absent: edema - Neurological Exam Neurological exam: Present: alert, oriented X3 Results - Labs CBC & BMP: 04/25/17 05:34 04/25/17 05:34 Labs: Calcium 10.8 Total bilirubin 1.7
--- NOTE | 2017-04-25 16:26 | Pulmonology Consult Note ---
Assessment and Plan (1) Coronary artery disease Status: Acute Assessment and plan: Patient has coronary artery disease but is not having any angina now. Current Visit: Yes (2) Pneumonia Status: Acute Assessment and plan: Right lower lobe is a little denser than the rest of her lung. This area was much worse in January. This all could be related to her chronic heart failure. She could have some inflammation in the right base. She seems to be stable at present. This area will probably need to be followed. Current Visit: Yes (3) End-stage renal disease on hemodialysis Problem details: Pure ultrafiltration today, 2 hrs, 2-3L UF as tolerated. Next scheduled routine CHD tomorrow. Status: Chronic Assessment and plan: She is doing well after dialysis. Current Visit: Yes (4) Valvular heart disease Status: Chronic Assessment and plan: Patient has had aortic and mitral valve replacements. Current Visit: Yes (5) Anemia Status: Acute Assessment and plan: The hematocrit is 26 today. Current Visit: No (6) History of COPD Status: Chronic Assessment and plan: Patient has been a lifelong smoker and likely does have some COPD. She will continue with bronchodilator therapy. Current Visit: No History of Present Illness Chief complaint: Shortness of breath History of present illness: Ms. Betancourt is a 61 year old white female who has had serious medical problems. She has had previous aortic and mitral valve replacements. She has chronic kidney disease and is on dialysis now. She is a former smoker and likely has some COPD. She has had a history of diabetes has certainly been quite debilitated. She has had heart failure in the recent past and actually came in with what looks like some heart failure. She has been getting dialysis and is better. Her chest x-ray does show mild consolidation in her right base. She says she is not coughing up any phlegm. She does not think she has had any fever. She feels like she is a lot better since coming in and getting dialysis. Home Medications Medication Instructions Recorded Confirmed Type Budesonide/Formoterol 160-4.5 2 puffs INH BID 03/03/17 04/24/17 History [Symbicort 160-4.5] Cyclobenzaprine [Flexeril] 10 mg PO TID 03/03/17 04/24/17 History HYDROcodone/ACETAMIN 10-325 [[place] 10 mg PO TID 03/03/17 04/24/17 History 10-325] Montelukast Tab [Singulair Tab] 10 mg PO BEDTIME 03/03/17 04/24/17 History OLANZapine [Olanzapine] 2.5 mg PO BID 03/03/17 04/24/17 History Pantoprazole Tab [Protonix Tab] 40 mg PO BID 03/03/17 04/24/17 History Pravastatin [Pravachol] 20 mg PO BEDTIME 03/03/17 04/24/17 History Ranolazine [Ranexa] 1,000 mg PO BID 03/03/17 04/24/17 History Temazepam [Restoril] 15 mg PO BEDTIME 03/03/17 04/24/17 History Warfarin [Coumadin] 5 mg PO BEDTIME 03/03/17 04/24/17 History levETIRAcetam [Levetiracetam] 500 mg PO BID 03/03/17 04/24/17 History amLODIPine [Norvasc] 5 mg PO DAILY tablet 03/10/17 04/24/17 Rx Carvedilol [Coreg] 3.125 mg PO BID #0 tablet 04/04/17 04/24/17 Rx Aspirin EC Tab 81 mg PO DAILY 04/24/17 04/24/17 History Benzonatate [Tessalon] 100 mg PO TID PRN 04/24/17 04/24/17 History Calcium Acetate [Phoslo] 1,334 mg PO QID 04/24/17 04/24/17 History Cholestyramine/Aspartame 4 gm PO QOTHER DAY PRN 04/24/17 04/24/17 History [Cholestyramine Light Packet] Cinacalcet [Sensipar] 60 mg PO DAILY 04/24/17 04/24/17 History Levothyroxine Tab [Synthroid Tab] 100 mcg PO DAILY 04/24/17 04/24/17 History Linagliptin [Tradjenta] 5 mg PO DAILY 04/24/17 04/24/17 History Promethazine HCl 50 mg PO Q4-6H PRN 04/24/17 04/24/17 History clonazePAM TAB [KlonoPIN] 0.5 mg PO BID 04/24/17 04/24/17 History rOPINIRole [Requip] 1 mg PO BEDTIME 04/24/17 04/24/17 History Allergies Allergy/AdvReac Type Severity Reaction Status Date / Time Iodinated Contrast Media - Allergy RASH Verified 01/22/17 01:00 Oral and [Iodinated Contrast Media - IV Dye] Penicillins Allergy ANAPHYLAXIS Verified 01/22/17 01:00 aspirin AdvReac Nausea Verified 01/22/17 01:00 cephalexin [From Keflex] AdvReac Vomiting Verified 01/22/17 01:00 Sulfa (Sulfonamide AdvReac Vomiting Verified 01/22/17 01:00 Antibiotics) - Constitutional Constitutional: Present: fatigue, weakness, weight gain. Absent: chills, fever( s) - EENT Eyes: Absent: loss of vision Ears: Absent: decreased hearing Nose, mouth and throat: Absent: dysphagia, headache(s), nasal congestion, sinus pressure - Cardiovascular Cardiovascular: Present: dyspnea, edema, orthopnea. Absent: chest pain at rest - Respiratory Respiratory: Present: cough, wheezing. Absent: hemoptysis, pain on inspiration , change in phlegm color - Gastrointestinal Gastrointestinal: Present: melena. Absent: abdominal pain, change in bowel habits, dysphagia, nausea, vomiting - Genitourinary Genitourinary: Present: other (She is on dialysis.) - Neurological Neurological: Absent: abnormal speech, focal weakness, paresthesias Exam (Pulmonay) H&P - Constitutional Vitals: Period Temp Pulse Resp BP Sys/Vargas Pulse Ox Last 24 Hr 97 F-98.0 F 82-104 17-20 110-146/65-81 94-99 General appearance: no acute distress, other (She appears to be chronically ill. She is comfortable at rest.) - Head Head exam: Present: normal inspection, normocephalic - Eye Eye exam: Present: EOMI. Absent: scleral icterus Pupils: Present: NONI - ENT ENT exam: Present: normal exam - Neck Neck exam: Present: normal inspection. Absent: lymphadenopathy, thyromegaly - Respiratory Respiratory exam: Present: rales (She has minimal crackles in the bases.). Absent: accessory muscle use, wheezes - Cardiovascular Cardiovascular exam: Present: regular rate and rhythm, other (She has multiple valve clicks). Absent: gallop - GI/Abdominal GI/Abdominal exam: Present: normal bowel sounds, soft. Absent: organomegaly, tenderness - Extremities Exam Extremities exam: Absent: calf tenderness, edema - Neurological Exam Neurological exam: Present: alert, oriented X3, CN II-XII intact - Psychiatric Psychiatric exam: Present: normal affect - Skin Skin exam: Present: warm, dry Medical,Surgical,& Family Hx - Medical History Cardio: History of: Cardiac Dysrhythmia, CAD (CABG x 3 (November 2016)), Hypertension, Valvular Heart Disease (mechanical AVR & MVR), Cardiovascular Problems (impression recent aortic issue.) Psychological: History of: Anxiety Disorders, Depression Neurology: History of: Peripheral Neuropathy (FEET/TOES), Vertigo No history of: Dementia, Seizures Endocrine: History of: Diabetes Mellitus (IDDM) Rheumatology: History of;: Fibromyalgia Respiratory: History of: Asthma, COPD Renal: History of: Dialysis, Renal Failure (ESRD) Gastrointestinal: History of: GERD, Gastrointestinal Bleed Hematology: History of: Anemia, Bleeding Problems (high inr), Clotting Problems (pt states she had a clot "three or four years ago") No history of: Blood Transfusion Reaction Other: History of: Miscellaneous Medical Problems (Sinus surgery) No history of: Anesthesia Reactions - Surgical History Cardiac Surgeries: Sugical HX of: Cardiac Catheterization (NO STENTS PLACE), Cardiac Surgery (mechanical MVR and AVR) Thoracic Surgeries: Patient denies;: Organ Transplant HEENT Surgeries: Surgical HX of: Tonsilectomy & Adenoidectomy Abdominal Surgeries: Surgical HX of: Abdominal Surgery (COLON REMOVED), Cholecystectomy Reproductive Surgeries: Surgical HX of;: Gynecologic Surgery, Hysterectomy - Family History Family History: Reports;: Family Cancer (mother ovarian, sister breast), Family Diabetes (mother), Family Heart Disease (mother -[place]), Family Hypertension ( mother), Family Stroke (mother and brother) - Social History Smoking Status: Former smoker Frequency of Alcohol Use: None Type of Drug Use: None Results - Labs CBC & BMP: 04/25/17 05:34 04/25/17 05:34 - Diagnostic Findings Procedure: Chest x-ray: image reviewed by me, report reviewed by me (She has cardiomegaly and bilateral infiltrates. The right base is a little denser. The x-ray is actually better than it was in January)
[2017-04-25] MEDS: rOPINIRole 1 MG TABLET PO SCH (22:05)
[2017-04-25] MEDS: MONTELUKAST 10 MG TABLET PO SCH (22:06)
[2017-04-25] MEDS: WARFARIN 5 MG TABLET PO SCH (22:07)
[2017-04-25] MEDS: PRAVASTATIN 20 MG TABLET PO SCH (22:07)
[2017-04-25] MEDS: TEMAZEPAM 15 MG CAPSULE PO SCH (22:07)
[2017-04-25] MEDS: BENZONATATE 100 MG CAPSULE PO PRN (23:41)
[2017-04-26] MEDS: ALBUTEROL/IPRATROPIUM 3 ML NEB RESP TX SCH ×5 (03:13→19:09)
[2017-04-26 07:41] LABS: INR 1.6; PT Patient Result 17.6 SECS
[2017-04-26] MEDS: levETIRAcetam 500 MG TABLET PO SCH ×3 (07:47→21:07)
[2017-04-26] MEDS: clonazePAM 0.5 MG TABLET PO SCH ×3 (07:48→21:07)
[2017-04-26] MEDS: CINACALCET 30 MG TABLET PO SCH ×2 (07:48→09:02)
[2017-04-26] MEDS: RANOLAZINE 500 MG TABLET PO SCH ×3 (07:48→21:06)
[2017-04-26] MEDS: amLODIPine 5 MG TABLET PO SCH ×2 (07:49→09:02)
[2017-04-26] MEDS: sitaGLIPtin 25 MG TABLET PO SCH ×2 (07:49→09:02)
[2017-04-26] MEDS: CALCIUM ACETATE 667 MG CAPSULE PO SCH ×5 (07:49→21:06)
[2017-04-26] MEDS: OLANZapine 2.5 MG TABLET PO SCH ×3 (07:49→21:07)
[2017-04-26] MEDS: CYCLOBENZAPRINE 10 MG TABLET PO SCH ×4 (07:49→21:07)
[2017-04-26] MEDS: CARVEDILOL 3.125 MG TABLET PO SCH ×3 (07:49→21:07)
--- NOTE | 2017-04-26 07:51 | Hospitalist Progress Note ---
Assessment and Plan (1) End-stage renal disease on hemodialysis Problem details: Pure ultrafiltration today, 2 hrs, 2-3L UF as tolerated. Next scheduled routine CHD tomorrow. Status: Chronic Assessment and plan: Dyspnea with pattern suggestive of volume overload. Progressive changes in the right lower lobe over the last several admissions possibly reflective of asymmetric pulmonary edema Current Visit: Yes (2) Valvular heart disease Status: Chronic Assessment and plan: 2017 mitral and aortic valve replacement with single-vessel right coronary artery bypass graft. Chronic systemic anticoagulation with subtherapeutic INR. Most recent echocardiogram shows severe pulmonary hypertension with preserved LV systolic function. Current Visit: Yes Hospitalist: Subjective Interval history: 61-year-old female with end-stage renal disease who earlier this year had undergone replacement of the mitral and aortic valves with single saphenous vein bypass graft to the right coronary artery. She was anticoagulated to do the mechanical heart valves developing symptomatic anemia in February. She was found to have AV malformations but no other active bleeding site. She was admitted on this occasion with increasing shortness of breath with her chest x- ray showing changes consistent with volume overload. Since admission she has undergone aggressive dialysis with fluid removal and marked symptomatic improvement. Her echocardiogram performed in January demonstrated a 60% ejection fraction however her right ventricular systolic pressure was calculated at 70- 75 mmHg. Her INR has been consistently subtherapeutic subsequent to admission on 5 mg daily of Coumadin. Overnight blood pressure has been stable she has been afebrile. Exam - Constitutional Vitals: Period Temp Pulse Resp BP Sys/Vargas Pulse Ox Last 24 Hr 96.3 F-98.3 F 82-91 17-20 110-127/58-69 94-99 General appearance: normal weight - Respiratory Respiratory exam: Present: clear to auscultation bilaterally. Absent: rales, rhonchi, wheezes - Cardiovascular Cardiovascular exam: Present: regular rate and rhythm, systolic murmur ( Prosthetic flow murmur), other (crisp valve sounds) - GI/Abdominal GI/Abdominal exam: Present: normal bowel sounds. Absent: tenderness - Extremities Exam Extremities exam: Absent: edema - Neurological Exam Neurological exam: Present: alert, oriented X3 Results - Labs CBC & BMP: 04/25/17 05:34 04/25/17 05:34 Labs: INR 1.6
[2017-04-26] MEDS: BENZONATATE 100 MG CAPSULE PO PRN ×2 (07:54→21:37)
[2017-04-26] MEDS: ASPIRIN EC 81 MG TABLET PO SCH (09:01)
--- NOTE | 2017-04-26 09:01 | Pulmonology Progress Note ---
Pulmonary - PN: Subj Interval history: Patient is a 61-year-old white lady that has had numerous medical problems. She has had a previous mitral valve replacement and aortic valve replacement and has a cardiomyopathy. She likely has some COPD and is been a smoker. She has end-stage renal disease and is on dialysis. Her chest x-ray does look like heart failure although she may have some consolidation in the right base. She says she is feeling better today. She is on dialysis now and is not short of breath. She says she has a minimal cough. She is not having any chest pain. Exam (Progress Note) - Constitutional Vitals: Period Temp Pulse Resp BP Sys/Vargas Pulse Ox Last 24 Hr 96.3 F-98.3 F 82-91 17-20 110-124/58-69 94-99 Exam: General appearance: no acute distress, other (She appears to be chronically ill. She is comfortable at rest. She is doing well on dialysis now.) - Head Head exam: Present: normal inspection, normocephalic - Eye Eye exam: Present: EOMI. Absent: scleral icterus Pupils: Present: NONI - ENT ENT exam: Present: normal exam - Neck Neck exam: Present: normal inspection. Absent: lymphadenopathy, thyromegaly - Respiratory Respiratory exam: Present: Her lungs have fairly good breath sounds without any wheezing. She has some very minimal crackles in the bases. - Cardiovascular Cardiovascular exam: Present: regular rate and rhythm, other (She has multiple valve clicks). Absent: gallop - GI/Abdominal GI/Abdominal exam: Present: normal bowel sounds, soft. Absent: organomegaly, tenderness - Extremities Exam Extremities exam: Absent: calf tenderness, edema, her legs are not swollen at all now - Neurological Exam Neurological exam: Present: alert, oriented X3, CN II-XII intact - Psychiatric Psychiatric exam: Present: normal affect - Skin Skin exam: Present: warm, dry Results - Labs CBC & BMP: 04/25/17 05:34 04/25/17 05:34 Assessment and Plan (1) Coronary artery disease Status: Acute Assessment and plan: Patient has coronary artery disease but is not having any angina now. Current Visit: Yes (2) Pneumonia Status: Acute Assessment and plan: Right lower lobe is a little denser than the rest of her lung. This area was much worse in January. This all could be related to her chronic heart failure. She could have some inflammation in the right base. She says she is breathing much better. Will repeat a chest x-ray tomorrow. Current Visit: Yes (3) End-stage renal disease on hemodialysis Problem details: Pure ultrafiltration today, 2 hrs, 2-3L UF as tolerated. Next scheduled routine CHD tomorrow. Status: Chronic Assessment and plan: She is on dialysis and she feels like her volume status is getting better. Current Visit: Yes (4) Valvular heart disease Status: Chronic Assessment and plan: Patient has had aortic and mitral valve replacements. Current Visit: Yes (5) Anemia Status: Acute Assessment and plan: The hematocrit is 26 . Current Visit: No (6) History of COPD Status: Chronic Assessment and plan: Patient has been a lifelong smoker and likely does have some COPD. She will continue with bronchodilator therapy. She feels like she is breathing okay. Current Visit: No
[2017-04-26] MEDS: BUDESONIDE/FORMOTEROL 160-4.5 INHALER 6 GM INH SCH ×2 (09:02→21:09)
[2017-04-26] MEDS: LEVOTHYROXINE 100 MCG TABLET PO SCH (09:02)
[2017-04-26] MEDS: PANTOPRAZOLE 40 MG TABLET PO SCH ×2 (09:02→21:07)
[2017-04-26] MEDS: LEVOFLOXACIN INJ 250 MG in PREMIX 1 EACH IV SCH (09:42)
--- NOTE | 2017-04-26 09:53 | Dialysis Note ---
Dialysis Note - Dialysis Note S: PT seen on dialysis. States she feels better than in a long time. Slept well. TOlerated pure ultrafiltration yesterday 3L removed. O: VSS A: ESRD on CHD. Tolerating well s complictions. P: Stable for d/c after HD. Next planned HD Sunday.
--- NOTE | 2017-04-26 10:06 | Gastrointestinal Progress Note ---
Assessment and Plan (1) Symptomatic anemia Status: Resolved Assessment and plan: 04/26-no overt bleeding reported. Tolerating diet well. H&H is pending for this morning. Continue to monitor present time. Plan an addendum to follow Dr. Luke. 04/25-Onset of SOB and weakness with findings on admission of pneumonia and anemia without reports of overt bleeding. Hx of ESRD on dialysis. Hx of anemia with multiple transfusions in the past. Received 2 units PRBC on admission for HH 04/06 now up to 05/12. Check stools for occult blood. Plan and addendum to follow by Dr Luke. Current Visit: No Gastroenterology - PN: Subj Interval history: CC: Anemia Pt is awake and alert seen in dialysis morning. Patient states she had an uneventful night and rested well overnight. She denies any overt bleeding this morning. Abdomen is soft, nontender. She states that she has a good appetite is tolerating her diet well at this time. No repeat labs noted however ordered H&H and this is still pending at this time. INR is down to 1.6. ROS: Denies shortness of breath or chest pain. Exam (Progress Note) - Constitutional Vitals: Period Temp Pulse Resp BP Sys/Vargas Pulse Ox Last 24 Hr 96.3 F-98.3 F 82-91 17-20 110-126/58-69 94-99 - Other Additional findings: General appearance: normal weight, no acute distress - Head Head exam: Present: normal inspection, normocephalic - Eye Eye exam: Present: other (lids and conjunctiva unremarkable). Absent: scleral icterus - ENT ENT exam: Present: normal exam, normal oropharynx - Neck Neck exam: Present: normal inspection - Respiratory Respiratory exam: Present: clear to auscultation bilaterally. Absent: rales, rhonchi, wheezes - Cardiovascular Cardiovascular exam: Present: regular rate and rhythm. Absent: diastolic murmur , JVD, systolic murmur - GI/Abdominal GI/Abdominal exam: Present: normal bowel sounds, soft. Absent: ascites, distended, mass, organomegaly, tenderness - Extremities Exam Extremities exam: Present: normal inspection, full ROM - Back Exam Back exam: Present: normal inspection - Neurological Exam Neurological exam: Present: alert, oriented X3 - Psychiatric Psychiatric exam: Present: normal affect, normal mood - Skin Skin exam: Present: normal color, warm, dry Results - Labs CBC & BMP: 04/25/17 05:34 04/25/17 05:34 Lab Results: I have reviewed the past 24 hour labs
--- NOTE | 2017-04-26 13:18 | Physician Query Form ---
CLICK EDIT DOCUMENT TO SELECT QUERY ANSWER --> OK --> SIGN Samira Linares RN Clinical Compensation Advisor W) [phone] (f) [phone] [email or web address] PROVIDERS: Make your selection(s) from the choices in EACH section by typing an "x" and enter comments in the comment section. Please use your independent medical judgment in providing your response. This request does not imply that any particular answer is desired or expected. CLINICAL INDICATORS: (Providers should not edit this section) Based on documentation of "Anemia" "Patient says she had melena, last night, and there was bright red blood in her stool this morning" Transfused 2 units PRBC. Based on the above, could you clarify which of the following conditions you are evaluating, treating, and/or monitoring? ( ) Blood loss anemia ( ) acute ( ) chronic ( ) acute on chronic ( ) Acute blood loss anemia on baseline chronic anemia ( ) Acute blood loss anemia as a complication of a procedure ( ) Iron deficiency anemia not associated with blood loss ( ) Dilutional anemia due to IV fluids ( x) Anemia due to chronic kidney disease ( ) Hemolytic anemia ( ) immune ( ) non-immune - please specify cause: ( ) Anemia due to other condition, please specify: ( ) Clinically unable to determine COMMENTS: PLEASE ALSO DOCUMENT RESPONSE IN PROGRESS NOTES AND/OR DISCHARGE SUMMARY Use of terms such as suspected, likely, or probable (associated with a specific diagnosis that is being evaluated, monitored, or treated as if it exists) are acceptable and can be restated in the discharge summary if not ruled out. MTDD
--- NOTE | 2017-04-26 13:22 | Physician Query Form ---
CLICK EDIT DOCUMENT TO SELECT QUERY ANSWER --> OK --> SIGN Samira Linares RN Clinical Taxonomy Teacher W) [phone] (f) [phone] [email or web address] PROVIDERS: Make your selection(s) from the choices in EACH section by typing an "x" and enter comments in the comment section. Please use your independent medical judgment in providing your response. This request does not imply that any particular answer is desired or expected. CLINICAL INDICATORS: (Providers should not edit this section) Based on documentation of "Anemia" "Patient says she had melena, last night, and there was bright red blood in her stool this morning" "She is on chronic anticoagulation for prosthetic aortic and mitral valves. Her INR was 2.0 on admission." "Lower GI bleeding" Transfused 2 units PRBC. Based on the above, could you clarify the appropriate diagnosis, if significant , that supports the above abnormalities and additional evaluation, monitoring, and/or treatment rendered: ( ) Lower GI Bleed due to Extrinsic Anticoagulation ( ) Lower GI Bleed NOT due to Extrinsic Anticoagulation ( ) Other, please specify: (x) Clinically unable to determine COMMENTS: PLEASE ALSO DOCUMENT RESPONSE IN PROGRESS NOTES AND/OR DISCHARGE SUMMARY Use of terms such as suspected, likely, or probable (associated with a specific diagnosis that is being evaluated, monitored, or treated as if it exists) are acceptable and can be restated in the discharge summary if not ruled out. MTDD
[2017-04-26 15:45] LABS: Hematocrit 27.1 VOL% (35.7-47.0)
[2017-04-26] MEDS ORDERED: SODIUM CHLORIDE 0.9% 500 ML IV ONE (15:55)
[2017-04-26] MEDS: WARFARIN 7.5 MG TABLET PO SCH (17:57)
[2017-04-26] MEDS: rOPINIRole 1 MG TABLET PO SCH (21:06)
[2017-04-26] MEDS: MONTELUKAST 10 MG TABLET PO SCH (21:07)
[2017-04-26] MEDS: PRAVASTATIN 20 MG TABLET PO SCH (21:07)
[2017-04-26] MEDS: TEMAZEPAM 15 MG CAPSULE PO SCH (21:07)
[2017-04-27] MEDS: ALBUTEROL/IPRATROPIUM 3 ML NEB RESP TX SCH ×6 (00:42→23:04)
[2017-04-27] MEDS: ACETAMINOPHEN 325 MG TABLET PO PRN (04:21)
[2017-04-27 05:22] LABS: INR 1.6; PT Patient Result 17.8 SECS
--- NOTE | 2017-04-27 08:06 | Gastrointestinal Progress Note ---
Assessment and Plan (1) Symptomatic anemia Status: Resolved Assessment and plan: 04/27-no reports of overt bleeding. H&H: Stable. Coumadin restarted. INR 1.6. Continue to monitor this time. Plan an addendum follow Dr. Luke. 04/26-no overt bleeding reported. Tolerating diet well. H&H is pending for this morning. Continue to monitor present time. Plan an addendum to follow Dr. Luke. 04/25-Onset of SOB and weakness with findings on admission of pneumonia and anemia without reports of overt bleeding. Hx of ESRD on dialysis. Hx of anemia with multiple transfusions in the past. Received 2 units PRBC on admission for HH 04/06 now up to 05/12. Check stools for occult blood. Plan and addendum to follow by Dr Luke. Current Visit: No Gastroenterology - PN: Subj Interval history: CC: Anemia Patient is seen, awake and alert sitting up in bed. States she had an uneventful night and rested well. She denies any overt bleeding. Abdomen soft , nontender. H&H was noted to be stabilized on 06/13 and INR is holding at 1.6. She is tolerating her diet well. Coumadin was restarted on yesterday. ROS: Denies shortness breath or chest pain Exam (Progress Note) - Constitutional Vitals: Period Temp Pulse Resp BP Sys/Vargas Pulse Ox Last 24 Hr 97.3 F-98.0 F 72-80 18-18 86-114/50-64 97-99 General appearance: normal weight, no acute distress - Head Head exam: Present: normal inspection, normocephalic - Eye Eye exam: Present: other (Lids and conjunctive are unremarkable). Absent: scleral icterus - ENT ENT exam: Present: normal exam, normal oropharynx - Neck Neck exam: Present: normal inspection - Respiratory Respiratory exam: Present: clear to auscultation bilaterally. Absent: rales, rhonchi, wheezes - Cardiovascular Cardiovascular exam: Present: regular rate and rhythm. Absent: diastolic murmur , JVD, systolic murmur - GI/Abdominal GI/Abdominal exam: Present: normal bowel sounds, soft. Absent: ascites, distended, mass, organomegaly, tenderness - Extremities Exam Extremities exam: Present: normal inspection, full ROM - Back Exam Back exam: Present: normal inspection - Neurological Exam Neurological exam: Present: alert, oriented X3 - Psychiatric Psychiatric exam: Present: normal affect, normal mood - Skin Skin exam: Present: normal color, warm, dry Results - Labs CBC & BMP: 04/26/17 14:21 04/25/17 05:34 Lab Results: I have reviewed the past 24 hour labs
--- NOTE | 2017-04-27 08:22 | XRay Report ---
XR chest 2V Indication: Bilateral pulmonary infiltrates Comparison: 24 April 2017 Findings: The heart and mediastinum are stable in size and configuration cardiac surgery changes. The pulmonary vascularity is decreased with decreasing interstitial lung density. No other lung infiltrates, effusions, pneumothorax or other abnormality is demonstrated. Impression: Findings suggest improving cardiac decompensation. PROCEDURE INTERPRETED AT [facility] DEPARTMENT OF RADIOLOGY Final Report Signed by: Dr. Chris Schneider
[2017-04-27] MEDS: PANTOPRAZOLE 40 MG TABLET PO SCH ×2 (08:42→21:15)
[2017-04-27] MEDS: levETIRAcetam 500 MG TABLET PO SCH ×2 (08:42→21:15)
[2017-04-27] MEDS: amLODIPine 5 MG TABLET PO SCH (08:42)
[2017-04-27] MEDS: RANOLAZINE 500 MG TABLET PO SCH ×2 (08:42→21:14)
[2017-04-27] MEDS: sitaGLIPtin 25 MG TABLET PO SCH (08:42)
[2017-04-27] MEDS: CINACALCET 30 MG TABLET PO SCH (08:42)
[2017-04-27] MEDS: CALCIUM ACETATE 667 MG CAPSULE PO SCH ×6 (08:43→21:14)
[2017-04-27] MEDS: BUDESONIDE/FORMOTEROL 160-4.5 INHALER 6 GM INH SCH ×2 (08:43→21:20)
[2017-04-27] MEDS: clonazePAM 0.5 MG TABLET PO SCH ×2 (08:43→21:15)
[2017-04-27] MEDS: ASPIRIN EC 81 MG TABLET PO SCH (08:43)
[2017-04-27] MEDS: CYCLOBENZAPRINE 10 MG TABLET PO SCH ×3 (08:43→21:15)
[2017-04-27] MEDS: OLANZapine 2.5 MG TABLET PO SCH ×2 (08:43→21:15)
[2017-04-27] MEDS: LEVOTHYROXINE 100 MCG TABLET PO SCH (08:43)
[2017-04-27] MEDS: CARVEDILOL 3.125 MG TABLET PO SCH ×2 (08:43→21:15)
--- NOTE | 2017-04-27 09:05 | Pulmonology Progress Note ---
Pulmonary - PN: Subj Interval history: Patient is a 61-year-old white lady that has had numerous medical problems. She has had a previous mitral valve replacement and aortic valve replacement and has a cardiomyopathy. She likely has some COPD and is been a smoker. She has end-stage renal disease and is on dialysis. Her chest x-ray does look like heart failure although she may have some consolidation in the right base. She has done well with dialysis and she feels like her breathing and swelling are better. She is not coughing much now and denies shortness of breath. Her chest x-ray is markedly improved. The right lower lobe infiltrate has resolved. Exam (Progress Note) - Constitutional Vitals: Period Temp Pulse Resp BP Sys/Vargas Pulse Ox Last 24 Hr 97.3 F-98.0 F 72-80 18-18 86-114/50-64 97-99 Exam: General appearance: no acute distress, other (She appears to be chronically ill. She is comfortable at rest. She looks like she is breathing better.) - Head Head exam: Present: normal inspection, normocephalic - Eye Eye exam: Present: EOMI. Absent: scleral icterus Pupils: Present: NONI - ENT ENT exam: Present: normal exam - Neck Neck exam: Present: normal inspection. Absent: lymphadenopathy, thyromegaly - Respiratory Respiratory exam: Present: Her lungs have fairly good breath sounds without any wheezing. She is moving air well and her lungs sound much clearer now. - Cardiovascular Cardiovascular exam: Present: regular rate and rhythm, other (She has multiple valve clicks). Absent: gallop - GI/Abdominal GI/Abdominal exam: Present: normal bowel sounds, soft. Absent: organomegaly, tenderness - Extremities Exam Extremities exam: Absent: calf tenderness, edema, her legs are not swollen at all now - Neurological Exam Neurological exam: Present: alert, oriented X3, CN II-XII intact - Psychiatric Psychiatric exam: Present: normal affect - Skin Skin exam: Present: warm, dry Results - Labs CBC & BMP: 04/26/17 14:21 04/25/17 05:34 - Diagnostic Findings Procedure: Chest x-ray: image reviewed by me, report reviewed by me (Chest x- ray is much better. The pulmonary edema has resolved. The right lower lobe infiltrate has resolved.) Assessment and Plan (1) Coronary artery disease Status: Acute Assessment and plan: Patient has coronary artery disease but is not having any angina now. Current Visit: Yes (2) Pneumonia Status: Acute Assessment and plan: Right lower lobe is a little denser than the rest of her lung. This area was much worse in January. She is not having any symptoms of pneumonia now. Her chest x-ray is much better. Most of the infiltrates were due to heart failure. Current Visit: Yes (3) End-stage renal disease on hemodialysis Problem details: Pure ultrafiltration today, 2 hrs, 2-3L UF as tolerated. Next scheduled routine CHD tomorrow. Status: Chronic Assessment and plan: She is on dialysis and she feels like her volume status is getting better. Current Visit: Yes (4) Valvular heart disease Status: Chronic Assessment and plan: Patient has had aortic and mitral valve replacements. Current Visit: Yes (5) Anemia Status: Acute Assessment and plan: The hematocrit is 27 . Current Visit: No (6) History of COPD Status: Chronic Assessment and plan: Patient has been a lifelong smoker and likely does have some COPD. She will continue with bronchodilator therapy. She feels like she is breathing okay. Current Visit: No (7) Congestive heart failure Status: Acute Assessment and plan: The patient's chest x-ray is mainly consistent with heart failure. She did well with dialysis and her breathing is better. Her chest x-ray is much better. From a pulmonary standpoint she can go home. Current Visit: Yes Qualifiers: Congestive heart failure type: diastolic
--- NOTE | 2017-04-27 09:08 | Hospitalist Progress Note ---
Assessment and Plan (1) End-stage renal disease on hemodialysis Problem details: Pure ultrafiltration today, 2 hrs, 2-3L UF as tolerated. Next scheduled routine CHD tomorrow. Status: Chronic Assessment and plan: Dyspnea with pattern suggestive of volume overload. Progressive changes in the right lower lobe over the last several admissions possibly reflective of asymmetric pulmonary edema Current Visit: Yes (2) Valvular heart disease Status: Chronic Assessment and plan: 2017 mitral and aortic valve replacement with single-vessel right coronary artery bypass graft. Chronic systemic anticoagulation with subtherapeutic INR. Most recent echocardiogram shows severe pulmonary hypertension with preserved LV systolic function. Current Visit: Yes Hospitalist: Subjective Interval history: 61-year-old female with end-stage renal disease who earlier in the year and undergone replacement of mitral and aortic valves with single saphenous vein bypass graft to the right coronary artery. She was anticoagulated and developed symptomatic anemia in February. She was found to have AV malformations but no other active bleeding site. She presented with increased shortness of breath with radiographic changes associated with volume overload. Her main echocardiogram that showed left ventricular ejection fraction 60% with right ventricular systolic pressure of 70-75 mmHg. Dialysis intensity has been augmented. She is symptomatically improved and today's chest x-ray shows significant improvement in the radiographic changes. She continues to have a subtherapeutic INR her hemoglobin is stable. Exam - Constitutional Vitals: Period Temp Pulse Resp BP Sys/Vargas Pulse Ox Last 24 Hr 97.3 F-98.0 F 72-80 18-18 86-114/50-64 97-99 General appearance: normal weight - Respiratory Respiratory exam: Present: clear to auscultation bilaterally. Absent: rales, rhonchi, wheezes - Cardiovascular Cardiovascular exam: Present: regular rate and rhythm, other ([place] valve sounds ) - GI/Abdominal GI/Abdominal exam: Present: normal bowel sounds. Absent: tenderness - Extremities Exam Extremities exam: Absent: edema - Neurological Exam Neurological exam: Present: alert, oriented X3 Results - Labs CBC & BMP: 04/26/17 14:21 04/25/17 05:34 Labs: INR 1.6 - Diagnostic Findings Procedure: Chest x-ray: image reviewed by me (Near complete resolution of the right lower lobe changes resolution of minor fissure fluid)
--- NOTE | 2017-04-27 12:14 | Nephrology Progress Note ---
Nephrology - PN: Subj Interval history: PT states she feels well. Another great night of sleep. Had near syncope after HD yesterday responded to 500cc NS. INR subtherapeutic at 1.6. Exam (PN)-Nephrology - Vital Signs Vital signs: Period Temp Pulse Resp BP Sys/Vargas Pulse Ox Last 24 Hr 96.0 F-98.0 F 72-82 17-18 86-114/50-64 92-99 - General Appearance General appearance: well-developed, chronically ill EENT: ATNC, PERRL Neck: no JVD, no thyromegaly Respiratory: no kyphosis, clear Cardiology: no murmurs, no rub, no edema Gastrointestinal: normoactive bowel sounds, no tenderness Integumentary: no rash, warm and dry Neurologic: no focal deficit, no asterixis, alert and oriented x3 Musculoskeletal: no deformities, no erythema Psychiatric: mood/affect appropriate, cooperative - Lab 04/26/17 14:21 04/25/17 05:34 Most recent lab results Calcium 10.8 MG/DL (8.5-10.1) H 04/25/17 05:34 Magnesium 2.1 MG/DL (1.8-2.4) 04/25/17 05:34 Assessment and Plan (1) End-stage renal disease on hemodialysis Problem details: Next scheduled routine CHD tomorrow. Status: Chronic Current Visit: Yes (2) Chronic anticoagulation Status: Chronic Assessment and plan: D/C once INR at goal. High risk for thrombosis with MVR. Current Visit: No (3) History of coronary artery bypass graft x 1 Status: Chronic Current Visit: No (4) History of mitral valve replacement with mechanical valve Status: Chronic Current Visit: No
[2017-04-27] MEDS: WARFARIN 7.5 MG TABLET PO SCH (17:07)
[2017-04-27] MEDS: TEMAZEPAM 15 MG CAPSULE PO SCH (21:15)
[2017-04-27] MEDS: rOPINIRole 1 MG TABLET PO SCH (21:15)
[2017-04-27] MEDS: MONTELUKAST 10 MG TABLET PO SCH (21:15)
[2017-04-27] MEDS: PRAVASTATIN 20 MG TABLET PO SCH (21:20)
[2017-04-27] MEDS: BENZONATATE 100 MG CAPSULE PO PRN (23:01)
[2017-04-28] MEDS: ALBUTEROL/IPRATROPIUM 3 ML NEB RESP TX SCH ×6 (03:23→23:42)
[2017-04-28 06:12] LABS: INR 1.8
--- NOTE | 2017-04-28 06:53 | Hospitalist Progress Note ---
Assessment and Plan (1) End-stage renal disease on hemodialysis Problem details: Next scheduled routine CHD tomorrow. Status: Chronic Assessment and plan: Dyspnea with pattern suggestive of volume overload. Progressive changes in the right lower lobe over the last several admissions possibly reflective of asymmetric pulmonary edema. Radiographic abnormalities and symptoms have improved with intensification of dialysis. Current Visit: Yes (2) Valvular heart disease Status: Chronic Assessment and plan: 2016 mitral and aortic valve replacement with single-vessel right coronary artery bypass graft. Chronic systemic anticoagulation with subtherapeutic INR. Most recent echocardiogram shows severe pulmonary hypertension with preserved LV systolic function. Current Visit: Yes (3) Chronic anticoagulation Status: Chronic Assessment and plan: Episode of GI bleeding in February with AV malformations. Current INR is subtherapeutic however recent guaiac negative. Warfarin has been increased with follow-up INR. Current Visit: No Hospitalist: Subjective Interval history: 61-year-old female established end-stage renal disease on chronic renal replacement therapy had under gone replacement of the mitral and aortic valves with saphenous vein bypass graft to the right coronary artery earlier this year. She had presented in February on anticoagulation with symptomatic anemia evaluation demonstrated AV malformations but no active bleeding site. On this occasion she presented with increasing shortness of breath with radiographic changes compatible with volume overload. Her echocardiogram in January showed left ventricular ejection fraction 60% with right ventricular systolic pressure of 70 -75 mmHg. Since admission she has undergone repetitive dilated L with fluid removal. Chest x-ray on 27 April showed significant improvement with resolution of the fluid in the minor fissure. Her INR dropped to subtherapeutic and Coumadin dose has been augmented with stool guaiac demonstrating no occult blood. She is comfortable off oxygen at this time with stable vital signs. Exam - Constitutional Vitals: Period Temp Pulse Resp BP Sys/Vargas Pulse Ox Last 24 Hr 96.0 F-97.9 F 75-86 16-19 105-123/53-63 92-99 General appearance: normal weight - Respiratory Respiratory exam: Present: clear to auscultation bilaterally. Absent: rales, rhonchi, wheezes - Cardiovascular Cardiovascular exam: Present: regular rate and rhythm, systolic murmur ( Prosthetic flow murmur), other ([place] prosthetic valve sounds) - GI/Abdominal GI/Abdominal exam: Present: normal bowel sounds. Absent: tenderness - Extremities Exam Extremities exam: Absent: edema - Neurological Exam Neurological exam: Present: alert, oriented X3 Results - Labs CBC & BMP: 04/26/17 14:21 04/25/17 05:34 Labs: INR 1.8
[2017-04-28] MEDS: CARVEDILOL 3.125 MG TABLET PO SCH ×2 (08:06→20:48)
[2017-04-28] MEDS: LEVOTHYROXINE 100 MCG TABLET PO SCH (08:06)
[2017-04-28] MEDS: clonazePAM 0.5 MG TABLET PO SCH ×2 (08:06→20:48)
[2017-04-28] MEDS: levETIRAcetam 500 MG TABLET PO SCH ×2 (08:06→20:48)
[2017-04-28] MEDS: PANTOPRAZOLE 40 MG TABLET PO SCH ×2 (08:06→20:48)
[2017-04-28] MEDS: RANOLAZINE 500 MG TABLET PO SCH ×2 (08:06→20:48)
[2017-04-28] MEDS: CINACALCET 30 MG TABLET PO SCH (08:06)
[2017-04-28] MEDS: CYCLOBENZAPRINE 10 MG TABLET PO SCH ×3 (08:07→20:48)
[2017-04-28] MEDS: BUDESONIDE/FORMOTEROL 160-4.5 INHALER 6 GM INH SCH ×2 (08:07→20:49)
[2017-04-28] MEDS: CALCIUM ACETATE 667 MG CAPSULE PO SCH ×4 (08:07→20:50)
[2017-04-28] MEDS: BENZONATATE 100 MG CAPSULE PO PRN ×3 (08:07→20:48)
[2017-04-28] MEDS: OLANZapine 2.5 MG TABLET PO SCH ×2 (08:07→20:48)
[2017-04-28] MEDS: sitaGLIPtin 25 MG TABLET PO SCH (08:07)
[2017-04-28] MEDS: ASPIRIN EC 81 MG TABLET PO SCH (08:07)
[2017-04-28] MEDS: amLODIPine 5 MG TABLET PO SCH (08:07)
[2017-04-28] MEDS: LEVOFLOXACIN INJ 250 MG in PREMIX 1 EACH IV SCH ×2 (08:10→10:18)
--- NOTE | 2017-04-28 13:45 | Dialysis Note ---
Dialysis Note - Dialysis Note Patient seen on dialysis. She is tolerating the procedure. Blood pressure is 139/77. Cardiovascular is regular rate. Lungs are clear to auscultation. Abdomen is soft. INR today is noted be 1.8.
[2017-04-28] MEDS: WARFARIN 7.5 MG TABLET PO SCH ×2 (16:56→17:35)
[2017-04-28] MEDS: rOPINIRole 1 MG TABLET PO SCH (20:48)
[2017-04-28] MEDS: PRAVASTATIN 20 MG TABLET PO SCH (20:48)
[2017-04-28] MEDS: MONTELUKAST 10 MG TABLET PO SCH (20:48)
[2017-04-28] MEDS: TEMAZEPAM 15 MG CAPSULE PO SCH (20:48)
[2017-04-29] MEDS: ALBUTEROL/IPRATROPIUM 3 ML NEB RESP TX SCH ×5 (01:40→19:41)
[2017-04-29] MEDS: ACETAMINOPHEN 325 MG TABLET PO PRN ×2 (06:10→15:22)
[2017-04-29 06:50] LABS: INR 1.8; PT Patient Result 19.6 SECS
[2017-04-29] MEDS: ASPIRIN EC 81 MG TABLET PO SCH (08:20)
[2017-04-29] MEDS: CARVEDILOL 3.125 MG TABLET PO SCH ×2 (08:20→20:26)
[2017-04-29] MEDS: sitaGLIPtin 25 MG TABLET PO SCH (08:20)
[2017-04-29] MEDS: OLANZapine 2.5 MG TABLET PO SCH ×2 (08:20→20:25)
[2017-04-29] MEDS: amLODIPine 5 MG TABLET PO SCH (08:20)
[2017-04-29] MEDS: CINACALCET 30 MG TABLET PO SCH (08:20)
[2017-04-29] MEDS: CYCLOBENZAPRINE 10 MG TABLET PO SCH ×3 (08:20→20:26)
[2017-04-29] MEDS: CALCIUM ACETATE 667 MG CAPSULE PO SCH ×5 (08:20→22:44)
[2017-04-29] MEDS: RANOLAZINE 500 MG TABLET PO SCH ×2 (08:20→20:26)
[2017-04-29] MEDS: clonazePAM 0.5 MG TABLET PO SCH ×2 (08:20→20:26)
[2017-04-29] MEDS: LEVOTHYROXINE 100 MCG TABLET PO SCH (08:20)
[2017-04-29] MEDS: levETIRAcetam 500 MG TABLET PO SCH ×2 (08:20→20:26)
[2017-04-29] MEDS: PANTOPRAZOLE 40 MG TABLET PO SCH ×2 (08:22→20:26)
[2017-04-29] MEDS: BUDESONIDE/FORMOTEROL 160-4.5 INHALER 6 GM INH SCH ×2 (08:23→20:25)
--- NOTE | 2017-04-29 08:49 | Hospitalist Progress Note ---
Assessment and Plan - Time spent with patient Time spent with patient: Greater than 30 minutes (Pt is new to me. Chart reviewed by me today. I discussed with Pt and RN in regarding her clinical status today.) (1) Chronic anticoagulation Status: Chronic Assessment and plan: INR level in am. Monitor s/s of bleeding. Give one extra dose of coumadin 2mg tonight. Current Visit: No (2) ESRD on dialysis Problem details: No indication for HD at this time. Status: Chronic Assessment and plan: HD as scheduled. Current Visit: No (3) Anemia Status: Chronic Assessment and plan: Monitor H/H, transfuse if needed. Current Visit: No Qualifiers: Other causes of anemia: acute posthemorrhagic (4) Valvular heart disease Status: Chronic Assessment and plan: Hx of mitral and aortic valve replacement. Needs chronic AC. INR 1.8 today. Will give one extra dose coumadin of 2mg tonight Current Visit: Yes Hospitalist: Subjective Interval history: Tolerated HD well yesterday. No overnight acute event. Feeling better. Deny fever or dyspnea. INR 1.8 today. Coumadin 7.5mg given last night. Interval history: 61-year-old female established end-stage renal disease on chronic renal replacement therapy had under gone replacement of the mitral and aortic valves with saphenous vein bypass graft to the right coronary artery earlier this year. She had presented in February on anticoagulation with symptomatic anemia evaluation demonstrated AV malformations but no active bleeding site. On this occasion she presented with increasing shortness of breath with radiographic changes compatible with volume overload. Her echocardiogram in January showed left ventricular ejection fraction 60% with right ventricular systolic pressure of 70 -75 mmHg. Since admission she has undergone repetitive dilated L with fluid removal. Chest x-ray on 27 April showed significant improvement with resolution of the fluid in the minor fissure. Her INR dropped to subtherapeutic and Coumadin dose has been augmented with stool guaiac demonstrating no occult blood. She is comfortable off oxygen at this time with stable vital signs. 04/29/17: INR 1.8, one extra dose of coumadin 2mg tonight. Exam - Constitutional Vitals: Period Temp Pulse Resp BP Sys/Vargas Pulse Ox Last 24 Hr 96.7 F-98.6 F 78-106 16-20 101-139/50-77 97-100 Exam: General: Lying in bed supine. AAOx3. HEENT: NC AT EOMI, normal lips and gum. Lungs: B/l CTA Heart: +S1/S2, systolic murmur ABD; +BS, NT ND Skin: No edema Neuro: AAOx3 Results - Labs CBC & BMP: 04/26/17 14:21 04/25/17 05:34
[2017-04-29] MEDS: ONDANSETRON 4 MG/2 ML VIAL IV PRN ×2 (13:17→22:52)
--- NOTE | 2017-04-29 14:31 | Nephrology Progress Note ---
Nephrology - PN: Subj Interval history: Patient mentions that she has little nauseated has just received Zofran. She tolerated dialysis on yesterday. Coumadin has been adjusted. No other acute changes. Exam (PN)-Nephrology - Vital Signs Vital signs: Period Temp Pulse Resp BP Sys/Vargas Pulse Ox Last 24 Hr 97.0 F-98.6 F 78-106 16-20 101-130/50-67 97-100 - General Appearance General appearance: well-developed, well-nourished, fatigue EENT: ATNC Neck: supple Respiratory: clear Cardiology: no edema, regular rate, regular rhythm Gastrointestinal: normoactive bowel sounds, no tenderness Integumentary: no rash Neurologic: alert and oriented x3 Musculoskeletal: no clubbing Psychiatric: mood/affect appropriate - Lab 04/26/17 14:21 04/25/17 05:34 Most recent lab results Calcium 10.8 MG/DL (8.5-10.1) H 04/25/17 05:34 Magnesium 2.1 MG/DL (1.8-2.4) 04/25/17 05:34 Assessment and Plan (1) GI bleed Status: Resolved Current Visit: No (2) Fatigue Status: Chronic Current Visit: No (3) Coronary artery disease Status: Chronic Current Visit: No (4) Subtherapeutic international normalized ratio (INR) Status: Acute Assessment and plan: Coumadin dose being adjusted. Current Visit: No (5) End-stage renal disease on hemodialysis Problem details: Next scheduled routine CHD tomorrow. Status: Chronic Current Visit: Yes (6) History of mitral valve replacement with mechanical valve Status: Chronic Current Visit: No
[2017-04-29] MEDS: WARFARIN 7.5 MG TABLET PO SCH ×2 (16:40→17:42)
[2017-04-29] MEDS ORDERED: WARFARIN 4 MG TABLET PO ONE (18:00)
[2017-04-29] MEDS: PRAVASTATIN 20 MG TABLET PO SCH (20:26)
[2017-04-29] MEDS: TEMAZEPAM 15 MG CAPSULE PO SCH (20:26)
[2017-04-29] MEDS: PROMETHAZINE 25 MG TABLET PO PRN (20:26)
[2017-04-29] MEDS: rOPINIRole 1 MG TABLET PO SCH (20:26)
[2017-04-29] MEDS: MONTELUKAST 10 MG TABLET PO SCH (20:27)
[2017-04-30] MEDS: ALBUTEROL/IPRATROPIUM 3 ML NEB RESP TX SCH ×7 (00:40→23:00)
[2017-04-30] MEDS: BENZONATATE 100 MG CAPSULE PO PRN ×2 (00:52→20:44)
[2017-04-30] MEDS: PROMETHAZINE 25 MG TABLET PO PRN ×2 (02:34→09:39)
[2017-04-30 07:01] LABS: Basophils # 0.1 10*3/uL (0.0-0.2); Basophils % 0.7 % (0.0-0.8); Eosinophils # 0.2 10*3/uL (0.0-0.87); Eosinophils % 1.9 % (0.00-10.9); Hematocrit 24.8 VOL% (35.7-47.0); Hemoglobin 8.1 GM/DL (12.0-16.0); Immature Granulocytes % 0.4 %; Immature Granulocytes Absolute 0.03 #; Lymphocytes # 1.4 10*3/uL (1.4-4.0); Lymphocytes % 17.4 % (21.3-54.2); Mean Corpuscular HGB Conc 32.7 GM/DL (32-36); Mean Corpuscular Hemoglobin 31 PG (27-34); Mean Corpuscular Volume 96.1 FL (87-102); Mean Platelet Volume 10.4 FL (9.6-12.0); Monocytes # 0.5 10*3/uL (0.11-0.8); Monocytes % 5.7 % (1.7-12.7); Neutrophils # 6.1 10*3/uL (1.4-7.4); Neutrophils % 73.9 % (38.7-73.9); Platelet Count 189 T/CUMM (130-400); Red Blood Count 2.58 MC/CUMM (3.8-5.5); Red Cell Distribution Width 18.6 % (9.3-17.3); White Blood Count 8.2 T/CUMM (4-12)
[2017-04-30 07:16] LABS: INR 1.8; PT Patient Result 19.4 SECS
--- NOTE | 2017-04-30 09:02 | Pulmonology Progress Note ---
Pulmonary - PN: Subj Interval history: Patient is a 61-year-old white lady that has had numerous medical problems. She has had a previous mitral valve replacement and aortic valve replacement and has a cardiomyopathy. She likely has some COPD and is been a smoker. She has end-stage renal disease and is on dialysis. Her chest x-ray does look like heart failure although she may have some consolidation in the right base. She has done well with dialysis and she feels like her breathing and swelling are better. She is not coughing much now and denies shortness of breath. Her chest x-ray is markedly improved. She has done reasonably well over the weekend but is now having some loose stools. She is not having any breathing trouble still. She can probably stop her antibiotics. Exam (Progress Note) - Constitutional Vitals: Period Temp Pulse Resp BP Sys/Vargas Pulse Ox Last 24 Hr 96.2 F-97.8 F 75-86 16-20 114-138/54-65 90-100 Exam: General appearance: no acute distress, other (She appears to be chronically ill. She is comfortable at rest. She looks like she is breathing better. She looks like she is feeling okay today) - Head Head exam: Present: normal inspection, normocephalic - Eye Eye exam: Present: EOMI. Absent: scleral icterus Pupils: Present: NONI - ENT ENT exam: Present: normal exam - Neck Neck exam: Present: normal inspection. Absent: lymphadenopathy, thyromegaly - Respiratory Respiratory exam: Present: Her lungs have fairly good breath sounds without any wheezing. She is moving air well and her lungs sound much clearer now. - Cardiovascular Cardiovascular exam: Present: regular rate and rhythm, other (She has multiple valve clicks). Absent: gallop - GI/Abdominal GI/Abdominal exam: Present: She has hyperactive bowel sounds but her abdomen is soft . - Extremities Exam Extremities exam: Absent: calf tenderness, edema, her legs are not swollen at all now - Neurological Exam Neurological exam: Present: alert, oriented X3, CN II-XII intact - Psychiatric Psychiatric exam: Present: normal affect - Skin Skin exam: Present: warm, dry Results - Labs CBC & BMP: 04/30/17 04:35 04/25/17 05:34 Assessment and Plan (1) Coronary artery disease Status: Acute Assessment and plan: Patient has coronary artery disease but is not having any angina now. Current Visit: Yes (2) Pneumonia Status: Acute Assessment and plan: The patient's breathing is much better and her x-rays cleared. We will stop her antibiotics and she is having GI symptoms. Current Visit: Yes (3) End-stage renal disease on hemodialysis Problem details: Next scheduled routine CHD tomorrow. Status: Chronic Assessment and plan: She is on dialysis and she feels like her volume status is getting better. Current Visit: Yes (4) Valvular heart disease Status: Chronic Assessment and plan: Patient has had aortic and mitral valve replacements. Her heart failure is much better. Current Visit: Yes (5) Anemia Status: Acute Assessment and plan: The hematocrit is 24.8 . Current Visit: No (6) History of COPD Status: Chronic Assessment and plan: Patient has been a lifelong smoker and likely does have some COPD. She will continue with bronchodilator therapy. She feels like she is breathing okay. Current Visit: No (7) Congestive heart failure Status: Acute Assessment and plan: The patient's chest x-ray is mainly consistent with heart failure. She did well with dialysis and her breathing is better. Her chest x-ray is much better. From a pulmonary standpoint she can go home. Current Visit: Yes Qualifiers: Congestive heart failure type: diastolic
[2017-04-30] MEDS: CINACALCET 30 MG TABLET PO SCH (09:38)
[2017-04-30] MEDS: levETIRAcetam 500 MG TABLET PO SCH ×2 (09:39→20:33)
[2017-04-30] MEDS: amLODIPine 5 MG TABLET PO SCH (09:39)
[2017-04-30] MEDS: clonazePAM 0.5 MG TABLET PO SCH ×2 (09:39→20:33)
[2017-04-30] MEDS: RANOLAZINE 500 MG TABLET PO SCH ×2 (09:39→20:35)
[2017-04-30] MEDS: CARVEDILOL 3.125 MG TABLET PO SCH ×2 (09:39→20:33)
[2017-04-30] MEDS: CALCIUM ACETATE 667 MG CAPSULE PO SCH ×5 (09:39→20:36)
[2017-04-30] MEDS: ASPIRIN EC 81 MG TABLET PO SCH ×2 (09:40→09:44)
[2017-04-30] MEDS: sitaGLIPtin 25 MG TABLET PO SCH (09:40)
[2017-04-30] MEDS: OLANZapine 2.5 MG TABLET PO SCH ×2 (09:40→20:35)
[2017-04-30] MEDS: PANTOPRAZOLE 40 MG TABLET PO SCH ×2 (09:40→20:35)
[2017-04-30] MEDS: CYCLOBENZAPRINE 10 MG TABLET PO SCH ×3 (09:40→20:33)
[2017-04-30] MEDS: LEVOTHYROXINE 100 MCG TABLET PO SCH (09:40)
[2017-04-30] MEDS: BUDESONIDE/FORMOTEROL 160-4.5 INHALER 6 GM INH SCH ×2 (09:41→20:35)
--- NOTE | 2017-04-30 12:43 | Hospitalist Progress Note ---
Assessment and Plan (1) Hx of mechanical aortic valve replacement Status: Chronic Assessment and plan: Anticoagulated with Coumadin. Subtherapeutic. Increase dose to 10 mg today. Repeat INR in a.m. Current Visit: No (2) Chronic anticoagulation Status: Chronic Current Visit: No (3) ESRD on dialysis Problem details: Dialysis Sunday Status: Chronic Current Visit: No (4) Diarrhea Status: Chronic Current Visit: Yes Qualifiers: Diarrhea type: unspecified type Qualified Code(s): R19.7 - Diarrhea, unspecified (5) CKD (chronic kidney disease) Status: Acute Current Visit: No Qualifiers: Chronic kidney disease stage: on chronic dialysis Qualified Code(s): N18.6 - End stage renal disease; Z99.2 - Dependence on renal dialysis (6) History of mitral valve replacement with mechanical valve Status: Chronic Current Visit: Yes (7) Pulmonary hypertension Status: Chronic Current Visit: No Hospitalist: Subjective Interval history: Patient seen and examined. No acute events overnight. Case discussed with nursing staff. Labs reviewed. INR remains subtherapeutic at 1.8. Patient having some diarrhea. Exam - Constitutional Vitals: Period Temp Pulse Resp BP Sys/Vargas Pulse Ox Last 24 Hr 96.2 F-97.8 F 75-86 16-20 121-139/58-65 90-99 Exam: Constitutional System: No distress. No tremulousness. Head: Normocephalic, atraumatic. Ears, Nose and Throat System: No pain or tenderness. No epistaxis or discharge Eyes System: Pupils equal, round, and reactive. Extraocular muscles intact. Neck: Supple, without adenopathy, No jugular venous distention. No thyromegaly, neck mass, or prior surgery apparent. Respiratory System: Chest clear to auscultation. Cardiovascular System: Heart with regular rate and rhythm. GI System: Abdomen soft, nontender. Normo active bowel sounds present. Musculoskeletal System: limbs with no pedal edema. Full distal pulses. Neurological System: No discernable sensory deficit. No aphasia Psychiatric System: Conversation is rational Results - Labs CBC & BMP: 04/30/17 04:35 04/25/17 05:34 Lab Results: I have reviewed the past 24 hour labs
[2017-04-30] MEDS ORDERED: WARFARIN 5 MG TABLET PO ONE (13:59)
--- NOTE | 2017-04-30 16:55 | Nephrology Progress Note ---
Nephrology - PN: Subj Interval history: Patient mentions that she has little nauseated has just received Zofran. She tolerated dialysis on yesterday. Coumadin has been adjusted. No other acute changes. A 14 2017 patient is resting comfortably states she had a better night last night. No nausea. No other acute changes. 8 Exam (PN)-Nephrology - Vital Signs Vital signs: Period Temp Pulse Resp BP Sys/Vargas Pulse Ox Last 24 Hr 96.3 F-97.8 F 75-86 16-20 114-139/58-65 90-99 - General Appearance General appearance: well-developed, well-nourished EENT: ATNC Neck: supple Respiratory: clear Cardiology: no edema, regular rate, regular rhythm Gastrointestinal: normoactive bowel sounds, no tenderness, no guarding Neurologic: alert and oriented x3 Musculoskeletal: no clubbing Psychiatric: mood/affect appropriate - Lab 04/30/17 04:35 04/25/17 05:34 Most recent lab results Calcium 10.8 MG/DL (8.5-10.1) H 04/25/17 05:34 Magnesium 2.1 MG/DL (1.8-2.4) 04/25/17 05:34 Assessment and Plan (1) GI bleed Status: Resolved Current Visit: No (2) Fatigue Status: Chronic Current Visit: No (3) Coronary artery disease Status: Chronic Current Visit: No (4) Subtherapeutic international normalized ratio (INR) Status: Acute Assessment and plan: Coumadin dose being adjusted. Current Visit: No (5) End-stage renal disease on hemodialysis Problem details: Next scheduled routine CHD tomorrow. Status: Chronic Current Visit: Yes (6) History of mitral valve replacement with mechanical valve Status: Chronic Current Visit: Yes
[2017-04-30] MEDS: rOPINIRole 1 MG TABLET PO SCH (20:35)
[2017-04-30] MEDS: TEMAZEPAM 15 MG CAPSULE PO SCH (20:35)
[2017-04-30] MEDS: PRAVASTATIN 20 MG TABLET PO SCH (20:35)
[2017-04-30] MEDS: MONTELUKAST 10 MG TABLET PO SCH (20:35)
[2017-05-01] MEDS ORDERED: guaiFENesin 200 MG/10 ML UDCUP PO PRN (01:04)
[2017-05-01] MEDS: ALBUTEROL/IPRATROPIUM 3 ML NEB RESP TX SCH ×6 (03:20→23:54)
[2017-05-01] MEDS: BENZONATATE 100 MG CAPSULE PO PRN ×2 (04:58→20:16)
[2017-05-01 07:00] LABS: INR 3.5
[2017-05-01 07:06] LABS: PT Patient Result 39.8 SECS
[2017-05-01] MEDS ORDERED: ALBUTEROL/IPRATROPIUM 3 ML NEB RESP TX ONE (08:15)
--- NOTE | 2017-05-01 08:15 | Hospitalist Progress Note ---
Hospitalist: Subjective Interval history: Patient notes some SOB that started last night. She denies any cough. Diarrhea is unchanged. Exam - Constitutional Vitals: Period Temp Pulse Resp BP Sys/Vargas Pulse Ox Last 24 Hr 95.3 F-97.8 F 74-80 18-20 90-130/47-68 94-99 General appearance: mild distress - Head Head exam: Present: normal inspection - Eye Eye exam: Present: EOMI Pupils: Present: NONI - ENT ENT exam: Present: normal exam - Respiratory Respiratory exam: Present: decreased breath sounds (at both bases). Absent: accessory muscle use, rales, rhonchi, wheezes - Cardiovascular Cardiovascular exam: Present: regular rate and rhythm (+valvular click) - GI/Abdominal GI/Abdominal exam: Present: normal bowel sounds. Absent: distended, guarding, tenderness - Extremities Exam Extremities exam: Absent: edema - Neurological Exam Neurological exam: Present: oriented X3 - Skin Skin exam: Present: normal color Results - Labs CBC & BMP: 04/30/17 04:35 04/25/17 05:34 - Impressions 1. COPD: not in acute exacerbation. SOB may be 2nd to COPD. Asked nursing to give neb earlier. She is scheduled for dialysis today. Continue symbicort. 2. CHF: not in acute exacerbation. Will obtain chest x-ray 3. ESRD on HD scheduled today. This may help her breathing. 4. mechanical mitral and aortic valve replacement: INR is therapeutic 5. Diarrhea: unchanged. check for c. diff; if negative fecal leukocytes, start immodium
--- NOTE | 2017-05-01 08:46 | Dialysis Note ---
Dialysis Note - Dialysis Note Seen at the beginning of hemodialysis. She is saying that she is "numb all over " she is arousable and able to answer questions reasonably but seems somewhat sedate. She has been on scheduled narcotics and some of this is oversedation. We are going to proceed with hemodialysis
[2017-05-01] MEDS: clonazePAM 0.5 MG TABLET PO SCH ×2 (09:00→20:16)
[2017-05-01] MEDS: LEVOTHYROXINE 100 MCG TABLET PO SCH (09:00)
[2017-05-01] MEDS ORDERED: CYCLOBENZAPRINE 10 MG TABLET PO PRN (09:03)
[2017-05-01] MEDS ORDERED: TEMAZEPAM 15 MG CAPSULE PO PRN (09:03)
[2017-05-01] MEDS: CALCIUM ACETATE 667 MG CAPSULE PO SCH ×4 (11:46→20:16)
[2017-05-01] MEDS: CYCLOBENZAPRINE 10 MG TABLET PO SCH (13:23)
[2017-05-01] MEDS: RANOLAZINE 500 MG TABLET PO SCH ×2 (13:39→20:16)
[2017-05-01] MEDS: CINACALCET 30 MG TABLET PO SCH (13:39)
[2017-05-01] MEDS: sitaGLIPtin 25 MG TABLET PO SCH (13:40)
[2017-05-01] MEDS: CARVEDILOL 3.125 MG TABLET PO SCH ×2 (13:40→20:16)
[2017-05-01] MEDS: OLANZapine 2.5 MG TABLET PO SCH ×2 (13:40→20:20)
[2017-05-01] MEDS: ASPIRIN EC 81 MG TABLET PO SCH (13:40)
[2017-05-01] MEDS: PANTOPRAZOLE 40 MG TABLET PO SCH ×2 (13:40→20:16)
[2017-05-01] MEDS: amLODIPine 5 MG TABLET PO SCH (13:48)
[2017-05-01] MEDS: levETIRAcetam 500 MG TABLET PO SCH ×2 (13:50→20:16)
[2017-05-01] MEDS: BUDESONIDE/FORMOTEROL 160-4.5 INHALER 6 GM INH SCH ×2 (13:51→20:17)
--- NOTE | 2017-05-01 15:21 | XRay Report ---
Portable chest. Comparison: April 27, 2017. Indication: Shortness of breath. The heart is mildly enlarged. Post median sternotomy. Calcific plaque is present within the aortic knob. The pulmonary vasculature is prominent. The interstitial lung markings are prominent. No pneumothorax. No pleural effusion. Impression: Findings suggesting congestive heart failure. PROCEDURE INTERPRETED AT [facility] DEPARTMENT OF RADIOLOGY Final Report Signed by: Dr. Qiana Pelletier
[2017-05-01] MEDS: WARFARIN 7.5 MG TABLET PO SCH (17:53)
[2017-05-01] MEDS: MONTELUKAST 10 MG TABLET PO SCH (20:16)
[2017-05-01] MEDS: rOPINIRole 1 MG TABLET PO SCH (20:16)
[2017-05-01] MEDS: PRAVASTATIN 20 MG TABLET PO SCH (20:16)
[2017-05-02] MEDS: ALBUTEROL/IPRATROPIUM 3 ML NEB RESP TX SCH ×3 (04:24→11:15)
[2017-05-02 05:46] LABS: INR 2.9
[2017-05-02 05:48] LABS: PT Patient Result 32.7 SECS; Partial Thromboplastin Time 43.2 SECS (0-40)
[2017-05-02] MEDS: sitaGLIPtin 25 MG TABLET PO SCH (09:27)
[2017-05-02] MEDS: CINACALCET 30 MG TABLET PO SCH (09:28)
[2017-05-02] MEDS: LEVOTHYROXINE 100 MCG TABLET PO SCH (09:28)
[2017-05-02] MEDS: levETIRAcetam 500 MG TABLET PO SCH (09:28)
[2017-05-02] MEDS: RANOLAZINE 500 MG TABLET PO SCH (09:28)
[2017-05-02] MEDS: CARVEDILOL 3.125 MG TABLET PO SCH (09:28)
[2017-05-02] MEDS: amLODIPine 5 MG TABLET PO SCH (09:28)
[2017-05-02] MEDS: ASPIRIN EC 81 MG TABLET PO SCH (09:28)
[2017-05-02] MEDS: PANTOPRAZOLE 40 MG TABLET PO SCH (09:29)
[2017-05-02] MEDS: OLANZapine 2.5 MG TABLET PO SCH (09:29)
[2017-05-02] MEDS: BUDESONIDE/FORMOTEROL 160-4.5 INHALER 6 GM INH SCH (09:29)
[2017-05-02] MEDS: CALCIUM ACETATE 667 MG CAPSULE PO SCH ×2 (09:30→12:00)
[2017-05-02] MEDS: clonazePAM 0.5 MG TABLET PO SCH (09:30)
[2017-05-02] MEDS: BENZONATATE 100 MG CAPSULE PO PRN (09:34)
--- NOTE | 2017-05-02 11:48 | Discharge Summary ---
Hospital Course - Hospital Course Hospital Course: Patient was hospitalized with pneumonia. She was treated with intravenous antibiotics with resolution of her pneumonia. She experienced excessive prolongation of her INR due to her warfarin, which required readjustment. She was seen in consultation by nephrology for management of her hemodialysis. The time of discharge she was comfortable with no complaints. Her INR was 2.9 at the time of discharge. Diagnosis - Discharge Diagnosis (1) Hx of mechanical aortic valve replacement Status: Chronic (2) Chronic anticoagulation Status: Chronic (3) End-stage renal disease on hemodialysis Status: Chronic (4) Pneumonia Status: Acute Discharge Plan - Discharge Data Condition at Discharge: Stable Discharge Diet: advance to your usual diet Activity: resume usual activities as tolerated Hygiene: no restrictions - Discharge Medications New Warfarin [Coumadin] 7.5 mg PO DAILY@1800 tablet Continue OLANZapine [Olanzapine] 2.5 mg PO BID Ranolazine [Ranexa] 1,000 mg PO BID Montelukast Tab [Singulair Tab] 10 mg PO BEDTIME Temazepam [Restoril] 15 mg PO BEDTIME Pantoprazole Tab [Protonix Tab] 40 mg PO BID HYDROcodone/ACETAMIN 10-325 [[place] 10-325] 10 mg PO TID Cyclobenzaprine [Flexeril] 10 mg PO TID amLODIPine [Norvasc] 5 mg PO DAILY tablet Carvedilol [Coreg] 3.125 mg PO BID #0 tablet Levothyroxine Tab [Synthroid Tab] 100 mcg PO DAILY Aspirin EC Tab 81 mg PO DAILY Benzonatate [Tessalon] 100 mg PO TID PRN PRN Reason: Cough Promethazine HCl 50 mg PO Q4-6H PRN PRN Reason: Nausea rOPINIRole [Requip] 1 mg PO BEDTIME clonazePAM TAB [KlonoPIN] 0.5 mg PO BID Cholestyramine/Aspartame [Cholestyramine Light Packet] 4 gm PO QOTHER DAY PRN PRN Reason: cholesterol Calcium Acetate [Phoslo] 1,334 mg PO QID levETIRAcetam [Levetiracetam] 500 mg PO BID Warfarin [Coumadin] 5 mg PO BEDTIME Budesonide/Formoterol 160-4.5 [Symbicort 160-4.5] 2 puffs INH BID Pravastatin [Pravachol] 20 mg PO BEDTIME Linagliptin [Tradjenta] 5 mg PO DAILY Cinacalcet [Sensipar] 60 mg PO DAILY - Follow Up or Referral - Forms/Instructions Exam - Constitutional Vitals: Period Temp Pulse Resp BP Sys/Vargas Pulse Ox Last 24 Hr 96.8 F-99.4 F 60-93 17-20 102-142/55-70 95-100 Discharge Results Procedures and tests throughout hospitalization: Pending Orders 04/27/17 Occult Blood, Stool Routine 05/01/17 20:30 Stool for WBCs Routine Labs on day of discharge: Labs from last 24 hours 05/02/17 05/01/17 05/01/17 04:25 18:57 15:31 INR 2.9 PT Patient/Control Mix 32.7 Circ Anticoag PTT 43.2 H D POC Glucose 124 H 142 H 05/01/17 12:40 INR PT Patient/Control Mix Circ Anticoag PTT POC Glucose 92 DS: Provider Date of admission: 04/24/17 10:09 Primary care physician: . No PCP Attending physician on admission: Leti Burden MD Consults: 04/24/17 11:13 Consult to Physician [CONS] Routine Comment: Consulting Provider: Jabier López When should Consulting Provider be notified: Now Person Notified: Lamar Date Notified: 04/24/17 Time Notified: 14:49 Consult Notification Comment: Patient has dialysis T,T,S last dialysis on Sunday04/24/17 11:16 Consult to Case Mgmt/Social Srvs [CONS] Routine Reason for Case Mgmt/Social Srvs: Discharge Planning 04/24/17 14:36 Consult to Pastoral Services [CONS] Routine Comment: Pastoral Screen: Request Analytical Technician Visit Pastoral Screen Source of Request: Patient 04/24/17 14:53 Consult to Pharmacy [CONS] Routine Reason for Pharmacy Consult: Adjust Meds Renal Funct 04/24/17 15:19 Consult to Physician [CONS] Routine Comment: sob Consulting Provider: Ankur Hood Consult to Specialist Group: Pulmonology When should Consulting Provider be notified: In am Person Notified: Mnai Date Notified: 04/25/17 Time Notified: 08:48 Consult Notification Comment: 04/24/17 16:16 Consult to Physician [CONS] Routine Comment: Known to you, had appt 04/25/17 anemic, bloody stool Consulting Provider: Darion Luke When should Consulting Provider be notified: In am Person Notified: Mariella Reyna Date Notified: 04/25/17 Time Notified: 08:31 Discharging clinician: David Pabon
[2017-05-02 12:11] VITALS: BP 125/60
== END 2017-05-02 15:40 | disposition home or self-care (01) | DRG 190 ==
LOC: N.ED 08:31 → SUATTDRO 10:09 → N.EDINP 10:09 → N.5E 13:55
PROVIDERS: ADMIT Internal Medicine

== ENCOUNTER 2017-05-08 06:26 | Inpatient (IN) ==
[2017-05-08] MEDS ORDERED: PANTOPRAZOLE 40 MG VIAL IV STA (06:38)
[2017-05-08] MEDS ORDERED: ONDANSETRON 4 MG/2 ML VIAL IV STA (06:38)
--- NOTE | 2017-05-08 06:42 | Emergency Department Note ---
Arrival - Arrival Chief Complaint: Shortness of Breath Stated Complaint: SOB, Nausea ED Nursing Triage Note: Pt brought in by EMS with c/o SOB, N,V and dark tarry stools that started yesterday. Pt is taking coumadin and uses home o2 2.5Liters NC. 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 Mode of Arrival: Stretcher Limitations: No Limitations Source: Patient, Old Records Reviewed, RN Notes Reviewed - History of Present Illness HPI Narrative: Patient is a 61-year-old white female routinely followed by Dr. Latham in [place] and Dr. Mills. The patient has had dark black bowel movements since 3 AM May 07. Patient has had nausea but no vomiting. She has had minimal amounts of abdominal pain. Patient has some shortness of breath but she describes this is minimal. Patient is Sunday hemodialysis. Onset (ago): day(s) (1) Consistency: constant Severity: moderate Quality: other Allergies/Adverse Reactions: Allergies Allergy/AdvReac Type Severity Reaction Status Date / Time Iodinated Contrast Media - Allergy RASH Verified 01/22/17 01:00 Oral and [Iodinated Contrast Media - IV Dye] Penicillins Allergy ANAPHYLAXIS Verified 01/22/17 01:00 aspirin AdvReac Nausea Verified 01/22/17 01:00 cephalexin [From Keflex] AdvReac Vomiting Verified 01/22/17 01:00 Sulfa (Sulfonamide AdvReac Vomiting Verified 01/22/17 01:00 Antibiotics) Home Medications: Home Medications Medication Instructions Recorded Confirmed Type Budesonide/Formoterol 160-4.5 2 puffs INH BID 03/03/17 04/24/17 History [Symbicort 160-4.5] Cyclobenzaprine [Flexeril] 10 mg PO TID 03/03/17 04/24/17 History HYDROcodone/ACETAMIN 10-325 [[place] 10 mg PO TID 03/03/17 04/24/17 History 10-325] Montelukast Tab [Singulair Tab] 10 mg PO BEDTIME 03/03/17 04/24/17 History OLANZapine [Olanzapine] 2.5 mg PO BID 03/03/17 04/24/17 History Pantoprazole Tab [Protonix Tab] 40 mg PO BID 03/03/17 04/24/17 History Pravastatin [Pravachol] 20 mg PO BEDTIME 03/03/17 04/24/17 History Ranolazine [Ranexa] 1,000 mg PO BID 03/03/17 04/24/17 History Temazepam [Restoril] 15 mg PO BEDTIME 03/03/17 04/24/17 History Warfarin [Coumadin] 5 mg PO BEDTIME 03/03/17 04/24/17 History levETIRAcetam [Levetiracetam] 500 mg PO BID 03/03/17 04/24/17 History amLODIPine [Norvasc] 5 mg PO DAILY tablet 03/10/17 04/24/17 Rx Carvedilol [Coreg] 3.125 mg PO BID #0 tablet 04/04/17 04/24/17 Rx Aspirin EC Tab 81 mg PO DAILY 04/24/17 04/24/17 History Benzonatate [Tessalon] 100 mg PO TID PRN 04/24/17 04/24/17 History Calcium Acetate [Phoslo] 1,334 mg PO QID 04/24/17 04/24/17 History Cholestyramine/Aspartame 4 gm PO QOTHER DAY PRN 04/24/17 04/24/17 History [Cholestyramine Light Packet] Cinacalcet [Sensipar] 60 mg PO DAILY 04/24/17 04/24/17 History Levothyroxine Tab [Synthroid Tab] 100 mcg PO DAILY 04/24/17 04/24/17 History Linagliptin [Tradjenta] 5 mg PO DAILY 04/24/17 04/24/17 History Promethazine HCl 50 mg PO Q4-6H PRN 04/24/17 04/24/17 History clonazePAM TAB [KlonoPIN] 0.5 mg PO BID 04/24/17 04/24/17 History rOPINIRole [Requip] 1 mg PO BEDTIME 04/24/17 04/24/17 History Warfarin [Coumadin] 7.5 mg PO DAILY@1800 tablet 05/02/17 Rx Review of System - Review of System 12 point system: reviewed and no additional remarkable complaints except as stated - Review of System Constitutional: Absent: chills, fever Respiratory: Absent: cough, wheezing Cardiovascular: Absent: chest pain Gastrointestinal: Present: abdominal pain, nausea, melena. Absent: vomiting, hematemesis Skin: Present: other (Multiple ecchymoses) Medical,Surgical,& Family Hx - Medical History Cardio: History of: Cardiac Dysrhythmia, CAD (CABG x 3 (November 2016)), Hypertension, Valvular Heart Disease (mechanical AVR & MVR), Cardiovascular Problems (impression recent aortic issue.) Psychological: History of: Anxiety Disorders, Depression Neurology: History of: Peripheral Neuropathy (FEET/TOES), Vertigo No history of: Dementia, Seizures Endocrine: History of: Diabetes Mellitus (IDDM) Rheumatology: History of;: Fibromyalgia Respiratory: History of: Asthma, COPD Renal: History of: Dialysis, Renal Failure (ESRD) Gastrointestinal: History of: GERD, Gastrointestinal Bleed Hematology: History of: Anemia, Bleeding Problems (high inr), Clotting Problems (pt states she had a clot "three or four years ago") No history of: Blood Transfusion Reaction Other: History of: Miscellaneous Medical Problems (Sinus surgery) No history of: Anesthesia Reactions - Surgical History Cardiac Surgeries: Sugical HX of: Cardiac Catheterization (NO STENTS PLACE), Cardiac Surgery (mechanical MVR and AVR) Thoracic Surgeries: Patient denies;: Organ Transplant HEENT Surgeries: Surgical HX of: Tonsilectomy & Adenoidectomy Abdominal Surgeries: Surgical HX of: Abdominal Surgery (COLON REMOVED), Cholecystectomy Reproductive Surgeries: Surgical HX of;: Gynecologic Surgery, Hysterectomy - Family History Family History: Reports;: Family Cancer (mother ovarian, sister breast), Family Diabetes (mother), Family Heart Disease (mother -[place]), Family Hypertension ( mother), Family Stroke (mother and brother) - Social History Smoking Status: Former smoker Frequency of Alcohol Use: None Type of Drug Use: None Functional capacity: independent ambulation Exam Vital Signs: Vital Signs Temperature 96.6 F L 05/08/17 06:33 Pulse Rate 88 05/08/17 08:05 Respiratory Rate 23 05/08/17 08:05 Blood Pressure 149/70 05/08/17 08:05 O2 Sat by Pulse Oximetry 95 05/08/17 08:05 GENERAL: This is a chronically and acutely ill-appearing white female in no apparent distress. VITAL SIGNS: Reviewed HEENT: Head is atraumatic and normocephalic. Pupils are equal round react to light. Extraocular movements are intact. Pale conjunctiva. Oropharynx is benign with moist mucous membranes. NECK: Neck is soft and supple without tenderness. There are no masses. There is no lymphadenopathy. LUNGS: Lungs are clear to auscultation. Chest rises symmetrically. There is no chest wall tenderness. CV: Heart is regular rate and rhythm without murmurs rubs or gallops. ABDOMEN: Abdomen is soft, nontender to palpation. There are no abdominal abnormal masses palpated. There is no organomegaly. Bowel sounds are present and active. SKIN: Skin is warm and dry. No rash. Pallor EXTREMITIES: Patient has full range of motion without tenderness. There is no pedal edema. NEUROLOGIC: Awake alert and oriented 4. Cranial nerves II through XII are grossly intact. Motor is 3-4 over 5 in all extremities bilaterally. Course Course Narrative: D50, insulin, bicarb, and blood transfusion ordered in the emergency department. - Consultations Consultation #1: Discussed with Dr. Alfaro. Patient will go IR central venous catheter placement due to lack of IV access and inability to obtain IV access. Patient has had multiple IJ dialysis catheters and right femoral central venous catheter placed at last hospitalization 10-12 days ago. Time: 07:12 Results - Labs CBC & BMP: 05/08/17 08:18 05/08/17 08:18 Lab Results: I have reviewed the patients labs - EKG EKG results: interpreted by ERMD - Impressions EKG: Sinus rhythm with first-degree AV block, rate 82, nonspecific intraventricular conduction delay, nonspecific ST-T wave changes. - Diagnostic Findings Procedure: Chest x-ray: image reviewed by me (Increased pulmonary markings bilaterally) Disposition Clinical Impression: Acute upper GI bleeding, End-stage renal disease on hemodialysis, Anemia, Hyperkalemia Case discussed with: patient Disposition: Still a Patient Condition: Guarded Time of Disposition: 09:13
--- NOTE | 2017-05-08 07:38 | XRay Report ---
Portable chest. Indication: Shortness of breath. Comparison: May 01, 2017. The heart is enlarged. Post median sternotomy. The pulmonary vasculature is prominent. Atelectasis has developed at the left lung base. Increasing infiltrate noted within the right mid and lower lung field. Moderate right pleural effusion. Impression: Worsening findings of congestive heart failure. More focal infiltrate at the right lung base may be related to superimposed pneumonia. Development of mild atelectasis at the left base. PROCEDURE INTERPRETED AT [facility] DEPARTMENT OF RADIOLOGY Final Report Signed by: Dr. Qiana Pelletier
[2017-05-08] MEDS ORDERED: ONDANSETRON ODT 4 MG TABLET PO ONE (07:46)
[2017-05-08] MEDS ORDERED: ONDANSETRON ODT 4 MG TABLET PO STA (07:47)
[2017-05-08 08:30] LABS: Basophils % 0.1 % (0.0-0.8); Eosinophils # 0.1 10*3/uL (0.0-0.87); Eosinophils % 0.6 % (0.00-10.9); Immature Granulocytes Absolute 0.13 #; Lymphocytes # 2.2 10*3/uL (1.4-4.0); Lymphocytes % 16.3 % (21.3-54.2); Mean Corpuscular HGB Conc 33.3 GM/DL (32-36); Mean Corpuscular Hemoglobin 32 PG (27-34); Mean Corpuscular Volume 96.8 FL (87-102); Mean Platelet Volume 10.1 FL (9.6-12.0); Monocytes # 0.6 10*3/uL (0.11-0.8); Monocytes % 4.8 % (1.7-12.7); Neutrophils # 10.4 10*3/uL (1.4-7.4); Neutrophils % 77.2 % (38.7-73.9); Platelet Count 205 T/CUMM (130-400); Red Blood Count 1.55 MC/CUMM (3.8-5.5); Red Cell Distribution Width 18.5 % (9.3-17.3); White Blood Count 13.5 T/CUMM (4-12)
[2017-05-08 08:40] LABS: INR 3.4; Partial Thromboplastin Time 35.2 SECS (0-40)
[2017-05-08] MEDS ORDERED: PANTOPRAZOLE 40 MG VIAL IV ONE (08:40)
[2017-05-08 08:47] LABS: PT Patient Result 38.8 SECS
[2017-05-08 09:01] LABS: Albumin 3.6 G/DL (3.4-5.0); Bilirubin,Total 1.6 MG/DL (0.2-1.0); Calcium 9.4 MG/DL (8.5-10.1); Osmolality,Calculated 293.5 MOS/KG (273-304); Total Protein 6.7 G/DL (6.4-8.3)
[2017-05-08 09:07] LABS: Potassium 6.8 MMOL/L (3.5-5.1)
[2017-05-08] MEDS ORDERED: DEXTROSE 50% 25 GM/50 ML VIAL IV STA (09:10)
[2017-05-08] MEDS ORDERED: INSULIN REGULAR 100 UNIT/ML IV STA (09:10)
[2017-05-08] MEDS ORDERED: SODIUM BICARBONATE 50 MEQ/50 ML VIAL IV STA (09:11)
--- NOTE | 2017-05-08 09:11 | EKG Report ---
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
[2017-05-08] MEDS ORDERED: DEXTROSE 50% 25 GM/50 ML SYRINGE IV ONE ×2 (09:17→09:20)
[2017-05-08] MEDS ORDERED: INSULIN REGULAR 100 UNIT/ML ONE (09:22)
--- NOTE | 2017-05-08 09:48 | Post Interventional Procedure ---
Pre-op diagnosis: ESRD with GI bleeding, nausea/vomiting Post-op diagnosis: same Procedure: central line placement Contrast: none Flouroscopy: 1 min Radiologist: Kwadwo Alfaro Anesthesia: local Medications: Lidocaine Specimens: none sent Estimated blood loss: none Complications: none Condition: stable Description/Findings: right IJ 7 Fr triple lumen central venous catheter placement done and ready for use Assessment and Plan - Time spent with patient Time spent with patient: Less than 30 minutes
[2017-05-08] MEDS: SODIUM CHLORIDE 0.9% 250 ML IV PRN ×2 (09:49→11:36)
--- NOTE | 2017-05-08 09:53 | Interventional Radiology Rpt ---
IR cvc insert nt >5, IR fluoro guide cv cath, US guide vascular access Central Line placement using fluoroscopic and ultrasound guidance Ultrasound of the right neck Clinical Information: 61-year-old female with end-stage renal disease on dialysis and nausea vomiting and signs/symptoms of active GI bleeding. Patient needs central venous access for resuscitation efforts. Physician[s]: Dr. Alfaro Procedure: The patient was advised of the benefits, risks, and alternatives of the procedure and informed consent was obtained. A time out was performed with verification of the patient's name, MRN, site of procedure, and type of procedure to be performed. The patient was positioned in the supine position on the angiographic table. The site was prepped and draped in the usual sterile fashion. Local anesthesia only was used for the procedure. A automobile brakes bonder radiograph reveals no relevant abnormality. The neck and anterior chest wall were anesthetized with lidocaine. The right internal jugular vein was accessed using a microintroducer needle via an anterior approach with ultrasound guidance. Ultrasound image capture of vascular access was obtained for the patient's permanent record. A 0.018" cope wire was advanced into the superior vena cava, the needle was removed and a microintroducer sheath was placed. An Amplatz wire was then passed into the inferior vena cava. An incision was made at the puncture site using a scalpel. The tract was serially dilated over the wire. A 7 [place] triple lumen 20 cm Arrow central venous catheter was placed with its tip at the cavoatrial junction under fluoroscopic guidance. The ports aspirate and flush freely. The catheter was sutured in place using 3-0 silk and covered with a sterile dressing. The patient tolerated the procedure well and was returned to the PRU in stable condition. EBL: < 5 mL. Complications: None. Total Fluoroscopy Time: 1 minute. Conclusion: Successful placement of a triple lumen central venous catheter via the right internal jugular vein. The catheter is ready for immediate use. PROCEDURE INTERPRETED AT [facility] DEPARTMENT OF RADIOLOGY Final Report Signed by: Kwadwo Alfaro
--- NOTE | 2017-05-08 10:58 | Hospitalist History & Physical ---
Assessment and Plan - Time spent with patient Time spent with patient: Greater than 30 minutes (1) Diabetes Status: Acute Assessment and plan: 61-year-old white female with multiple medical problems admitted with weakness and dizziness due to acute blood loss anemia from lower GI bleeding. Patient has mechanical AVR and requires chronic anticoagulation for survival. She has had multiple GI bleeds and multiple problems in the recent past. Will admit the patient to the unit and blood is already been ordered for transfusion. Will consult Dr. Mills her marketing forecaster since today is her dialysis day. She also has hyperkalemia of 6.8. Patient's INR is supratherapeutic at 3.4. Will hold her Coumadin for now. We will also consult Dr. Luke for GI bleeding. Dr. Madsen we will see and examined patient and further recommendations to follow. Current Visit: Yes (2) GI bleed Status: Resolved Current Visit: No (3) Symptomatic anemia Status: Resolved Current Visit: No (4) Acute blood loss anemia Status: Resolved Current Visit: No (5) Hx of mechanical aortic valve replacement Status: Chronic Current Visit: No (6) Weakness Status: Chronic Current Visit: No (7) Chronic anticoagulation Status: Chronic Current Visit: No (8) End-stage renal disease on hemodialysis Problem details: Next scheduled routine CHD tomorrow. Status: Chronic Current Visit: No (9) Pneumonia Status: Acute Current Visit: No (10) Hyperkalemia Status: Acute Current Visit: Yes History of Present Illness Chief complaint: Weakness and dizziness History of present illness: Ms. Betancourt is a 61 year old white female with history of end-stage renal disease on HD, CAD, hypertension, mechanical AVR and MVR, depression, vertigo, peripheral neuropathy, diabetes, fibromyalgia, asthma/COPD, and history of multiple GI bleeds presenting to the ED with a several day history of worsening weakness and dizziness and 1 day history of black tarry stools. Patient had just been discharged on 05/02/2017 after being hospitalized for pneumonia and excessive prolongation of her INR requiring readjustment. Patient is afebrile and her vital signs are stable. Her H&H is 5/15 and her potassium is 6.8. She normally dialyzes on Sunday'. Patient has already had a central line placed by IR due to difficult sticks. Chest x-ray shows worsening congestive heart failure with a focal infiltrate at the right lung base. She does complain of dry cough, shortness of breath, and congestion and headaches. She denies dysphasia, chest pain, abdominal pain, constipation or diarrhea, or lower extremity edema. Patient's GI doctor is Dr. Luke and her marketing forecaster is Dr. Mills. After discussion with Dr. Delong the ED physician and Dr. Madsen the admitting hospitalist, it was agreed patient would be admitted for further evaluation and treatment. Patient's medicines have been reconciled and she is a full code. Home Medications Medication Instructions Recorded Confirmed Type Budesonide/Formoterol 160-4.5 2 puffs INH BID 03/03/17 04/24/17 History [Symbicort 160-4.5] Cyclobenzaprine [Flexeril] 10 mg PO TID 03/03/17 04/24/17 History HYDROcodone/ACETAMIN 10-325 [[place] 10 mg PO TID 03/03/17 04/24/17 History 10-325] Montelukast Tab [Singulair Tab] 10 mg PO BEDTIME 03/03/17 04/24/17 History OLANZapine [Olanzapine] 2.5 mg PO BID 03/03/17 04/24/17 History Pantoprazole Tab [Protonix Tab] 40 mg PO BID 03/03/17 04/24/17 History Pravastatin [Pravachol] 20 mg PO BEDTIME 03/03/17 04/24/17 History Ranolazine [Ranexa] 1,000 mg PO BID 03/03/17 04/24/17 History Temazepam [Restoril] 15 mg PO BEDTIME 03/03/17 04/24/17 History Warfarin [Coumadin] 5 mg PO BEDTIME 03/03/17 04/24/17 History levETIRAcetam [Levetiracetam] 500 mg PO BID 03/03/17 04/24/17 History amLODIPine [Norvasc] 5 mg PO DAILY tablet 03/10/17 04/24/17 Rx Carvedilol [Coreg] 3.125 mg PO BID #0 tablet 04/04/17 04/24/17 Rx Aspirin EC Tab 81 mg PO DAILY 04/24/17 04/24/17 History Benzonatate [Tessalon] 100 mg PO TID PRN 04/24/17 04/24/17 History Calcium Acetate [Phoslo] 1,334 mg PO QID 04/24/17 04/24/17 History Cholestyramine/Aspartame 4 gm PO QOTHER DAY PRN 04/24/17 04/24/17 History [Cholestyramine Light Packet] Cinacalcet [Sensipar] 60 mg PO DAILY 04/24/17 04/24/17 History Levothyroxine Tab [Synthroid Tab] 100 mcg PO DAILY 04/24/17 04/24/17 History Linagliptin [Tradjenta] 5 mg PO DAILY 04/24/17 04/24/17 History Promethazine HCl 50 mg PO Q4-6H PRN 04/24/17 04/24/17 History clonazePAM TAB [KlonoPIN] 0.5 mg PO BID 04/24/17 04/24/17 History rOPINIRole [Requip] 1 mg PO BEDTIME 04/24/17 04/24/17 History Warfarin [Coumadin] 7.5 mg PO DAILY@1800 tablet 05/02/17 Rx Allergies Allergy/AdvReac Type Severity Reaction Status Date / Time Iodinated Contrast Media - Allergy RASH Verified 01/22/17 01:00 Oral and [Iodinated Contrast Media - IV Dye] Penicillins Allergy ANAPHYLAXIS Verified 01/22/17 01:00 aspirin AdvReac Nausea Verified 01/22/17 01:00 cephalexin [From Keflex] AdvReac Vomiting Verified 01/22/17 01:00 Sulfa (Sulfonamide AdvReac Vomiting Verified 01/22/17 01:00 Antibiotics) Medical,Surgical,& Family Hx - Medical History Cardio: History of: Cardiac Dysrhythmia, CAD (CABG x 3 (November 2016)), Hypertension, Valvular Heart Disease (mechanical AVR & MVR), Cardiovascular Problems (impression recent aortic issue.) Psychological: History of: Anxiety Disorders, Depression Neurology: History of: Peripheral Neuropathy (FEET/TOES), Vertigo No history of: Dementia, Seizures Endocrine: History of: Diabetes Mellitus (IDDM), Dyslipidemia Rheumatology: History of;: Fibromyalgia Respiratory: History of: Asthma, COPD Renal: History of: Dialysis, Renal Failure (ESRD) Gastrointestinal: History of: GERD, Gastrointestinal Bleed, Hepatitis (HEP B) Musculoskeletal: History of: Back/Neck Problems Hematology: History of: Anemia, Bleeding Problems (high inr), Clotting Problems (pt states she had a clot "three or four years ago") No history of: Blood Transfusion Reaction Other: History of: Miscellaneous Medical Problems (Sinus surgery) No history of: Anesthesia Reactions - Surgical History Cardiac Surgeries: Sugical HX of: Cardiac Catheterization (NO STENTS PLACE), Cardiac Surgery (mechanical MVR and AVR) Thoracic Surgeries: Patient denies;: Organ Transplant HEENT Surgeries: Surgical HX of: Tonsilectomy & Adenoidectomy Abdominal Surgeries: Surgical HX of: Abdominal Surgery (COLON REMOVED), Cholecystectomy Reproductive Surgeries: Surgical HX of;: Gynecologic Surgery, Hysterectomy - Family History Family History: Reports;: Family Cancer (mother ovarian, sister breast), Family Diabetes (mother), Family Heart Disease (mother -[place]), Family Hypertension ( mother), Family Stroke (mother and brother) - Social History Smoking Status: Former smoker Frequency of Alcohol Use: None Type of Drug Use: None Marital Status: Single Lives With:: Alone Functional capacity: uses cane/walker Review of systems: A complete 10 system review of systems was obtained and pertinent positives and negatives per HPI Exam - Constitutional Vitals: Period Temp Pulse Resp BP Sys/Vargas Pulse Ox Last 24 Hr 96.6 F-96.6 F 83-88 16-23 135-151/70-73 95-100 Exam: Constitutional System: Mild distress. No tremulousness. Head: Normocephalic, atraumatic. Ears, Nose and Throat System: No evidence of Otitis or Mastoiditis. No epistaxis or discharge Eyes System: Pupils equal, round, and reactive. Extraocular muscles intact. Neck: Supple, without adenopathy, No jugular venous distention. No thyromegaly, neck mass, or prior surgery apparent. Respiratory System: Chest clear to auscultation. Cardiovascular System: Heart with regular rate and rhythm. Systolic click. GI System: Abdomen soft, nontender. Normo active bowel sounds present. Musculoskeletal System: limbs with no pedal edema. Full distal pulses. Neurological System: No discernable sensory deficit. No aphasia Psychiatric System: Conversation is rational Results - Labs CBC & BMP: 05/08/17 08:18 05/08/17 08:18 Lab Results: I have reviewed the past 24 hour labs - EKG EKG results: sinus rhythm - Impressions Sinus rhythm with prolonged WI interval. Moderate intraventricular conduction delay. Moderate ST depression - Diagnostic Findings Procedure: Chest x-ray: report reviewed by me (Worsening findings of congestive heart failure. More focal infiltrate at the right lung base related to superimposed pneumonia. Development of mild atelectasis at the left base)
[2017-05-08] MEDS ORDERED: CHOLESTYRAMINE/ASPARTAME 4 GM PACK PO PRN (11:30)
[2017-05-08] MEDS ORDERED: PHYTONADIONE 10 MG/1 ML AMP SUBCUT ONE (11:30)
--- NOTE | 2017-05-08 12:03 | Gastrointestinal Consult Note ---
Assessment and Plan (1) GI bleed Status: Resolved Assessment and plan: 05/08-Several day history of melena with c/o nausea and findings of HH of 5/15 with prior history of anemia and multiple GI bleeds and known AVMs in the past with recent endoscopy in February with normal flex sig and EGD. Being transfused at this time. Continue to monitor serial HH. Plan and addendum to follow by DR Luke. Current Visit: No (2) Symptomatic anemia Status: Resolved Current Visit: No History of Present Illness Chief complaint: Anemia, melena History of present illness: Ms. Betancourt is a 61 year old female who was admitted to the hospital today with onset of weakness and dizziness as well as melena 1 day. Patient has a prior history of end-stage renal disease on dialysis, CAD, hypertension, mechanical AVR and MVR, diabetes, COPD, and multiple GI bleeds. Patient states that she was in her usual state of health until a couple of days ago when she began noting that she was increasingly short of breath with weakness and dizziness. She also states that she began having melena at that time. Pt was noted to be discharged from our facility on 05/02 after inpatient stay for pneumonia and anemia. 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 She was admitted today with INR of 3.4 and found to have HH of 5/15. SHe also is noted to have hyperkalemia at 6.8. She states that she has had some nausea but no vomiting and denies any abdominal pain. She denies any hematochezia. Denies any fever or chills. Her last endoscopy was in February with flex sigmoidoscopy as well as EGD with no acute findings at that time. Pt has received a total of 13 units of PRBC since January of this year and is being transfused at this time. She is also receiving Vitamin K due to her prolonged INR. She denies any epigastric pain, dyspepsia, GERD, dysphagia or other GI symptoms. Home Medications Medication Instructions Recorded Confirmed Type Budesonide/Formoterol 160-4.5 2 puffs INH BID 03/03/17 05/08/17 History [Symbicort 160-4.5] Cyclobenzaprine [Flexeril] 10 mg PO TID 03/03/17 05/08/17 History HYDROcodone/ACETAMIN 10-325 [[place] 10 mg PO TID 03/03/17 05/08/17 History 10-325] Montelukast Tab [Singulair Tab] 10 mg PO BEDTIME 03/03/17 05/08/17 History OLANZapine [Olanzapine] 2.5 mg PO BID 03/03/17 05/08/17 History Pantoprazole Tab [Protonix Tab] 40 mg PO BID 03/03/17 05/08/17 History Pravastatin [Pravachol] 20 mg PO BEDTIME 03/03/17 05/08/17 History Ranolazine [Ranexa] 1,000 mg PO BID 03/03/17 05/08/17 History Temazepam [Restoril] 15 mg PO BEDTIME 03/03/17 05/08/17 History levETIRAcetam [Levetiracetam] 500 mg PO BID 03/03/17 05/08/17 History amLODIPine [Norvasc] 5 mg PO DAILY tablet 03/10/17 05/08/17 Rx Carvedilol [Coreg] 3.125 mg PO BID #0 tablet 04/04/17 05/08/17 Rx Aspirin EC Tab 81 mg PO DAILY 04/24/17 05/08/17 History Benzonatate [Tessalon] 100 mg PO TID PRN 04/24/17 05/08/17 History Calcium Acetate [Phoslo] 1,334 mg PO QID 04/24/17 05/08/17 History Cholestyramine/Aspartame 4 gm PO QOTHER DAY PRN 04/24/17 05/08/17 History [Cholestyramine Light Packet] Cinacalcet [Sensipar] 60 mg PO DAILY 04/24/17 05/08/17 History Levothyroxine Tab [Synthroid Tab] 100 mcg PO DAILY 04/24/17 05/08/17 History Linagliptin [Tradjenta] 5 mg PO DAILY 04/24/17 05/08/17 History Promethazine HCl 50 mg PO Q4-6H PRN 04/24/17 05/08/17 History rOPINIRole [Requip] 1 mg PO BEDTIME 04/24/17 05/08/17 History Warfarin [Coumadin] 7.5 mg PO DAILY@1800 tablet 05/02/17 05/08/17 Rx clonazePAM [Clonazepam] 1 mg PO TID 05/08/17 05/08/17 History Allergies Allergy/AdvReac Type Severity Reaction Status Date / Time Iodinated Contrast Media - Allergy RASH Verified 01/22/17 01:00 Oral and [Iodinated Contrast Media - IV Dye] Penicillins Allergy ANAPHYLAXIS Verified 01/22/17 01:00 aspirin AdvReac Nausea Verified 01/22/17 01:00 cephalexin [From Keflex] AdvReac Vomiting Verified 01/22/17 01:00 Sulfa (Sulfonamide AdvReac Vomiting Verified 01/22/17 01:00 Antibiotics) Medical,Surgical,& Family Hx - Medical History Cardio: History of: Cardiac Dysrhythmia, CAD (CABG x 3 (November 2016)), Hypertension, Valvular Heart Disease (mechanical AVR & MVR), Cardiovascular Problems (impression recent aortic issue.) Psychological: History of: Anxiety Disorders, Depression Neurology: History of: Peripheral Neuropathy (FEET/TOES), Vertigo No history of: Dementia, Seizures Endocrine: History of: Diabetes Mellitus (IDDM), Dyslipidemia Rheumatology: History of;: Fibromyalgia Respiratory: History of: Asthma, COPD Renal: History of: Dialysis, Renal Failure (ESRD) Gastrointestinal: History of: GERD, Gastrointestinal Bleed, Hepatitis (HEP B) Musculoskeletal: History of: Back/Neck Problems Hematology: History of: Anemia, Bleeding Problems (high inr), Clotting Problems (pt states she had a clot "three or four years ago") No history of: Blood Transfusion Reaction Other: History of: Miscellaneous Medical Problems (Sinus surgery) No history of: Anesthesia Reactions - Surgical History Cardiac Surgeries: Sugical HX of: Cardiac Catheterization (NO STENTS PLACE), Cardiac Surgery (mechanical MVR and AVR) Thoracic Surgeries: Patient denies;: Organ Transplant HEENT Surgeries: Surgical HX of: Tonsilectomy & Adenoidectomy Abdominal Surgeries: Surgical HX of: Abdominal Surgery (COLON REMOVED), Cholecystectomy Reproductive Surgeries: Surgical HX of;: Gynecologic Surgery, Hysterectomy - Family History Family History: Reports;: Family Cancer (mother ovarian, sister breast), Family Diabetes (mother), Family Heart Disease (mother -[place]), Family Hypertension ( mother), Family Stroke (mother and brother) - Social History Smoking Status: Former smoker Frequency of Alcohol Use: None Type of Drug Use: None 12 point system: reviewed and no additional remarkable complaints except as stated - Constitutional Constitutional: Present: as per HPI, lethargy, malaise, weakness - EENT Eyes: Present: as per HPI Ears: Present: as per HPI Nose, mouth and throat: Present: as per HPI - Cardiovascular Cardiovascular: Present: as per HPI - Respiratory Respiratory: Present: as per HPI - Gastrointestinal Gastrointestinal: Present: as per HPI, melena, nausea - Genitourinary Genitourinary: Present: as per HPI - Musculoskeletal Musculoskeletal: Present: as per HPI - Neurological Neurological: Present: as per HPI - Psychiatric Psychiatric: Present: as per HPI - Endocrine Endocrine: Present: as per HPI - Hematologic/Lymphatic Hematologic/Lymphatic: Present: as per HPI Exam - Constitutional Vitals: Period Temp Pulse Resp BP Sys/Vargas Pulse Ox Last 24 Hr 96.6 F-97.4 F 83-88 16-33 135-152/64-73 94-100 General appearance: normal weight, no acute distress - Head Head exam: Present: normal inspection, normocephalic - Eye Eye exam: Present: other (lids and conjunctiva unremarkable). Absent: scleral icterus - ENT ENT exam: Present: normal exam, normal oropharynx - Neck Neck exam: Present: normal inspection - Respiratory Respiratory exam: Present: clear to auscultation bilaterally. Absent: rales, rhonchi, wheezes - Cardiovascular Cardiovascular exam: Present: regular rate and rhythm. Absent: diastolic murmur , JVD, systolic murmur - GI/Abdominal GI/Abdominal exam: Present: normal bowel sounds, soft. Absent: ascites, distended, mass, organomegaly, tenderness - Extremities Exam Extremities exam: Present: normal inspection, full ROM - Back Exam Back exam: Present: normal inspection - Neurological Exam Neurological exam: Present: alert, oriented X3 - Psychiatric Psychiatric exam: Present: normal affect, normal mood - Skin Skin exam: Present: normal color, warm, dry Results - Labs CBC & BMP: 05/08/17 08:18 05/08/17 08:18 Lab Results: I have reviewed the past 24 hour labs Quality Measures - VTE Contraindication to Pharmacological VTE Prophylaxis: Already on Theraputic Agent , No Prophylaxis Needed
[2017-05-08] MEDS: BENZONATATE 100 MG CAPSULE PO PRN (12:19)
--- NOTE | 2017-05-08 14:18 | Nephrology Consult Note ---
History of Present Illness Chief complaint: admitted for rectal bleeding, referred for ESRD on CHD History of present illness: Ms. Betancourt is a 61 year old female with ESRD on CHD TTSa at [place] [facility]. Recently hospitalized volume overloaded and dialyzed daily to get to new EDW. She admits to noting blood in stool since Sunday becoming progressively worse. On chronic anticoagulation for MVR/AoVR, known hx of small bowel AVMs and GIB multiple admissions. K 6.8, H/H 01/30. Pt is seen on dialysis via right upper arm AVF. Home Medications Medication Instructions Recorded Confirmed Type Budesonide/Formoterol 160-4.5 2 puffs INH BID 03/03/17 05/08/17 History [Symbicort 160-4.5] Cyclobenzaprine [Flexeril] 10 mg PO TID 03/03/17 05/08/17 History HYDROcodone/ACETAMIN 10-325 [[place] 10 mg PO TID 03/03/17 05/08/17 History 10-325] Montelukast Tab [Singulair Tab] 10 mg PO BEDTIME 03/03/17 05/08/17 History OLANZapine [Olanzapine] 2.5 mg PO BID 03/03/17 05/08/17 History Pantoprazole Tab [Protonix Tab] 40 mg PO BID 03/03/17 05/08/17 History Pravastatin [Pravachol] 20 mg PO BEDTIME 03/03/17 05/08/17 History Ranolazine [Ranexa] 1,000 mg PO BID 03/03/17 05/08/17 History Temazepam [Restoril] 15 mg PO BEDTIME 03/03/17 05/08/17 History levETIRAcetam [Levetiracetam] 500 mg PO BID 03/03/17 05/08/17 History amLODIPine [Norvasc] 5 mg PO DAILY tablet 03/10/17 05/08/17 Rx Carvedilol [Coreg] 3.125 mg PO BID #0 tablet 04/04/17 05/08/17 Rx Aspirin EC Tab 81 mg PO DAILY 04/24/17 05/08/17 History Benzonatate [Tessalon] 100 mg PO TID PRN 04/24/17 05/08/17 History Calcium Acetate [Phoslo] 1,334 mg PO QID 04/24/17 05/08/17 History Cholestyramine/Aspartame 4 gm PO QOTHER DAY PRN 04/24/17 05/08/17 History [Cholestyramine Light Packet] Cinacalcet [Sensipar] 60 mg PO DAILY 04/24/17 05/08/17 History Levothyroxine Tab [Synthroid Tab] 100 mcg PO DAILY 04/24/17 05/08/17 History Linagliptin [Tradjenta] 5 mg PO DAILY 04/24/17 05/08/17 History Promethazine HCl 50 mg PO Q4-6H PRN 04/24/17 05/08/17 History rOPINIRole [Requip] 1 mg PO BEDTIME 04/24/17 05/08/17 History Warfarin [Coumadin] 7.5 mg PO DAILY@1800 tablet 05/02/17 05/08/17 Rx clonazePAM [Clonazepam] 1 mg PO TID 05/08/17 05/08/17 History Allergies Allergy/AdvReac Type Severity Reaction Status Date / Time Iodinated Contrast Media - Allergy RASH Verified 01/22/17 01:00 Oral and [Iodinated Contrast Media - IV Dye] Penicillins Allergy ANAPHYLAXIS Verified 01/22/17 01:00 aspirin AdvReac Nausea Verified 01/22/17 01:00 cephalexin [From Keflex] AdvReac Vomiting Verified 01/22/17 01:00 Sulfa (Sulfonamide AdvReac Vomiting Verified 01/22/17 01:00 Antibiotics) Medical,Surgical,& Family Hx - Medical History Cardio: History of: Cardiac Dysrhythmia, CAD (CABG x 3 (November 2016)), Hypertension, Valvular Heart Disease (mechanical AVR & MVR), Cardiovascular Problems (impression recent aortic issue.) Psychological: History of: Anxiety Disorders, Depression Neurology: History of: Peripheral Neuropathy (FEET/TOES), Vertigo No history of: Dementia, Seizures Endocrine: History of: Diabetes Mellitus (IDDM), Dyslipidemia Rheumatology: History of;: Fibromyalgia Respiratory: History of: Asthma, COPD Renal: History of: Dialysis, Renal Failure (ESRD) Gastrointestinal: History of: GERD, Gastrointestinal Bleed, Hepatitis (HEP B) Musculoskeletal: History of: Back/Neck Problems Hematology: History of: Anemia, Bleeding Problems (high inr), Clotting Problems (pt states she had a clot "three or four years ago") No history of: Blood Transfusion Reaction Other: History of: Miscellaneous Medical Problems (Sinus surgery) No history of: Anesthesia Reactions - Surgical History Cardiac Surgeries: Sugical HX of: Cardiac Catheterization (NO STENTS PLACE), Cardiac Surgery (mechanical MVR and AVR) Thoracic Surgeries: Patient denies;: Organ Transplant HEENT Surgeries: Surgical HX of: Tonsilectomy & Adenoidectomy Abdominal Surgeries: Surgical HX of: Abdominal Surgery (COLON REMOVED), Cholecystectomy Reproductive Surgeries: Surgical HX of;: Gynecologic Surgery, Hysterectomy - Family History Family History: Reports;: Family Cancer (mother ovarian, sister breast), Family Diabetes (mother), Family Heart Disease (mother -[place]), Family Hypertension ( mother), Family Stroke (mother and brother) - Social History Smoking Status: Former smoker Frequency of Alcohol Use: None Type of Drug Use: None Exam - Vital Signs Vital signs: Period Temp Pulse Resp BP Sys/Vargas Pulse Ox Last 24 Hr 96.6 F-97.6 F 83-88 16-33 135-152/64-73 94-100 - General Appearance General appearance: well-developed, chronically ill EENT: ATNC, PERRL, hearing intact, vision intact Neck: no JVD, no thyromegaly Respiratory: no kyphosis, clear Cardiology: no murmurs, no rub Gastrointestinal: normoactive bowel sounds, no tenderness Integumentary: no rash, warm and dry Neurologic: no focal deficit, no asterixis, alert and oriented x3 Musculoskeletal: no deformities, no erythema Psychiatric: mood/affect appropriate, cooperative Results - Labs CBC & BMP: 05/08/17 08:18 05/08/17 08:18 Assessment and Plan (1) GI bleed Problem details: transfusing pRBCs on HD. Status: Resolved Current Visit: No (2) Symptomatic anemia Status: Resolved Current Visit: No (3) Hx of mechanical aortic valve replacement Status: Chronic Current Visit: No (4) End-stage renal disease on hemodialysis Problem details: Next scheduled routine CHD tomorrow. Status: Chronic Current Visit: No (5) Hyperkalemia Problem details: Non urgent therapy. Status: Acute Assessment and plan: Routine CHD today. Next scheduled for . Current Visit: Yes (6) History of mitral valve replacement with mechanical valve Status: Chronic Current Visit: No (7) Pulmonary hypertension Status: Chronic Current Visit: No
[2017-05-08] MEDS: clonazePAM 0.5 MG TABLET PO SCH ×2 (17:24→21:14)
[2017-05-08] MEDS: levETIRAcetam 500 MG TABLET PO SCH (21:11)
[2017-05-08] MEDS: INSULIN REGULAR 100 UNIT/ML SUBCUT SCH (21:11)
[2017-05-08] MEDS: TEMAZEPAM 15 MG CAPSULE PO SCH (21:11)
[2017-05-08] MEDS: OLANZapine 2.5 MG TABLET PO SCH (21:11)
[2017-05-08] MEDS: rOPINIRole 1 MG TABLET PO SCH (21:12)
[2017-05-08] MEDS: RANOLAZINE 500 MG TABLET PO SCH (21:12)
[2017-05-08] MEDS: BUDESONIDE/FORMOTEROL 160-4.5 INHALER 6 GM INH SCH (23:16)
[2017-05-09] MEDS: BENZONATATE 100 MG CAPSULE PO PRN ×2 (04:16→14:46)
[2017-05-09 04:48] LABS: Basophils % 0.5 % (0.0-0.8); Eosinophils # 0.1 10*3/uL (0.0-0.87); Eosinophils % 1.4 % (0.00-10.9); Hematocrit 20.5 VOL% (35.7-47.0); Immature Granulocytes % 0.5 %; Immature Granulocytes Absolute 0.04 #; Lymphocytes # 1.5 10*3/uL (1.4-4.0); Lymphocytes % 18.9 % (21.3-54.2); Mean Corpuscular HGB Conc 34.1 GM/DL (32-36); Mean Corpuscular Hemoglobin 31 PG (27-34); Mean Corpuscular Volume 90.7 FL (87-102); Mean Platelet Volume 9.9 FL (9.6-12.0); Monocytes # 0.4 10*3/uL (0.11-0.8); Monocytes % 5.4 % (1.7-12.7); NRBC # 0.02 10*3/uL; Neutrophils # 5.7 10*3/uL (1.4-7.4); Neutrophils % 73.3 % (38.7-73.9); Platelet Count 142 T/CUMM (130-400); Red Blood Count 2.26 MC/CUMM (3.8-5.5); Red Cell Distribution Width 18.4 % (9.3-17.3); White Blood Count 7.8 T/CUMM (4-12)
[2017-05-09 04:57] LABS: PT Patient Result 21.6 SECS
[2017-05-09 05:09] LABS: Calcium 9.4 MG/DL (8.5-10.1); Osmolality,Calculated 287.5 MOS/KG (273-304); Potassium 4.5 MMOL/L (3.5-5.1); Troponin I Only 0.031 NG/ML (0.00-0.045)
[2017-05-09] MEDS: INSULIN REGULAR 100 UNIT/ML SUBCUT SCH ×4 (08:20→20:27)
[2017-05-09] MEDS: LEVOTHYROXINE 100 MCG TABLET PO SCH (08:21)
[2017-05-09] MEDS: RANOLAZINE 500 MG TABLET PO SCH ×2 (08:21→20:28)
[2017-05-09] MEDS: OLANZapine 2.5 MG TABLET PO SCH ×2 (08:21→20:28)
[2017-05-09] MEDS: levETIRAcetam 500 MG TABLET PO SCH ×2 (08:21→20:28)
[2017-05-09] MEDS: CINACALCET 30 MG TABLET PO SCH (08:22)
[2017-05-09] MEDS: BUDESONIDE/FORMOTEROL 160-4.5 INHALER 6 GM INH SCH ×2 (08:22→20:29)
[2017-05-09] MEDS: clonazePAM 0.5 MG TABLET PO SCH ×3 (08:22→20:28)
[2017-05-09] MEDS: PANTOPRAZOLE 40 MG TABLET PO SCH (08:22)
--- NOTE | 2017-05-09 10:01 | Hospitalist Progress Note ---
Assessment and Plan (1) GI bleed Problem details: transfusing pRBCs on HD. Status: Resolved Assessment and plan: The patient will be transferred to the floor now. We will transfuse an additional 2 units packed red blood cells. The patient has INR of 2.0 today. Coumadin was held yesterday and vitamin K dose was given due to supratherapeutic INR. Will restart Coumadin today at 5 mg instead of her usual 7.5 mg. We will recheck pro time tomorrow. Current Visit: No (2) Symptomatic anemia Status: Resolved Current Visit: No (3) Hx of mechanical aortic valve replacement Status: Chronic Current Visit: No (4) Chronic anticoagulation Status: Chronic Current Visit: No (5) AVM (arteriovenous malformation) of small bowel, acquired Status: Chronic Current Visit: No (6) End-stage renal disease on hemodialysis Status: Acute Current Visit: Yes Hospitalist: Subjective Interval history: Mrs. Betancourt is admitted to intensive care unit due to GI bleeding and hemodynamic instability. The patient received 3 units packed red blood cells over the night and now feels better. The patient has had fewer dark stools this morning. The patient is ready for transfer to the floor. Exam - Constitutional Vitals: Period Temp Pulse Resp BP Sys/Vargas Pulse Ox Last 24 Hr 96.7 F-98.6 F 81-105 16-33 99-178/59-90 93-99 Exam: Constitutional System: Mild distress. No tremulousness. There is a mild smell of melena in the room Head: Normocephalic, atraumatic. Ears, Nose and Throat System: No evidence of Otitis or Mastoiditis. No epistaxis or discharge Eyes System: Pupils equal, round, and reactive. Extraocular muscles intact. Neck: Supple, without adenopathy, No jugular venous distention. No thyromegaly , neck mass, or prior surgery apparent. Respiratory System: Chest clear to auscultation. Cardiovascular System: Heart with regular rate and rhythm. No murmur. GI System: Abdomen soft, nontender. Normo active bowel sounds present. Musculoskeletal System: limbs with no pedal edema. Full distal pulses. Neurological System: No discernable sensory deficit. No aphasia Psychiatric System: Conversation is rational Results - Labs CBC & BMP: 05/09/17 04:23 05/09/17 04:23 Lab Results: I have reviewed the past 24 hour labs Quality Measures - VTE Contraindication to Pharmacological VTE Prophylaxis: Already on Theraputic Agent , No Prophylaxis Needed
--- NOTE | 2017-05-09 10:46 | Nephrology Progress Note ---
Nephrology - PN: Subj Interval history: Pt denies SOB/pain. TOlerated routine CHD yesterday s complications. S/P 3u pRBCs overnight. Hct 20 this am. Exam (PN)-Nephrology - Vital Signs Vital signs: Period Temp Pulse Resp BP Sys/Vargas Pulse Ox Last 24 Hr 96.7 F-98.6 F 81-105 16-33 99-178/59-90 93-99 - General Appearance General appearance: well-developed, well-nourished, chronically ill EENT: ATNC, PERRL, hearing intact, vision intact Neck: no JVD, no carotid bruit Respiratory: no kyphosis, clear Cardiology: no murmurs, no rub Gastrointestinal: normoactive bowel sounds, no tenderness Integumentary: no rash, warm and dry Neurologic: no focal deficit, no asterixis, alert and oriented x3 Musculoskeletal: no deformities, no erythema Psychiatric: mood/affect appropriate, cooperative - Lab 05/09/17 04:23 05/09/17 04:23 Most recent lab results Calcium 9.4 MG/DL (8.5-10.1) 05/09/17 04:23 Magnesium 2.0 MG/DL (1.8-2.4) 05/09/17 04:23 Assessment and Plan (1) GI bleed Problem details: Additional transfusion today. Status: Resolved Current Visit: No (2) Symptomatic anemia Status: Resolved Current Visit: No (3) Hx of mechanical aortic valve replacement Status: Chronic Current Visit: No (4) End-stage renal disease on hemodialysis Problem details: Next scheduled routine CHD tomorrow. Status: Chronic Current Visit: No (5) Hyperkalemia Problem details: Non urgent therapy. Status: Acute Assessment and plan: Resolved. Low K/PO4 diet when taking po. Current Visit: Yes (6) History of mitral valve replacement with mechanical valve Status: Chronic Current Visit: No (7) Pulmonary hypertension Status: Chronic Current Visit: No
[2017-05-09] MEDS: ONDANSETRON 4 MG/2 ML VIAL IV PRN (11:19)
--- NOTE | 2017-05-09 11:21 | Gastrointestinal Progress Note ---
Assessment and Plan (1) GI bleed Problem details: Additional transfusion today. Status: Resolved Assessment and plan: 05/09-No overt bleeding reported. HH 04/05, to receive 2 more units PRBC and transfer to floor. INR at 2. Continue to monitor. Plan and addendum to follow by DR Luke. 05/08-Several day history of melena with c/o nausea and findings of HH of 01/29 with prior history of anemia and multiple GI bleeds and known AVMs in the past with recent endoscopy in February with normal flex sig and EGD. Being transfused at this time. Continue to monitor serial HH. Plan and addendum to follow by DR Luke. Current Visit: No (2) Symptomatic anemia Status: Resolved Current Visit: No Gastroenterology - PN: Subj Interval history: CC: GI bleed, anemia Pt is seen awake and alert sitting up on side of bed. States she is feeling much better following her transfusion. She states she has not had any overt bleeding other than a dark stool yesterday. She denies any abdominal pain, nausea or vomiting. She has received three units of PRBC and to be transfused 2 more today. HH today is at 04/05. She is also to be transfered to the floor today. Her INR is currently at 2.0 and is to be restarted today according to nursing staff. Abdomen is soft, nontender. ROS: Denies SOB or chest pain Exam (Progress Note) - Constitutional Vitals: Period Temp Pulse Resp BP Sys/Vargas Pulse Ox Last 24 Hr 96.7 F-98.6 F 81-105 16-32 99-178/59-90 93-99 - Other Additional findings: General appearance: normal weight, no acute distress - Head Head exam: Present: normal inspection, normocephalic - Eye Eye exam: Present: other (lids and conjunctiva unremarkable). Absent: scleral icterus - ENT ENT exam: Present: normal exam, normal oropharynx - Neck Neck exam: Present: normal inspection - Respiratory Respiratory exam: Present: clear to auscultation bilaterally. Absent: rales, rhonchi, wheezes - Cardiovascular Cardiovascular exam: Present: regular rate and rhythm. Absent: diastolic murmur , JVD, systolic murmur - GI/Abdominal GI/Abdominal exam: Present: normal bowel sounds, soft. Absent: ascites, distended, mass, organomegaly, tenderness - Extremities Exam Extremities exam: Present: normal inspection, full ROM - Back Exam Back exam: Present: normal inspection - Neurological Exam Neurological exam: Present: alert, oriented X3 - Psychiatric Psychiatric exam: Present: normal affect, normal mood - Skin Skin exam: Present: normal color, warm, dry Results - Labs CBC & BMP: 05/09/17 04:23 05/09/17 04:23 Lab Results: I have reviewed the past 24 hour labs
[2017-05-09] MEDS: CARVEDILOL 3.125 MG TABLET PO SCH ×2 (14:46→20:27)
[2017-05-09] MEDS: sitaGLIPtin 25 MG TABLET PO SCH (14:46)
[2017-05-09] MEDS ORDERED: SODIUM CHLORIDE 0.9% 250 ML IV PRN (14:53)
[2017-05-09] MEDS: ALBUTEROL 2.5 MG/3 ML NEB RESP TX PRN (17:34)
[2017-05-09] MEDS: WARFARIN 5 MG TABLET PO SCH ×2 (17:51→18:01)
[2017-05-09] MEDS: rOPINIRole 1 MG TABLET PO SCH (20:28)
[2017-05-09] MEDS: TEMAZEPAM 15 MG CAPSULE PO SCH (20:28)
[2017-05-10 07:31] LABS: Basophils % 0.4 % (0.0-0.8); Eosinophils # 0.2 10*3/uL (0.0-0.87); Eosinophils % 2.4 % (0.00-10.9); Immature Granulocytes % 0.6 %; Immature Granulocytes Absolute 0.04 #; Lymphocytes # 1.2 10*3/uL (1.4-4.0); Lymphocytes % 16.5 % (21.3-54.2); Mean Corpuscular HGB Conc 33.9 GM/DL (32-36); Mean Corpuscular Hemoglobin 31 PG (27-34); Mean Corpuscular Volume 92.3 FL (87-102); Mean Platelet Volume 10.3 FL (9.6-12.0); Monocytes # 0.4 10*3/uL (0.11-0.8); Monocytes % 6.3 % (1.7-12.7); NRBC # 0.02 10*3/uL; Neutrophils # 5.2 10*3/uL (1.4-7.4); Neutrophils % 73.8 % (38.7-73.9); Platelet Count 147 T/CUMM (130-400); Red Blood Count 1.95 MC/CUMM (3.8-5.5); Red Cell Distribution Width 18.3 % (9.3-17.3)
[2017-05-10 07:36] LABS: Hemoglobin 6.1 GM/DL (12.0-16.0)
[2017-05-10 07:47] LABS: Calcium 10.4 MG/DL (8.5-10.1); Magnesium 2.1 MG/DL (1.8-2.4); Osmolality,Calculated 296.8 MOS/KG (273-304); Potassium 5.1 MMOL/L (3.5-5.1)
--- NOTE | 2017-05-10 08:26 | XRay Report ---
History is CHF Comparison 05/08/2017 The heart is enlarged with continued vascular congestion and mild interstitial edema. There is been improvement in the interval. Tiny underlying effusion on the right remains. Impression: Mild improvement with continued diffuse pulmonary edema PROCEDURE INTERPRETED AT [facility] DEPARTMENT OF RADIOLOGY Final Report Signed by: Dr. Amanda Pelletier
[2017-05-10] MEDS: levETIRAcetam 500 MG TABLET PO SCH ×2 (09:30→20:30)
[2017-05-10] MEDS: INSULIN REGULAR 100 UNIT/ML SUBCUT SCH ×4 (09:30→20:30)
[2017-05-10] MEDS: BUDESONIDE/FORMOTEROL 160-4.5 INHALER 6 GM INH SCH ×2 (09:30→20:31)
[2017-05-10] MEDS: RANOLAZINE 500 MG TABLET PO SCH ×2 (09:30→20:30)
[2017-05-10] MEDS: clonazePAM 0.5 MG TABLET PO SCH ×4 (09:30→20:30)
[2017-05-10] MEDS: OLANZapine 2.5 MG TABLET PO SCH ×2 (09:30→20:30)
[2017-05-10] MEDS: LEVOTHYROXINE 100 MCG TABLET PO SCH (09:30)
[2017-05-10] MEDS: CARVEDILOL 3.125 MG TABLET PO SCH ×2 (09:30→20:30)
[2017-05-10] MEDS: CINACALCET 30 MG TABLET PO SCH (09:30)
[2017-05-10] MEDS: sitaGLIPtin 25 MG TABLET PO SCH (09:30)
[2017-05-10] MEDS: PANTOPRAZOLE 40 MG TABLET PO SCH (09:30)
--- NOTE | 2017-05-10 11:41 | Dialysis Note ---
Dialysis Note - Dialysis Note S: Pt seen on dialysis. C/o continued rectal bleeding. O: VSS, Hgb 6.1 this am. A: ESRD on CHD. Tolerating well s complications. P: Transfusion while on HD today. GI to scope today. Continue routine CHD as prescribed. Next scheduled for Sunday.
--- NOTE | 2017-05-10 14:26 | Operative Note ---
Date of procedure: 05/10/17 Pre-op diagnosis: GI bleed with melena Procedure: Procedure: Esophagogastroduodenoscopy with small bowel enteroscopy and heater probe coagulation of duodenal vascular malformations Brief clinical abstract: 61-year-old female with end-stage renal disease and known GI vascular malformations with recurrent bleeding and anemia is admitted with recent melena. She has been transfused a total of 6 units of packed red blood cells. Indication for procedure: GI bleed with melena Endoscopic findings:[After informed consent was obtained, the patient was placed in the left lateral decubitus position. The gastroscope was inserted in the upper esophagus under direct vision with no resistance encountered. Esophageal mucosa appeared normal with squamocolumnar junction sharply demarcated above a small hiatal hernia. The endoscope was advanced in the stomach which was carefully examined including retroflexed view of the cardia and fundus. There were a couple punctate vascular malformations in the proximal fundus of the stomach which I coagulated with heater probe on a setting of 25 W. The duodenal bulb, second and third portion of the duodenum were examined. Several small punctate vascular malformations were noted in the duodenal bulb which were also coagulated with heater probe on setting of 15 W. The gastroscope was withdrawn. Pediatric videocolonoscope was inserted in the upper esophagus and advanced to the proximal jejunum. There was a good bit of bright red blood with clot in the fourth portion of the duodenum. This was washed away and suctioned to reveal a bleeding vascular malformation which was around 2 mm diameter. It was coagulated with heater probe on 15 W setting also with good results. All of the blood was cleared from the small bowel and no further accumulation was noted. The endoscope was removed. She appeared to tolerate the procedure well. Impression: #1 duodenal vascular malformations-with active oozing; status post heater probe coagulation #2 gastric vascular malformations-coagulated also Recommendations: Advance diet and continue observation with serial hemoglobins for now. Anesthesia: MAC Surgeon / Physician: Darion Luke Estimated blood loss: minimal Specimens: none sent Condition: stable Disposition: post procedure unit Results - Labs CBC & BMP: 05/10/17 06:29 05/10/17 06:29 Discharge Plan - Discharge Medications No Action OLANZapine [Olanzapine] 2.5 mg PO BID Ranolazine [Ranexa] 1,000 mg PO BID Montelukast Tab [Singulair Tab] 10 mg PO BEDTIME Temazepam [Restoril] 15 mg PO BEDTIME Pantoprazole Tab [Protonix Tab] 40 mg PO BID HYDROcodone/ACETAMIN 10-325 [Turrell 10-325] 10 mg PO TID Cyclobenzaprine [Flexeril] 10 mg PO TID amLODIPine [Norvasc] 5 mg PO DAILY tablet Carvedilol [Coreg] 3.125 mg PO BID #0 tablet Levothyroxine Tab [Synthroid Tab] 100 mcg PO DAILY Aspirin EC Tab 81 mg PO DAILY Benzonatate [Tessalon] 100 mg PO TID PRN PRN Reason: Cough Promethazine HCl 50 mg PO Q4-6H PRN PRN Reason: Nausea rOPINIRole [Requip] 1 mg PO BEDTIME Cholestyramine/Aspartame [Cholestyramine Light Packet] 4 gm PO QOTHER DAY PRN PRN Reason: cholesterol Calcium Acetate [Phoslo] 1,334 mg PO QID Warfarin [Coumadin] 7.5 mg PO DAILY@1800 tablet clonazePAM [Clonazepam] 1 mg PO TID levETIRAcetam [Levetiracetam] 500 mg PO BID Budesonide/Formoterol 160-4.5 [Symbicort 160-4.5] 2 puffs INH BID Pravastatin [Pravachol] 20 mg PO BEDTIME Linagliptin [Tradjenta] 5 mg PO DAILY Cinacalcet [Sensipar] 60 mg PO DAILY - Follow Up or Referral - Forms/Instructions
--- NOTE | 2017-05-10 14:31 | Anesthesia Post-Op ---
Anesthesia Post OP - Post Ansesthetic Evaluation Patient seen in post op: Yes Resp: within normal limits CV: within normal limits Mental: within normal limits Temp: within normal limits Giyn-Ku-Kefctkwox: within normal limits Nausea and Vomiting: within normal limits Pain: within normal limits
[2017-05-10] MEDS ORDERED: ONDANSETRON 4 MG/2 ML VIAL ONE (14:40)
[2017-05-10] MEDS: ONDANSETRON 4 MG/2 ML VIAL IV PRN (14:57)
[2017-05-10] MEDS: BENZONATATE 100 MG CAPSULE PO PRN ×2 (15:58→20:35)
[2017-05-10] MEDS: WARFARIN 5 MG TABLET PO SCH (17:50)
--- NOTE | 2017-05-10 20:25 | Hospitalist Progress Note ---
Assessment and Plan (1) GI bleed Problem details: Additional transfusion today. Status: Resolved Assessment and plan: The patient is resting quietly on 5 E.. We transfused an additional 2 units packed red blood cells. Will recheck INR tomorrow. Coumadin was held yesterday and vitamin K dose was given due to supratherapeutic INR. Will restart Coumadin today at 5 mg instead of her usual 7.5 mg. We will recheck pro time tomorrow. Current Visit: No (2) Symptomatic anemia Status: Resolved Current Visit: No (3) Hx of mechanical aortic valve replacement Status: Chronic Current Visit: No (4) Chronic anticoagulation Status: Chronic Current Visit: No (5) AVM (arteriovenous malformation) of small bowel, acquired Status: Chronic Current Visit: No (6) End-stage renal disease on hemodialysis Status: Acute Current Visit: Yes Hospitalist: Subjective Interval history: The patient is resting quietly in bed today. The patient had hemodialysis this morning and concurrent blood transfusion. This afternoon Dr. Luke was able to do heater probe cauterization of arteriovenous malformations in the stomach and duodenum. The patient is awake alert and in good spirits. She feels well. Exam - Constitutional Vitals: Period Temp Pulse Resp BP Sys/Vargas Pulse Ox Last 24 Hr 96.1 F-98.2 F 78-86 16-20 114-146/53-088 91-100 Exam: Constitutional System: Mild distress. No tremulousness. There is a mild smell of melena in the room Head: Normocephalic, atraumatic. Ears, Nose and Throat System: No evidence of Otitis or Mastoiditis. No epistaxis or discharge Eyes System: Pupils equal, round, and reactive. Extraocular muscles intact. Neck: Supple, without adenopathy, No jugular venous distention. No thyromegaly , neck mass, or prior surgery apparent. Respiratory System: Chest clear to auscultation. Cardiovascular System: Heart with regular rate and rhythm. No murmur. GI System: Abdomen soft, nontender. Normo active bowel sounds present. Musculoskeletal System: limbs with no pedal edema. Full distal pulses. Neurological System: No discernable sensory deficit. No aphasia Psychiatric System: Conversation is rational Results - Labs CBC & BMP: 05/10/17 06:29 08/24/17 06:29 Lab Results: I have reviewed the past 24 hour labs Quality Measures - VTE Contraindication to Pharmacological VTE Prophylaxis: Already on Theraputic Agent , No Prophylaxis Needed
[2017-05-10] MEDS: TEMAZEPAM 15 MG CAPSULE PO SCH (20:30)
[2017-05-10] MEDS: rOPINIRole 1 MG TABLET PO SCH (20:30)
[2017-05-11 05:51] LABS: Basophils % 0.5 % (0.0-0.8); Eosinophils # 0.2 10*3/uL (0.0-0.87); Eosinophils % 2.8 % (0.00-10.9); Hematocrit 23.4 VOL% (35.7-47.0); Hemoglobin 7.8 GM/DL (12.0-16.0); Immature Granulocytes % 0.5 %; Immature Granulocytes Absolute 0.03 #; Lymphocytes # 1.2 10*3/uL (1.4-4.0); Mean Corpuscular HGB Conc 33.3 GM/DL (32-36); Mean Corpuscular Hemoglobin 32 PG (27-34); Mean Corpuscular Volume 95.1 FL (87-102); Mean Platelet Volume 10.3 FL (9.6-12.0); Monocytes # 0.4 10*3/uL (0.11-0.8); Neutrophils # 4.5 10*3/uL (1.4-7.4); Neutrophils % 71.2 % (38.7-73.9); Platelet Count 134 T/CUMM (130-400); Red Blood Count 2.46 MC/CUMM (3.8-5.5); Red Cell Distribution Width 17.8 % (9.3-17.3); White Blood Count 6.3 T/CUMM (4-12)
[2017-05-11 06:09] LABS: INR 1.2; PT Patient Result 12.6 SECS
[2017-05-11 06:26] LABS: Calcium 10.1 MG/DL (8.5-10.1); Magnesium 2.1 MG/DL (1.8-2.4); Osmolality,Calculated 290.4 MOS/KG (273-304); Potassium 4.7 MMOL/L (3.5-5.1)
[2017-05-11] MEDS: sitaGLIPtin 25 MG TABLET PO SCH (08:29)
[2017-05-11] MEDS: CARVEDILOL 3.125 MG TABLET PO SCH ×2 (08:29→21:07)
[2017-05-11] MEDS: LEVOTHYROXINE 100 MCG TABLET PO SCH (08:29)
[2017-05-11] MEDS: RANOLAZINE 500 MG TABLET PO SCH ×2 (08:29→21:07)
[2017-05-11] MEDS: levETIRAcetam 500 MG TABLET PO SCH ×2 (08:29→21:07)
[2017-05-11] MEDS: PANTOPRAZOLE 40 MG TABLET PO SCH (08:29)
[2017-05-11] MEDS: OLANZapine 2.5 MG TABLET PO SCH ×2 (08:29→21:07)
[2017-05-11] MEDS: CINACALCET 30 MG TABLET PO SCH (08:29)
[2017-05-11] MEDS: INSULIN REGULAR 100 UNIT/ML SUBCUT SCH ×4 (08:30→21:08)
[2017-05-11] MEDS: clonazePAM 0.5 MG TABLET PO SCH ×3 (08:30→21:07)
[2017-05-11] MEDS: BUDESONIDE/FORMOTEROL 160-4.5 INHALER 6 GM INH SCH ×2 (08:31→21:09)
--- NOTE | 2017-05-11 08:35 | Gastrointestinal Progress Note ---
Assessment and Plan (1) GI bleed Problem details: Additional transfusion today. Status: Resolved Assessment and plan: 05/11-continued dark stools but no bright red noted. H&H 04/08. Total of 5 units of packed red blood cells transfused since admission. INR 1.2. Continue to check serial H&H at this time. Plan an addendum to followed by Dr. Luke. 05/09-No overt bleeding reported. HH 04/05, to receive 2 more units PRBC and transfer to floor. INR at 2. Continue to monitor. Plan and addendum to follow by DR Luke. 05/08-Several day history of melena with c/o nausea and findings of HH of 01/29 with prior history of anemia and multiple GI bleeds and known AVMs in the past with recent endoscopy in February with normal flex sig and EGD. Being transfused at this time. Continue to monitor serial HH. Plan and addendum to follow by DR Luke. Current Visit: No (2) Symptomatic anemia Status: Resolved Current Visit: No Gastroenterology - PN: Subj Interval history: CC: GI bleed, melena Patient is seen awake and alert sitting up in bed. States she rested well last night. She denies any abdominal pain, nausea or vomiting. She is tolerating her diet well. She states that she is still passing some dark stool however denies any bright red blood noted. Findings of EGD on yesterday with duodenal and gastric AVMs with heater probe treatment. H&H is 04/08. She has had a total of 5 units of packed red blood cells since admission. Her Coumadin has been resumed and INR is at 1.2 today. Abdomen is soft, nontender. Patient is for dialysis on tomorrow. ROS: Denies shortness of breath or chest pain Exam (Progress Note) - Constitutional Vitals: Period Temp Pulse Resp BP Sys/Vargas Pulse Ox Last 24 Hr 96.1 F-97.8 F 79-85 16-20 103-135/58-088 90-100 - Other Additional findings: General appearance: normal weight, no acute distress - Head Head exam: Present: normal inspection, normocephalic - Eye Eye exam: Present: other (lids and conjunctiva unremarkable). Absent: scleral icterus - ENT ENT exam: Present: normal exam, normal oropharynx - Neck Neck exam: Present: normal inspection - Respiratory Respiratory exam: Present: clear to auscultation bilaterally. Absent: rales, rhonchi, wheezes - Cardiovascular Cardiovascular exam: Present: regular rate and rhythm. Absent: diastolic murmur , JVD, systolic murmur - GI/Abdominal GI/Abdominal exam: Present: normal bowel sounds, soft. Absent: ascites, distended, mass, organomegaly, tenderness - Extremities Exam Extremities exam: Present: normal inspection, full ROM - Back Exam Back exam: Present: normal inspection - Neurological Exam Neurological exam: Present: alert, oriented X3 - Psychiatric Psychiatric exam: Present: normal affect, normal mood - Skin Skin exam: Present: normal color, warm, dry Results - Labs CBC & BMP: 05/11/17 04:43 05/11/17 04:43 Lab Results: I have reviewed the past 24 hour labs Specialty Discharge - Follow Up or Referrals
[2017-05-11] MEDS: BENZONATATE 100 MG CAPSULE PO PRN ×3 (09:13→21:16)
--- NOTE | 2017-05-11 10:30 | Nephrology Progress Note ---
Nephrology - PN: Subj Interval history: Pt denies SOB/pain. Still with blood per rectum. Transfused 3u pRBCs on dialysis yesterday. Suboptimal response. Exam (PN)-Nephrology - Vital Signs Vital signs: Period Temp Pulse Resp BP Sys/Vargas Pulse Ox Last 24 Hr 96.1 F-97.8 F 79-93 16-20 103-135/58-088 90-100 - General Appearance General appearance: well-developed, chronically ill EENT: ATNC, PERRL, mucous membranes moist, hearing intact, vision intact Neck: no JVD, no thyromegaly Respiratory: no kyphosis, clear Cardiology: mid-systolic murmur, no rub, edema Gastrointestinal: normoactive bowel sounds, no tenderness Integumentary: no rash, warm and dry Neurologic: no focal deficit, no asterixis, alert and oriented x3 Musculoskeletal: no deformities, no erythema Psychiatric: mood/affect appropriate, cooperative - Lab 05/11/17 04:43 05/11/17 04:43 Most recent lab results Calcium 10.1 MG/DL (8.5-10.1) 05/11/17 04:43 Magnesium 2.1 MG/DL (1.8-2.4) 05/11/17 04:43 Assessment and Plan (1) End-stage renal disease on hemodialysis Problem details: Next scheduled routine CHD tomorrow. Status: Chronic Assessment and plan: Challenge EDW tomorrow. May require more blood during dialysis. Current Visit: No (2) GI bleed Problem details: Still with ongoing blood loss. Status: Acute Current Visit : No (3) Symptomatic anemia Status: Resolved Current Visit: No (4) Hx of mechanical aortic valve replacement Status: Chronic Current Visit: No (5) Hyperkalemia Problem details: Non urgent therapy. Status: Acute Assessment and plan: Resolved. Low K/PO4 diet when taking po. Current Visit: Yes (6) History of mitral valve replacement with mechanical valve Status: Chronic Current Visit: No (7) Pulmonary hypertension Status: Chronic Current Visit: No Specialty Discharge - Follow Up or Referrals
[2017-05-11 16:11] LABS: Hematocrit 23.5 VOL% (35.7-47.0); Hemoglobin 7.8 GM/DL (12.0-16.0)
--- NOTE | 2017-05-11 17:10 | Hospitalist Progress Note ---
Assessment and Plan (1) GI bleed Problem details: Still with ongoing blood loss. Status: Acute Assessment and plan: The patient is resting quietly on 5 E.. We are going to restart Coumadin today. Will recheck INR in the morning. The patient will be observed over the weekend. Current Visit: No (2) Symptomatic anemia Status: Resolved Current Visit: No (3) Hx of mechanical aortic valve replacement Status: Chronic Current Visit: No (4) Chronic anticoagulation Status: Chronic Current Visit: No (5) AVM (arteriovenous malformation) of small bowel, acquired Status: Chronic Current Visit: No (6) End-stage renal disease on hemodialysis Status: Acute Current Visit: Yes Hospitalist: Subjective Interval history: Ms. Betancourt is resting quietly today. There are no stigmata of GI bleeding at the present time. We will recheck hemoglobin tomorrow. Exam - Constitutional Vitals: Period Temp Pulse Resp BP Sys/Vargas Pulse Ox Last 24 Hr 96.3 F-97.9 F 76-93 16-20 103-132/58-71 90-99 Exam: Constitutional System: Mild distress. No tremulousness. There is a mild smell of melena in the room Head: Normocephalic, atraumatic. Ears, Nose and Throat System: No evidence of Otitis or Mastoiditis. No epistaxis or discharge Eyes System: Pupils equal, round, and reactive. Extraocular muscles intact. Neck: Supple, without adenopathy, No jugular venous distention. No thyromegaly , neck mass, or prior surgery apparent. Respiratory System: Chest clear to auscultation. Cardiovascular System: Heart with regular rate and rhythm. No murmur. GI System: Abdomen soft, nontender. Normo active bowel sounds present. Musculoskeletal System: limbs with no pedal edema. Full distal pulses. Neurological System: No discernable sensory deficit. No aphasia Psychiatric System: Conversation is rational Results - Labs CBC & BMP: 05/11/17 15:42 05/11/17 04:43 Lab Results: I have reviewed the past 24 hour labs Quality Measures - VTE Contraindication to Pharmacological VTE Prophylaxis: Already on Theraputic Agent , No Prophylaxis Needed Specialty Discharge - Follow Up or Referrals
[2017-05-11] MEDS: WARFARIN 5 MG TABLET PO SCH (17:50)
[2017-05-11] MEDS: rOPINIRole 1 MG TABLET PO SCH (21:07)
[2017-05-11] MEDS: TEMAZEPAM 15 MG CAPSULE PO SCH (21:07)
[2017-05-11] MEDS: ONDANSETRON 4 MG/2 ML VIAL IV PRN (23:16)
[2017-05-12 01:30] LABS: Hematocrit 22.7 VOL% (35.7-47.0); Hemoglobin 7.6 GM/DL (12.0-16.0)
[2017-05-12 07:47] LABS: INR 1.2; PT Patient Result 12.3 SECS
[2017-05-12] MEDS: INSULIN REGULAR 100 UNIT/ML SUBCUT SCH ×4 (08:32→20:51)
[2017-05-12] MEDS: sitaGLIPtin 25 MG TABLET PO SCH (08:33)
[2017-05-12] MEDS: CINACALCET 30 MG TABLET PO SCH (08:33)
[2017-05-12] MEDS: PANTOPRAZOLE 40 MG TABLET PO SCH (08:33)
[2017-05-12] MEDS: RANOLAZINE 500 MG TABLET PO SCH ×2 (08:33→20:12)
[2017-05-12] MEDS: levETIRAcetam 500 MG TABLET PO SCH ×2 (08:33→20:13)
[2017-05-12] MEDS: LEVOTHYROXINE 100 MCG TABLET PO SCH (08:33)
[2017-05-12] MEDS: clonazePAM 0.5 MG TABLET PO SCH ×3 (08:34→20:12)
[2017-05-12] MEDS: OLANZapine 2.5 MG TABLET PO SCH ×2 (08:34→20:13)
[2017-05-12] MEDS: CARVEDILOL 3.125 MG TABLET PO SCH ×2 (08:34→20:12)
[2017-05-12] MEDS ORDERED: SODIUM CHLORIDE 0.9% 250 ML IV PRN (08:34)
[2017-05-12] MEDS: BENZONATATE 100 MG CAPSULE PO PRN ×3 (08:35→20:13)
[2017-05-12] MEDS: BUDESONIDE/FORMOTEROL 160-4.5 INHALER 6 GM INH SCH ×2 (08:37→20:13)
--- NOTE | 2017-05-12 08:37 | Nephrology Progress Note ---
Nephrology - PN: Subj Interval history: Ms. Betancourt is seen in follow-up of her end-stage renal disease and GI bleed with chronic anticoagulation because of a valve replacement. Her hematocrit is 22% we will give 2 units packed red cells on dialysis today. She is doing fairly well but is somewhat short of breath with exertion likely due to her anemia. Her chest is clear she has no edema. She will be dialyzed today Exam (PN)-Nephrology - Vital Signs Vital signs: Period Temp Pulse Resp BP Sys/Vargas Pulse Ox Last 24 Hr 96.3 F-97.9 F 72-87 16-22 114-132/59-72 92-100 - Lab 05/12/17 01:23 05/11/17 04:43 Most recent lab results Calcium 10.1 MG/DL (8.5-10.1) 05/11/17 04:43 Magnesium 2.1 MG/DL (1.8-2.4) 05/11/17 04:43 Specialty Discharge - Follow Up or Referrals
[2017-05-12] MEDS ORDERED: LIDOCAINE/PRILOCAINE CREAM 5 GM TUBE TOP SCH (09:00)
[2017-05-12 09:39] LABS: Hematocrit 23.2 VOL% (35.7-47.0); Hemoglobin 7.7 GM/DL (12.0-16.0)
--- NOTE | 2017-05-12 14:26 | Hospitalist Progress Note ---
Assessment and Plan (1) GI bleed Problem details: Still with ongoing blood loss. Status: Acute Assessment and plan: The patient is resting quietly on 5 E.. Coumadin has been restarted. The patient is received therapeutic anticoagulation with Lovenox and we are waiting for Coumadin to be with an INR in the therapeutic range. Current Visit: No (2) Symptomatic anemia Status: Resolved Current Visit: No (3) Hx of mechanical aortic valve replacement Status: Chronic Current Visit: No (4) Chronic anticoagulation Status: Chronic Current Visit: No (5) AVM (arteriovenous malformation) of small bowel, acquired Status: Chronic Current Visit: No (6) End-stage renal disease on hemodialysis Status: Acute Current Visit: Yes Hospitalist: Subjective Interval history: The patient has no new symptoms. She has had some shortness of breath but better since she had transfusion. The patient will have dialysis today. Exam - Constitutional Vitals: Period Temp Pulse Resp BP Sys/Vargas Pulse Ox Last 24 Hr 97.3 F-97.9 F 72-83 16-22 114-127/59-72 92-100 Exam: Constitutional System: Mild distress. No tremulousness. There is a mild smell of melena in the room Head: Normocephalic, atraumatic. Ears, Nose and Throat System: No evidence of Otitis or Mastoiditis. No epistaxis or discharge Eyes System: Pupils equal, round, and reactive. Extraocular muscles intact. Neck: Supple, without adenopathy, No jugular venous distention. No thyromegaly , neck mass, or prior surgery apparent. Respiratory System: Chest clear to auscultation. Cardiovascular System: Heart with regular rate and rhythm. No murmur. GI System: Abdomen soft, nontender. Normo active bowel sounds present. Musculoskeletal System: limbs with no pedal edema. Full distal pulses. Neurological System: No discernable sensory deficit. No aphasia Psychiatric System: Conversation is rational Results - Labs CBC & BMP: 05/12/17 08:57 05/11/17 04:43 Lab Results: I have reviewed the past 24 hour labs Quality Measures - VTE Contraindication to Pharmacological VTE Prophylaxis: Already on Theraputic Agent , No Prophylaxis Needed Specialty Discharge - Follow Up or Referrals
--- NOTE | 2017-05-12 15:26 | Dialysis Note ---
Dialysis Note - Dialysis Note Ms. Betancourt is seen during her hemodialysis she is tolerating it well. We will plan to give 2 units packed cells during her dialysis. Overall she is stable
[2017-05-12] MEDS: WARFARIN 5 MG TABLET PO SCH (18:41)
[2017-05-12] MEDS: rOPINIRole 1 MG TABLET PO SCH (20:12)
[2017-05-12] MEDS: TEMAZEPAM 15 MG CAPSULE PO SCH (20:12)
[2017-05-13] MEDS: ONDANSETRON 4 MG/2 ML VIAL IV PRN ×3 (01:49→21:03)
[2017-05-13 07:08] LABS: Basophils # 0.1 10*3/uL (0.0-0.2); Basophils % 0.8 % (0.0-0.8); Eosinophils # 0.2 10*3/uL (0.0-0.87); Eosinophils % 2.5 % (0.00-10.9); Hematocrit 28.4 VOL% (35.7-47.0); Hemoglobin 9.4 GM/DL (12.0-16.0); Immature Granulocytes % 0.5 %; Immature Granulocytes Absolute 0.03 #; Lymphocytes # 1.2 10*3/uL (1.4-4.0); Lymphocytes % 18.2 % (21.3-54.2); Mean Corpuscular HGB Conc 33.1 GM/DL (32-36); Mean Corpuscular Hemoglobin 31 PG (27-34); Mean Corpuscular Volume 94.7 FL (87-102); Mean Platelet Volume 10.6 FL (9.6-12.0); Monocytes # 0.4 10*3/uL (0.11-0.8); Monocytes % 6.6 % (1.7-12.7); Neutrophils # 4.6 10*3/uL (1.4-7.4); Neutrophils % 71.4 % (38.7-73.9); Platelet Count 120 T/CUMM (130-400); White Blood Count 6.4 T/CUMM (4-12)
[2017-05-13 07:43] LABS: Calcium 9.9 MG/DL (8.5-10.1); Osmolality,Calculated 283.7 MOS/KG (273-304); Potassium 4.8 MMOL/L (3.5-5.1)
[2017-05-13] MEDS: ALBUTEROL 2.5 MG/3 ML NEB RESP TX PRN (08:30)
[2017-05-13] MEDS: CINACALCET 30 MG TABLET PO SCH (09:23)
[2017-05-13] MEDS: sitaGLIPtin 25 MG TABLET PO SCH (09:23)
[2017-05-13] MEDS: OLANZapine 2.5 MG TABLET PO SCH ×2 (09:23→20:59)
[2017-05-13] MEDS: INSULIN REGULAR 100 UNIT/ML SUBCUT SCH ×4 (09:23→20:07)
[2017-05-13] MEDS: levETIRAcetam 500 MG TABLET PO SCH ×2 (09:23→20:59)
[2017-05-13] MEDS: LEVOTHYROXINE 100 MCG TABLET PO SCH (09:23)
[2017-05-13] MEDS: BUDESONIDE/FORMOTEROL 160-4.5 INHALER 6 GM INH SCH ×2 (09:24→21:02)
[2017-05-13] MEDS: CARVEDILOL 3.125 MG TABLET PO SCH ×2 (09:24→20:59)
[2017-05-13] MEDS: clonazePAM 0.5 MG TABLET PO SCH ×3 (09:24→20:59)
[2017-05-13] MEDS: PANTOPRAZOLE 40 MG TABLET PO SCH (09:24)
[2017-05-13] MEDS: RANOLAZINE 500 MG TABLET PO SCH ×2 (09:24→20:59)
[2017-05-13] MEDS: BENZONATATE 100 MG CAPSULE PO PRN ×3 (09:28→20:59)
--- NOTE | 2017-05-13 10:45 | Nephrology Progress Note ---
Nephrology - PN: Subj Interval history: Ms. Betancourt is seen in follow-up for end-stage renal disease. She dialyzed yesterday uneventfully. Her chest is clear. She is complaining of some mild nausea this morning but her abdomen soft and she has good bowel sounds. She will continue with her scheduled hemodialysis Exam (PN)-Nephrology - Vital Signs Vital signs: Period Temp Pulse Resp BP Sys/Vargas Pulse Ox Last 24 Hr 96.9 F-98.1 F 80-93 16-20 126-144/67-86 94-100 - Lab 05/13/17 06:19 05/13/17 06:19 Most recent lab results Calcium 9.9 MG/DL (8.5-10.1) 05/13/17 06:19 Magnesium 2.0 MG/DL (1.8-2.4) 05/13/17 06:19 Specialty Discharge - Follow Up or Referrals
--- NOTE | 2017-05-13 13:01 | Hospitalist Progress Note ---
Assessment and Plan (1) GI bleed Problem details: Still with ongoing blood loss. Status: Acute Assessment and plan: The patient is resting quietly on 5 E.. Coumadin has been restarted. The patient is received therapeutic anticoagulation with Lovenox and we are waiting for Coumadin to be with an INR in the therapeutic range. Current Visit: No (2) Symptomatic anemia Status: Resolved Current Visit: No (3) Hx of mechanical aortic valve replacement Status: Chronic Current Visit: No (4) Chronic anticoagulation Status: Chronic Current Visit: No (5) AVM (arteriovenous malformation) of small bowel, acquired Status: Chronic Current Visit: No (6) End-stage renal disease on hemodialysis Status: Acute Current Visit: Yes Hospitalist: Subjective Interval history: Mrs. Betancourt has aortic valve and requires Coumadin anticoagulation. She also has arteriovenous malformations of the upper GI tract with chronic GI blood loss which worsened to an acute GI bleed precipitating this admission. The patient also is a hemodialysis patient 3 times weekly. Exam - Constitutional Vitals: Period Temp Pulse Resp BP Sys/Vargas Pulse Ox Last 24 Hr 96.9 F-98.1 F 83-93 16-20 126-144/67-86 94-100 Exam: Constitutional System: Mild distress. No tremulousness. There is a mild smell of melena in the room Head: Normocephalic, atraumatic. Ears, Nose and Throat System: No evidence of Otitis or Mastoiditis. No epistaxis or discharge Eyes System: Pupils equal, round, and reactive. Extraocular muscles intact. Neck: Supple, without adenopathy, No jugular venous distention. No thyromegaly , neck mass, or prior surgery apparent. Respiratory System: Chest clear to auscultation. Cardiovascular System: Heart with regular rate and rhythm. No murmur. GI System: Abdomen soft, nontender. Normo active bowel sounds present. Musculoskeletal System: limbs with no pedal edema. Full distal pulses. Neurological System: No discernable sensory deficit. No aphasia Psychiatric System: Conversation is rational Results - Labs CBC & BMP: 05/13/17 06:19 05/13/17 06:19 Lab Results: I have reviewed the past 24 hour labs Quality Measures - VTE Contraindication to Pharmacological VTE Prophylaxis: Already on Theraputic Agent , No Prophylaxis Needed Specialty Discharge - Follow Up or Referrals
[2017-05-13] MEDS: WARFARIN 5 MG TABLET PO SCH (17:00)
--- NOTE | 2017-05-13 17:13 | Gastrointestinal Progress Note ---
Assessment and Plan - Time spent with patient Time spent with patient: Greater than 30 minutes (1) GI bleed Problem details: Still with ongoing blood loss. Status: Acute Current Visit : No (2) Other specified counseling Status: Acute Current Visit: No Exam (Progress Note) - Constitutional Vitals: Period Temp Pulse Resp BP Sys/Vargas Pulse Ox Last 24 Hr 96.9 F-98.1 F 83-93 16-20 126-144/67-86 94-100 Results - Labs CBC & BMP: 05/13/17 06:19 05/13/17 06:19 Specialty Discharge - Follow Up or Referrals Note Addendum: PLEASE NOTE -- automatic citation of patient information is unavoidable in this electronic note. I have made a reasonable effort to review the information cited , but it is not a part of my evaluation, impression, or recommendation unless specifically discussed in the dictated text that follows. As well, voice recognition software was used in the creation of this clinical note. Reasonable effort was made to identify and correct gross errors. Despite proofreading, errors in barber tool sharpener may be present, including nonsense verbiage at times. If you encounter such an error, please contact me at for discussion and correction. -- Dejan Chief complaint: melena Subjective: the patient is a 61-year-old female seen for follow-up of upper gastrointestinal bleeding from arteriovenous malformation of the stomach and small bowel. She has not required transfusion. Her blood counts are stable. She is tolerating oral intake. She has no bowel movement documented overnight. Medications: albuterol, Tessalon, Symbicort, Coreg, Questran, sensipar Klonopin , heparin, [place], Humulin, Keppra, Synthroid, Zyprexa, Zofran, Protonix, Ranexa , Requip, Januvia, Restoril, Coumadin Review of Symptoms: 12 point review of symptoms was negative except as noted above Physical examination: Vital Signs: Current vital signs reviewed. General Appearance: well-appearing. Not acutely ill. Head: Normocephalic. Eyes: no scleral icterus. No scleral injection. No conjunctival pallor. Oral Cavity: Odor of breath was normal. No drooling was observed. Lips showed no abnormalities. Lungs: Respiration rhythm and depth was normal. Cardiovascular: Heart rate and rhythm were normal. Abdomen: abdomen was not distended. Abdominal auscultation revealed no abnormalities. Ascites was not discovered. Abdominal palpation revealed no tenderness and no hepatosplenomegaly. Musculoskeletal System: musculoskeletal system was grossly normal. Neurological: level of consciousness was normal. Speech was normal. No coordination/cerebellum abnormalities were noted. Skin: Gen. appearance was normal. Color and pigmentation were normal. No skin lesions were appreciated. Laboratory: hemoglobin 9.4, MCV 95, platelets 120 Radiology: reviewed Impressions: #1. Upper gastrointestinal bleeding -- the patient is stable without overt bleeding at present. But counts are also stable. I recommend continued proton pump inhibitor and continued monitoring with expectation to discharge in the next day or two. #2. Other specified counseling -- Patient seen for greater than 30 minutes. Greater than 50% of this time was spent counseling regarding differential diagnosis, likely diagnosis,, diagnostic and therapeutic options, risks, benefits, and alternatives to procedures and medications, informed consent, and plan of care generally. Patient has expressed understanding and wishes to proceed. Recommendations: -- continue proton pump inhibitor -- continue monitoring blood counts with transfusion as indicated -- continue volume management -- we will continue to follow with you. Dr. Luke will resume G.I. care for this patient tomorrow.
[2017-05-13] MEDS: rOPINIRole 1 MG TABLET PO SCH (20:59)
[2017-05-13] MEDS: TEMAZEPAM 15 MG CAPSULE PO SCH (20:59)
[2017-05-14] MEDS: ONDANSETRON 4 MG/2 ML VIAL IV PRN ×2 (02:07→09:34)
[2017-05-14] MEDS: INSULIN REGULAR 100 UNIT/ML SUBCUT SCH ×2 (08:41→12:09)
--- NOTE | 2017-05-14 08:56 | Gastrointestinal Progress Note ---
Assessment and Plan (1) GI bleed Problem details: Still with ongoing blood loss. Status: Acute Assessment and plan: 05/14-no overt bleeding noted. Recheck H&H today. Continue to monitor. Plan an addendum to followed by Dr. Luke. 05/11-continued dark stools but no bright red noted. H&H 04/08. Total of 5 units of packed red blood cells transfused since admission. INR 1.2. Continue to check serial H&H at this time. Plan an addendum to followed by Dr. Luke. 05/09-No overt bleeding reported. HH 04/05, to receive 2 more units PRBC and transfer to floor. INR at 2. Continue to monitor. Plan and addendum to follow by DR Luke. 05/08-Several day history of melena with c/o nausea and findings of HH of 01/29 with prior history of anemia and multiple GI bleeds and known AVMs in the past with recent endoscopy in February with normal flex sig and EGD. Being transfused at this time. Continue to monitor serial HH. Plan and addendum to follow by DR Luke. Current Visit: No (2) Symptomatic anemia Status: Resolved Current Visit: No Gastroenterology - PN: Subj Interval history: CC: Anemia Patient is seen awake and alert lying in bed. States she had an uneventful night. She denies any overt bleeding at this time. States that she had a normal bowel movement last night was dark brown in color. She denies any abdominal pain. She did have some nausea last night and this morning but denies any vomiting. Abdomen is soft, nontender. She is tolerating her diet at present time with appetite slowly increasing. No repeat labs today however will recheck these. ROS: Denies shortness of breath or chest pain Exam (Progress Note) - Constitutional Vitals: Period Temp Pulse Resp BP Sys/Vargas Pulse Ox Last 24 Hr 96.7 F-97.9 F 82-90 18-22 120-145/59-78 90-100 General appearance: normal weight, no acute distress - Head Head exam: Present: normal inspection, normocephalic - Eye Eye exam: Present: other (Lids and conjunctive are unremarkable). Absent: scleral icterus - ENT ENT exam: Present: normal exam, normal oropharynx - Neck Neck exam: Present: normal inspection - Respiratory Respiratory exam: Present: clear to auscultation bilaterally. Absent: rales, rhonchi, wheezes - Cardiovascular Cardiovascular exam: Present: regular rate and rhythm. Absent: diastolic murmur , JVD, systolic murmur - GI/Abdominal GI/Abdominal exam: Present: normal bowel sounds, soft. Absent: ascites, distended, mass, organomegaly, tenderness - Extremities Exam Extremities exam: Present: normal inspection, full ROM - Back Exam Back exam: Present: normal inspection - Neurological Exam Neurological exam: Present: alert, oriented X3 - Psychiatric Psychiatric exam: Present: normal affect, normal mood - Skin Skin exam: Present: normal color, warm, dry Results - Labs CBC & BMP: 05/13/17 06:19 05/13/17 06:19 Lab Results: I have reviewed the past 24 hour labs Specialty Discharge - Follow Up or Referrals
[2017-05-14] MEDS: RANOLAZINE 500 MG TABLET PO SCH (09:35)
[2017-05-14] MEDS: clonazePAM 0.5 MG TABLET PO SCH ×2 (09:35→16:21)
[2017-05-14] MEDS: OLANZapine 2.5 MG TABLET PO SCH (09:35)
[2017-05-14] MEDS: BENZONATATE 100 MG CAPSULE PO PRN (09:35)
[2017-05-14] MEDS: PANTOPRAZOLE 40 MG TABLET PO SCH (09:35)
[2017-05-14] MEDS: sitaGLIPtin 25 MG TABLET PO SCH (09:35)
[2017-05-14] MEDS: CINACALCET 30 MG TABLET PO SCH (09:35)
[2017-05-14] MEDS: levETIRAcetam 500 MG TABLET PO SCH (09:35)
[2017-05-14] MEDS: LEVOTHYROXINE 100 MCG TABLET PO SCH (09:35)
[2017-05-14] MEDS: CARVEDILOL 3.125 MG TABLET PO SCH (09:36)
--- NOTE | 2017-05-14 09:55 | Nephrology Progress Note ---
Nephrology - PN: Subj Interval history: Pt had some nausea overnight. Stools normal color but loose today. Hct improved and stable. Exam (PN)-Nephrology - Vital Signs Vital signs: Period Temp Pulse Resp BP Sys/Vargas Pulse Ox Last 24 Hr 96.7 F-97.9 F 82-90 18-22 120-145/59-78 90-100 - General Appearance General appearance: well-developed, chronically ill EENT: ATNC, PERRL, hearing intact, vision intact Neck: no JVD, no thyromegaly Respiratory: no kyphosis, clear Cardiology: no murmurs, no rub, edema Gastrointestinal: normoactive bowel sounds, no tenderness Integumentary: no rash, warm and dry Neurologic: no focal deficit, no asterixis, alert and oriented x3 Musculoskeletal: no deformities, no erythema Psychiatric: mood/affect appropriate, cooperative - Lab 05/13/17 06:19 05/13/17 06:19 Most recent lab results Calcium 9.9 MG/DL (8.5-10.1) 05/13/17 06:19 Magnesium 2.0 MG/DL (1.8-2.4) 05/13/17 06:19 Assessment and Plan (1) End-stage renal disease on hemodialysis Problem details: Next scheduled routine CHD tomorrow. Status: Chronic Assessment and plan: Challenge EDW tomorrow. Current Visit: No (2) GI bleed Problem details: Still with ongoing blood loss. Status: Acute Current Visit : No (3) Hx of mechanical aortic valve replacement Status: Chronic Current Visit: No (4) Hyperkalemia Problem details: Non urgent therapy. Status: Acute Assessment and plan: Resolved. Low K/PO4 diet when taking po. Current Visit: Yes (5) History of mitral valve replacement with mechanical valve Status: Chronic Current Visit: No (6) Pulmonary hypertension Status: Chronic Current Visit: No Specialty Discharge - Follow Up or Referrals
[2017-05-14] MEDS: BUDESONIDE/FORMOTEROL 160-4.5 INHALER 6 GM INH SCH (10:00)
[2017-05-14 10:10] LABS: Hemoglobin 9.3 GM/DL (12.0-16.0)
--- NOTE | 2017-05-14 10:13 | Discharge Summary ---
<Carlos Reddy - Last Filed: 05/14/17 10:11> Hospital Course - Hospital Course Hospital Course: Ms. Betancourt is a 61 year old white female with history of end-stage renal disease on HD, CAD, hypertension, mechanical AVR and MVR, depression, vertigo, peripheral neuropathy, diabetes, fibromyalgia, asthma/COPD, and history of multiple GI bleeds who presented to the ED on 05/08/2017 with a several day history of worsening weakness and dizziness and 1 day history of black tarry stools. Patient had just been discharged on 05/02/2017 after being hospitalized for pneumonia and excessive prolongation of her INR requiring readjustment. At the time of admission, her H&H was 5/15 and her potassium was 6.8. She normally dialyzes on Sunday. Patient had a central line placed by IR due to difficult sticks. Chest x-ray showed worsening congestive heart failure with a focal infiltrate at the right lung base. GI and Nephrology were consulted to assist with management of this patient. Patient was given 3 units of PRBCs overnight with hematocrit rising to 20% on . GI planned for EGD once INR was in the 1.6 range. Coumadin was held. By 05/10/2017, INR was down to 2.0 from 3.4 on admission. GI proceeded with the esophagogastroduodenoscopy with small bowel enteroscopy and heated probe coagulation of duodenal vascular malformations. 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 GI recommends advancing diet and continue observation with serial hemoglobins. The patient was also transfused with an additional 2 units of PRBCs. H&H continued to improve. Coumadin was restarted on 05/11/2017 with continued INR monitoring. The remainder of her hospital course was relatively uncomplicated. At the time of discharge, H&H is 9.4 and 28.4. Potassium is down to 4.8. She continued to receive hemodialysis throughout her stay here. Creatinine is 4.20 and BUN is 35. At this time, patient has reached maximum benefit from hospitalization and is stable for discharge. She will be discharged home with follow-up from PCP as well as continued outpatient hemodialysis. Follow-up with GI as indicated. - Time spent with patient Time with patient DS: Greater than 30 minutes Specialty Discharge - Follow Up or Referrals Discharge Plan - Discharge Data Disposition: Disch To Home/Self Care - Discharge Medications New Warfarin [Coumadin] 5 mg PO DAILY@1800 #20 tablet levETIRAcetam TAB [Keppra Tab] 500 mg PO BID tablet Continue OLANZapine [Olanzapine] 2.5 mg PO BID Ranolazine [Ranexa] 1,000 mg PO BID Montelukast Tab [Singulair Tab] 10 mg PO BEDTIME Temazepam [Restoril] 15 mg PO BEDTIME Pantoprazole Tab [Protonix Tab] 40 mg PO BID HYDROcodone/ACETAMIN 10-325 [[place] 10-325] 10 mg PO TID Cyclobenzaprine [Flexeril] 10 mg PO TID amLODIPine [Norvasc] 5 mg PO DAILY tablet Carvedilol [Coreg] 3.125 mg PO BID #0 tablet Levothyroxine Tab [Synthroid Tab] 100 mcg PO DAILY Benzonatate [Tessalon] 100 mg PO TID PRN PRN Reason: Cough Promethazine HCl 50 mg PO Q4-6H PRN PRN Reason: Nausea Cholestyramine/Aspartame [Cholestyramine Light Packet] 4 gm PO QOTHER DAY PRN PRN Reason: cholesterol Calcium Acetate [Phoslo] 1,334 mg PO QID clonazePAM [Clonazepam] 1 mg PO TID Budesonide/Formoterol 160-4.5 [Symbicort 160-4.5] 2 puffs INH BID Pravastatin [Pravachol] 20 mg PO BEDTIME Linagliptin [Tradjenta] 5 mg PO DAILY Cinacalcet [Sensipar] 60 mg PO DAILY Discontinued Aspirin EC Tab 81 mg PO DAILY Warfarin [Coumadin] 7.5 mg PO DAILY@1800 tablet levETIRAcetam [Levetiracetam] 500 mg PO BID No Action rOPINIRole [Requip] 1 mg PO BEDTIME - Follow Up or Referral - Forms/Instructions Instructions: Gastrointestinal Bleeding (DC), Anemia (DC), End-Stage Kidney Disease (DC) Exam - Constitutional Vitals: Period Temp Pulse Resp BP Sys/Vargas Pulse Ox Last 24 Hr 96.4 F-97.9 F 82-90 18-22 120-152/59-77 90-100 Discharge Results Procedures and tests throughout hospitalization: Pending Orders 05/15/17 04:00 HH [Hemoglobin and Hematocrit] IN AM Labs on day of discharge: Labs from last 24 hours 05/14/17 05/14/17 05/13/17 11:46 10:05 19:00 Hgb 9.3 L Hct 28.0 L POC Glucose 116 H 132 H Blood Type Antibody Screen Crossmatch 05/13/17 05/12/17 16:44 08:57 Hgb Hct POC Glucose 144 H Blood Type A POSITIVE Antibody Screen Negative Crossmatch See Detail DS: Provider Date of admission: 05/08/17 10:26 Primary care physician: . No PCP Attending physician on admission: Oskar Madsen MD Consults: 05/08/17 10:52 Consult to Physician [CONS] Routine Comment: gib Consulting Provider: Darion Luke Consulting Provider Notified: Yes When should Consulting Provider be notified: Now Consult to Specialist Group: Gastroenterology Person Notified: emilia Date Notified: 05/08/17 Time Notified: 11:15 05/08/17 11:09 Consult to Physician [CONS] Routine Comment: ESRD needs dialysis Consulting Provider: Jabier López Consulting Provider Notified: Yes Consult to Specialist Group: Nephrology Person Notified: [place] Date Notified: 05/08/17 Time Notified: 11:25 05/08/17 11:31 Consult to Pastoral Services [CONS] Routine Comment: Pastoral Screen: Request Algologist Visit Pastoral Screen Source of Request: Patient 05/11/17 14:10 Consult to Pastoral Services [CONS] Routine Comment: Pastoral Screen: Request Algologist Visit Pastoral Screen Source of Request: Patient Discharging clinician: Carlos ALVES Expected date of discharge: 05/14/17 <Leti Burden - Last Filed: 05/14/17 14:11> Hospital Course - Time spent with patient Time with patient DS: Greater than 30 minutes (Time spent greater than 35mins) Diagnosis - Discharge Diagnosis (1) GI bleed Status: Acute (2) Symptomatic anemia Status: Resolved (3) Hx of mechanical aortic valve replacement Status: Chronic (4) End-stage renal disease on hemodialysis Status: Chronic Discharge Plan - Discharge Data Condition at Discharge: Stable Discharge Diet: heart healthy Activity: resume usual activities as tolerated - Forms/Instructions Additional Discharge Instructions: Follow with PCP in 1week, follow with Cardiology, GI, and Nephrology as scheduled. INR check in 3days. Exam - Constitutional General appearance: no acute distress - Head Head exam: Present: normal inspection - Eye Eye exam: Present: EOMI - Respiratory Respiratory exam: Present: clear to auscultation bilaterally - Cardiovascular Cardiovascular exam: Present: regular rate and rhythm - GI/Abdominal GI/Abdominal exam: Present: normal bowel sounds - Extremities Exam Extremities exam: Present: normal inspection - Neurological Exam Neurological exam: Present: alert, oriented X3
[2017-05-14 12:33] VITALS: BP 152/75
== END 2017-05-14 15:00 | disposition home health service (06) | DRG 356 ==
LOC: EDUNIT# → EDBD → N.ED 06:26 → N.EDINP 10:26 → SUATTDRO 10:26 → N.ICU 10:50 → N.5E 05-09 14:36
PROVIDERS: ADMIT Internal Medicine; ATTEND Internal Medicine

== ENCOUNTER 2017-06-24 21:33 | Inpatient (IN) ==
--- NOTE | 2017-06-24 23:16 | Emergency Department Note ---
IHusam Brittany, am scribing for, and in the presence of, Esther Whitten DO 22: 55. IFish Debra, DO, personally performed the services described in this documentation, ascribed by Mary Jane Weiner in my presence, and it is both accurate and complete . Arrival - Arrival Chief Complaint: Non-Specific Stated Complaint: THROAT AND WEAK ED Nursing Triage Note: AMB TO TRIAGE WITH COMPLAINT OF NON PRODUCTIVE COUGH SINCE LAST SUNDAY. WAS SEEN BY PCP AND GIVEN TESSALON PERRLES BUT IS OUT NOW. STATES HAS BEEN COUGHING SO MUCH HER THROAT IS BLEEDING. ALSO STATES THAT SHE IS HAVING LIGHT RECTAL BLEEDING THAT STARTED 4 DAYS AGO AND 3 DAYS AGO WATERY DIARRHEA. PATIENT GETS REGULAR BLOOD TRANSFUSIONS AND STATES SHE IS WEAK AND CAN TELL IS IS TIME FOR ANOTHER TRANSFUSION. Mode of Arrival: Ambulatory Limitations: No Limitations Source: Patient - History of Present Illness HPI Narrative: This is a 61 y/o white female, who presents to the ED with c/o cough which started 1.5 weeks ago. She notes she was seen by her PCP and was given Tessalon Perrles. She notes she is now out of the medications. She notes she has been coughing excessively, so bad her throat is bleeding. She notes mild rectal bleeding as well. She reports the rectal bleeding started 4 days ago[address] Pt states Dr. Luke is her GI Doctor. Pt has no other complaints/pain in the ED at this time. PT has a PMhx of CAD, HTN, valvular heart disease, cardiovascular problems, anxiety, depression, vertigo, cardiac dysrhythmia, peripheral neuropathy, seizures, IDDM, fibromyalgia, dyslipidemia, asthma, COPD, dialysis, renal failure, GI bleed, HEP B, GERD, back/neck problems, anemia, and high INR. Pt has had a cardiac cath (no stents were placed), mechanical MVR and AVR, abdominal surgery, T&A, cholecystectomy, gynecological surgery, and hysterectomy. PT has a family medical Hx of breast and ovarian cancers, heart disease, HTN, diabetes, and stroke. PT is a former smoker. Onset (ago): week(s) (Started 1.5) Allergies/Adverse Reactions: Allergies Allergy/AdvReac Type Severity Reaction Status Date / Time Iodinated Contrast Media - Allergy RASH Verified 06/24/17 22:16 Oral and [Iodinated Contrast Media - IV Dye] Penicillins Allergy ANAPHYLAXIS Verified 06/24/17 22:16 aspirin AdvReac Nausea Verified 06/24/17 22:16 cephalexin [From Keflex] AdvReac Vomiting Verified 06/24/17 22:16 Sulfa (Sulfonamide AdvReac Vomiting Verified 06/24/17 22:16 Antibiotics) Home Medications: Home Medications Medication Instructions Recorded Confirmed Type Budesonide/Formoterol 160-4.5 2 puffs INH BID 03/03/17 06/24/17 History [Symbicort 160-4.5] Cyclobenzaprine [Flexeril] 10 mg PO TID 03/03/17 06/24/17 History Montelukast Tab [Singulair Tab] 10 mg PO BEDTIME 03/03/17 06/24/17 History OLANZapine [Olanzapine] 2.5 mg PO BID 03/03/17 06/24/17 History Pantoprazole Tab [Protonix Tab] 40 mg PO BID 03/03/17 06/24/17 History Pravastatin [Pravachol] 20 mg PO BEDTIME 03/03/17 06/24/17 History Ranolazine [Ranexa] 1,000 mg PO BID 03/03/17 06/24/17 History Temazepam [Restoril] 15 mg PO BEDTIME 03/03/17 06/24/17 History amLODIPine [Norvasc] 5 mg PO DAILY tablet 03/10/17 06/24/17 Rx Carvedilol [Coreg] 3.125 mg PO BID #0 tablet 04/04/17 06/24/17 Rx Benzonatate [Tessalon] 100 mg PO TID PRN 04/24/17 06/24/17 History Calcium Acetate [Phoslo] 1,334 mg PO QID 04/24/17 06/24/17 History Cinacalcet [Sensipar] 60 mg PO DAILY 04/24/17 06/24/17 History Levothyroxine Tab [Synthroid Tab] 100 mcg PO DAILY 04/24/17 06/24/17 History Linagliptin [Tradjenta] 5 mg PO DAILY 04/24/17 06/24/17 History Promethazine HCl 50 mg PO Q4-6H PRN 04/24/17 06/24/17 History rOPINIRole [Requip] 1 mg PO BEDTIME 04/24/17 06/24/17 History clonazePAM [Clonazepam] 1 mg PO TID 05/08/17 06/24/17 History levETIRAcetam TAB [Keppra Tab] 500 mg PO BID tablet 05/14/17 06/24/17 Rx Aspirin EC Tab 81 mg PO DAILY 06/24/17 06/24/17 History Warfarin [Coumadin] 5 mg PO WE 06/24/17 06/24/17 History Warfarin [Coumadin] 7.5 mg PO SUMOTUTHFRSA 06/24/17 06/24/17 History Review of System - Review of System 12 point system: reviewed and no additional remarkable complaints except as stated - Review of System Respiratory: Present: cough (Coughing so bad her throat is bleeding ) Gastrointestinal: Present: other (Rectal bleeding ) Medical,Surgical,& Family Hx - Medical History Cardio: History of: Cardiac Dysrhythmia, CAD (CABG x 3 (November 2016)), Hypertension, Valvular Heart Disease (mechanical AVR & MVR), Cardiovascular Problems (impression recent aortic issue.) Psychological: History of: Anxiety Disorders, Depression Neurology: History of: Peripheral Neuropathy (FEET/TOES), Seizures (Last seizure 3 months ago), Vertigo No history of: Dementia Endocrine: History of: Diabetes Mellitus (IDDM), Dyslipidemia Rheumatology: History of;: Fibromyalgia Respiratory: History of: Asthma, COPD Renal: History of: Dialysis, Renal Failure (ESRD) Gastrointestinal: History of: GERD, Gastrointestinal Bleed, Hepatitis (HEP B) Musculoskeletal: History of: Back/Neck Problems Hematology: History of: Anemia, Bleeding Problems (high inr), Clotting Problems (pt states she had a clot "three or four years ago") No history of: Blood Transfusion Reaction Other: History of: Miscellaneous Medical Problems (Sinus surgery) No history of: Anesthesia Reactions - Surgical History Cardiac Surgeries: Sugical HX of: Cardiac Catheterization (NO STENTS PLACE), Cardiac Surgery (mechanical MVR and AVR) Thoracic Surgeries: Patient denies;: Organ Transplant HEENT Surgeries: Surgical HX of: Tonsilectomy & Adenoidectomy Abdominal Surgeries: Surgical HX of: Abdominal Surgery (COLON REMOVED), Cholecystectomy Reproductive Surgeries: Surgical HX of;: Gynecologic Surgery, Hysterectomy - Family History Family History: Reports;: Family Cancer (mother ovarian, sister breast), Family Diabetes (mother), Family Heart Disease (mother -MA), Family Hypertension ( mother), Family Stroke (mother and brother) - Social History Smoking Status: Former smoker Frequency of Alcohol Use: None Type of Drug Use: None Exam Vital Signs: Vital Signs Temperature 97.3 F L 06/24/17 22:10 Pulse Rate 98 H 06/24/17 22:10 Respiratory Rate 18 06/24/17 22:40 Blood Pressure 141/69 06/24/17 22:10 O2 Sat by Pulse Oximetry 98 06/24/17 22:10 - General General appearance: alert, in no apparent distress - Head Head exam: Present: normocephalic, normal inspection - Eye Eye exam: Present: PERRL, EOMI. Absent: nystagmus, miosis, mydriasis - ENT ENT exam: Present: mucous membranes moist - Neck Neck exam: Present: full ROM, trachea midline. Absent: tenderness - Chest Chest inspection: Present: symmetric chest wall rise. Absent: tenderness - Respiratory Respiratory exam: Present: normal lung sounds bilaterally. Absent: respiratory distress - Cardiovascular Cardiovascular exam: Present: regular rate, normal rhythm, normal heart sounds. Absent: murmur, rubs, gallop, clicks, JVD - Abdominal Exam Abdominal exam: Present: soft, normal bowel sounds, other (Multiple scars consient with prior surgeries). Absent: tenderness - Rectal Exam Rectal exam: Present: deferred - Extremities Exam Extremities exam: Present: full ROM, normal capillary refill, other (Dialysis ports noted to bilateral arms). Absent: tenderness, pedal edema - Back Exam Back exam: Present: normal inspection, full ROM. Absent: tenderness, muscle spasm, rashes - Neurological Exam Neurological exam: Present: alert, oriented X3, CN II-XII intact. Absent: motor sensory deficit - Psychiatric Psychiatric exam: Present: normal affect, normal mood. Absent: depressed, agitated, anxious, flat affect, manic - Skin Skin exam: Present: warm, dry, intact, normal color. Absent: rash, cyanosis, diaphoresis, erythema, pallor, mottled Course Course Narrative: spoke with hospitalist who will admit pt. Results - Labs CBC & BMP: 06/24/17 23:15 06/24/17 23:15 Lab Results: I have reviewed the patients labs Labs: Laboratory Tests 10/08/17 10/08/17 23:15 23:15 WBC 5.7 RBC 1.98 L Hgb 6.6 L Hct 19.9 L MCV 100.5 MCH 34 MCHC 33.7 RDW 20.7 H Plt Count 106 L MPV 11.0 Neut % (Auto) 74.7 H Lymph % (Auto) 16.8 L [place] % (Auto) 5.6 Eos % (Auto) 1.9 Baso % (Auto) 0.5 Neut # (Auto) 4.3 Lymph # (Auto) 1.0 L [place] # (Auto) 0.3 Eos # (Auto) 0.1 Baso # (Auto) 0.0 Immature Gran % 0.5 Nucleated RBC % 0.0 Immature Gran # 0.03 Nucleated RBCs # 0.00 Immature Plt Fraction 2.7 INR 2.5 PT Patient/Control Mix 25.2 D Circ Anticoag PTT 24.7 D Disposition Clinical Impression: Anemia Case discussed with: patient Disposition: Still a Patient Condition: Stable Time of Disposition: 01:06
[2017-06-24 23:27] LABS: Basophils % 0.5 % (0.0-0.8); Eosinophils # 0.1 10*3/uL (0.0-0.87); Eosinophils % 1.9 % (0.00-10.9); Immature Granulocytes % 0.5 %; Immature Granulocytes Absolute 0.03 #; Lymphocytes % 16.8 % (21.3-54.2); Mean Corpuscular HGB Conc 33.7 GM/DL (32-36); Mean Corpuscular Hemoglobin 34 PG (27-34); Mean Corpuscular Volume 100.5 FL (87-102); Monocytes # 0.3 10*3/uL (0.11-0.8); Monocytes % 5.6 % (1.7-12.7); Neutrophils # 4.3 10*3/uL (1.4-7.4); Neutrophils % 74.7 % (38.7-73.9); Red Blood Count 1.98 MC/CUMM (3.8-5.5); Red Cell Distribution Width 20.7 % (9.3-17.3); White Blood Count 5.7 T/CUMM (4-12)
[2017-06-24 23:36] LABS: Platelet Count 106 T/CUMM (130-400)
[2017-06-24 23:37] LABS: Hematocrit 19.9 VOL% (35.7-47.0); Hemoglobin 6.6 GM/DL (12.0-16.0)
[2017-06-24 23:39] LABS: INR 2.5; PT Patient Result 25.2 SECS; Partial Thromboplastin Time 24.7 SECS (0-40)
[2017-06-24 23:51] LABS: Albumin 3.5 G/DL (3.4-5.0); Bilirubin,Total 1.3 MG/DL (0.2-1.0); Calcium 9.3 MG/DL (8.5-10.1); Osmolality,Calculated 279.4 MOS/KG (273-304); Potassium 5.6 MMOL/L (3.5-5.1); Total Protein 7.3 G/DL (6.4-8.3)
[2017-06-25] MEDS ORDERED: ACETAMINOPHEN 325 MG TABLET PO PRN (00:58)
[2017-06-25] MEDS ORDERED: PROMETHAZINE 25 MG/1 ML VIAL IM PRN (00:58)
[2017-06-25] MEDS ORDERED: SODIUM CHLORIDE 0.9% 250 ML IV PRN (01:09)
[2017-06-25] MEDS ORDERED: BENZONATATE 100 MG CAPSULE PO PRN (01:11)
--- NOTE | 2017-06-25 01:19 | Hospitalist History & Physical ---
Assessment and Plan (1) Anemia Status: Acute Current Visit: Yes (2) Diabetes Status: Acute Current Visit: No (3) Hyperkalemia Problem details: HD today. Dietary education. Status: Acute Current Visit: No (4) Lower GI bleed Status: Acute Current Visit: No (5) AVM (arteriovenous malformation) of small bowel, acquired Status: Chronic Current Visit: No (6) Chronic anticoagulation Status: Chronic Current Visit: No (7) ESRD on dialysis Problem details: Dialysis Sunday Status: Chronic Current Visit: No (8) History of mitral valve replacement with mechanical valve Status: Chronic Current Visit: No (9) Hx of mechanical aortic valve replacement Status: Chronic Assessment and plan: Our plan for this patient will be admitting her to our service. She will be placed on monitored bed. Will continue home meds as appropriate. Patient has mechanical heart valves INR is 2.5. Repeat check INR in the morning continue Coumadin for now. Recommend that she be transfused 2 units of packed red blood cells with dialysis. We will consult both GI and nephrology for their evaluation and input. Patient is currently stable and I feel comfortable with her being placed on a monitored bed on the floor. Current Visit: No History of Present Illness Chief complaint: Spitting up blood and bloody bowel movement History of present illness: Ms. Betancourt is a 61 year old female with past medical history significant for AVM malformations, frequent transfusions, mechanical heart valves, and end-stage renal disease who was in her normal state of health until the past couple of days. Patient reports scratching her throat. She says she has been spitting up blood 2 days. She had some blood in her bowel movement today. Patient is very vague about her past medical history but I do see that she has a history of AVMs. She has received a lot of blood transfusions. Patient cannot relate why she sees Dr. Luke but she sees him for this problem. Patient came up to the hospital for further evaluation. Patient was found to be anemic in the ER physician recommended blood transfusion. It was my recommendation that patient be transfused during dialysis since her vital signs are stable. Home Medications Medication Instructions Recorded Confirmed Type Budesonide/Formoterol 160-4.5 2 puffs INH BID 03/03/17 06/24/17 History [Symbicort 160-4.5] Cyclobenzaprine [Flexeril] 10 mg PO TID 03/03/17 06/24/17 History Montelukast Tab [Singulair Tab] 10 mg PO BEDTIME 03/03/17 06/24/17 History OLANZapine [Olanzapine] 2.5 mg PO BID 03/03/17 06/24/17 History Pantoprazole Tab [Protonix Tab] 40 mg PO BID 03/03/17 06/24/17 History Pravastatin [Pravachol] 20 mg PO BEDTIME 03/03/17 06/24/17 History Ranolazine [Ranexa] 1,000 mg PO BID 03/03/17 06/24/17 History Temazepam [Restoril] 15 mg PO BEDTIME 03/03/17 06/24/17 History amLODIPine [Norvasc] 5 mg PO DAILY tablet 03/10/17 06/24/17 Rx Carvedilol [Coreg] 3.125 mg PO BID #0 tablet 04/04/17 06/24/17 Rx Benzonatate [Tessalon] 100 mg PO TID PRN 04/24/17 06/24/17 History Calcium Acetate [Phoslo] 1,334 mg PO QID 04/24/17 06/24/17 History Cinacalcet [Sensipar] 60 mg PO DAILY 04/24/17 06/24/17 History Levothyroxine Tab [Synthroid Tab] 100 mcg PO DAILY 04/24/17 06/24/17 History Linagliptin [Tradjenta] 5 mg PO DAILY 04/24/17 06/24/17 History Promethazine HCl 50 mg PO Q4-6H PRN 04/24/17 06/24/17 History rOPINIRole [Requip] 1 mg PO BEDTIME 04/24/17 06/24/17 History clonazePAM [Clonazepam] 1 mg PO TID 05/08/17 06/24/17 History levETIRAcetam TAB [Keppra Tab] 500 mg PO BID tablet 05/14/17 06/24/17 Rx Aspirin EC Tab 81 mg PO DAILY 06/24/17 06/24/17 History Warfarin [Coumadin] 5 mg PO WE 06/24/17 06/24/17 History Warfarin [Coumadin] 7.5 mg PO SUMOTUTHFRSA 06/24/17 06/24/17 History Allergies Allergy/AdvReac Type Severity Reaction Status Date / Time Iodinated Contrast Media - Allergy RASH Verified 06/24/17 22:16 Oral and [Iodinated Contrast Media - IV Dye] Penicillins Allergy ANAPHYLAXIS Verified 06/24/17 22:16 aspirin AdvReac Nausea Verified 06/24/17 22:16 cephalexin [From Keflex] AdvReac Vomiting Verified 06/24/17 22:16 Sulfa (Sulfonamide AdvReac Vomiting Verified 06/24/17 22:16 Antibiotics) Medical,Surgical,& Family Hx - Medical History Cardio: History of: Cardiac Dysrhythmia, CAD (CABG x 3 (November 2016)), Hypertension, Valvular Heart Disease (mechanical AVR & MVR), Cardiovascular Problems (impression recent aortic issue.) Psychological: History of: Anxiety Disorders, Depression Neurology: History of: Peripheral Neuropathy (FEET/TOES), Seizures (Last seizure 3 months ago), Vertigo No history of: Dementia Endocrine: History of: Diabetes Mellitus (IDDM), Dyslipidemia Rheumatology: History of;: Fibromyalgia Respiratory: History of: Asthma, COPD Renal: History of: Dialysis, Renal Failure (ESRD) Gastrointestinal: History of: GERD, Gastrointestinal Bleed, Hepatitis (HEP B) Musculoskeletal: History of: Back/Neck Problems Hematology: History of: Anemia, Bleeding Problems (high inr), Clotting Problems (pt states she had a clot "three or four years ago") No history of: Blood Transfusion Reaction Other: History of: Miscellaneous Medical Problems (Sinus surgery) No history of: Anesthesia Reactions - Surgical History Cardiac Surgeries: Sugical HX of: Cardiac Catheterization (NO STENTS PLACE), Cardiac Surgery (mechanical MVR and AVR) Thoracic Surgeries: Patient denies;: Organ Transplant HEENT Surgeries: Surgical HX of: Tonsilectomy & Adenoidectomy Abdominal Surgeries: Surgical HX of: Abdominal Surgery (COLON REMOVED), Cholecystectomy Reproductive Surgeries: Surgical HX of;: Gynecologic Surgery, Hysterectomy - Family History Family History: Reports;: Family Cancer (mother ovarian, sister breast), Family Diabetes (mother), Family Heart Disease (mother -[place]), Family Hypertension ( mother), Family Stroke (mother and brother) - Social History Smoking Status: Former smoker Frequency of Alcohol Use: None Type of Drug Use: None 12 point system: reviewed and no additional remarkable complaints except as stated Exam - Constitutional Vitals: Period Temp Pulse Resp BP Sys/Vargas Pulse Ox Last 24 Hr 97.3 F-97.3 F 98-98 18-20 141-141/69-69 98 - General General appearance: alert, in no apparent distress - Head Head exam: Present: normocephalic, normal inspection - Eye Eye exam: Present: PERRL, EOMI. - ENT ENT exam: Present: mucous membranes moist - Neck Neck exam: Present: full ROM, trachea midline. Absent: tenderness - Chest Chest inspection: Present: symmetric chest wall rise. Absent: tenderness - Respiratory Respiratory exam: Present: normal lung sounds bilaterally. Absent: respiratory distress - Cardiovascular Cardiovascular exam: Present: regular rate, normal rhythm, mechanical heart valves murmurs are appreciated - Abdominal Exam Abdominal exam: Present: soft, normal bowel sounds - Rectal Exam Rectal exam: Present: deferred - Extremities Exam Extremities exam: Present: full ROM, normal capillary refill, other (Dialysis ports noted to bilateral arms). - Back Exam Back exam: Present: normal inspection, full ROM. Absent: tenderness, muscle spasm, rashes - Neurological Exam Neurological exam: Present: alert, oriented X3, CN II-XII intact. Absent: motor sensory deficit - Psychiatric Psychiatric exam: Present: normal affect, normal mood. - Skin Skin exam: Present: warm, dry, intact, normal color. Results - Labs CBC & BMP: 06/24/17 23:15 06/24/17 23:15
[2017-06-25] MEDS ORDERED: GLUCAGON 1 MG VIAL IM PRN (01:55)
[2017-06-25] MEDS ORDERED: DEXTROSE 50% 25 GM/50 ML VIAL IV PRN (01:55)
[2017-06-25] MEDS ORDERED: CALCIUM ACETATE 667 MG CAPSULE PO SCH (02:00)
[2017-06-25] MEDS: LEVOTHYROXINE 100 MCG TABLET PO SCH (06:42)
[2017-06-25] MEDS: INSULIN REGULAR 100 UNIT/ML SUBCUT SCH ×3 (08:25→16:22)
[2017-06-25 08:32] LABS: Basophils % 0.5 % (0.0-0.8); Eosinophils # 0.1 10*3/uL (0.0-0.87); Eosinophils % 1.9 % (0.00-10.9); Hemoglobin 7.9 GM/DL (12.0-16.0); Immature Granulocytes % 0.8 %; Immature Granulocytes Absolute 0.05 #; Lymphocytes # 0.7 10*3/uL (1.4-4.0); Lymphocytes % 11.5 % (21.3-54.2); Mean Corpuscular HGB Conc 32.9 GM/DL (32-36); Mean Corpuscular Hemoglobin 34 PG (27-34); Mean Corpuscular Volume 102.1 FL (87-102); Mean Platelet Volume 9.8 FL (9.6-12.0); Monocytes # 0.4 10*3/uL (0.11-0.8); Monocytes % 5.6 % (1.7-12.7); Neutrophils # 5.2 10*3/uL (1.4-7.4); Neutrophils % 79.7 % (38.7-73.9); Platelet Count 164 T/CUMM (130-400); Red Blood Count 2.35 MC/CUMM (3.8-5.5); Red Cell Distribution Width 20.7 % (9.3-17.3); White Blood Count 6.5 T/CUMM (4-12)
[2017-06-25 08:41] LABS: INR 2.2
[2017-06-25 08:58] LABS: Calcium 9.5 MG/DL (8.5-10.1); Osmolality,Calculated 282.2 MOS/KG (273-304); Potassium 5.6 MMOL/L (3.5-5.1)
[2017-06-25] MEDS ORDERED: sitaGLIPtin 25 MG TABLET PO SCH (09:00)
--- NOTE | 2017-06-25 09:50 | Gastrointestinal Consult Note ---
Assessment and Plan (1) Symptomatic anemia Status: Resolved Assessment and plan: 06/25-Reports of "spitting up blood" and weakness with hx of anemia, multiple GI bleeds and blood transfusions as well as hx of AVMs in the past. HH noted as below. For dialysis on tomorrow and tentative transfusion at that time. No overt bleeding. Prior endoscopy noted as below. Plan and addendum to follow by Dr Luke. Current Visit: No History of Present Illness Chief complaint: Anemia, questionable hematemesis History of present illness: Ms. Betancourt is a 61 year old female who was admitted to the hospital last night with reports of spitting up blood and weakness. Patient has a prior history of end-stage renal disease with dialysis TTSa, CAD, hypertension, mechanical AVR and MVR, DM, COPD, multiple GI bleeds. Patient states she was in her usual state of health until several days ago when she had onset of a sore throat. She states she also noticed that she was weaker than usual. Over the last couple days, patient states that she has noted that when she would clear her throat she would have blood-tinged sputum. She denies any episodes of actual vomiting or any epigastric pain at this time. She states that she has been rather weak as well and felt like it was possibly time for another blood transfusion. She is on chronic anticoagulation with Coumadin due to history of AVR and MVR valve replacements. She also was noted to have history of small bowel AVMs and has required frequent blood transfusions in the past with 18 units of blood given since January of this year. Patient is denying any dysphagia, dyspepsia, or increased GERD symptoms. She is denying to me any melena or hematochezia. Her INR on admission was noted 2.5 and H&H is 6.6/19.9. Her discharge H&H in April was noted 06/14. BUN/creatinine ratio is at 7. Her last endoscopy was noted in April with EGD with findings of duodenal vascular malformations with active oozing treated with a heater probe as well as gastric vascular malformations which were also coagulated. She also is noted to have a flex sigmoidoscopy in February of this year with normal findings. Small bowel pill camera endoscopy was also done at that time with reported findings of AVMs. She denies any recent weight loss associated with this. HH is improved today at 7.9/ 24 and has not been transfused since this admission at this time. Home Medications Medication Instructions Recorded Confirmed Type Budesonide/Formoterol 160-4.5 2 puffs INH BID 03/03/17 06/24/17 History [Symbicort 160-4.5] Cyclobenzaprine [Flexeril] 10 mg PO TID 03/03/17 06/24/17 History Montelukast Tab [Singulair Tab] 10 mg PO BEDTIME 03/03/17 06/24/17 History OLANZapine [Olanzapine] 2.5 mg PO BID 03/03/17 06/24/17 History Pantoprazole Tab [Protonix Tab] 40 mg PO BID 03/03/17 06/24/17 History Pravastatin [Pravachol] 20 mg PO BEDTIME 03/03/17 06/24/17 History Ranolazine [Ranexa] 1,000 mg PO BID 03/03/17 06/24/17 History Temazepam [Restoril] 15 mg PO BEDTIME 03/03/17 06/24/17 History amLODIPine [Norvasc] 5 mg PO DAILY tablet 03/10/17 06/24/17 Rx Carvedilol [Coreg] 3.125 mg PO BID #0 tablet 04/04/17 06/24/17 Rx Benzonatate [Tessalon] 100 mg PO TID PRN 04/24/17 06/24/17 History Calcium Acetate [Phoslo] 1,334 mg PO QID 04/24/17 06/24/17 History Cinacalcet [Sensipar] 60 mg PO DAILY 04/24/17 06/24/17 History Levothyroxine Tab [Synthroid Tab] 100 mcg PO DAILY 04/24/17 06/24/17 History Linagliptin [Tradjenta] 5 mg PO DAILY 04/24/17 06/24/17 History Promethazine HCl 50 mg PO Q4-6H PRN 04/24/17 06/24/17 History rOPINIRole [Requip] 1 mg PO BEDTIME 04/24/17 06/24/17 History clonazePAM [Clonazepam] 1 mg PO TID 05/08/17 06/24/17 History levETIRAcetam TAB [Keppra Tab] 500 mg PO BID tablet 05/14/17 06/24/17 Rx Aspirin EC Tab 81 mg PO DAILY 06/24/17 06/24/17 History Warfarin [Coumadin] 5 mg PO WE 06/24/17 06/24/17 History Warfarin [Coumadin] 7.5 mg PO SUMOTUTHFRSA 06/24/17 06/24/17 History Allergies Allergy/AdvReac Type Severity Reaction Status Date / Time Iodinated Contrast Media - Allergy RASH Verified 06/24/17 22:16 Oral and [Iodinated Contrast Media - IV Dye] Penicillins Allergy ANAPHYLAXIS Verified 06/24/17 22:16 aspirin AdvReac Nausea Verified 06/24/17 22:16 cephalexin [From Keflex] AdvReac Vomiting Verified 06/24/17 22:16 Sulfa (Sulfonamide AdvReac Vomiting Verified 06/24/17 22:16 Antibiotics) Medical,Surgical,& Family Hx - Medical History Cardio: History of: Cardiac Dysrhythmia, CAD (CABG x 3 (November 2016)), Hypertension, Valvular Heart Disease (mechanical AVR & MVR), Cardiovascular Problems (impression recent aortic issue.) Psychological: History of: Anxiety Disorders, Depression Neurology: History of: Peripheral Neuropathy (FEET/TOES), Seizures (Last seizure 3 months ago), Vertigo No history of: Dementia Endocrine: History of: Diabetes Mellitus (IDDM), Dyslipidemia Rheumatology: History of;: Fibromyalgia Respiratory: History of: Asthma, COPD Renal: History of: Dialysis, Renal Failure (ESRD) Gastrointestinal: History of: GERD, Gastrointestinal Bleed, Hepatitis (HEP B) Musculoskeletal: History of: Back/Neck Problems Hematology: History of: Anemia, Bleeding Problems (high inr), Clotting Problems (pt states she had a clot "three or four years ago") No history of: Blood Transfusion Reaction Other: History of: Miscellaneous Medical Problems (Sinus surgery) No history of: Anesthesia Reactions - Surgical History Cardiac Surgeries: Sugical HX of: Cardiac Catheterization (NO STENTS PLACE), Cardiac Surgery (mechanical MVR and AVR) Thoracic Surgeries: Patient denies;: Organ Transplant HEENT Surgeries: Surgical HX of: Tonsilectomy & Adenoidectomy Abdominal Surgeries: Surgical HX of: Abdominal Surgery (COLON REMOVED), Cholecystectomy Reproductive Surgeries: Surgical HX of;: Gynecologic Surgery, Hysterectomy - Family History Family History: Reports;: Family Cancer (mother ovarian, sister breast), Family Diabetes (mother), Family Heart Disease (mother -[place]), Family Hypertension ( mother), Family Stroke (mother and brother) - Social History Smoking Status: Former smoker Frequency of Alcohol Use: None Type of Drug Use: None 12 point system: reviewed and no additional remarkable complaints except as stated - Constitutional Constitutional: Present: as per HPI, weakness - EENT Eyes: Present: as per HPI Ears: Present: as per HPI Nose, mouth and throat: Present: as per HPI - Cardiovascular Cardiovascular: Present: as per HPI - Respiratory Respiratory: Present: as per HPI - Gastrointestinal Gastrointestinal: Present: as per HPI, abdominal pain, nausea, other ("spitting up blood") - Genitourinary Genitourinary: Present: as per HPI - Musculoskeletal Musculoskeletal: Present: as per HPI - Neurological Neurological: Present: as per HPI - Psychiatric Psychiatric: Present: as per HPI - Endocrine Endocrine: Present: as per HPI - Hematologic/Lymphatic Hematologic/Lymphatic: Present: as per HPI Exam - Constitutional Vitals: Period Temp Pulse Resp BP Sys/Vargas Pulse Ox Last 24 Hr 96.3 F-97.3 F 92-98 18-22 137-180/69-81 95-98 General appearance: normal weight, no acute distress - Head Head exam: Present: normal inspection, normocephalic - Eye Eye exam: Present: other (lids and conjunctiva unremarkable). Absent: scleral icterus - ENT ENT exam: Present: normal exam, normal oropharynx - Neck Neck exam: Present: normal inspection - Respiratory Respiratory exam: Present: clear to auscultation bilaterally. Absent: rales, rhonchi, wheezes - Cardiovascular Cardiovascular exam: Present: regular rate and rhythm. Absent: diastolic murmur , JVD, systolic murmur - GI/Abdominal GI/Abdominal exam: Present: normal bowel sounds, soft. Absent: ascites, distended, mass, organomegaly, tenderness - Extremities Exam Extremities exam: Present: normal inspection, full ROM - Back Exam Back exam: Present: normal inspection - Neurological Exam Neurological exam: Present: alert, oriented X3 - Psychiatric Psychiatric exam: Present: normal affect, normal mood - Skin Skin exam: Present: normal color, warm, dry Results - Labs CBC & BMP: 06/25/17 08:21 06/25/17 08:21 Lab Results: I have reviewed the past 24 hour labs
[2017-06-25] MEDS: CALCIUM ACETATE 667 MG CAPSULE PO SCH ×3 (10:04→17:19)
[2017-06-25] MEDS: RANOLAZINE 500 MG TABLET PO SCH ×2 (10:04→20:51)
[2017-06-25] MEDS: CYCLOBENZAPRINE 10 MG TABLET PO SCH ×3 (10:05→20:57)
[2017-06-25] MEDS: OLANZapine 2.5 MG TABLET PO SCH ×2 (10:05→20:51)
[2017-06-25] MEDS: levETIRAcetam 500 MG TABLET PO SCH ×2 (10:05→20:51)
[2017-06-25] MEDS: ASPIRIN EC 81 MG TABLET PO SCH (10:05)
[2017-06-25] MEDS: PANTOPRAZOLE 40 MG TABLET PO SCH ×2 (10:05→20:52)
[2017-06-25] MEDS: CARVEDILOL 3.125 MG TABLET PO SCH ×2 (10:05→20:52)
[2017-06-25] MEDS: CINACALCET 30 MG TABLET PO SCH (10:05)
[2017-06-25] MEDS: clonazePAM 0.5 MG TABLET PO SCH ×3 (10:06→20:51)
[2017-06-25] MEDS: amLODIPine 5 MG TABLET PO SCH (10:06)
[2017-06-25] MEDS: BUDESONIDE/FORMOTEROL 160-4.5 INHALER 6 GM INH SCH ×2 (10:09→20:58)
[2017-06-25] MEDS: PROMETHAZINE 25 MG TABLET PO PRN ×2 (14:49→23:00)
[2017-06-25] MEDS: WARFARIN 7.5 MG TABLET PO SCH (17:19)
--- NOTE | 2017-06-25 18:55 | Nephrology Consult Note ---
History of Present Illness Chief complaint: End-stage renal disease History of present illness: Ms. Betancourt is a 61 year old female end-stage renal disease currently dialyzes on a Sunday schedule she has a history of coronary artery disease and status post mechanical heart valve that requires Coumadin therapy. She has had multiple hospitalizations this year due to GI bleed weakness. She states that she was in usual state of health up until 2 days ago when she started feeling weak started spitting up blood. She felt like she probably need another blood transfusion due to her feeling weak and tired. She was initially found to have a hemoglobin of 6.9 that trended up to 7.6 without intervention. At present her hemoglobin is 7.9. No signs of active bleeding. She has been hemodynamically stable. Nephrology is been consulted for renal issues. Home Medications Medication Instructions Recorded Confirmed Type Budesonide/Formoterol 160-4.5 2 puffs INH BID 03/03/17 06/24/17 History [Symbicort 160-4.5] Cyclobenzaprine [Flexeril] 10 mg PO TID 03/03/17 06/24/17 History Montelukast Tab [Singulair Tab] 10 mg PO BEDTIME 03/03/17 06/24/17 History OLANZapine [Olanzapine] 2.5 mg PO BID 03/03/17 06/24/17 History Pantoprazole Tab [Protonix Tab] 40 mg PO BID 03/03/17 06/24/17 History Pravastatin [Pravachol] 20 mg PO BEDTIME 03/03/17 06/24/17 History Ranolazine [Ranexa] 1,000 mg PO BID 03/03/17 06/24/17 History Temazepam [Restoril] 15 mg PO BEDTIME 03/03/17 06/24/17 History amLODIPine [Norvasc] 5 mg PO DAILY tablet 03/10/17 06/24/17 Rx Carvedilol [Coreg] 3.125 mg PO BID #0 tablet 04/04/17 06/24/17 Rx Benzonatate [Tessalon] 100 mg PO TID PRN 04/24/17 06/24/17 History Calcium Acetate [Phoslo] 1,334 mg PO QID 04/24/17 06/24/17 History Cinacalcet [Sensipar] 60 mg PO DAILY 04/24/17 06/24/17 History Levothyroxine Tab [Synthroid Tab] 100 mcg PO DAILY 04/24/17 06/24/17 History Linagliptin [Tradjenta] 5 mg PO DAILY 04/24/17 06/24/17 History Promethazine HCl 50 mg PO Q4-6H PRN 04/24/17 06/24/17 History rOPINIRole [Requip] 1 mg PO BEDTIME 04/24/17 06/24/17 History clonazePAM [Clonazepam] 1 mg PO TID 05/08/17 06/24/17 History levETIRAcetam TAB [Keppra Tab] 500 mg PO BID tablet 05/14/17 06/24/17 Rx Aspirin EC Tab 81 mg PO DAILY 06/24/17 06/24/17 History Warfarin [Coumadin] 5 mg PO WE 06/24/17 06/24/17 History Warfarin [Coumadin] 7.5 mg PO SUMOTUTHFRSA 06/24/17 06/24/17 History Allergies Allergy/AdvReac Type Severity Reaction Status Date / Time Iodinated Contrast Media - Allergy RASH Verified 06/24/17 22:16 Oral and [Iodinated Contrast Media - IV Dye] Penicillins Allergy ANAPHYLAXIS Verified 06/24/17 22:16 aspirin AdvReac Nausea Verified 06/24/17 22:16 cephalexin [From Keflex] AdvReac Vomiting Verified 06/24/17 22:16 Sulfa (Sulfonamide AdvReac Vomiting Verified 06/24/17 22:16 Antibiotics) Medical,Surgical,& Family Hx - Medical History Cardio: History of: Cardiac Dysrhythmia, CAD (CABG x 3 (November 2016)), Hypertension, Valvular Heart Disease (mechanical AVR & MVR), Cardiovascular Problems (impression recent aortic issue.) Psychological: History of: Anxiety Disorders, Depression Neurology: History of: Peripheral Neuropathy (FEET/TOES), Seizures (Last seizure 3 months ago), Vertigo No history of: Dementia Endocrine: History of: Diabetes Mellitus (IDDM), Dyslipidemia Rheumatology: History of;: Fibromyalgia Respiratory: History of: Asthma, COPD Renal: History of: Dialysis, Renal Failure (ESRD) Gastrointestinal: History of: GERD, Gastrointestinal Bleed, Hepatitis (HEP B) Musculoskeletal: History of: Back/Neck Problems Hematology: History of: Anemia, Bleeding Problems (high inr), Clotting Problems (pt states she had a clot "three or four years ago") No history of: Blood Transfusion Reaction Other: History of: Miscellaneous Medical Problems (Sinus surgery) No history of: Anesthesia Reactions - Surgical History Cardiac Surgeries: Sugical HX of: Cardiac Catheterization (NO STENTS PLACE), Cardiac Surgery (mechanical MVR and AVR) Thoracic Surgeries: Patient denies;: Organ Transplant HEENT Surgeries: Surgical HX of: Tonsilectomy & Adenoidectomy Abdominal Surgeries: Surgical HX of: Abdominal Surgery (COLON REMOVED), Cholecystectomy Reproductive Surgeries: Surgical HX of;: Gynecologic Surgery, Hysterectomy - Family History Family History: Reports;: Family Cancer (mother ovarian, sister breast), Family Diabetes (mother), Family Heart Disease (mother -[place]), Family Hypertension ( mother), Family Stroke (mother and brother) - Social History Smoking Status: Former smoker Frequency of Alcohol Use: None Type of Drug Use: None Review of Systems Constitutional: fatigue, lethargy, malaise Nose, mouth and throat: no dysphagia, no hoarseness Respiratory: dyspnea Gastrointestinal: no abdominal pain Exam - Vital Signs Vital signs: Period Temp Pulse Resp BP Sys/Vargas Pulse Ox Last 24 Hr 96.2 F-98.1 F 90-98 18-22 123-180/62-81 90-98 - General Appearance General appearance: well-developed, well-nourished, fatigue EENT: ATNC Neck: supple Respiratory: clear Cardiology: no edema, regular rate, regular rhythm Gastrointestinal: normoactive bowel sounds, no tenderness, no masses Integumentary: no rash Neurologic: alert and oriented x3 Musculoskeletal: no clubbing Psychiatric: mood/affect appropriate, cooperative Results - Labs CBC & BMP: 06/25/17 08:21 06/25/17 08:21 Assessment and Plan (1) GI bleed Problem details: Still with ongoing blood loss. Status: Acute Current Visit : No (2) Hx of mechanical aortic valve replacement Status: Chronic Current Visit: No (3) Weakness Status: Chronic Current Visit: No (4) Chronic anticoagulation Status: Chronic Current Visit: No (5) End stage renal disease Status: Chronic Assessment and plan: He was scheduled hemodialysis on Sunday schedule. Current Visit: No (6) Anemia Status: Chronic Current Visit: No Qualifiers: Chronic kidney disease stage: on chronic dialysis
[2017-06-25] MEDS ORDERED: TEMAZEPAM 15 MG CAPSULE PO SCH (21:00)
[2017-06-25] MEDS ORDERED: PRAVASTATIN 20 MG TABLET PO SCH (21:00)
[2017-06-25] MEDS ORDERED: MONTELUKAST 10 MG TABLET PO SCH (21:00)
[2017-06-25] MEDS ORDERED: rOPINIRole 1 MG TABLET PO SCH (21:00)
[2017-06-26] MEDS: INSULIN REGULAR 100 UNIT/ML SUBCUT SCH ×4 (03:17→16:52)
[2017-06-26] MEDS: LEVOTHYROXINE 100 MCG TABLET PO SCH (06:20)
[2017-06-26 06:30] LABS: Basophils % 0.4 % (0.0-0.8); Eosinophils % 0.4 % (0.00-10.9); Hematocrit 22.9 VOL% (35.7-47.0); Hemoglobin 7.5 GM/DL (12.0-16.0); Immature Granulocytes % 0.5 %; Immature Granulocytes Absolute 0.04 #; Lymphocytes # 0.5 10*3/uL (1.4-4.0); Lymphocytes % 7.1 % (21.3-54.2); Mean Corpuscular HGB Conc 32.8 GM/DL (32-36); Mean Corpuscular Hemoglobin 33 PG (27-34); Mean Corpuscular Volume 100.9 FL (87-102); Mean Platelet Volume 10.4 FL (9.6-12.0); Monocytes # 0.5 10*3/uL (0.11-0.8); Monocytes % 6.3 % (1.7-12.7); Neutrophils # 6.5 10*3/uL (1.4-7.4); Neutrophils % 85.3 % (38.7-73.9); Platelet Count 143 T/CUMM (130-400); Red Blood Count 2.27 MC/CUMM (3.8-5.5); Red Cell Distribution Width 20.7 % (9.3-17.3); White Blood Count 7.6 T/CUMM (4-12)
[2017-06-26 08:10] VITALS: BP 123/59
[2017-06-26] MEDS: CARVEDILOL 3.125 MG TABLET PO SCH (08:24)
[2017-06-26] MEDS: CINACALCET 30 MG TABLET PO SCH (08:24)
[2017-06-26] MEDS: OLANZapine 2.5 MG TABLET PO SCH (08:24)
[2017-06-26] MEDS: CALCIUM ACETATE 667 MG CAPSULE PO SCH ×4 (08:24→17:40)
[2017-06-26] MEDS: amLODIPine 5 MG TABLET PO SCH (08:24)
[2017-06-26] MEDS: levETIRAcetam 500 MG TABLET PO SCH (08:24)
[2017-06-26] MEDS: CYCLOBENZAPRINE 10 MG TABLET PO SCH ×2 (08:24→15:03)
[2017-06-26] MEDS: PANTOPRAZOLE 40 MG TABLET PO SCH (08:25)
[2017-06-26] MEDS: clonazePAM 0.5 MG TABLET PO SCH ×2 (08:25→15:03)
[2017-06-26] MEDS: ASPIRIN EC 81 MG TABLET PO SCH (08:25)
[2017-06-26] MEDS: BUDESONIDE/FORMOTEROL 160-4.5 INHALER 6 GM INH SCH (08:25)
[2017-06-26] MEDS: RANOLAZINE 500 MG TABLET PO SCH (08:25)
--- NOTE | 2017-06-26 10:12 | Gastrointestinal Progress Note ---
Assessment and Plan (1) Symptomatic anemia Status: Resolved Assessment and plan: 06/26-no reports of overt bleeding. Hemoglobin noted as below. Continue reports of fatigue and weakness. Currently on dialysis. Plan an addendum to followed by Dr. Luke. 06/25-Reports of "spitting up blood" and weakness with hx of anemia, multiple GI bleeds and blood transfusions as well as hx of AVMs in the past. HH noted as below. For dialysis on tomorrow and tentative transfusion at that time. No overt bleeding. Prior endoscopy noted as below. Plan and addendum to follow by Dr Luke. Current Visit: No Gastroenterology - PN: Subj Interval history: CC: Anemia Patient is seen awake and alert, in dialysis. States she had a restful night. She has had no overt signs of bleeding. Denies any abdominal pain, nausea vomiting. She is tolerating her diet well. Her hemoglobin was rechecked today and is down slightly 7.5. Abdomen soft, nontender. Patient states today she is just generally not feeling well and feels very fatigued at this time. ROS: Denies shortness breath or chest pain Exam (Progress Note) - Constitutional Vitals: Period Temp Pulse Resp BP Sys/Vargas Pulse Ox Last 24 Hr 96.2 F-98.1 F 83-95 15-20 123-141/59-80 86-93 - Other Additional findings: General appearance: normal weight, no acute distress - Head Head exam: Present: normal inspection, normocephalic - Eye Eye exam: Present: other (lids and conjunctiva unremarkable). Absent: scleral icterus - ENT ENT exam: Present: normal exam, normal oropharynx - Neck Neck exam: Present: normal inspection - Respiratory Respiratory exam: Present: clear to auscultation bilaterally. Absent: rales, rhonchi, wheezes - Cardiovascular Cardiovascular exam: Present: regular rate and rhythm. Absent: diastolic murmur , JVD, systolic murmur - GI/Abdominal GI/Abdominal exam: Present: normal bowel sounds, soft. Absent: ascites, distended, mass, organomegaly, tenderness - Extremities Exam Extremities exam: Present: normal inspection, full ROM - Back Exam Back exam: Present: normal inspection - Neurological Exam Neurological exam: Present: alert, oriented X3 - Psychiatric Psychiatric exam: Present: normal affect, normal mood - Skin Skin exam: Present: normal color, warm, dry Results - Labs CBC & BMP: 06/26/17 06:18 06/25/17 08:21 Lab Results: I have reviewed the past 24 hour labs
--- NOTE | 2017-06-26 11:24 | Physician Query Form ---
CLICK EDIT DOCUMENT TO SELECT QUERY ANSWER --> OK --> SIGN Samira Linares RN Clinical Rate Supervisor W) [phone] (f) [phone] [email or web address] PROVIDERS: Make your selection(s) from the choices in EACH section by typing an "x" and enter comments in the comment section. Please use your independent medical judgment in providing your response. This request does not imply that any particular answer is desired or expected. CLINICAL INDICATORS: (Providers should not edit this section) Based on documentation of "Acute Anemia" "Acute lower GI bleed" "Agree with plans for transfusion" HH of 6.6/19.9. "She had been coughing and spitting up some dark red blood the last couple of days but denies gross GI bleeding." INR 2.5 on admission Monitored with serial lab checks, NS infusion. Based on the above, could you clarify which of the following conditions you are evaluating, treating, and/or monitoring? ( ) Blood loss anemia ( ) acute ( ) chronic ( ) acute on chronic (X ) Acute blood loss anemia on baseline chronic anemia ( ) Acute blood loss anemia as a complication of a procedure ( ) Iron deficiency anemia not associated with blood loss ( ) Dilutional anemia due to IV fluids ( ) Anemia due to chronic kidney disease ( ) Hemolytic anemia ( ) immune ( ) non-immune - please specify cause: ( ) Anemia due to other condition, please specify: ( ) Clinically unable to determine COMMENTS: PLEASE ALSO DOCUMENT RESPONSE IN PROGRESS NOTES AND/OR DISCHARGE SUMMARY Use of terms such as suspected, likely, or probable (associated with a specific diagnosis that is being evaluated, monitored, or treated as if it exists) are acceptable and can be restated in the discharge summary if not ruled out. MTDD
--- NOTE | 2017-06-26 13:09 | Discharge Summary ---
Hospital Course - Hospital Course Hospital Course: Ms. Betancourt is a 61-year-old female with end-stage renal disease and a history of arteriovenous malformations that presented to the emergency department with symptomatic anemia. She was diagnosed with acute on chronic anemia secondary to blood loss. Her repeat H&H the following day had improved. She has had no signs of overt bleeding during the course of the hospitalization. She was transfused 2 units of packed red blood cells during dialysis. The patient is very difficult to obtain IV access on and therefore was transfused during her dialysis treatment. She was seen in consultation by Dr. Kelly her regular volunteer patient representative. She has reached maximal benefit from this inpatient hospitalization and is being discharged home today after her regularly scheduled dialysis treatment. She is instructed to follow-up with her outpatient dialysis unit as scheduled Sunday and Sunday. Her home medications were reviewed and reconciled. No medication changes were made. The patient is on Coumadin for chronic anticoagulation secondary to valvular replacement. - Time spent with patient Time with patient DS: Greater than 30 minutes (Total discharge time for this patient, including [id number] time, clinical documentation, medication reconciliation, and discharge planning was 38 minutes.) Diagnosis - Discharge Diagnosis (1) Acute blood loss anemia Status: Resolved (2) Diabetes Status: Acute (3) ESRD on dialysis Status: Chronic (4) Fatigue Status: Chronic Discharge Plan - Discharge Data Disposition: Disch To Home/Self Care Condition at Discharge: Stable Discharge Diet: advance to your usual diet Activity: resume usual activities as tolerated Hygiene: no restrictions Weight Bearing at Discharge: full weight bearing Contact your physician if you experience:: fever over 101, Bleeding - Discharge Medications Continue OLANZapine [Olanzapine] 2.5 mg PO BID Ranolazine [Ranexa] 1,000 mg PO BID Montelukast Tab [Singulair Tab] 10 mg PO BEDTIME Temazepam [Restoril] 15 mg PO BEDTIME Pantoprazole Tab [Protonix Tab] 40 mg PO BID Cyclobenzaprine [Flexeril] 10 mg PO TID amLODIPine [Norvasc] 5 mg PO DAILY tablet Carvedilol [Coreg] 3.125 mg PO BID #0 tablet Levothyroxine Tab [Synthroid Tab] 100 mcg PO DAILY Benzonatate [Tessalon] 100 mg PO TID PRN PRN Reason: Cough Promethazine HCl 50 mg PO Q4-6H PRN PRN Reason: Nausea rOPINIRole [Requip] 1 mg PO BEDTIME Calcium Acetate [Phoslo] 1,334 mg PO QID clonazePAM [Clonazepam] 1 mg PO TID Aspirin EC Tab 81 mg PO DAILY Warfarin [Coumadin] 7.5 mg PO SUMOTUTHFRSA Warfarin [Coumadin] 5 mg PO WE Budesonide/Formoterol 160-4.5 [Symbicort 160-4.5] 2 puffs INH BID Pravastatin [Pravachol] 20 mg PO BEDTIME Linagliptin [Tradjenta] 5 mg PO DAILY Cinacalcet [Sensipar] 60 mg PO DAILY levETIRAcetam TAB [Keppra Tab] 500 mg PO BID tablet - Follow Up or Referral - Forms/Instructions Exam - Constitutional Vitals: Period Temp Pulse Resp BP Sys/Vargas Pulse Ox Last 24 Hr 96.5 F-98.1 F 83-94 15-20 123-141/59-80 86-93 Discharge Results Procedures and tests throughout hospitalization: Pending Orders 06/25/17 00:00 Red Blood Cells Leuko Red Routine Labs on day of discharge: Labs from last 24 hours 06/26/17 06/26/17 06/26/17 12:00 07:32 06:18 WBC 7.6 RBC 2.27 L Hgb 7.5 L Hct 22.9 L MCV 100.9 MCH 33 MCHC 32.8 RDW 20.7 H Plt Count 143 MPV 10.4 Neut % (Auto) 85.3 H Lymph % (Auto) 7.1 L [place] % (Auto) 6.3 Eos % (Auto) 0.4 Baso % (Auto) 0.4 Neut # (Auto) 6.5 Lymph # (Auto) 0.5 L [place] # (Auto) 0.5 Eos # (Auto) 0.0 Baso # (Auto) 0.0 Immature Gran % 0.5 Nucleated RBC % 0.0 Immature Gran # 0.04 Nucleated RBCs # 0.00 Immature Plt Fraction 0.0 POC Glucose 91 168 H Blood Type Antibody Screen Crossmatch Blood Bank Comment 06/25/17 06/25/17 06/25/17 18:33 15:17 00:00 WBC RBC Hgb Hct MCV MCH MCHC RDW Plt Count MPV Neut % (Auto) Lymph % (Auto) [place] % (Auto) Eos % (Auto) Baso % (Auto) Neut # (Auto) Lymph # (Auto) [place] # (Auto) Eos # (Auto) Baso # (Auto) Immature Gran % Nucleated RBC % Immature Gran # Nucleated RBCs # Immature Plt Fraction POC Glucose 146 H 113 H Blood Type Cancelled Antibody Screen Cancelled Crossmatch See Detail Blood Bank Comment Cancelled DS: Provider Date of admission: 06/25/17 01:55 Primary care physician: . No PCP Attending physician on admission: Yury Munroe MD Consults: 06/25/17 00:58 Consult to Physician [CONS] Routine Comment: Consulting Provider: Darion Luke When should Consulting Provider be notified: In am Person Notified: JESU Date Notified: 06/25/17 Time Notified: 09:24 Consult to Physician [CONS] Routine Comment: [facility] dialysis patient Consulting Provider: Gurpreet Becerra Jr. Consult to Specialist Group: Nephrology When should Consulting Provider be notified: In am Person Notified: LAURENT Date Notified: 06/25/17 Time Notified: 07:39 Discharging clinician: Ellen Paris MD Expected date of discharge: 06/26/17
--- NOTE | 2017-06-26 13:14 | Dialysis Note ---
Dialysis Note - Dialysis Note Ms. Betancourt is seen during her hemodialysis. She is doing fairly well and has tolerated dialysis well thus far. Plan is to continue with dialysis as an outpatient
[2017-06-26] MEDS: WARFARIN 7.5 MG TABLET PO SCH (17:40)
[2017-06-27] MEDS ORDERED: WARFARIN 5 MG TABLET PO SCH (18:00)
== END 2017-06-26 18:26 | disposition home or self-care (01) | DRG 377 ==
LOC: N.ED 21:33 → SUATTDRO 06-25 00:58 → N.EDINP 06-25 01:33 → N.2E 06-25 01:39
PROVIDERS: ADMIT Internal Medicine; ATTEND Family Medicine

== ENCOUNTER 2017-07-16 12:09 | Inpatient (IN) ==
[2017-07-16 14:45] LABS: Basophils % 0.4 % (0.0-0.8); Eosinophils # 0.1 10*3/uL (0.0-0.87); Eosinophils % 2.3 % (0.00-10.9); Hematocrit 21.4 VOL% (35.7-47.0); Hemoglobin 6.9 GM/DL (12.0-16.0); Immature Granulocytes % 0.7 %; Immature Granulocytes Absolute 0.04 #; Mean Corpuscular HGB Conc 32.2 GM/DL (32-36); Mean Corpuscular Hemoglobin 31 PG (27-34); Mean Corpuscular Volume 94.7 FL (87-102); Mean Platelet Volume 9.6 FL (9.6-12.0); Monocytes # 0.3 10*3/uL (0.11-0.8); Monocytes % 5.5 % (1.7-12.7); Neutrophils # 4.1 10*3/uL (1.4-7.4); Neutrophils % 74.1 % (38.7-73.9); Platelet Count 241 T/CUMM (130-400); Red Blood Count 2.26 MC/CUMM (3.8-5.5); White Blood Count 5.6 T/CUMM (4-12)
[2017-07-16] MEDS ORDERED: GLUCAGON 1 MG VIAL IM PRN (15:53)
[2017-07-16] MEDS ORDERED: ACETAMINOPHEN 325 MG TABLET PO PRN ×2 (15:53)
[2017-07-16] MEDS ORDERED: guaiFENesin/DM ER 600-30 MG TABLET PO PRN (15:53)
[2017-07-16] MEDS ORDERED: DOCUSATE SODIUM 100 MG CAPSULE PO PRN (15:53)
[2017-07-16] MEDS ORDERED: DEXTROSE 50% 25 GM/50 ML VIAL IV PRN (15:53)
[2017-07-16] MEDS ORDERED: diphenhydrAMINE CAP 25 MG CAPSULE PO PRN (15:53)
[2017-07-16] MEDS ORDERED: SODIUM CHLORIDE 0.9% 250 ML IV PRN (15:59)
[2017-07-16 16:28] LABS: PT Patient Result 56.2 SECS
[2017-07-16 16:29] LABS: INR 5.7
[2017-07-16] MEDS ORDERED: LEVOFLOXACIN INJ 500 MG in PREMIX 1 EACH IV SCH (16:30)
[2017-07-16] MEDS ORDERED: LEVOFLOXACIN INJ 750 MG in PREMIX 1 EACH IV SCH (16:30)
[2017-07-16] MEDS: SODIUM CHLORIDE 0.9% 1,000 ML IV SCH (17:20)
[2017-07-16] MEDS ORDERED: PANTOPRAZOLE 40 MG TABLET PO ONE (17:22)
[2017-07-16] MEDS ORDERED: LEVOFLOXACIN INJ 150 ML IV ONE (17:23)
[2017-07-16] MEDS: PANTOPRAZOLE 40 MG TABLET PO SCH ×2 (17:26→21:06)
[2017-07-16] MEDS ORDERED: BENZONATATE 100 MG CAPSULE PO PRN (17:35)
[2017-07-16] MEDS ORDERED: PROMETHAZINE 25 MG TABLET PO PRN (17:35)
[2017-07-16] MEDS ORDERED: PROMETHAZINE 25 MG/1 ML VIAL IM PRN (18:26)
[2017-07-16] MEDS: ONDANSETRON 4 MG/2 ML VIAL IV PRN (20:56)
[2017-07-16] MEDS: RANOLAZINE 500 MG TABLET PO SCH (21:05)
[2017-07-16] MEDS: MONTELUKAST 10 MG TABLET PO SCH (21:05)
[2017-07-16] MEDS: CINACALCET 30 MG TABLET PO SCH (21:05)
[2017-07-16] MEDS: OLANZapine 2.5 MG TABLET PO SCH (21:05)
[2017-07-16] MEDS: CYCLOBENZAPRINE 10 MG TABLET PO PRN (21:05)
[2017-07-16] MEDS: LEVOTHYROXINE 100 MCG TABLET PO SCH (21:05)
[2017-07-16] MEDS: rOPINIRole 1 MG TABLET PO SCH (21:05)
[2017-07-16] MEDS: TEMAZEPAM 15 MG CAPSULE PO SCH (21:05)
[2017-07-16] MEDS: ASPIRIN EC 81 MG TABLET PO SCH (21:05)
[2017-07-16] MEDS: CARVEDILOL 6.25 MG TABLET PO SCH (21:06)
[2017-07-16] MEDS: CALCIUM ACETATE 667 MG CAPSULE PO SCH ×2 (21:06→21:45)
[2017-07-16] MEDS: PRAVASTATIN 20 MG TABLET PO SCH (21:06)
[2017-07-16] MEDS: amLODIPine 5 MG TABLET PO SCH (21:06)
[2017-07-16] MEDS: levETIRAcetam 500 MG TABLET PO SCH (21:13)
[2017-07-16] MEDS: INSULIN LISPRO 100 UNIT/ML SUBCUT SCH (21:14)
[2017-07-16] MEDS: BUDESONIDE/FORMOTEROL 160-4.5 INHALER 6 GM INH SCH (21:14)
[2017-07-16] MEDS ORDERED: ALBUTEROL 2.5 MG/3 ML NEB RESP TX PRN (21:36)
[2017-07-16] MEDS: ALBUTEROL/IPRATROPIUM 3 ML NEB RESP TX SCH (21:58)
[2017-07-17] MEDS: SODIUM CHLORIDE 0.9% 1,000 ML IV SCH ×2 (06:56→08:51)
[2017-07-17] MEDS: ALBUTEROL/IPRATROPIUM 3 ML NEB RESP TX SCH ×2 (07:41→20:37)
[2017-07-17 07:45] LABS: Basophils % 0.3 % (0.0-0.8); Eosinophils # 0.1 10*3/uL (0.0-0.87); Eosinophils % 2.2 % (0.00-10.9); Hematocrit 19.8 VOL% (35.7-47.0); Hemoglobin 6.5 GM/DL (12.0-16.0); Immature Granulocytes % 0.5 %; Immature Granulocytes Absolute 0.03 #; Mean Corpuscular HGB Conc 32.8 GM/DL (32-36); Mean Corpuscular Hemoglobin 31 PG (27-34); Mean Corpuscular Volume 93.8 FL (87-102); Mean Platelet Volume 10.6 FL (9.6-12.0); Monocytes # 0.3 10*3/uL (0.11-0.8); Monocytes % 4.9 % (1.7-12.7); NRBC # 0.02 10*3/uL; Neutrophils # 4.8 10*3/uL (1.4-7.4); Neutrophils % 76.1 % (38.7-73.9); Platelet Count 197 T/CUMM (130-400); Red Blood Count 2.11 MC/CUMM (3.8-5.5); Red Cell Distribution Width 19.3 % (9.3-17.3); White Blood Count 6.3 T/CUMM (4-12)
[2017-07-17 08:07] LABS: Calcium 9.7 MG/DL (8.5-10.1); Magnesium 1.6 MG/DL (1.8-2.4); Osmolality,Calculated 280.2 MOS/KG (273-304)
[2017-07-17 08:11] LABS: Potassium 6.1 MMOL/L (3.5-5.1)
[2017-07-17] MEDS ORDERED: LIDOCAINE/PRILOCAINE CREAM 5 GM TUBE TOP ONE (08:18)
[2017-07-17] MEDS: RANOLAZINE 500 MG TABLET PO SCH ×2 (08:44→21:18)
[2017-07-17] MEDS: CARVEDILOL 6.25 MG TABLET PO SCH ×2 (08:44→21:19)
[2017-07-17] MEDS: CINACALCET 30 MG TABLET PO SCH (08:44)
[2017-07-17] MEDS: PANTOPRAZOLE 40 MG TABLET PO SCH ×3 (08:46→21:19)
[2017-07-17] MEDS: OLANZapine 2.5 MG TABLET PO SCH ×2 (08:46→21:19)
[2017-07-17] MEDS: LEVOTHYROXINE 100 MCG TABLET PO SCH (08:46)
[2017-07-17] MEDS: levETIRAcetam 500 MG TABLET PO SCH ×2 (08:46→21:19)
[2017-07-17] MEDS: CALCIUM ACETATE 667 MG CAPSULE PO SCH ×5 (08:47→21:17)
[2017-07-17] MEDS: INSULIN LISPRO 100 UNIT/ML SUBCUT SCH ×2 (08:49→18:18)
[2017-07-17 08:50] LABS: PT Patient Result 101.2 SECS
[2017-07-17] MEDS: ASPIRIN EC 81 MG TABLET PO SCH (08:51)
[2017-07-17] MEDS: BUDESONIDE/FORMOTEROL 160-4.5 INHALER 6 GM INH SCH ×2 (08:52→21:30)
[2017-07-17 08:53] LABS: INR 10.5
[2017-07-17] MEDS ORDERED: SODIUM CHLORIDE 0.9% 250 ML IV PRN (08:54)
[2017-07-17] MEDS ORDERED: TRADJENTA 5 MG PO SCH (09:00)
[2017-07-17] MEDS ORDERED: PHYTONADIONE 5 MG TABLET PO ONE (09:53)
[2017-07-17] MEDS ORDERED: PHYTONADIONE 10 MG/1 ML AMP SUBCUT ONE (09:53)
[2017-07-17] MEDS: amLODIPine 5 MG TABLET PO SCH (11:53)
[2017-07-17] MEDS: ONDANSETRON 4 MG/2 ML VIAL IV PRN (12:40)
[2017-07-17 19:44] LABS: Hematocrit 25.3 VOL% (35.7-47.0); Hemoglobin 8.4 GM/DL (12.0-16.0)
[2017-07-17] MEDS: CYCLOBENZAPRINE 10 MG TABLET PO PRN (21:18)
[2017-07-17] MEDS: rOPINIRole 1 MG TABLET PO SCH (21:18)
[2017-07-17] MEDS: TEMAZEPAM 15 MG CAPSULE PO SCH (21:19)
[2017-07-17] MEDS: MONTELUKAST 10 MG TABLET PO SCH (21:19)
[2017-07-17] MEDS: PRAVASTATIN 20 MG TABLET PO SCH (21:19)
[2017-07-18 06:53] LABS: Basophils % 0.7 % (0.0-0.8); Eosinophils # 0.1 10*3/uL (0.0-0.87); Eosinophils % 2.1 % (0.00-10.9); Hematocrit 25.9 VOL% (35.7-47.0); Hemoglobin 8.6 GM/DL (12.0-16.0); Immature Granulocytes % 0.7 %; Immature Granulocytes Absolute 0.04 #; Lymphocytes # 1.1 10*3/uL (1.4-4.0); Lymphocytes % 18.7 % (21.3-54.2); Mean Corpuscular HGB Conc 33.2 GM/DL (32-36); Mean Corpuscular Hemoglobin 30 PG (27-34); Mean Corpuscular Volume 90.2 FL (87-102); Monocytes # 0.4 10*3/uL (0.11-0.8); Monocytes % 6.2 % (1.7-12.7); NRBC # 0.03 10*3/uL; Neutrophils # 4.2 10*3/uL (1.4-7.4); Neutrophils % 71.6 % (38.7-73.9); Platelet Count 230 T/CUMM (130-400); Red Blood Count 2.87 MC/CUMM (3.8-5.5); Red Cell Distribution Width 17.9 % (9.3-17.3); White Blood Count 5.8 T/CUMM (4-12)
[2017-07-18] MEDS ORDERED: ALBUTEROL/IPRATROPIUM 3 ML NEB RESP TX SCH (07:00)
[2017-07-18 07:01] LABS: INR 1.8; PT Patient Result 18.9 SECS
[2017-07-18 07:29] LABS: Calcium 9.1 MG/DL (8.5-10.1); Magnesium 1.8 MG/DL (1.8-2.4); Osmolality,Calculated 269.5 MOS/KG (273-304); Potassium 4.8 MMOL/L (3.5-5.1)
[2017-07-18] MEDS: CINACALCET 30 MG TABLET PO SCH (08:36)
[2017-07-18] MEDS: CALCIUM ACETATE 667 MG CAPSULE PO SCH (08:36)
[2017-07-18] MEDS: CYCLOBENZAPRINE 10 MG TABLET PO PRN (08:36)
[2017-07-18] MEDS: OLANZapine 2.5 MG TABLET PO SCH (08:36)
[2017-07-18] MEDS: LEVOTHYROXINE 100 MCG TABLET PO SCH (08:36)
[2017-07-18] MEDS: RANOLAZINE 500 MG TABLET PO SCH (08:36)
[2017-07-18] MEDS: ASPIRIN EC 81 MG TABLET PO SCH (08:36)
[2017-07-18] MEDS ORDERED: AZITHROMYCIN 250 MG TABLET PO ONE (08:36)
[2017-07-18] MEDS: CARVEDILOL 6.25 MG TABLET PO SCH (08:36)
[2017-07-18] MEDS: amLODIPine 5 MG TABLET PO SCH (08:37)
[2017-07-18] MEDS: PANTOPRAZOLE 40 MG TABLET PO SCH ×2 (08:37)
[2017-07-18] MEDS: INSULIN LISPRO 100 UNIT/ML SUBCUT SCH (08:37)
[2017-07-18] MEDS: levETIRAcetam 500 MG TABLET PO SCH (08:37)
[2017-07-18] MEDS ORDERED: ONDANSETRON 4 MG TABLET PO PRN (09:35)
[2017-07-18] MEDS: BUDESONIDE/FORMOTEROL 160-4.5 INHALER 6 GM INH SCH (09:48)
[2017-07-18 12:51] VITALS: BP 110/79
[2017-07-18] MEDS ORDERED: LEVOFLOXACIN INJ 750 MG in PREMIX 1 EACH IV SCH (17:30)
[2017-07-18] MEDS ORDERED: WARFARIN 5 MG TABLET PO SCH (18:00)
== END 2017-07-18 13:02 | disposition home or self-care (01) | DRG 813 ==
LOC: N.ED 12:09 → N.EDINP 12:09 → N.5E 18:22
PROVIDERS: ADMIT Internal Medicine; ATTEND Internal Medicine

== ENCOUNTER 2017-10-15 20:10 | Inpatient (IN) ==
[2017-10-15] MEDS ORDERED: PANTOPRAZOLE 40 MG VIAL IV STA (20:32)
[2017-10-15] MEDS ORDERED: ONDANSETRON 4 MG/2 ML VIAL IV STA (20:32)
[2017-10-15] MEDS ORDERED: ONDANSETRON 4 MG/2 ML VIAL ONE (21:07)
[2017-10-15] MEDS ORDERED: PANTOPRAZOLE 40 MG VIAL IV ONE (21:07)
[2017-10-15 22:08] LABS: Basophils # 0.1 10*3/uL (0.0-0.2); Basophils % 0.6 % (0.0-0.8); Eosinophils # 0.2 10*3/uL (0.0-0.87); Eosinophils % 2.8 % (0.00-10.9); Hematocrit 35.3 VOL% (35.7-47.0); Hemoglobin 11.7 GM/DL (12.0-16.0); Immature Granulocytes % 0.6 %; Immature Granulocytes Absolute 0.05 #; Lymphocytes # 1.6 10*3/uL (1.4-4.0); Lymphocytes % 20.3 % (21.3-54.2); Mean Corpuscular HGB Conc 33.1 GM/DL (32-36); Mean Corpuscular Hemoglobin 32 PG (27-34); Mean Corpuscular Volume 97.5 FL (87-102); Mean Platelet Volume 9.4 FL (9.6-12.0); Monocytes # 0.6 10*3/uL (0.11-0.8); Neutrophils # 5.5 10*3/uL (1.4-7.4); Neutrophils % 68.7 % (38.7-73.9); Platelet Count 200 T/CUMM (130-400); Red Blood Count 3.62 MC/CUMM (3.8-5.5); Red Cell Distribution Width 20.8 % (9.3-17.3)
[2017-10-15 22:24] LABS: INR 1.6; PT Patient Result 16.5 SECS
[2017-10-15 22:51] LABS: Alanine Aminotransferase 18 U/L (13-56); Albumin 3.9 G/DL (3.4-5.0); Alkaline Phosphatase 104 U/L (45-117); Amylase 107 U/L (25-115); Aspartate Amino Transferase 39 U/L (0-37); Blood Urea Nitrogen 65 MG/DL (7-18); Calcium 10.1 MG/DL (8.5-10.1); Glucose 83 MG/DL (74-106); Osmolality,Calculated 283.4 MOS/KG (273-304); Sodium 133 MMOL/L (136-145); Total Protein 8.1 G/DL (6.4-8.3); Troponin I Only < 0.015 NG/ML (0.00-0.045)
[2017-10-15 22:54] LABS: Lactic Acid 0.7 MMOL/L (0.4-2.0)
[2017-10-15 22:55] LABS: Potassium 7.2 MMOL/L (3.5-5.1)
[2017-10-15] MEDS ORDERED: CALCIUM CHLORIDE 1,000 MG/10 ML SYRINGE IV STA (23:28)
[2017-10-15] MEDS ORDERED: MAGNESIUM SULF RIDER 2 GM in PREMIX 1 EACH IV STA (23:28)
[2017-10-15] MEDS ORDERED: CALCIUM GLUCONATE 1,000 MG in SODIUM CHLORIDE 0.9% 100 ML IV ONE (23:30)
[2017-10-15] MEDS ORDERED: MAGNESIUM SULF RIDER 50 ML IV ONE (23:41)
[2017-10-15] MEDS ORDERED: CALCIUM CHLORIDE 1,000 MG/10 ML SYRINGE IV ONE (23:41)
[2017-10-15] MEDS ORDERED: SODIUM POLYSTYRENE SULFATE 15 GM/60 ML BOTTLE ONE (23:41)
[2017-10-15] MEDS: SODIUM POLYSTYRENE SULFATE 15 GM/60 ML BOTTLE PO SCH (23:55)
[2017-10-16] MEDS ORDERED: ONDANSETRON 4 MG/2 ML VIAL ONE (00:34)
[2017-10-16] MEDS: ONDANSETRON 4 MG/2 ML VIAL IV PRN (00:36)
[2017-10-16] MEDS ORDERED: DEXTROSE 50% 25 GM/50 ML VIAL IV PRN (00:48)
[2017-10-16] MEDS ORDERED: GLUCAGON 1 MG VIAL IM PRN (00:48)
[2017-10-16] MEDS ORDERED: ALBUTEROL/IPRATROPIUM 3 ML NEB RESP TX PRN (01:23)
[2017-10-16 04:03] LABS: Basophils # 0.1 10*3/uL (0.0-0.2); Basophils % 0.8 % (0.0-0.8); Eosinophils # 0.3 10*3/uL (0.0-0.87); Eosinophils % 3.5 % (0.00-10.9); Hematocrit 37.7 VOL% (35.7-47.0); Hemoglobin 12.1 GM/DL (12.0-16.0); Immature Granulocytes % 0.6 %; Immature Granulocytes Absolute 0.05 #; Lymphocytes # 1.8 10*3/uL (1.4-4.0); Mean Corpuscular HGB Conc 32.1 GM/DL (32-36); Mean Corpuscular Hemoglobin 31 PG (27-34); Mean Corpuscular Volume 97.9 FL (87-102); Mean Platelet Volume 9.9 FL (9.6-12.0); Monocytes # 0.6 10*3/uL (0.11-0.8); Monocytes % 6.5 % (1.7-12.7); Neutrophils # 6.2 10*3/uL (1.4-7.4); Neutrophils % 68.6 % (38.7-73.9); Platelet Count 217 T/CUMM (130-400); Red Blood Count 3.85 MC/CUMM (3.8-5.5); Red Cell Distribution Width 21.2 % (9.3-17.3)
[2017-10-16 04:31] LABS: Osmolality,Calculated 286.2 MOS/KG (273-304)
[2017-10-16] MEDS ORDERED: ENOXAPARIN 40 MG/0.4 ML SYRINGE ONE (04:48)
[2017-10-16] MEDS ORDERED: SODIUM POLYSTYRENE SULFATE 15 GM/60 ML BOTTLE ONE (04:49)
[2017-10-16] MEDS ORDERED: ENOXAPARIN 30 MG/0.3 ML SYRINGE ONE (04:49)
[2017-10-16 04:50] LABS: Potassium 6.8 MMOL/L (3.5-5.1)
[2017-10-16] MEDS: ENOXAPARIN 80 MG/0.8 ML SYRINGE SUBCUT SCH (05:06)
[2017-10-16] MEDS: SODIUM POLYSTYRENE SULFATE 15 GM/60 ML BOTTLE PO SCH ×4 (05:29→23:36)
[2017-10-16] MEDS: INSULIN LISPRO 100 UNIT/ML SUBCUT SCH ×3 (08:52→21:48)
[2017-10-17] MEDS: ONDANSETRON 4 MG/2 ML VIAL IV PRN ×2 (03:05→23:33)
[2017-10-17] MEDS: ENOXAPARIN 80 MG/0.8 ML SYRINGE SUBCUT SCH (06:03)
[2017-10-17 07:46] LABS: Calcium 10.7 MG/DL (8.5-10.1); Osmolality,Calculated 271.5 MOS/KG (273-304)
[2017-10-17 07:57] LABS: Potassium 6.2 MMOL/L (3.5-5.1)
[2017-10-17] MEDS: INSULIN LISPRO 100 UNIT/ML SUBCUT SCH ×4 (08:31→20:33)
[2017-10-17] MEDS: ESTROGENS (CONJ) 0.625 MG TABLET PO SCH (14:56)
[2017-10-17] MEDS: levETIRAcetam 500 MG TABLET PO SCH ×2 (14:56→20:32)
[2017-10-17] MEDS: PANTOPRAZOLE 40 MG TABLET PO SCH ×2 (14:57→20:32)
[2017-10-17] MEDS: OLANZapine 2.5 MG TABLET PO SCH ×2 (14:57→20:32)
[2017-10-17] MEDS: BUDESONIDE/FORMOTEROL 160-4.5 INHALER 6 GM INH SCH ×2 (16:24→20:37)
[2017-10-17] MEDS: CALCIUM ACETATE 667 MG CAPSULE PO SCH ×2 (17:06→20:32)
[2017-10-17] MEDS ORDERED: WARFARIN 7.5 MG TABLET PO SCH (18:00)
[2017-10-17] MEDS: rOPINIRole 1 MG TABLET PO SCH (20:32)
[2017-10-17] MEDS: ZALEPLON 5 MG CAPSULE PO SCH (20:32)
[2017-10-17] MEDS: MONTELUKAST 10 MG TABLET PO SCH (20:32)
[2017-10-17] MEDS: PRAVASTATIN 20 MG TABLET PO SCH (20:32)
[2017-10-18 06:11] LABS: INR 1.3; PT Patient Result 13.2 SECS
[2017-10-18] MEDS: ENOXAPARIN 80 MG/0.8 ML SYRINGE SUBCUT SCH (07:08)
[2017-10-18] MEDS: INSULIN LISPRO 100 UNIT/ML SUBCUT SCH ×4 (09:38→20:42)
[2017-10-18] MEDS: CALCIUM ACETATE 667 MG CAPSULE PO SCH ×4 (09:41→20:39)
[2017-10-18] MEDS: levETIRAcetam 500 MG TABLET PO SCH ×2 (09:41→20:45)
[2017-10-18] MEDS: ESTROGENS (CONJ) 0.625 MG TABLET PO SCH (09:42)
[2017-10-18] MEDS: OLANZapine 2.5 MG TABLET PO SCH ×2 (09:42→20:39)
[2017-10-18] MEDS: PANTOPRAZOLE 40 MG TABLET PO SCH ×2 (09:42→20:40)
[2017-10-18] MEDS: LEVOTHYROXINE 100 MCG TABLET PO SCH (09:42)
[2017-10-18] MEDS: CINACALCET 30 MG TABLET PO SCH (09:42)
[2017-10-18] MEDS: BUDESONIDE/FORMOTEROL 160-4.5 INHALER 6 GM INH SCH ×2 (09:43→20:45)
[2017-10-18 10:13] LABS: Calcium 10.9 MG/DL (8.5-10.1); Osmolality,Calculated 282.1 MOS/KG (273-304); Potassium 4.8 MMOL/L (3.5-5.1)
[2017-10-18] MEDS ORDERED: ENOXAPARIN 60 MG/0.6 ML SYRINGE SUBCUT SCH (11:30)
[2017-10-18] MEDS ORDERED: ACETAMINOPHEN 500 MG TABLET PO PRN (14:45)
[2017-10-18] MEDS ORDERED: WARFARIN 5 MG TABLET PO ONE (14:46)
[2017-10-18] MEDS ORDERED: WARFARIN 10 MG TABLET PO SCH (18:00)
[2017-10-18] MEDS ORDERED: WARFARIN 5 MG TABLET PO SCH (18:00)
[2017-10-18] MEDS: ONDANSETRON 4 MG/2 ML VIAL IV PRN (18:32)
[2017-10-18] MEDS: MONTELUKAST 10 MG TABLET PO SCH (20:39)
[2017-10-18] MEDS: rOPINIRole 1 MG TABLET PO SCH (20:39)
[2017-10-18] MEDS: ZALEPLON 5 MG CAPSULE PO SCH (20:39)
[2017-10-18] MEDS: PRAVASTATIN 20 MG TABLET PO SCH (20:40)
[2017-10-19] MEDS ORDERED: PROMETHAZINE 25 MG/1 ML VIAL IM PRN (01:20)
[2017-10-19] MEDS: ENOXAPARIN 80 MG/0.8 ML SYRINGE SUBCUT SCH (04:09)
[2017-10-19 05:21] LABS: INR 1.3; PT Patient Result 13.9 SECS
[2017-10-19] MEDS: levETIRAcetam 500 MG TABLET PO SCH ×2 (08:19→21:39)
[2017-10-19] MEDS: ESTROGENS (CONJ) 0.625 MG TABLET PO SCH (08:19)
[2017-10-19] MEDS: INSULIN LISPRO 100 UNIT/ML SUBCUT SCH ×4 (08:19→21:40)
[2017-10-19] MEDS: PANTOPRAZOLE 40 MG TABLET PO SCH ×2 (08:19→21:38)
[2017-10-19] MEDS: CALCIUM ACETATE 667 MG CAPSULE PO SCH ×4 (08:19→21:38)
[2017-10-19] MEDS: CINACALCET 30 MG TABLET PO SCH (08:20)
[2017-10-19] MEDS: BUDESONIDE/FORMOTEROL 160-4.5 INHALER 6 GM INH SCH ×2 (08:20→21:41)
[2017-10-19] MEDS: OLANZapine 2.5 MG TABLET PO SCH ×2 (08:20→21:39)
[2017-10-19] MEDS: LEVOTHYROXINE 100 MCG TABLET PO SCH (08:20)
[2017-10-19] MEDS ORDERED: WARFARIN 7.5 MG TABLET PO SCH (18:00)
[2017-10-19] MEDS: MONTELUKAST 10 MG TABLET PO SCH (21:38)
[2017-10-19] MEDS: ZALEPLON 5 MG CAPSULE PO SCH (21:38)
[2017-10-19] MEDS: ONDANSETRON 4 MG/2 ML VIAL IV PRN (21:38)
[2017-10-19] MEDS: rOPINIRole 1 MG TABLET PO SCH (21:38)
[2017-10-19] MEDS: PRAVASTATIN 20 MG TABLET PO SCH (21:39)
[2017-10-20 02:32] LABS: PT Patient Result 20.6 SECS
[2017-10-20 02:35] LABS: Basophils # 0.1 10*3/uL (0.0-0.2); Basophils % 0.9 % (0.0-0.8); Eosinophils # 0.2 10*3/uL (0.0-0.87); Eosinophils % 2.4 % (0.00-10.9); Hemoglobin 11.8 GM/DL (12.0-16.0); Immature Granulocytes % 0.5 %; Immature Granulocytes Absolute 0.04 #; Lymphocytes # 1.3 10*3/uL (1.4-4.0); Lymphocytes % 16.2 % (21.3-54.2); Mean Corpuscular HGB Conc 31.9 GM/DL (32-36); Mean Corpuscular Hemoglobin 31 PG (27-34); Mean Corpuscular Volume 97.6 FL (87-102); Mean Platelet Volume 10.7 FL (9.6-12.0); Monocytes # 0.6 10*3/uL (0.11-0.8); Monocytes % 7.7 % (1.7-12.7); Neutrophils # 5.8 10*3/uL (1.4-7.4); Neutrophils % 72.3 % (38.7-73.9); Platelet Count 210 T/CUMM (130-400); Red Blood Count 3.79 MC/CUMM (3.8-5.5); Red Cell Distribution Width 19.7 % (9.3-17.3)
[2017-10-20 03:08] LABS: Calcium 9.1 MG/DL (8.5-10.1); Potassium 4.9 MMOL/L (3.5-5.1)
[2017-10-20] MEDS: ENOXAPARIN 80 MG/0.8 ML SYRINGE SUBCUT SCH (05:57)
[2017-10-20] MEDS: OLANZapine 2.5 MG TABLET PO SCH ×2 (07:35→10:38)
[2017-10-20] MEDS: ESTROGENS (CONJ) 0.625 MG TABLET PO SCH ×2 (07:35→10:30)
[2017-10-20] MEDS: levETIRAcetam 500 MG TABLET PO SCH ×2 (07:36→10:29)
[2017-10-20] MEDS: LEVOTHYROXINE 100 MCG TABLET PO SCH ×2 (07:36→10:38)
[2017-10-20] MEDS: CALCIUM ACETATE 667 MG CAPSULE PO SCH ×4 (07:36→14:43)
[2017-10-20] MEDS: PANTOPRAZOLE 40 MG TABLET PO SCH ×2 (07:36→10:31)
[2017-10-20] MEDS: BUDESONIDE/FORMOTEROL 160-4.5 INHALER 6 GM INH SCH ×2 (07:38→10:31)
[2017-10-20] MEDS: INSULIN LISPRO 100 UNIT/ML SUBCUT SCH ×2 (08:29→14:43)
[2017-10-20] MEDS: CINACALCET 30 MG TABLET PO SCH (11:50)
[2017-10-20 12:15] VITALS: BP 89/54
== END 2017-10-20 17:13 | disposition home or self-care (01) | DRG 640 ==
LOC: EDUNIT# → EDBD → N.ED 20:10 → N.EDINP 23:30 → N.TELES 10-16 14:36
PROVIDERS: ADMIT Hospitalist; ATTEND Hospitalist

== ENCOUNTER 2017-11-19 06:31 | Inpatient (IN) ==
[2017-11-19] MEDS ORDERED: ONDANSETRON 4 MG/2 ML VIAL IV STA (07:11)
[2017-11-19] MEDS ORDERED: HYDROmorphone 2 MG/1 ML VIAL IV STA (07:11)
[2017-11-19 07:37] LABS: Blood Urea Nitrogen 75 MG/DL (7-18); Calcium 9.4 MG/DL (8.5-10.1); Glucose 83 MG/DL (74-106); Osmolality,Calculated 284.5 MOS/KG (273-304); Potassium 5.5 MMOL/L (3.5-5.1); Sodium 132 MMOL/L (136-145); Troponin I Only < 0.015 NG/ML (0.00-0.045)
[2017-11-19] MEDS ORDERED: ACETAMINOPHEN 325 MG TABLET PO PRN (09:51)
[2017-11-19 12:55] LABS: INR 1.5; PT Patient Result 15.3 SECS
[2017-11-19 13:03] LABS: Calcium 9.2 MG/DL (8.5-10.1); Osmolality,Calculated 284.8 MOS/KG (273-304)
[2017-11-19] MEDS ORDERED: NITROGLYCERIN SL 0.4 MG TABLET SL ONE ×2 (21:00→21:56)
[2017-11-19] MEDS ORDERED: ALUM/MAG/SIMETH/LIDO VISC 1:1 30 ML BOTTLE PO ONE ×2 (21:06→21:07)
[2017-11-19] MEDS ORDERED: MORPHINE 2 MG/1 ML SYRINGE IM ONE (21:08)
[2017-11-19] MEDS: PANTOPRAZOLE 40 MG VIAL IV SCH (21:48)
[2017-11-19 21:54] LABS: Albumin 3.9 G/DL (3.4-5.0); Bilirubin,Total 1.3 MG/DL (0.2-1.0); Calcium 9.2 MG/DL (8.5-10.1); Osmolality,Calculated 279.1 MOS/KG (273-304); Total Protein 7.5 G/DL (6.4-8.3)
[2017-11-20 04:08] LABS: Calcium 9.3 MG/DL (8.5-10.1); Osmolality,Calculated 279.4 MOS/KG (273-304); Potassium 4.5 MMOL/L (3.5-5.1)
[2017-11-20 04:22] LABS: Basophils # 0.1 10*3/uL (0.0-0.2); Basophils % 0.5 % (0.0-0.8); Eosinophils # 0.2 10*3/uL (0.0-0.87); Eosinophils % 0.9 % (0.00-10.9); Hemoglobin 12.9 GM/DL (12.0-16.0); Immature Granulocytes % 1.9 %; Immature Granulocytes Absolute 0.33 #; Lymphocytes # 1.8 10*3/uL (1.4-4.0); Mean Corpuscular HGB Conc 33.1 GM/DL (32-36); Mean Corpuscular Hemoglobin 32 PG (27-34); Mean Corpuscular Volume 97.5 FL (87-102); Mean Platelet Volume 10.2 FL (9.6-12.0); Monocytes # 1.1 10*3/uL (0.11-0.8); Monocytes % 5.9 % (1.7-12.7); Neutrophils # 14.4 10*3/uL (1.4-7.4); Neutrophils % 80.8 % (38.7-73.9); Platelet Count 216 T/CUMM (130-400); White Blood Count 17.8 T/CUMM (4-12)
[2017-11-20] MEDS: PANTOPRAZOLE 40 MG VIAL IV SCH (09:10)
[2017-11-20] MEDS ORDERED: CYCLOBENZAPRINE 10 MG TABLET PO PRN (09:19)
[2017-11-20] MEDS ORDERED: BENZOCAINE/MENTHOL LOZENGE 18/BOX PO PRN (09:19)
[2017-11-20 10:20] LABS: Basophils # 0.1 10*3/uL (0.0-0.2); Basophils % 0.5 % (0.0-0.8); Eosinophils # 0.2 10*3/uL (0.0-0.87); Eosinophils % 1.5 % (0.00-10.9); Hematocrit 36.2 VOL% (35.7-47.0); Immature Granulocytes % 0.9 %; Immature Granulocytes Absolute 0.12 #; Lymphocytes # 1.3 10*3/uL (1.4-4.0); Lymphocytes % 9.6 % (21.3-54.2); Mean Corpuscular HGB Conc 33.1 GM/DL (32-36); Mean Corpuscular Hemoglobin 32 PG (27-34); Mean Corpuscular Volume 97.6 FL (87-102); Mean Platelet Volume 10.4 FL (9.6-12.0); Monocytes % 7.5 % (1.7-12.7); Neutrophils # 11.1 10*3/uL (1.4-7.4); Platelet Count 174 T/CUMM (130-400); Red Blood Count 3.71 MC/CUMM (3.8-5.5); Red Cell Distribution Width 20.2 % (9.3-17.3); White Blood Count 13.8 T/CUMM (4-12)
[2017-11-20] MEDS: CALCIUM ACETATE 667 MG CAPSULE PO SCH ×2 (12:05→17:44)
[2017-11-20] MEDS: ONDANSETRON 4 MG/2 ML VIAL IV PRN ×2 (14:39→23:25)
[2017-11-20] MEDS ORDERED: SODIUM CHLORIDE 0.9% 250 ML IV ONE (16:09)
[2017-11-20] MEDS: WARFARIN 7.5 MG TABLET PO SCH (17:43)
[2017-11-20] MEDS ORDERED: MIDODRINE 5 MG TABLET PO ONE (18:49)
[2017-11-20] MEDS ORDERED: MIDODRINE 5 MG TABLET PO SCH (21:00)
[2017-11-20] MEDS ORDERED: NON-FORMULARY MEDICATION (Ferric Citrate [Auryxia] 420 MG) PO SCH (21:00)
[2017-11-20] MEDS: PRAVASTATIN 20 MG TABLET PO SCH (22:12)
[2017-11-20] MEDS: RANOLAZINE 500 MG TABLET PO SCH (22:12)
[2017-11-20] MEDS: rOPINIRole 1 MG TABLET PO SCH (22:12)
[2017-11-20] MEDS: PANTOPRAZOLE 40 MG TABLET PO SCH (22:13)
[2017-11-20] MEDS: OLANZapine 2.5 MG TABLET PO SCH (22:13)
[2017-11-20] MEDS: levETIRAcetam 500 MG TABLET PO SCH (22:13)
[2017-11-20] MEDS: BUDESONIDE/FORMOTEROL 160-4.5 INHALER 6 GM INH SCH (22:13)
[2017-11-20] MEDS: TEMAZEPAM 15 MG CAPSULE PO SCH (22:13)
[2017-11-21 07:05] LABS: Albumin 3.6 G/DL (3.4-5.0); Osmolality,Calculated 286.5 MOS/KG (273-304); Potassium 5.1 MMOL/L (3.5-5.1)
[2017-11-21] MEDS ORDERED: HEPARIN 1,000 UNIT/1 ML VIAL ONE (08:48)
[2017-11-21] MEDS ORDERED: MIDODRINE 5 MG TABLET PO SCH (09:00)
[2017-11-21] MEDS ORDERED: NON-FORMULARY MEDICATION (Umeclidinium Bromide [Incruse Ellipta] 1 PUFF) INH SCH (09:00)
[2017-11-21] MEDS: BUDESONIDE/FORMOTEROL 160-4.5 INHALER 6 GM INH SCH ×2 (09:00→21:25)
[2017-11-21] MEDS: RANOLAZINE 500 MG TABLET PO SCH ×2 (11:25→21:24)
[2017-11-21] MEDS: CINACALCET 30 MG TABLET PO SCH (11:25)
[2017-11-21] MEDS: CALCIUM ACETATE 667 MG CAPSULE PO SCH ×3 (11:25→17:21)
[2017-11-21] MEDS: LEVOTHYROXINE 100 MCG TABLET PO SCH (11:25)
[2017-11-21] MEDS: levETIRAcetam 500 MG TABLET PO SCH ×2 (11:26→21:24)
[2017-11-21] MEDS: PANTOPRAZOLE 40 MG TABLET PO SCH ×2 (11:26→21:23)
[2017-11-21] MEDS: sitaGLIPtin 25 MG TABLET PO SCH (11:29)
[2017-11-21] MEDS: OLANZapine 2.5 MG TABLET PO SCH ×2 (11:42→21:23)
[2017-11-21] MEDS: MIDODRINE 5 MG TABLET PO SCH ×3 (15:26→21:23)
[2017-11-21] MEDS ORDERED: WARFARIN 5 MG TABLET PO SCH (18:00)
[2017-11-21] MEDS: PRAVASTATIN 20 MG TABLET PO SCH (21:23)
[2017-11-21] MEDS: TEMAZEPAM 15 MG CAPSULE PO SCH (21:24)
[2017-11-21] MEDS: rOPINIRole 1 MG TABLET PO SCH (21:24)
[2017-11-22 06:13] LABS: Basophils % 0.5 % (0.0-0.8); Eosinophils # 0.2 10*3/uL (0.0-0.87); Eosinophils % 2.6 % (0.00-10.9); Hematocrit 30.3 VOL% (35.7-47.0); Immature Granulocytes % 0.7 %; Immature Granulocytes Absolute 0.06 #; Lymphocytes # 1.6 10*3/uL (1.4-4.0); Lymphocytes % 18.9 % (21.3-54.2); Mean Corpuscular Hemoglobin 32 PG (27-34); Mean Corpuscular Volume 96.8 FL (87-102); Mean Platelet Volume 10.7 FL (9.6-12.0); Monocytes # 0.8 10*3/uL (0.11-0.8); Neutrophils # 5.5 10*3/uL (1.4-7.4); Neutrophils % 67.3 % (38.7-73.9); Platelet Count 164 T/CUMM (130-400); Red Blood Count 3.13 MC/CUMM (3.8-5.5); Red Cell Distribution Width 19.3 % (9.3-17.3); White Blood Count 8.2 T/CUMM (4-12)
[2017-11-22 06:28] LABS: INR 2.2; PT Patient Result 22.1 SECS
[2017-11-22 06:46] LABS: Albumin 3.2 G/DL (3.4-5.0); Bilirubin,Total 0.6 MG/DL (0.2-1.0); Calcium 8.1 MG/DL (8.5-10.1); Osmolality,Calculated 283.1 MOS/KG (273-304); Potassium 4.1 MMOL/L (3.5-5.1); Total Protein 6.4 G/DL (6.4-8.3)
[2017-11-22] MEDS: sitaGLIPtin 25 MG TABLET PO SCH (08:38)
[2017-11-22] MEDS: MIDODRINE 5 MG TABLET PO SCH ×2 (08:38→17:25)
[2017-11-22] MEDS: CALCIUM ACETATE 667 MG CAPSULE PO SCH ×3 (08:38→17:24)
[2017-11-22] MEDS: PANTOPRAZOLE 40 MG TABLET PO SCH (08:38)
[2017-11-22] MEDS: CINACALCET 30 MG TABLET PO SCH (08:38)
[2017-11-22] MEDS: levETIRAcetam 500 MG TABLET PO SCH (08:38)
[2017-11-22] MEDS: LEVOTHYROXINE 100 MCG TABLET PO SCH (08:38)
[2017-11-22] MEDS: RANOLAZINE 500 MG TABLET PO SCH (08:42)
[2017-11-22] MEDS: OLANZapine 2.5 MG TABLET PO SCH (08:42)
[2017-11-22] MEDS: BUDESONIDE/FORMOTEROL 160-4.5 INHALER 6 GM INH SCH (08:44)
[2017-11-22] MEDS ORDERED: ONDANSETRON 4 MG TABLET PO ONE (14:23)
[2017-11-22 17:17] VITALS: BP 95/55
[2017-11-22] MEDS: WARFARIN 7.5 MG TABLET PO SCH (17:25)
== END 2017-11-22 18:32 | disposition home or self-care (01) | DRG 628 ==
LOC: EDBD → EDUNIT# → N.ED 06:31 → N.EDINP 09:51 → N.TELEN 14:34
PROVIDERS: ADMIT Internal Medicine Geriatric Medicine; ATTEND Internal Medicine Geriatric Medicine

== ENCOUNTER 2017-12-10 14:54 | Inpatient (IN) ==
[2017-12-10] MEDS ORDERED: MORPHINE 2 MG/1 ML SYRINGE IV PRN (15:29)
[2017-12-10 15:37] LABS: Basophils # 0.1 10*3/uL (0.0-0.2); Basophils % 0.7 % (0.0-0.8); Eosinophils # 0.1 10*3/uL (0.0-0.87); Eosinophils % 0.9 % (0.00-10.9); Hematocrit 27.9 VOL% (35.7-47.0); Immature Granulocytes % 0.7 %; Immature Granulocytes Absolute 0.08 #; Lymphocytes # 0.7 10*3/uL (1.4-4.0); Lymphocytes % 6.4 % (21.3-54.2); Mean Corpuscular HGB Conc 32.3 GM/DL (32-36); Mean Corpuscular Hemoglobin 32 PG (27-34); Mean Platelet Volume 10.3 FL (9.6-12.0); Monocytes # 0.6 10*3/uL (0.11-0.8); Monocytes % 5.2 % (1.7-12.7); NRBC # 0.04 10*3/uL; Neutrophils # 9.2 10*3/uL (1.4-7.4); Neutrophils % 86.1 % (38.7-73.9); Platelet Count 268 T/CUMM (130-400); Red Blood Count 2.79 MC/CUMM (3.8-5.5); Red Cell Distribution Width 19.3 % (9.3-17.3); White Blood Count 10.7 T/CUMM (4-12)
[2017-12-10 15:43] LABS: INR 1.9; PT Patient Result 19.4 SECS; Partial Thromboplastin Time 30.6 SECS (0-40)
[2017-12-10 16:14] LABS: Albumin 3.8 G/DL (3.4-5.0); Bilirubin,Total 1.1 MG/DL (0.2-1.0); Calcium 8.7 MG/DL (8.5-10.1); Osmolality,Calculated 286.4 MOS/KG (273-304); Potassium 4.8 MMOL/L (3.5-5.1); Total Protein 6.7 G/DL (6.4-8.3)
[2017-12-10] MEDS ORDERED: BISACODYL 5 MG TABLET PO PRN (17:22)
[2017-12-10] MEDS ORDERED: CALCIUM ACETATE 667 MG CAPSULE PO SCH (17:30)
[2017-12-10] MEDS ORDERED: HEPARIN DRIP 25,000 UNITS/500 ML PREMIX IV SCH (17:30)
[2017-12-10] MEDS ORDERED: WARFARIN 5 MG TABLET PO SCH (17:30)
[2017-12-10 17:51] LABS: Troponin I Only 0.033 NG/ML (0.00-0.045)
[2017-12-10] MEDS ORDERED: NITROGLYCERIN 2% OINT 1 INCH/GM PACK TOP ONE (18:17)
[2017-12-10] MEDS: NITROGLYCERIN 2% OINT 1 INCH/GM PACK TOP SCH (18:21)
[2017-12-10] MEDS ORDERED: WARFARIN 5 MG TABLET ONE (19:47)
[2017-12-10] MEDS: ALBUTEROL/IPRATROPIUM 3 ML NEB RESP TX SCH ×2 (20:00→23:30)
[2017-12-10] MEDS ORDERED: Ferric Citrate [Auryxia] 420 MG PO SCH (21:00)
[2017-12-10] MEDS ORDERED: ENOXAPARIN 100 MG/ML SYRINGE SUBCUT STA (23:28)
[2017-12-10] MEDS ORDERED: ENOXAPARIN 80 MG/0.8 ML SYRINGE SUBCUT ONE (23:34)
[2017-12-11] MEDS: rOPINIRole 1 MG TABLET PO SCH ×2 (00:29→21:07)
[2017-12-11] MEDS: OLANZapine 2.5 MG TABLET PO SCH ×3 (00:29→21:07)
[2017-12-11] MEDS: guaiFENesin/DM ER 600-30 MG TABLET PO PRN ×3 (00:29→21:06)
[2017-12-11] MEDS: predniSONE 10 MG TABLET PO SCH ×3 (00:29→21:07)
[2017-12-11] MEDS: PANTOPRAZOLE 40 MG TABLET PO SCH ×3 (00:30→21:07)
[2017-12-11] MEDS: NEBIVOLOL 5 MG TABLET PO SCH ×2 (00:30→08:32)
[2017-12-11] MEDS: PRAVASTATIN 20 MG TABLET PO SCH ×2 (00:30→21:07)
[2017-12-11] MEDS: RANOLAZINE 500 MG TABLET PO SCH ×3 (00:30→21:06)
[2017-12-11] MEDS: levETIRAcetam 500 MG TABLET PO SCH ×3 (00:30→21:07)
[2017-12-11] MEDS: BUDESONIDE/FORMOTEROL 160-4.5 INHALER 6 GM INH SCH ×3 (00:33→21:07)
[2017-12-11] MEDS: NITROGLYCERIN 2% OINT 1 INCH/GM PACK TOP SCH ×3 (00:34→11:58)
[2017-12-11 01:57] LABS: Basophils # 0.1 10*3/uL (0.0-0.2); Basophils % 0.4 % (0.0-0.8); Eosinophils % 0.2 % (0.00-10.9); Hematocrit 27.1 VOL% (35.7-47.0); Hemoglobin 8.8 GM/DL (12.0-16.0); Immature Granulocytes % 0.9 %; Immature Granulocytes Absolute 0.11 #; Lymphocytes # 0.5 10*3/uL (1.4-4.0); Lymphocytes % 4.1 % (21.3-54.2); Mean Corpuscular HGB Conc 32.5 GM/DL (32-36); Mean Corpuscular Hemoglobin 32 PG (27-34); Mean Corpuscular Volume 98.2 FL (87-102); Mean Platelet Volume 10.4 FL (9.6-12.0); Monocytes # 0.5 10*3/uL (0.11-0.8); Monocytes % 3.7 % (1.7-12.7); NRBC # 0.03 10*3/uL; Neutrophils # 11.6 10*3/uL (1.4-7.4); Neutrophils % 90.7 % (38.7-73.9); Platelet Count 261 T/CUMM (130-400); Red Blood Count 2.76 MC/CUMM (3.8-5.5); Red Cell Distribution Width 19.4 % (9.3-17.3); White Blood Count 12.8 T/CUMM (4-12)
[2017-12-11 02:10] LABS: INR 2.7
[2017-12-11 02:14] LABS: PT Patient Result 27.9 SECS
[2017-12-11 02:18] LABS: Band Neutrophils 12 % (0-10); Lymphocytes 1 % (20-55); Segmented Neutrophils 83 % (50-85); Total Cells Counted 100
[2017-12-11 02:24] LABS: Hypochromasia 1+; Ovalocytes 2+; Platelet Estimate Normal
[2017-12-11 02:25] LABS: Polychromasia 1+
[2017-12-11 02:28] LABS: Calcium 8.6 MG/DL (8.5-10.1); Osmolality,Calculated 288.7 MOS/KG (273-304); Risk Ratio 3.24; VLDL CHOLESTEROL 42.2 MG/DL
[2017-12-11 02:33] LABS: Troponin I Only 0.069 NG/ML (0.00-0.045)
[2017-12-11] MEDS: ALBUTEROL/IPRATROPIUM 3 ML NEB RESP TX SCH ×6 (03:30→22:43)
[2017-12-11] MEDS: LEVOTHYROXINE 100 MCG TABLET PO SCH (06:54)
[2017-12-11] MEDS: sitaGLIPtin 25 MG TABLET PO SCH (08:32)
[2017-12-11] MEDS: CALCIUM ACETATE 667 MG CAPSULE PO SCH ×3 (08:32→17:08)
[2017-12-11] MEDS ORDERED: NEBIVOLOL 10 MG TABLET PO SCH ×2 (09:00→21:00)
[2017-12-11] MEDS ORDERED: LEVOFLOXACIN INJ 500 MG in PREMIX 1 EACH IV ONE (13:00)
[2017-12-11] MEDS: CINACALCET 30 MG TABLET PO SCH (17:08)
[2017-12-11] MEDS ORDERED: WARFARIN 7.5 MG TABLET PO SCH (17:15)
[2017-12-11] MEDS ORDERED: clonazePAM 0.5 MG TABLET PO PRN (18:10)
[2017-12-11] MEDS: BENZONATATE 100 MG CAPSULE PO PRN (21:06)
[2017-12-11] MEDS: ZALEPLON 5 MG CAPSULE PO PRN (21:07)
[2017-12-12] MEDS: ACETAMINOPHEN 325 MG TABLET PO PRN ×2 (00:40→10:45)
[2017-12-12] MEDS: ALBUTEROL/IPRATROPIUM 3 ML NEB RESP TX SCH ×6 (02:19→23:58)
[2017-12-12] MEDS: BENZONATATE 100 MG CAPSULE PO PRN ×3 (03:00→21:52)
[2017-12-12] MEDS: LEVOTHYROXINE 100 MCG TABLET PO SCH (06:28)
[2017-12-12 07:14] LABS: Basophils % 0.5 % (0.0-0.8); Eosinophils % 0.2 % (0.00-10.9); Hematocrit 26.2 VOL% (35.7-47.0); Hemoglobin 8.5 GM/DL (12.0-16.0); Immature Granulocytes % 0.9 %; Immature Granulocytes Absolute 0.08 #; Lymphocytes # 0.6 10*3/uL (1.4-4.0); Lymphocytes % 6.8 % (21.3-54.2); Mean Corpuscular HGB Conc 32.4 GM/DL (32-36); Mean Corpuscular Hemoglobin 32 PG (27-34); Mean Platelet Volume 10.8 FL (9.6-12.0); Monocytes # 0.5 10*3/uL (0.11-0.8); Monocytes % 5.4 % (1.7-12.7); NRBC # 0.06 10*3/uL; Neutrophils # 7.3 10*3/uL (1.4-7.4); Neutrophils % 86.2 % (38.7-73.9); Platelet Count 219 T/CUMM (130-400); Red Cell Distribution Width 19.7 % (9.3-17.3); White Blood Count 8.5 T/CUMM (4-12)
[2017-12-12 07:28] LABS: Giant Platelets Few; Hypochromasia 1+; Ovalocytes Slight; Platelet Estimate Adequate
[2017-12-12 07:32] LABS: Calcium 8.4 MG/DL (8.5-10.1); Osmolality,Calculated 280.2 MOS/KG (273-304); Potassium 4.9 MMOL/L (3.5-5.1)
[2017-12-12 08:01] LABS: PT Patient Result 64.2 SECS
[2017-12-12 08:03] LABS: INR 6.5
[2017-12-12] MEDS: RANOLAZINE 500 MG TABLET PO SCH ×2 (09:00→21:48)
[2017-12-12] MEDS: NEBIVOLOL 5 MG TABLET PO SCH (09:01)
[2017-12-12] MEDS: CALCIUM ACETATE 667 MG CAPSULE PO SCH ×3 (09:01→17:35)
[2017-12-12] MEDS: OLANZapine 2.5 MG TABLET PO SCH ×2 (09:01→21:48)
[2017-12-12] MEDS: PANTOPRAZOLE 40 MG TABLET PO SCH ×2 (09:01→21:48)
[2017-12-12] MEDS: sitaGLIPtin 25 MG TABLET PO SCH (09:01)
[2017-12-12] MEDS: levETIRAcetam 500 MG TABLET PO SCH ×2 (09:01→21:48)
[2017-12-12] MEDS: predniSONE 10 MG TABLET PO SCH ×2 (09:01→21:48)
[2017-12-12] MEDS: BUDESONIDE/FORMOTEROL 160-4.5 INHALER 6 GM INH SCH ×2 (09:02→21:48)
[2017-12-12] MEDS ORDERED: PHYTONADIONE 5 MG/5 ML ORAL.SYR PO ONE (10:23)
[2017-12-12] MEDS: CINACALCET 30 MG TABLET PO SCH (17:35)
[2017-12-12] MEDS: ONDANSETRON 4 MG/2 ML VIAL IV PRN (20:05)
[2017-12-12] MEDS: ZALEPLON 5 MG CAPSULE PO PRN (21:47)
[2017-12-12] MEDS: PRAVASTATIN 20 MG TABLET PO SCH (21:48)
[2017-12-12] MEDS: rOPINIRole 1 MG TABLET PO SCH (21:49)
[2017-12-12] MEDS: guaiFENesin/DM ER 600-30 MG TABLET PO PRN (23:05)
[2017-12-13] MEDS: ALBUTEROL/IPRATROPIUM 3 ML NEB RESP TX SCH ×6 (03:47→23:53)
[2017-12-13] MEDS: LEVOTHYROXINE 100 MCG TABLET PO SCH (06:53)
[2017-12-13] MEDS: ACETAMINOPHEN 325 MG TABLET PO PRN ×2 (06:59→17:44)
[2017-12-13 07:08] LABS: Basophils % 0.2 % (0.0-0.8); Eosinophils % 0.1 % (0.00-10.9); Hematocrit 27.1 VOL% (35.7-47.0); Immature Granulocytes % 1.7 %; Immature Granulocytes Absolute 0.23 #; Lymphocytes # 0.9 10*3/uL (1.4-4.0); Lymphocytes % 6.9 % (21.3-54.2); Mean Corpuscular HGB Conc 33.2 GM/DL (32-36); Mean Corpuscular Hemoglobin 32 PG (27-34); Mean Corpuscular Volume 96.8 FL (87-102); Mean Platelet Volume 11.2 FL (9.6-12.0); Monocytes # 0.9 10*3/uL (0.11-0.8); Monocytes % 6.9 % (1.7-12.7); NRBC # 0.17 10*3/uL; Neutrophils # 11.2 10*3/uL (1.4-7.4); Neutrophils % 84.2 % (38.7-73.9); Platelet Count 186 T/CUMM (130-400); Red Cell Distribution Width 19.3 % (9.3-17.3); White Blood Count 13.3 T/CUMM (4-12)
[2017-12-13 07:20] LABS: INR 3.4
[2017-12-13 07:21] LABS: PT Patient Result 34.8 SECS
[2017-12-13 07:25] LABS: Calcium 7.6 MG/DL (8.5-10.1); Osmolality,Calculated 287.5 MOS/KG (273-304); Potassium 5.9 MMOL/L (3.5-5.1)
[2017-12-13] MEDS: ONDANSETRON 4 MG/2 ML VIAL IV PRN ×2 (10:03→22:07)
[2017-12-13] MEDS ORDERED: LEVOFLOXACIN INJ 250 MG in PREMIX 1 EACH IV SCH (13:00)
[2017-12-13] MEDS: CALCIUM ACETATE 667 MG CAPSULE PO SCH ×2 (15:37→17:44)
[2017-12-13] MEDS: PANTOPRAZOLE 40 MG TABLET PO SCH ×2 (15:38→22:00)
[2017-12-13] MEDS: predniSONE 10 MG TABLET PO SCH ×2 (15:38→22:01)
[2017-12-13] MEDS: levETIRAcetam 500 MG TABLET PO SCH ×2 (15:38→22:00)
[2017-12-13] MEDS: OLANZapine 2.5 MG TABLET PO SCH ×2 (15:39→22:08)
[2017-12-13] MEDS: RANOLAZINE 500 MG TABLET PO SCH ×2 (15:39→22:00)
[2017-12-13] MEDS: BUDESONIDE/FORMOTEROL 160-4.5 INHALER 6 GM INH SCH ×2 (15:39→22:00)
[2017-12-13] MEDS: NEBIVOLOL 5 MG TABLET PO SCH (15:51)
[2017-12-13] MEDS: sitaGLIPtin 25 MG TABLET PO SCH (15:51)
[2017-12-13] MEDS: CINACALCET 30 MG TABLET PO SCH (17:44)
[2017-12-13] MEDS: BENZONATATE 100 MG CAPSULE PO PRN (17:58)
[2017-12-13] MEDS ORDERED: WARFARIN 5 MG TABLET PO SCH (18:00)
[2017-12-13] MEDS: ZALEPLON 5 MG CAPSULE PO PRN (22:00)
[2017-12-13] MEDS: guaiFENesin/DM ER 600-30 MG TABLET PO PRN (22:00)
[2017-12-13] MEDS: rOPINIRole 1 MG TABLET PO SCH (22:00)
[2017-12-13] MEDS: PRAVASTATIN 20 MG TABLET PO SCH (22:00)
[2017-12-14] MEDS: BENZONATATE 100 MG CAPSULE PO PRN ×2 (01:58→09:07)
[2017-12-14] MEDS: ALBUTEROL/IPRATROPIUM 3 ML NEB RESP TX SCH ×6 (04:30→23:57)
[2017-12-14 05:07] LABS: Basophils % 0.5 % (0.0-0.8); Eosinophils % 0.4 % (0.00-10.9); Hematocrit 28.9 VOL% (35.7-47.0); Immature Granulocytes % 2.4 %; Lymphocytes # 0.9 10*3/uL (1.4-4.0); Lymphocytes % 10.5 % (21.3-54.2); Mean Corpuscular HGB Conc 31.1 GM/DL (32-36); Mean Corpuscular Hemoglobin 31 PG (27-34); Mean Corpuscular Volume 100.3 FL (87-102); Mean Platelet Volume 11.3 FL (9.6-12.0); Monocytes # 0.5 10*3/uL (0.11-0.8); Monocytes % 6.1 % (1.7-12.7); NRBC # 0.22 10*3/uL; Neutrophils # 6.6 10*3/uL (1.4-7.4); Neutrophils % 80.1 % (38.7-73.9); Platelet Count 168 T/CUMM (130-400); Red Blood Count 2.88 MC/CUMM (3.8-5.5); Red Cell Distribution Width 18.9 % (9.3-17.3); White Blood Count 8.3 T/CUMM (4-12)
[2017-12-14 05:12] LABS: INR 1.6; PT Patient Result 16.9 SECS
[2017-12-14 05:35] LABS: Calcium 7.9 MG/DL (8.5-10.1); Osmolality,Calculated 280.2 MOS/KG (273-304)
[2017-12-14 05:44] LABS: Anisocytosis 1+; Band Neutrophils 7 % (0-10); Lymphocytes 6 % (20-55); Macrocytosis 3+; Nucleated Red Blood Cells 1 (0-5); Segmented Neutrophils 86 % (50-85); Total Cells Counted 100
[2017-12-14 05:45] LABS: Platelet Estimate Normal
[2017-12-14] MEDS: LEVOTHYROXINE 100 MCG TABLET PO SCH (06:44)
[2017-12-14] MEDS: RANOLAZINE 500 MG TABLET PO SCH ×2 (09:03→21:03)
[2017-12-14] MEDS: PANTOPRAZOLE 40 MG TABLET PO SCH ×2 (09:03→21:04)
[2017-12-14] MEDS: sitaGLIPtin 25 MG TABLET PO SCH (09:03)
[2017-12-14] MEDS: CALCIUM ACETATE 667 MG CAPSULE PO SCH ×3 (09:03→17:08)
[2017-12-14] MEDS: levETIRAcetam 500 MG TABLET PO SCH ×2 (09:03→21:04)
[2017-12-14] MEDS: predniSONE 10 MG TABLET PO SCH ×2 (09:03→21:04)
[2017-12-14] MEDS: NEBIVOLOL 5 MG TABLET PO SCH (09:04)
[2017-12-14] MEDS: OLANZapine 2.5 MG TABLET PO SCH ×2 (09:07→21:03)
[2017-12-14] MEDS: ACETAMINOPHEN 325 MG TABLET PO PRN (09:07)
[2017-12-14] MEDS: BUDESONIDE/FORMOTEROL 160-4.5 INHALER 6 GM INH SCH ×2 (09:08→21:07)
[2017-12-14] MEDS: HEPARIN DRIP 25,000 UNITS/500 ML PREMIX IV SCH (11:06)
[2017-12-14] MEDS ORDERED: AZTREONAM 2,000 MG in SYRINGE 1 EACH IV ONE (16:00)
[2017-12-14] MEDS: ONDANSETRON 4 MG/2 ML VIAL IV PRN ×2 (17:05→22:37)
[2017-12-14] MEDS: CINACALCET 30 MG TABLET PO SCH (17:08)
[2017-12-14] MEDS ORDERED: WARFARIN 7.5 MG TABLET PO SCH (18:00)
[2017-12-14] MEDS ORDERED: guaiFENesin/DM ER 600-30 MG TABLET PO SCH (21:00)
[2017-12-14] MEDS: rOPINIRole 1 MG TABLET PO SCH (21:03)
[2017-12-14] MEDS: ZALEPLON 5 MG CAPSULE PO PRN (21:03)
[2017-12-14] MEDS: guaiFENesin/DM ER 600-30 MG TABLET PO SCH (21:03)
[2017-12-14] MEDS: PRAVASTATIN 20 MG TABLET PO SCH (21:04)
[2017-12-14] MEDS: AZTREONAM 500 MG in SYRINGE 1 EACH IV SCH (21:20)
[2017-12-15] MEDS: ALBUTEROL/IPRATROPIUM 3 ML NEB RESP TX SCH ×5 (03:37→19:00)
[2017-12-15] MEDS: AZTREONAM 500 MG in SYRINGE 1 EACH IV SCH ×4 (03:53→22:19)
[2017-12-15 05:04] LABS: INR 2.2; PT Patient Result 22.1 SECS
[2017-12-15 05:09] LABS: Basophils % 0.3 % (0.0-0.8); Eosinophils % 0.2 % (0.00-10.9); Hematocrit 27.2 VOL% (35.7-47.0); Hemoglobin 8.4 GM/DL (12.0-16.0); Immature Granulocytes % 2.8 %; Immature Granulocytes Absolute 0.33 #; Lymphocytes # 1.4 10*3/uL (1.4-4.0); Mean Corpuscular HGB Conc 30.9 GM/DL (32-36); Mean Corpuscular Hemoglobin 31 PG (27-34); Mean Corpuscular Volume 99.6 FL (87-102); Mean Platelet Volume 11.7 FL (9.6-12.0); Monocytes % 8.3 % (1.7-12.7); NRBC # 0.55 10*3/uL; Neutrophils # 9.2 10*3/uL (1.4-7.4); Neutrophils % 76.4 % (38.7-73.9); Platelet Count 176 T/CUMM (130-400); Red Blood Count 2.73 MC/CUMM (3.8-5.5); Red Cell Distribution Width 19.1 % (9.3-17.3)
[2017-12-15 05:33] LABS: Calcium 7.7 MG/DL (8.5-10.1); Osmolality,Calculated 284.5 MOS/KG (273-304); Potassium 5.1 MMOL/L (3.5-5.1)
[2017-12-15] MEDS: LEVOTHYROXINE 100 MCG TABLET PO SCH (06:08)
[2017-12-15 06:45] LABS: Anisocytosis 1+; Hypochromasia 1+; Polychromasia Few
[2017-12-15 06:46] LABS: Acanthocytes Few; Platelet Estimate Normal
[2017-12-15] MEDS: CALCIUM ACETATE 667 MG CAPSULE PO SCH ×3 (09:00→17:08)
[2017-12-15] MEDS: guaiFENesin/DM ER 600-30 MG TABLET PO SCH ×2 (09:00→21:35)
[2017-12-15] MEDS: sitaGLIPtin 25 MG TABLET PO SCH (09:00)
[2017-12-15] MEDS: predniSONE 10 MG TABLET PO SCH ×2 (09:00→21:36)
[2017-12-15] MEDS: OLANZapine 2.5 MG TABLET PO SCH ×2 (09:01→21:36)
[2017-12-15] MEDS: levETIRAcetam 500 MG TABLET PO SCH ×2 (09:01→21:36)
[2017-12-15] MEDS: RANOLAZINE 500 MG TABLET PO SCH ×2 (09:01→21:42)
[2017-12-15] MEDS: NEBIVOLOL 5 MG TABLET PO SCH (09:01)
[2017-12-15] MEDS: PANTOPRAZOLE 40 MG TABLET PO SCH ×2 (09:01→21:36)
[2017-12-15] MEDS: BUDESONIDE/FORMOTEROL 160-4.5 INHALER 6 GM INH SCH ×2 (09:06→21:37)
[2017-12-15] MEDS ORDERED: LEVOFLOXACIN 500 MG TABLET PO ONE (11:00)
[2017-12-15] MEDS: HEPARIN DRIP 25,000 UNITS/500 ML PREMIX IV SCH (11:05)
[2017-12-15] MEDS: CINACALCET 30 MG TABLET PO SCH (17:08)
[2017-12-15] MEDS ORDERED: WARFARIN 5 MG TABLET PO SCH (18:00)
[2017-12-15] MEDS: rOPINIRole 1 MG TABLET PO SCH (21:35)
[2017-12-15] MEDS: PRAVASTATIN 20 MG TABLET PO SCH (21:36)
[2017-12-16] MEDS: ONDANSETRON 4 MG/2 ML VIAL IV PRN (01:48)
[2017-12-16] MEDS: ALBUTEROL/IPRATROPIUM 3 ML NEB RESP TX SCH ×6 (03:06→19:45)
[2017-12-16] MEDS: AZTREONAM 500 MG in SYRINGE 1 EACH IV SCH ×4 (05:50→21:33)
[2017-12-16] MEDS: LEVOTHYROXINE 100 MCG TABLET PO SCH (05:50)
[2017-12-16 06:12] LABS: Basophils % 0.2 % (0.0-0.8); Eosinophils % 0.3 % (0.00-10.9); Hematocrit 28.9 VOL% (35.7-47.0); Immature Granulocytes % 1.9 %; Immature Granulocytes Absolute 0.22 #; Lymphocytes # 1.1 10*3/uL (1.4-4.0); Lymphocytes % 9.7 % (21.3-54.2); Mean Corpuscular HGB Conc 31.1 GM/DL (32-36); Mean Corpuscular Hemoglobin 31 PG (27-34); Mean Corpuscular Volume 100.3 FL (87-102); Mean Platelet Volume 11.2 FL (9.6-12.0); Monocytes # 0.8 10*3/uL (0.11-0.8); Monocytes % 6.6 % (1.7-12.7); NRBC # 0.15 10*3/uL; Neutrophils # 9.4 10*3/uL (1.4-7.4); Neutrophils % 81.3 % (38.7-73.9); Platelet Count 169 T/CUMM (130-400); Red Blood Count 2.88 MC/CUMM (3.8-5.5); White Blood Count 11.5 T/CUMM (4-12)
[2017-12-16 06:40] LABS: INR 4.2; Osmolality,Calculated 281.1 MOS/KG (273-304); Potassium 5.2 MMOL/L (3.5-5.1)
[2017-12-16 06:54] LABS: PT Patient Result 41.9 SECS
[2017-12-16 07:46] LABS: Band Neutrophils 1 % (0-10); Lymphocytes 13 % (20-55); Segmented Neutrophils 81 % (50-85); Total Cells Counted 100
[2017-12-16 07:47] LABS: Macrocytosis 3+; Platelet Estimate Normal
[2017-12-16] MEDS: RANOLAZINE 500 MG TABLET PO SCH ×2 (08:18→21:34)
[2017-12-16] MEDS: CALCIUM ACETATE 667 MG CAPSULE PO SCH ×3 (08:22→17:36)
[2017-12-16] MEDS: predniSONE 10 MG TABLET PO SCH ×2 (08:23→21:35)
[2017-12-16] MEDS: PANTOPRAZOLE 40 MG TABLET PO SCH ×2 (08:23→21:35)
[2017-12-16] MEDS: guaiFENesin/DM ER 600-30 MG TABLET PO SCH ×2 (08:23→21:34)
[2017-12-16] MEDS: NEBIVOLOL 5 MG TABLET PO SCH (08:24)
[2017-12-16] MEDS: levETIRAcetam 500 MG TABLET PO SCH ×2 (08:24→21:35)
[2017-12-16] MEDS: sitaGLIPtin 25 MG TABLET PO SCH (08:24)
[2017-12-16] MEDS: BUDESONIDE/FORMOTEROL 160-4.5 INHALER 6 GM INH SCH ×2 (08:25→21:35)
[2017-12-16] MEDS: OLANZapine 2.5 MG TABLET PO SCH ×2 (09:02→21:34)
[2017-12-16] MEDS: CINACALCET 30 MG TABLET PO SCH (17:37)
[2017-12-16] MEDS ORDERED: WARFARIN 3 MG TABLET PO ONE (18:00)
[2017-12-16] MEDS: rOPINIRole 1 MG TABLET PO SCH (21:34)
[2017-12-16] MEDS: PRAVASTATIN 20 MG TABLET PO SCH (21:35)
[2017-12-17] MEDS: ALBUTEROL/IPRATROPIUM 3 ML NEB RESP TX SCH ×4 (00:25→11:00)
[2017-12-17] MEDS: AZTREONAM 500 MG in SYRINGE 1 EACH IV SCH ×2 (03:55→12:07)
[2017-12-17 05:28] LABS: Basophils % 0.3 % (0.0-0.8); Eosinophils # 0.1 10*3/uL (0.0-0.87); Eosinophils % 0.4 % (0.00-10.9); Hematocrit 29.5 VOL% (35.7-47.0); Hemoglobin 9.5 GM/DL (12.0-16.0); Immature Granulocytes % 2.4 %; Immature Granulocytes Absolute 0.32 #; Lymphocytes # 1.7 10*3/uL (1.4-4.0); Lymphocytes % 12.6 % (21.3-54.2); Mean Corpuscular HGB Conc 32.2 GM/DL (32-36); Mean Corpuscular Hemoglobin 32 PG (27-34); Mean Corpuscular Volume 98.7 FL (87-102); Mean Platelet Volume 11.7 FL (9.6-12.0); Monocytes % 7.2 % (1.7-12.7); NRBC # 0.13 10*3/uL; Neutrophils # 10.5 10*3/uL (1.4-7.4); Neutrophils % 77.1 % (38.7-73.9); Platelet Count 198 T/CUMM (130-400); Red Blood Count 2.99 MC/CUMM (3.8-5.5); Red Cell Distribution Width 20.8 % (9.3-17.3); White Blood Count 13.6 T/CUMM (4-12)
[2017-12-17 05:34] LABS: INR 4.2
[2017-12-17 05:42] LABS: PT Patient Result 42.1 SECS
[2017-12-17 05:45] LABS: Calcium 7.5 MG/DL (8.5-10.1); Osmolality,Calculated 283.5 MOS/KG (273-304); Potassium 5.3 MMOL/L (3.5-5.1)
[2017-12-17] MEDS: LEVOTHYROXINE 100 MCG TABLET PO SCH (06:02)
[2017-12-17] MEDS: guaiFENesin/DM ER 600-30 MG TABLET PO SCH (08:57)
[2017-12-17] MEDS: levETIRAcetam 500 MG TABLET PO SCH (08:58)
[2017-12-17] MEDS: PANTOPRAZOLE 40 MG TABLET PO SCH (08:58)
[2017-12-17] MEDS: sitaGLIPtin 25 MG TABLET PO SCH (08:58)
[2017-12-17] MEDS: CALCIUM ACETATE 667 MG CAPSULE PO SCH ×2 (08:58→12:10)
[2017-12-17] MEDS: RANOLAZINE 500 MG TABLET PO SCH (08:58)
[2017-12-17] MEDS: NEBIVOLOL 5 MG TABLET PO SCH (08:59)
[2017-12-17] MEDS: predniSONE 10 MG TABLET PO SCH (08:59)
[2017-12-17] MEDS: BUDESONIDE/FORMOTEROL 160-4.5 INHALER 6 GM INH SCH (09:00)
[2017-12-17] MEDS ORDERED: LEVOFLOXACIN 250 MG TABLET PO SCH (09:00)
[2017-12-17] MEDS: OLANZapine 2.5 MG TABLET PO SCH (09:04)
[2017-12-17 12:05] VITALS: BP 96/51
== END 2017-12-17 16:00 | disposition home health service (06) | DRG 193 ==
LOC: EDUNIT# → N.EDINP 14:54 → N.ED 14:54 → N.TELEN 21:22
PROVIDERS: ADMIT Internal Medicine Cardiovascular Disease; ATTEND Internal Medicine Cardiovascular Disease